=== PATIENT | male | born 1945 | race Caucasian/White ===

== ENCOUNTER 2017-12-26 07:55 | Day surgery (SDC) | payer MEDICARE, SELFPAY ==
[2017-12-26] VITALS (17 sets, daily range): BP systolic 60–122; BP diastolic 37–70; PULSE 64–76; RESP 14–20; TEMP 36.1–36.8; O2SAT 96–100; BMI 29.2
[2017-12-26] MEDS: SODIUM CHLORIDE 0.9% 1,000 ML 200 ML IV (08:57)
--- NOTE | 2017-12-26 09:08 | PM.HP.1 ---
History of Present Illness Chief complaint: colonoscopy [id number] Narrative: Shantanu Underwood is a 72 year old male Patient has a history of colon cancer with metastatic disease to the liver. He underwent a resection of his right colon and there was an exploration and the liver lesion after treatment had disappeared and become scar. He has had no recurrence since apparently. Patient History Medical History Diabetes mellitus treated with oral medication (Acute) Hypertension, essential (Acute) Peripheral vascular disease of extremity (Acute) Sleep apnea in adult (Acute) Surgical History Status post vascular bypass (Acute) Status post colectomy Family & Social History Social History: household members spouse Meds Home Medications Medication Instructions Recorded Confirmed Type Glucose: Test Strips 0 str QDAY #100 08/26/17 Rx atenolol 50 mg PO QDAY #90 tabs 08/26/17 Rx atorvastatin [Lipitor] 20 mg PO HS #90 tabs 08/26/17 Rx clopidogrel [Plavix] 75 mg PO QDAY #90 tabs 08/26/17 Rx lisinopril 5 mg PO QDAY #90 tabs 08/26/17 Rx metformin 1,000 mg PO BID #180 tab 08/26/17 Rx Allergies Allergy/AdvReac Type Severity Reaction Status Date / Time No Known Drug Allergies Allergy Verified 12/26/17 08:15 Review of Systems Review of Systems All systems reviewed & are unremarkable except as noted in HPI and below Exam Vital Signs (past 8 hours): Vital Signs - 8 hr 12/26/17 08:22 Temperature 98.2 F Pulse Rate 76 Respiratory Rate 16 Blood Pressure 122/70 H Pulse Oximetry 99 Pulse Oximetry 99 Oxygen Delivery Method Room Air Narrative Exam Narrative: Obese cooperative patient no apparent distress. His eyes are nonicteric. Lungs are clear to auscultation. Heart regular rate and rhythm without murmur gallop. Abdomen is soft protuberant nontender without mass. Alert oriented x3. Scars on left and right leg. The bypass is patent with a palpable pulse at the leg. Assessment & Plan Plan: Plan: Colonoscopy. Last exam 6 years ago. I have discussed procedure rationale. Risks of bleeding, perforation, failure to find removal lesions potential tattoo . Is a appears to understand wishes to proceed.
--- NOTE | 2017-12-26 09:14 | P.HP_ITS ---
History of Present Illness Chief complaint: colonoscopy [id number] Narrative: Shantanu Underwood is a 72 year old male Patient has a history of colon cancer with metastatic disease to the liver. He underwent a resection of his right colon and there was an exploration and the liver lesion after treatment had disappeared and become scar. He has had no recurrence since apparently. Patient History Medical History Diabetes mellitus treated with oral medication (Acute) Hypertension, essential (Acute) Peripheral vascular disease of extremity (Acute) Sleep apnea in adult (Acute) Surgical History Status post vascular bypass (Acute) Status post colectomy Family & Social History Social History: household members spouse Meds Home Medications Medication Instructions Recorded Confirmed Type Glucose: Test Strips 0 str QDAY #100 08/26/17 Rx atenolol 50 mg PO QDAY #90 tabs 08/26/17 Rx atorvastatin [Lipitor] 20 mg PO HS #90 tabs 08/26/17 Rx clopidogrel [Plavix] 75 mg PO QDAY #90 tabs 08/26/17 Rx lisinopril 5 mg PO QDAY #90 tabs 08/26/17 Rx metformin 1,000 mg PO BID #180 tab 08/26/17 Rx Allergies Allergy/AdvReac Type Severity Reaction Status Date / Time No Known Drug Allergies Allergy Verified 12/26/17 08:15 Review of Systems Review of Systems All systems reviewed & are unremarkable except as noted in HPI and below Exam Vital Signs (past 8 hours): Vital Signs - 8 hr 3 12/26/17 08:22 Temperature 98.2 F Pulse Rate 76 Respiratory Rate 16 Blood Pressure 122/70 H Pulse Oximetry 99 Pulse Oximetry 99 Oxygen Delivery Method Room Air Narrative Exam Narrative: Obese cooperative patient no apparent distress. His eyes are nonicteric. Lungs are clear to auscultation. Heart regular rate and rhythm without murmur gallop. Abdomen is soft protuberant nontender without mass. Alert oriented x3. Scars on left and right leg. The bypass is patent with a palpable pulse at the leg. Assessment & Plan Plan: Plan: Colonoscopy. Last exam 6 years ago. I have discussed procedure rationale. Risks of bleeding, perforation, failure to find removal lesions potential tattoo . Is a appears to understand wishes to proceed.
--- NOTE | 2017-12-26 09:27 | SUR.OPER ---
to endo from opd via cart respirations unlabored iv patent positioned per self for procedure
[2017-12-26] MEDS: MIDAZOLAM 5 MG/5 ML VIAL 4 MG IV (09:43)
[2017-12-26] MEDS: fentaNYL 250 MCG/5 ML INJ 150 MCG IV (09:43)
--- NOTE | 2017-12-26 09:44 | P.OP.ENDO_ITS ---
Operative Date/Time/Diagnoses - Date of procedure: 12/26/17 Time of procedure: 09:39 Pre-op diagnosis: Screening examination. History of colon cancer. Last exam 6 years ago. Post-op diagnosis: same (Diverticulosis, internal hemorrhoids) Procedure & Clinicians Study performed: Colonoscopy to the anastomosis. Same procedure as scheduled: Yes Indications: Screening Surgeon: Balaji Neff Procedure Notes SCOAP/Timeout: Performed Procedure in detail: The patient was placed in the left lateral decubitus position and underwent IV sedation directed by the surgeon consisting of fentanyl and Versed. Digital exam was remarkable for a flat prostate and a tight anus. He had a posterior midline sentinel pile.. The scope was inserted and advanced through the rectum into the sigmoid, descending, transverse, and ascending colon. I noted diverticulosis scattered in the sigmoid. No polyps were seen.. The anastomosis was reached identified by the blind and appearance , visible sutures, and the terminal small bowel at the anastomosis which was cannulated.. The terminal small bowel was normal in appearance. The scope was gradually brought out. No polyps were found The scope ultimately was retroflexed in the rectum. The appearance was internal hemorrhoids without ulceration. The scope was removed and the patient tolerated the procedure well Scope withdrawal time: Not applicable due to short co Sedation minutes: 20 Findings: diverticulosis and internal hemorrhoids Specimen(s): none sent Complications: none Recommendations: Colonscopy in 5 years Disposition: PACU
--- NOTE | 2017-12-26 09:47 | SUR.OPER ---
iv pulled out when patient turned. site and catheter intact
--- NOTE | 2017-12-26 10:09 | PM.PREOP ---
Pre-operative Note Interval Note Pre-op Check: History & Physical exam performed today H&P completed within 30 days and has changed as indicated here:: No changes. This is a late entry. ASA Class (for procedural sedation): III
--- NOTE | 2017-12-26 10:37 | SUR.PHASEI ---
Prolonged PACU stay related to vital signs. Have changed cuff placement. Patient in Trendelenberg with IVF open. Cognitively clear when awake, and awakens easily and quickly to voice, but otherwise sleeping.
--- NOTE | 2017-12-26 11:04 | SUR.PHASEI ---
Late note (10:55). Transferred to Phase 2 because has been totally stable, even BP that remains low. More routinely wakeful as well. Can watch in Phase 2 with IV remaining in situ.
== END 2017-12-26 12:10 | disposition home or self-care (01) ==
PROVIDERS: PCP Family Medicine; Visit Provider Specialist
PROC: 0DJD8ZZ Inspection of Lower Intestinal Tract, Via Natural or Artificial Opening Endoscopic (ICD-10-PCS; CPT 45378; principal; 2017-12-26 08:45)
DX: Z85.038 Personal history of other malignant neoplasm of large intestine (principal); K57.30 Diverticulosis of large intestine without perforation or abscess without bleeding; K64.8 Other hemorrhoids; Z90.49 Acquired absence of other specified parts of digestive tract; E11.9 Type 2 diabetes mellitus without complications; I10 Essential (primary) hypertension; G47.33 Obstructive sleep apnea (adult) (pediatric); I73.9 Peripheral vascular disease, unspecified
CPT/HCPCS: G0105; 99152; J2250; J3010

== ENCOUNTER → 2018-06-15 13:29 | Outpatient (REF) | payer MEDICARE, SELFPAY | LOC: LAB 13:29 | PROVIDERS: PCP Family Medicine; Visit Provider Dermatology MOHS-Micrographic Surgery | DX: L01.01 Non-bullous impetigo (principal) | CPT/HCPCS: 87070; 87075; 87077; 87147; 87186; 87205 ==

== ENCOUNTER 2018-07-08 09:34 | Emergency (ER) | payer MEDICARE, SELFPAY ==
[2018-07-08] VITALS (7 sets, daily range): BP systolic 91–129; BP diastolic 58–86; PULSE 70–97; RESP 14–21; TEMP 36.8; O2SAT 97–100
--- NOTE | 2018-07-08 10:34 | ED.GENADULT ---
HPI - General Adult General Chief complaint: Urogenital-Male Stated complaint: THINKS HE HAS KIDNEY STONES Time Seen by Provider: 07/08/18 09:55 Source: patient Mode of arrival: ambulatory Limitations: no limitations History of Present Illness HPI narrative: Patient is a 73-year-old male who presents with a variety of complaints. His complaint is he has left-sided flank pain. He does have a history of kidney stones only 1 6 years ago. As he feels like he has left flank pain it sometimes is radiating it has been rather constant. He cannot get comfortable at night when he sleeps. He denies any injury no radiation to his leg. No real radiation around to his abdomen or groin. He has no blood in his urine. No fevers. He occasionally feels nauseated but no vomiting. Is also complaining of shortness of breath. He says he has shortness of breath with exertion. Related Data Home Medications Medication Instructions Recorded Confirmed Glucose: Test Strips 0 str MISCELLANEOUS QDAY 07/08/18 07/08/18 atenolol 50 mg PO DAILY 07/08/18 07/08/18 atorvastatin [Lipitor] 20 mg PO BEDTIME 07/08/18 07/08/18 clopidogrel [Plavix] 75 mg PO DAILY 07/08/18 07/08/18 doxycycline hyclate 20 mg PO DAILY 07/08/18 07/08/18 lisinopril 5 mg PO DAILY 07/08/18 07/08/18 Previous Rx's Medication Instructions Recorded metformin 1,000 mg PO BID #180 tab 08/26/17 Allergies Allergy/AdvReac Type Severity Reaction Status Date / Time No Known Drug Allergies Allergy Verified 03/27/18 13:40 Review of Systems Review of Systems All systems reviewed & are unremarkable except as noted in HPI and below Constitutional Denies chills, Denies fever(s), Denies lethargy and Denies weakness ENT Ears, Nose, Mouth, and Throat: Denies change in voice, Denies vertigo, Denies dizziness, Denies neck pain and Denies sore throat Cardiovascular Denies chest pain, Denies irregular heart rhythm, Denies lightheadedness, Denies palpitations, Reports dyspnea on exertion and Denies orthopnea Respiratory Denies cough, Denies hemoptysis, Reports dyspnea on exertion and Denies wheezing Gastrointestinal Gastrointestinal: Reports abdominal pain (Left-sided), Denies change in bowel habits, Denies diarrhea, Denies nausea and Denies vomiting Genitourinary Denies hematuria, Denies flank pain, Denies urinary incontinence and Denies urinary urgency Musculoskeletal Denies neck pain Neurologic Denies vertigo, Denies dizziness and Denies weakness Endocrine Denies palpitations Allergic/Immunologic Denies wheezing [facility] Medical History Zjsysal-Dynxx-Fhfvf disease (Acute) Kidney stones (Acute) Diabetes mellitus treated with oral medication (Acute) Hypertension, essential (Acute) Peripheral vascular disease of extremity (Acute) Sleep apnea in adult (Acute) Surgical History Status post vascular bypass (Acute) Status post colectomy Social History household members: spouse Smoking Status: Former smoker Exam Initial Vital Signs Initial Vital Signs: Vital Signs Temperature 98.3 F 07/08/18 09:35 Pulse Rate 70 07/08/18 09:35 Respiratory Rate 14 07/08/18 09:35 Blood Pressure 129/67 07/08/18 09:35 Pulse Oximetry 100 07/08/18 09:35 Const General: cooperative and ill appearing (Chronic) Orientation: alert, awake and oriented x3 HENMT Head: normal to inspection and normocephalic Eyes General: appearance normal, both eyes and all related structures Neck Neck: normal visual inspection, full ROM and no meningeal signs Chest Chest: normal inspection of the chest and normal palpation of entire chest wall Resp Effort & Inspection: normal respiratory effort and able to speak in complete sentences Auscultation: clear to auscultation bilaterally, no rales, no rhonchi and no wheezes Cardio Rate: regular rate Rhythm: regular rhythm Heart Sounds: S1 normal and S2 normal GI Inspection: normal to inspection Palpation: soft, No firm and tender (Mild tenderness all left side no guarding no rebound) General: CVA tenderness (Mild left, no right CVA tenderness) Skin General: no rashes or lesions noted, No jaundice and No petechiae Neuro General: alert, awake and oriented x3 Cranial Nerves: CN's II-XI intact bilaterally Speech: speech normal Gait: normal gait Extrem Other: Extremity muscle wasting full range of motion Course Orders Ordered: ED Orders 07/08/18 10:46 XR chest 1V Stat EKG-12 Lead Stat 07/08/18 10:51 CT kidney ureter bladder (KUB) Stat 07/08/18 10:55 Complete Blood Count AUTO DIFF Stat Comprehensive Metabolic Panel Stat Lipase Stat Partial Thromboplastin Time Stat Prothrombin Time INR Stat Troponin & CK Cardiac Panel Stat Discontinued Medications Albuterol (Ventolin) 2.5 mg INH NOW ONE Stop: 07/08/18 10:39 Last Admin: 07/08/18 10:39 Dose: 2.5 mg Dextrose (D50w) 25 gm IV NOW ONE Stop: 07/08/18 12:44 Last Admin: 07/08/18 13:56 Dose: 25 gm Furosemide (Lasix) 40 mg IV NOW ONE Stop: 07/08/18 12:44 Last Admin: 07/08/18 13:56 Dose: 40 mg Sodium Chloride (Normal Saline 0.9%) 1,000 mls @ 1,000 mls/hr IV BOLUS ONE Stop: 07/08/18 13:43 Last Admin: 07/08/18 13:56 Dose: 1,000 mls/hr Insulin Human Regular (Humulin R) 10 unit IV NOW ONE Stop: 07/08/18 12:44 Last Admin: 07/08/18 13:56 Dose: 10 unit Ketorolac Tromethamine (Toradol) 30 mg IM NOW ONE Stop: 07/08/18 12:00 Last Admin: 07/08/18 12:08 Dose: 30 mg Sodium Polystyrene Sulfonate (Kayexalate) 30 gm PO NOW ONE Stop: 07/08/18 12:44 Last Admin: 07/08/18 13:03 Dose: 30 gm Vital Signs - 8 hr 07/08/18 09:35 07/08/18 10:40 07/08/18 13:01 Temperature 98.3 F Pulse Rate 70 97 H 80 Respiratory Rate 14 16 14 Blood Pressure 129/67 Blood Pressure [Left Arm] 116/66 Pulse Oximetry 100 97 98 07/08/18 13:30 07/08/18 14:10 07/08/18 14:39 Temperature Pulse Rate 78 84 84 Respiratory Rate 21 18 20 Blood Pressure Blood Pressure [Left Arm] 108/86 114/83 91/58 L Pulse Oximetry 98 98 100 07/08/18 14:40 Temperature Pulse Rate 80 Respiratory Rate 19 Blood Pressure Blood Pressure [Left Arm] 93/62 Pulse Oximetry 100 Medical Decision Making Lab Data Lab results reviewed: Yes I reviewed the patient's lab results. Result diagrams: 07/08/18 10:55 07/08/18 10:55 Lab Results 07/08/18 07/08/18 07/08/18 Range/Units 10:55 10:55 10:55 WBC 9.4 (4.5-11.0) X10^3/uL RBC 4.19 L (4.5-5.9) X10^6/uL Hgb 11.8 L (13.5-17.5) g/dL Hct 36.2 L (41-53) % MCV 86.4 (80-100) fL MCH 28.2 (26-34) PG MCHC 32.6 (30-36) % RDW 16.8 H (11.6-14.8) % Plt Count 180 (150-400) X10^3/uL Neut % (Auto) 81.8 H (50-75) % Lymph % (Auto) 9.3 L (25-40) % [place] % (Auto) 8.2 (3-14) % Eos % (Auto) 0.3 L (2-4) % Baso % (Auto) 0.4 (0-2) % Neut # (Auto) 7700 H (9844-6456) /uL PT 11.6 (10.1-12.7) SECONDS INR 1.0 (0.9-1.3) APTT 32 (26.4-36.2) SECONDS Sodium 140 (137-145) mmol/L Potassium 6.2 H (3.4-5.1) mmol/L Chloride 108 H (98-107) mmol/L Carbon Dioxide 12 L (22-32) mmol/L BUN 75 H (9-20) mg/dL Creatinine 6.90 H (0.66-1.25) mg/dL Estimated GFR 7.9 L (>60) mL/min BUN/Creatinine Ratio 10.9 (6-22) Glucose 125 H (80-110) mg/dL Calcium 9.1 (8.4-10.2) mg/dL Total Bilirubin 0.3 (0.2-1.3) mg/dL AST 13 L (17-59) IU/L ALT 30 (21-72) IU/L Alkaline Phosphatase 75 (38-126) U/L Total Creatine Kinase 82 (55-170) U/L CK-MB (CK-2) TNP CK-MB (CK-2) Rel Index TNP Troponin I < 0.012 (0.01-0.034) ng/mL Total Protein 7.7 (6.3-8.2) g/dL Albumin 4.5 (3.5-5.0) g/dL Globulin 3.2 (1.7-4.1) g/dL Albumin/Globulin Ratio 1.4 (1.0-2.8) Lipase 267 (23-300) U/L Point of Care Testing Glucose POC 196 Urine Dip Bedside Urine Glucose Negative Bedside Urine Bilirubin - Negative Bedside Urine Ketone - Negative Urine Specific [place] 1.015 Bedside Urine Occult Blood + Bedside Urine pH 6.0 Bedside Urine Protein +/- 15 Bedside Urine Urobilinogen - Negative Bedside Urine Nitrite - Negative Bedside Urine Leukocytes + 70 Esterase Point of care testing: Point of Care Testing Glucose POC 196 Urine Dip Bedside Urine Glucose Negative Bedside Urine Bilirubin - Negative Bedside Urine Ketone - Negative Urine Specific [place] 1.015 Bedside Urine Occult Blood + Bedside Urine pH 6.0 Bedside Urine Protein +/- 15 Bedside Urine Urobilinogen - Negative Bedside Urine Nitrite - Negative Bedside Urine Leukocytes + [address] scan - abdomen: Radiologist's impression: PROCEDURE: CT KIDNEY URETER BLADDER (KUB) INDICATIONS: left flank pain TECHNIQUE: Noncontrast 5 mm thick sections acquired from the diaphragms to the symphysis. 5 mm thick coronal and sagittal reformats were then performed. For radiation dose reduction, the following was used: automated exposure control, adjustment of mA and/or kV according to patient size. COMPARISON: [facility], CT, CT CHEST ABD PELVIS W CON, 04/17/2015, 12:46. [facility], CT, ABDOMEN/PELVIS WITH CONTRAST, 02/09/2013, 21:55. FINDINGS: Image quality: Excellent. Lung bases: Lung bases are clear. Heart size is normal. Urinary system: Both kidneys are normal in size. There are 3 sub-centimeter calcifications within the left kidney, one in the superior pole and 2 in the inferior pole. The largest measures 3 mm, Hounsfield units 418. It is noted that there was a 9 mm calcification within the renal pelvis on the left in 2014. There is a 9 mm calcification in the proximal left ureter Hounsfield units 1415 causing severe hydronephrosis and perinephric and periureteral stranding. The right kidney demonstrates 3 calcifications all within the superior pole, the largest measuring approximately 7 mm, Hounsfield units 730. There are 3 calcifications identified within the right ureter with a more proximal 2 lesions partially obscured by metallic streak artifact from adjacent clips. However, the 2 most proximal lesions measure 6 mm and 9 mm respectively. The more distal lesion at the proximal aspect of the mid ureter measures approximately 9 mm. Hounsfield units measure 875 1196, and 1124 respectively. There is severe right hydronephrosis and proximal hydroureter. Bladder is incompletely distended with a thickened wall; no calcified bladder stones. The prostate gland is enlarged with calcification. Other solid organs: Liver is normal in size. Gallbladder has been removed. Pancreas is normal in contours. Spleen is normal in size. No adrenal nodules. Peritoneum and bowel: Unenhanced bowel loops demonstrate normal wall thickness and caliber. No free fluid or air. Diverticula without inflammatory change. Nodes and vessels: No retroperitoneal or mesenteric adenopathy by size criteria. Aorta and inferior vena cava are normal in caliber. Abdominal wall: No ventral hernias. Pelvis: No free pelvic fluid. No inguinal hernias or adenopathy. Bones: No suspicious bony lesions. No vertebral body compression fractures. IMPRESSION: 1. Severe bilateral hydronephrosis with obstructing calculi as above. 2. Thickened bladder wall suspected to be secondary to incomplete distention. However, recommend evaluation for cystitis if clinically appropriate, as it can have a similar appearance. 3. Diverticulosis. Dictated by: Yasmeen Saini M.D. on 07/08/2018 at 11:13 Chest x-ray: Radiologist's impression: PROCEDURE: XR CHEST 1V INDICATIONS: short of breath TECHNIQUE: One view of the chest was acquired. COMPARISON: [facility], CT, CT CHEST ABD PELVIS W CON, 04/17/2015, 12:46. [facility], CR, CHEST 2 VIEW, 07/07/2012, 10:10. FINDINGS: Surgical changes and devices: None. Lungs and pleura: No pleural effusions or pneumothorax. Lungs are clear. Left hemidiaphragm is elevated. Mediastinum: Mediastinal contours appear normal. Heart size is normal. Bones and chest wall: No suspicious bony lesions. Overlying soft tissues appear unremarkable. IMPRESSION: Elevated left hemidiaphragm of uncertain etiology. Dictated by: Naty Baptiste MD, PhD on 07/08/2018 at 11:20 ECG Data Attestation: I personally reviewed and interpreted this ECG as follows: Prior ECG tracings: not available for review Interpretation: normal sinus rate 79 [place] interval 146, QRS 85 no Q-waves is no U-waves, in possible Peaked T waves in V2 V3 but very slight. No priors to compare MDM Narrative Medical decision making narrative: I have called [facility] to get in touch with their urologist. However they are full and do not have any beds. I spoke with hospitalist at [facility] says , who happily accepts patient requests I talked to [facility]. I spoke with [facility] for Urology who was made aware of patient. She does agree to see the patient. Patient has been NPO since around 8:00 a.m. he will be going to the OR at [facility] at 3:30 p.m.. Patient remains alert cooperative hemodynamically stable. His ground transport by ambulance is over 4 hr, he will not make it to the OR as scheduled. Air lift has been called. The patient will be going immediately to the OR for lithotripsy and acute renal failure. He has had a bowel movement with the Kayexalate. Critical Care Time Critical Care Time: Yes Total Critical Care Time: 30 Attestation: The high probability of a clinically significant, sudden or life threatening deterioration of the [cardiovascular] system(s) required my full and direct attention, intervention and personal management. The aggregate critical care time was [45] minutes. This time is in addition to time spent performing reported procedures but includes the following: [x] Data Review and interpretation [x] Patient assessment and monitoring of vital signs [x] Documentation [x] Medication orders and management Discharge Plan Departure Patient Disposition: [facility] Clinical Impression: Kidney stones, Acute renal failure, Acute hyperkalemia Instructions: DI for Kidney Stones, DI for Extracorporeal Shock Wave Lithotripsy Prescriptions: No Action metformin 1,000 MG tablet 1,000 mg PO BID Qty: 180 RF: 3 atenolol 25 mg tablet 50 mg PO DAILY RF: 0 doxycycline hyclate 20 mg tablet 20 mg PO DAILY RF: 0 atorvastatin [Lipitor] 20 MG tablet 20 mg PO BEDTIME RF: 0 clopidogrel [Plavix] 75 MG tablet 75 mg PO DAILY RF: 0 lisinopril 5 MG tablet 5 mg PO DAILY RF: 0 Glucose: Test Strips miscellaneous QDAY RF: 0
[2018-07-08] MEDS: ALBUTEROL 2.5 MG/3 ML NEB (ADULT) INH (10:39)
--- NOTE | 2018-07-08 10:46 | DI.RAD.S_ITS ---
PROCEDURE: XR CHEST 1V INDICATIONS: short of breath TECHNIQUE: One view of the chest was acquired. COMPARISON: [facility], CT, CT CHEST ABD PELVIS W CON, 04/17/2015, 12:46. [facility], CR, CHEST 2 VIEW, 07/07/2012, 10:10. FINDINGS: Surgical changes and devices: None. Lungs and pleura: No pleural effusions or pneumothorax. Lungs are clear. Left hemidiaphragm is elevated. Mediastinum: Mediastinal contours appear normal. Heart size is normal. Bones and chest wall: No suspicious bony lesions. Overlying soft tissues appear unremarkable. IMPRESSION: Elevated left hemidiaphragm of uncertain etiology. Dictated by: Naty Baptiste MD, PhD on 07/08/2018 at 11:20 Approved by: Naty Baptiste MD, PhD on 07/08/2018 at 11:21
--- NOTE | 2018-07-08 10:51 | DI.CT.S_ITS ---
PROCEDURE: CT KIDNEY URETER BLADDER (KUB) INDICATIONS: left flank pain TECHNIQUE: Noncontrast 5 mm thick sections acquired from the diaphragms to the symphysis. 5 mm thick coronal and sagittal reformats were then performed. For radiation dose reduction, the following was used: automated exposure control, adjustment of mA and/or kV according to patient size. COMPARISON: [facility], CT, CT CHEST ABD PELVIS W CON, 04/17/2015, 12:46. [facility], CT, ABDOMEN/PELVIS WITH CONTRAST, 02/09/2013, 21:55. FINDINGS: Image quality: Excellent. Lung bases: Lung bases are clear. Heart size is normal. Urinary system: Both kidneys are normal in size. There are 3 sub-centimeter calcifications within the left kidney, one in the superior pole and 2 in the inferior pole. The largest measures 3 mm, Hounsfield units 418. It is noted that there was a 9 mm calcification within the renal pelvis on the left in 2014. There is a 9 mm calcification in the proximal left ureter Hounsfield units 1415 causing severe hydronephrosis and perinephric and periureteral stranding. The right kidney demonstrates 3 calcifications all within the superior pole, the largest measuring approximately 7 mm, Hounsfield units 730. There are 3 calcifications identified within the right ureter with a more proximal 2 lesions partially obscured by metallic streak artifact from adjacent clips. However, the 2 most proximal lesions measure 6 mm and 9 mm respectively. The more distal lesion at the proximal aspect of the mid ureter measures approximately 9 mm. Hounsfield units measure 875 1196, and 1124 respectively. There is severe right hydronephrosis and proximal hydroureter. Bladder is incompletely distended with a thickened wall; no calcified bladder stones. The prostate gland is enlarged with calcification. Other solid organs: Liver is normal in size. Gallbladder has been removed. Pancreas is normal in contours. Spleen is normal in size. No adrenal nodules. Peritoneum and bowel: Unenhanced bowel loops demonstrate normal wall thickness and caliber. No free fluid or air. Diverticula without inflammatory change. Nodes and vessels: No retroperitoneal or mesenteric adenopathy by size criteria. Aorta and inferior vena cava are normal in caliber. Abdominal wall: No ventral hernias. Pelvis: No free pelvic fluid. No inguinal hernias or adenopathy. Bones: No suspicious bony lesions. No vertebral body compression fractures. IMPRESSION: 1. Severe bilateral hydronephrosis with obstructing calculi as above. 2. Thickened bladder wall suspected to be secondary to incomplete distention. However, recommend evaluation for cystitis if clinically appropriate, as it can have a similar appearance. 3. Diverticulosis. Dictated by: Yasmeen Saini M.D. on 07/08/2018 at 11:13 Approved by: Yasmeen Saini M.D. on 07/08/2018 at 11:31
[2018-07-08 11:05] LABS: Add Manual Diff / Slide Review NO; Basophils Percent Auto 0.4 % (0-2); Eosinophils Percent Auto 0.3 % (2-4); Hematocrit 36.2 % (41-53); Hemoglobin 11.8 g/dL (13.5-17.5); Lymphocytes Percent Auto 9.3 % (25-40); Mean Corpuscular HGB Conc 32.6 % (30-36); Mean Corpuscular Hemoglobin 28.2 PG (26-34); Mean Corpuscular Volume 86.4 fL (80-100); Monocytes Percent Auto 8.2 % (3-14); Neutrophils Absolute Auto 7700 /uL (3000-5900); Neutrophils Percent Auto 81.8 % (50-75); Platelet Count 180 X10^3/uL (150-400); Red Blood Cell Count 4.19 X10^6/uL (4.5-5.9); Red Cell Distribution Width 16.8 % (11.6-14.8); White Blood Cell Count 9.4 X10^3/uL (4.5-11.0)
[2018-07-08 11:11] LABS: Prothrombin Time 11.6 SECONDS (10.1-12.7)
[2018-07-08 11:14] LABS: PTT Partial Thromboplastin Tim 32 SECONDS (26.4-36.2)
[2018-07-08 11:15] LABS: Alanine Aminotransferase 30 IU/L (21-72); Albumin 4.5 g/dL (3.5-5.0); Albumin Globulin Ratio 1.4 (1.0-2.8); Alkaline Phosphatase 75 U/L (38-126); Aspartate Aminotransferase 13 IU/L (17-59); BUN Creatinine Ratio 10.9 (6-22); Bilirubin Total 0.3 mg/dL (0.2-1.3); Blood Urea Nitrogen 75 mg/dL (9-20); Calcium 9.1 mg/dL (8.4-10.2); Carbon Dioxide 12 mmol/L (22-32); Chloride 108 mmol/L (98-107); Creatine Kinase 82 U/L (55-170); Estimated Glomerular Filt Rate 7.9 mL/min (>60); Globulin 3.2 g/dL (1.7-4.1); Glucose 125 mg/dL (80-110); HEMOLYSIS < 15 (0-50); Lipase 267 U/L (23-300); Sodium 140 mmol/L (137-145); Total Protein 7.7 g/dL (6.3-8.2)
[2018-07-08 11:31] LABS: Troponin I < 0.012 ng/mL (0.01-0.034)
[2018-07-08 11:33] LABS: Potassium 6.2 mmol/L (3.4-5.1)
[2018-07-08] MEDS: KETOROLAC 60 MG/2 ML VIAL 30 MG IM (12:08)
[2018-07-08] MEDS: SODIUM POLYSTYRENE SULFON/SORB 15 GM/60 ML CUP 30 GM PO (13:03)
--- NOTE | 2018-07-08 13:43 | PC.NURSE ---
youmag power midline cath 20g 8cm line placed upper lt arm cephalic vein. flushes well.
[2018-07-08] MEDS: SODIUM CHLORIDE 0.9% 1,000 ML 1000 ML IV (13:56)
[2018-07-08] MEDS: INSULIN REGULAR 100 UNIT/ML 3 ML VIAL 10 UNIT IV (13:56)
[2018-07-08] MEDS: FUROSEMIDE 40 MG/4 ML VIAL IV (13:56)
[2018-07-08] MEDS: DEXTROSE 50 % IN WATER 25 GM/50 ML SYRINGE IV (13:56)
== END 2018-07-08 15:28 | disposition short-term general hospital (02) ==
PROVIDERS: Emergency Provider Emergency Medicine; PCP Student in an Organized Health Care Education/Training Program
DX: N20.0 Calculus of kidney (principal); N17.9 Acute kidney failure, unspecified; E87.5 Hyperkalemia
CPT/HCPCS: 36415; 51701; 71045; 74176; 80053; 81003; 82550; 82962; 83690; 84484; 85025; 85610; 85730; 93005; 93010; 94150; 94640; 96361; 96372; 96374; 96375; 99285; J1885; J1940; J7613

== ENCOUNTER 2018-07-19 09:05 | Emergency (ER) | payer MEDICARE, SELFPAY ==
[2018-07-19 09:14] VITALS: BP 146/71; PULSE 61; RESP 20; TEMP 36.5; O2SAT 97
--- NOTE | 2018-07-19 09:29 | DI.RAD.S_ITS ---
PROCEDURE: XR KUB INDICATIONS: recent B/L ureteral stent TECHNIQUE: One view of the abdomen acquired. COMPARISON: [facility], CT, CT KIDNEY URETER BLADDER (KUB), 07/08/2018, 10:56. FINDINGS: Surgical changes and devices: Multiple surgical clips are present in the right mid abdomen. There are bilateral ureteral stents in expected position. Bowel: Bowel gas pattern is normal. Soft tissues: Bilateral renal and ureteral calculi are present. Visualized solid organ contours appear normal in size. Bones: No suspicious bony lesions. IMPRESSION: Bilateral renal and ureteral calculi. The ureteral stents are in appropriate position. Dictated by: Gilberto Pollard M.D. on 07/19/2018 at 10:30 Approved by: Gilberto Pollard M.D. on 07/19/2018 at 10:37
--- NOTE | 2018-07-19 09:49 | ED_ITS ---
HPI - General Adult General Chief complaint: Diabetic Problem Stated complaint: DIABETIC PROBLEM Time Seen by Provider: 07/19/18 09:29 Source: patient Mode of arrival: ambulatory Limitations: no limitations History of Present Illness HPI narrative: 73-year-old male presents with his , nonsmoker. He presents with a chief complaint slightly elevated blood sugars in the 160s to 180s and general feeling of malaise and being unwell for the past few days. 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 He had bilateral ureteral stents placed and they are awaiting a resolution of his renal failure to perform lithotripsy. During hospitalization he was encouraged to stop taking his metformin until his creatinine resolves. He has not taken any diabetic meds since his discharge. He was evaluated here on July 08 and transferred that day. He has an upcoming appointment for completion of his surgery on July 29. He is not dizzy nor weak or lightheaded. He denies chest pain or shortness of breath Onset (ago): day(s) Related Data Home Medications Medication Instructions Recorded Confirmed Glucose: Test Strips 0 str MISCELLANEOUS QDAY 07/08/18 07/08/18 atenolol 50 mg PO DAILY 07/08/18 07/08/18 atorvastatin [Lipitor] 20 mg PO BEDTIME 07/08/18 07/08/18 clopidogrel [Plavix] 75 mg PO DAILY 07/08/18 07/08/18 doxycycline hyclate 20 mg PO DAILY 07/08/18 07/08/18 lisinopril 5 mg PO DAILY 07/08/18 07/08/18 Allergies Allergy/AdvReac Type Severity Reaction Status Date / Time No Known Drug Allergies Allergy Verified 07/19/18 09:14 Review of Systems Review of Systems All systems reviewed & are unremarkable except as noted in HPI and below Constitutional Denies chills, Denies fever(s), Denies lethargy, Reports malaise and Reports weakness Eyes Denies change in vision, Denies eye discharge, Denies irritation and Denies loss of vision ENT Ears, Nose, Mouth, and Throat: Denies change in voice, Denies neck pain and Denies sore throat Cardiovascular Denies chest pain, Denies irregular heart rhythm, Denies lightheadedness, Denies palpitations, Denies dyspnea, Denies dyspnea on exertion and Denies orthopnea Respiratory Denies cough, Denies dyspnea, Denies dyspnea on exertion and Denies wheezing Gastrointestinal Gastrointestinal: Denies abdominal pain, Denies change in bowel habits, Denies diarrhea, Denies nausea and Denies vomiting Genitourinary Denies hematuria, Denies flank pain, Denies urinary incontinence and Denies urinary urgency Musculoskeletal Denies neck pain Integumentary/Breasts Denies pruritus, Denies erythema, Denies rash and Denies wounds Neurologic Denies confusion, Denies loss of vision and Reports weakness Psychiatric Denies anxiety, Denies confusion, Denies depression, Denies homicidal ideation and Denies suicidal ideation Endocrine Denies palpitations Hematologic/Lymphatic Denies easy bruising Allergic/Immunologic Denies wheezing [facility] Medical History Kbgspxs-Tdmro-Kornb disease (Acute) Diabetes mellitus treated with oral medication (Acute) Hypertension, essential (Acute) Kidney stones (Acute) Peripheral vascular disease of extremity (Acute) Sleep apnea in adult (Acute) Surgical History Status post vascular bypass (Acute) Status post colectomy Social History household members: spouse Smoking Status: Former smoker Exam Narrative Exam Narrative: 73-year-old male, pleasant and in no significant distress. He appears younger than stated age. Initial Vital Signs Initial Vital Signs: Vital Signs Temperature 97.7 F 07/19/18 09:14 Pulse Rate 61 07/19/18 09:14 Respiratory Rate 20 07/19/18 09:14 Blood Pressure 146/71 H 07/19/18 09:14 Pulse Oximetry 97 07/19/18 09:14 Const General: cooperative and well developed Nutritional Appearance: well nourished Orientation: alert, awake, oriented x3 and not confused [facility] Head: normocephalic and atraumatic Ears: external ears normal and TM's normal bilaterally Nose: external nose normal and No nasal discharge Face and sinus: sinuses nontender, face symmetric, no sinus tenderness and No dry mucous membranes Mouth: oral mucosae normal and moist mucous membranes Teeth and gingiva: dentition normal Throat: tonsils normal and uvula midline Eyes General: appearance normal, both eyes and all related structures Eyelids: eyelids normal Conjunctivae: conjunctivae normal Sclera: sclerae normal Pupils: PERRL EOM: EOM intact bilaterally Neck Neck: normal visual inspection, trachea midline, No lymphadenopathy, No midline deformity and No JVD Lymphatic: No lymphedema Chest Chest: normal inspection of the chest Resp Effort & Inspection: normal respiratory effort, able to speak in complete sentences, no respiratory distress and no use of accessory muscles Auscultation: clear to auscultation bilaterally, no rales, no rhonchi and no wheezes Cardio Rate: regular rate Rhythm: regular rhythm Heart Sounds: no click, no gallops, no murmurs and no rubs Pulses: normal peripheral pulses Back/Spine/Pelvis Back: No CVA tenderness Cervical Spine: cervical ROM normal and No pain with cervical ROM Thoracic/Lumbar Spine: thoracic and lumbar spine normal to inspection Neuro General: alert, oriented x3, gait normal and no focal motor deficits Speech: speech normal Extrem General: full ROM, no clubbing, cyanosis or edema, no pedal edema and no calf tenderness Psych Appearance: well kempt Mental Status: mental status grossly normal Attitude: cooperative Thought Content: normal and suicidality Judgment: judgment good Course Orders Ordered: ED Orders 07/19/18 10:00 Comprehensive Metabolic Panel Stat Lactate (Lactic Acid) Stat Procalcitonin Stat 07/19/18 11:44 Urine Culture Stat Urine Microscopic Stat Reevaluation(s) Reevaluation #1: Patient continues to be largely asymptomatic for the duration of his time in the emergency department Consultations Consultation #1: call to Urology at [facility]. She is comfortable with patient resuming metformin now that renal function has normalized. Happy that labs look good and Xray notes stents in place. She verifies that patient has follow up on 07/29 Vital Signs - 8 hr 07/19/18 10:48 07/19/18 11:00 07/19/18 12:00 Pulse Rate 65 62 64 Respiratory Rate 16 18 Blood Pressure Blood Pressure [Left Arm] 114/74 116/69 137/75 Pulse Oximetry 96 100 100 07/19/18 12:01 Pulse Rate 64 Respiratory Rate 18 Blood Pressure 137/75 Blood Pressure [Left Arm] Pulse Oximetry 100 Medical Decision Making Lab Data Result diagrams: 07/19/18 10:00 Lab Results 07/19/18 07/19/18 07/19/18 Range/Units 10:00 10:00 10:00 Sodium Cancelled 142 Potassium Cancelled 4.6 Chloride Cancelled 106 Carbon Dioxide Cancelled 21 L BUN Cancelled 34 H Creatinine Cancelled 1.20 Estimated GFR Cancelled 59.2 L BUN/Creatinine Ratio Cancelled 28.3 H Glucose Cancelled 143 H Lactate (0.7-2.1) mmol/L Calcium Cancelled 8.6 Total Bilirubin 0.2 (0.2-1.3) mg/dL AST 30 (17-59) IU/L ALT 61 (21-72) IU/L Alkaline Phosphatase 79 (38-126) U/L Total Protein 6.6 (6.3-8.2) g/dL Albumin 3.9 (3.5-5.0) g/dL Globulin 2.7 (1.7-4.1) g/dL Albumin/Globulin Ratio 1.4 (1.0-2.8) Procalcitonin < 0.05 (<0.5) ng/mL Specimen Hemolysis Cancelled Urine RBC (0-5/HPF) Urine WBC (0-5/HPF) Ur Squamous Epith Cells Urine Bacteria (None) Ur Culture Indicated? Micro UA Comment 07/19/18 07/19/18 Range/Units 10:00 11:44 Sodium Potassium Chloride Carbon Dioxide BUN Creatinine Estimated GFR BUN/Creatinine Ratio Glucose Lactate 1.8 (0.7-2.1) mmol/L Calcium Total Bilirubin (0.2-1.3) mg/dL AST (17-59) IU/L ALT (21-72) IU/L Alkaline Phosphatase (38-126) U/L Total Protein (6.3-8.2) g/dL Albumin (3.5-5.0) g/dL Globulin (1.7-4.1) g/dL Albumin/Globulin Ratio (1.0-2.8) Procalcitonin (<0.5) ng/mL Specimen Hemolysis Urine RBC 30-100/hpf H (0-5/HPF) Urine WBC 10-30/hpf H (0-5/HPF) Ur Squamous Epith Cells 0-1 /hpf Urine Bacteria Moderate (10-30) H (None) Ur Culture Indicated? Specimen cultured Micro UA Comment Not Reportable Urine Dip Bedside Urine Glucose Negative Bedside Urine Bilirubin - Negative Bedside Urine Ketone - Negative Urine Specific Slater 1.015 Bedside Urine Occult Blood +++ Bedside Urine pH 6.0 Bedside Urine Protein + 30 Bedside Urine Urobilinogen - Negative Bedside Urine Nitrite - Negative Bedside Urine Leukocytes + 70 Esterase Point of care testing: Urine Dip Bedside Urine Glucose Negative Bedside Urine Bilirubin - Negative Bedside Urine Ketone - Negative Urine Specific Slater 1.015 Bedside Urine Occult Blood +++ Bedside Urine pH 6.0 Bedside Urine Protein + 30 Bedside Urine Urobilinogen - Negative Bedside Urine Nitrite - Negative Bedside Urine Leukocytes + 70 Esterase Discharge Plan Departure Patient Disposition: Home Clinical Impression: Acute hyperglycemia Discharge Date/Time: 07/19/18 12:02 Interventions: ED Discharge Assessment Last Done: 07/19/18 12:01 Instructions: DI for Hyperglycemia -- Adult Activity Restrictions/Additional Instructions: *You have been diagnosed with [ acute mild hyperglycemia ] *What to do: *Take medications as directed: PLEASE RESUME METFORMIN as previously prescribed. Your kidney function has returned to normal *Please call Dr. Ferguson's office tomorrow to schedule an appointment. Tell them you saw Dr. Sepulveda in the Emergency Department and I want you seen in follow up this week to discuss ongoing management of your diabetes. *Return to ER if you should have any new, worsening or concerning symptoms , such as [weakness, fatigue, fever over 101F or other bothersome symptoms ] Prescriptions: No Action atenolol 25 mg tablet 50 mg PO DAILY RF: 0 doxycycline hyclate 20 mg tablet 20 mg PO DAILY RF: 0 atorvastatin [Lipitor] 20 MG tablet 20 mg PO BEDTIME RF: 0 clopidogrel [Plavix] 75 MG tablet 75 mg PO DAILY RF: 0 lisinopril 5 MG tablet 5 mg PO DAILY RF: 0 Glucose: Test Strips miscellaneous QDAY RF: 0 Referrals: Dmitry Ferguson MD [Primary Care Provider] -
[2018-07-19 10:19] LABS: Alanine Aminotransferase 61 IU/L (21-72); Albumin 3.9 g/dL (3.5-5.0); Albumin Globulin Ratio 1.4 (1.0-2.8); Alkaline Phosphatase 79 U/L (38-126); Aspartate Aminotransferase 30 IU/L (17-59); BUN Creatinine Ratio 28.3 (6-22); Bilirubin Total 0.2 mg/dL (0.2-1.3); Blood Urea Nitrogen 34 mg/dL (9-20); Calcium 8.6 mg/dL (8.4-10.2); Carbon Dioxide 21 mmol/L (22-32); Chloride 106 mmol/L (98-107); Estimated Glomerular Filt Rate 59.2 mL/min (>60); Globulin 2.7 g/dL (1.7-4.1); Glucose 143 mg/dL (80-110); HEMOLYSIS < 15 (0-50); Potassium 4.6 mmol/L (3.4-5.1); Sodium 142 mmol/L (137-145); Total Protein 6.6 g/dL (6.3-8.2)
[2018-07-19 10:20] LABS: Lactate (Lactic Acid) 1.8 mmol/L (0.7-2.1)
[2018-07-19 10:36] LABS: Procalcitonin < 0.05 ng/mL (<0.5)
[2018-07-19 10:48] VITALS: BP 114/74; PULSE 65; RESP 16; O2SAT 96
[2018-07-19 11:00] VITALS: BP 116/69; PULSE 62; O2SAT 100
[2018-07-19 12:00] VITALS: BP 137/75; PULSE 64; RESP 18; O2SAT 100
[2018-07-19 12:01] VITALS: BP 137/75; PULSE 64; RESP 18; O2SAT 100
[2018-07-19 12:03] LABS: Bacteria Urine Moderate (10-30); Culture Indicated Urine Specimen Cultured; RBC Urine 30-100/HPF (0-5/HPF); Squamous Epithelial Cell Urine 0-1 /HPF; WBC Urine 10-30/HPF (0-5/HPF)
== END 2018-07-19 12:02 | disposition home or self-care (01) ==
PROVIDERS: Emergency Provider Emergency Medicine; PCP Student in an Organized Health Care Education/Training Program
DX: R73.9 Hyperglycemia, unspecified (principal)
CPT/HCPCS: 36591; 74018; 80053; 81003; 81015; 83605; 84145; 87086; 99283

== ENCOUNTER 2018-07-21 10:05 | Emergency (ER) | payer MEDICARE, SELFPAY ==
[2018-07-21] VITALS (17 sets, daily range): BP systolic 107–162; BP diastolic 61–94; PULSE 82–97; RESP 15–25; TEMP 36.2–36.9; O2SAT 98–100; BMI 28.5
--- NOTE | 2018-07-21 10:12 | DI.RAD.S_ITS ---
PROCEDURE: XR CHEST 1V INDICATIONS: vomiting, short of breath TECHNIQUE: One view of the chest was acquired. COMPARISON: [facility], CR, XR CHEST 1V, 07/08/2018, 11:07. FINDINGS: Surgical changes and devices: None. Lungs and pleura: No pleural effusions or pneumothorax. Lungs are clear. Mediastinum: Mediastinal contours appear normal. Heart size is normal. Bones and chest wall: No suspicious bony lesions. Overlying soft tissues appear unremarkable. IMPRESSION: No acute cardiopulmonary pathology. Dictated by: Leon Stapleton M.D. on 07/21/2018 at 11:08 Approved by: Leon Stapleton M.D. on 07/21/2018 at 11:09
[2018-07-21] MEDS: ALBUTEROL 2.5 MG/3 ML NEB (ADULT) INH (10:26)
[2018-07-21 10:37] LABS: Add Manual Diff / Slide Review NO; Basophils Percent Auto 0.5 % (0-2); Eosinophils Percent Auto 0.9 % (2-4); Hematocrit 25.4 % (41-53); Hemoglobin 8.5 g/dL (13.5-17.5); INR 1.1 (0.9-1.3); Lymphocytes Percent Auto 14.7 % (25-40); Mean Corpuscular HGB Conc 33.3 % (30-36); Mean Corpuscular Hemoglobin 28.4 PG (26-34); Mean Corpuscular Volume 85.3 fL (80-100); Monocytes Percent Auto 4.5 % (3-14); Neutrophils Absolute Auto 12800 /uL (1500-7000); Neutrophils Percent Auto 79.4 % (50-75); Platelet Count 335 X10^3/uL (150-400); Prothrombin Time 12.4 SECONDS (10.1-12.7); Red Blood Cell Count 2.98 X10^6/uL (4.5-5.9); Red Cell Distribution Width 15.7 % (11.6-14.8); White Blood Cell Count 16.1 X10^3/uL (4.5-11.0)
[2018-07-21] MEDS: PANTOPRAZOLE 40 MG VIAL IV (10:39)
[2018-07-21 10:40] LABS: PTT Partial Thromboplastin Tim 26 SECONDS (26.4-36.2)
--- NOTE | 2018-07-21 10:40 | DI.CT.S_ITS ---
PROCEDURE: CT ABDOMEN PELVIS WO CON INDICATIONS: vomiting TECHNIQUE: Noncontrast 5 mm thick sections acquired from the diaphragms to the symphysis. 5 mm coronal and sagittal reformats were then performed. For radiation dose reduction, the following was used: automated exposure control, adjustment of mA and/or kV according to patient size. COMPARISON: [facility], CT, CT KIDNEY URETER BLADDER (KUB), 07/08/2018, 10:56. FINDINGS: Image quality: Excellent. ABDOMEN: Lung bases: Lung bases are clear. Heart size is normal. Solid organs: Liver is normal in size. Metallic densities are again seen in right lower quadrant and abdomen anterior to inferior portion of right hepatic lobe. Gallbladder is surgically absent. Pancreas is normal in contours. 6 mm hypodensity is noted in tail of pancreas and may represent a small cyst or IPMN. Spleen is normal in size. No adrenal nodules. Bilateral kidneys are normal in size. There is interval placement of bilateral ureteral stents. Mild prominence of bilateral renal pelvis and renal collecting system is seen. Mild prominence of bilateral proximal ureters are also noted. Distal ureters are normal in size. Peritoneum and bowel: There is a small hiatal hernia. No gross abnormal bowel wall thickening or mesenteric fat stranding. Postsurgical changes in right side of abdomen is seen with prior surgical anastomosis. Mildly fluid distended small bowel loops are noted in the dilated left upper quadrant abdomen. There is a periumbilical hernia containing multiple segment of small bowel loops with fluid distended small bowel loops entering the herniation sac and decompressed bowel loops exiting the herniation sac suggestive of focal small bowel obstruction in this area. Early incarceration is suspected. No peritoneal free fluid or free air. Nodes and vessels: No retroperitoneal or mesenteric adenopathy by size criteria. Aorta and inferior vena cava are normal in caliber. PELVIS: Genitourinary: Bladder wall thickness is normal. Miscellaneous: No inguinal hernias or adenopathy. Bones: No suspicious bony lesions. No vertebral body compression fractures. IMPRESSION: 1. Interval placement of bilateral ureteral stents with significant improvement in previously noted bilateral moderate to severe hydronephrosis. Mild to moderate residual bilateral hydronephrosis and proximal hydroureter is seen. 2. Umbilical hernia containing segments of small bowel loops with suggestion of small bowel structure at the site of ventral hernia and is concerning for early incarceration. No significant bowel wall thickening or mesenteric fat stranding is seen at this time. No free fluid or free air. Post surgical changes in right side of abdomen. 3. Small height hernia. No free fluid or free air. 4. 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 Dictated by: Leon Stapleton M.D. on 07/21/2018 at 11:34 Approved by: Leon Stapleton M.D. on 07/21/2018 at 11:49
--- NOTE | 2018-07-21 10:40 | DI.CT.S_ITS ---
PROCEDURE: CT ANGIO CHEST PE PROTOCOL INDICATIONS: short of breath TECHNIQUE: After the administration of intravenous contrast, 2 mm thick sections acquired from the pulmonary apices to the posterior costophrenic angles. 3-dimensional maximum intensity projection (MIP) coronal and sagittal reformats were then acquired through the thorax. For radiation dose reduction, the following was used: automated exposure control, adjustment of mA and/or kV according to patient size. COMPARISON: None. FINDINGS: Image quality: Excellent. Pulmonary arteries: Pulmonary arteries are normal in size, and demonstrate no intraluminal filling defects to suggest central pulmonary embolism. Lungs and pleura: Lungs are clear. No pleural effusions or pneumothorax. Central and peripheral airways are patent. Mediastinum: Heart size is normal, without pericardial effusion. No mediastinal or hilar adenopathy. Thoracic aorta is normal in caliber and enhancement. Esophagus is normal in caliber, with a small hiatal hernia. Bones and chest wall: No suspicious bony lesions. Ribs and thoracic spine appear intact throughout. Thyroid gland is within normal limits. No axillary or supraclavicular adenopathy. Abdomen: Visualized upper abdominal solid organs appear normal in the early arterial phase of enhancement. IMPRESSION: 1. No evidence of pulmonary emboli. No thoracic aortic aneurysm or gross dissection. 2. Bilateral lungs are clear. 3. No mediastinal or hilar adenopathy. Small hiatal hernia. Dictated by: Leon Stapleton M.D. on 07/21/2018 at 11:26 Approved by: Leon Stapleton M.D. on 07/21/2018 at 11:31
[2018-07-21 10:42] LABS: Alanine Aminotransferase 46 IU/L (21-72); Albumin 4.1 g/dL (3.5-5.0); Albumin Globulin Ratio 1.6 (1.0-2.8); Alkaline Phosphatase 90 U/L (38-126); Aspartate Aminotransferase 17 IU/L (17-59); BUN Creatinine Ratio 37.3 (6-22); Bilirubin Total 0.2 mg/dL (0.2-1.3); Blood Urea Nitrogen 41 mg/dL (9-20); Calcium 10.2 mg/dL (8.4-10.2); Carbon Dioxide 19 mmol/L (22-32); Chloride 103 mmol/L (98-107); Creatine Kinase 42 U/L (55-170); Estimated Glomerular Filt Rate > 60.0 mL/min (>60); Globulin 2.6 g/dL (1.7-4.1); Glucose 169 mg/dL (80-110); HEMOLYSIS < 15 (0-50); Lactate (Lactic Acid) 3.1 mmol/L (0.7-2.1); Lipase 173 U/L (23-300); Magnesium 1.4 mg/dL (1.6-2.3); Potassium 4.4 mmol/L (3.4-5.1); Sodium 140 mmol/L (137-145); Total Protein 6.7 g/dL (6.3-8.2)
--- NOTE | 2018-07-21 10:42 | ED.SOB ---
HPI - SOB/Dyspnea General Chief Complaint: Shortness of Breath/Dyspnea Stated Complaint: shortness of breath Time Seen by Provider: 07/21/18 10:11 Source: patient, EMS and old records reviewed Mode of arrival: EMS Limitations: no limitations History of Present Illness The patient is a 73-year-old male who presents with shortness of breath. It started last evening he feels like he cannot breathe. He also feels like he might be having some mild anxiety. He has no chest pain. He also started vomiting last evening he said he was vomiting black. No black stools. He has had multiple abdominal surgeries in the past. He does not feel like his abdomen is distended. He was seen evaluated here in July 08 with all large obstructive uropathy causing renal failure and a creatinine of 6.9. He was emergently transferred to the billing [facility] where he had stents placed. He was seen evaluated here on the is with hyperglycemia. At that time his renal function had normalized. He has follow-up appointment July 29 with Urology. He was restarted on metformin on the . MD Complaint: shortness of breath Related Data Home Medications Medication Instructions Recorded Confirmed Glucose: Test Strips 0 str MISCELLANEOUS QDAY 07/08/18 07/08/18 atenolol 50 mg PO DAILY 07/08/18 07/08/18 atorvastatin [Lipitor] 20 mg PO BEDTIME 07/08/18 07/08/18 clopidogrel [Plavix] 75 mg PO DAILY 07/08/18 07/08/18 doxycycline hyclate 20 mg PO DAILY 07/08/18 07/08/18 lisinopril 5 mg PO DAILY 07/08/18 07/08/18 Allergies Allergy/AdvReac Type Severity Reaction Status Date / Time No Known Drug Allergies Allergy Verified 07/19/18 09:14 Review of Systems Review of Systems All systems reviewed & are unremarkable except as noted in HPI and below Constitutional Denies chills, Reports fatigue, Denies fever(s), Denies lethargy and Denies weakness Eyes Denies change in vision, Denies eye discharge, Denies irritation and Denies loss of vision ENT Ears, Nose, Mouth, and Throat: Denies change in voice, Denies neck pain and Denies sore throat Cardiovascular Denies chest pain, Denies irregular heart rhythm, Denies lightheadedness, Denies palpitations, Reports dyspnea and Denies orthopnea Respiratory Reports as per HPI and Reports dyspnea Gastrointestinal Gastrointestinal: Reports as per HPI, Reports abdominal pain, Reports change in stool character (Black), Reports coffee ground emesis, Reports nausea and Reports vomiting Genitourinary Reports as per HPI (Recent ureteral stents placed), Denies hematuria, Denies flank pain, Denies urinary incontinence and Denies urinary urgency Musculoskeletal Denies neck pain Integumentary/Breasts Denies pruritus, Denies erythema, Denies rash and Denies wounds Neurologic Denies loss of vision and Denies weakness Endocrine Reports fatigue and Denies palpitations [facility] Medical History [id number]-Idikb disease (Acute) Diabetes mellitus treated with oral medication (Acute) Hypertension, essential (Acute) Kidney stones (Acute) Peripheral vascular disease of extremity (Acute) Sleep apnea in adult (Acute) Surgical History S/P ureteral stent placement (Acute) Status post vascular bypass (Acute) Status post colectomy Social History household members: spouse Smoking Status: Former smoker Exam Initial Vital Signs Initial Vital Signs: Vital Signs Temperature 97.8 F 07/21/18 10:05 Pulse Rate 97 H 07/21/18 10:05 Respiratory Rate 18 07/21/18 10:05 Blood Pressure 134/67 07/21/18 10:05 Pulse Oximetry 100 07/21/18 10:05 Const General: cooperative, frail appearing and ill appearing (Chronically ill) Orientation: alert, awake and oriented x3 HENMT Head: normal to inspection Mouth: other (Black ground coffee ground emesis around mouth) Eyes General: appearance normal, both eyes and all related structures Eyelids: eyelids normal Conjunctivae: conjunctivae normal Sclera: sclerae normal Pupils: PERRL EOM: EOM intact bilaterally Neck Neck: normal visual inspection and full ROM Chest Chest: normal inspection of the chest Resp Auscultation: clear to auscultation bilaterally, no crackles, no rales, no rhonchi and no wheezes Cardio Rate: regular rate Rhythm: regular rhythm Heart Sounds: S1 normal, S2 normal, no click, no gallops and no murmurs Pulses: normal peripheral pulses GI Inspection: other (Multiple abdominal scars noted) Palpation: soft, no hepatosplenomegaly, No guarding, No pulsatile mass and No tender Auscultation: normal bowel sounds Rectal Exam: heme positive stool (Black guaiac-positive) and hemorrhoids Skin General: no rashes or lesions noted, No jaundice and No petechiae Neuro General: alert, oriented x3, gait normal and no focal motor deficits Speech: speech normal Course Orders Ordered: ED Orders 07/21/18 10:12 Consult to Respiratory Therapy Evaluate & Treat XR chest 1V Stat EKG-12 Lead Stat 07/21/18 10:15 B Type Natriuretic Peptide Stat Complete Blood Count AUTO DIFF Stat Comprehensive Metabolic Panel Stat Lactate (Lactic Acid) Stat Lipase Stat Magnesium Stat Packed Cells Stat Partial Thromboplastin Time Stat Prothrombin Time INR Stat Troponin & CK Cardiac Panel Stat Type and Screen Stat 07/21/18 10:40 CT abdomen pelvis wo con Stat CT angio chest PE protocol Stat 07/21/18 14:58 Lactate 4HR (Lactic Acid Rflx) Stat Discontinued Medications Albuterol (Ventolin) 2.5 mg INH NOW ONE Stop: 07/21/18 10:13 Last Admin: 07/21/18 10:26 Dose: 2.5 mg Hydromorphone HCl (Dilaudid) 0.5 mg IV NOW ONE Stop: 07/21/18 11:16 Last Admin: 07/21/18 11:15 Dose: 0.5 mg Hydromorphone HCl (Dilaudid) 0.5 mg IV NOW ONE Stop: 07/21/18 12:32 Last Admin: 07/21/18 12:37 Dose: 0.5 mg Hydromorphone HCl (Dilaudid) 0.5 mg IV NOW ONE Stop: 07/21/18 14:52 Last Admin: 07/21/18 14:51 Dose: 0.5 mg Ondansetron HCl (Zofran) 4 mg IV NOW ONE Stop: 07/21/18 10:48 Last Admin: 07/21/18 11:14 Dose: 4 mg Pantoprazole Sodium (Protonix) 40 mg IV NOW ONE Stop: 07/21/18 10:16 Last Admin: 07/21/18 10:39 Dose: 40 mg Vital Signs - 8 hr 07/21/18 10:05 07/21/18 10:28 07/21/18 10:30 Temperature 97.8 F Pulse Rate 97 H 90 97 H Respiratory Rate 18 20 20 Blood Pressure 134/67 Blood Pressure [Left Arm] 114/73 Pulse Oximetry 100 98 98 07/21/18 10:54 07/21/18 11:00 07/21/18 11:04 Temperature Pulse Rate 93 H 95 H 92 H Respiratory Rate 20 23 18 Blood Pressure Blood Pressure [Left Arm] 133/76 114/61 107/66 Pulse Oximetry 98 07/21/18 11:08 07/21/18 11:27 07/21/18 12:00 Temperature Pulse Rate 94 H 90 88 Respiratory Rate 20 18 19 Blood Pressure Blood Pressure [Left Arm] 109/67 121/65 121/68 Pulse Oximetry 98 98 100 07/21/18 12:19 07/21/18 12:30 07/21/18 12:34 Temperature 98.5 F 97.1 F L Pulse Rate 94 H 91 H 92 H Respiratory Rate 25 H 15 19 Blood Pressure 118/66 146/66 H Blood Pressure [Left Arm] 146/66 H Pulse Oximetry 100 07/21/18 12:39 07/21/18 13:01 07/21/18 13:37 Temperature 97.5 F L 98.3 F Pulse Rate 91 H 86 82 Respiratory Rate 18 19 19 Blood Pressure 113/70 109/70 150/77 H Blood Pressure [Left Arm] Pulse Oximetry 07/21/18 13:47 07/21/18 14:21 Temperature 98.3 F Pulse Rate 83 82 Respiratory Rate 19 18 Blood Pressure 124/84 Blood Pressure [Left Arm] 162/94 H Pulse Oximetry 100 MDM - SOB/Dyspnea Medical Records Attestation: I reviewed the patient's medical records. Lab Data Attestation: I reviewed the patient's lab results. Result diagrams: 07/21/18 10:15 07/21/18 10:15 Lab Results 07/21/18 07/21/18 07/21/18 Range/Units 10:15 10:15 10:15 WBC 16.1 H (4.5-11.0) X10^3/uL RBC 2.98 L (4.5-5.9) X10^6/uL Hgb 8.5 L (13.5-17.5) g/dL Hct 25.4 L (41-53) % MCV 85.3 (80-100) fL MCH 28.4 (26-34) PG MCHC 33.3 (30-36) % RDW 15.7 H (11.6-14.8) % Plt Count 335 (150-400) X10^3/uL Neut % (Auto) 79.4 H (50-75) % Lymph % (Auto) 14.7 L (25-40) % [place]ble % (Auto) 4.5 (3-14) % Eos % (Auto) 0.9 L (2-4) % Baso % (Auto) 0.5 (0-2) % Neut # (Auto) 01026 H (2912-7456) /uL PT 12.4 (10.1-12.7) SECONDS INR 1.1 (0.9-1.3) APTT 26 L D (26.4-36.2) SECONDS Sodium 140 (137-145) mmol/L Potassium 4.4 (3.4-5.1) mmol/L Chloride 103 (98-107) mmol/L Carbon Dioxide 19 L (22-32) mmol/L BUN 41 H (9-20) mg/dL Creatinine 1.10 (0.66-1.25) mg/dL Estimated GFR > 60.0 (>60) mL/min BUN/Creatinine Ratio 37.3 H (6-22) Glucose 169 H (80-110) mg/dL Lactate (0.7-2.1) mmol/L Calcium 10.2 (8.4-10.2) mg/dL Magnesium 1.4 L (1.6-2.3) mg/dL Total Bilirubin 0.2 (0.2-1.3) mg/dL AST 17 (17-59) IU/L ALT 46 (21-72) IU/L Alkaline Phosphatase 90 (38-126) U/L Total Creatine Kinase 42 L (55-170) U/L CK-MB (CK-2) TNP CK-MB (CK-2) Rel Index TNP Troponin I < 0.012 (0.01-0.034) ng/mL B-Natriuretic Peptide < 100 (<100) Total Protein 6.7 (6.3-8.2) g/dL Albumin 4.1 (3.5-5.0) g/dL Globulin 2.6 (1.7-4.1) g/dL Albumin/Globulin Ratio 1.6 (1.0-2.8) Lipase 173 (23-300) U/L Blood Type Antibody Screen Crossmatch 07/21/18 07/21/18 07/21/18 Range/Units 10:15 10:15 14:58 WBC (4.5-11.0) X10^3/uL RBC (4.5-5.9) X10^6/uL Hgb (13.5-17.5) g/dL Hct (41-53) % MCV (80-100) fL MCH (26-34) PG MCHC (30-36) % RDW (11.6-14.8) % Plt Count (150-400) X10^3/uL Neut % (Auto) (50-75) % Lymph % (Auto) (25-40) % Trimble % (Auto) (3-14) % Eos % (Auto) (2-4) % Baso % (Auto) (0-2) % Neut # (Auto) (3587-7381) /uL PT (10.1-12.7) SECONDS INR (0.9-1.3) APTT (26.4-36.2) SECONDS Sodium (137-145) mmol/L Potassium (3.4-5.1) mmol/L Chloride (98-107) mmol/L Carbon Dioxide (22-32) mmol/L BUN (9-20) mg/dL Creatinine (0.66-1.25) mg/dL Estimated GFR (>60) mL/min BUN/Creatinine Ratio (6-22) Glucose (80-110) mg/dL Lactate 3.1 H 2.5 H (0.7-2.1) mmol/L Calcium (8.4-10.2) mg/dL Magnesium (1.6-2.3) mg/dL Total Bilirubin (0.2-1.3) mg/dL AST (17-59) IU/L ALT (21-72) IU/L Alkaline Phosphatase (38-126) U/L Total Creatine Kinase (55-170) U/L CK-MB (CK-2) CK-MB (CK-2) Rel Index Troponin I (0.01-0.034) ng/mL B-Natriuretic Peptide (<100) Total Protein (6.3-8.2) g/dL Albumin (3.5-5.0) g/dL Globulin (1.7-4.1) g/dL Albumin/Globulin Ratio (1.0-2.8) Lipase (23-300) U/L Blood Type A Positive Antibody Screen Negative Crossmatch See Detail Point of Care Testing Glucose POC 192 Imaging Data Chest x-ray: Radiologist's impression: PROCEDURE: XR CHEST 1V INDICATIONS: vomiting, short of breath TECHNIQUE: One view of the chest was acquired. COMPARISON: [facility], , XR CHEST 1V, 07/08/2018, 11:07. FINDINGS: Surgical changes and devices: None. Lungs and pleura: No pleural effusions or pneumothorax. Lungs are clear. Mediastinum: Mediastinal contours appear normal. Heart size is normal. Bones and chest wall: No suspicious bony lesions. Overlying soft tissues appear unremarkable. IMPRESSION: No acute cardiopulmonary pathology. Dictated by: Leon Stapleton M.D. on 07/21/2018 at 11:08 CT PE: Radiologist's impression: PROCEDURE: CT ANGIO CHEST PE PROTOCOL INDICATIONS: short of breath TECHNIQUE: After the administration of intravenous contrast, 2 mm thick sections acquired from the pulmonary apices to the posterior costophrenic angles. 3-dimensional maximum intensity projection (MIP) coronal and sagittal reformats were then acquired through the thorax. For radiation dose reduction, the following was used: automated exposure control, adjustment of mA and/or kV according to patient size. COMPARISON: None. FINDINGS: Image quality: Excellent. Pulmonary arteries: Pulmonary arteries are normal in size, and demonstrate no intraluminal filling defects to suggest central pulmonary embolism. Lungs and pleura: Lungs are clear. No pleural effusions or pneumothorax. Central and peripheral airways are patent. Mediastinum: Heart size is normal, without pericardial effusion. No mediastinal or hilar adenopathy. Thoracic aorta is normal in caliber and enhancement. Esophagus is normal in caliber, with a small hiatal hernia. Bones and chest wall: No suspicious bony lesions. Ribs and thoracic spine appear intact throughout. Thyroid gland is within normal limits. No axillary or supraclavicular adenopathy. Abdomen: Visualized upper abdominal solid organs appear normal in the early arterial phase of enhancement. IMPRESSION: 1. No evidence of pulmonary emboli. No thoracic aortic aneurysm or gross dissection. 2. Bilateral lungs are clear. 3. No mediastinal or hilar adenopathy. Small hiatal hernia. Dictated by: Leon Stapleton M.D. on 07/21/2018 at 11:26 CT scan - abdomen: Radiologist's impression: PROCEDURE: CT ABDOMEN PELVIS WO CON INDICATIONS: vomiting TECHNIQUE: Noncontrast 5 mm thick sections acquired from the diaphragms to the symphysis. 5 mm coronal and sagittal reformats were then performed. For radiation dose reduction, the following was used: automated exposure control, adjustment of mA and/or kV according to patient size. COMPARISON: [facility], CT, CT KIDNEY URETER BLADDER (KUB), 07/08/2018, 10:56. FINDINGS: Image quality: Excellent. ABDOMEN: Lung bases: Lung bases are clear. Heart size is normal. Solid organs: Liver is normal in size. Metallic densities are again seen in right lower quadrant and abdomen anterior to inferior portion of right hepatic lobe. Gallbladder is surgically absent. Pancreas is normal in contours. 6 mm hypodensity is noted in tail of pancreas and may represent a small cyst or IPMN. Spleen is normal in size. No adrenal nodules. Bilateral kidneys are normal in size. There is interval placement of bilateral ureteral stents. Mild prominence of bilateral renal pelvis and renal collecting system is seen. Mild prominence of bilateral proximal ureters are also noted. Distal ureters are normal in size. Peritoneum and bowel: There is a small hiatal hernia. No gross abnormal bowel wall thickening or mesenteric fat stranding. Postsurgical changes in right side of abdomen is seen with prior surgical anastomosis. Mildly fluid distended small bowel loops are noted in the dilated left upper quadrant abdomen. There is a periumbilical hernia containing multiple segment of small bowel loops with fluid distended small bowel loops entering the herniation sac and decompressed bowel loops exiting the herniation sac suggestive of focal small bowel obstruction in this area. Early incarceration is suspected. No peritoneal free fluid or free air. Nodes and vessels: No retroperitoneal or mesenteric adenopathy by size criteria. Aorta and inferior vena cava are normal in caliber. PELVIS: Genitourinary: Bladder wall thickness is normal. Miscellaneous: No inguinal hernias or adenopathy. Bones: No suspicious bony lesions. No vertebral body compression fractures. IMPRESSION: 1. Interval placement of bilateral ureteral stents with significant improvement in previously noted bilateral moderate to severe hydronephrosis. Mild to moderate residual bilateral hydronephrosis and proximal hydroureter is seen. 2. Umbilical hernia containing segments of small bowel loops with suggestion of small bowel structure at the site of ventral hernia and is concerning for early incarceration. No significant bowel wall thickening or mesenteric fat stranding is seen at this time. No free fluid or free air. Post surgical changes in right side of abdomen. 3. Small height hernia. No free fluid or free air. 4. 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 Dictated by: Leon Stapleton M.D. on 07/21/2018 at 11:34 ECG Data Attestation: I personally reviewed and interpreted this ECG as follows: Prior ECG tracings: available for review Interpretation: Sinus rhythm rate 96 RI interval [address] changes or T-wave inversions similar to previous EKG MDM Narrative Medical decision making narrative: Patient is guaiac positive. He has evidence of hematemesis around his mouth. His hemoglobin has decreased significantly in 2 days. Previous hemoglobin 11.8 today is 8.5. Previous hematocrit 36% today is 25% he has BUN of 41 and creatinine of 1.1 all consistent with upper GI bleed. He was recently put back on Plavix. Patient is hemodynamically stable no further evidence of bleeding while in the ED however due to increased lactic acid and significant drop in blood I have started blood transfusion. I have discussed with , we unfortunately do not have a GI back up at [facility] recommends patient be transferred. I spoke with Dr. Henri palencia hospitalist at [facility] who recommends consulting GI but then will happily accepts patient for admission. I spoke with Vikki, GI physician at [place] who agrees to consultation but no emergent procedure to be done. Conservative measures and monitoring at this time. Critical Care Time Critical Care Time: Yes Total Critical Care Time: 30 Attestation: The high probability of a clinically significant, sudden or life threatening deterioration of the [cardiovascular] system(s) required my full and direct attention, intervention and personal management. The aggregate critical care time was [45] minutes. This time is in addition to time spent performing reported procedures but includes the following: [x] Data Review and interpretation [x] Patient assessment and monitoring of vital signs [x] Documentation [x] Medication orders and management Discharge Plan Departure Patient Disposition: [facility] Clinical Impression: Acute GI bleeding Interventions: ED Discharge Assessment Last Done: 07/21/18 14:51 Prescriptions: No Action atenolol 25 mg tablet 50 mg PO DAILY RF: 0 doxycycline hyclate 20 mg tablet 20 mg PO DAILY RF: 0 atorvastatin [Lipitor] 20 MG tablet 20 mg PO BEDTIME RF: 0 clopidogrel [Plavix] 75 MG tablet 75 mg PO DAILY RF: 0 lisinopril 5 MG tablet 5 mg PO DAILY RF: 0 Glucose: Test Strips miscellaneous QDAY RF: 0 Referrals: Dmitry Ferguson MD [Primary Care Provider] -
[2018-07-21 10:59] LABS: B Type Natriuretic Peptide < 100 (<100); Troponin I < 0.012 ng/mL (0.01-0.034)
[2018-07-21] MEDS: ONDANSETRON 4 MG/2 ML INJ IV (11:14)
[2018-07-21] MEDS: HYDROMORPHONE 1 MG INJ 0.5 MG IV ×3 (11:15→14:51)
[2018-07-21 14:28] LABS: Reflexed Lactate in 2 Hours Y
[2018-07-21 15:07] LABS: Lactate 2HR (Lactic Acid Rflx) 2.5 mmol/L (0.7-2.1)
--- NOTE | 2018-07-21 15:20 | PC.NURSE ---
Patient's second unit of blood continued upon transfer.
--- NOTE | 2018-07-21 16:23 | PC.NURSE ---
Attempted to call JUDY Valiente at [facility] at 1510 and she was unable to take report. Gave her our phone number. Did not receive a call back. Attempted to call her at 1550. She stated the patient had arrived already and she is unable to take report at this time. Stated she will call back. Gave her ED phone number again and have not received a call back.
== END 2018-07-21 14:55 | disposition short-term general hospital (02) ==
PROVIDERS: Emergency Provider Emergency Medicine; PCP Student in an Organized Health Care Education/Training Program
DX: K92.2 Gastrointestinal hemorrhage, unspecified (principal)
CPT/HCPCS: 36415; 36430; 36591; 71045; 71275; 74176; 80053; 82550; 82962; 83605; 83690; 83735; 83880; 84484; 85025; 85610; 85730; 86850; 86900; 86901; 93005; 94640; 96374; 96375; 96376; 99285; 99291; P9016; C9113; J1170; J2405; J7613; Q9967

== ENCOUNTER → 2018-09-10 08:10 | Outpatient (CLI) | payer MEDICARE, SELFPAY ==
[2018-09-10 08:30] LABS: Hematocrit 35.1 % (41-53); Hemoglobin 11.2 g/dL (13.5-17.5); Mean Corpuscular HGB Conc 31.9 % (30-36); Mean Corpuscular Hemoglobin 25.6 PG (26-34); Mean Corpuscular Volume 80.1 fL (80-100); Platelet Count 260 X10^3/uL (150-400); Red Blood Cell Count 4.38 X10^6/uL (4.5-5.9); Red Cell Distribution Width 14.9 % (11.6-14.8); White Blood Cell Count 7.7 X10^3/uL (4.5-11.0)
[2018-09-10 08:43] LABS: Hemoglobin A1C% w Est Avg Glu 6.2 % (4.0-6.0)
[2018-09-10 08:55] LABS: BUN Creatinine Ratio 22.2 (6-22); Blood Urea Nitrogen 20 mg/dL (9-20); Calcium 9.5 mg/dL (8.4-10.2); Carbon Dioxide 24 mmol/L (22-32); Chloride 103 mmol/L (98-107); Cholesterol 126 mg/dL (140-199); Estimated Glomerular Filt Rate > 60.0 mL/min (>60); Glucose 149 mg/dL (80-110); HDL Cholesterol 39 mg/dL (40-60); HEMOLYSIS < 15 (0-50); LDL Cholesterol Calculated 30 mg/dL (<100); Potassium 4.4 mmol/L (3.4-5.1); Sodium 139 mmol/L (137-145); Triglycerides 283 mg/dL (35-150)
[2018-09-10 09:49] LABS: Vitamin D 25 Hydroxy (D3) 37.7 ng/mL (30.0-100.0)
== END ==
PROVIDERS: PCP Student in an Organized Health Care Education/Training Program; Visit Provider Student in an Organized Health Care Education/Training Program
DX: E11.9 Type 2 diabetes mellitus without complications (principal); E55.9 Vitamin D deficiency, unspecified; E78.2 Mixed hyperlipidemia; I10 Essential (primary) hypertension; K92.2 Gastrointestinal hemorrhage, unspecified
CPT/HCPCS: 36415; 80048; 80061; 82306; 83036; 85027

== ENCOUNTER → 2019-04-21 16:02 | Outpatient (CLI) | payer MEDICARE, SELFPAY ==
[2019-04-21 17:35] LABS: Creatinine Urine Random 60.4 mg/dL; Microalbumi Creatinin Ratio Ur 82.7 ug/mg CR (<30)
== END ==
PROVIDERS: PCP Student in an Organized Health Care Education/Training Program; Visit Provider Student in an Organized Health Care Education/Training Program
DX: E11.9 Type 2 diabetes mellitus without complications (principal)
CPT/HCPCS: 36415; 82043; 82570; 83036

== ENCOUNTER → 2019-08-18 13:46 | Outpatient (CLI) | payer MEDICARE, SELFPAY ==
[2019-08-18 14:27] LABS: Add Manual Diff / Slide Review NO; Basophils Absolute Auto 100 /uL (0-100); Basophils Percent Auto 0.6 % (0-2); Eosinophils Absolute Auto 200 /uL (0-450); Eosinophils Percent Auto 1.9 % (2-4); Hematocrit 41.6 % (41-53); Hemoglobin 14.2 g/dL (13.5-17.5); Lymphocytes Absolute Auto 1900 /uL (1100-4500); Lymphocytes Percent Auto 23.3 % (25-40); Mean Corpuscular HGB Conc 34.3 % (30-36); Mean Corpuscular Hemoglobin 31.1 PG (26-34); Mean Corpuscular Volume 90.8 fL (80-100); Monocytes Absolute Auto 600 /uL (0-900); Monocytes Percent Auto 7.3 % (3-14); Neutrophils Absolute Auto 5600 /uL (1500-7000); Neutrophils Percent Auto 66.9 % (50-75); Platelet Count 212 X10^3/uL (150-400); Red Blood Cell Count 4.58 X10^6/uL (4.5-5.9); Red Cell Distribution Width 13.5 % (11.6-14.8); White Blood Cell Count 8.4 X10^3/uL (4.5-11.0)
[2019-08-18 14:37] LABS: HEMOLYSIS < 15 (0-50); Iron 95 ug/dL (49-181)
[2019-08-18 14:39] LABS: Alanine Aminotransferase 31 IU/L (<50); Albumin Globulin Ratio 1.7 (1.0-2.8); Alkaline Phosphatase 70 U/L (38-126); Aspartate Aminotransferase 24 IU/L (17-59); Bilirubin Total 0.4 mg/dL (0.2-1.3); Blood Urea Nitrogen 27 mg/dL (9-20); Calcium 10.2 mg/dL (8.4-10.2); Carbon Dioxide 23 mmol/L (22-32); Chloride 104 mmol/L (98-107); Estimated Glomerular Filt Rate > 60.0 mL/min (>60); Glucose 128 mg/dL (80-110); HEMOLYSIS < 15 (0-50); Sodium 140 mmol/L (137-145)
[2019-08-18 14:47] LABS: Erythrocyte Sedimentation Rate 13 MM/HR (0-15)
[2019-08-18 14:48] LABS: Lipase 2029 U/L (23-300); Percent Iron Saturation 28 % (20-50); Total Iron Binding Capacity 341 ug/dL (261-462); Transferrin 284 mg/dL (206-381)
[2019-08-18 15:09] LABS: TSH w/ Reflex to FT4 3.71 uIU/mL (0.47-4.68)
[2019-08-18 15:28] LABS: Vitamin B12 254 pg/mL (239-931)
[2019-08-18 16:30] LABS: Creatinine Urine Random 51.3 mg/dL
[2019-08-18 16:35] LABS: Microalbumi Creatinin Ratio Ur 109.1 ug/mg CR (<30); Microalbumin Urine Random 5.6 mg/dL (0-1.6)
[2019-08-19 09:08] LABS: C-Reactive Protein Quant 0.5 mg/dL (<1.0)
[2019-08-19 09:15] LABS: Hemoglobin A1C% w Est Avg Glu 6.2 % (4.0-6.0)
== END ==
PROVIDERS: PCP Student in an Organized Health Care Education/Training Program; Visit Provider Student in an Organized Health Care Education/Training Program
DX: E11.9 Type 2 diabetes mellitus without complications (principal); R80.9 Proteinuria, unspecified; I10 Essential (primary) hypertension; R19.5 Other fecal abnormalities; R53.83 Other fatigue; R68.89 Other general symptoms and signs; Z86.2 Personal history of diseases of the blood and blood-forming organs and certain disorders involving the immune mechanism; K85.90 Acute pancreatitis without necrosis or infection, unspecified
CPT/HCPCS: 36415; 80053; 82043; 82570; 82607; 83036; 83540; 83550; 83690; 84443; 85025; 85651; 86140

== ENCOUNTER → 2019-08-20 07:59 | Outpatient (CLI) | payer MEDICARE, SELFPAY ==
--- NOTE | 2019-08-20 08:00 | DI.CT.S_ITS ---
PROCEDURE: CT ABDOMEN PELVIS W CON INDICATIONS: Atypical presentation of pancreatitis TECHNIQUE: After the administration of intravenous contrast, 5 mm thick sections acquired from the diaphragm to the symphysis. 5 mm coronal and sagittal reformats were acquired. For radiation dose reduction, the following was used: automated exposure control, adjustment of mA and/or kV according to patient size. COMPARISON: [facility], CT, CHEST ABDOMEN PELVIS WITH CONTRAST, 02/17/2009, 13:23. [facility], CT, ABDOMEN/PELVIS WITH CONTRAST, 02/09/2013, 21:55. [facility], CT, CT ABDOMEN PELVIS WO CON, 07/21/2018, 10:48. [facility], CT, CT ANGIO CHEST PE PROTOCOL, 07/21/2018, 10:48. [facility], CT, ABDOMEN/PELVIS WITH CONTRAST, 08/22/2014, 15:30. FINDINGS: Image quality: Excellent. ABDOMEN: Lung bases: Streaky opacities in the left base. Heart size is normal. Solid organs: Liver is normal in size and enhancement. Gallbladder is unremarkable. Biliary system is non dilated. Pancreas demonstrates focus of low attenuation within the pancreatic tail, unchanged since 2008. There is no peripancreatic inflammatory change. Spleen is normal in size and enhancement. No adrenal nodules. Kidneys demonstrate normal size and enhancement, without hydronephrosis. Nonobstructing right renal calculus is present, less prominent when compared to prior exam. Peritoneum and bowel: Bowel loops demonstrate normal wall thickness and caliber. No free fluid or air. Colonic diverticula are present without associated inflammatory change. Nodes and vessels: No retroperitoneal or mesenteric adenopathy by size criteria. Aorta and inferior vena cava are normal in size. Miscellaneous: Ventral hernia containing bowel loops is present. PELVIS: Genitourinary: Bladder is diffusely thick and and incompletely distended. Prostate gland is markedly enlarged. Miscellaneous: Bilateral fat-containing inguinal hernias are present. Bones: No suspicious bony lesions. No vertebral body compression fractures. IMPRESSION: 1. Streaky opacities within the left base suggestive of atelectasis versus developing pneumonia. 2. Nonobstructing right renal calculus. 3. No inflammatory change of the pancreas. 4. Diverticulosis. Dictated by: Yasmeen Saini M.D. on 08/20/2019 at 11:48 Approved by: Yasmeen Saini M.D. on 08/20/2019 at 12:01
== END ==
PROVIDERS: PCP Student in an Organized Health Care Education/Training Program; Visit Provider Student in an Organized Health Care Education/Training Program
DX: K85.90 Acute pancreatitis without necrosis or infection, unspecified (principal); N20.0 Calculus of kidney; N40.0 Benign prostatic hyperplasia without lower urinary tract symptoms; K57.90 Diverticulosis of intestine, part unspecified, without perforation or abscess without bleeding
CPT/HCPCS: 74177; Q9967

== ENCOUNTER → 2019-08-21 10:41 | Outpatient (CLI) | payer MEDICARE, SELFPAY ==
[2019-08-21 11:58] LABS: Gamma Glutamyl Transpeptidase 28 U/L (15-73)
[2019-08-21 12:54] LABS: Hep C Virus Ab w/Reflex Quant NEGATIVE s/c (NEGATIVE)
[2019-08-25 08:18] LABS: ANA Pattern MITOTIC, NUMA-LIKE; ANA Screen, IFA POSITIVE (NEGATIVE)
== END ==
PROVIDERS: PCP Student in an Organized Health Care Education/Training Program; Visit Provider Student in an Organized Health Care Education/Training Program
DX: K52.9 Noninfective gastroenteritis and colitis, unspecified (principal); R10.9 Unspecified abdominal pain; R74.8 Abnormal levels of other serum enzymes
CPT/HCPCS: 36415; 82977; 83516; 86038; 86803

== ENCOUNTER → 2020-08-14 08:13 | Outpatient (CLI) | payer MEDICARE, SELFPAY ==
[2020-08-14 10:11] LABS: Hemoglobin A1C% w Est Avg Glu 6.7 % (4.0-6.0)
[2020-08-14 10:44] LABS: BUN Creatinine Ratio 25.6 (6-22); Blood Urea Nitrogen 22 mg/dL (9-20); Calcium 9.8 mg/dL (8.4-10.2); Carbon Dioxide 25 mmol/L (22-32); Chloride 102 mmol/L (98-107); Estimated Glomerular Filt Rate > 60.0 mL/min (>60); Glucose 129 mg/dL (80-110); HEMOLYSIS < 15 (0-50); Potassium 4.9 mmol/L (3.4-5.1); Sodium 135 mmol/L (137-145)
[2020-08-14 12:01] LABS: Creatinine Urine Random 80.6 mg/dL
[2020-08-14 12:38] LABS: Microalbumi Creatinin Ratio Ur 363.5 ug/mg CR (<30); Microalbumin Urine Random 29.3 mg/dL (0-1.6)
== END ==
PROVIDERS: PCP Student in an Organized Health Care Education/Training Program; Referring Provider Student in an Organized Health Care Education/Training Program; Visit Provider Student in an Organized Health Care Education/Training Program
DX: E11.9 Type 2 diabetes mellitus without complications (principal)
CPT/HCPCS: 36415; 80048; 82043; 82570; 83036

== ENCOUNTER 2020-10-26 10:31 | Emergency (ER) | payer MEDICARE, SELFPAY ==
[2020-10-26 10:38] VITALS: BP 183/103; PULSE 81; RESP 15; TEMP 37.1; O2SAT 98; BMI 29.0
--- NOTE | 2020-10-26 10:45 | ED_ITS ---
HPI - General Adult General Chief complaint: Urogenital-Male Stated complaint: dehydrated, lethargic, decreased mobility Time Seen by Provider: 10/26/20 10:37 Source: patient Mode of arrival: other Limitations: no limitations History of Present Illness HPI narrative: Patient is a 75-year-old male who is here for which he thinks is dehydration. He states that he has not been vomiting. He has been tolerating some oral intake. Has had some occasional diarrhea over the past couple days although he has been dehydrated in the past and this feels similar to him. He also states that last night he was up several times trying to urinate but was only getting a small amount out. He is never had an issue with his prostate in the past. He is not having any burning. No fevers. 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 Related Data Previous Rx's Medication Instructions Recorded doxycycline hyclate 20 mg tablet 20 mg PO DAILY #30 tab 09/16/18 atenolol 50 mg tablet 50 mg PO DAILY #90 tab 03/22/20 atorvastatin 20 mg tablet 20 mg PO BEDTIME #90 tab 04/14/20 clopidogrel 75 mg tablet 75 mg PO DAILY #90 tab 04/14/20 metformin 1,000 mg tablet 1,000 mg PO BID #180 tab 04/14/20 colchicine 0.6 mg tablet 0.6 mg PO DAILY #6 tab 05/03/20 albuterol sulfate 90 mcg/actuation 1 puff INHALATION Q6H PRN #8.5 gram 07/31/20 aerosol inhaler lisinopril 5 mg tablet 5 mg PO DAILY #90 tab 07/31/20 Allergies Allergy/AdvReac Type Severity Reaction Status Date / Time No Known Drug Allergies Allergy Verified 10/26/20 10:44 Review of Systems Constitutional Constitutional: Reports fatigue and Denies fever(s) Cardiovascular Cardiovascular: Denies chest pain and Denies dyspnea Respiratory Respiratory: Denies dyspnea Gastrointestinal Gastrointestinal: Denies abdominal pain, Denies change in bowel habits, Denies constipation, Reports diarrhea, Denies nausea and Denies vomiting Genitourinary Genitourinary: Denies dysuria, Reports urinary frequency, Denies urinary incontinence and Reports urinary urgency Genitourinary: Reports urinary frequency, Denies dysuria, Denies urinary incontinence and Reports urinary urgency Musculoskeletal Musculoskeletal: Denies myalgias Integumentary/Breasts Skin/Breast: Denies lesions and Denies rash Neurologic Neurologic: Denies behavioral changes Psychiatric Psychiatric: Denies behavioral changes Endocrine Endocrine: Reports fatigue Hematologic/Lymphatic On Anticoagulants: No Allergic/Immunologic Allergic/Immunologic: Denies urticaria Patient History Medical History Talkdci-Fmtvy-Uless disease Colon cancer Diabetes mellitus treated with oral medication Hypertension, essential Kidney stones Mixed hyperlipidemia Peripheral vascular disease of extremity Sleep apnea in adult Surgical History (Updated 09/15/18 @ 22:49 by Abi Lundberg) S/P ureteral stent placement Status post colectomy (~1995) Status post vascular bypass Family History (Updated 09/15/18 @ 22:51 by Abi Lundberg) Father Ulcer History of blood clots Social History marital status: household members: spouse lives independently: Yes occupational status: other (retired) Smoking Status: Former smoker alcohol intake: never substance use type: does not use Smoking Status: Former smoker alcohol intake frequency: 0-2 drinks per day Substance Use Type: does not use Exam Initial Vital Signs Initial Vital Signs: Vital Signs Temperature 98.7 F 10/26/20 10:38 Pulse Rate 81 10/26/20 10:38 Respiratory Rate 15 10/26/20 10:38 Blood Pressure 183/103 H 10/26/20 10:38 Pulse Oximetry 98 10/26/20 10:38 Const General: cooperative and comfortable Limitations: mental status not altered HENMT Head: normal to inspection and normocephalic Resp Effort & Inspection: normal respiratory effort Auscultation: clear to auscultation bilaterally Cardio Rate: regular rate Rhythm: regular rhythm GI Inspection: non-distended Palpation: soft and No firm Skin Lesions: no lesions Rashes: no rashes Neuro General: patient alert, patient awake and patient oriented x3 Cognition: normal cognition Speech: speech normal Extrem General: normal to inspection and capillary refill normal Psych Appearance: grossly normal and well kempt Course Orders Ordered: ED Orders 10/26/20 11:06 Basic Metabolic Panel Stat Complete Blood Count AUTO DIFF Stat Discontinued Medications Sodium Chloride (Normal Saline 0.9%) 1,000 mls @ 1,000 mls/hr IV BOLUS ONE Stop: 10/26/20 11:53 Last Infusion: 10/26/20 12:10 Dose: 0 mls/hr Documented by: Admin: 10/26/20 11:12 Dose: 1,000 mls/hr Documented by: ALEX Vital Signs Vital signs: Vital Signs - 8 hr 10/26/20 10:38 Temperature 98.7 F Pulse Rate 81 Respiratory Rate 15 Blood Pressure 183/103 H Pulse Oximetry 98 Medical Decision Making Lab Data Lab results reviewed: Yes I reviewed the patient's lab results. Result diagrams: 10/26/20 11:06 10/26/20 11:06 Labs: Lab Results 10/26/20 10/26/20 Range/Units 11:06 11:06 WBC 8.9 (4.5-11.0) X10^3/uL RBC 4.61 (4.5-5.9) X10^6/uL Hgb 14.3 (13.5-17.5) g/dL Hct 42.9 (41-53) % MCV 92.9 (80-100) fL MCH 31.1 (26-34) PG MCHC 33.4 (30-36) % RDW 13.7 (11.6-14.8) % Plt Count 217 (150-400) X10^3/uL Neut % (Auto) 72.7 (50-75) % Lymph % (Auto) 17.4 L (25-40) % [place] % (Auto) 7.4 (3-14) % Eos % (Auto) 2.1 (2-4) % Baso % (Auto) 0.4 (0-2) % Neut # (Auto) 6400 (2929-3925) /uL Lymph # (Auto) 1500 (8635-8511) /uL [place] # (Auto) 700 (0-900) /uL Eos # (Auto) 200 (0-450) /uL Baso # (Auto) 0 (0-100) /uL Sodium 134 L (137-145) mmol/L Potassium 4.9 (3.4-5.1) mmol/L Chloride 101 (98-107) mmol/L Carbon Dioxide 25 (22-32) mmol/L BUN 25 H (9-20) mg/dL Creatinine 0.87 (0.66-1.25) mg/dL Estimated GFR > 60.0 (>60) mL/min BUN/Creatinine Ratio 28.7 H (6-22) Glucose 135 H (80-110) mg/dL Calcium 10.2 (8.4-10.2) mg/dL Urine Dip Bedside Urine Glucose Negative Bedside Urine Bilirubin - Negative Bedside Urine Ketone - Negative Urine Specific [place] 1.02 Bedside Urine Occult Blood + Bedside Urine pH 6.0 Bedside Urine Protein - Negative Bedside Urine Urobilinogen - Negative Bedside Urine Nitrite - Negative Bedside Urine Leukocytes - Negative Esterase Point of care testing: Urine Dip Bedside Urine Glucose Negative Bedside Urine Bilirubin - Negative Bedside Urine Ketone - Negative Urine Specific [place] 1.02 Bedside Urine Occult Blood + Bedside Urine pH 6.0 Bedside Urine Protein - Negative Bedside Urine Urobilinogen - Negative Bedside Urine Nitrite - Negative Bedside Urine Leukocytes - Negative Esterase MDM Narrative Medical decision making narrative: He does have blood in his urine however I have low suspicion for kidney stone based on his presentation. He was informed that he needed to talk with his primary doctor has a follow-up because of this. He did feel better after IV fluids. No indication for antibiotics. No indication for further workup here in the ER. He was given return precautions and follow-up instructions. He expressed understanding and agreement. Discharge Plan Departure Patient Disposition: Home Clinical Impression: Hematuria Instructions: DI for Hematuria Activity Restrictions/Additional Instructions: Continue all of your medications as directed. Be sure to increase your fluid intake. Contact your primary provider for follow-up to discuss the blood that was found in your urine today. Return to the emergency department for any new or worsening symptoms Prescriptions: No Action atenolol 50 mg tablet 50 mg PO DAILY Qty: 90 RF: 3 colchicine 0.6 mg tablet 0.6 mg PO DAILY Qty: 6 RF: 11 ProAir HFA 90 mcg/actuation HFA aerosol inhaler 1 puff INHALATION Q6H PRN (Reason: shortness of breath or wheezing) Qty: 8.5 RF: 11 lisinopril 5 mg tablet 5 mg PO DAILY Qty: 90 RF: 2 doxycycline hyclate 20 mg tablet 20 mg PO DAILY Qty: 30 RF: 7 metformin 1,000 mg tablet 1,000 mg PO BID Qty: 180 RF: 1 atorvastatin [Lipitor] 20 mg tablet 20 mg PO BEDTIME Qty: 90 RF: 1 clopidogrel [Plavix] 75 mg tablet 75 mg PO DAILY Qty: 90 RF: 1 Referrals: Dmitry Ferguson MD [Primary Care Provider] -
[2020-10-26] MEDS: SODIUM CHLORIDE 0.9% 1,000 ML 1000 ML IV (11:12)
[2020-10-26 11:23] LABS: Add Manual Diff / Slide Review NO; Basophils Absolute Auto 0 /uL (0-100); Basophils Percent Auto 0.4 % (0-2); Eosinophils Absolute Auto 200 /uL (0-450); Eosinophils Percent Auto 2.1 % (2-4); Hematocrit 42.9 % (41-53); Hemoglobin 14.3 g/dL (13.5-17.5); Lymphocytes Absolute Auto 1500 /uL (1100-4500); Lymphocytes Percent Auto 17.4 % (25-40); Mean Corpuscular HGB Conc 33.4 % (30-36); Mean Corpuscular Hemoglobin 31.1 PG (26-34); Mean Corpuscular Volume 92.9 fL (80-100); Monocytes Absolute Auto 700 /uL (0-900); Monocytes Percent Auto 7.4 % (3-14); Neutrophils Absolute Auto 6400 /uL (1500-7000); Neutrophils Percent Auto 72.7 % (50-75); Platelet Count 217 X10^3/uL (150-400); Red Blood Cell Count 4.61 X10^6/uL (4.5-5.9); Red Cell Distribution Width 13.7 % (11.6-14.8); White Blood Cell Count 8.9 X10^3/uL (4.5-11.0)
[2020-10-26 11:24] LABS: HEMOLYSIS < 15 (0-50); Potassium 4.9 mmol/L (3.4-5.1)
[2020-10-26 11:25] LABS: BUN Creatinine Ratio 28.7 (6-22); Blood Urea Nitrogen 25 mg/dL (9-20); Calcium 10.2 mg/dL (8.4-10.2); Carbon Dioxide 25 mmol/L (22-32); Chloride 101 mmol/L (98-107); Estimated Glomerular Filt Rate > 60.0 mL/min (>60); Glucose 135 mg/dL (80-110); Sodium 134 mmol/L (137-145)
[2020-10-26 12:58] VITALS: BP 120/70; PULSE 78; O2SAT 98
== END 2020-10-26 12:58 | disposition home or self-care (01) ==
PROVIDERS: Emergency Provider Emergency Medicine; PCP Student in an Organized Health Care Education/Training Program
DX: R31.9 Hematuria, unspecified (principal)
CPT/HCPCS: 36415; 51798; 80048; 81003; 85025; 96360; 99284

== ENCOUNTER → 2021-03-22 10:29 | Outpatient (CLI) | payer MEDICARE, SELFPAY ==
[2021-03-22 11:38] LABS: Hemoglobin A1C% w Est Avg Glu 5.8 % (4.0-6.0)
[2021-03-22 12:18] LABS: Blood Urea Nitrogen 22 mg/dL (9-20); Estimated Glomerular Filt Rate > 60.0 mL/min (>60)
== END ==
PROVIDERS: PCP Student in an Organized Health Care Education/Training Program; Referring Provider Student in an Organized Health Care Education/Training Program; Visit Provider Student in an Organized Health Care Education/Training Program
DX: E11.9 Type 2 diabetes mellitus without complications (principal)
CPT/HCPCS: 36415; 82565; 83036; 84520

== ENCOUNTER 2021-10-15 23:39 | Inpatient (IN) | payer MEDICARE, SELFPAY ==
[2021-10-15 23:40] VITALS: BP 153/73; PULSE 81; RESP 18; TEMP 36.7; O2SAT 97; BMI 29.0
--- NOTE | 2021-10-15 23:48 | ED_ITS ---
HPI - Male Genitourinary General Chief complaint: Urogenital-Male Stated complaint: left kidney pain Time Seen by Provider: 10/15/21 23:41 History of Present Illness HPI Narrative: 76-year-old male former smoker with history of iron deficiency anemia, colon cancer, type 2 diabetes, Charcot Yolande tooth and prior kidney stone presents with his with a chief complaint of a relatively sudden onset left flank pain this started a few hours ago. He states that seems to be worse when he moves or lays down but improves when he is still or standing up. He denies any obvious radiation of his discomfort and states that it is achy and were sharp in nature. He has nausea but denies any vomiting. He denies any fever chills. He has no chest pain or shortness of breath. He denies any change in bowel movements or difficulty with urination. Related Data Previous Rx's Medication Instructions Recorded atenolol 50 mg tablet 50 mg PO DAILY #90 tab 05/31/21 clopidogrel 75 mg tablet (Plavix) 75 mg PO DAILY #90 tab 05/31/21 lisinopril 5 mg tablet 5 mg PO DAILY #90 tab 05/31/21 metformin 1,000 mg tablet 1,000 mg PO BID #180 tab 05/31/21 ropinirole 4 mg tablet 4 mg PO BEDTIME #90 tab 06/14/21 atorvastatin 20 mg tablet (Lipitor) 20 mg PO BEDTIME #90 tab 07/30/21 albuterol sulfate 90 mcg/actuation 1 puff INHALATION Q6H PRN #8.5 gram 08/30/21 aerosol inhaler (ProAir HFA) Allergies Allergy/AdvReac Type Severity Reaction Status Date / Time No Known Drug Allergies Allergy Verified 04/23/21 09:27 Review of Systems Review of Systems Narrative: GENERAL: Denies chills, fatigue, malaise, fever, sweats. HEENT: Denies sinus pain, ear pain, sore throat, difficulty swallowing, d izziness. RESPIRATORY: Denies dyspnea, cough, wheezing, hemoptysis, sputum. CARDIOVASCULAR: Denies chest pain, palpitations, orthopnea, edema, GASTROINTESTINAL: See HPI : See HPI MUSCULOSKELETAL: denies weakness, joint pain, or bony pain SKIN: Denies rash, skin lesions, or other NEUROLOGIC: Denies weakness, headache, numbness, change in speech, confusion, seizures, incoordination. PSYCHIATRIC: No concerning psychosocial issues. 12 point review of systems is negative except for those stated above Patient History Medical History Mhkyvjl-Pidbg-Kesda disease Colon cancer Diabetes mellitus treated with oral medication Hypertension, essential Kidney stones Mixed hyperlipidemia Peripheral vascular disease of extremity Sleep apnea in adult Surgical History S/P ureteral stent placement Status post colectomy (~1995) Status post vascular bypass Family History Father Ulcer History of blood clots Mother No known problems Social History marital status: household members: spouse lives independently: Yes occupational status: other (retired) Smoking Status: Former smoker alcohol intake: never substance use type: does not use Smoking Status: Former smoker alcohol intake frequency: 0-2 drinks per day Substance Use Type: does not use Exam Narrative Exam Narrative: GENERAL: [76 year old patient appears stated age. Well-developed patient, in mild distress. HEAD: Atraumatic. Normocephalic. EYES: Pupils equal round and reactive. Extraocular motions intact. No scleral icterus. No injection or drainage. ENT: Nose without bleeding, purulent drainage. Throat without erythema, tonsillar hypertrophy or exudate. Airway patent. NECK: Trachea midline. Non tender CARDIOVASCULAR: Regular rate and rhythm without murmurs, gallops, or rubs. RESPIRATORY: Clear to auscultation. Breath sounds equal bilaterally. No wheezes, rales, or rhonchi. GASTROINTESTINAL: Abdomen soft, non-tender, nondistended. EXTREMITIES: No edema or joint tenderness. BACK: Nontender without deformity or crepitance. Mild left CVA tenderness on left, no obvious swelling, some Q emphysema, erythema or rash NEURO: AOx3. SKIN: No rash or erythema of visible areas Initial Vital Signs Initial Vital Signs: Vital Signs Temperature 98.1 F 10/15/21 23:40 Pulse Rate 81 10/15/21 23:40 Respiratory Rate 18 10/15/21 23:40 Blood Pressure 153/73 H 10/15/21 23:40 Pulse Oximetry 97 10/15/21 23:40 Course Orders Ordered: Acetaminophen (Acetaminophen 325 Mg Tablet) 975 mg PO Q8H PRN PRN Reason: Pain, Mild (1-3) Albuterol (Albuterol 2.5 Mg/3 Ml Neb (Adult)) 2.5 mg INH Q6H PRN PRN Reason: shortness of breath or wheezing Dextrose (Dextrose 50 % In Water 25 Gm/50 Ml Syringe) 25 gm IV PRN PRN PRN Reason: Hypoglycemia Lactated Ringer's (Lactated Ringers) 1,000 mls @ 75 mls/hr IV CONT MARICARMEN Insulin Human Lispro (Insulin Lispro 100 Unit/Ml 3ml Vial) 0 unit SUBCUT ACHS MARICARMEN; Protocol Lisinopril (Lisinopril 5 Mg Tablet) 5 mg PO DAILY MARICARMEN Oxycodone HCl (Oxycodone Ir 5 Mg Tablet) 5 mg PO Q4HR PRN PRN Reason: Pain, Moderate (4-6) Discontinued Medications Acetaminophen (Acetaminophen 325 Mg Tablet) 975 mg PO PACUNOW ONE Stop: 10/16/21 17:42 Last Admin: 10/16/21 19:07 Dose: Not Given Documented by: CMCFARL Albuterol (Albuterol 2.5 Mg/3 Ml Neb (Adult)) 2.5 mg INH NOW PRN PRN Reason: Coughing, Wheezing, Dyspnea Atenolol (Atenolol 50 Mg Tablet) 50 mg PO DAILY [facility] Last Admin: 10/16/21 10:26 Dose: Not Given Documented by: CMCFARL Atorvastatin Calcium (Atorvastatin 20 Mg Tablet) 20 mg PO BEDTIME [facility] Cefazolin Sodium/Dextrose (Cefazolin 2 Gm/20 Ml Syringe) 2 gm IV NOW ONE Stop: 10/16/21 14:11 Last Admin: 10/16/21 17:25 Dose: 2 gm Documented by: VINCE Clopidogrel Bisulfate (Clopidogrel 75 Mg Tablet) 75 mg PO DAILY [facility] Last Admin: 10/16/21 10:27 Dose: Not Given Documented by: CMCFARL Dextrose (Dextrose 50 % In Water 25 Gm/50 Ml Syringe) 25 gm IV PRN PRN PRN Reason: Hypoglycemia Diazepam (Diazepam 10 Mg/2 Ml Syringe) 5 mg IV Q6HR PRN PRN Reason: restless legs Last Admin: 10/16/21 11:13 Dose: 5 mg Documented by: JEREMY Hydromorphone HCl (Hydromorphone 0.5 Mg Inj) 0.5 mg IV NOW ONE Stop: 10/15/21 23:50 Last Admin: 10/16/21 00:06 Dose: 0.5 mg Documented by: CARLITO Hydromorphone HCl (Hydromorphone 0.5 Mg Inj) 0.5 mg IV NOW ONE Stop: 10/16/21 00:55 Last Admin: 10/16/21 00:58 Dose: 0.5 mg Documented by: LEXI Hydromorphone HCl (Hydromorphone 0.5 Mg Inj) 0.5 mg IV Q4H PRN PRN Reason: Breakthrough pain only (8-10) Last Admin: 10/16/21 12:24 Dose: 0.5 mg Documented by: JEREMY Hydromorphone HCl (Hydromorphone 2 Mg Inj) 0 mg IV Q5MIN PRN PRN Reason: Pain, Severe (7-10) Sodium Chloride (Normal Saline 0.9%) 1,000 mls @ 1,000 mls/hr IV BOLUS ONE Stop: 10/16/21 02:29 Last Infusion: 10/16/21 03:45 Dose: 0 mls/hr Documented by: Admin: 10/16/21 01:47 Dose: 1,000 mls/hr Documented by: EHSAN Sodium Chloride (Normal Saline 0.9%) 500 mls @ 1,000 mls/hr IV BOLUS ONE Stop: 10/16/21 05:06 Last Infusion: 10/16/21 09:38 Dose: 0 mls/hr Documented by: Admin: 10/16/21 04:42 Dose: 1,000 mls/hr Documented by: CARLITO Ceftriaxone Sodium 1,000 mg/ (Sodium Chloride) 100 mls @ 200 mls/hr IV NOW ONE Stop: 10/16/21 06:01 Last Infusion: 10/16/21 16:19 Dose: 0 mls/hr Documented by: Admin: 10/16/21 10:59 Dose: 200 mls/hr Documented by: JEREMY Lactated Ringer's (Lactated Ringers) 1,000 mls @ 100 mls/hr IV CONT MARICARMEN Last Admin: 10/16/21 15:56 Dose: 100 mls/hr Documented by: Infusion: 10/16/21 15:56 Dose: 0 mls/hr Documented by: Infusion: 10/16/21 14:10 Dose: 0 mls/hr Documented by: Admin: 10/16/21 09:54 Dose: 100 mls/hr Documented by: MARYBEL Magnesium Sulfate (Magnesium Sulfate) 2 gm in 50 mls @ 25 mls/hr IV NOW ONE Stop: 10/16/21 13:27 Last Infusion: 10/16/21 16:19 Dose: 0 mls/hr Documented by: MARYBEL Cosigned by: JEREMY Admin: 10/16/21 12:24 Dose: 25 mls/hr Documented by: JEREMY Cosigned by: MARYBEL Lactated Ringer's (Lactated Ringers) 1,000 mls @ 1,000 mls/hr IV BOLUS ONE Stop: 10/16/21 15:08 Last Admin: 10/16/21 14:13 Dose: 1,000 mls/hr Documented by: LUIS Lactated Ringer's (Lactated Ringers) 500 mls @ 25 mls/hr IV CONT MARICARMEN Last Admin: 10/16/21 19:06 Dose: Not Given Documented by: MARYBEL Insulin Human Lispro (Insulin Lispro 100 Unit/Ml 3ml Vial) 0 unit SUBCUT ACHS [facility]; Protocol Last Admin: 10/16/21 17:26 Dose: Not Given Documented by: Admin: 10/16/21 12:38 Dose: Not Given Documented by: Admin: 10/16/21 10:16 Dose: Not Given Documented by: JEREMY Ketorolac Tromethamine (Ketorolac 30 Mg/Ml Vial) 10 mg IV NOW ONE Stop: 10/16/21 01:31 Last Admin: 10/16/21 01:46 Dose: 10 mg Documented by: EHSAN Lidocaine HCl (Lidocaine 2% (Glydo) 6 Ml Gel) 6 ml TOP NOW ONE Stop: 10/16/21 02:48 Last Admin: 10/16/21 03:45 Dose: Not Given Documented by: CARLITO Metformin HCl (Metformin Hcl 500 Mg Tablet) 1,000 mg PO BID [facility] Naloxone HCl (Naloxone 0.4 Mg/Ml Vial) 0.2 mg IV Q2MIN PRN PRN Reason: Opiate Reversal Ondansetron HCl (Ondansetron 4 Mg/2 Ml Inj) 4 mg IV NOW PRN PRN Reason: Nausea And Vomiting Ropinirole HCl (Ropinirole 4 Mg Tablet) 4 mg PO BEDTIME MARICARMEN Sodium Chloride (Sodium Chloride 0.9% Flush) 10 ml IV PRN PRN PRN Reason: Flush Sodium Chloride (Sodium Chloride 0.9% Flush) 10 ml IV BID MARICARMEN Tamsulosin HCl (Tamsulosin 0.4 Mg Capsule) 0.4 mg PO NOW ONE Stop: 10/16/21 01:31 Last Admin: 10/16/21 01:45 Dose: 0.4 mg Documented by: EHSAN Consultations Consultation #1: Discussed with Urology, recommends keeping patient NPO, admitting to hospitalist, officially consulting him for likely stent at the end of the surgical day Vital Signs Vital signs: Vital Signs - 8 hr 10/15/21 23:40 10/16/21 04:52 Temperature 98.1 F Pulse Rate 81 75 Respiratory Rate 18 15 Blood Pressure 153/73 H 139/70 Pulse Oximetry 97 95 MDM - Male Genitourinary Lab Data Result diagrams: 10/16/21 07:40 10/16/21 07:40 Labs: Lab Results 10/15/21 10/15/21 10/16/21 Range/Units 23:59 23:59 03:06 WBC 9.2 (4.5-11.0) X10^3/uL RBC 4.30 L (4.5-5.9) X10^6/uL Hgb 13.4 L (13.5-17.5) g/dL Hct 39.5 L (41-53) % MCV 91.8 (80-100) fL MCH 31.2 (26-34) PG MCHC 34.0 (30-36) % RDW 14.2 (11.6-14.8) % Plt Count 157 (150-400) X10^3/uL Neut % (Auto) 81.3 H (50-75) % Lymph % (Auto) 11.6 L (25-40) % [place] % (Auto) 6.0 (3-14) % Eos % (Auto) 0.9 L (2-4) % Baso % (Auto) 0.2 (0-2) % Neut # (Auto) 7500 H (5223-8665) /uL Lymph # (Auto) 1100 (2574-6988) /uL [place] # (Auto) 600 (0-900) /uL Eos # (Auto) 100 (0-450) /uL Baso # (Auto) 0 (0-100) /uL Sodium 138 140 (137-145) mmol/L Potassium 5.5 H 5.0 (3.4-5.1) mmol/L Chloride 108 H 111 H (98-107) mmol/L Carbon Dioxide 19 L 21 L (22-32) mmol/L BUN 26 H 26 H (9-20) mg/dL Creatinine 1.41 H 1.45 H (0.66-1.25) mg/dL Estimated GFR 48.7 L 47.2 L (>60) mL/min BUN/Creatinine Ratio 18.4 17.9 (6-22) Glucose 173 H 130 H (80-110) mg/dL Calcium 9.2 8.4 (8.4-10.2) mg/dL Total Bilirubin 0.5 (0.2-1.3) mg/dL AST 25 (17-59) IU/L ALT 30 (<50) IU/L Alkaline Phosphatase 64 (38-126) U/L Total Protein 7.5 (6.3-8.2) g/dL Albumin 4.6 (3.5-5.0) g/dL Globulin 2.9 (1.7-4.1) g/dL Albumin/Globulin Ratio 1.6 (1.0-2.8) Urine Color Urine Appearance Urine pH (4.5-8.0) Ur Specific [place] (1.000-1.035) Urine Protein (Negative) Urine Glucose (UA) (Negative) g/dL Urine Ketones (NEGATIVE) Urine Occult Blood (Negative) Urine Nitrate (Negative) Urine Bilirubin (NEGATIVE) Urine Urobilinogen (0.2) E.U./dL Ur Leukocyte Esterase (NEGATIVE) Urine RBC (0-5/HPF) Urine WBC (0-5/HPF) Ur Squamous Epith Cells (0-5/HPF) Urine Bacteria (None) Ur Culture Indicated? Ur Random Sodium (30-90) mmol/L Urine Creatinine mg/dL 10/16/21 10/16/21 10/16/21 Range/Units 04:30 04:30 05:43 WBC (4.5-11.0) X10^3/uL RBC (4.5-5.9) X10^6/uL Hgb (13.5-17.5) g/dL Hct (41-53) % MCV (80-100) fL MCH (26-34) PG MCHC (30-36) % RDW (11.6-14.8) % Plt Count (150-400) X10^3/uL Neut % (Auto) (50-75) % Lymph % (Auto) (25-40) % [place] % (Auto) (3-14) % Eos % (Auto) (2-4) % Baso % (Auto) (0-2) % Neut # (Auto) (9947-5899) /uL Lymph # (Auto) (1574-5708) /uL [place] # (Auto) (0-900) /uL Eos # (Auto) (0-450) /uL Baso # (Auto) (0-100) /uL Sodium (137-145) mmol/L Potassium (3.4-5.1) mmol/L Chloride (98-107) mmol/L Carbon Dioxide (22-32) mmol/L BUN (9-20) mg/dL Creatinine 1.44 H (0.66-1.25) mg/dL Estimated GFR 47.6 L (>60) mL/min BUN/Creatinine Ratio (6-22) Glucose (80-110) mg/dL Calcium (8.4-10.2) mg/dL Total Bilirubin (0.2-1.3) mg/dL AST (17-59) IU/L ALT (<50) IU/L Alkaline Phosphatase (38-126) U/L Total Protein (6.3-8.2) g/dL Albumin (3.5-5.0) g/dL Globulin (1.7-4.1) g/dL Albumin/Globulin Ratio (1.0-2.8) Urine Color Yellow Urine Appearance Sl cloudy Urine pH 5.0 (4.5-8.0) Ur Specific [place] 1.020 (1.000-1.035) Urine Protein 2+ H (Negative) Urine Glucose (UA) Negative (Negative) g/dL Urine Ketones Negative (NEGATIVE) Urine Occult Blood 3+ H (Negative) Urine Nitrate Negative (Negative) Urine Bilirubin Negative (NEGATIVE) Urine Urobilinogen 0.2 (0.2) E.U./dL Ur Leukocyte Esterase 1+ H (NEGATIVE) Urine RBC 30-100/hpf H (0-5/HPF) Urine WBC 1-5/hpf (0-5/HPF) Ur Squamous Epith Cells 0-1 /hpf (0-5/HPF) Urine Bacteria Occasional (0-1) D (None) Ur Culture Indicated? Specimen cultured Ur Random Sodium 63 (30-90) mmol/L Urine Creatinine 86.3 mg/dL Imaging Data CT scan - abdomen/pelvis: Radiologist's Impression: [address] [address] [address] Scan Report Signed Patient: Shantanu Underwood MR#: [id number] : 1945 Acct:[id number] Age/Sex: 76 / M Date of Service: 10/15/21 Loc: ED Accession Number: [id number] ?? Procedure: CT kidney ureter bladder (KUB) Ordering Provider: Barrington Sepulveda D.O. PROCEDURE:? CT KIDNEY URETER BLADDER (KUB) ? INDICATIONS:? severe Left flank pain ? TECHNIQUE:? Axial sections were acquired from the lung bases to the pubic symphysis.? Coronal and sagittal reformats were performed.? For radiation dose reduction, the following was used: ?automated exposure control, adjustment of mA and/or kV according to patient size.? ? COMPARISON:? [facility], CT, CT KIDNEY URETER BLADDER (KUB), 07/08/2018, 10:56. ? FINDINGS:? Image quality:? Excellent.? ? Lung bases:? There is scarring redemonstrated within the lung bases, left greater than right, with elevation of the left hemidiaphragm again noted.? ? Heart:? Heart is normal in size. ? URINARY: Right Kidney:? There are few scattered nonobstructing stones within the right kidney, with the largest measuring up to approximately 0.6 cm. Right Ureter:? No hydroureter.? ? Left Kidney:? There is moderate left hydronephrosis with extensive perinephric stranding. ?There is a left renal stone measuring up to 0.6 cm.? Left Ureter:? There are a few obstructing clustered urinary stones in the distal left ureter extending to the ureterovesicular junction.? There is associated periureteral fat stranding.? ? Bladder:? The bladder is partially distended.? No calcified bladder stones.? There is prominent enlargement of the prostate. ? ABDOMEN: Liver:? Unremarkable.? ? Gallbladder:? Unremarkable.? ? Biliary ducts:? Unremarkable.? ? Pancreas:? Unremarkable.? ? Spleen:? Unremarkable.? ? Adrenal Glands:? Unremarkable.? ? ? Stomach and Bowel:? Stomach, small bowel loops, and colon are unremarkable.? Peritoneum:? No abnormal intraperitoneal fluid.? No free air.? ? Ventral Wall: ? No hernia.? Abdominal Nodes:? No enlarged retroperitoneal or mesenteric lymph nodes.? Vessels:? Aorta and inferior vena cava are normal in size.? ? PELVIS: Pelvic Organs:? Unremarkable.? ? Pelvic Nodes: Unremarkable. Miscellaneous: No inguinal hernias are seen. ? ? ? Bones:? Unremarkable. ? IMPRESSION:? ? 1. Clustered obstructing urinary stones in the distal left ureter with mild left hydroureteronephrosis.? Extensive left perinephric stranding also demonstrated. ? 2. Additional bilateral nonobstructing renal stones. ? 3. Colonic diverticulosis.? ? ? Dictated by: Douglas Croft M.D. on 10/16/2021 at 0:55 ? ? Approved by: Douglas Croft M.D. on 10/16/2021 at 1:00 ? MDM Narrative Medical decision making narrative: Patient presents with relatively sudden onset left flank pain consistent with prior kidney stones. Imaging notes stones at the left UVJ with associated h ydro. Mild suspicion of infection based on urine along with stranding on imaging would suggest antibiotics are indicated. Patient given fluids and kidney function recheck twice without any significant improvement. For this reason patient is hospitalized with antibiotics, fluids and urologic consult Discharge Plan Departure Patient Disposition: Admitted as Observation Clinical Impression: Acute unilateral obstructive uropathy Admit Date/Time: 10/16/21 06:43 Admit Provider: Abi Morillo
--- NOTE | 2021-10-15 23:49 | DI.CT.S_ITS ---
PROCEDURE: CT KIDNEY URETER BLADDER (KUB) INDICATIONS: severe Left flank pain TECHNIQUE: Axial sections were acquired from the lung bases to the pubic symphysis. Coronal and sagittal reformats were performed. For radiation dose reduction, the following was used: automated exposure control, adjustment of mA and/or kV according to patient size. COMPARISON: [facility], CT, CT KIDNEY URETER BLADDER (KUB), 07/08/2018, 10:56. FINDINGS: Image quality: Excellent. Lung bases: There is scarring redemonstrated within the lung bases, left greater than right, with elevation of the left hemidiaphragm again noted. Heart: Heart is normal in size. URINARY: Right Kidney: There are few scattered nonobstructing stones within the right kidney, with the largest measuring up to approximately 0.6 cm. Right Ureter: No hydroureter. Left Kidney: There is moderate left hydronephrosis with extensive perinephric stranding. There is a left renal stone measuring up to 0.6 cm. Left Ureter: There are a few obstructing clustered urinary stones in the distal left ureter extending to the ureterovesicular junction. There is associated periureteral fat stranding. Bladder: The bladder is partially distended. No calcified bladder stones. There is prominent enlargement of the prostate. ABDOMEN: Liver: Unremarkable. Gallbladder: Unremarkable. Biliary ducts: Unremarkable. Pancreas: Unremarkable. Spleen: Unremarkable. Adrenal Glands: Unremarkable. Stomach and Bowel: Stomach, small bowel loops, and colon are unremarkable. Peritoneum: No abnormal intraperitoneal fluid. No free air. Ventral Wall: No hernia. Abdominal Nodes: No enlarged retroperitoneal or mesenteric lymph nodes. Vessels: Aorta and inferior vena cava are normal in size. PELVIS: Pelvic Organs: Unremarkable. Pelvic Nodes: Unremarkable. Miscellaneous: No inguinal hernias are seen. Bones: Unremarkable. IMPRESSION: 1. Clustered obstructing urinary stones in the distal left ureter with mild left hydroureteronephrosis. Extensive left perinephric stranding also demonstrated. 2. Additional bilateral nonobstructing renal stones. 3. Colonic diverticulosis. Dictated by: Douglas Croft M.D. on 10/16/2021 at 0:55 Approved by: Douglas Croft M.D. on 10/16/2021 at 1:00
[2021-10-16] VITALS (21 sets, daily range): BP systolic 76–145; BP diastolic 43–82; PULSE 69–100; RESP 12–20; TEMP 35.9–36.6; O2SAT 90–98; BMI 29.0; BMI 29.2
--- NOTE | 2021-10-16 | DI.RAD.S_ITS ---
PROCEDURE: XR KUB INDICATIONS: Left ureteral calculi TECHNIQUE: One view of the abdomen acquired. COMPARISON: [facility], CR, XR KUB, 07/19/2018, 9:35. FINDINGS: Surgical changes and devices: Surgical clips are seen in right abdomen. Bowel: Bowel gas pattern is nonobstructive. Fecal stasis throughout the colon is seen extending to rectum. No gross pneumoperitoneum. Soft tissues: No suspicious abdominal calcifications. Visualized solid organ contours appear normal in size. Bones: No suspicious bony lesions. IMPRESSION: No definite renal calculus is seen. Mild constipation. No gross free air. Dictated by: Leon Stapleton M.D. on 10/16/2021 at 14:52 Approved by: Leon Stapleton M.D. on 10/16/2021 at 14:54
--- NOTE | 2021-10-16 | DI.RAD.S_ITS ---
PROCEDURE: XR ABDOMEN 1V INDICATIONS: CYSTO LEFT STENT PLACEMENT TECHNIQUE: One fluoroscopic image of the abdomen acquired. COMPARISON: [facility], CR, XR KUB, 10/16/2021, 14:13. FINDINGS: Surgical changes and devices: Partially imaged left ureteral stent. Bowel: Nonspecific bowel gas pattern. IMPRESSION: Partially imaged left ureteral stent Dictated by: Danny Lassiter M.D. on 10/16/2021 at 18:37 Approved by: Danny Lassiter M.D. on 10/16/2021 at 18:38
[2021-10-16] MEDS: HYDROMORPHONE 0.5 MG INJ IV ×3 (00:06→12:24)
[2021-10-16 00:23] LABS: Alanine Aminotransferase 30 IU/L (<50); Albumin 4.6 g/dL (3.5-5.0); Albumin Globulin Ratio 1.6 (1.0-2.8); Alkaline Phosphatase 64 U/L (38-126); Aspartate Aminotransferase 25 IU/L (17-59); BUN Creatinine Ratio 18.4 (6-22); Bilirubin Total 0.5 mg/dL (0.2-1.3); Blood Urea Nitrogen 26 mg/dL (9-20); Calcium 9.2 mg/dL (8.4-10.2); Carbon Dioxide 19 mmol/L (22-32); Chloride 108 mmol/L (98-107); Estimated Glomerular Filt Rate 48.7 mL/min (>60); Globulin 2.9 g/dL (1.7-4.1); Glucose 173 mg/dL (80-110); HEMOLYSIS 31 (0-50); Sodium 138 mmol/L (137-145); Total Protein 7.5 g/dL (6.3-8.2)
[2021-10-16 00:26] LABS: Add Manual Diff / Slide Review NO; Basophils Absolute Auto 0 /uL (0-100); Basophils Percent Auto 0.2 % (0-2); Eosinophils Absolute Auto 100 /uL (0-450); Eosinophils Percent Auto 0.9 % (2-4); Hematocrit 39.5 % (41-53); Hemoglobin 13.4 g/dL (13.5-17.5); Lymphocytes Absolute Auto 1100 /uL (1100-4500); Lymphocytes Percent Auto 11.6 % (25-40); Mean Corpuscular Hemoglobin 31.2 PG (26-34); Mean Corpuscular Volume 91.8 fL (80-100); Monocytes Absolute Auto 600 /uL (0-900); Neutrophils Absolute Auto 7500 /uL (1500-7000); Neutrophils Percent Auto 81.3 % (50-75); Platelet Count 157 X10^3/uL (150-400); Red Cell Distribution Width 14.2 % (11.6-14.8); White Blood Cell Count 9.2 X10^3/uL (4.5-11.0)
[2021-10-16 00:27] LABS: Potassium 5.5 mmol/L (3.4-5.1)
[2021-10-16] MEDS: TAMSULOSIN 0.4 MG CAPSULE PO (01:45)
[2021-10-16] MEDS: KETOROLAC 30 MG/ML VIAL 10 MG IV (01:46)
[2021-10-16] MEDS: SODIUM CHLORIDE 0.9% 1,000 ML 1000 ML IV (01:47)
[2021-10-16 03:33] LABS: BUN Creatinine Ratio 17.9 (6-22); Blood Urea Nitrogen 26 mg/dL (9-20); Calcium 8.4 mg/dL (8.4-10.2); Carbon Dioxide 21 mmol/L (22-32); Chloride 111 mmol/L (98-107); Estimated Glomerular Filt Rate 47.2 mL/min (>60); Glucose 130 mg/dL (80-110); HEMOLYSIS < 15 (0-50); Sodium 140 mmol/L (137-145)
[2021-10-16 04:40] LABS: Appearance Urine UA SL CLOUDY; Bilirubin Urine UA NEGATIVE (NEGATIVE); Color Urine UA YELLOW; Glucose Urine UA NEGATIVE (Negative); Ketones Urine UA NEGATIVE (NEGATIVE); Leukocyte Esterase Urine UA 1+ (NEGATIVE); Nitrite Urine UA NEGATIVE (Negative); Occult Blood Urine UA 3+ (Negative); Protein Urine UA 2+ (Negative); Urobilinogen Urine UA 0.2 E.U./dL (0.2)
[2021-10-16] MEDS: SODIUM CHLORIDE 0.9% 500 ML 1000 ML IV (04:42)
[2021-10-16 04:51] LABS: Bacteria Urine Occasional (0-1); RBC Urine 30-100/HPF (0-5/HPF); Squamous Epithelial Cell Urine 0-1 /HPF (0-5/HPF); WBC Urine 1-5/HPF (0-5/HPF)
[2021-10-16 04:52] LABS: Culture Indicated Urine Specimen Cultured
[2021-10-16 05:13] LABS: Creatinine Urine Random 86.3 mg/dL; Sodium Urine Random 63 mmol/L (30-90)
[2021-10-16 06:01] LABS: Estimated Glomerular Filt Rate 47.6 mL/min (>60)
[2021-10-16 07:57] LABS: Add Manual Diff / Slide Review NO; Basophils Absolute Auto 0 /uL (0-100); Basophils Percent Auto 0.3 % (0-2); Eosinophils Absolute Auto 100 /uL (0-450); Eosinophils Percent Auto 1.4 % (2-4); Hematocrit 37.9 % (41-53); Hemoglobin 12.4 g/dL (13.5-17.5); Lymphocytes Absolute Auto 1100 /uL (1100-4500); Lymphocytes Percent Auto 21.4 % (25-40); Mean Corpuscular HGB Conc 32.8 % (30-36); Mean Corpuscular Hemoglobin 30.8 PG (26-34); Monocytes Absolute Auto 400 /uL (0-900); Monocytes Percent Auto 7.4 % (3-14); Neutrophils Absolute Auto 3700 /uL (1500-7000); Neutrophils Percent Auto 69.5 % (50-75); Platelet Count 127 X10^3/uL (150-400); Red Blood Cell Count 4.03 X10^6/uL (4.5-5.9); Red Cell Distribution Width 14.5 % (11.6-14.8); White Blood Cell Count 5.3 X10^3/uL (4.5-11.0)
[2021-10-16 08:05] LABS: Hemoglobin A1C% w Est Avg Glu 6.4 % (4.0-6.0)
[2021-10-16 08:12] LABS: BUN Creatinine Ratio 17.6 (6-22); Blood Urea Nitrogen 26 mg/dL (9-20); Calcium 8.3 mg/dL (8.4-10.2); Carbon Dioxide 19 mmol/L (22-32); Chloride 112 mmol/L (98-107); Estimated Glomerular Filt Rate 46.1 mL/min (>60); Glucose 114 mg/dL (80-110); HEMOLYSIS < 15 (0-50); Magnesium 1.5 mg/dL (1.6-2.3); Sodium 139 mmol/L (137-145)
[2021-10-16 08:31] LABS: Alanine Aminotransferase 25 IU/L (<50); Albumin 3.9 g/dL (3.5-5.0); Albumin Globulin Ratio 1.7 (1.0-2.8); Alkaline Phosphatase 56 U/L (38-126); Aspartate Aminotransferase 20 IU/L (17-59); Bilirubin Total 0.3 mg/dL (0.2-1.3); Bilirubin Unconjugated 0.3 mg/dL (0.0-1.1); Globulin 2.3 g/dL (1.7-4.1); HEMOLYSIS < 15 (0-50); Total Protein 6.2 g/dL (6.3-8.2)
[2021-10-16 08:39] LABS: COVID19 -Nasal RAPID Negative (Negative)
[2021-10-16] MEDS: LACTATED RINGERS 1,000 ML 100 ML IV ×2 (09:54→15:56)
--- NOTE | 2021-10-16 10:55 | P.HP_ITS ---
History of Present Illness History of Present Illness Date Patient Seen: 10/16/21 Time Patient Seen: 10:56 Chief complaint: left kidney pain Narrative: This is a 76-year-old male with the past medical history of Oqoynev-Ibkpl-Fjplv, restless leg syndrome, colon cancer, type 2 diabetes, hypertension, and obstructive nephrolithiasis in the past who presented with an abrupt onset of sharp and crampy left lower quadrant and flank pain starting late yesterday evening. He denies any radiation into his groin or his back, and he rates the pain is severe initially and is worse with movement but improves with staying still. He reports this is similar to his prior episodes of obstructive nephrolithiasis. He did feel nauseous with onset of symptoms but denied any vomiting. He denies any fever but felt chills yesterday also when in pain. He denies any chest pain or shortness of breath. He denies any dysuria or urinary frequency, diarrhea, or constipation. He has had no lower extremity edema or rash. In the emergency room, the patient's vital signs were unremarkable, initial laboratory evaluation showed a mild thrombocytopenia and mild anemia but no le ukocytosis. Chemistries revealed a mildly increased creatinine at 1.48 from a usual baseline of 0.8. Magnesium was low at 1.5. A1c shows adequate control with 6.4%. Carbon dioxide was slightly low at 19 with a normal anion gap, and his potassium was initially high but improved with fluid administration. CT scan of his abdomen showed a nonobstructive left nephrolithiasis. Urology was consulted and requested admission to medicine with urology consult for probable stent placement. Urinalysis showed 30-100 rbc's, 1-5 wbc's with minimal squamous cells and occasional bacteria, and the specimen was sent for culture. COVID-19 testing was negative. Patient History Medical History Xcwcfdj-Duhdu-Lfhry disease Colon cancer Diabetes mellitus treated with oral medication Hypertension, essential Kidney stones Mixed hyperlipidemia Peripheral vascular disease of extremity Sleep apnea in adult Surgical History S/P ureteral stent placement Status post colectomy (~1995) Status post vascular bypass Family & Social History Family History (Updated 10/16/21 @ 16:06 by Tang Albarran DO) Father Ulcer History of blood clots Mother No known problems Social History: household members spouse lives independently Yes Safety & Behavioral: Feels Safe in Current Yes Environment Tobacco & Substance use: Smoking Status Former smoker alcohol intake never alcohol intake frequency 0-2 drinks per day Substance Use Type does not use Meds Home Medications and Allergies Home Medications Medication Instructions Recorded Confirmed Type atenolol 50 mg tablet 50 mg PO DAILY #90 tab 05/31/21 10/16/21 Rx clopidogrel 75 mg tablet (Plavix) 75 mg PO DAILY #90 tab 05/31/21 10/16/21 Rx lisinopril 5 mg tablet 5 mg PO DAILY #90 tab 05/31/21 10/16/21 Rx metformin 1,000 mg tablet 1,000 mg PO BID #180 tab 05/31/21 10/16/21 Rx ropinirole 4 mg tablet 4 mg PO BEDTIME #90 tab 06/14/21 10/16/21 Rx atorvastatin 20 mg tablet (Lipitor) 20 mg PO BEDTIME #90 tab 07/30/21 10/16/21 Rx albuterol sulfate 90 mcg/actuation 1 puff INHALATION Q6H PRN #8.5 gram 08/30/21 10/16/21 Rx aerosol inhaler (ProAir HFA) Allergies Allergy/AdvReac Type Severity Reaction Status Date / Time No Known Drug Allergies Allergy Verified 04/23/21 09:27 Review of Systems Review of Systems Narrative: All other systems reviewed with the patient and are negative unless otherwise stated. Exam Vital Signs (past 8 hours): - 10/16/21 04:52 10/16/21 10:05 Temperature 97.0 F L Pulse Rate 75 74 Respiratory Rate 15 20 Blood Pressure 139/70 125/80 Pulse Oximetry 95 98 Oxygen Delivery Method Room Air Narrative Exam Narrative: General:? Patient is well developed and well nourished, in no distress at this time. HEENT:? Normocephalic, atraumatic, extraocular muscles intact, oral pharynx is clear and mucous membranes are moist. Neck: supple and symmetric, trachea is midline, no cervical adenopathy. Negative for JVD Chest:? Normal AP diameter and contour without kyphoscoliosis, no tachypnea, equal chest rise bilaterally. Lungs:? CTA b/l no wheezing rhonchi or rales. Cardio:?RRR no m/r/g. Abdomen: S NT ND. No CVA tenderness. Musculoskeletal:? Muscle strength and tone are equal within normal limits, no deformity. Extremities: No edema or joint effusions. No cyanosis or clubbing. Skin:? Pale,? Warm to touch,dry and intact without rashes, ulcerations or petechiae.? Neuro:? Alert and orientated x3,? sensation to touch intact in all extremities, no gross deficits noted of cranial nerves. Psych:? Patient has a well-kept appearance, appropriate affect, mental status a ttitude thought context and judgment are appropriate for age. Objective Imaging CT scan - abdomen: Radiologist's impression: PROCEDURE:? CT KIDNEY URETER BLADDER (KUB) ? INDICATIONS:? severe Left flank pain ? TECHNIQUE:? Axial sections were acquired from the lung bases to the pubic symphysis.? Coronal and sagittal reformats were performed.? For radiation dose reduction, the following was used: ?automated exposure control, adjustment of mA and/or kV according to patient size.? ? COMPARISON:? [facility], CT, CT KIDNEY URETER BLADDER (KUB), 07/08/2018, 10:56. ? FINDINGS:? Image quality:? Excellent.? ? Lung bases:? There is scarring redemonstrated within the lung bases, left greater than right, with elevation of the left hemidiaphragm again noted.? ? Heart:? Heart is normal in size. ? URINARY: Right Kidney:? There are few scattered nonobstructing stones within the right kidney, with the largest measuring up to approximately 0.6 cm. Right Ureter:? No hydroureter.? ? Left Kidney:? There is moderate left hydronephrosis with extensive perinephric stranding. ?There is a left renal stone measuring up to 0.6 cm.? Left Ureter:? There are a few obstructing clustered urinary stones in the distal left ureter extending to the ureterovesicular junction.? There is associated periureteral fat stranding.? ? Bladder:? The bladder is partially distended.? No calcified bladder stones.? There is prominent enlargement of the prostate. ? ABDOMEN: Liver:? Unremarkable.? ? Gallbladder:? Unremarkable.? ? Biliary ducts:? Unremarkable.? ? Pancreas:? Unremarkable.? ? Spleen:? Unremarkable.? ? Adrenal Glands:? Unremarkable.? ? ? Stomach and Bowel:? Stomach, small bowel loops, and colon are unremarkable.? Peritoneum:? No abnormal intraperitoneal fluid.? No free air.? ? Ventral Wall: ? No hernia.? Abdominal Nodes:? No enlarged retroperitoneal or mesenteric lymph nodes.? Vessels:? Aorta and inferior vena cava are normal in size.? ? PELVIS: Pelvic Organs:? Unremarkable.? ? Pelvic Nodes: Unremarkable. Miscellaneous: No inguinal hernias are seen. ? ? ? Bones:? Unremarkable. ? IMPRESSION:? ? 1. Clustered obstructing urinary stones in the distal left ureter with mild left hydroureteronephrosis.? Extensive left perinephric stranding also demonstrated. ? 2. Additional bilateral nonobstructing renal stones. ? 3. Colonic diverticulosis.? Labs Result Diagrams: 10/16/21 07:40 10/16/21 07:40 Labs: Laboratory Results - last 24 hr 10/15/21 10/15/21 10/16/21 23:59 23:59 03:06 WBC 9.2 RBC 4.30 L Hgb 13.4 L Hct 39.5 L MCV 91.8 MCH 31.2 MCHC 34.0 RDW 14.2 Plt Count 157 Neut % (Auto) 81.3 H Lymph % (Auto) 11.6 L [place] % (Auto) 6.0 Eos % (Auto) 0.9 L Baso % (Auto) 0.2 Neut # (Auto) 7500 H Lymph # (Auto) 1100 [place] # (Auto) 600 Eos # (Auto) 100 Baso # (Auto) 0 Sodium 138 140 Potassium 5.5 H 5.0 Chloride 108 H 111 H Carbon Dioxide 19 L 21 L BUN 26 H 26 H Creatinine 1.41 H 1.45 H Estimated GFR 48.7 L 47.2 L BUN/Creatinine Ratio 18.4 17.9 Glucose 173 H 130 H Hemoglobin A1c Calcium 9.2 8.4 Magnesium Total Bilirubin 0.5 Conjugated Bilirubin Unconjugated Bilirubin AST 25 ALT 30 Alkaline Phosphatase 64 Total Protein 7.5 Albumin 4.6 Globulin 2.9 Albumin/Globulin Ratio 1.6 Urine Color Urine Appearance Urine pH Ur Specific [place] Urine Protein Urine Glucose (UA) Urine Ketones Urine Occult Blood Urine Nitrate Urine Bilirubin Urine Urobilinogen Ur Leukocyte Esterase Urine RBC Urine WBC Ur Squamous Epith Cells Urine Bacteria Ur Culture Indicated? Ur Random Sodium Urine Creatinine SARS-CoV-2 (PCR) 10/16/21 10/16/2110/16/22 04:30 04:30 05:43 WBC RBC Hgb Hct MCV MCH MCHC RDW Plt Count Neut % (Auto) Lymph % (Auto) [place] % (Auto) Eos % (Auto) Baso % (Auto) Neut # (Auto) Lymph # (Auto) [place] # (Auto) Eos # (Auto) Baso # (Auto) Sodium Potassium Chloride Carbon Dioxide BUN Creatinine 1.44 H Estimated GFR 47.6 L BUN/Creatinine Ratio Glucose Hemoglobin A1c Calcium Magnesium Total Bilirubin Conjugated Bilirubin Unconjugated Bilirubin AST ALT Alkaline Phosphatase Total Protein Albumin Globulin Albumin/Globulin Ratio Urine Color Yellow Urine Appearance Sl cloudy Urine pH 5.0 Ur Specific [place] 1.020 Urine Protein 2+ H Urine Glucose (UA) Negative Urine Ketones Negative Urine Occult Blood 3+ H Urine Nitrate Negative Urine Bilirubin Negative Urine Urobilinogen 0.2 Ur Leukocyte Esterase 1+ H Urine RBC 30-100/hpf H Urine WBC 1-5/hpf Ur Squamous Epith Cells 0-1 /hpf Urine Bacteria Occasional (0-1) D Ur Culture Indicated? Specimen cultured Ur Random Sodium 63 Urine Creatinine 86.3 SARS-CoV-2 (PCR) 10/16/21 10/16/21 10/16/21 07:40 07:40 07:40 WBC 5.3 RBC 4.03 L Hgb 12.4 L Hct 37.9 L MCV 94.0 MCH 30.8 MCHC 32.8 RDW 14.5 Plt Count 127 L Neut % (Auto) 69.5 Lymph % (Auto) 21.4 L [place] % (Auto) 7.4 Eos % (Auto) 1.4 L Baso % (Auto) 0.3 Neut # (Auto) 3700 Lymph # (Auto) 1100 [place] # (Auto) 400 Eos # (Auto) 100 Baso # (Auto) 0 Sodium Potassium Chloride Carbon Dioxide BUN Creatinine Estimated GFR BUN/Creatinine Ratio Glucose Hemoglobin A1c 6.4 H Calcium Magnesium Total Bilirubin 0.3 Conjugated Bilirubin 0.0 Unconjugated Bilirubin 0.3 AST 20 ALT 25 Alkaline Phosphatase 56 Total Protein 6.2 L Albumin 3.9 Globulin 2.3 Albumin/Globulin Ratio 1.7 Urine Color Urine Appearance Urine pH Ur Specific [place] Urine Protein Urine Glucose (UA) Urine Ketones Urine Occult Blood Urine Nitrate Urine Bilirubin Urine Urobilinogen Ur Leukocyte Esterase Urine RBC Urine WBC Ur Squamous Epith Cells Urine Bacteria Ur Culture Indicated? Ur Random Sodium Urine Creatinine SARS-CoV-2 (PCR) 10/16/21 10/16/21 07:40 08:21 WBC RBC Hgb Hct MCV MCH MCHC RDW Plt Count Neut % (Auto) Lymph % (Auto) [place] % (Auto) Eos % (Auto) Baso % (Auto) Neut # (Auto) Lymph # (Auto) [place] # (Auto) Eos # (Auto) Baso # (Auto) Sodium 139 Potassium 5.0 Chloride 112 H Carbon Dioxide 19 L BUN 26 H Creatinine 1.48 H Estimated GFR 46.1 L BUN/Creatinine Ratio 17.6 Glucose 114 H Hemoglobin A1c Calcium 8.3 L Magnesium 1.5 L Total Bilirubin Conjugated Bilirubin Unconjugated Bilirubin AST ALT Alkaline Phosphatase Total Protein Albumin Globulin Albumin/Globulin Ratio Urine Color Urine Appearance Urine pH Ur Specific [place] Urine Protein Urine Glucose (UA) Urine Ketones Urine Occult Blood Urine Nitrate Urine Bilirubin Urine Urobilinogen Ur Leukocyte Esterase Urine RBC Urine WBC Ur Squamous Epith Cells Urine Bacteria Ur Culture Indicated? Ur Random Sodium Urine Creatinine SARS-CoV-2 (PCR) Negative Assessment & Plan Assessment & Plan narrative: This is a 76-year-old male with the past medical history of Jwkrzau-Eobjl-Rfwmq, restless leg syndrome, colon cancer, type 2 diabetes, hypertension, and obstructive nephrolithiasis in the past admitted with a left obstructive uropathy. 1. bilateral nephrolithiasis with L obstructive disease and CALIXTO, acute, present on admission - urinalysis shows some hematuria with minimal WBC, follow up urine culture sent today - given ceftriaxone in the ER, continue IV fluids - creatinine stable around 1.4 today, baseline is near 0.8. - Urology consulted in the ER, plan for operative interventions today. 2. Uwerjaa-Orovg-Zoejc disease - continue riponrole for RLS when able to take PO. try valium for now. 3. Type 2 diabetes, well controlled - sliding scale ordered. 4. Essential hypertension - hold home medications in setting of CALIXTO and obstruction, as well as mild hypotension currently. Code: Full, surrogate decision maker is the patient's spouse Dispo: admitted as inpatient. DVT: Hold for procedure today, start Lovenox when able. I have utilized all available immediate resources to obtain, update, or review the patient's current medications. Time Spent With Patient Critical Care time: I spent a total of [] minutes of critical care time on this patient's care today; this time is exclusive of procedural time.
[2021-10-16] MEDS: cefTRIAXone 1,000 MG in SODIUM CHLORIDE 0.9% 100 ML 200 ML IV (10:59)
[2021-10-16] MEDS: diazePAM 10 MG/2 ML SYRINGE 5 MG IV (11:13)
[2021-10-16] MEDS: MAGNESIUM SULFATE 2 GM/50 ML PIGGYBACK IV (12:24)
[2021-10-16] MEDS: LACTATED RINGERS 1,000 ML 1000 ML IV ×2 (14:13→22:10)
--- NOTE | 2021-10-16 16:26 | PC.NURSE ---
day shift - Pt left unit via bed w/ OR nurse at 1625.
--- NOTE | 2021-10-16 16:43 | P.CONS_ITS ---
History of Present Illness Consult details Date Patient Seen: 10/16/21 Time Patient Seen: 12:10 Chief complaint: left kidney pain Reason for consult: 1. Multiple obstructing left distal ureteral calculi. 2. CALIXTO Requesting provider: Abi Morillo Narrative: Patient is a 76-year-old male the presented to the [facility] Emergency Department in the very late hours of 10/15/2021, with complaint of onset and ongoing left flank and lower abdominal pain. He has had a history of nephrolithiasis. In the very recent 3 or 4 years, he reports having presented to the [facility] ED with apparent bilateral obstructing calculi and was transferred to [facility] and underwent staged therapies by Dr. Lantigua. There was no subsequent follow-up. He denies knowledge of having had a previous metabolic stone risk evaluation. CT KUB 10/15/2021, demonstrates 3, or possibly for more left distal ureteral calculi down to the left ureterovesical junction with associated left renal unit obstruction and jay ureteral and perinephric stranding. There are also single, nonobstructing bilateral upper pole calculi measuring at least 6 mm. No Hounsfield unit measurements were made by the reading radiologist. Also, mild right renal parenchymal atrophy. Flat plate KUB 10/16/2021 shows no evidence of radiopaque density over the expected distribution and course of the upper urinary tracts bilaterally, suggesting uric acid stone etiology. Laboratories demonstrated a normal white count 9.2 with mild left shift of 81.3% neutrophils. More significant, was finding consistent with CALIXTO. BUN/creatinine was 22/0.88 on 03/22/2021 which GFR >60. On presentation 10/15/2021 BUN/creatinine had risen to 26/1.41, with GFR estimated at 48.7. Meds Home Medications and Allergies Home Medications Medication Instructions Recorded Confirmed Type atenolol 50 mg tablet 50 mg PO DAILY #90 tab 05/31/21 10/16/21 Rx clopidogrel 75 mg tablet (Plavix) 75 mg PO DAILY #90 tab 05/31/21 10/16/21 Rx lisinopril 5 mg tablet 5 mg PO DAILY #90 tab 05/31/21 10/16/21 Rx metformin 1,000 mg tablet 1,000 mg PO BID #180 tab 05/31/21 10/16/21 Rx ropinirole 4 mg tablet 4 mg PO BEDTIME #90 tab 06/14/21 10/16/21 Rx atorvastatin 20 mg tablet (Lipitor) 20 mg PO BEDTIME #90 tab 07/30/21 10/16/21 Rx albuterol sulfate 90 mcg/actuation 1 puff INHALATION Q6H PRN #8.5 gram 08/30/21 10/16/21 Rx aerosol inhaler (ProAir HFA) Allergies Allergy/AdvReac Type Severity Reaction Status Date / Time No Known Drug Allergies Allergy Verified 04/23/21 09:27 Review of Systems Review of Systems ROS: Yes All systems reviewed with the patient and are negative except as otherwise documented Exam Vital Signs (past 8 hours): - 10/16/21 10:05 10/16/21 10:31 10/16/21 13:54 Temperature 97.0 F L Pulse Rate 74 Respiratory Rate 20 Blood Pressure 125/80 Pulse Oximetry 98 98 97 10/16/21 14:00 10/16/21 14:40 Temperature 96.6 F L Pulse Rate 69 Respiratory Rate 20 Blood Pressure 76/48 L 103/52 L Pulse Oximetry 94 Oxygen Delivery Method Room Air Oxygen Flow Rate 0 Objective Labs Result Diagrams: 10/16/21 07:40 10/16/21 07:40 Labs: Laboratory Results - last 24 hr 10/15/21 10/15/21 10/16/21 23:59 23:59 03:06 WBC 9.2 RBC 4.30 L Hgb 13.4 L Hct 39.5 L MCV 91.8 MCH 31.2 MCHC 34.0 RDW 14.2 Plt Count 157 Neut % (Auto) 81.3 H Lymph % (Auto) 11.6 L [place] % (Auto) 6.0 Eos % (Auto) 0.9 L Baso % (Auto) 0.2 Neut # (Auto) 7500 H Lymph # (Auto) 1100 [place] # (Auto) 600 Eos # (Auto) 100 Baso # (Auto) 0 Sodium 138 140 Potassium 5.5 H 5.0 Chloride 108 H 111 H Carbon Dioxide 19 L 21 L BUN 26 H 26 H Creatinine 1.41 H 1.45 H Estimated GFR 48.7 L 47.2 L BUN/Creatinine Ratio 18.4 17.9 Glucose 173 H 130 H Hemoglobin A1c Calcium 9.2 8.4 Magnesium Total Bilirubin 0.5 Conjugated Bilirubin Unconjugated Bilirubin AST 25 ALT 30 Alkaline Phosphatase 64 Total Protein 7.5 Albumin 4.6 Globulin 2.9 Albumin/Globulin Ratio 1.6 Urine Color Urine Appearance Urine pH Ur Specific [place] Urine Protein Urine Glucose (UA) Urine Ketones Urine Occult Blood Urine Nitrate Urine Bilirubin Urine Urobilinogen Ur Leukocyte Esterase Urine RBC Urine WBC Ur Squamous Epith Cells Urine Bacteria Ur Culture Indicated? Ur Random Sodium Urine Creatinine SARS-CoV-2 (PCR) 10/16/21 10/16/21 10/16/21 04:30 04:30 05:43 WBC RBC Hgb Hct MCV MCH MCHC RDW Plt Count Neut % (Auto) Lymph % (Auto) [place] % (Auto) Eos % (Auto) Baso % (Auto) Neut # (Auto) Lymph # (Auto) [place] # (Auto) Eos # (Auto) Baso # (Auto) Sodium Potassium Chloride Carbon Dioxide BUN Creatinine 1.44 H Estimated GFR 47.6 L BUN/Creatinine Ratio Glucose Hemoglobin A1c Calcium Magnesium Total Bilirubin Conjugated Bilirubin Unconjugated Bilirubin AST ALT Alkaline Phosphatase Total Protein Albumin Globulin Albumin/Globulin Ratio Urine Color Yellow Urine Appearance Sl cloudy Urine pH 5.0 Ur Specific [place] 1.020 Urine Protein 2+ H Urine Glucose (UA) Negative Urine Ketones Negative Urine Occult Blood 3+ H Urine Nitrate Negative Urine Bilirubin Negative Urine Urobilinogen 0.2 Ur Leukocyte Esterase 1+ H Urine RBC 30-100/hpf H Urine WBC 1-5/hpf Ur Squamous Epith Cells 0-1 /hpf Urine Bacteria Occasional (0-1) D Ur Culture Indicated? Specimen cultured Ur Random Sodium 63 Urine Creatinine 86.3 SARS-CoV-2 (PCR) 10/16/21 10/16/21 10/16/21 07:40 07:40 07:40 WBC 5.3 RBC 4.03 L Hgb 12.4 L Hct 37.9 L MCV 94.0 MCH 30.8 MCHC 32.8 RDW 14.5 Plt Count 127 L Neut % (Auto) 69.5 Lymph % (Auto) 21.4 L [place] % (Auto) 7.4 Eos % (Auto) 1.4 L Baso % (Auto) 0.3 Neut # (Auto) 3700 Lymph # (Auto) 1100 [place] # (Auto) 400 Eos # (Auto) 100 Baso # (Auto) 0 Sodium Potassium Chloride Carbon Dioxide BUN Creatinine Estimated GFR BUN/Creatinine Ratio Glucose Hemoglobin A1c 6.4 H Calcium Magnesium Total Bilirubin 0.3 Conjugated Bilirubin 0.0 Unconjugated Bilirubin 0.3 AST 20 ALT 25 Alkaline Phosphatase 56 Total Protein 6.2 L Albumin 3.9 Globulin 2.3 Albumin/Globulin Ratio 1.7 Urine Color Urine Appearance Urine pH Ur Specific [place] Urine Protein Urine Glucose (UA) Urine Ketones Urine Occult Blood Urine Nitrate Urine Bilirubin Urine Urobilinogen Ur Leukocyte Esterase Urine RBC Urine WBC Ur Squamous Epith Cells Urine Bacteria Ur Culture Indicated? Ur Random Sodium Urine Creatinine SARS-CoV-2 (PCR) 10/16/21 10/16/21 07:40 08:21 WBC RBC Hgb Hct MCV MCH MCHC RDW Plt Count Neut % (Auto) Lymph % (Auto) [place] % (Auto) Eos % (Auto) Baso % (Auto) Neut # (Auto) Lymph # (Auto) [place] # (Auto) Eos # (Auto) Baso # (Auto) Sodium 139 Potassium 5.0 Chloride 112 H Carbon Dioxide 19 L BUN 26 H Creatinine 1.48 H Estimated GFR 46.1 L BUN/Creatinine Ratio 17.6 Glucose 114 H Hemoglobin A1c Calcium 8.3 L Magnesium 1.5 L Total Bilirubin Conjugated Bilirubin Unconjugated Bilirubin AST ALT Alkaline Phosphatase Total Protein Albumin Globulin Albumin/Globulin Ratio Urine Color Urine Appearance Urine pH Ur Specific [place] Urine Protein Urine Glucose (UA) Urine Ketones Urine Occult Blood Urine Nitrate Urine Bilirubin Urine Urobilinogen Ur Leukocyte Esterase Urine RBC Urine WBC Ur Squamous Epith Cells Urine Bacteria Ur Culture Indicated? Ur Random Sodium Urine Creatinine SARS-CoV-2 (PCR) Negative [facility] Medical History Frkuwtj-Aftlf-Gmler disease Colon cancer Diabetes mellitus treated with oral medication Hypertension, essential Kidney stones Mixed hyperlipidemia Peripheral vascular disease of extremity Sleep apnea in adult Surgical History S/P ureteral stent placement Status post colectomy (~1995) Status post vascular bypass Family History Father Ulcer History of blood clots Mother No known problems Social History marital status: household members: spouse lives independently: Yes occupational status: other (retired) Tobacco & Substance Use Smoking Status: Former smoker alcohol intake: never substance use type: does not use Assessment & Plan Assessment & Plan narrative: Assessment: 1. Multiple obstructing left distal ureteral calculi. 2. Bilateral nonobstructing nephrolithiasis. 3. Radiolucent stone composition, suggesting uric acid based etiology. 4. Acute kidney injury. 5. Possible early UTI. Plan: 1. Lengthy discussion, and informed consent obtained with patient for cystoscopy/placement left ureteral stent today. 2. Will schedule, in outpatient setting, plan for cystoscopy/left ureteroscopic laser lithotripsy, following rule out UTI and resolution of CALITXO. 3. Patient will benefit from metabolic stone risk evaluation-future, outpatient. Time Spent With Patient Critical Care time: I spent a total of [] minutes of critical care time on this patient's care today; this time is exclusive of procedural time.
--- NOTE | 2021-10-16 17:04 | SUR.OPER ---
Lithotomy on padded OR bed, head on pillow, arms secured on padded arm boards at <90 degrees abduction. Legs secured in padded yellow fins stirrups.
--- NOTE | 2021-10-16 17:10 | PM.PREOP ---
Pre-operative Note COVID-19 Criteria for continued procedure: Expected advancement of disease process, Possibility delay results in more complex future surgery or treatment, Increased loss of function, Continuing or worsening of significant or severe pain, Deterioration of the patient's condition or overall health, Delay expected to result in less-positive ultimate med/surg outcome and Non-surgical alternatives not available or appropriate per current SOC Interval Note History & Physical reviewed/Exam performed by Physician: Yes Changes to H&P: No
--- NOTE | 2021-10-16 17:14 | SUR.HOLD ---
SBAR report at bedside to Dr Tovar with HX diabetes, blood sugar, bolus with low BP at 1400 on floor after Dilaudid and valium.
[2021-10-16] MEDS: CEFAZOLIN 2 GM/20 ML SYRINGE IV (17:25)
--- NOTE | 2021-10-16 18:08 | PM.OP.1 ---
Operative Date/Time/Diagnoses Date of procedure: 10/16/21 Time of procedure: 18:08 Pre-op diagnosis: 1. Multiple obstructing left distal ureteral calculi. 2. Bilateral nonobstructing renal calculi. 3. History nephrolithiasis. 4. Acute kidney injury Post-op diagnosis: other (Interval passage and bladder of 3 calculi.) Procedure & Clinicians Procedure: 1. Cystoscopy/placement left ureteral stent (7 [place] by 22-32 cm multi-length). 2. Cystoscopy/removal bladder calculi (x5)-source of calculi; left distal ureter Same procedure as scheduled: No (Removal of calculi apparently passed into bladder since conduct of CT KUB.) Indications: 1. Multiple obstructing left distal ureteral calculi. 2. Bilateral nonobstructing ureteral calculi. 3. History of ureteral calculi. 4. Acute kidney injury. Surgeon: Brando Cowan Click Yes if Unassisted: Yes Anesthesia Type: General Operative Notes Findings: 1. Urethra-normal caliber without annular stricture or lesion. 2. External sphincter-coapted with normal overlying urothelium. 3. Prostate-4.5-5 cm length with moderate lateral lobe hyperplasia and elevated median bar. 4. Bladder-1 to 2+ trabeculation. There was hyperemia and mild edema of the left ureteral orifice suspicious of recent stone passage/trauma. There were 5 individual identified calculi lying dependently in bladder base measuring up to 5 mm to as small as 1 mm. The 3 largest stones were extracted and submitted for crystallographic analysis. Right ureteral orifice was in normal position, appearance, and configuration. Closure Type: not applicable Specimen(s): other (Stones extracted from bladder-source left distal ureter.) Applied: other (Seven [place] by 22-32 cm multi-length stent.) Estimated Blood Loss (mL): 0 Blood products transfused: none Procedure in detail: The patient was positioned in supine and was administered general anesthesia. He was then repositioned in semi lithotomy, and the lower abdomen, genitalia, and groin were then prepped and draped in sterile fashion. Twenty-two [place] panendoscope was then passed a lower urinary tract with the findings as described above. Unsure of how many stones may still be present left distal ureter in the setting of CALIXTO and recent distal ureteral trauma, decision was made to proceed with planned ureteral stent placement. A 0.35 hybrid guidewire was then selected and advanced in left collecting system under direct and fluoroscopic guidance. Over this, a 7 [place] by 22-32 cm multi-length stent was passed, again under direct and fluoroscopic guidance. Position was satisfactory. NO RETRIEVAL LINE WAS LEFT ATTACHED. Next, an alligator foreign body grasper was used to extract the stones lying dependently in the floor the bladder. The 3 largest stones were submitted to the lab for crystallographic analysis. The bladder was then drained completely and the panendoscope was removed. The patient was then repositioned in supine, was awakened, and transferred to a [place] for transport to PACU. Complications: none Post-operative Condition: stable Disposition: PACU Plan for aftercare: Admit acute care-hospitalist service.
[2021-10-16] MEDS: LACTATED RINGERS 1,000 ML 75 ML IV (21:55)
[2021-10-16] MEDS: OXYCODONE IR 5 MG TABLET PO (22:40)
[2021-10-17] MEDS: ATORVASTATIN 20 MG TABLET PO (00:30)
[2021-10-17] MEDS: ROPINIROLE 1 MG TABLET 4 MG PO (00:32)
[2021-10-17 04:05] VITALS: BP 137/65; PULSE 82; RESP 19; TEMP 36.1; O2SAT 94
[2021-10-17] MEDS: LACTATED RINGERS 1,000 ML 75 ML IV (06:19)
[2021-10-17 07:55] VITALS: BP 127/77; PULSE 89; RESP 18; TEMP 36.3; O2SAT 92
[2021-10-17] MEDS: OXYCODONE IR 5 MG TABLET PO (08:24)
[2021-10-17] MEDS: atenoloL 50 MG TABLET PO (08:25)
[2021-10-17] MEDS: CLOPIDOGREL 75 MG TABLET PO (08:25)
[2021-10-17 09:08] LABS: Add Manual Diff / Slide Review NO; Basophils Absolute Auto 0 /uL (0-100); Basophils Percent Auto 0.1 % (0-2); Eosinophils Absolute Auto 0 /uL (0-450); Hematocrit 32.4 % (41-53); Hemoglobin 10.9 g/dL (13.5-17.5); Lymphocytes Absolute Auto 700 /uL (1100-4500); Mean Corpuscular HGB Conc 33.5 % (30-36); Mean Corpuscular Hemoglobin 30.9 PG (26-34); Mean Corpuscular Volume 92.4 fL (80-100); Monocytes Absolute Auto 300 /uL (0-900); Monocytes Percent Auto 6.5 % (3-14); Neutrophils Absolute Auto 3600 /uL (1500-7000); Neutrophils Percent Auto 77.4 % (50-75); Platelet Count 112 X10^3/uL (150-400); Red Blood Cell Count 3.51 X10^6/uL (4.5-5.9); Red Cell Distribution Width 14.4 % (11.6-14.8); White Blood Cell Count 4.7 X10^3/uL (4.5-11.0)
[2021-10-17 09:33] LABS: BUN Creatinine Ratio 19.6 (6-22); Blood Urea Nitrogen 20 mg/dL (9-20); Calcium 8.6 mg/dL (8.4-10.2); Carbon Dioxide 25 mmol/L (22-32); Chloride 109 mmol/L (98-107); Estimated Glomerular Filt Rate > 60.0 mL/min (>60); Glucose 110 mg/dL (80-110); HEMOLYSIS < 15 (0-50); Magnesium 1.9 mg/dL (1.6-2.3); Potassium 4.7 mmol/L (3.4-5.1); Sodium 137 mmol/L (137-145)
[2021-10-17 09:52] LABS: Alanine Aminotransferase 20 IU/L (<50); Albumin 3.6 g/dL (3.5-5.0); Albumin Globulin Ratio 1.8 (1.0-2.8); Alkaline Phosphatase 57 U/L (38-126); Aspartate Aminotransferase 19 IU/L (17-59); Bilirubin Total 0.3 mg/dL (0.2-1.3); Bilirubin Unconjugated 0.2 mg/dL (0.0-1.1); HEMOLYSIS < 15 (0-50); Total Protein 5.6 g/dL (6.3-8.2)
--- NOTE | 2021-10-17 10:13 | PM.DS.1 ---
History of Present Illness History of Present Illness Date Patient Seen: 10/17/21 Time Patient Seen: 10:13 Chief complaint: left kidney pain Narrative: This is a 76-year-old male with the past medical history of Xqtesxh-Coahc-Qcqxf, restless leg syndrome, colon cancer, type 2 diabetes, hypertension, and obstructive nephrolithiasis in the past who presented with an abrupt onset of sharp and crampy left lower quadrant and flank pain starting late yesterday evening. He denies any radiation into his groin or his back, and he rates the pain is severe initially and is worse with movement but improves with staying still. He reports this is similar to his prior episodes of obstructive nephrolithiasis. He did feel nauseous with onset of symptoms but denied any vomiting. He denies any fever but felt chills yesterday also when in pain. He denies any chest pain or shortness of breath. He denies any dysuria or urinary frequency, diarrhea, or constipation. He has had no lower extremity edema or rash. In the emergency room, the patient's vital signs were unremarkable, initial laboratory evaluation showed a mild thrombocytopenia and mild anemia but no leukocytosis. Chemistries revealed a mildly increased creatinine at 1.48 from a usual baseline of 0.8. Magnesium was low at 1.5. A1c shows adequate control with 6.4%. Carbon dioxide was slightly low at 19 with a normal anion gap, and his potassium was initially high but improved with fluid administration. CT scan of his abdomen showed a nonobstructive left nephrolithiasis. Urology was consulted and requested admission to medicine with urology consult for probable stent placement. Urinalysis showed 30-100 rbc's, 1-5 wbc's with minimal squamous cells and occasional bacteria, and the specimen was sent for culture. COVID-19 testing was negative. Discharge Providers Provider Date of admission: 10/16/21 06:43 Discharge Date: 10/17/21 Primary care physician: Dmitry Ferguson MD Consults: 10/16/21 06:58 Consult to Physician Routine Comment: Consulting Provider: Brando Cowan Reason for consultation: UPJ obstruction Has provider been notified: Yes Discharge provider: Tang Albarran DO Summary Hospital Course Discharge Diagnosis: 1. bilateral nephrolithiasis with L obstructive disease and CALIXTO, acute, present on admission 2. Bguexiq-Pkoyi-Iupqy disease 3. Type 2 diabetes, well controlled 4. Essential hypertension Hospital Course: This is a 76-year-old male with the past medical history of Xxshzet-Dvwai-Odpum, restless leg syndrome, colon cancer, type 2 diabetes, hypertension, and obstructive nephrolithiasis in the past admitted with a left obstructive uropathy. Urology was consulted and he underwent left ureteral stent placement, multiple stones were removed from his bladder during the procedure and sent for analysis. Cultures taken the emergency room ultimately showed no growth, and no antibiotics were recommended the time of discharge. The patient was given IV fluids for his CALIXTO, along with stent placement, with eventual improvement in his creatinine. He improved more quickly than expected and He had no further pain and was tolerating a diet on the day of discharge. No changes are recommended to his home medications at the time of discharge, though some of his home antihypertensives were held in the setting of CALIXTO and borderline low blood pressures which improved over the course of admission. Time Spent with Patient Time spent: Greater than 30 minutes Exam Vital Signs (past 8 hours): - 10/17/21 04:05 Temperature 96.9 F L Pulse Rate 82 Respiratory Rate 19 Blood Pressure 137/65 Pulse Oximetry 94 Oxygen Delivery Method Room Air Oxygen Flow Rate 0 Narrative Exam Narrative: General:? Patient is well developed and well nourished, in no distress at this time. HEENT:? Normocephalic, atraumatic, extraocular muscles intact, oral pharynx is clear and mucous membranes are moist. Neck: supple and symmetric, trachea is midline, no cervical adenopathy. Negative for JVD Chest:? Normal AP diameter and contour without kyphoscoliosis, no tachypnea, equal chest rise bilaterally. Lungs:? CTA b/l no wheezing rhonchi or rales. Cardio:?RRR no m/r/g. Abdomen: S NT ND. No CVA tenderness. Musculoskeletal:? Muscle strength and tone are equal within normal limits, no deformity. Extremities: No edema or joint effusions. No cyanosis or clubbing. Skin:? Pale,? Warm to touch,dry and intact without rashes, ulcerations or petechiae.? Neuro:? Alert and orientated x3,? sensation to touch intact in all extremities, no gross deficits noted of cranial nerves. Psych:? Patient has a well-kept appearance, appropriate affect, mental status attitude thought context and judgment are appropriate for age. Objective Labs Result Diagrams: 10/17/21 08:30 10/17/21 08:30 Labs: Laboratory Results - last 24 hr 10/17/21 10/17/21 10/17/21 08:30 08:30 08:30 WBC 4.7 RBC 3.51 L Hgb 10.9 L Hct 32.4 L MCV 92.4 MCH 30.9 MCHC 33.5 RDW 14.4 Plt Count 112 L Neut % (Auto) 77.4 H Lymph % (Auto) 15.0 L [place] % (Auto) 6.5 Eos % (Auto) 1.0 L Baso % (Auto) 0.1 Neut # (Auto) 3600 Lymph # (Auto) 700 L [place] # (Auto) 300 Eos # (Auto) 0 Baso # (Auto) 0 Sodium 137 Potassium 4.7 Chloride 109 H Carbon Dioxide 25 BUN 20 Creatinine 1.02 Estimated GFR > 60.0 BUN/Creatinine Ratio 19.6 Glucose 110 Calcium 8.6 Magnesium 1.9 Total Bilirubin 0.3 Conjugated Bilirubin 0.0 Unconjugated Bilirubin 0.2 AST 19 ALT 20 Alkaline Phosphatase 57 Total Protein 5.6 L Albumin 3.6 Globulin 2.0 Albumin/Globulin Ratio 1.8 [facility] Medical History Eayykqj-Hfppb-Hdanc disease Colon cancer Diabetes mellitus treated with oral medication Hypertension, essential Kidney stones Mixed hyperlipidemia Peripheral vascular disease of extremity Sleep apnea in adult Surgical History S/P ureteral stent placement Status post colectomy (~1995) Status post vascular bypass Family History Father Ulcer History of blood clots Mother No known problems Social History marital status: household members: spouse lives independently: Yes occupational status: other Smoking Status: Former smoker alcohol intake: never substance use type: does not use Discharge Plan Discharge Plan Patient Disposition: Home Provider Discharge Comment: You were admitted to the hospital with an obstructing left kidney stone. A stent was placed. Please follow up with the urology clinic. No medication adjustments are needed at this time. Discharge orders & Medications Prescriptions: Continued clopidogrel [Plavix] 75 mg tablet 75 mg PO DAILY Qty: 90 3RF lisinopril 5 mg tablet 5 mg PO DAILY Qty: 90 3RF metformin 1,000 mg tablet 1,000 mg PO BID Qty: 180 1RF atenolol 50 mg tablet 50 mg PO DAILY Qty: 90 3RF ropinirole 4 mg tablet 4 mg PO BEDTIME Qty: 90 2RF Rx Instructions: administer 1-3 hours before bedtime atorvastatin [Lipitor] 20 mg tablet 20 mg PO BEDTIME Qty: 90 2RF ProAir HFA 90 mcg/actuation HFA aerosol inhaler 1 puff INHALATION Q6H PRN (Reason: shortness of breath or wheezing) Qty: 8.5 11RF Follow up/Referrals: Dmitry Ferguson MD [Primary Care Provider] - Diet/Activity/Treatments Diet: Diet as Tolerated Activity: As tolerated Visit Report/Discharge Packet Instructions: DI for Kidney Stones, DI for Cystoscopy, Renal (Kidney) Disease Diet -- For People Not on Dialysis, DI for Prescription Opioid Use Discharge Data Primary Care Provider: Dmitry Ferguson Quality VTE Deep Vein Thrombosis/Pulmonary Embolism Present on Admission: No
--- NOTE | 2021-10-17 10:41 | CM.DANOTE ---
DCP: Case received, EMR reviewed and met with patient. Spouse, Jayla, was also in the room. Introduced self and role. Was able to obtain information regarding patient's baseline activity level prior to hospitalization. DCP assessment completed with information currently available. Patient is a 76 year old male who admitted yesterday morning to the care of the hospitalist team. PCP: Dr. Ferguson. Payer: confirmed: Medicare/[employer]. Patient came to the hospital via private vehicle secondary to having increased left flank pain. Patient has history of iron deficiency anemia, colon cancer, type 2 diabetes, and Charot Yolande tooth and prior kidney stone. Patient holds diagnosis of bilateral nephrolithiasis with left obstructive disease. Patient had cystoscopy yesterday with Dr. Chen. Met with patient and spouse in the room. They are both pleasant, patient is alert and oriented. They both reside in [place]. Patient does have a FWW for home use, he has support from spouse. P: Patient is to be discharged home today. Misty Baird RN/Medical Instrument Cable Fabricator Discharge Planning/Care Management CM Discharge Assessment Start: 10/17/21 10:39 Freq: Status: Active Protocol: Document 10/17/21 10:39 (Rec: 10/17/21 10:41 [id number]) Discharge Planning Assessment Assigned Drier Transfer Car Operator Misty Baird RN/Medical Instrument Cable Fabricator Advance Directives? Yes Advance Directives on File Yes History Provided By Patient,Medical Record Prior Living Arrangements House Household Members spouse Type of transporation used prior to Drives own vehicle admit Independent with ADL's Yes Is patient alert and oriented? Yes Needs Assistance With Home Chores / Shopping DME Already Rented / Owned FWW / Walker Barriers to Discharge No Comment Has good spousal support at home. Discharge Plan Home Transportation Arrangement Spouse Referrals Initiated None needed Whiteboard Updated in Patient Room with Yes name and ext. # of Drier Transfer Car Operator Review Status In Process Next Review Type Continued Stay Review
[2021-10-22 11:36] LABS: Ca oxalate dihydrate 10 % (.); Ca oxalate monohydr 90 % (.); Size 7x6 mm (.)
== END 2021-10-17 11:19 | disposition home or self-care (01) | DRG 694 ==
LOC: ED 10-16 06:37 → AC 10-16 07:10
PROVIDERS: Internal Medicine; Specialist; Admitting Provider Nurse Practitioner Family; Emergency Provider Emergency Medicine; PCP Student in an Organized Health Care Education/Training Program; Visit Provider Nurse Practitioner Family
PROC: 0T9780Z Drainage of Left Ureter with Drainage Device, Via Natural or Artificial Opening Endoscopic (ICD-10-PCS; principal; 2021-10-16 16:45)
DX: N13.2 Hydronephrosis with renal and ureteral calculous obstruction (principal); G60.0 Hereditary motor and sensory neuropathy; N17.9 Acute kidney failure, unspecified; N21.0 Calculus in bladder; I10 Essential (primary) hypertension; E11.9 Type 2 diabetes mellitus without complications; I73.9 Peripheral vascular disease, unspecified; I25.10 Atherosclerotic heart disease of native coronary artery without angina pectoris; E78.2 Mixed hyperlipidemia; Z20.822 Contact with and (suspected) exposure to COVID-19; Z79.84 Long term (current) use of oral hypoglycemic drugs; Z87.891 Personal history of nicotine dependence
CPT/HCPCS: 36415; 52332; 74018; 74176; 76000; 80048; 80053; 80076; 81001; 82365; 82565; 82570; 82962; 83036; 83735; 84300; 85025; 87086; 87635; 96374; 96375; 96376; 99233; 99284; 99285; C9803; J0690; J0696; J1170; J1815; J1885; J2405; J2704; J3010; J3360; J3475

== ENCOUNTER → 2021-11-08 14:14 | Outpatient (CLI) | payer MEDICARE, SELFPAY ==
[2021-10-17 15:58] VITALS: BMI 29.0
== END ==
PROVIDERS: PCP Student in an Organized Health Care Education/Training Program; Visit Provider Specialist
DX: N20.0 Calculus of kidney (principal); R30.0 Dysuria; Z96.0 Presence of urogenital implants
CPT/HCPCS: 81002; 87077; 87086; 87186; 99215

== ENCOUNTER 2021-11-14 11:00 | Emergency (ER) | payer MEDICARE, SELFPAY ==
[2021-10-17 15:58] VITALS: BMI 29.0
[2021-11-14 11:07] VITALS: BP 140/85; PULSE 98; RESP 15; TEMP 36.7; O2SAT 96; BMI 29.0
--- NOTE | 2021-11-14 11:33 | ED.SKABFB ---
HPI - Skin/Abscess/Foreign Bdy General Chief complaint: Skin/Abscess/Foreign Body Stated complaint: infection on finger couple weeks left hand Time Seen by Provider: 11/14/21 11:19 Source: patient Mode of arrival: Ambulatory Limitations: no limitations History of Present Illness HPI narrative: The patient has a deformed left 3rd digit due to a prior industrial accident. There are fragments of the nail bed left, with a pulse P distal 3rd finger. He 1st experienced gout in that finger several years ago. Over the past week he developed erythema focused in the left 3rd DIP joint. He opened a cyst-like structure at the joint, a pudding like substance came forth. He likely drained a tophi. He had 2 doses of colchicine left at home, though cell briefly, he is now medications. He has no fever or chills. He has no numbness or weakness in the finger. Symptoms are consistent with prior exacerbations of gout. Related Data Previous Rx's Medication Instructions Recorded atenolol 50 mg tablet 50 mg PO DAILY #90 tab 05/31/21 clopidogrel 75 mg tablet (Plavix) 75 mg PO DAILY #90 tab 05/31/21 lisinopril 5 mg tablet 5 mg PO DAILY #90 tab 05/31/21 metformin 1,000 mg tablet 1,000 mg PO BID #180 tab 05/31/21 ropinirole 4 mg tablet 4 mg PO BEDTIME #90 tab 06/14/21 atorvastatin 20 mg tablet (Lipitor) 20 mg PO BEDTIME #90 tab 07/30/21 albuterol sulfate 90 mcg/actuation 1 puff INHALATION Q6H PRN #8.5 gram 08/30/21 aerosol inhaler (ProAir HFA) colchicine 0.6 mg tablet 0.6 mg PO DAILY #6 tab 10/24/21 cephalexin 500 mg tablet 500 mg PO QID 10 Days #40 tab 11/12/21 sulfamethoxazole 800 1 tab PO BID 10 Days #20 tab 11/12/21 mg-trimethoprim 160 mg tablet (Bactrim DS) sulfamethoxazole 800 1 tab PO BID 10 Days #20 tab 11/12/21 mg-trimethoprim 160 mg tablet (Bactrim DS) colchicine 0.6 mg capsule 0.6 mg PO DAILY #30 cap 11/14/21 prednisone 20 mg tablet 40 mg PO DAILY 5 Days #10 tab 11/14/21 Allergies Allergy/AdvReac Type Severity Reaction Status Date / Time No Known Drug Allergies Allergy Verified 11/14/21 11:11 Review of Systems Review of Systems Narrative: ROS as per HPI. Patient History Medical History Arthritis Jlxzfsw-Mxylb-Yvsrp disease Colon cancer Diabetes Diabetes mellitus treated with oral medication Hernia High blood pressure Hypertension, essential Kidney stones Mixed hyperlipidemia Peripheral vascular disease of extremity Sleep apnea in adult Surgical History S/P ureteral stent placement Status post colectomy (~1995) Status post vascular bypass Family History Father Ulcer History of blood clots Mother No known problems Social History marital status: household members: spouse lives independently: Yes occupational status: other Smoking Status: Former smoker alcohol intake: never substance use type: does not use Type(s) of exercise: bicycling frequency: 1-2 times per week Smoking Status: Former smoker alcohol intake frequency: a few times a week Substance Use Type: does not use Exam Initial Vital Signs Initial Vital Signs: Vital Signs Temperature 98.1 F 11/14/21 11:07 Pulse Rate 98 H 11/14/21 11:07 Respiratory Rate 15 11/14/21 11:07 Blood Pressure 140/85 11/14/21 11:07 Pulse Oximetry 96 11/14/21 11:07 Const General: cooperative, comfortable and No acute distress Skin Other: Erythema to the left 3rd finger, no other rashes or lesions. Neuro General: patient alert, patient awake, patient oriented x3 and no focal motor deficits Sensory Exam: no sensory deficits noted Extrem Other: Left 3rd digit is edematous with erythema over the mid phalanx, the focus around the D IP joint. There is a small eschar site at the site drained, there is no induration or fluctuance. There were fragments of the nailbed protruding from the distal digit, remnants of his prior injury. Psych Mental Status: mental status grossly normal Course Vital Signs Vital signs: Vital Signs - 8 hr 11/14/21 11:07 Temperature 98.1 F Pulse Rate 98 H Respiratory Rate 15 Blood Pressure 140/85 Pulse Oximetry 96 Discharge Plan Departure Patient Disposition: Home Clinical Impression: Gout flare Instructions: Gout Activity Restrictions/Additional Instructions: Colchicine 0.6 mg. Take 2 tabs today and tomorrow, then 1 tablet daily until symptoms resolve. Prednisone 40 mg daily for 5 days. Follow-up with your doctor as scheduled. Return tomorrow if the swelling to the left 3rd finger increases. Prescriptions: New prednisone 20 mg tablet 40 mg PO DAILY 5 Days Qty: 10 0RF colchicine 0.6 mg capsule 0.6 mg PO DAILY Qty: 30 0RF Rx Instructions: Take 2 tabs daily today and tomorrow, then 1 tablet daily until symptoms resolve. No Action sulfamethoxazole-trimethoprim [Bactrim DS] 800-160 mg tablet 1 tab PO BID 10 Days Qty: 20 0RF cephalexin 500 mg tablet 500 mg PO QID 10 Days Qty: 40 0RF clopidogrel [Plavix] 75 mg tablet 75 mg PO DAILY Qty: 90 3RF lisinopril 5 mg tablet 5 mg PO DAILY Qty: 90 3RF metformin 1,000 mg tablet 1,000 mg PO BID Qty: 180 1RF atenolol 50 mg tablet 50 mg PO DAILY Qty: 90 3RF ropinirole 4 mg tablet 4 mg PO BEDTIME Qty: 90 2RF Rx Instructions: administer 1-3 hours before bedtime atorvastatin [Lipitor] 20 mg tablet 20 mg PO BEDTIME Qty: 90 2RF ProAir HFA 90 mcg/actuation HFA aerosol inhaler 1 puff INHALATION Q6H PRN (Reason: shortness of breath or wheezing) Qty: 8.5 11RF colchicine 0.6 mg tablet 0.6 mg PO DAILY Qty: 6 0RF Rx Instructions: 2 tabs with first sign of flare, 1 tab one hour later. No more than 3 tabs in 24 hrs sulfamethoxazole-trimethoprim [Bactrim DS] 800-160 mg tablet 1 tab PO BID 10 Days Qty: 20 0RF Referrals: Dmitry Ferguson MD [Primary Care Provider] -
== END 2021-11-14 11:49 | disposition home or self-care (01) ==
PROVIDERS: Emergency Provider Emergency Medicine; PCP Student in an Organized Health Care Education/Training Program
DX: M10.9 Gout, unspecified (principal)
CPT/HCPCS: 99281

== ENCOUNTER → 2021-11-15 07:49 | Outpatient (CLI) | payer MEDICARE, SELFPAY ==
[2021-10-17 15:58] VITALS: BMI 29.0
--- NOTE | 2021-11-15 07:51 | DI.CT.S_ITS ---
PROCEDURE: CT KIDNEY URETER BLADDER (KUB) INDICATIONS: request stone measurements for size and hounsfield units TECHNIQUE: Axial sections were acquired from the lung bases to the pubic symphysis. Coronal and sagittal reformats were performed. For radiation dose reduction, the following was used: automated exposure control, adjustment of mA and/or kV according to patient size. COMPARISON: [facility], CT, CT KIDNEY URETER BLADDER (KUB), 10/15/2021, 23:54. FINDINGS: Image quality: Excellent. Lung bases: Unremarkable. Heart: No significant findings. URINARY: Right Kidney: Nonobstructing right upper pole ovoid stone measures 0.9 x 0.4 x 0.5 cm with Hounsfield units ranging from 388-447. Other punctate foci of calcification are too small to measure. No right-sided hydronephrosis. Several surgical clips in the right retroperitoneum. Right Ureter: No right hydroureter or ureteral calcifications. Left Kidney: Left nephroureteral stent in place with stent material extending into an upper pole calyx. There is a nonobstructing left upper pole curvilinear calculus measuring 1.1 x 0.6 x 0.7 cm and with Hounsfield units ranging from 500-661. No other intrarenal calculi. No hydronephrosis. Left Ureter: Nephroureteral stent in appropriate position. Mild proximal periureteric inflammation. Bladder: Partially decompressed urinary bladder with normal wall thickness. No calcifications. ABDOMEN: Liver: No masses Gallbladder: Decompressed. Biliary ducts: Nondilated. Pancreas: Normal. Spleen: Normal size. Adrenal Glands: No nodules. Stomach and Bowel: Stomach and small bowel are normal. Prior right hemicolectomy. Descending and sigmoid diverticulosis. Peritoneum: No abnormal intraperitoneal fluid. No free air. Ventral Wall: There is a ventral rectus diastasis. Abdominal Nodes: No enlarged retroperitoneal or mesenteric lymph nodes. Vessels: Aorta and inferior vena cava are normal in size. Moderate abdominal aortic atherosclerotic calcification. PELVIS: Pelvic Organs: Moderate prostatomegaly. Pelvic Nodes: Unremarkable. Miscellaneous: No inguinal hernias are seen. Bones: Unremarkable. IMPRESSION: 1. Interval placement of left nephroureteral stent and resolution of left hydronephrosis. 2. Nonobstructing upper pole nephrolithiasis as described above. 3. Colonic diverticulosis. Dictated by: Chaya Pugh M.D. on 11/15/2021 at 11:28 Approved by: Chaya Pugh M.D. on 11/15/2021 at 12:47
== END ==
PROVIDERS: PCP Student in an Organized Health Care Education/Training Program; Referring Provider Specialist; Visit Provider Specialist
DX: N20.0 Calculus of kidney (principal); K57.30 Diverticulosis of large intestine without perforation or abscess without bleeding
CPT/HCPCS: 74176

== ENCOUNTER → 2021-11-20 14:57 | Outpatient (CLI) | payer MEDICARE, SELFPAY ==
[2021-10-17 15:58] VITALS: BMI 29.0
--- NOTE | 2021-11-20 15:00 | DI.RAD.S_ITS ---
PROCEDURE: XR KUB INDICATIONS: kidney stones TECHNIQUE: One view of the abdomen acquired. COMPARISON: [facility], CT, CT KIDNEY URETER BLADDER (KUB), 11/15/2021, 8:05. [facility], CR, XR KUB, 10/16/2021, 14:13. FINDINGS: Surgical changes and devices: Surgical clips are again seen in right side of abdomen. There is interval placement of a left-sided ureteral stent. Bowel: Bowel gas pattern is normal. Soft tissues: Possible small calcification projecting in left renal fossa is seen measures [address] finding of right renal stones are not definitely seen on this study. Visualized solid organ contours appear normal in size. Bones: No suspicious bony lesions. IMPRESSION: Left-sided ureteral stent in place. Suggestion of a left renal stone as above. No definite right renal stone is seen on this study. Dictated by: Leon Stapleton M.D. on 11/20/2021 at 16:26 Approved by: Leon Stapleton M.D. on 11/20/2021 at 16:28
== END ==
PROVIDERS: PCP Student in an Organized Health Care Education/Training Program; Referring Provider Specialist; Visit Provider Specialist
DX: N20.0 Calculus of kidney (principal); Z96.0 Presence of urogenital implants
CPT/HCPCS: 74018

== ENCOUNTER → 2021-11-28 09:06 | Outpatient (CLI) | payer MEDICARE, SELFPAY ==
[2021-10-17 15:58] VITALS: BMI 29.0
[2021-11-28 10:15] LABS: Appearance Urine UA CLOUDY; Bilirubin Urine UA NEGATIVE (NEGATIVE); Color Urine UA BROWN; Glucose Urine UA NEGATIVE (Negative); Ketones Urine UA NEGATIVE (NEGATIVE); Leukocyte Esterase Urine UA 1+ (NEGATIVE); Nitrite Urine UA NEGATIVE (Negative); Occult Blood Urine UA 3+ (Negative); Protein Urine UA 2+ (Negative); Urobilinogen Urine UA 0.2 E.U./dL (0.2)
[2021-11-28 10:22] LABS: Bacteria Urine None Seen; Culture Indicated Urine Specimen Cultured; RBC Urine >100/HPF (0-5/HPF); WBC Urine 10-30/HPF (0-5/HPF)
== END ==
PROVIDERS: PCP Student in an Organized Health Care Education/Training Program; Visit Provider Specialist
DX: R30.0 Dysuria (principal)
CPT/HCPCS: 81001; 87086

== ENCOUNTER → 2021-11-29 10:48 | Outpatient (CLI) | payer MEDICARE, SELFPAY ==
[2021-10-17 15:58] VITALS: BMI 29.0
--- NOTE | 2021-11-29 10:51 | DI.RAD.S_ITS ---
PROCEDURE: XR HAND LT MIN 3V INDICATIONS: Joint inflammation TECHNIQUE: 3 views of the hand(s) acquired. COMPARISON: None. FINDINGS: Bones: No acute fractures or dislocations. Amputation of the distal phalanxes of the 3rd and 4th digits is present. Lucencies within the distal aspect of the middle phalanx of the 3rd digit are present. Carpal bones are normally aligned. No suspicious bony lesions. Soft tissues: No suspicious soft tissue calcifications. IMPRESSION: 1. Postsurgical sequelae. 2. 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 Dictated by: Cody Ivory M.D. on 11/29/2021 at 11:10 Approved by: Cody Ivory M.D. on 11/29/2021 at 11:11
== END ==
PROVIDERS: PCP Student in an Organized Health Care Education/Training Program; Referring Provider Student in an Organized Health Care Education/Training Program; Visit Provider Student in an Organized Health Care Education/Training Program
DX: M00.9 Pyogenic arthritis, unspecified (principal); M86.9 Osteomyelitis, unspecified; Z89.022 Acquired absence of left finger(s)
CPT/HCPCS: 73130; 87070; 87075; 87205

== ENCOUNTER → 2021-11-29 12:12 | Outpatient (CLI) | payer MEDICARE, SELFPAY ==
[2021-10-17 15:58] VITALS: BMI 29.0
== END ==
PROVIDERS: PCP Student in an Organized Health Care Education/Training Program; Visit Provider Student in an Organized Health Care Education/Training Program
DX: M86.9 Osteomyelitis, unspecified (principal)
CPT/HCPCS: 87070; 87075; 87205

== ENCOUNTER → 2021-11-30 10:07 | Outpatient (CLI) | payer MEDICARE, SELFPAY ==
[2021-10-17 15:58] VITALS: BMI 29.0
[2021-11-30 10:39] LABS: COVID19 -Nasal RAPID Negative (Negative)
== END ==
PROVIDERS: PCP Student in an Organized Health Care Education/Training Program; Visit Provider Specialist
DX: Z20.822 Contact with and (suspected) exposure to COVID-19 (principal); R30.0 Dysuria
CPT/HCPCS: 87086; 87635; C9803

== ENCOUNTER 2021-12-03 09:07 | Day surgery (SDC) | payer MEDICARE, SELFPAY ==
[2021-10-17 15:58] VITALS: BMI 29.0
--- NOTE | 2021-12-03 | DI.RAD.S_ITS ---
PROCEDURE: XR KUB INDICATIONS: Left renal calculus TECHNIQUE: One view of the abdomen acquired. COMPARISON: [facility], CT, CT KIDNEY URETER BLADDER (KUB), 11/15/2021, 8:05. [facility], CR, XR KUB, 11/20/2021, 14:50. FINDINGS: Surgical changes and devices: Left-sided ureteral stent is again seen. Multiple surgical clips in right abdomen are again noted. Bowel: Bowel gas pattern is normal. Soft tissues: There is subtle 8 x 10 mm calcifications seen projecting over left renal fossa /proximal left ureter. 6 mm calcification is seen projecting in the region of upper pole right kidney. Visualized solid organ contours appear normal in size. Bones: No suspicious bony lesions. IMPRESSION: Finding is suggestive of bilateral renal calculi with left-sided ureteral stent in place. No gross peritoneal free air. Dictated by: Leon Stapleton M.D. on 12/03/2021 at 10:12 Approved by: Leon Stapleton M.D. on 12/03/2021 at 10:19
[2021-12-03 10:19] VITALS: BP 121/76; PULSE 73; RESP 16; TEMP 36.4; O2SAT 99; BMI 29.0
[2021-12-03] MEDS: ACETAMINOPHEN IV 1,000 MG/100 ML VIAL 400 MG IV (10:42)
[2021-12-03] MEDS: LACTATED RINGERS 1,000 ML 42 ML IV (10:45)
--- NOTE | 2021-12-03 11:52 | PM.PREOP ---
Pre-operative Note COVID-19 Criteria for continued procedure: Expected advancement of disease process, Possibility delay results in more complex future surgery or treatment, Deterioration of the patient's condition or overall health, Delay expected to result in less-positive ultimate med/surg outcome and Non-surgical alternatives not available or appropriate per current SOC Interval Note History & Physical reviewed/Exam performed by Physician: Yes Changes to H&P: Yes H&P completed within 30 days and has changed as indicated here:: In the interval the patient was diagnosed and is now under treatment with clindamycin following incision and drainage of 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 He is now scheduled to see a specialist in the coming days for reassessment and possible surgery.
[2021-12-03] MEDS: VANCOMYCIN 1,000 MG/200 ML PIGGYBACK 200 MG IV (12:03)
--- NOTE | 2021-12-03 12:48 | SUR.OPER ---
Lithotomy on padded OR bed, head on pillow, arms secured on padded arm boards at <90 degrees abduction. Legs secured in padded yellow fins stirrups.
[2021-12-03] MEDS: GENTAMICIN 160 MG in SODIUM CHLORIDE 0.9% 100 ML 104 ML IV (13:01)
[2021-12-03] MEDS: IOPAMIDOL 50 ML VIAL INJ (13:12)
--- NOTE | 2021-12-03 13:54 | P.OP_ITS ---
Operative Date/Time/Diagnoses Date of procedure: 12/03/21 Time of procedure: 13:54 Pre-op diagnosis: 1. 1.1 cm left renal calculus. 2. History left renal colic. Post-op diagnosis: same Procedure & Clinicians Procedure: 1. Cystoscopy/left retrograde pyelogram. 2. Cystoscopy/left ureteroscopic laser lithotripsy. 3. Cystoscopy/left ureteral stent exchange (7 Bh[place]anese by 22-32 cm multi-length). Same procedure as scheduled: Yes Indications: 1. 1.1 cm left renal calculus. 2. History of left renal colic. 3. Retained left ureteral stent. Surgeon: Brando Cowan Click Yes if Unassisted: Yes Anesthesia Type: General Operative Notes Findings: 1. Urethra-mildly obstructing annular bulbar stricture. The site was negotiated and in affect dilated with passage of the 22 [place] panendoscope. 2. External sphincter-coapted with normal overlying urothelium. 3. Prostate-Force +cm length with moderate trilobar hyperplasia. 4. Bladder-1+ trabeculation. Normal right ureteral orifice. Left ureteral orifice has a intact left stent emanating from within. 5. Left kidney-in the interval the 1.1 cm left upper pole calculus had migrated into the left renal pelvis proper. Closure Type: not applicable Specimen(s): other (Stone fragments and sand.) Applied: other (Seven [place]anese by 22-32 cm multi-length stent.) Estimated Blood Loss (mL): 5 Blood products transfused: none Procedure in detail: Patient was positioned in supine was administered general anesthesia. He was then repositioned in semi lithotomy and the lower abdomen, genitalia, and groin were then prepped and draped in sterile fashion. The 22 [place] panendoscope was then passed lower urinary tract with the findings as described above. An alligator tooth foreign body grasper was then used to engage distal in the left ureteral stent. The scope was then withdrawn bringing the distal end of the stent beyond the penile meatus. A 0.35 hybrid ureteral guidewire was then advanced through the indwelling ureteral stent and advanced proximally under direct and fluoroscopic visualization. The indwelling stent was then backloaded off the wire and discarded. Panendoscope was backloaded off the hybrid guidewire. A dual lumen ureteral access sheath was then advanced over the hybrid guidewire advanced proximally under direct and fluoroscopic guidance to the proximal level of the left renal collecting system. A retrograde pyelogram was then performed through the accessory channel of the a dual lumen ureteral access sheath. The intrarenal collecting system which generally dilated, particularly the upper pole. No definite calculus/filling defect could be identified. Next, a 2nd 0.35 hybrid guidewire was advanced through the accessory port of the dual-lumen ureteral access sheath under fluoroscopic guidance the dual lumen ureteral access sheath was then backloaded off both wires. One of the wires was secured to the operative drape. Over the other wire the flexible ureteral scope was advanced under fluoroscopic guidance. Beginning at the upper pole a diligent search was undertaken to locate the index calculus. All calices were examined. The index calculus resided at this time in the left renal pelvis. A 200 micron laser fiber was then requested. All operating room personnel and patient were then fitted with laser safety eyewear. Laser fiber was advanced through the scope and lithotripsy was then commenced with excellent subsequent stone fragmentation, mainly to dust and sand. Most material insisted on lying dependently on the posterior wall the dilated renal pelvis. The flexible ureteral scope was then carefully withdrawn and the ureter was examined until the scope passed into the bladder. Next, the 22 [place] panendoscope was front loaded on hybrid guidewire and advanced into the bladder under direct visualization. Over this a 7 [place] by 22-32 cm multi-length stent was advanced under direct and fluoroscopic guidance and positioned satisfactorily in the left collecting system. NO RETRIEVAL LINE WAS LEFT ATTACHED The bladder was then drained completely and all instrumentation was removed. The patient was repositioned in supine, was awakened, and was transferred to a gurney in stable condition. Complications: none Post-operative Condition: stable Disposition: PACU Plan for aftercare: Discharge home.
[2021-12-03 14:01] VITALS: BP 123/75; PULSE 77; RESP 14; TEMP 36.2; O2SAT 94
[2021-12-03 14:05] VITALS: BP 136/71; PULSE 74; RESP 16; O2SAT 95
[2021-12-03 14:11] VITALS: PULSE 80; RESP 16; O2SAT 95
[2021-12-03 14:15] VITALS: BP 120/74; PULSE 73; RESP 14; TEMP 36.3; O2SAT 20
[2021-12-03 14:56] VITALS: BP 116/80; PULSE 73; RESP 17; TEMP 36.6; O2SAT 98
--- NOTE | 2021-12-03 17:56 | SUR.PHASEII ---
1510 Patient assisted with dressing by his per his request. Transferred to wheelchair with assistance. No further questions/concerns. Stable.
[2021-12-12 13:49] LABS: Ca oxalate dihydrate 30 % (.); Ca oxalate monohydr 70 % (.); Size 2x2 mm (.)
== END 2021-12-03 15:12 | disposition home or self-care (01) ==
PROVIDERS: PCP Student in an Organized Health Care Education/Training Program; Referring Provider Specialist; Visit Provider Specialist
PROC: 0TF78ZZ Fragmentation in Left Ureter, Via Natural or Artificial Opening Endoscopic (ICD-10-PCS; CPT 52353; principal; 2021-12-03 10:45)
DX: N20.0 Calculus of kidney (principal); Z96.0 Presence of urogenital implants; N40.0 Benign prostatic hyperplasia without lower urinary tract symptoms; E11.9 Type 2 diabetes mellitus without complications; Z79.84 Long term (current) use of oral hypoglycemic drugs; E66.9 Obesity, unspecified; I10 Essential (primary) hypertension; G60.0 Hereditary motor and sensory neuropathy
CPT/HCPCS: 52356; 74018; 76000; 82365; 82962; J0131; J3010

== ENCOUNTER → 2021-12-18 10:08 | Outpatient (CLI) | payer MEDICARE, SELFPAY ==
[2021-10-17 15:58] VITALS: BMI 29.0
--- NOTE | 2021-12-18 10:25 | DI.CT.S_ITS ---
PROCEDURE: CT KIDNEY URETER BLADDER (KUB) INDICATIONS: Kidney stones TECHNIQUE: Axial sections were acquired from the lung bases to the pubic symphysis. Coronal and sagittal reformats were performed. For radiation dose reduction, the following was used: automated exposure control, adjustment of mA and/or kV according to patient size. COMPARISON: [facility], CT, CT KIDNEY URETER BLADDER (KUB), 11/15/2021, 8:05. FINDINGS: Image quality: Excellent. Lung bases: Unremarkable. Heart: No significant findings. URINARY: Right Kidney: Nonobstructing right upper pole renal stone is again seen now measures 8 x 4 mm in size and 528 Hounsfield unit in density. A few 1-2 mm nonobstructing stones are also seen scattered in right renal parenchyma. No obstructing renal stones or hydronephrosis. Right Ureter: No hydroureter. Left Kidney: A left-sided ureteral stent is seen. No left-sided renal stone is seen on the current study. Previously noted 1.1 x 0.6 x 0.7 cm stone is no longer seen suggestive of interval removal. No left-sided hydronephrosis. Left Ureter: No hydroureter. Bladder: Mild diffuse bladder wall thickening is noted. No discrete bladder wall mass. No calcified bladder stones. ABDOMEN: Liver: Unremarkable. Gallbladder: Within normal limits Biliary ducts: Unremarkable. Pancreas: Unremarkable. Spleen: Unremarkable. Adrenal Glands: Unremarkable. Stomach and Bowel: There is prior right hemicolectomy with postsurgical changes and numerous surgical clips. No bowel obstruction or abnormal bowel wall thickening. No mesenteric fat stranding. No abscess collection. Sigmoid diverticulosis is seen without CT evidence of acute diverticulitis. Peritoneum: No abnormal intraperitoneal fluid. No free air. Ventral Wall: Previously described ventral rectus diastasis is again seen unchanged from prior study. Abdominal Nodes: No enlarged retroperitoneal or mesenteric lymph nodes. Vessels: Aorta and inferior vena cava are normal in size. Moderate atherosclerotic calcifications. PELVIS: Pelvic Organs: Enlarged prostate gland is again seen with mass effect on floor of urinary bladder.. Pelvic Nodes: Unremarkable. Miscellaneous: No inguinal hernias are seen. Bones: No suspicious bony lesion. Osteoarthritic changes throughout bony pelvis is seen. Degenerative disc disease throughout lower thoracic and lumbar spine is also noted. IMPRESSION: 1. Stable appearing nonobstructing right upper pole renal stone as above. Additional tiny punctate calcifications also seen in right renal parenchyma. No hydronephrosis or hydroureter. 2. Interval removal of previously noted left-sided renal stone with placement of a left-sided ureteral stent. No left-sided hydronephrosis or hydroureter. 3. Enlarged prostate gland with mass effect on floor of urinary bladder. No discrete bladder wall mass. Mild diffuse bladder wall thickening. 4. Prior right hemicolectomy. No bowel obstruction or abnormal bowel wall thickening. Colonic diverticulosis without evidence of acute diverticulitis. No free fluid or free air. Dictated by: Leon Stapleton M.D. on 12/18/2021 at 11:56 Approved by: Leon Stapleton M.D. on 12/18/2021 at 12:08
== END ==
PROVIDERS: PCP Student in an Organized Health Care Education/Training Program; Referring Provider Specialist; Visit Provider Specialist
DX: N40.0 Benign prostatic hyperplasia without lower urinary tract symptoms (principal); N20.0 Calculus of kidney; Z96.0 Presence of urogenital implants; Z90.49 Acquired absence of other specified parts of digestive tract
CPT/HCPCS: 74176

== ENCOUNTER → 2022-01-15 10:08 | Outpatient (CLI) | payer MEDICARE, SELFPAY ==
[2021-10-17 15:58] VITALS: BMI 29.0
== END ==
PROVIDERS: PCP Student in an Organized Health Care Education/Training Program; Visit Provider Specialist
DX: R30.0 Dysuria (principal); N20.0 Calculus of kidney; Z96.0 Presence of urogenital implants; Z87.442 Personal history of urinary calculi
CPT/HCPCS: 52310; 87086; 99214

== ENCOUNTER → 2022-02-20 12:00 | Outpatient (CLI) | payer MEDICARE, SELFPAY ==
[2021-10-17 15:58] VITALS: BMI 29.0
--- NOTE | 2022-02-20 12:01 | DI.RAD.S_ITS ---
PROCEDURE: XR KUB INDICATIONS: calculus of right kidney TECHNIQUE: One view of the abdomen acquired. COMPARISON: [facility], CT, CT KIDNEY URETER BLADDER (KUB), 12/18/2021, 10:17. [facility], CR, XR KUB, 12/03/2021, 9:32. FINDINGS: Surgical changes and devices: Surgical clips are seen projecting over the right abdomen. Left ureteral stent has been removed. Bowel: Bowel gas pattern is normal. Soft tissues: Small calcifications are seen projecting over the right kidney, although findings are partially obscured by overlying bowel gas. Visualized solid organ contours appear normal in size. Bones: No suspicious bony lesions. Degenerative changes are seen in the spine. IMPRESSION: Right renal calculi are likely not significantly changed when compared to the CT from 12/18/2021, although findings are obscured by overlying bowel gas. Dictated by: Abel Hitchcock M.D. on 02/20/2022 at 14:12 Approved by: Abel Hitchcock M.D. on 02/20/2022 at 14:16
[2022-02-20 13:00] LABS: Calcium 9.2 mg/dL (8.4-10.2)
[2022-02-22 08:34] LABS: Parathyroid Hormone Int 47 pg/mL (15-65)
== END ==
PROVIDERS: PCP Student in an Organized Health Care Education/Training Program; Referring Provider Specialist; Visit Provider Specialist
DX: N20.0 Calculus of kidney (principal)
CPT/HCPCS: 36415; 74018; 82310; 83970; 84550

== ENCOUNTER 2022-03-23 00:33 | Emergency (ER) | payer MEDICARE, SELFPAY ==
[2021-10-17 15:58] VITALS: BMI 29.0
--- NOTE | 2022-03-23 00:39 | ED_ITS ---
HPI - Male Genitourinary General Chief complaint: Back Pain/Injury Stated complaint: KIDNEY STONES Time Seen by Provider: 03/23/22 00:38 History of Present Illness HPI Narrative: 76-year-old male former smoker with history of iron deficiency anemia, colon cancer, type 2 diabetes, Charcot Yolande tooth and prior kidney stone presents with his in the chief complaint of intense right flank pain that wraps around his right side that started this afternoon. He denies any obvious provo cation or palliation. He states it feels like prior stones. He is nauseated but denies any vomiting. He is had no fever or chills. He denies any change in urinary or bowel habits. He had recently been seen and evaluated by Urology and earlier this year had a stone on the left side removed surgeon clear. At the time it was noted that he had a stone on the right side but to this point they have elected to not intervene Related Data Previous Rx's Medication Instructions Recorded atenolol 50 mg tablet 50 mg PO DAILY #90 tabs 05/31/21 clopidogrel 75 mg tablet (Plavix) 75 mg PO DAILY #90 tabs 05/31/21 lisinopril 5 mg tablet 5 mg PO DAILY #90 tabs 05/31/21 atorvastatin 20 mg tablet (Lipitor) 20 mg PO BEDTIME #90 tabs 07/30/21 albuterol sulfate 90 mcg/actuation 1 puff inhalation Q6H PRN 08/30/21 aerosol inhaler (ProAir HFA) shortness of breath or wheezing #8.5 grams colchicine 0.6 mg tablet 0.6 mg PO DAILY #30 tabs 11/29/21 metformin 1,000 mg tablet 1,000 mg PO BID #180 tabs 12/10/21 alprazolam 0.5 mg tablet 0.5 mg PO DAILY #1 tab 12/20/21 ropinirole 4 mg tablet 8 mg PO BEDTIME #180 tabs 02/18/22 potassium citrate 10 mEq (1,080 10 meq PO TID #270 tabs 03/19/22 mg) tablet,extended release hydrocodone 5 mg-acetaminophen 325 1 tab PO Q4-6H PRN pain #10 tabs 03/23/22 mg tablet ketorolac 10 mg tablet 10 mg PO Q6H PRN pain #14 tabs 03/23/22 ondansetron 4 mg disintegrating 4 mg PO TID-QID PRN nausea and 03/23/22 tablet vomiting #10 tabs tamsulosin 0.4 mg capsule (Flomax) 0.4 mg PO DAILY #30 caps 03/23/22 Allergies Allergy/AdvReac Type Severity Reaction Status Date / Time No Known Drug Allergies Allergy Verified 03/19/22 13:33 Review of Systems Review of Systems Narrative: GENERAL: Denies chills, fatigue, malaise, fever, sweats. HEENT: Denies sinus pain, ear pain, sore throat, difficulty swallowing, dizziness. RESPIRATORY: Denies dyspnea, cough, wheezing, hemoptysis, sputum. CARDIOVASCULAR: Denies chest pain, palpitations, orthopnea, edema, GASTROINTESTINAL: Denies nausea, vomiting, abdominal pain, diarrhea, constipation, melena. : See HPI MUSCULOSKELETAL: denies weakness, joint pain, or bony pain SKIN: Denies rash, skin lesions, or other NEUROLOGIC: Denies weakness, headache, numbness, change in speech, confusion, seizures, incoordination. PSYCHIATRIC: No concerning psychosocial issues. 12 point review of systems is negative except for those stated above Patient History Medical History Arthritis Calculus of right kidney Calculus of right kidney Uicpvjt-Udlmp-Vymub disease Colon cancer Diabetes Diabetes mellitus treated with oral medication Hernia High blood pressure Hypertension, essential Kidney stones Mixed hyperlipidemia Peripheral vascular disease of extremity Sleep apnea in adult Surgical History Hx of cystoscopy (10/16/21) S/P ureteral stent placement Status post colectomy (~1995) Status post vascular bypass Family History Father Ulcer History of blood clots Mother No known problems Social History marital status: household members: spouse lives independently: Yes occupational status: other Smoking Status: Former smoker alcohol intake: current substance use type: does not use Type(s) of exercise: bicycling frequency: 1-2 times per week Smoking Status: Former smoker alcohol intake frequency: a few times a month Substance Use Type: does not use Exam Narrative Exam Narrative: GENERAL: [76] year old patient appears stated age. Well-developed patient, in mild distress. HEAD: Atraumatic. Normocephalic. EYES: Pupils equal round and reactive. Extraocular motions intact. No scleral icterus. No injection or drainage. ENT: Nose without bleeding, purulent drainage. Throat without erythema, tonsillar hypertrophy or exudate. Airway patent. NECK: Trachea midline. Non tender CARDIOVASCULAR: Regular rate and rhythm without murmurs, gallops, or rubs. RESPIRATORY: Clear to auscultation. Breath sounds equal bilaterally. No wheezes, rales, or rhonchi. GASTROINTESTINAL: Abdomen soft, non-tender, nondistended. EXTREMITIES: No edema or joint tenderness. BACK: Nontender without deformity or crepitance. No flank tenderness. NEURO: AOx3. SKIN: No rash or erythema of visible areas Initial Vital Signs Initial Vital Signs: Vital Signs Blood Pressure 188/113 H 03/23/22 00:40 Course Orders Ordered: Discontinued Medications Hydrocodone Bitart/Acetaminophen (Hydrocodone/Acet 5/325 Prepack) 1 bottle MISC SEEINSTR ONE Stop: 03/23/22 02:17 Last Admin: 03/23/22 02:24 Dose: 1 bottle Documented By: LAUREN Hydromorphone HCl (Hydromorphone 0.5 Mg Inj) 0.5 mg IV NOW ONE Stop: 03/23/22 00:50 Last Admin: 03/23/22 00:53 Dose: 0.5 mg Documented By: KENNEDY Hydromorphone HCl (Hydromorphone 0.5 Mg Inj) 0.5 mg IV NOW ONE Stop: 03/23/22 02:50 Last Admin: 03/23/22 02:53 Dose: 0.5 mg Documented By: LAUREN Sodium Chloride (Normal Saline 0.9%) 1,000 mls @ 1,000 mls/hr IV BOLUS ONE Stop: 03/23/22 03:42 Last Infusion: 03/23/22 03:58 Dose: 0 mls/hr Documented By: Admin: 03/23/22 02:50 Dose: 1,000 mls/hr Documented By: LAUREN Ketorolac Tromethamine (Ketorolac 30 Mg/Ml Vial) 15 mg IV NOW ONE Stop: 03/23/22 00:50 Last Admin: 03/23/22 00:53 Dose: 15 mg Documented By: KENNEDY Ondansetron HCl (Ondansetron 4 Mg/2 Ml Inj) 4 mg IV NOW ONE Stop: 03/23/22 00:50 Last Admin: 03/23/22 00:53 Dose: 4 mg Documented By: KENNEDY Ondansetron HCl (Ondansetron 4 Mg Odt Prepack) 1 bottle MISC SEEINSTR ONE Stop: 03/23/22 02:17 Last Admin: 03/23/22 02:24 Dose: 1 bottle Documented By: LAUREN Tamsulosin HCl (Tamsulosin 0.4 Mg Capsule) 0.4 mg PO NOW ONE Stop: 03/23/22 02:17 Last Admin: 03/23/22 02:24 Dose: 0.4 mg Documented By: LAUREN Reevaluation(s) Reevaluation #1: Significant improvement in patient's pain with above-stated therapies, down to 1/10 Vital Signs Vital signs: Vital Signs - 8 hr 03/23/22 00:41 03/23/22 00:40 03/23/22 00:41 Temperature 97.2 F L Pulse Rate 88 85 Respiratory Rate 18 Blood Pressure 188/113 H 188/113 H Pulse Oximetry 97 97 Oxygen Delivery Method Room Air 03/23/22 01:00 Temperature Pulse Rate 85 Respiratory Rate Blood Pressure Pulse Oximetry 96 Oxygen Delivery Method MDM - Male Genitourinary Lab Data Result diagrams: 03/23/22 00:48 03/23/22 00:48 Labs: Lab Results 03/23/22 03/23/22 Range/Units 00:48 00:48 WBC 8.6 (4.5-11.0) X10^3/uL RBC 4.54 (4.5-5.9) X10^6/uL Hgb 13.8 (13.5-17.5) g/dL Hct 41.2 (41-53) % MCV 90.8 (80-100) fL MCH 30.3 (26-34) PG MCHC 33.4 (30-36) % RDW 14.3 (11.6-14.8) % Plt Count 175 (150-400) X10^3/uL Neut % (Auto) 79.6 H (50-75) % Lymph % (Auto) 13.5 L (25-40) % [place] % (Auto) 5.5 (3-14) % Eos % (Auto) 1.0 L (2-4) % Baso % (Auto) 0.4 (0-2) % Neut # (Auto) 6900 (8690-9138) /uL Lymph # (Auto) 1200 (0714-6618) /uL [place] # (Auto) 500 (0-900) /uL Eos # (Auto) 100 (0-450) /uL Baso # (Auto) 0 (0-100) /uL Sodium 134 L (137-145) mmol/L Potassium 5.0 (3.4-5.1) mmol/L Chloride 106 (98-107) mmol/L Carbon Dioxide 19 L (22-32) mmol/L BUN 21 H (9-20) mg/dL Creatinine 1.02 (0.66-1.25) mg/dL Estimated GFR > 60 (>60) mL/min BUN/Creatinine Ratio 20.6 (6-22) Glucose 190 H (80-110) mg/dL Calcium 8.9 (8.4-10.2) mg/dL Urine Dip Bedside Urine Glucose Negative Bedside Urine Bilirubin - Negative Bedside Urine Ketone - Negative Urine Specific [place] 1.025 Bedside Urine Occult Blood +++ Bedside Urine pH 6.0 Bedside Urine Protein + 30 Bedside Urine Urobilinogen 0.2 Bedside Urine Nitrite - Negative Bedside Urine Leukocytes - Negative Esterase Imaging Data CT scan - abdomen/pelvis: Radiologist's Impression: Close Abdomen/Pelvis CT (Signed) Chaya Pugh - 03/23/22 KUB X-Ray (Signed) Chaya Pugh - 03/23/22 Launch?[place] [address] CT Scan Report Signed Patient: Shantanu Underwood MR#: [id number] : 1945 Acct:[id number] Age/Sex: 76 / M Date of Service: 03/23/22 Loc: ED Accession Number: [id number] ?? Procedure: CT kidney ureter bladder (KUB) Ordering Provider: Barrington Sepulveda D.O. PROCEDURE:? CT KIDNEY URETER BLADDER (KUB) ? INDICATIONS:? severe R flank pain ? TECHNIQUE:? Axial sections were acquired from the lung bases to the pubic symphysis.? Coronal and sagittal reformats were performed.? For radiation dose reduction, the following was used: ?automated exposure control, adjustment of mA and/or kV according to patient size.? ? COMPARISON:? [facility], CT, CT KIDNEY URETER BLADDER (KUB), 12/18/2021, 10:17. ? FINDINGS:? Image quality:? Excellent.? ? Lung bases:? Left hemidiaphragm elevation.? Mild bibasilar atelectatic changes. Heart:? No significant findings. ? URINARY: Right Kidney:? Moderate to severe right hydronephrosis.? There are a few punctate calcifications in upper pole calices and the largest calcification in the mid to lower pole calyx measuring 6 mm with Hounsfield units of 527. There is prominent perinephric stranding throughout the pararenal space.? Right Ureter:? Along the inferior right perianal space near the level of the proximal ureter, there are numerous surgical clips creating beam hardening artifact.? Despite this, hydroureter is seen.? There is an obstructing mid ureteral calculus measuring 7 mm in length with Hounsfield units of 436. This is seen at the level of the iliac crests.? Distally, the ureter is normal caliber.? ? Left Kidney: ? No stones or hydronephrosis. Left Ureter:? No hydroureter.? ? Bladder:? Normal wall thickness. No stones. ? ? ? ABDOMEN: Liver:? No masses. Gallbladder:? Normal. Biliary ducts:? Nondilated. Pancreas:? Normal. Spleen:? Normal size. Adrenal Glands:? No nodules. ? Stomach and Bowel:? There are few small bowel loops demonstrating mild dilatation and air-fluid levels particularly in the left upper quadrant.? Are several air- filled small bowel loops in the anterior low pelvis with alternating segments mild small bowel wall thickening.? This may be secondary to peristalsis.? Surgical changes of right hemicolectomy.? Diverticulosis of the descending and sigmoid colon. Peritoneum:? No abnormal intraperitoneal fluid.? No free air.? ? Ventral Wall:? There is a wide necked rectus diastasis.? No abdominal wall hernia. Abdominal Nodes:? No adenopathy. Vessels:? Aorta and inferior vena cava are normal in size.? Moderate abdominal aortic atherosclerotic calcification.? ? PELVIS: Pelvic Organs:? Moderate prostatomegaly Pelvic Nodes: Unremarkable. Miscellaneous:? Small fat containing left inguinal hernia. ? Bones:? Unremarkable. ? IMPRESSION:? ? 1. 7 mm obstructing right mid ureteral calculus. ? 2. Severe right hydronephrosis and moderate perinephric inflammation. ? 3. Several retained stones in the right kidney, the largest measuring 6 mm. ? 4. Mild small bowel dilatation suggestive ileus, potentially reactive to obstructive retroperitoneal process.? Dictated by: Chaya Pugh M.D. on 03/23/2022 at 1:56 ? ? Approved by: Chaya Pugh M.D. on 03/23/2022 at 2:02 ? MDM Narrative Medical decision making narrative: Patient with known history of kidney stones and a very reassuring history and physical exam. He has a stone noted on imaging but no evidence of sepsis, infection or renal failure. Pain is well controlled and he is tolerating orals. Return precautions discussed and questions answered Discharge Plan Departure Patient Disposition: Home Clinical Impression: Kidney stone on right side Instructions: Kidney Stones -- Adult Activity Restrictions/Additional Instructions: *You have been diagnosed with [7 mm right-sided kidney stone] *What to do: *Please continue to take your regular medications as directed. [x ] New medication prescriptions sent to your pharmacy: [[facility] ] [ ] New medication written as a paper prescription [ ] No new medications given *Please follow up with your urologist, call for an appointment. Let them know you were seen in the Emergency Department and that we ask that you be seen in follow up. We will electronically transmit a record of today's note *Return to Emergency Department if you should have any new, worsening or concerning symptoms, such as [fever greater than 101 F, shaking chills, worsen ing pain, persistent vomiting or other bothersome symptoms] You have been prescribed a short course of narcotic medications. These are potentially dangerous and addictive medications that should be used carefully. While on these medications you cannot drive or operate heavy machinery. Additionally, you cannot sign legal documents or perform any duties such as this. Many people get constipated on narcotic medications so it would be advisable to discuss stool softeners with the pharmacist when you orange picker your prescription. Please understand that we cannot provide further refills of narcotics or controlled substances through the ED and your pain management will need to be through your Primary Care Provider Prescriptions: New hydrocodone-acetaminophen 5-325 mg tablet 1 tab PO Q4-6H PRN (Reason: pain) Qty: 10 0RF ketorolac 10 mg tablet 10 mg PO Q6H PRN (Reason: pain) Qty: 14 0RF tamsulosin [Flomax] 0.4 mg capsule 0.4 mg PO DAILY Qty: 30 0RF ondansetron 4 mg tablet,disintegrating 4 mg PO TID-QID PRN (Reason: nausea and vomiting) Qty: 10 0RF No Action clopidogrel [Plavix] 75 mg tablet 75 mg PO DAILY Qty: 90 3RF lisinopril 5 mg tablet 5 mg PO DAILY Qty: 90 3RF atenolol 50 mg tablet 50 mg PO DAILY Qty: 90 3RF atorvastatin [Lipitor] 20 mg tablet 20 mg PO BEDTIME Qty: 90 2RF ProAir HFA 90 mcg/actuation HFA aerosol inhaler 1 puff INHALATION Q6H PRN (Reason: shortness of breath or wheezing) Qty: 8.5 11RF metformin 1,000 mg tablet 1,000 mg PO BID Qty: 180 1RF ropinirole 4 mg tablet 8 mg PO BEDTIME Qty: 180 2RF Rx Instructions: administer 1-3 hours before bedtime colchicine 0.6 mg tablet 0.6 mg PO DAILY Qty: 30 1RF Rx Instructions: 2 tabs with first sign of flare, 1 tab one hour later. No more than 3 tabs in 24 hrs alprazolam 0.5 mg tablet 0.5 mg PO DAILY Qty: 1 0RF Rx Instructions: Take tablet 1 hour before scheduled procedure as directed. potassium citrate 10 mEq (1,080 mg) tablet extended release 10 meq PO TID Qty: 270 3RF Referrals: Dmitry Ferguson MD [Primary Care Provider] - Branod Cowan MD [Physician] - Visit Report Forms: Patient Portal/API
[2022-03-23 00:40] VITALS: BP 188/113
[2022-03-23 00:41] VITALS: BP 188/113; PULSE 85; PULSE 88; RESP 18; TEMP 36.2; O2SAT 97; BMI 29.0
--- NOTE | 2022-03-23 00:50 | DI.RAD.S_ITS ---
PROCEDURE: XR KUB INDICATIONS: R flank pain, known 7mm stone TECHNIQUE: One view of the abdomen acquired. COMPARISON: [facility], CR, XR KUB, 02/20/2022, 12:13. FINDINGS: Surgical changes and devices: Several surgical clips in the right abdomen. A few surgical clips in the left inguinal region. Bowel: There is a single short segment of dilated small bowel in the central abdomen. Otherwise there is a paucity of small bowel gas. The colon is normal caliber. Soft tissues: No suspicious abdominal calcifications. Visualized solid organ contours appear normal in size. Bones: No suspicious bony lesions. IMPRESSION: Nonspecific bowel gas pattern. Dictated by: Chaya Pugh M.D. on 03/23/2022 at 1:12 Approved by: Chaya Pugh M.D. on 03/23/2022 at 1:14
[2022-03-23] MEDS: ONDANSETRON 4 MG/2 ML INJ IV (00:53)
[2022-03-23] MEDS: KETOROLAC 30 MG/ML VIAL 15 MG IV (00:53)
[2022-03-23] MEDS: HYDROMORPHONE 0.5 MG INJ IV ×2 (00:53→02:53)
[2022-03-23 01:00] VITALS: PULSE 85; O2SAT 96
[2022-03-23 01:09] LABS: Add Manual Diff / Slide Review NO; Basophils Absolute Auto 0 /uL (0-100); Basophils Percent Auto 0.4 % (0-2); Eosinophils Absolute Auto 100 /uL (0-450); Hematocrit 41.2 % (41-53); Hemoglobin 13.8 g/dL (13.5-17.5); Lymphocytes Absolute Auto 1200 /uL (1100-4500); Lymphocytes Percent Auto 13.5 % (25-40); Mean Corpuscular HGB Conc 33.4 % (30-36); Mean Corpuscular Hemoglobin 30.3 PG (26-34); Mean Corpuscular Volume 90.8 fL (80-100); Monocytes Absolute Auto 500 /uL (0-900); Monocytes Percent Auto 5.5 % (3-14); Neutrophils Absolute Auto 6900 /uL (1500-7000); Neutrophils Percent Auto 79.6 % (50-75); Platelet Count 175 X10^3/uL (150-400); Red Blood Cell Count 4.54 X10^6/uL (4.5-5.9); Red Cell Distribution Width 14.3 % (11.6-14.8); White Blood Cell Count 8.6 X10^3/uL (4.5-11.0)
[2022-03-23 01:11] LABS: BUN Creatinine Ratio 20.6 (6-22); Blood Urea Nitrogen 21 mg/dL (9-20); Calcium 8.9 mg/dL (8.4-10.2); Carbon Dioxide 19 mmol/L (22-32); Chloride 106 mmol/L (98-107); Estimated Glomerular Filt Rate > 60 mL/min (>60); Glucose 190 mg/dL (80-110); HEMOLYSIS 41 (0-50); Sodium 134 mmol/L (137-145)
--- NOTE | 2022-03-23 01:22 | DI.CT.S_ITS ---
PROCEDURE: CT KIDNEY URETER BLADDER (KUB) INDICATIONS: severe R flank pain TECHNIQUE: Axial sections were acquired from the lung bases to the pubic symphysis. Coronal and sagittal reformats were performed. For radiation dose reduction, the following was used: automated exposure control, adjustment of mA and/or kV according to patient size. COMPARISON: [facility], CT, CT KIDNEY URETER BLADDER (KUB), 12/18/2021, 10:17. FINDINGS: Image quality: Excellent. Lung bases: Left hemidiaphragm elevation. Mild bibasilar atelectatic changes. Heart: No significant findings. URINARY: Right Kidney: Moderate to severe right hydronephrosis. There are a few punctate calcifications in upper pole calices and the largest calcification in the mid to lower pole calyx measuring 6 mm with Hounsfield units of 527. There is prominent perinephric stranding throughout the pararenal space. Right Ureter: Along the inferior right perianal space near the level of the proximal ureter, there are numerous surgical clips creating beam hardening artifact. Despite this, hydroureter is seen. There is an obstructing mid ureteral calculus measuring 7 mm in length with Hounsfield units of 436. This is seen at the level of the iliac crests. Distally, the ureter is normal caliber. Left Kidney: No stones or hydronephrosis. Left Ureter: No hydroureter. Bladder: Normal wall thickness. No stones. ABDOMEN: Liver: No masses. Gallbladder: Normal. Biliary ducts: Nondilated. Pancreas: Normal. Spleen: Normal size. Adrenal Glands: No nodules. Stomach and Bowel: There are few small bowel loops demonstrating mild dilatation and air-fluid levels particularly in the left upper quadrant. Are several air-filled small bowel loops in the anterior low pelvis with alternating segments mild small bowel wall thickening. This may be secondary to peristalsis. Surgical changes of right hemicolectomy. Diverticulosis of the descending and sigmoid colon. Peritoneum: No abnormal intraperitoneal fluid. No free air. Ventral Wall: There is a wide necked rectus diastasis. No abdominal wall hernia. Abdominal Nodes: No adenopathy. Vessels: Aorta and inferior vena cava are normal in size. Moderate abdominal aortic atherosclerotic calcification. PELVIS: Pelvic Organs: Moderate prostatomegaly Pelvic Nodes: Unremarkable. Miscellaneous: Small fat containing left inguinal hernia. Bones: Unremarkable. IMPRESSION: 1. 7 mm obstructing right mid ureteral calculus. 2. Severe right hydronephrosis and moderate perinephric inflammation. 3. Several retained stones in the right kidney, the largest measuring 6 mm. 4. Mild small bowel dilatation suggestive ileus, potentially reactive to obstructive retroperitoneal process. Dictated by: Chaya uPgh M.D. on 03/23/2022 at 1:56 Approved by: Chaya Pugh M.D. on 03/23/2022 at 2:02
[2022-03-23 01:30] VITALS: BP 158/81; PULSE 88; O2SAT 93
[2022-03-23 02:00] VITALS: BP 151/78; PULSE 84; O2SAT 97
[2022-03-23] MEDS: ONDANSETRON 4 MG ODT PREPACK 1 BOTTLE MISC (02:24)
[2022-03-23] MEDS: TAMSULOSIN 0.4 MG CAPSULE PO (02:24)
[2022-03-23] MEDS: HYDROCODONE/ACET 5/325 PREPACK 1 BOTTLE MISC (02:24)
[2022-03-23] MEDS: SODIUM CHLORIDE 0.9% 1,000 ML 1000 ML IV (02:50)
[2022-03-23 03:59] VITALS: BP 150/70; PULSE 76; RESP 18; O2SAT 98
== END 2022-03-23 04:01 | disposition home or self-care (01) ==
PROVIDERS: Emergency Provider Emergency Medicine; PCP Student in an Organized Health Care Education/Training Program
DX: N20.0 Calculus of kidney (principal); Z87.442 Personal history of urinary calculi
CPT/HCPCS: 36415; 74018; 74176; 80048; 81003; 85025; 96361; 96374; 96375; 96376; 99284; J1170; J1885; J2405

== ENCOUNTER 2022-03-25 09:01 | Day surgery (SDC) | payer MEDICARE, SELFPAY ==
[2021-10-17 15:58] VITALS: BMI 29.0
--- NOTE | 2022-03-25 | DI.RAD.S_ITS ---
PROCEDURE: XR ABDOMEN 1V INDICATIONS: RT STENT PLACEMENT TECHNIQUE: One view of the abdomen acquired. COMPARISON: [facility], CR, XR ABDOMEN 1V, 10/16/2021, 17:48. FINDINGS: Intraoperative fluoroscopic views demonstrate placement of a right ureteral stent. IMPRESSION: Intraoperative fluoroscopic views demonstrating placement of a right nephroureteral stent. Dictated by: Neil Adams M.D. on 03/25/2022 at 14:35 Approved by: Neil Adams M.D. on 03/25/2022 at 14:36
[2022-03-25 09:39] VITALS: BP 130/75; PULSE 84; RESP 16; TEMP 36.9; O2SAT 93
[2022-03-25 09:40] VITALS: BMI 29.0
[2022-03-25 09:43] LABS: COVID19 -Nasal RAPID Negative (Negative)
[2022-03-25] MEDS: LACTATED RINGERS 1,000 ML 100 ML IV (09:51)
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
--- NOTE | 2022-03-25 11:01 | PM.PREOP ---
Pre-operative Note COVID-19 Criteria for continued procedure: Expected advancement of disease process, Possibility delay results in more complex future surgery or treatment, Increased loss of function, Continuing or worsening of significant or severe pain, Delay expected to result in less-positive ultimate med/surg outcome and Non-surgical alternatives not available or appropriate per current SOC Interval Note History & Physical reviewed/Exam performed by Physician: Yes Changes to H&P: No
[2022-03-25] MEDS: CEFAZOLIN 2 GM/100 ML PREMIX 100 ML IV (11:16)
--- NOTE | 2022-03-25 11:43 | SUR.OPER ---
Lithotomy on padded OR bed, head on pillow, arms secured on padded arm boards at <90 degrees abduction. Legs secured in padded yellow fins stirrups.
[2022-03-25] MEDS: IOPAMIDOL 50 ML VIAL INJ (11:48)
--- NOTE | 2022-03-25 11:50 | PM.OP.1 ---
Operative Date/Time/Diagnoses Date of procedure: 03/25/22 Time of procedure: 11:50 Pre-op diagnosis: 1. 7 mm obstructing right mid ureteral calculus. 2. History right renal colic. 3. Multiple right renal calculi. 4. History of recurrent nephrolithiasis. Post-op diagnosis: same Procedure & Clinicians Procedure: 1. Cystoscopy/right retrograde pyelogram. 2. Cystoscopy/placement right ureteral stent (7 [place] by 22-32 cm multi-length). Same procedure as scheduled: Yes Indications: 1. Obstructing 7 mm right mid ureteral calculus. 2. Right renal colic. 3. Multiple right renal calculi. 4. History of recurrent nephrolithiasis. Surgeon: Brando Cowan Click Yes if Unassisted: Yes Anesthesia Type: General Operative Notes Findings: 1. Urethra-normal caliber without annular stricture or lesion. 2. External sphincter coapted with normal overlying urothelium. 3. 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 4. Bladder-1+ trabeculation. Normal ureteral orifices bilaterally. No evidence of stone, diverticulum or tumor. Closure Type: not applicable Specimen(s): none sent Applied: other (Seven [place] by 22-32 cm multi-length.) Estimated Blood Loss (mL): 0 Blood products transfused: none Procedure in detail: The patient was positioned in supine administered general anesthesia. Lower abdomen, genitalia, and groin then prepped and draped in sterile fashion. The 22 [place] panendoscope was then passed the lower urinary tract with the findings as described above. A 0.35 hybrid guidewire was then advanced into the working channel of the panendoscope and then advanced proximally into the right collecting system under direct and fluoroscopic guidance. However, the stent could not be passed beyond the stone. A 5 [place] pollock catheter was advanced over the wire up to the level of wire deflection. The wire was then backloaded out of the open-ended [place] catheter and a retrograde pyelogram was performed with findings of a tortuous proximal and dilated proximal ureter and intrarenal collecting system. The hybrid wire was then passed through the lumen of the 5 [place] pollock catheter and advanced proximally. Under fluoroscopic guidance the catheter and wire were repositioned and manipulated multiple times finally resulting in successful passage of the wire into the proximal collecting system. The 5 [place] pollock catheter was then backloaded off the hybrid guidewire. A 7 [place] by 22-32 cm multi-length ureteral stent was then selected. Was over the hybrid guidewire under direct and fluoroscopic guidance. NO RETRIEVAL LINE WAS LEFT ATTACHED. The bladder was then drained completely, all instrumentation was removed. The patient was then repositioned supine, was awakened, transferred to [facility] and transported to PACU in stable condition. Complications: none Post-operative Condition: stable Disposition: PACU Plan for aftercare: Discharge home.
[2022-03-25 12:07] VITALS: BP 112/63; PULSE 98; RESP 16; TEMP 36.6; O2SAT 98
[2022-03-25 12:10] VITALS: BP 106/78; PULSE 86; RESP 16; O2SAT 94
[2022-03-25 12:20] VITALS: BP 106/78; PULSE 63; RESP 16; TEMP 36.8; O2SAT 98
[2022-03-25 12:35] VITALS: BP 140/78; PULSE 82; RESP 16; TEMP 36.8; O2SAT 93
== END 2022-03-25 12:40 | disposition home or self-care (01) ==
PROVIDERS: PCP Student in an Organized Health Care Education/Training Program; Referring Provider Specialist; Visit Provider Specialist
PROC: (CPT 52332; principal; 2022-03-25 11:30)
DX: N20.2 Calculus of kidney with calculus of ureter (principal); N40.0 Benign prostatic hyperplasia without lower urinary tract symptoms; N32.89 Other specified disorders of bladder; E11.22 Type 2 diabetes mellitus with diabetic chronic kidney disease; I12.9 Hypertensive chronic kidney disease with stage 1 through stage 4 chronic kidney disease, or unspecified chronic kidney disease; N18.9 Chronic kidney disease, unspecified; E78.2 Mixed hyperlipidemia; G47.33 Obstructive sleep apnea (adult) (pediatric); I73.9 Peripheral vascular disease, unspecified; J45.909 Unspecified asthma, uncomplicated; G60.0 Hereditary motor and sensory neuropathy; Z79.84 Long term (current) use of oral hypoglycemic drugs; Z85.038 Personal history of other malignant neoplasm of large intestine; Z20.822 Contact with and (suspected) exposure to COVID-19; Z87.442 Personal history of urinary calculi; Z87.891 Personal history of nicotine dependence
CPT/HCPCS: 52332; 74018; 76000; 87635; C9803; J0690; J2405; J2704; J3010

== ENCOUNTER → 2022-04-12 10:42 | Outpatient (CLI) | payer MEDICARE, SELFPAY ==
[2021-10-17 15:58] VITALS: BMI 29.0
[2022-04-12 11:10] LABS: COVID19 -Nasal RAPID Negative (Negative)
== END ==
PROVIDERS: PCP Student in an Organized Health Care Education/Training Program; Visit Provider Specialist
DX: Z20.822 Contact with and (suspected) exposure to COVID-19 (principal)
CPT/HCPCS: 87635; C9803

== ENCOUNTER 2022-04-15 09:28 | Day surgery (SDC) | payer MEDICARE, SELFPAY ==
[2021-10-17 15:58] VITALS: BMI 29.0
[2022-04-15] VITALS (7 sets, daily range): BP systolic 106–161; BP diastolic 64–93; PULSE 78–89; RESP 16–18; TEMP 36.1–36.4; O2SAT 92–99; BMI 29.0
[2022-04-15] MEDS: LACTATED RINGERS 1,000 ML 42 ML IV ×2 (10:02→13:26)
[2022-04-15] MEDS: ACETAMINOPHEN IV 1,000 MG/100 ML VIAL 400 MG IV (10:16)
--- NOTE | 2022-04-15 11:22 | PM.PREOP ---
Pre-operative Note COVID-19 Criteria for continued procedure: Expected advancement of disease process, Possibility delay results in more complex future surgery or treatment, Continuing or worsening of significant or severe pain, Deterioration of the patient's condition or overall health, Delay expected to result in less-positive ultimate med/surg outcome and Non-surgical alternatives not available or appropriate per current SOC Interval Note History & Physical reviewed/Exam performed by Physician: Yes Changes to H&P: No
[2022-04-15] MEDS: CEFAZOLIN 2 GM/100 ML PREMIX 100 ML IV (12:10)
--- NOTE | 2022-04-15 12:20 | SUR.OPER ---
Lithotomy on padded OR bed, head on pillow, arms secured on padded arm boards at <90 degrees abduction. Legs secured in padded yellow fins stirrups.
[2022-04-15] MEDS: IOPAMIDOL 50 ML VIAL INJ (12:49)
--- NOTE | 2022-04-15 13:58 | PM.OP.1 ---
Operative Date/Time/Diagnoses Date of procedure: 04/15/22 Time of procedure: 13:40 Pre-op diagnosis: 1. Obstructing 6 mm left mid ureteral calculus. 2. Multiple right renal calculi. 3. Retained right ureteral stent. Post-op diagnosis: same Procedure & Clinicians Procedure: 1. Cystoscopy/right ureteral stent removal. 2. Cystoscopy/right retrograde pyelogram. 3. Cystoscopy/right ureteroscopic ureteral laser lithotripsy. 4. Cystoscopy/right ureteroscopic intrarenal laser lithotripsy. 5. Cystoscopy/placement right ureteral stent (6 [place] by 22-32 cm multi-length). Same procedure as scheduled: Yes Indications: 1. Obstructing 6 mm right mid ureteral calculus. 2. Multiple right renal calculi. 3. Retained right ureteral stent. Surgeon: Brando Cowan Click Yes if Unassisted: Yes Anesthesia Type: General Operative Notes Findings: 1. Urethra-normal caliber penile segment. The bulbar segment as at least 3 annular strictures that were easily negotiated with a 22 [place] rigid panendoscope. 2. External sphincter-intact with normal overlying urothelium. 3. Prostate-4.5+ with moderately obstructing lateral lobes and high median bar. 4. Bladder-2+ trabeculation with cellule formation. Normal position bilateral ureteral orifices. The right ureteral orifice has an intact right ureteral stent emanating from within. 5. Right ureter-index calculus was repositioned into the distal segment just above the ureterovesical junction following removal of the indwelling retained ureteral stent. 6. Right kidney-the index calculus was treated successfully. Three additional calculi measuring up to 4 mm were also treated with the laser. Closure Type: not applicable Specimen(s): none sent Applied: other (Six [place] by 22-32 cm multi-length.) Estimated Blood Loss (mL): 0 Blood products transfused: none Procedure in detail: Patient was positioned supine was administered general anesthesia. He was then repositioned in semi lithotomy and the lower abdomen, genitalia, and groin were then prepped and draped in sterile fashion. The 22 [place] panendoscope was then passed lower urinary tract with the findings as described above. A foreign body grasper was then utilized to engage the distal end of the indwelling right ureteral stent and withdrawn to bring the distal portion just distal to the urethral meatus. A 0.35 hybrid wire was then advanced through the lumen of the ureteral stent and advanced proximally under fluoroscopic guidance retained right ureteral stent was then backloaded off the hybrid guidewire and discarded. Next a dual-lumen ureteral access sheath was advanced over the hybrid wire under fluoroscopic guidance to a level of the distal right ureter. Right retrograde pyelogram was then performed indicating the index ureteral calculus was located in that distal 3rd of the ureter. Clear documentation of known intrarenal calculi were not well seen under fluoroscopy. Next, the semi-rigid ureteroscope was prepared and advanced the lower urinary tract and then into the distal right ureteral segment were upon the stone was encountered just a short distance above the right ureterovesical junction. A 200 micron laser fiber was requested. All operating room personnel and patient were fitted with laser safety eyewear. Laser lithotripsy was then commenced with resultant excellent fragmentation of the calculus and clearance of the majority of its fragments using a combination of hydrostatic and mechanical methods. The laser unit was then put on standby and the fiber withdrawn. A 2nd 0.35 hybrid guidewire was then advanced through the semi-rigid ureteral scope advanced proximally into the intrarenal collecting system under direct and fluoroscopic guidance. The semi rigid ureteral scope was then backloaded off this guidewire. A dual-lumen ureteral access sheath was then selected and advanced over both wires proximally to the level of the right ureteropelvic junction. The dual-lumen ureteral access sheath was then backloaded off the to hybrid guidewires. One of the wires was secured to the operative drape. A flexible ureteral scope was then advanced over the 2nd wire and was advanced proximally under fluoroscopic guidance to the level of the right ureteropelvic junction. This hybrid guidewire was then backloaded off the ureteral scope right retrograde pyelography was again performed. A careful search was then conducted with findings of the index calculus repositioned more dependently in the dilated intrarenal collecting system of the renal pelvis. There were at least 3 additional calculi measuring 3-4 mm identified in the right upper pole. The laser fiber was positioned within the flexible ureteral scope in the above-described upper pole calculi were laser fragmented before turning attention to the largest, at least 6 mm diameter right renal pelvic calculus this to underwent laser fragmentation successfully. The flexible ureteral scope was then removed. The safety guidewire was then front loaded on the panendoscope the panendoscope was then advanced to lower urinary tract a 6 [place] by 22-32 cm multi-length stent was then advanced over the hybrid guidewire and advanced proximally under direct and fluoroscopic guidance. He was positioned satisfactorily in the right collecting system. A RETRIEVAL LINE WAS LEFT ATTACHED. The bladder was then drained completely and all instrumentation was removed. The patient was repositioned in supine, was awakened, then was transferred to a [place] for transport to the PACU awakened stable condition.
[2022-04-15] MEDS: FUROSEMIDE 40 MG/4 ML VIAL 20 MG IV (14:20)
[2022-04-15] MEDS: OXYCODONE IR 5 MG TABLET PO (15:20)
--- NOTE | 2022-04-15 15:30 | SUR.PHASEII ---
Pt discharged at 1521. Iv removed in bathroom by patient accidentally. Pt had 8/10 pain with attempting to void, small amount of urine resulting, no sediment or stones resulting in strainer. Pt attempted to pee again prior to DC at 1510- success. Nothing in strainer. Pt sent home with strainer and urinal. Pain decreased to 5/10. Given PO Oxycodone for pain.
== END 2022-04-15 15:21 | disposition home or self-care (01) ==
PROVIDERS: PCP Student in an Organized Health Care Education/Training Program; Referring Provider Specialist; Visit Provider Specialist
PROC: (CPT 52356; principal; 2022-04-15 11:45)
DX: N20.2 Calculus of kidney with calculus of ureter (principal); I10 Essential (primary) hypertension; E11.9 Type 2 diabetes mellitus without complications; Z79.84 Long term (current) use of oral hypoglycemic drugs
CPT/HCPCS: 52356; 82962; C1771; J0131; J0690; J1940; J2250; J2405; J2704; J2765; J3010

== ENCOUNTER 2022-04-17 10:25 | Inpatient (IN) | payer MEDICARE, SELFPAY ==
[2021-10-17 15:58] VITALS: BMI 29.0
[2022-04-17] VITALS (88 sets, daily range): BP systolic 61–203; BP diastolic 40–134; PULSE 83–151; RESP 10–60; TEMP 36.8–39.4; O2SAT 86–100; BMI 24.4; BMI 25.4
--- NOTE | 2022-04-17 10:27 | DI.CT.S_ITS ---
PROCEDURE: CT HEAD/BRAIN WO CON INDICATIONS: trauma, on plavix TECHNIQUE: Noncontrast 4.5 mm thick angled axial sections acquired from the foramen magnum to the vertex, with coronal and sagittal reformats. For radiation dose reduction, the following was used: automated exposure control, adjustment of mA and/or kV according to patient size. COMPARISON: [facility], CT, CT CERVICAL SPINE WO CON, 04/17/2022, 10:26. [facility], CT, CT BRAIN WO CON, 04/17/2015, 12:46. FINDINGS: Image quality: Excellent. CSF spaces: Basal cisterns are patent. No extra-axial fluid collections. The ventricles are symmetric in size and shape. Brain: No deaf intracranial bleeds are seen. No intracranial masses. There is cerebral volume loss for age, with resultant ventricular and sulcal prominence. There are periventricular and deep white matter chronic small vessel ischemic changes. There is intracranial internal carotid artery atherosclerosis. Skull and face: Calvarium and visualized facial bones appear intact, without suspicious lesions. Sinuses: Visualized sinuses and mastoids are clear. IMPRESSION: Unremarkable intracranial study for age, without definite acute intracranial hemorrhage. No acute intracranial process is seen. Dictated by: Willy Pendleton M.D. on 04/17/2022 at 9:34 Approved by: Willy Pendleton M.D. on 04/17/2022 at 9:37
--- NOTE | 2022-04-17 10:28 | DI.CT.S_ITS ---
PROCEDURE: CT CERVICAL SPINE WO CON INDICATIONS: trauma TECHNIQUE: Noncontrast 3 mm thick sections acquired from the skull base to the T4 level. Sagittal and coronal reformats were then constructed. For radiation dose reduction, the following was used: automated exposure control, adjustment of mA and/or kV according to patient size. COMPARISON: None. FINDINGS: Image quality: Excellent. Bones: No fractures or dislocations. Visualized superior ribs are intact. Degenerative disc space narrowing and hypertrophic uncovertebral joints in the mid to lower cervical spine results in moderate foraminal stenosis bilaterally at C5-6 and C6-7 as well as C7-T1. Moderate central stenosis C5-6 and C6-7 Soft tissues: Prevertebral soft tissues are normal in thickness. No paravertebral hematomas. No apical pneumothoraces. IMPRESSION: No evidence of fracture or traumatic malalignment. Multilevel degenerative disc disease and arthropathy results in varying degrees of central and foraminal stenosis including moderate central stenosis C5-6 and C6-7 Approved by: Garret Bentley M.D. on 04/17/2022 at 9:43
--- NOTE | 2022-04-17 10:41 | ED.GENADULT ---
HPI - General Adult General Chief complaint: Trauma Stated complaint: GLF Time Seen by Provider: 04/17/22 10:27 History of Present Illness HPI narrative: 76-year-old gentleman with a history of Pdtrwyo-Nhcxc-Qjrme, diabetes, peripheral vascular disease on clopidogrel, asthma, kidney stones who presents after falling off his recumbent bike in his garage this morning. He had lithotripsy on April 15 but notes otherwise he was in his usual state of health this morning and was trying to get into his recumbent bike, ended up losing his balance falling off hitting his head on the floor and ending up in an odd position with his head on the floor his leg still on the bike and unable to move. When medics arrived he was alert orient to name only had a minor abrasion the right side of his eye skin tears on the left anterior ferrell and initially moderately hypotensive with a systolic pressure at 86 them after a 500 cc boluses come up to 95. He denies any recent fever, cough, chills, abdominal pain, vomiting, diarrhea. He notes the chronic lower extremity weakness from his Zeyopul-Txzde-Pnxno disease is essentially unchanged. Related Data Previous Rx's Medication Instructions Recorded atenolol 50 mg tablet 50 mg PO DAILY #90 tabs 05/31/21 clopidogrel 75 mg tablet (Plavix) 75 mg PO DAILY #90 tabs 05/31/21 lisinopril 5 mg tablet 5 mg PO DAILY #90 tabs 05/31/21 atorvastatin 20 mg tablet (Lipitor) 20 mg PO BEDTIME #90 tabs 07/30/21 albuterol sulfate 90 mcg/actuation 1 puff inhalation Q6H PRN 08/30/21 aerosol inhaler (ProAir HFA) shortness of breath or wheezing #8.5 grams colchicine 0.6 mg tablet 0.6 mg PO DAILY #30 tabs 11/29/21 metformin 1,000 mg tablet 1,000 mg PO BID #180 tabs 12/10/21 alprazolam 0.5 mg tablet 0.5 mg PO DAILY #1 tab 12/20/21 ropinirole 4 mg tablet 8 mg PO BEDTIME #180 tabs 02/18/22 potassium citrate 10 mEq (1,080 10 meq PO TID #270 tabs 03/19/22 mg) tablet,extended release oxycodone 5 mg tablet 5 mg PO Q4H PRN pain #14 tabs 04/15/22 Allergies Allergy/AdvReac Type Severity Reaction Status Date / Time No Known Drug Allergies Allergy Verified 04/15/22 09:44 Review of Systems Review of Systems Narrative: Remainder of complete review of systems is otherwise unremarkable except for that included in the HPI. Patient History Medical History (Updated 04/17/22 @ 15:35 by Apple Kent MD) Arthritis Bilateral nephrolithiasis Xpxyaig-Pakws-Zoesc disease Colon cancer Diabetes mellitus treated with oral medication Hernia Hypertension, essential Mixed hyperlipidemia Peripheral vascular disease of extremity Sleep apnea in adult Surgical History Hx of cystoscopy (10/16/21) Hx of cystoscopy (12/03/21) Hx of cystoscopy (03/25/22) S/P ureteral stent placement Status post colectomy (~1995) Status post vascular bypass Family History Father Ulcer History of blood clots Mother No known problems Social History marital status: household members: spouse lives independently: Yes occupational status: other Smoking Status: Former smoker alcohol intake: current substance use type: does not use Type(s) of exercise: bicycling frequency: 1-2 times per week Smoking Status: Former smoker alcohol intake frequency: a few times a month Substance Use Type: does not use Exam Initial Vital Signs Initial Vital Signs: Vital Signs Temperature 99.7 F H 04/17/22 10:25 Pulse Rate 122 H 04/17/22 10:25 Respiratory Rate 18 04/17/22 10:25 Blood Pressure 135/94 H 04/17/22 10:25 Pulse Oximetry 98 04/17/22 10:25 Oxygen Delivery Method 04/17/22 10:25 Oxygen Flow Rate 2 04/17/22 10:25 General: Older appearing but in no acute distress. Able to give a complete and coherent history. Well-nourished well-developed, HEENT: Moist mucous membranes, normal sclera with reactive pupils, mild bruising lateral aspect right eye Neck: No JVD, supple Respiratory: Lungs are clear to auscultation, no wheezing no rales no rhonchi. Full and symmetrical air movement Cardiac: Tachycardic but otherwise Regular rate and rhythm no murmurs no bruits Abdomen: Soft, nontender, good bowel tones, minor abrasion right flank but no flank pain Skin: Warm and dry, no rashes Neurologic: A&O x4, Grossly neurologically intact with no obvious new asymmetries or abnormalities. He has overall poor muscle tone and weakness in his legs bilaterally, chronic Extremities: Skin tear left anterior ferrlel well perfused Psych: Cooperative, appropriate insight and affect Procedures Central Line Placement Right IJ: Time of procedure: 18:06 Time Out Performed: Yes Patient Placed on Monitor/Pulse Ox: Yes MD Prep: mask, gown and gloves Central Line Prep: Chlorhexidine scrub and sterile drapes applied Local Anesthetic: lidocaine 1% Amount of anesthesia used (mL): 2 Ultrasound Used for Placement: Yes Central Line Lumen Inserted: triple Post Procedure: sutured in place, good blood return, all ports aspirated, flushed, capped and sterile dressing applied Post Procedure X-Ray: tip of catheter in good position and no pneumothorax seen Patient Tolerated Procedure: Well Complications: none Course Orders Ordered: ED Orders 04/17/22 10:27 CT head/brain wo con Stat 04/17/22 10:28 CT cervical spine wo con Stat 04/17/22 10:45 COVID19 -Nasal RAPID/Pre-Proc Stat Complete Blood Count AUTO DIFF Stat Comprehensive Metabolic Panel Stat Lactate (Lactic Acid) Stat Magnesium Stat Procalcitonin Stat Troponin I Stat 04/17/22 11:18 EKG-12 Lead Stat 04/17/22 11:26 XR knee RT 3V Stat XR lumbar spine 2-3V Stat 04/17/22 11:45 Blood Culture Stat 04/17/22 12:10 Urinalysis and Microscopic Stat Urine Culture Stat 04/17/22 12:47 Trop I [Troponin I] Stat 04/17/22 14:15 XR chest 1V Stat Partial Thromboplastin Time Q6H 04/17/22 15:25 BiPAP Ventilatory Support RT PROTOCOL 04/17/22 16:01 EC echo doppler complete Stat 04/17/22 20:15 Partial Thromboplastin Time Q6H 04/18/22 02:15 Partial Thromboplastin Time Q6H 04/18/22 08:15 Partial Thromboplastin Time Q6H Hydromorphone HCl (Hydromorphone 0.5 Mg Inj) 0.5 mg IV Q15MIN PRN PRN Reason: Pain, Last Admin: 04/17/22 13:10 Dose: 0.5 mg Documented By: SIENNA NOREPINEPHRINE BITARTRATE/D5W (Levophed) 4 mg in 250 mls @ 30 mls/hr IV TITRATE MARICARMEN; Protocol Last Titration: 04/17/22 17:05 Dose: 4 mcg/min, 15 mls/hr Documented By: SIENNA(2) Titration: 04/17/22 15:17 Dose: 0 mcg/min, 0 mls/hr Documented By: SIENNA(2) Titration: 04/17/22 15:00 Dose: 4 mcg/min, 15 mls/hr Documented By: SIENNA(2) Admin: 04/17/22 14:09 Dose: 8 mcg/min, 30 mls/hr Documented By: SIENNA(2) Heparin Sodium/Dextrose (Heparin Drip) 25,000 unit in 500 mls @ 19.595 mls/hr IV CONT MARICARMEN; Protocol Last Admin: 04/17/22 14:27 Dose: 12 units/kg/hr, 19.595 mls/hr Documented By: CATHY dexmedeTOMIDine in 0.9 % NaCL (Precedex) 400 mcg in 100 mls @ 4.25 mls/hr IV TITRATE MARICARMEN; Protocol Last Admin: 04/17/22 17:57 Dose: 0.2 mcg/kg/hr, 4.25 mls/hr Documented By: CC Lorazepam (Lorazepam 2 Mg/Ml Inj) 1 mg IV Q4HR PRN PRN Reason: Anxiety Discontinued Medications Adenosine (Adenosine 6 Mg/2 Ml Vial) 6 mg IV NOW ONE Stop: 04/17/22 11:22 Last Admin: 04/17/22 11:40 Dose: 6 mg Documented By: SIENNA(2) Furosemide (Furosemide 40 Mg/4 Ml Vial) 20 mg IV NOW ONE Stop: 04/17/22 16:47 Last Admin: 04/17/22 16:52 Dose: 20 mg Documented By: SIENNA(2) Heparin Sodium (Porcine) (Heparin 5,000 Unit/Ml Vial) 5,000 unit IV NOW ONE Stop: 04/17/22 14:09 Last Admin: 04/17/22 14:26 Dose: 5,000 unit Documented By: BT Sodium Chloride (Normal Saline 0.9%) 1,000 mls @ 1,000 mls/hr IV BOLUS ONE Stop: 04/17/22 12:17 Last Infusion: 04/17/22 12:49 Dose: 0 mls/hr Documented By: SIENNA(2) Admin: 04/17/22 11:22 Dose: 1,000 mls/hr Documented By: RB Magnesium Sulfate (Magnesium Sulfate) 2 gm in 50 mls @ 25 mls/hr IV NOW ONE Stop: 04/17/22 13:52 Last Infusion: 04/17/22 14:10 Dose: 0 mls/hr Documented By: MARKY Co-signed By: SEINNA(2) Admin: 04/17/22 12:09 Dose: 25 mls/hr Documented By: RB Co-signed By: SIENNA(2) Sodium Chloride (Normal Saline 0.9%) 1,000 mls @ 1,000 mls/hr IV BOLUS ONE Stop: 04/17/22 14:28 Last Infusion: 04/17/22 16:14 Dose: 0 mls/hr Documented By: Admin: 04/17/22 13:29 Dose: 1,000 mls/hr Documented By: SIENNA(2) Piperacillin Sod/Tazobactam (Sod 4.5 gm/ Sodium Chloride) 100 mls @ 200 mls/hr IV NOW ONE Stop: 04/17/22 13:49 Last Infusion: 04/17/22 15:20 Dose: 0 mls/hr Documented By: Admin: 04/17/22 14:10 Dose: 200 mls/hr Documented By: SIENNA(2) Lorazepam (Lorazepam 2 Mg/Ml Inj) 0.5 mg IV NOW ONE Stop: 04/17/22 15:27 Last Admin: 04/17/22 15:31 Dose: 0.5 mg Documented By: SIENNA(2) Lorazepam (Lorazepam 2 Mg/Ml Inj) 0.5 mg IV NOW ONE Stop: 04/17/22 15:36 Last Admin: 04/17/22 15:44 Dose: 0.5 mg Documented By: SIENNA(2) Midazolam HCl (Midazolam 2 Mg/2 Ml Vial) 2 mg IV NOW ONE Stop: 04/17/22 16:09 Last Admin: 04/17/22 16:14 Dose: 2 mg Documented By: MARKY Vital Signs Vital signs: Vital Signs - 8 hr 04/17/22 10:25 04/17/22 11:09 04/17/22 10:36 Temperature 99.7 F H 99.7 F H Pulse Rate 122 H 122 H Respiratory Rate 18 20 Blood Pressure 135/94 H 97/54 L 135/94 H Pulse Oximetry 98 98 Oxygen Delivery Method Nasal Cannula Nasal Cannula Oxygen Flow Rate 2 2 Fraction of Inspired Oxygen 04/17/22 10:36 04/17/22 11:00 04/17/22 11:06 Temperature Pulse Rate 130 H 121 H 122 H Respiratory Rate 20 20 20 Blood Pressure Pulse Oximetry 98 98 Oxygen Delivery Method Oxygen Flow Rate Fraction of Inspired Oxygen 04/17/22 11:07 04/17/22 11:07 04/17/22 11:15 Temperature Pulse Rate 123 H 121 H Respiratory Rate 20 22 Blood Pressure 97/54 L Pulse Oximetry 99 99 Oxygen Delivery Method Oxygen Flow Rate Fraction of Inspired Oxygen 04/17/22 11:16 04/17/22 11:16 04/17/22 11:30 Temperature Pulse Rate 122 H Respiratory Rate 22 Blood Pressure 87/56 L 105/60 Pulse Oximetry 99 Oxygen Delivery Method Oxygen Flow Rate Fraction of Inspired Oxygen 04/17/22 11:30 04/17/22 11:43 04/17/22 11:43 Temperature Pulse Rate 121 H 121 H Respiratory Rate 22 22 Blood Pressure 113/55 L Pulse Oximetry 99 99 Oxygen Delivery Method Oxygen Flow Rate Fraction of Inspired Oxygen 04/17/22 11:45 04/17/22 11:45 04/17/22 12:00 Temperature Pulse Rate 122 H Respiratory Rate 22 Blood Pressure 111/58 L 105/61 Pulse Oximetry 100 Oxygen Delivery Method Oxygen Flow Rate Fraction of Inspired Oxygen 04/17/22 12:00 04/17/22 12:27 04/17/22 12:30 Temperature Pulse Rate 118 H 121 H Respiratory Rate 20 Blood Pressure 110/60 Pulse Oximetry 100 Oxygen Delivery Method Oxygen Flow Rate Fraction of Inspired Oxygen 04/17/22 12:30 04/17/22 12:45 04/17/22 12:45 Temperature Pulse Rate 118 H 117 H Respiratory Rate 30 H Blood Pressure 96/51 L Pulse Oximetry 99 96 Oxygen Delivery Method Oxygen Flow Rate Fraction of Inspired Oxygen 04/17/22 13:00 04/17/22 13:01 04/17/22 13:01 Temperature Pulse Rate 116 H 120 H Respiratory Rate 21 Blood Pressure 92/57 L Pulse Oximetry 94 93 Oxygen Delivery Method Oxygen Flow Rate Fraction of Inspired Oxygen 04/17/22 13:15 04/17/22 13:16 04/17/22 13:16 Temperature Pulse Rate 117 H 117 H Respiratory Rate 31 H 32 H Blood Pressure 80/56 L Pulse Oximetry 92 92 Oxygen Delivery Method Oxygen Flow Rate Fraction of Inspired Oxygen 04/17/22 13:26 04/17/22 13:26 04/17/22 13:30 Temperature Pulse Rate 118 H Respiratory Rate 22 Blood Pressure 79/49 L 79/40 L Pulse Oximetry 93 Oxygen Delivery Method Oxygen Flow Rate Fraction of Inspired Oxygen 04/17/22 13:30 04/17/22 13:45 04/17/22 13:45 Temperature Pulse Rate 117 H 120 H Respiratory Rate 22 22 Blood Pressure 110/60 Pulse Oximetry 91 92 Oxygen Delivery Method Oxygen Flow Rate Fraction of Inspired Oxygen 04/17/22 14:00 04/17/22 14:04 04/17/22 14:04 Temperature Pulse Rate 121 H 123 H Respiratory Rate 26 H 25 H Blood Pressure 99/52 L Pulse Oximetry 93 93 Oxygen Delivery Method Oxygen Flow Rate Fraction of Inspired Oxygen 04/17/22 14:15 04/17/22 14:16 04/17/22 14:16 Temperature Pulse Rate 120 H 121 H Respiratory Rate 28 H 25 H Blood Pressure 127/52 L Pulse Oximetry 93 93 Oxygen Delivery Method Oxygen Flow Rate Fraction of Inspired Oxygen 04/17/22 14:30 04/17/22 14:30 04/17/22 14:45 Temperature Pulse Rate 121 H Respiratory Rate 26 H Blood Pressure 125/58 L 165/73 H Pulse Oximetry 95 Oxygen Delivery Method Oxygen Flow Rate Fraction of Inspired Oxygen 04/17/22 14:45 04/17/22 15:00 04/17/22 15:01 Temperature Pulse Rate 121 H 135 H Respiratory Rate 27 H 28 H Blood Pressure 168/134 H Pulse Oximetry 95 94 Oxygen Delivery Method Oxygen Flow Rate Fraction of Inspired Oxygen 04/17/22 15:01 04/17/22 15:10 04/17/22 15:10 Temperature Pulse Rate 126 H 135 H Respiratory Rate 33 H Blood Pressure 156/123 H Pulse Oximetry 88 L 94 Oxygen Delivery Method Room Air Nasal Cannula Oxygen Flow Rate 2 Fraction of Inspired Oxygen 04/17/22 16:00 04/17/22 15:14 04/17/22 15:14 Temperature Pulse Rate 138 H Respiratory Rate 34 H Blood Pressure 129/106 H 162/133 H Pulse Oximetry 88 L Oxygen Delivery Method Nasal Cannula Oxygen Flow Rate 2 Fraction of Inspired Oxygen 45 04/17/22 15:15 04/17/22 15:16 04/17/22 15:16 Temperature Pulse Rate 138 H 137 H Respiratory Rate 34 H 33 H Blood Pressure 179/76 H Pulse Oximetry 90 L 86 L Oxygen Delivery Method Nasal Cannula Nasal Cannula Oxygen Flow Rate 2 2 Fraction of Inspired Oxygen 04/17/22 15:30 04/17/22 15:30 04/17/22 15:41 Temperature Pulse Rate 147 H 150 H Respiratory Rate 60 H 60 H Blood Pressure 179/81 H Pulse Oximetry 89 L 97 Oxygen Delivery Method Non -Rebreather BiPAP Oxygen Flow Rate 15 Fraction of Inspired Oxygen 04/17/22 15:41 04/17/22 15:45 04/17/22 15:50 Temperature Pulse Rate 151 H Respiratory Rate 35 H Blood Pressure 203/94 H 129/106 H Pulse Oximetry 98 Oxygen Delivery Method BiPAP Oxygen Flow Rate Fraction of Inspired Oxygen 04/17/22 15:50 04/17/22 16:00 04/17/22 16:15 Temperature Pulse Rate 151 H 150 H 147 H Respiratory Rate 42 H 53 H 51 H Blood Pressure Pulse Oximetry 86 L 97 88 L Oxygen Delivery Method BiPAP BiPAP BiPAP Oxygen Flow Rate Fraction of Inspired Oxygen 04/17/22 16:30 04/17/22 16:45 Temperature Pulse Rate 141 H 143 H Respiratory Rate 37 H 33 H Blood Pressure Pulse Oximetry 93 99 Oxygen Delivery Method BiPAP BiPAP Oxygen Flow Rate Fraction of Inspired Oxygen Medical Decision Making Lab Data Result diagrams: 04/17/22 10:45 04/17/22 10:45 Labs: Lab Results 04/17/22 04/17/22 04/17/22 Range/Units 10:45 10:45 10:45 WBC 6.2 (4.5-11.0) X10^3/uL RBC 3.40 L (4.5-5.9) X10^6/uL Hgb 10.3 L (13.5-17.5) g/dL Hct 30.5 L (41-53) % MCV 89.8 (80-100) fL MCH 30.4 (26-34) PG MCHC 33.9 (30-36) % RDW 14.1 (11.6-14.8) % Plt Count 108 L (150-400) X10^3/uL Neut % (Auto) 90.6 H (50-75) % Lymph % (Auto) 2.3 L (25-40) % [place] % (Auto) 6.5 (3-14) % Eos % (Auto) 0.5 L (2-4) % Baso % (Auto) 0.1 (0-2) % Neut # (Auto) 5700 (7517-5562) /uL Lymph # (Auto) 100 L (3421-8778) /uL [place] # (Auto) 400 (0-900) /uL Eos # (Auto) 0 (0-450) /uL Baso # (Auto) 0 (0-100) /uL APTT (26-36) SECONDS Sodium 134 L (137-145) mmol/L Potassium 4.8 (3.4-5.1) mmol/L Chloride 104 (98-107) mmol/L Carbon Dioxide 18 L (22-32) mmol/L BUN 21 H (9-20) mg/dL Creatinine 0.92 (0.66-1.25) mg/dL Estimated GFR > 60 (>60) mL/min BUN/Creatinine Ratio 22.8 H (6-22) Glucose 274 H (80-110) mg/dL Lactate 3.5 H (0.7-2.1) mmol/L Calcium 8.0 L (8.4-10.2) mg/dL Magnesium 1.3 L (1.6-2.3) mg/dL Total Bilirubin 0.5 (0.2-1.3) mg/dL AST 24 (17-59) IU/L ALT 24 (<50) IU/L Alkaline Phosphatase 50 (38-126) U/L Troponin I 0.106 H (0.01-0.034) ng/mL Total Protein 5.9 L (6.3-8.2) g/dL Albumin 3.4 L (3.5-5.0) g/dL Globulin 2.5 (1.7-4.1) g/dL Albumin/Globulin Ratio 1.4 (1.0-2.8) Procalcitonin 0.73 H (<0.5) ng/mL Urine Color Urine Appearance Urine pH (4.5-8.0) Ur Specific [place] (1.000-1.035) Urine Protein (Negative) Urine Glucose (UA) (Negative) g/dL Urine Ketones (NEGATIVE) Urine Occult Blood (Negative) Urine Nitrate (Negative) Urine Bilirubin (NEGATIVE) Urine Urobilinogen (0.2) E.U./dL Ur Leukocyte Esterase (NEGATIVE) Urine RBC (0-5/HPF) Urine WBC (0-5/HPF) Ur Squamous Epith Cells (0-5/HPF) Urine Bacteria (None) Ur Culture Indicated? SARS-CoV-2 (PCR) (Negative) 04/17/22 04/17/22 04/17/22 Range/Units 10:45 12:10 12:47 WBC (4.5-11.0) X10^3/uL RBC (4.5-5.9) X10^6/uL Hgb (13.5-17.5) g/dL Hct (41-53) % MCV (80-100) fL MCH (26-34) PG MCHC (30-36) % RDW (11.6-14.8) % Plt Count (150-400) X10^3/uL Neut % (Auto) (50-75) % Lymph % (Auto) (25-40) % [place] % (Auto) (3-14) % Eos % (Auto) (2-4) % Baso % (Auto) (0-2) % Neut # (Auto) (7302-7138) /uL Lymph # (Auto) (6747-3658) /uL [place] # (Auto) (0-900) /uL Eos # (Auto) (0-450) /uL Baso # (Auto) (0-100) /uL APTT (26-36) SECONDS Sodium (137-145) mmol/L Potassium (3.4-5.1) mmol/L Chloride (98-107) mmol/L Carbon Dioxide (22-32) mmol/L BUN (9-20) mg/dL Creatinine (0.66-1.25) mg/dL Estimated GFR (>60) mL/min BUN/Creatinine Ratio (6-22) Glucose (80-110) mg/dL Lactate (0.7-2.1) mmol/L Calcium (8.4-10.2) mg/dL Magnesium (1.6-2.3) mg/dL Total Bilirubin (0.2-1.3) mg/dL AST (17-59) IU/L ALT (<50) IU/L Alkaline Phosphatase (38-126) U/L Troponin I 0.470 H* (0.01-0.034) ng/mL Total Protein (6.3-8.2) g/dL Albumin (3.5-5.0) g/dL Globulin (1.7-4.1) g/dL Albumin/Globulin Ratio (1.0-2.8) Procalcitonin (<0.5) ng/mL Urine Color Brown Urine Appearance Cloudy Urine pH 5.0 (4.5-8.0) Ur Specific [place] 1.015 (1.000-1.035) Urine Protein 2+ H (Negative) Urine Glucose (UA) 1+ H (Negative) g/dL Urine Ketones Negative (NEGATIVE) Urine Occult Blood 3+ H (Negative) Urine Nitrate Positive H (Negative) Urine Bilirubin Negative (NEGATIVE) Urine Urobilinogen 0.2 (0.2) E.U./dL Ur Leukocyte Esterase 1+ H (NEGATIVE) Urine RBC >100/hpf H (0-5/HPF) Urine WBC >100/hpf H (0-5/HPF) Ur Squamous Epith Cells 1-5 /hpf (0-5/HPF) Urine Bacteria Many (>30) H (None) Ur Culture Indicated? Specimen cultured SARS-CoV-2 (PCR) Negative (Negative) 04/17/22 04/17/22 Range/Units 13:35 14:15 WBC (4.5-11.0) X10^3/uL RBC (4.5-5.9) X10^6/uL Hgb (13.5-17.5) g/dL Hct (41-53) % MCV (80-100) fL MCH (26-34) PG MCHC (30-36) % RDW (11.6-14.8) % Plt Count (150-400) X10^3/uL Neut % (Auto) (50-75) % Lymph % (Auto) (25-40) % [place] % (Auto) (3-14) % Eos % (Auto) (2-4) % Baso % (Auto) (0-2) % Neut # (Auto) (7853-7658) /uL Lymph # (Auto) (9506-2489) /uL [place] # (Auto) (0-900) /uL Eos # (Auto) (0-450) /uL Baso # (Auto) (0-100) /uL APTT 77 H* (26-36) SECONDS Sodium (137-145) mmol/L Potassium (3.4-5.1) mmol/L Chloride (98-107) mmol/L Carbon Dioxide (22-32) mmol/L BUN (9-20) mg/dL Creatinine (0.66-1.25) mg/dL Estimated GFR (>60) mL/min BUN/Creatinine Ratio (6-22) Glucose (80-110) mg/dL Lactate 2.1 (0.7-2.1) mmol/L Calcium (8.4-10.2) mg/dL Magnesium (1.6-2.3) mg/dL Total Bilirubin (0.2-1.3) mg/dL AST (17-59) IU/L ALT (<50) IU/L Alkaline Phosphatase (38-126) U/L Troponin I (0.01-0.034) ng/mL Total Protein (6.3-8.2) g/dL Albumin (3.5-5.0) g/dL Globulin (1.7-4.1) g/dL Albumin/Globulin Ratio (1.0-2.8) Procalcitonin (<0.5) ng/mL Urine Color Urine Appearance Urine pH (4.5-8.0) Ur Specific [place] (1.000-1.035) Urine Protein (Negative) Urine Glucose (UA) (Negative) g/dL Urine Ketones (NEGATIVE) Urine Occult Blood (Negative) Urine Nitrate (Negative) Urine Bilirubin (NEGATIVE) Urine Urobilinogen (0.2) E.U./dL Ur Leukocyte Esterase (NEGATIVE) Urine RBC (0-5/HPF) Urine WBC (0-5/HPF) Ur Squamous Epith Cells (0-5/HPF) Urine Bacteria (None) Ur Culture Indicated? SARS-CoV-2 (PCR) (Negative) Imaging Data CT scan - head: Radiologist's Impression: FINDINGS:? Image quality:? Excellent.? ? CSF spaces:? Basal cisterns are patent.? No extra-axial fluid collections.? The ventricles are symmetric in size and shape.? ? Brain:? No deaf intracranial bleeds are seen.? No intracranial masses.? There is cerebral volume loss for age, with resultant ventricular and sulcal prominence.? There are periventricular and deep white matter chronic small vessel ischemic changes.? There is intracranial internal carotid artery atherosclerosis.? ? Skull and face:? Calvarium and visualized facial bones appear intact, without suspicious lesions.? ? Sinuses:? Visualized sinuses and mastoids are clear.? ? ? IMPRESSION:? Unremarkable intracranial study for age, without definite acute intracranial hemorrhage. ? No acute intracranial process is seen.? ? ? Dictated by: Willy Pendleton M.D. on 04/17/2022 at 9:34 ? ? CT - cervical spine: Radiologist's Impression: FINDINGS:? Image quality:? Excellent.? ? Bones:? No fractures or dislocations.? Visualized superior ribs are intact.? Degenerative disc space narrowing and hypertrophic uncovertebral joints in the mid to lower cervical spine results in moderate foraminal stenosis bilaterally at C5-6 and C6-7 as well as C7-T1.? Moderate central stenosis C5-6 and C6-7 ? Soft tissues:? Prevertebral soft tissues are normal in thickness.? No paravertebral hematomas.? No apical pneumothoraces.? ? ? IMPRESSION:? ? No evidence of fracture or traumatic malalignment. ? Multilevel degenerative disc disease and arthropathy results in varying degrees of central and foraminal stenosis including moderate central stenosis C5-6 and C6-7 ? Approved by: Garret Bentley M.D. on 04/17/2022 at 9:43? lumbar spine: Radiologist's Impression: FINDINGS:? ? Bones:? 5 [id number] vertebrae are present.? There is normal bony alignment.? No vertebral body compression fractures.? Anterior wedging at T12 is unchanged from the CT dated December 18, 2021.? No suspicious bony lesions.? There is mild intervertebral disc space narrowing, osteophytosis and facet sclerosis throughout the lumbar spine. ? Soft tissues:? Overlying bowel gas pattern is normal.? No suspicious soft tissue calcifications.? ? ? IMPRESSION:? Degenerative change.? No acute compression deformities. ? ? Dictated by: Diane Valdez M.D. on 04/17/2022 at 12:39 ? ? XR knee: Radiologist's Impression: FINDINGS:? ? Bones:? No acute fracture or dislocation.? There is severe lateral and moderate medial femorotibial compartment narrowing and tricompartmental osteophytes.? These findings have increased in extent when compared with the previous study dated December 22, 2007. No acute fracture or dislocation. ? Soft tissues:? There is a moderate knee joint effusion.? There are soft tissue vascular calcifications. ? ? IMPRESSION:? Severe right knee osteoarthritis and moderate knee joint effusion.? Arterial atherosclerosis. ? No acute radiographic findings. If pain persists, followup imaging in 5-7 days is recommended to exclude occult fracture. ? Dictated by: Diane Valdez M.D. on 04/17/2022 at 12:37 ? ? ECG Data Interpretation: Sinus tachycardia at a rate of 123 Left axis deviation Possibility of flutter was considered. He was given a single dose of adenosine with no change to rhythm strip to suggest an underlying flutter. [facility] Narrative Medical decision making narrative: 76-year-old gentleman initially presents as a standby trauma after falling off his recumbent bike and having minor concussion with return of all cognitive function. CT of the head neck are unremarkable. He was initially hypotensive started to respond to fluid but has continued to become progressively more hypotensive, he is currently on his 3 L of fluid. White blood cell count is not significantly elevated but procalcitonin is slightly. He is not been febrile and has no other infectious Disease complaints. He is 2 days status post lithotripsy. He continues to be progressively hypotensive. Lactic acid is being repeated as is troponin. Will add antibiotics to cover a urinary source of infection given his recent procedure, continued fluid resuscitation and will begin a trial of Levophed peripherally and if this is required for more than a couple of hours central line will be placed. 210pm repeat trop is .470 Heparin will be started. central line placed Central line is appropriate x-ray confirms. Patient is becoming more and more anxious and more more hypoxic. He is started on BiPAP and Spear catheter is placed to more closely follow I&Os With the movement/agitation secondary to his hypoxia, his blood pressure is responded nicely and he is now off the Levophed. He is also increasingly tachycardic with sinus tach into the 130s. No beds are available at [facility] today. Will begin looking for alternative hospitals. 4pm Discussed with cardiology. Given now hypertensive, recommended 20mg IV lasix. Spear is in place and we can more closely monitor fluids If need to restart pressors, considter vasopressin if he remains tachycardic and dopamine if normal HR. Stat Echo is ordered and earliest available is 7am tomorrow am. [facility] and 60%. Given realitiy of bed availalbity, he felt that the medical management of his NSTEMI at [place] was a reasonable alternative Not tolerating bipap due to restlessness. Unclear how much is baseline, how much is possible post concussion, how much is hypoxia. Attempting to address all issues. Has settled with IV versed discussed with admitting hospitalist, accepted ICU admit Critical Care Time Critical Care Time Critical Care Time: Yes Total Critical Care Time: 71 Attestation: Critical care time is separate from other billable procedures. There is a high probability of a significant, sudden or life-threatening deterioration that requires my full and direct attention, intervention and personal management. This critical care time includes consultation with family and other consulting doctors, review of records, and interpretation of data from labs, EKGs and imaging as well as managements of hypotension, tachycardia, respiratory failure, trauma, altered mental status Discharge Plan Departure Patient Disposition: Admitted As Inpatient Clinical Impression: Acute non-ST elevation myocardial infarction (NSTEMI), Fall, Brain concussion, Right knee sprain, Respiratory failure Admit Date/Time: 04/17/22 16:55 Admit Provider: Susan Neil
[2022-04-17] MEDS: SODIUM CHLORIDE 0.9% 1,000 ML 1000 ML IV ×2 (11:22→13:29)
[2022-04-17 11:26] LABS: Add Manual Diff / Slide Review NO; Basophils Absolute Auto 0 /uL (0-100); Basophils Percent Auto 0.1 % (0-2); Eosinophils Absolute Auto 0 /uL (0-450); Eosinophils Percent Auto 0.5 % (2-4); Hematocrit 30.5 % (41-53); Hemoglobin 10.3 g/dL (13.5-17.5); Lymphocytes Absolute Auto 100 /uL (1100-4500); Lymphocytes Percent Auto 2.3 % (25-40); Mean Corpuscular HGB Conc 33.9 % (30-36); Mean Corpuscular Hemoglobin 30.4 PG (26-34); Mean Corpuscular Volume 89.8 fL (80-100); Monocytes Absolute Auto 400 /uL (0-900); Monocytes Percent Auto 6.5 % (3-14); Neutrophils Absolute Auto 5700 /uL (1500-7000); Neutrophils Percent Auto 90.6 % (50-75); Platelet Count 108 X10^3/uL (150-400); Red Cell Distribution Width 14.1 % (11.6-14.8); White Blood Cell Count 6.2 X10^3/uL (4.5-11.0)
--- NOTE | 2022-04-17 11:26 | DI.RAD.S_ITS ---
PROCEDURE: XR LUMBAR SPINE 2-3V INDICATIONS: fall, pain TECHNIQUE: 3 views of the lumbar spine were acquired. COMPARISON: [facility], CT, CT KIDNEY URETER BLADDER (KUB), 12/18/2021, 10:17. [facility], CT, CT KIDNEY URETER BLADDER (KUB), 03/23/2022, 1:43. FINDINGS: Bones: 5 [id number] vertebrae are present. There is normal bony alignment. No vertebral body compression fractures. Anterior wedging at T12 is unchanged from the CT dated December 18, 2021. No suspicious bony lesions. There is mild intervertebral disc space narrowing, osteophytosis and facet sclerosis throughout the lumbar spine. Soft tissues: Overlying bowel gas pattern is normal. No suspicious soft tissue calcifications. IMPRESSION: Degenerative change. No acute compression deformities. Dictated by: Diane Valdez M.D. on 04/17/2022 at 12:39 Approved by: Diane Valdez M.D. on 04/17/2022 at 12:41
--- NOTE | 2022-04-17 11:26 | DI.RAD.S_ITS ---
PROCEDURE: XR KNEE RT 3V INDICATIONS: fall, pain TECHNIQUE: 3 views of the knee were acquired. COMPARISON: [facility], , KNEE 3V RIGHT, 12/22/2007, 10:31. FINDINGS: Bones: No acute fracture or dislocation. There is severe lateral and moderate medial femorotibial compartment narrowing and tricompartmental osteophytes. These findings have increased in extent when compared with the previous study dated December 22, 2007. No acute fracture or dislocation. Soft tissues: There is a moderate knee joint effusion. There are soft tissue vascular calcifications. IMPRESSION: Severe right knee osteoarthritis and moderate knee joint effusion. Arterial atherosclerosis. No acute radiographic findings. If pain persists, followup imaging in 5-7 days is recommended to exclude occult fracture. Dictated by: Diane Valdez M.D. on 04/17/2022 at 12:37 Approved by: Diane Valdez M.D. on 04/17/2022 at 12:38
[2022-04-17 11:33] LABS: Lactate (Lactic Acid) 3.5 mmol/L (0.7-2.1)
[2022-04-17 11:34] LABS: Alanine Aminotransferase 24 IU/L (<50); Albumin 3.4 g/dL (3.5-5.0); Albumin Globulin Ratio 1.4 (1.0-2.8); Alkaline Phosphatase 50 U/L (38-126); Aspartate Aminotransferase 24 IU/L (17-59); BUN Creatinine Ratio 22.8 (6-22); Bilirubin Total 0.5 mg/dL (0.2-1.3); Blood Urea Nitrogen 21 mg/dL (9-20); Carbon Dioxide 18 mmol/L (22-32); Chloride 104 mmol/L (98-107); Estimated Glomerular Filt Rate > 60 mL/min (>60); Globulin 2.5 g/dL (1.7-4.1); Glucose 274 mg/dL (80-110); HEMOLYSIS 37 (0-50); Magnesium 1.3 mg/dL (1.6-2.3); Potassium 4.8 mmol/L (3.4-5.1); Sodium 134 mmol/L (137-145); Total Protein 5.9 g/dL (6.3-8.2)
[2022-04-17] MEDS: ADENOSINE 6 MG/2 ML VIAL IV (11:40)
[2022-04-17 11:45] LABS: Troponin I 0.106 ng/mL (0.01-0.034)
[2022-04-17 11:50] LABS: Procalcitonin 0.73 ng/mL (<0.5)
--- NOTE | 2022-04-17 11:54 | PC.NURSE ---
adenosine given fast iv push 6mg hr tachy at 127 to 119, no slow down of heart rate with med administration
[2022-04-17] MEDS: MAGNESIUM SULFATE 2 GM/50 ML PIGGYBACK IV (12:09)
[2022-04-17 12:17] LABS: Appearance Urine UA CLOUDY; Bilirubin Urine UA NEGATIVE (NEGATIVE); Color Urine UA BROWN; Glucose Urine UA 1+ g/dL (Negative); Ketones Urine UA NEGATIVE (NEGATIVE); Leukocyte Esterase Urine UA 1+ (NEGATIVE); Nitrite Urine UA POSITIVE (Negative); Occult Blood Urine UA 3+ (Negative); Protein Urine UA 2+ (Negative); Specific Gravity Urine UA 1.015 (1.000-1.035); Urobilinogen Urine UA 0.2 E.U./dL (0.2)
[2022-04-17 12:32] LABS: Bacteria Urine Many (>30); Culture Indicated Urine Specimen Cultured; RBC Urine >100/HPF (0-5/HPF); Squamous Epithelial Cell Urine 1-5 /HPF (0-5/HPF); WBC Urine >100/HPF (0-5/HPF)
[2022-04-17 12:42] LABS: COVID19 -Nasal RAPID Negative (Negative)
[2022-04-17] MEDS: HYDROMORPHONE 0.5 MG INJ IV (13:10)
[2022-04-17 13:22] LABS: Reflexed Lactate in 2 Hours Y
[2022-04-17 13:59] LABS: Lactate 2HR (Lactic Acid Rflx) 2.1 mmol/L (0.7-2.1)
[2022-04-17] MEDS: NOREPINEPHRINE BITARTRATE/D5W 4 MG/250 ML PLAST..BAG 30 MG IV (14:09)
[2022-04-17] MEDS: PIPERACILLIN/TAZO 4.5 GM in SODIUM CHLORIDE 0.9% 100 ML IV (14:10)
--- NOTE | 2022-04-17 14:15 | DI.RAD.S_ITS ---
PROCEDURE: XR CHEST 1V INDICATIONS: post central line TECHNIQUE: One view of the chest was acquired. COMPARISON: [facility], CR, XR CHEST 1V, 07/21/2018, 11:00. [facility], CR, XR CHEST 1V, 07/08/2018, 11:07. FINDINGS: Surgical changes and devices: Tip of the right internal jugular central venous catheter projects near the superior cavoatrial junction. Lungs and pleura: Lung volumes are low. Mild elevation of the left hemidiaphragm as before. Minimal streaky left basilar opacities present. No pleural effusions or pneumothorax. Mediastinum: Mediastinal contours appear normal. Heart size is normal. Bones and chest wall: No suspicious bony lesions. Overlying soft tissues appear unremarkable. IMPRESSION: 1. Tip of the right internal jugular central venous catheter projects near the superior cavoatrial junction. 2. No pneumothorax. 3. Low lung volumes with minimal left basilar opacities probably representing atelectasis. Dictated by: Abel Camarillo M.D. on 04/17/2022 at 15:49 Approved by: Abel Camarillo M.D. on 04/17/2022 at 15:51
[2022-04-17] MEDS: HEPARIN 5,000 UNIT/ML VIAL 5000 UNIT IV (14:26)
[2022-04-17] MEDS: HEPARIN DRIP 25,000 UNIT/500 ML IV.SOLN 19.595 UNIT IV (14:27)
--- NOTE | 2022-04-17 14:45 | PC.NURSE ---
right IJ triple lumen placed by Dr Kent sutured in place
[2022-04-17] MEDS: LORazepam 2 MG/ML INJ 0.5 MG IV ×2 (15:31→15:44)
--- NOTE | 2022-04-17 15:45 | PC.NURSE ---
prn ativan push dose 2
--- NOTE | 2022-04-17 15:58 | PC.NURSE ---
at 1445 dr. merrill starting central line procedure, per protocol. pt requested to sit up during states its harder to breathe, pt left at 30 degrees, pt desirae requested to lower pt. placed pt on 2L O2, pt in flat bed, central line placed immediately, pt brought back up into sitting position, pt remained short of breath. raised O2 to 3L, pt requested urinal, pt output about 300ml, pt appeared more short of breath. pt levophed stopped (per emr note) pt sats 92% down to 86% poor pleth, nonrebreather placed while Dr merrill was notified. RT in room to place bipap. pt wiggling in bed requesting to stand up. explained that was not a safe option. pt states its his RLS, Dr merrill ordered lorazepam iv and Urinary Catheter placement.
[2022-04-17] MEDS: MIDAZOLAM 2 MG/2 ML VIAL IV (16:14)
--- NOTE | 2022-04-17 16:29 | PC.NURSE ---
pt and spouse were concerned about sequeira cath placement due to his recent procedure/ stent in ureter/kidney. dr merrill aware.
--- NOTE | 2022-04-17 16:31 | PC.NURSE ---
pt calmer, resting in bed eyes closed, on bipap, at bs.
[2022-04-17] MEDS: FUROSEMIDE 40 MG/4 ML VIAL 20 MG IV (16:52)
--- NOTE | 2022-04-17 17:45 | PM.CN.EICU ---
History of Present Illness Consult details IF CAMERA ACTIVATED, patient seen via real-time interactive audiovisual communication: Camera activated Date Patient Seen: 04/17/22 Chief complaint: GLF Reason for consult: Acute hypoxemia respiratory failure Requesting provider: Susan Neil Consent obtained for tele-communication spec care: Yes Patient Location: ICU Provider location (State): [place] Other participants/roles: RN and Dr. Felipe Narrative: Patient is a 76 year old male with history of DM, PVD, asthma, and kidney stones s/p lithotripsy on 04/15/22 who presents to the ER after falling off of his recumbent bike due to difficulty balancing. He hit his head with minor abrasion on the right side of his eye. EMS called and on arrival to the ER he was hypotensive which he was given 3 liters of crystalloid bolus. He later became hypoxia which he was given lasix 20 mg and placed on BiPAP. CXR showed no obvious dense consolidation. CTH negative for any acute abnormality. CT C spine showed no evidence of fracture. He was tachycardia to the 140s and given adenosine which confirmed sinus tachycardia rather than A fib. UA showed numerous bacteria consistent with UTI. Admitted to ICU for further management. CTH: ?Unremarkable intracranial study for age, without definite acute intracranial hemorrhage. CT C Spine: No evidence of fracture or traumatic malalignment. ? Multilevel degenerative disc disease and arthropathy results in varying degrees of central and foraminal stenosis including moderate central stenosis C5-6 and C6-7 XR R knee: Severe right knee osteoarthritis and moderate knee joint effusion.? Arterial atherosclerosis. ? No acute radiographic findings. If pain persists, followup imaging in 5-7 days is recommended to exclude occult fracture. [facility] Medical History (Updated 04/17/22 @ 15:35 by Apple Kent MD) Arthritis Bilateral nephrolithiasis Jonumry-Ajxsn-Jqvvl disease Colon cancer Diabetes mellitus treated with oral medication Hernia Hypertension, essential Mixed hyperlipidemia Peripheral vascular disease of extremity Sleep apnea in adult Surgical History Hx of cystoscopy (10/16/21) Hx of cystoscopy (12/03/21) Hx of cystoscopy (03/25/22) S/P ureteral stent placement Status post colectomy (~1995) Status post vascular bypass Family History Father Ulcer History of blood clots Mother No known problems Social History marital status: household members: spouse lives independently: Yes occupational status: other Smoking Status: Former smoker alcohol intake: current substance use type: does not use Type(s) of exercise: bicycling frequency: 1-2 times per week Current Medications Current Medications Medications: Home Medications atenolol 50 mg tablet 50 mg PO DAILY #90 tabs 05/31/21 [Rx Confirmed 04/15/22] clopidogrel 75 mg tablet (Plavix) 75 mg PO DAILY #90 tabs 05/31/21 [Rx Confirmed 04/15/22] lisinopril 5 mg tablet 5 mg PO DAILY #90 tabs 05/31/21 [Rx Confirmed 04/15/22] atorvastatin 20 mg tablet (Lipitor) 20 mg PO BEDTIME #90 tabs 07/30/21 [Rx Confirmed 04/15/22] albuterol sulfate 90 mcg/actuation aerosol inhaler (ProAir HFA) 1 puff inhalation Q6H PRN shortness of breath or wheezing #8.5 grams 08/30/21 [Rx Confirmed 04/15/22] colchicine 0.6 mg tablet 0.6 mg PO DAILY #30 tabs 11/29/21 [Rx Confirmed 04/15/22] metformin 1,000 mg tablet 1,000 mg PO BID #180 tabs 12/10/21 [Rx Confirmed 04/15/22] alprazolam 0.5 mg tablet 0.5 mg PO DAILY #1 tab 12/20/21 [Rx Confirmed 04/15/22] ropinirole 4 mg tablet 8 mg PO BEDTIME #180 tabs 02/18/22 [Rx Confirmed 04/15/22] potassium citrate 10 mEq (1,080 mg) tablet,extended release 10 meq PO TID #270 tabs 03/19/22 [Rx Confirmed 04/15/22] oxycodone 5 mg tablet 5 mg PO Q4H PRN pain #14 tabs 04/15/22 [Rx] Visit Medications (administered) Generic Name Dose Route Start Last Admin Trade Name Freq PRN Reason Stop Dose Admin Hydromorphone HCl 0.5 mg 04/17/22 13:05 04/17/22 13:10 Hydromorphone 0.5 Mg Inj IV 0.5 mg Q15MIN PRN Administration Pain, NOREPINEPHRINE BITARTRATE/D5W 4 mg in 250 mls @ 30 mls/hr 04/17/22 13:49 04/17/22 17:05 Levophed IV 4 mcg/min TITRATE MARICARMEN 15 mls/hr Titration Protocol 8 MCG/MIN Heparin Sodium/Dextrose 25,000 unit in 500 mls @ 19.595 mls/hr 04/17/22 14:15 04/17/22 14:27 Heparin Drip IV 12 units/kg/hr CONT MARICARMEN 19.595 mls/hr Administration Protocol 12 UNITS/KG/HR Exam Vital Signs (past 8 hours): - 04/17/22 10:25 04/17/22 11:09 04/17/22 10:36 Temperature 99.7 F H 99.7 F H Pulse Rate 122 H 122 H Respiratory Rate 18 20 Blood Pressure 135/94 H 97/54 L 135/94 H Pulse Oximetry 98 98 Oxygen Delivery Method Nasal Cannula Nasal Cannula Oxygen Flow Rate 2 2 Fraction of Inspired Oxygen 04/17/22 10:36 04/17/22 11:00 04/17/22 11:06 Temperature Pulse Rate 130 H 121 H 122 H Respiratory Rate 20 20 20 Blood Pressure Pulse Oximetry 98 98 Oxygen Delivery Method Oxygen Flow Rate Fraction of Inspired Oxygen 04/17/22 11:07 04/17/22 11:07 04/17/22 11:15 Temperature Pulse Rate 123 H 121 H Respiratory Rate 20 22 Blood Pressure 97/54 L Pulse Oximetry 99 99 Oxygen Delivery Method Oxygen Flow Rate Fraction of Inspired Oxygen 04/17/22 11:16 04/17/22 11:16 04/17/22 11:30 Temperature Pulse Rate 122 H Respiratory Rate 22 Blood Pressure 87/56 L 105/60 Pulse Oximetry 99 Oxygen Delivery Method Oxygen Flow Rate Fraction of Inspired Oxygen 04/17/22 11:30 04/17/22 11:43 04/17/22 11:43 Temperature Pulse Rate 121 H 121 H Respiratory Rate 22 22 Blood Pressure 113/55 L Pulse Oximetry 99 99 Oxygen Delivery Method Oxygen Flow Rate Fraction of Inspired Oxygen 04/17/22 11:45 04/17/22 11:45 04/17/22 12:00 Temperature Pulse Rate 122 H Respiratory Rate 22 Blood Pressure 111/58 L 105/61 Pulse Oximetry 100 Oxygen Delivery Method Oxygen Flow Rate Fraction of Inspired Oxygen 04/17/22 12:00 04/17/22 12:27 04/17/22 12:30 Temperature Pulse Rate 118 H 121 H Respiratory Rate 20 Blood Pressure 110/60 Pulse Oximetry 100 Oxygen Delivery Method Oxygen Flow Rate Fraction of Inspired Oxygen 04/17/22 12:30 04/17/22 12:45 04/17/22 12:45 Temperature Pulse Rate 118 H 117 H Respiratory Rate 30 H Blood Pressure 96/51 L Pulse Oximetry 99 96 Oxygen Delivery Method Oxygen Flow Rate Fraction of Inspired Oxygen 04/17/22 13:00 04/17/22 13:01 04/17/22 13:01 Temperature Pulse Rate 116 H 120 H Respiratory Rate 21 Blood Pressure 92/57 L Pulse Oximetry 94 93 Oxygen Delivery Method Oxygen Flow Rate Fraction of Inspired Oxygen 04/17/22 13:15 04/17/22 13:16 04/17/22 13:16 Temperature Pulse Rate 117 H 117 H Respiratory Rate 31 H 32 H Blood Pressure 80/56 L Pulse Oximetry 92 92 Oxygen Delivery Method Oxygen Flow Rate Fraction of Inspired Oxygen 04/17/22 13:26 04/17/22 13:26 04/17/22 13:30 Temperature Pulse Rate 118 H Respiratory Rate 22 Blood Pressure 79/49 L 79/40 L Pulse Oximetry 93 Oxygen Delivery Method Oxygen Flow Rate Fraction of Inspired Oxygen 04/17/22 13:30 04/17/22 13:45 04/17/22 13:45 Temperature Pulse Rate 117 H 120 H Respiratory Rate 22 22 Blood Pressure 110/60 Pulse Oximetry 91 92 Oxygen Delivery Method Oxygen Flow Rate Fraction of Inspired Oxygen 04/17/22 14:00 04/17/22 14:04 04/17/22 14:04 Temperature Pulse Rate 121 H 123 H Respiratory Rate 26 H 25 H Blood Pressure 99/52 L Pulse Oximetry 93 93 Oxygen Delivery Method Oxygen Flow Rate Fraction of Inspired Oxygen 04/17/22 14:15 04/17/22 14:16 04/17/22 14:16 Temperature Pulse Rate 120 H 121 H Respiratory Rate 28 H 25 H Blood Pressure 127/52 L Pulse Oximetry 93 93 Oxygen Delivery Method Oxygen Flow Rate Fraction of Inspired Oxygen 04/17/22 14:30 04/17/22 14:30 04/17/22 14:45 Temperature Pulse Rate 121 H Respiratory Rate 26 H Blood Pressure 125/58 L 165/73 H Pulse Oximetry 95 Oxygen Delivery Method Oxygen Flow Rate Fraction of Inspired Oxygen 04/17/22 14:45 04/17/22 15:00 04/17/22 15:01 Temperature Pulse Rate 121 H 135 H Respiratory Rate 27 H 28 H Blood Pressure 168/134 H Pulse Oximetry 95 94 Oxygen Delivery Method Oxygen Flow Rate Fraction of Inspired Oxygen 04/17/22 15:01 04/17/22 15:10 04/17/22 15:10 Temperature Pulse Rate 126 H 135 H Respiratory Rate 33 H Blood Pressure 156/123 H Pulse Oximetry 88 L 94 Oxygen Delivery Method Room Air Nasal Cannula Oxygen Flow Rate 2 Fraction of Inspired Oxygen 04/17/22 16:00 04/17/22 15:14 04/17/22 15:14 Temperature Pulse Rate 138 H Respiratory Rate 34 H Blood Pressure 129/106 H 162/133 H Pulse Oximetry 88 L Oxygen Delivery Method Nasal Cannula Oxygen Flow Rate 2 Fraction of Inspired Oxygen 45 04/17/22 15:15 04/17/22 15:16 04/17/22 15:16 Temperature Pulse Rate 138 H 137 H Respiratory Rate 34 H 33 H Blood Pressure 179/76 H Pulse Oximetry 90 L 86 L Oxygen Delivery Method Nasal Cannula Nasal Cannula Oxygen Flow Rate 2 2 Fraction of Inspired Oxygen 04/17/22 15:30 04/17/22 15:30 04/17/22 15:41 Temperature Pulse Rate 147 H 150 H Respiratory Rate 60 H 60 H Blood Pressure 179/81 H Pulse Oximetry 89 L 97 Oxygen Delivery Method Non -Rebreather BiPAP Oxygen Flow Rate 15 Fraction of Inspired Oxygen 04/17/22 15:41 04/17/22 15:45 04/17/22 15:50 Temperature Pulse Rate 151 H Respiratory Rate 35 H Blood Pressure 203/94 H 129/106 H Pulse Oximetry 98 Oxygen Delivery Method BiPAP Oxygen Flow Rate Fraction of Inspired Oxygen 04/17/22 15:50 04/17/22 16:00 04/17/22 16:15 Temperature Pulse Rate 151 H 150 H 147 H Respiratory Rate 42 H 53 H 51 H Blood Pressure Pulse Oximetry 86 L 97 88 L Oxygen Delivery Method BiPAP BiPAP BiPAP Oxygen Flow Rate Fraction of Inspired Oxygen 04/17/22 16:30 04/17/22 16:45 04/17/22 17:15 Temperature Pulse Rate 141 H 143 H Respiratory Rate 37 H 33 H Blood Pressure 100/56 L Pulse Oximetry 93 99 Oxygen Delivery Method BiPAP BiPAP Oxygen Flow Rate Fraction of Inspired Oxygen 04/17/22 17:00 04/17/22 17:01 04/17/22 17:01 Temperature Pulse Rate 140 H 141 H Respiratory Rate 33 H 32 H Blood Pressure 75/48 L Pulse Oximetry 96 96 Oxygen Delivery Method Oxygen Flow Rate Fraction of Inspired Oxygen 04/17/22 17:03 04/17/22 17:03 04/17/22 17:06 Temperature Pulse Rate 140 H 140 H Respiratory Rate 32 H 32 H Blood Pressure 88/60 L Pulse Oximetry 95 96 Oxygen Delivery Method Oxygen Flow Rate Fraction of Inspired Oxygen 04/17/22 17:07 04/17/22 17:24 04/17/22 17:25 Temperature Pulse Rate 144 H Respiratory Rate 30 H Blood Pressure 90/54 L 133/60 Pulse Oximetry 99 Oxygen Delivery Method Oxygen Flow Rate Fraction of Inspired Oxygen 04/17/22 17:25 Temperature Pulse Rate 144 H Respiratory Rate 29 H Blood Pressure Pulse Oximetry 99 Oxygen Delivery Method Oxygen Flow Rate Fraction of Inspired Oxygen Fraction of Inspired Oxygen 45 Oxygen Delivery Method BiPAP Oxygen Flow Rate 15 Narrative Exam Narrative: On BiPAP and attempting to remove mask Objective Labs Result Diagrams: 04/17/22 10:45 04/17/22 10:45 Labs: Laboratory Results - last 24 hr 04/17/22 04/17/22 04/17/22 10:45 10:45 10:45 WBC 6.2 RBC 3.40 L Hgb 10.3 L Hct 30.5 L MCV 89.8 MCH 30.4 MCHC 33.9 RDW 14.1 Plt Count 108 L Neut % (Auto) 90.6 H Lymph % (Auto) 2.3 L [place] % (Auto) 6.5 Eos % (Auto) 0.5 L Baso % (Auto) 0.1 Neut # (Auto) 5700 Lymph # (Auto) 100 L [place] # (Auto) 400 Eos # (Auto) 0 Baso # (Auto) 0 Sodium 134 L Potassium 4.8 Chloride 104 Carbon Dioxide 18 L BUN 21 H Creatinine 0.92 Estimated GFR > 60 BUN/Creatinine Ratio 22.8 H Glucose 274 H Lactate 3.5 H Calcium 8.0 L Magnesium 1.3 L Total Bilirubin 0.5 AST 24 ALT 24 Alkaline Phosphatase 50 Troponin I 0.106 H Total Protein 5.9 L Albumin 3.4 L Globulin 2.5 Albumin/Globulin Ratio 1.4 Procalcitonin 0.73 H Urine Color Urine Appearance Urine pH Ur Specific [place] Urine Protein Urine Glucose (UA) Urine Ketones Urine Occult Blood Urine Nitrate Urine Bilirubin Urine Urobilinogen Ur Leukocyte Esterase Urine RBC Urine WBC Ur Squamous Epith Cells Urine Bacteria Ur Culture Indicated? SARS-CoV-2 (PCR) 04/17/22 04/17/22 04/17/22 10:45 12:10 12:47 WBC RBC Hgb Hct MCV MCH MCHC RDW Plt Count Neut % (Auto) Lymph % (Auto) [place] % (Auto) Eos % (Auto) Baso % (Auto) Neut # (Auto) Lymph # (Auto) [place] # (Auto) Eos # (Auto) Baso # (Auto) Sodium Potassium Chloride Carbon Dioxide BUN Creatinine Estimated GFR BUN/Creatinine Ratio Glucose Lactate Calcium Magnesium Total Bilirubin AST ALT Alkaline Phosphatase Troponin I 0.470 H* Total Protein Albumin Globulin Albumin/Globulin Ratio Procalcitonin Urine Color Brown Urine Appearance Cloudy Urine pH 5.0 Ur Specific [place] 1.015 Urine Protein 2+ H Urine Glucose (UA) 1+ H Urine Ketones Negative Urine Occult Blood 3+ H Urine Nitrate Positive H Urine Bilirubin Negative Urine Urobilinogen 0.2 Ur Leukocyte Esterase 1+ H Urine RBC >100/hpf H Urine WBC >100/hpf H Ur Squamous Epith Cells 1-5 /hpf Urine Bacteria Many (>30) H Ur Culture Indicated? Specimen cultured SARS-CoV-2 (PCR) Negative 04/17/22 13:35 WBC RBC Hgb Hct MCV MCH MCHC RDW Plt Count Neut % (Auto) Lymph % (Auto) [place] % (Auto) Eos % (Auto) Baso % (Auto) Neut # (Auto) Lymph # (Auto) [place] # (Auto) Eos # (Auto) Baso # (Auto) Sodium Potassium Chloride Carbon Dioxide BUN Creatinine Estimated GFR BUN/Creatinine Ratio Glucose Lactate 2.1 Calcium Magnesium Total Bilirubin AST ALT Alkaline Phosphatase Troponin I Total Protein Albumin Globulin Albumin/Globulin Ratio Procalcitonin Urine Color Urine Appearance Urine pH Ur Specific [place] Urine Protein Urine Glucose (UA) Urine Ketones Urine Occult Blood Urine Nitrate Urine Bilirubin Urine Urobilinogen Ur Leukocyte Esterase Urine RBC Urine WBC Ur Squamous Epith Cells Urine Bacteria Ur Culture Indicated? SARS-CoV-2 (PCR) Assessment & Plan Assessment & Plan narrative: NEURO: # Acute encephalopathy -- Secondary to UTI and sedatives received in the ER -- Start precedex to titrate for RASS goal 0 -- Avoid BZD -- Cont frequent reorientation -- Daily CAM ICU RESP: # Acute hypoxemia respiratory failure -- CXR showed no obvious dense consolidation -- Ddx includes aspiration vs PE vs PNA -- Agreed with zosyn -- Check CTA PE study -- Cont BiPAP support -- HOB elevation -- Aspiration precaution -- Goal SpO2 > 88% CVS: # Elevated troponin -- No EKG available to review -- Ddx includes ACS vs demand ischemia -- On heparin infusion -- Start ASA and lipitor -- Check TTE -- Trend troponin X 3 ID: # UTI -- Check urine cx -- On zosyn : # Hematuria -- s/p lithotripsy 04/15 -- If hematuria continues to worsen then will need urology consultation and hold heparin infusion HEME: # Anemia -- Secondary to hematuria and chronic illness -- Trend CBC -- GOal Hb > 7 ENDO: # DM -- Start ISS -- Goal BS < 180 D/w Dr. Felipe, RN, patient, and family at bedside. Time Spent With Patient Critical Care time: I spent a total of 35 minutes of critical care time on this patient's care today; this time is exclusive of procedural time.
[2022-04-17 17:57] LABS: PTT Partial Thromboplastin Tim 77 SECONDS (26-36)
[2022-04-17] MEDS: dexmedeTOMIDine in 0.9 % NaCL 400 MCG/100 ML PLAST..BAG IV (17:57)
--- NOTE | 2022-04-17 18:15 | DI.RAD.S_ITS ---
PROCEDURE: XR CHEST 1V INDICATIONS: line pulled TECHNIQUE: One view of the chest was acquired. COMPARISON: [facility], CR, XR CHEST 1V, 04/17/2022, 14:56. FINDINGS: Surgical changes and devices: Right IJ central venous line appears to be in relatively stable position given patient positioning. There are overlying monitoring wires. Lungs and pleura: Asymmetric left hemidiaphragm elevation and small left pleural effusion. Mediastinum: Mediastinal contours appear normal. Heart size is normal. Bones and chest wall: No suspicious bony lesions. Overlying soft tissues appear unremarkable. IMPRESSION: 1. Fairly stable appearance of right CVL with tip near the cavoatrial junction region. 2. Small left pleural effusion. Dictated by: Chaya Pugh M.D. on 04/17/2022 at 19:12 Approved by: Chaya Pugh M.D. on 04/17/2022 at 19:13
[2022-04-17] MEDS: PIPERACILLIN/TAZO 3.375 GM in SODIUM CHLORIDE 0.9% 100 ML IV (20:01)
--- NOTE | 2022-04-17 20:19 | PM.ICURNDS ---
- Date Patient Seen: 04/17/22 Time Patient Seen: 20:19 :: This patient was seen via real time interactive two-way audiovisual telecommunication. Note: Patient is in shock on levophed 12 mcg. He is febrile up to 102.9. Added vasopressin and stress dose steroids. Blood cx and urine cx sent. Will hold off on CTA PE study given patient is unable to lay flat and already on heparin infusion. Check ABG and EKG. D/w RN at bedside.
[2022-04-17] MEDS: VASOPRESSIN 40 UNIT in SODIUM CHLORIDE 0.9% 100 ML 4.5 UNIT IV (20:47)
--- NOTE | 2022-04-17 20:52 | P.HP_ITS ---
History of Present Illness History of Present Illness Date Patient Seen: 04/17/22 Time Patient Seen: 20:00 Chief complaint: NSTEMI, UTI sepsis, ARF w/hypoxia Narrative: Patient is unable to provide me with a history as he is on BiPap and on a Precedex drip. History is provided by reviewing notes, discussion with ICU nursing staff. Shantanu Underwood is a 76 y.o. male with a history of Bzrronk-Abvmn-Ektzm, diabetes, peripheral vascular disease on clopidogrel, a sthma, kidney stones who presents after falling off his recumbent bike in his garage this morning.? He had lithotripsy on April 15 but notes otherwise? he was in his usual state of health this morning and was mounting his recumbent bike, lost his balance, fell off, hitting his head on the floor and ending up in an odd position with his head on the floor his leg still on the bike and unable to move.? When medics arrived he was alert orient to name only, had a minor abrasion the right side of his eye skin tears on the left anterior ferrell. He was initially moderately hypotensive with a systolic pressure at 86 them after a 500 cc boluses come up to 95. ??At the time of arrival to the ED, he denied any recent fever, cough, chills, abdominal pain, vomiting, diarrhea and told them he has chronic lower extremity weakness from his Bbsjobz-Qfbwb-Qxsmt disease whch was essentially unchanged. While in the ED, he became progressively hypotensive and they repeated a lactate as well as a troponin. He was determined to have a UTI and started on IV antibiotics. They started him on a trial of Levophed and given the length of time required, they placed a central line. Apparently after the placement of a central line he became more hypotensive and hypoxic. He was noted to be increasingly tachycardic and agitated. At that point they administered Ativan and then eventually placed him on a Precedex drip. They also placed a Sequeira. His initial troponin was elevated at 0.106 considered to be indeterminate and then a repeat troponin was done 2 hours later and it increased to 0.470, the patient was subsequently placed on heparin drip. EKG only indicated sinus tachycardia with left axis deviation. At that point the ED provider attempted to have the patient transferred to a tertiary facility and apparently no beds were available at [facility]. They discussed his case with Cardiology and the patient was administered 20 mg of IV Lasix. Cardiology felt that the patient could be medically managed on a heparin drip. Patient was admitted to the hospitalist service sometime in the at late afternoon and early evening. Chest x-ray was done to confirm central line placement which indicated a mild elevation of the left steve diagram with minimal streaky left basilar opacities. He was negative for pneumothorax and noted low lung volumes, likely atelectasis. Initially the patient was afebrile on presentation to the emergency department but then at around 5:00 p.m. he started to develop fevers and had a T-max of 103? and is currently 102.9. Patient's blood pressures have been very labile, initially presented with a blood pressure of 106/64, his lowest blood pressure was 63/41 and is currently 118/63, his heart rate is currently 80, respiratory rate is set at 16 with an oxygen saturation of 97% on TD of 450, FiO2 of 60%, PEEP 6. He weighs 85 kg with a BMI of 25.4. His hemoglobin and hematocrit are 10.3 and 30.5% respectively, platelet count 108, sodium 134 bicarb 18 BUN 21 glucose 274 A1c is 6.6 lactate was initially 3.1 and is now 2.1, calcium 8.0 Mag 1.3 which will be repleted albumin 3.4 procalcitonin was 0.73, UA is positive for nitrates and bacteria, and COVID-19 PCR is negative. Patient History Medical History Anticoagulated on heparin Arthritis Bilateral nephrolithiasis Oycbuwr-Xaxit-Qtxtw disease Colon cancer Diabetes mellitus treated with oral medication Hernia Hypertension, essential Mixed hyperlipidemia Peripheral vascular disease of extremity Sleep apnea in adult Surgical History Hx of cystoscopy (10/16/21) Hx of cystoscopy (12/03/21) Hx of cystoscopy (03/25/22) S/P ureteral stent placement Status post colectomy (~1995) Status post vascular bypass Family & Social History Family History Father Ulcer History of blood clots Mother No known problems Social History: household members spouse lives independently Yes Safety & Behavioral: Feels Safe in Current Yes Environment Been Physically Hurt or No Threatened By a Person Tobacco & Substance use: Tobacco type cigarettes Smoking Status Former smoker alcohol intake current alcohol intake frequency a few times a month Substance Use Type does not use Meds Home Medications and Allergies Home Medications Medication Instructions Recorded Confirmed Type atenolol 50 mg tablet 50 mg PO DAILY #90 tabs 05/31/21 04/15/22 Rx clopidogrel 75 mg tablet (Plavix) 75 mg PO DAILY #90 tabs 05/31/21 04/15/22 Rx lisinopril 5 mg tablet 5 mg PO DAILY #90 tabs 05/31/21 04/15/22 Rx atorvastatin 20 mg tablet (Lipitor) 20 mg PO BEDTIME #90 tabs 07/30/21 04/15/22 Rx albuterol sulfate 90 mcg/actuation 1 puff inhalation Q6H PRN 08/30/21 04/15/22 Rx aerosol inhaler (ProAir HFA) shortness of breath or wheezing #8.5 grams colchicine 0.6 mg tablet 0.6 mg PO DAILY #30 tabs 11/29/21 04/15/22 Rx metformin 1,000 mg tablet 1,000 mg PO BID #180 tabs 12/10/21 04/15/22 Rx alprazolam 0.5 mg tablet 0.5 mg PO DAILY #1 tab 12/20/21 04/15/22 Rx ropinirole 4 mg tablet 8 mg PO BEDTIME #180 tabs 02/18/22 04/15/22 Rx potassium citrate 10 mEq (1,080 10 meq PO TID #270 tabs 03/19/22 04/15/22 Rx mg) tablet,extended release oxycodone 5 mg tablet 5 mg PO Q4H PRN pain #14 tabs 04/15/22 Rx Allergies Allergy/AdvReac Type Severity Reaction Status Date / Time No Known Drug Allergies Allergy Verified 04/15/22 09:44 Review of Systems Review of Systems ROS: Yes All systems reviewed with the patient and are negative except as otherwise documented Exam Vital Signs (past 8 hours): - 04/17/22 13:00 04/17/22 13:01 04/17/22 13:01 Temperature Pulse Rate 116 H 120 H Respiratory Rate 21 Blood Pressure 92/57 L Pulse Oximetry 94 93 Oxygen Delivery Method Oxygen Flow Rate Fraction of Inspired Oxygen 04/17/22 13:15 04/17/22 13:16 04/17/22 13:16 Temperature Pulse Rate 117 H 117 H Respiratory Rate 31 H 32 H Blood Pressure 80/56 L Pulse Oximetry 92 92 Oxygen Delivery Method Oxygen Flow Rate Fraction of Inspired Oxygen 04/17/22 13:26 04/17/22 13:26 04/17/22 13:30 Temperature Pulse Rate 118 H Respiratory Rate 22 Blood Pressure 79/49 L 79/40 L Pulse Oximetry 93 Oxygen Delivery Method Oxygen Flow Rate Fraction of Inspired Oxygen 04/17/22 13:30 04/17/22 13:45 04/17/22 13:45 Temperature Pulse Rate 117 H 120 H Respiratory Rate 22 22 Blood Pressure 110/60 Pulse Oximetry 91 92 Oxygen Delivery Method Oxygen Flow Rate Fraction of Inspired Oxygen 04/17/22 14:00 04/17/22 14:04 04/17/22 14:04 Temperature Pulse Rate 121 H 123 H Respiratory Rate 26 H 25 H Blood Pressure 99/52 L Pulse Oximetry 93 93 Oxygen Delivery Method Oxygen Flow Rate Fraction of Inspired Oxygen 04/17/22 14:15 04/17/22 14:16 04/17/22 14:16 Temperature Pulse Rate 120 H 121 H Respiratory Rate 28 H 25 H Blood Pressure 127/52 L Pulse Oximetry 93 93 Oxygen Delivery Method Oxygen Flow Rate Fraction of Inspired Oxygen 04/17/22 14:30 04/17/22 14:30 04/17/22 14:45 Temperature Pulse Rate 121 H Respiratory Rate 26 H Blood Pressure 125/58 L 165/73 H Pulse Oximetry 95 Oxygen Delivery Method Oxygen Flow Rate Fraction of Inspired Oxygen 04/17/22 14:45 04/17/22 15:00 04/17/22 15:01 Temperature Pulse Rate 121 H 135 H Respiratory Rate 27 H 28 H Blood Pressure 168/134 H Pulse Oximetry 95 94 Oxygen Delivery Method Oxygen Flow Rate Fraction of Inspired Oxygen 04/17/22 15:01 04/17/22 15:10 04/17/22 15:10 Temperature Pulse Rate 126 H 135 H Respiratory Rate 33 H Blood Pressure 156/123 H Pulse Oximetry 88 L 94 Oxygen Delivery Method Room Air Nasal Cannula Oxygen Flow Rate 2 Fraction of Inspired Oxygen 04/17/22 16:00 04/17/22 15:14 04/17/22 15:14 Temperature Pulse Rate 138 H Respiratory Rate 34 H Blood Pressure 129/106 H 162/133 H Pulse Oximetry 88 L Oxygen Delivery Method Nasal Cannula Oxygen Flow Rate 2 Fraction of Inspired Oxygen 45 04/17/22 15:15 04/17/22 15:16 04/17/22 15:16 Temperature Pulse Rate 138 H 137 H Respiratory Rate 34 H 33 H Blood Pressure 179/76 H Pulse Oximetry 90 L 86 L Oxygen Delivery Method Nasal Cannula Nasal Cannula Oxygen Flow Rate 2 2 Fraction of Inspired Oxygen 04/17/22 15:30 04/17/22 15:30 04/17/22 15:41 Temperature Pulse Rate 147 H 150 H Respiratory Rate 60 H 60 H Blood Pressure 179/81 H Pulse Oximetry 89 L 97 Oxygen Delivery Method Non -Rebreather BiPAP Oxygen Flow Rate 15 Fraction of Inspired Oxygen 04/17/22 15:41 04/17/22 15:45 04/17/22 15:50 Temperature Pulse Rate 151 H Respiratory Rate 35 H Blood Pressure 203/94 H 129/106 H Pulse Oximetry 98 Oxygen Delivery Method BiPAP Oxygen Flow Rate Fraction of Inspired Oxygen 04/17/22 15:50 04/17/22 16:00 04/17/22 16:15 Temperature Pulse Rate 151 H 150 H 147 H Respiratory Rate 42 H 53 H 51 H Blood Pressure Pulse Oximetry 86 L 97 88 L Oxygen Delivery Method BiPAP BiPAP BiPAP Oxygen Flow Rate Fraction of Inspired Oxygen 04/17/22 16:30 04/17/22 16:45 04/17/22 17:15 Temperature Pulse Rate 141 H 143 H Respiratory Rate 37 H 33 H Blood Pressure 100/56 L Pulse Oximetry 93 99 Oxygen Delivery Method BiPAP BiPAP Oxygen Flow Rate Fraction of Inspired Oxygen 04/17/22 17:00 04/17/22 17:01 04/17/22 17:01 Temperature Pulse Rate 140 H 141 H Respiratory Rate 33 H 32 H Blood Pressure 75/48 L Pulse Oximetry 96 96 Oxygen Delivery Method Oxygen Flow Rate Fraction of Inspired Oxygen 04/17/22 17:03 04/17/22 17:03 04/17/22 17:06 Temperature Pulse Rate 140 H 140 H Respiratory Rate 32 H 32 H Blood Pressure 88/60 L Pulse Oximetry 95 96 Oxygen Delivery Method Oxygen Flow Rate Fraction of Inspired Oxygen 04/17/22 17:07 04/17/22 17:24 04/17/22 17:25 Temperature Pulse Rate 144 H Respiratory Rate 30 H Blood Pressure 90/54 L 133/60 Pulse Oximetry 99 Oxygen Delivery Method Oxygen Flow Rate Fraction of Inspired Oxygen 04/17/22 17:25 04/17/22 17:15 04/17/22 17:30 Temperature 103 F H Pulse Rate 144 H Respiratory Rate 29 H Blood Pressure 127/57 L Pulse Oximetry 99 Oxygen Delivery Method Oxygen Flow Rate Fraction of Inspired Oxygen 04/17/22 17:30 04/17/22 17:45 04/17/22 17:59 Temperature Pulse Rate 143 H 137 H Respiratory Rate 31 H 32 H Blood Pressure 70/50 L Pulse Oximetry 93 96 Oxygen Delivery Method Oxygen Flow Rate Fraction of Inspired Oxygen 04/17/22 17:59 04/17/22 18:00 04/17/22 18:01 Temperature Pulse Rate 133 H 132 H Respiratory Rate 32 H 32 H Blood Pressure 83/48 L Pulse Oximetry 97 98 Oxygen Delivery Method Oxygen Flow Rate Fraction of Inspired Oxygen 04/17/22 18:01 04/17/22 18:15 04/17/22 18:16 Temperature Pulse Rate 132 H 121 H 118 H Respiratory Rate 44 H 26 H 29 H Blood Pressure Pulse Oximetry 97 97 98 Oxygen Delivery Method Oxygen Flow Rate Fraction of Inspired Oxygen 04/17/22 18:16 04/17/22 18:30 04/17/22 18:45 Temperature Pulse Rate 111 H 83 Respiratory Rate 31 H 32 H Blood Pressure 61/45 L Pulse Oximetry 97 99 Oxygen Delivery Method Oxygen Flow Rate Fraction of Inspired Oxygen 04/17/22 18:48 04/17/22 18:48 04/17/22 18:50 Temperature Pulse Rate 83 83 Respiratory Rate 33 H 36 H Blood Pressure 63/41 L 63/41 L Pulse Oximetry 89 L 100 Oxygen Delivery Method Oxygen Flow Rate Fraction of Inspired Oxygen 04/17/22 19:00 04/17/22 19:00 04/17/22 19:15 Temperature Pulse Rate 87 90 Respiratory Rate 37 H 39 H Blood Pressure 70/50 L Pulse Oximetry 99 86 L Oxygen Delivery Method Oxygen Flow Rate Fraction of Inspired Oxygen 04/17/22 19:16 04/17/22 19:16 04/17/22 19:30 Temperature Pulse Rate 89 92 H Respiratory Rate 37 H 32 H Blood Pressure 75/55 L Pulse Oximetry 87 L 94 Oxygen Delivery Method Oxygen Flow Rate Fraction of Inspired Oxygen 04/17/22 19:36 04/17/22 19:36 04/17/22 19:45 Temperature Pulse Rate 93 H Respiratory Rate 32 H Blood Pressure 79/51 L 84/55 L Pulse Oximetry 96 Oxygen Delivery Method Oxygen Flow Rate Fraction of Inspired Oxygen 04/17/22 19:45 04/17/22 20:00 04/17/22 20:00 Temperature 98.2 F Pulse Rate 96 H 97 H Respiratory Rate 43 H 22 Blood Pressure 81/55 L Pulse Oximetry 95 96 Oxygen Delivery Method Oxygen Flow Rate Fraction of Inspired Oxygen 04/17/22 20:15 04/17/22 20:15 04/17/22 20:30 Temperature Pulse Rate 100 H Respiratory Rate 40 H Blood Pressure 80/54 L 81/53 L Pulse Oximetry 96 Oxygen Delivery Method Oxygen Flow Rate Fraction of Inspired Oxygen 04/17/22 20:30 Temperature Pulse Rate 98 H Respiratory Rate 40 H Blood Pressure Pulse Oximetry 96 Oxygen Delivery Method Oxygen Flow Rate Fraction of Inspired Oxygen Fraction of Inspired Oxygen 45 Oxygen Delivery Method BiPAP Oxygen Flow Rate 15 Narrative Exam Narrative: Gen: Sedated, seriously ill appearing 76 y.o. male, on BiPap HEENT: normocephalic, multiple superficial abrasions on head and face, eyes crusted, oral mucosa dry Neck: supple, full ROM, no JVD, trachea is midline Resp: Lungs CTA, on vent CV: RRR, no murmur or rubs Abd: soft, non-tender, normoactive BTs : sequeira draining blood streaked urine, adequate output Skin: left lower leg with multiple bleeding skin tears extending from below the knee to above the ankle Neuro: GCS of 10 Extremities: upper extremities restrained Psyche: sedated Objective ECG Impression: Sinus tachycardia w/left axis deviation, no ST changes noted. Labs Result Diagrams: 04/17/22 10:45 04/17/22 10:45 Labs: Laboratory Results - last 24 hr 04/17/22 04/17/22 04/17/22 10:45 10:45 10:45 WBC 6.2 RBC 3.40 L Hgb 10.3 L Hct 30.5 L MCV 89.8 MCH 30.4 MCHC 33.9 RDW 14.1 Plt Count 108 L Neut % (Auto) 90.6 H Lymph % (Auto) 2.3 L [place] % (Auto) 6.5 Eos % (Auto) 0.5 L Baso % (Auto) 0.1 Neut # (Auto) 5700 Lymph # (Auto) 100 L [place] # (Auto) 400 Eos # (Auto) 0 Baso # (Auto) 0 APTT Sodium 134 L Potassium 4.8 Chloride 104 Carbon Dioxide 18 L BUN 21 H Creatinine 0.92 Estimated GFR > 60 BUN/Creatinine Ratio 22.8 H Glucose 274 H Lactate 3.5 H Calcium 8.0 L Magnesium 1.3 L Total Bilirubin 0.5 AST 24 ALT 24 Alkaline Phosphatase 50 Troponin I 0.106 H Total Protein 5.9 L Albumin 3.4 L Globulin 2.5 Albumin/Globulin Ratio 1.4 Procalcitonin 0.73 H Urine Color Urine Appearance Urine pH Ur Specific Manning Urine Protein Urine Glucose (UA) Urine Ketones Urine Occult Blood Urine Nitrate Urine Bilirubin Urine Urobilinogen Ur Leukocyte Esterase Urine RBC Urine WBC Ur Squamous Epith Cells Urine Bacteria Ur Culture Indicated? SARS-CoV-2 (PCR) 04/17/22 04/17/22 04/17/22 10:45 12:10 12:47 WBC RBC Hgb Hct MCV MCH MCHC RDW Plt Count Neut % (Auto) Lymph % (Auto) [place] % (Auto) Eos % (Auto) Baso % (Auto) Neut # (Auto) Lymph # (Auto) [place] # (Auto) Eos # (Auto) Baso # (Auto) APTT Sodium Potassium Chloride Carbon Dioxide BUN Creatinine Estimated GFR BUN/Creatinine Ratio Glucose Lactate Calcium Magnesium Total Bilirubin AST ALT Alkaline Phosphatase Troponin I 0.470 H* Total Protein Albumin Globulin Albumin/Globulin Ratio Procalcitonin Urine Color Brown Urine Appearance Cloudy Urine pH 5.0 Ur Specific Manning 1.015 Urine Protein 2+ H Urine Glucose (UA) 1+ H Urine Ketones Negative Urine Occult Blood 3+ H Urine Nitrate Positive H Urine Bilirubin Negative Urine Urobilinogen 0.2 Ur Leukocyte Esterase 1+ H Urine RBC >100/hpf H Urine WBC >100/hpf H Ur Squamous Epith Cells 1-5 /hpf Urine Bacteria Many (>30) H Ur Culture Indicated? Specimen cultured SARS-CoV-2 (PCR) Negative 04/17/22 04/17/22 04/17/22 13:35 14:15 18:20 WBC RBC Hgb Hct MCV MCH MCHC RDW Plt Count Neut % (Auto) Lymph % (Auto) [place] % (Auto) Eos % (Auto) Baso % (Auto) Neut # (Auto) Lymph # (Auto) [place] # (Auto) Eos # (Auto) Baso # (Auto) APTT 77 H* Sodium Potassium Chloride Carbon Dioxide BUN Creatinine Estimated GFR BUN/Creatinine Ratio Glucose Lactate 2.1 Calcium Magnesium Total Bilirubin AST ALT Alkaline Phosphatase Troponin I 1.020 H* Total Protein Albumin Globulin Albumin/Globulin Ratio Procalcitonin Urine Color Urine Appearance Urine pH Ur Specific Manning Urine Protein Urine Glucose (UA) Urine Ketones Urine Occult Blood Urine Nitrate Urine Bilirubin Urine Urobilinogen Ur Leukocyte Esterase Urine RBC Urine WBC Ur Squamous Epith Cells Urine Bacteria Ur Culture Indicated? SARS-CoV-2 (PCR) Assessment & Plan Assessment & Plan narrative: Shantanu Underwood is admitted to the intensive care unit with septic and cardiogenic shock likely due to a urinary tract infection status post lithotripsy POD #2., NSTEMI, acute hypoxemic respiratory failure, anemia of chronic disease and diabetes type 2. Acute encephalopathy secondary to sepsis and cardiogenic shock, present on admission * Decision was made to intubate the patient to protect his airway, see anesthesia note * He was initially initiated on Precedex and after intubation that was discontinued and orders were for fentanyl/propofol drip * Allocation Analyst requested avoiding benzodiazepine * Encephalopathy likely due to UTI and possibly medications administered prior to receiving his central line Acute hypoxemia with respiratory failure, present on admission * Suspected PE, CTA of the chest was ordered, decision made to not have CTA done until the patient was stabilized. I have requested that nursing and RT try to get the patient down stairs for the CTA NSTEMI, acute, present on admission * Due to elevated troponins which are continuing to increase patient was started on heparin drip * Patient's case was discussed with Cardiology and with the 3rd increase and doubling of his troponin, requests have been made for patient transfer to tertiary facility with pulmonology and Cardiology however all beds are filled * His troponin appears to have peaked at 1.020 and subsequent troponin is now trending down * DX includes demand ischemia versus is ACS * He will receive oral medications via NG tube, started on atorvastatin 80 mg daily and will initiate aspirin and Plavix once he is off the heparin drip Sepsis secondary to UTI, acute, present on admission * He was started on piptaz and vancomycin * Lactate is trending down Hematuria, unknown if acute, present on admission * His urine output appears to be decreasing * Hold heparin drip if continued bleeding and consult with Urology Anemia likely anemia of chronic disease, present on admission * His H&H is close to his baseline however if it keeps dropping will need to hold the heparin drip * Daily CBC * Hemoglobin goal greater than 7 Diabetes type 2, well controlled with an A1c of 6.6 * His initial glucose was 274 * Start Lantus 5 units b.i.d. with medium dose correctional scale for strict glucose control VTE Prophylaxis: Wells risk score 7.5 X Bilateral SCDs Patient is currently anticoagulated on a heparin drip. Patient is admitted to the inpatient intensive care service due to the severity of disease, risks of further disease progression and this stay is expected to exceed 2 midnights. FEN: IV fluids: Saline lock, diet: NPO, labs: CBC, C/BMP, liver enzymes, Mag, PT/INR Consultants intercept ICU, Dr. Mendieta anesthesia, care and involvement in the patient?s care is appreciated. Dispo: Attempting to have patient transferred to a tertiary facility with ICU, pulmonology, Cardiology, and Urology. Code status: Full code presumed as discussed with the patient who identifies his , Jayla as his surrogate and POA. Updated Jayla his . [X] I have utilized all available immediate resources to obtain, update, or review of the patient's current medications VTE Deep Vein Thrombosis/Pulmonary Embolism Present on Admission: No MIPS - Admit I confirm the patient?s Advance Care Plan is present, Code status is documented, Surrogate decision maker is in patient?s record: Yes MIPS - DC The patient has current or prior documentation of left ventricular ejection fraction (LVEF) less than 40%, or moderate or severely depressed left ventricular systolic function.: No Time Spent With Patient Critical Care time: I spent a total of 200 minutes of critical care time on this patient's care today; this time is exclusive of procedural time. Scores GCS Anastasiia coma scale eye opening: To sound Anastasiia coma scale verbal response: Sounds Friendship coma scale motor response: Localising Friendship coma scale total score: 10 Wells' Criteria for PE Clinical signs and symptoms of DVT: Yes PE is #1 Dx or equally likely: Yes Heart rate > 100: Yes Immobilization at least 3 days or surg in previous 4 weeks: No History of PE or DVT: No Hemoptysis: No Malignancy w/Treatment within 6 months or palliative: No Wells' PE Score total: 7.5 Quality VTE Deep Vein Thrombosis/Pulmonary Embolism Present on Admission: No
[2022-04-17 20:56] LABS: Hemoglobin A1C% w Est Avg Glu 6.6 % (4.0-6.0)
[2022-04-17] MEDS: VANCOMYCIN 1,500 MG/300 ML PIGGYBACK 200 MG IV (21:13)
[2022-04-17] MEDS: ACETAMINOPHEN 650 MG SUPP PR (21:24)
[2022-04-17] MEDS: dexmedeTOMIDine in 0.9 % NaCL 400 MCG/100 ML PLAST..BAG 12.75 MCG IV (21:45)
--- NOTE | 2022-04-17 22:00 | DI.RAD.S_ITS ---
PROCEDURE: XR CHEST 1V INDICATIONS: confirm ET tube placement TECHNIQUE: One view of the chest was acquired. COMPARISON: [facility], CR, XR CHEST 1V, 04/17/2022, 18:15. FINDINGS: Surgical changes and devices: There is an endotracheal tube with the tip approximately 4.4 cm from the jeanette. A nasogastric tube extends into the stomach, with the side port in the distal esophagus. A right internal jugular catheter is present with the tip in the region of the cavoatrial junction. Lungs and pleura: No definite pneumothorax. There is a suspected small left pleural effusion with left basilar opacities consistent with consolidation or atelectasis. Mediastinum: Mediastinal contours appear unchanged. Heart size is normal. Bones and chest wall: No suspicious bony lesions. Overlying soft tissues appear unremarkable. IMPRESSION: 1. No definite pneumothorax. 2. Side port of nasogastric tube demonstrated in the distal esophagus. Recommend further advancement into the stomach. 3. Small left pleural effusion with left basilar atelectasis or consolidation. Dictated by: Douglas Croft M.D. on 04/17/2022 at 23:43 Approved by: Douglas Croft M.D. on 04/17/2022 at 23:48
[2022-04-17] MEDS: LORazepam 2 MG/ML INJ 1 MG IV (23:00)
--- NOTE | 2022-04-17 23:08 | P.CONS_ITS ---
History of Present Illness Consult details Date Patient Seen: 04/17/22 Time Patient Seen: 22:00 Chief complaint: NSTEMI, UTI sepsis, ARF w/hypoxia Meds Home Medications and Allergies Home Medications Medication Instructions Recorded Confirmed Type atenolol 50 mg tablet 50 mg PO DAILY #90 tabs 05/31/21 04/15/22 Rx clopidogrel 75 mg tablet (Plavix) 75 mg PO DAILY #90 tabs 05/31/21 04/15/22 Rx lisinopril 5 mg tablet 5 mg PO DAILY #90 tabs 05/31/21 04/15/22 Rx atorvastatin 20 mg tablet (Lipitor) 20 mg PO BEDTIME #90 tabs 07/30/21 04/15/22 Rx albuterol sulfate 90 mcg/actuation 1 puff inhalation Q6H PRN 08/30/21 04/15/22 Rx aerosol inhaler (ProAir HFA) shortness of breath or wheezing #8.5 grams colchicine 0.6 mg tablet 0.6 mg PO DAILY #30 tabs 11/29/21 04/15/22 Rx metformin 1,000 mg tablet 1,000 mg PO BID #180 tabs 12/10/21 04/15/22 Rx alprazolam 0.5 mg tablet 0.5 mg PO DAILY #1 tab 12/20/21 04/15/22 Rx ropinirole 4 mg tablet 8 mg PO BEDTIME #180 tabs 02/18/22 04/15/22 Rx potassium citrate 10 mEq (1,080 10 meq PO TID #270 tabs 03/19/22 04/15/22 Rx mg) tablet,extended release oxycodone 5 mg tablet 5 mg PO Q4H PRN pain #14 tabs 04/15/22 Rx Allergies Allergy/AdvReac Type Severity Reaction Status Date / Time No Known Drug Allergies Allergy Verified 04/15/22 09:44 Exam Vital Signs (past 8 hours): - 04/17/22 15:10 04/17/22 15:10 04/17/22 16:00 Temperature Pulse Rate 135 H Respiratory Rate 33 H Blood Pressure 156/123 H 129/106 H Pulse Oximetry 94 Oxygen Delivery Method Nasal Cannula Oxygen Flow Rate 2 Fraction of Inspired Oxygen 45 04/17/22 15:14 04/17/22 15:14 04/17/22 15:15 Temperature Pulse Rate 138 H 138 H Respiratory Rate 34 H 34 H Blood Pressure 162/133 H Pulse Oximetry 88 L 90 L Oxygen Delivery Method Nasal Cannula Nasal Cannula Oxygen Flow Rate 2 2 Fraction of Inspired Oxygen 04/17/22 15:16 04/17/22 15:16 04/17/22 15:30 Temperature Pulse Rate 137 H Respiratory Rate 33 H Blood Pressure 179/76 H 179/81 H Pulse Oximetry 86 L Oxygen Delivery Method Nasal Cannula Oxygen Flow Rate 2 Fraction of Inspired Oxygen 04/17/22 15:30 04/17/22 15:41 04/17/22 15:41 Temperature Pulse Rate 147 H 150 H Respiratory Rate 60 H 60 H Blood Pressure 203/94 H Pulse Oximetry 89 L 97 Oxygen Delivery Method Non -Rebreather BiPAP Oxygen Flow Rate 15 Fraction of Inspired Oxygen 04/17/22 15:45 04/17/22 15:50 04/17/22 15:50 Temperature Pulse Rate 151 H 151 H Respiratory Rate 35 H 42 H Blood Pressure 129/106 H Pulse Oximetry 98 86 L Oxygen Delivery Method BiPAP BiPAP Oxygen Flow Rate Fraction of Inspired Oxygen 04/17/22 16:00 04/17/22 16:15 04/17/22 16:30 Temperature Pulse Rate 150 H 147 H 141 H Respiratory Rate 53 H 51 H 37 H Blood Pressure Pulse Oximetry 97 88 L 93 Oxygen Delivery Method BiPAP BiPAP BiPAP Oxygen Flow Rate Fraction of Inspired Oxygen 04/17/22 16:45 04/17/22 17:15 04/17/22 17:00 Temperature Pulse Rate 143 H 140 H Respiratory Rate 33 H 33 H Blood Pressure 100/56 L Pulse Oximetry 99 96 Oxygen Delivery Method BiPAP Oxygen Flow Rate Fraction of Inspired Oxygen 04/17/22 17:01 04/17/22 17:01 04/17/22 17:03 Temperature Pulse Rate 141 H Respiratory Rate 32 H Blood Pressure 75/48 L 88/60 L Pulse Oximetry 96 Oxygen Delivery Method Oxygen Flow Rate Fraction of Inspired Oxygen 04/17/22 17:03 04/17/22 17:06 04/17/22 17:07 Temperature Pulse Rate 140 H 140 H Respiratory Rate 32 H 32 H Blood Pressure 90/54 L Pulse Oximetry 95 96 Oxygen Delivery Method Oxygen Flow Rate Fraction of Inspired Oxygen 04/17/22 17:24 04/17/22 17:25 04/17/22 17:25 Temperature Pulse Rate 144 H 144 H Respiratory Rate 30 H 29 H Blood Pressure 133/60 Pulse Oximetry 99 99 Oxygen Delivery Method Oxygen Flow Rate Fraction of Inspired Oxygen 04/17/22 17:15 04/17/22 17:30 04/17/22 17:30 Temperature 103 F H Pulse Rate 143 H Respiratory Rate 31 H Blood Pressure 127/57 L Pulse Oximetry 93 Oxygen Delivery Method Oxygen Flow Rate Fraction of Inspired Oxygen 04/17/22 17:45 04/17/22 17:59 04/17/22 17:59 Temperature Pulse Rate 137 H 133 H Respiratory Rate 32 H 32 H Blood Pressure 70/50 L Pulse Oximetry 96 97 Oxygen Delivery Method Oxygen Flow Rate Fraction of Inspired Oxygen 04/17/22 18:00 04/17/22 18:01 04/17/22 18:01 Temperature Pulse Rate 132 H 132 H Respiratory Rate 32 H 44 H Blood Pressure 83/48 L Pulse Oximetry 98 97 Oxygen Delivery Method Oxygen Flow Rate Fraction of Inspired Oxygen 04/17/22 18:15 04/17/22 18:16 04/17/22 18:16 Temperature Pulse Rate 121 H 118 H Respiratory Rate 26 H 29 H Blood Pressure 61/45 L Pulse Oximetry 97 98 Oxygen Delivery Method Oxygen Flow Rate Fraction of Inspired Oxygen 04/17/22 18:30 04/17/22 18:45 04/17/22 18:48 Temperature Pulse Rate 111 H 83 Respiratory Rate 31 H 32 H Blood Pressure 63/41 L Pulse Oximetry 97 99 Oxygen Delivery Method Oxygen Flow Rate Fraction of Inspired Oxygen 04/17/22 18:48 04/17/22 18:50 04/17/22 19:00 Temperature Pulse Rate 83 83 Respiratory Rate 33 H 36 H Blood Pressure 63/41 L 70/50 L Pulse Oximetry 89 L 100 Oxygen Delivery Method Oxygen Flow Rate Fraction of Inspired Oxygen 04/17/22 19:00 04/17/22 19:15 04/17/22 19:16 Temperature Pulse Rate 87 90 89 Respiratory Rate 37 H 39 H 37 H Blood Pressure Pulse Oximetry 99 86 L 87 L Oxygen Delivery Method Oxygen Flow Rate Fraction of Inspired Oxygen 04/17/22 19:16 04/17/22 19:30 04/17/22 19:36 Temperature Pulse Rate 92 H 93 H Respiratory Rate 32 H 32 H Blood Pressure 75/55 L Pulse Oximetry 94 96 Oxygen Delivery Method Oxygen Flow Rate Fraction of Inspired Oxygen 04/17/22 19:36 04/17/22 19:45 04/17/22 19:45 Temperature 98.2 F Pulse Rate 96 H Respiratory Rate 43 H Blood Pressure 79/51 L 84/55 L Pulse Oximetry 95 Oxygen Delivery Method Oxygen Flow Rate Fraction of Inspired Oxygen 04/17/22 20:00 04/17/22 20:00 04/17/22 20:15 Temperature Pulse Rate 97 H Respiratory Rate 22 Blood Pressure 81/55 L 80/54 L Pulse Oximetry 96 Oxygen Delivery Method Oxygen Flow Rate Fraction of Inspired Oxygen 04/17/22 20:15 04/17/22 20:30 04/17/22 20:30 Temperature Pulse Rate 100 H 98 H Respiratory Rate 40 H 40 H Blood Pressure 81/53 L Pulse Oximetry 96 96 Oxygen Delivery Method Oxygen Flow Rate Fraction of Inspired Oxygen 04/17/22 20:45 04/17/22 20:45 04/17/22 21:00 Temperature Pulse Rate 97 H Respiratory Rate 42 H Blood Pressure 85/54 L 106/55 L Pulse Oximetry 96 Oxygen Delivery Method Oxygen Flow Rate Fraction of Inspired Oxygen 04/17/22 21:00 04/17/22 21:24 04/17/22 21:15 Temperature 102.9 F H Pulse Rate 100 H 99 H Respiratory Rate 38 H 31 H Blood Pressure Pulse Oximetry 97 98 Oxygen Delivery Method Oxygen Flow Rate Fraction of Inspired Oxygen 04/17/22 21:24 04/17/22 21:24 04/17/22 21:30 Temperature Pulse Rate 99 H 100 H Respiratory Rate 26 H 35 H Blood Pressure 123/72 Pulse Oximetry 97 96 Oxygen Delivery Method Oxygen Flow Rate Fraction of Inspired Oxygen 04/17/22 21:45 04/17/22 21:56 04/17/22 21:56 Temperature Pulse Rate 100 H 99 H Respiratory Rate 26 H 33 H Blood Pressure 127/76 Pulse Oximetry 95 96 Oxygen Delivery Method Oxygen Flow Rate Fraction of Inspired Oxygen 04/17/22 22:00 04/17/22 22:15 04/17/22 22:26 Temperature Pulse Rate 98 H 103 H Respiratory Rate 32 H 34 H Blood Pressure 136/69 Pulse Oximetry 96 99 Oxygen Delivery Method Oxygen Flow Rate Fraction of Inspired Oxygen 04/17/22 22:26 04/17/22 22:30 Temperature Pulse Rate 95 H 95 H Respiratory Rate 20 15 Blood Pressure Pulse Oximetry 96 94 Oxygen Delivery Method Oxygen Flow Rate Fraction of Inspired Oxygen Fraction of Inspired Oxygen 45 Oxygen Delivery Method BiPAP Oxygen Flow Rate 15 Objective Labs Result Diagrams: 04/18/22 02:08 04/18/22 00:00 Labs: Laboratory Results - last 24 hr 04/17/22 04/17/22 04/17/22 10:45 10:45 10:45 WBC 6.2 RBC 3.40 L Hgb 10.3 L Hct 30.5 L MCV 89.8 MCH 30.4 MCHC 33.9 RDW 14.1 Plt Count 108 L Neut % (Auto) 90.6 H Lymph % (Auto) 2.3 L Petroleum % (Auto) 6.5 Eos % (Auto) 0.5 L Baso % (Auto) 0.1 Neut # (Auto) 5700 Lymph # (Auto) 100 L Petroleum # (Auto) 400 Eos # (Auto) 0 Baso # (Auto) 0 APTT Sodium 134 L Potassium 4.8 Chloride 104 Carbon Dioxide 18 L BUN 21 H Creatinine 0.92 Estimated GFR > 60 BUN/Creatinine Ratio 22.8 H Glucose 274 H Hemoglobin A1c Lactate 3.5 H Calcium 8.0 L Magnesium 1.3 L Total Bilirubin 0.5 AST 24 ALT 24 Alkaline Phosphatase 50 Troponin I 0.106 H Total Protein 5.9 L Albumin 3.4 L Globulin 2.5 Albumin/Globulin Ratio 1.4 Procalcitonin 0.73 H Urine Color Urine Appearance Urine pH Ur Specific [place] Urine Protein Urine Glucose (UA) Urine Ketones Urine Occult Blood Urine Nitrate Urine Bilirubin Urine Urobilinogen Ur Leukocyte Esterase Urine RBC Urine WBC Ur Squamous Epith Cells Urine Bacteria Ur Culture Indicated? SARS-CoV-2 (PCR) 04/17/22 04/17/22 04/17/22 10:45 10:45 12:10 WBC RBC Hgb Hct MCV MCH MCHC RDW Plt Count Neut % (Auto) Lymph % (Auto) Petroleum % (Auto) Eos % (Auto) Baso % (Auto) Neut # (Auto) Lymph # (Auto) Petroleum # (Auto) Eos # (Auto) Baso # (Auto) APTT Sodium Potassium Chloride Carbon Dioxide BUN Creatinine Estimated GFR BUN/Creatinine Ratio Glucose Hemoglobin A1c 6.6 H Lactate Calcium Magnesium Total Bilirubin AST ALT Alkaline Phosphatase Troponin I Total Protein Albumin Globulin Albumin/Globulin Ratio Procalcitonin Urine Color Brown Urine Appearance Cloudy Urine pH 5.0 Ur Specific [place] 1.015 Urine Protein 2+ H Urine Glucose (UA) 1+ H Urine Ketones Negative Urine Occult Blood 3+ H Urine Nitrate Positive H Urine Bilirubin Negative Urine Urobilinogen 0.2 Ur Leukocyte Esterase 1+ H Urine RBC >100/hpf H Urine WBC >100/hpf H Ur Squamous Epith Cells 1-5 /hpf Urine Bacteria Many (>30) H Ur Culture Indicated? Specimen cultured SARS-CoV-2 (PCR) Negative 04/17/22 04/17/22 04/17/22 12:47 13:35 14:15 WBC RBC Hgb Hct MCV MCH MCHC RDW Plt Count Neut % (Auto) Lymph % (Auto) Petroleum % (Auto) Eos % (Auto) Baso % (Auto) Neut # (Auto) Lymph # (Auto) Petroleum # (Auto) Eos # (Auto) Baso # (Auto) APTT 77 H* Sodium Potassium Chloride Carbon Dioxide BUN Creatinine Estimated GFR BUN/Creatinine Ratio Glucose Hemoglobin A1c Lactate 2.1 Calcium Magnesium Total Bilirubin AST ALT Alkaline Phosphatase Troponin I 0.470 H* Total Protein Albumin Globulin Albumin/Globulin Ratio Procalcitonin Urine Color Urine Appearance Urine pH Ur Specific [place] Urine Protein Urine Glucose (UA) Urine Ketones Urine Occult Blood Urine Nitrate Urine Bilirubin Urine Urobilinogen Ur Leukocyte Esterase Urine RBC Urine WBC Ur Squamous Epith Cells Urine Bacteria Ur Culture Indicated? SARS-CoV-2 (PCR) 04/17/22 18:20 WBC RBC Hgb Hct MCV MCH MCHC RDW Plt Count Neut % (Auto) Lymph % (Auto) Petroleum % (Auto) Eos % (Auto) Baso % (Auto) Neut # (Auto) Lymph # (Auto) Petroleum # (Auto) Eos # (Auto) Baso # (Auto) APTT Sodium Potassium Chloride Carbon Dioxide BUN Creatinine Estimated GFR BUN/Creatinine Ratio Glucose Hemoglobin A1c Lactate Calcium Magnesium Total Bilirubin AST ALT Alkaline Phosphatase Troponin I 1.020 H* Total Protein Albumin Globulin Albumin/Globulin Ratio Procalcitonin Urine Color Urine Appearance Urine pH Ur Specific [place] Urine Protein Urine Glucose (UA) Urine Ketones Urine Occult Blood Urine Nitrate Urine Bilirubin Urine Urobilinogen Ur Leukocyte Esterase Urine RBC Urine WBC Ur Squamous Epith Cells Urine Bacteria Ur Culture Indicated? SARS-CoV-2 (PCR) [facility] Medical History Anticoagulated on heparin Arthritis Bilateral nephrolithiasis Alwnlqc-Sfoua-Gwzfy disease Colon cancer Diabetes mellitus treated with oral medication Hernia Hypertension, essential Mixed hyperlipidemia Peripheral vascular disease of extremity Sleep apnea in adult Surgical History Hx of cystoscopy (10/16/21) Hx of cystoscopy (12/03/21) Hx of cystoscopy (03/25/22) S/P ureteral stent placement Status post colectomy (~1995) Status post vascular bypass Family History Father Ulcer History of blood clots Mother No known problems Social History marital status: household members: spouse lives independently: Yes occupational status: other Tobacco & Substance Use Smoking Status: Former smoker alcohol intake: current substance use type: does not use Diet and Exercise Type(s) of exercise: bicycling frequency: 1-2 times per week Assessment & Plan Assessment and plan (1) Acute respiratory failure: Status: Acute Plan Consulted for intubation on this delightful man who is well known to me after sustaining a fall off of his recumbent bike and developing ARF and sepsis, hypotension. Intubated in the ICU after failing a trail of Bipap: 6 mg Etomidate, Glidescope Grade I, #7.5 ETT, to 23 cm at lips. Cuff up, + Bilat. breath sounds with diffuse wheezing. CXR confirming placement. As pt is on pressors, an indwelling art line was also requested. No radial or brachial pulses. Left Femoral art line was placed under sterile Seldinger technique, 20g. No complications. Assessment & Plan narrative: See above. Intubated with 7.5 ETT and Art line 20g started left femoral. Time Spent With Patient Critical Care time: I spent a total of 75] minutes of critical care time on this patient's care today; this time is exclusive of procedural time.
[2022-04-18] VITALS (22 sets, daily range): BP systolic 118–143; BP diastolic 63–81; PULSE 76–82; RESP 15–22; TEMP 37.5; O2SAT 93–100
[2022-04-18] MEDS: HYDROCORTISONE 100 MG/2 ML VIAL 50 MG IV (00:02)
[2022-04-18] MEDS: CHLORHEXIDINE GLUCONATE 15 ML CUP PO (00:03)
[2022-04-18] MEDS: INSULIN GLARGINE 100 UNIT/ML 3ML PEN SUBCUT (00:09)
[2022-04-18] MEDS: INSULIN LISPRO 100 UNIT/ML 3ML VIAL SUBCUT (00:10)
[2022-04-18 00:39] LABS: PTT Partial Thromboplastin Tim 50 SECONDS (26-36)
[2022-04-18 00:40] LABS: Troponin I 0.725 ng/mL (0.01-0.034)
[2022-04-18] MEDS: NOREPINEPHRINE BITARTRATE/D5W 4 MG/250 ML PLAST..BAG 26.25 MG IV (00:45)
[2022-04-18] MEDS: MAGNESIUM SULFATE 2 GM/50 ML PIGGYBACK IV (01:41)
[2022-04-18 01:45] LABS: Alanine Aminotransferase 32 IU/L (<50); Albumin 3.2 g/dL (3.5-5.0); Albumin Globulin Ratio 1.3 (1.0-2.8); Alkaline Phosphatase 54 U/L (38-126); Aspartate Aminotransferase 73 IU/L (17-59); BUN Creatinine Ratio 15.7 (6-22); Bilirubin Total 0.8 mg/dL (0.2-1.3); Blood Urea Nitrogen 21 mg/dL (9-20); Calcium 7.6 mg/dL (8.4-10.2); Carbon Dioxide 16 mmol/L (22-32); Chloride 107 mmol/L (98-107); Estimated Glomerular Filt Rate 55 mL/min (>60); Globulin 2.4 g/dL (1.7-4.1); Glucose 236 mg/dL (80-110); HEMOLYSIS 15 (0-50); Potassium 4.7 mmol/L (3.4-5.1); Sodium 135 mmol/L (137-145); Total Protein 5.6 g/dL (6.3-8.2)
[2022-04-18] MEDS: propofoL 1,000 MG/100 ML VIAL 2.55 MG IV (02:20)
[2022-04-18] MEDS: dexmedeTOMIDine in 0.9 % NaCL 400 MCG/100 ML PLAST..BAG 21.25 MCG IV (02:51)
--- NOTE | 2022-04-18 03:26 | PC.NURSE ---
Addendum entered by Nay Valencia R.N. 04/18/22 05:42: As preceptor, I agree with Stacey RNs assessments, interventions, and documentation. Addendum entered by Stacey Barragan R.N. 04/18/22 04:51: Gave report to transport team. took all belongings. Vitals stable upon departure. Addendum entered by Stacey Barragan R.N. 04/18/22 04:04: Transfer report given to nurse taking care of the patient at [facility]. Original Note: When arrive on shift, pt hypotensive on 12 of Levophed and respiratory rate in the 40s on Bipap. Hr was high 90s to low 100s. Pt was febrile with temp being 102.9F. Tylenol suppository was given. Current temp 99.4F. Commercial Litigation Attorney was called. Ordered Vasopressin, EKG and ABG. EKG and ABG unremarkable. Around 2200, pt work of breathing increased and due to being on Precedex for sedation, intubation was ordered. Pt intubated around 2300 and propofol was added. Pt also currently on a heparin drip for possible PE and IL due to troponin being elevated. Pt has OG tube in place. Pt vent settings 60% 450 16/5. Receiving zosyn and vancomycin, as well as magnesium. Scrape on left lower leg from fall was redressed. Pt has generalized bruising and abrasions from the fall. Lungs are coarse. Pt was pale and cold at beginning of shift but some color is returning. was notified of status change and at bedside. Currently waiting for transportation arrangements to [facility].
[2022-04-18 03:45] LABS: HCO3 ABG 17 mmol/L (22-26); Oxygen Saturation ABG 99 % (95-100); PCO2 ABG 26.6 mmHg (35-45); PO2 ABG 157 mmHg (80-100); TCO2 ABG 18 mmol/L (21-31); pH ABG 7.42 (7.35-7.45)
[2022-04-18 03:46] LABS: Fractionated Inspired Oxygen 40
--- NOTE | 2022-04-18 03:48 | P.DS_ITS ---
History of Present Illness History of Present Illness Date Patient Seen: 04/18/22 Time Patient Seen: 03:00 Chief complaint: NSTEMI, UTI sepsis, ARF w/hypoxia Narrative: HPI by CARI Akbar: Patient is unable to provide me with a history as he is on BiPap and on a Precedex drip. History is provided by reviewing notes, discussion with ICU nursing staff. Shantanu Underwood is a 76 y.o. male with a history of Fckohej-Phrqt-Vhmus, diabetes, peripheral vascular disease on clopidogrel, asthma, kidney stones who presents after falling off his recumbent bike in his garage this morning.? He had lithotripsy on April 15 but notes otherwise? he was in his usual state of health this morning and was mounting his recumbent bike, lost his balance, fell off, hitting his head on the floor and ending up in an odd position with his head on the floor his leg still on the bike and unable to move.? When medics arrived he was alert orient to name only, had a minor abrasion the right side of his eye skin tears on the left anterior ferrell. He was initially moderately hypotensive with a systolic pressure at 86 them after a 500 cc boluses come up to 95. ??At the time of arrival to the ED, he denied any recent fever, cough, chills, abdominal pain, vomiting, diarrhea and told them he has chronic lower extremity weakness from his Gpnpjlg-Uixdo-Hqovy disease whch was essentially unchanged. While in the ED, he became progressively hypotensive and they repeated a lactate as well as a troponin. He was determined to have a UTI and started on IV antibiotics. They started him on a trial of Levophed and given the length of time required, they placed a central line. Apparently after the placement of a central line he became more hypotensive and hypoxic. He was noted to be increasingly tachycardic and agitated. At that point they administered Ativan and then eventually placed him on a Precedex drip. They also placed a Spear. His initial troponin was elevated at 0.106 considered to be indeterminate and then a repeat troponin was done 2 hours later and it increased to 0.470, the patient was subsequently placed on heparin drip. EKG only indicated sinus tachycardia with left axis deviation. At that point the ED provider attempted to have the patient transferred to a tertiary facility and apparently no beds were available at [facility]. They discussed his case with Cardiology and the patient was administered 20 mg of IV Lasix. Cardiology felt that the patient could be medically managed on a heparin drip. Patient was admitted to the hospitalist service sometime in the at late afternoon and early evening. Chest x-ray was done to confirm central line placement which indicated a mild elevation of the left steve diagram with minimal streaky left basilar opacities. He was negative for pneumothorax and noted low lung volumes, likely atelectasis. Initially the patient was afebrile on presentation to the emergency department but then at around 5:00 p.m. he started to develop fevers and had a T-max of 103? and is currently 102.9. Patient's blood pressures have been very labile, initially presented with a blood pressure of 106/64, his lowest blood pressure was 63/41 and is currently 118/63, his heart rate is currently 80, respiratory rate is set at 16 with an oxygen saturation of 97% on TD of 450, FiO2 of 60%, PEEP 6. He weighs 85 kg with a BMI of 25.4. His hemoglobin and hematocrit are 10.3 and 30.5% respectively, platelet count 108, sodium 134 bicarb 18 BUN 21 glucose 274 A1c is 6.6 lactate was initially 3.1 and is now 2.1, calcium 8.0 Mag 1.3 which will be repleted albumin 3.4 procalcitonin was 0.73, UA is positive for nitrates and bacteria, and COVID-19 PCR is negative. Discharge Providers Provider Date of admission: 04/17/22 16:55 Discharge Date: 04/18/22 Primary care physician: Dmitry Ferguson MD Consults: 04/17/22 20:20 Consult to Tele-it application development manager Routine Comment: Consulting Provider: [employer] Reason for consultation: Pipeline Integrity Engineer services Has provider been notified: Yes 04/17/22 21:57 Consult to Dietitian, Adult Routine Comment: Reason For Exam: Patient on Ventilator and NPO Discharge provider: CARI Akbar Summary Hospital Course Discharge Diagnosis: Acute cardiogenic and septic shock NSTEMI, on heparin drip Hypotension requiring pressors Acute metabolic encephalopathy Acute respiratory failure with hypoxia Urinary tract infection, s/p lithotripsy and stent Hematuria Fall Hospital Course: Shantanu Underwood is admitted to the intensive care unit with septic and cardiogenic shock likely due to a urinary tract infection status post lithotripsy POD #2., NSTEMI, acute hypoxemic respiratory failure, anemia of chronic disease and diabetes type 2. Acute encephalopathy secondary to sepsis and cardiogenic shock, present on admission * Decision was made to intubate the patient to protect his airway, see anesthesia note * He was initially initiated on Precedex and after intubation that was discontinued and orders were for fentanyl/propofol drip * Pipeline Integrity Engineer requested avoiding benzodiazepine * Encephalopathy likely due to UTI and possibly medications administered prior to receiving his central line Acute hypoxemia with respiratory failure, present on admission * Suspected PE, CTA of the chest was ordered, decision made to not have CTA done until the patient was stabilized.? I have requested that nursing and RT try to get the patient down stairs for the CTA NSTEMI, acute, present on admission * Due to elevated troponins which are continuing to increase patient was started on heparin drip * Patient's case was discussed with Cardiology and with the 3rd increase and doubling of his troponin, requests have been made for patient transfer to tertiary facility with pulmonology and Cardiology however all beds are filled * His troponin appears to have peaked at 1.020 and subsequent troponin is now trending down * DX includes demand ischemia versus is ACS * He will receive oral medications via NG tube, started on atorvastatin 80 mg daily and will initiate aspirin and Plavix once he is off the heparin drip Sepsis secondary to UTI, acute, present on admission * He was started on piptaz and vancomycin * Lactate is trending down Hematuria, unknown if acute, present on admission * His urine output appears to be decreasing * Hold heparin drip if continued bleeding and consult with Urology Anemia likely anemia of chronic disease, present on admission * His H&H is close to his baseline however if it keeps dropping will need to hold the heparin drip * Daily CBC * Hemoglobin goal greater than 7 Diabetes type 2, well controlled with an A1c of 6.6 * His initial glucose was 274 * Start Lantus 5 units b.i.d. with medium dose correctional scale for strict glucose control Status at Discharge Cognitive/behavioral status at discharge: confused Functional status at discharge: bed bound Overall status at discharge: patient is not back to baseline Time Spent with Patient Time spent: Greater than 30 minutes Exam Vital Signs (past 8 hours): - 04/17/22 20:00 04/17/22 20:00 04/17/22 20:15 Temperature Pulse Rate 97 H Respiratory Rate 22 Blood Pressure 81/55 L 80/54 L Pulse Oximetry 96 Oxygen Delivery Method 04/17/22 20:15 04/17/22 20:30 04/17/22 20:30 Temperature Pulse Rate 100 H 98 H Respiratory Rate 40 H 40 H Blood Pressure 81/53 L Pulse Oximetry 96 96 Oxygen Delivery Method 04/17/22 20:45 04/17/22 20:45 04/17/22 21:00 Temperature Pulse Rate 97 H Respiratory Rate 42 H Blood Pressure 85/54 L 106/55 L Pulse Oximetry 96 Oxygen Delivery Method 04/17/22 21:00 04/17/22 21:24 04/17/22 21:15 Temperature 102.9 F H Pulse Rate 100 H 99 H Respiratory Rate 38 H 31 H Blood Pressure Pulse Oximetry 97 98 Oxygen Delivery Method 04/17/22 21:24 04/17/22 21:24 04/17/22 21:30 Temperature Pulse Rate 99 H 100 H Respiratory Rate 26 H 35 H Blood Pressure 123/72 Pulse Oximetry 97 96 Oxygen Delivery Method 04/17/22 21:45 04/17/22 21:56 04/17/22 21:56 Temperature Pulse Rate 100 H 99 H Respiratory Rate 26 H 33 H Blood Pressure 127/76 Pulse Oximetry 95 96 Oxygen Delivery Method 04/17/22 22:00 04/17/22 22:15 04/17/22 22:26 Temperature Pulse Rate 98 H 103 H Respiratory Rate 32 H 34 H Blood Pressure 136/69 Pulse Oximetry 96 99 Oxygen Delivery Method 04/17/22 22:26 04/17/22 22:30 04/17/22 22:45 Temperature Pulse Rate 95 H 95 H 85 Respiratory Rate 20 15 21 Blood Pressure Pulse Oximetry 96 94 96 Oxygen Delivery Method 04/17/22 23:00 04/17/22 23:08 04/17/22 23:08 Temperature Pulse Rate 85 85 Respiratory Rate 21 20 Blood Pressure 123/59 L Pulse Oximetry 98 100 Oxygen Delivery Method 04/17/22 20:00 04/17/22 23:15 04/17/22 23:30 Temperature Pulse Rate 84 83 Respiratory Rate 20 31 H Blood Pressure Pulse Oximetry 99 97 Oxygen Delivery Method BiPAP 04/17/22 23:34 04/17/22 23:34 04/17/22 23:45 Temperature Pulse Rate 83 Respiratory Rate 16 Blood Pressure 127/69 124/64 Pulse Oximetry 97 Oxygen Delivery Method 04/17/22 23:45 04/18/22 00:00 04/18/22 00:00 Temperature 99.5 F Pulse Rate 83 80 Respiratory Rate 17 15 Blood Pressure 118/63 Pulse Oximetry 97 97 Oxygen Delivery Method 04/18/22 00:00 04/18/22 00:15 04/18/22 00:15 Temperature Pulse Rate 81 Respiratory Rate 17 Blood Pressure 126/65 Pulse Oximetry 97 Oxygen Delivery Method Mechanical Ventilation 04/18/22 00:30 04/18/22 00:35 04/18/22 00:35 Temperature Pulse Rate 82 81 Respiratory Rate 19 17 Blood Pressure 143/77 H Pulse Oximetry 99 98 Oxygen Delivery Method 04/18/22 00:45 04/18/22 01:00 04/18/22 01:15 Temperature Pulse Rate 80 80 80 Respiratory Rate 18 19 17 Blood Pressure Pulse Oximetry 97 97 99 Oxygen Delivery Method 04/18/22 01:22 04/18/22 01:22 04/18/22 01:30 Temperature Pulse Rate 80 Respiratory Rate 17 Blood Pressure 135/81 125/75 Pulse Oximetry 99 Oxygen Delivery Method 04/18/22 01:30 04/18/22 01:45 04/18/22 01:45 Temperature Pulse Rate 80 80 Respiratory Rate 18 19 Blood Pressure 130/76 Pulse Oximetry 97 96 Oxygen Delivery Method 04/18/22 02:00 04/18/22 02:00 04/18/22 02:15 Temperature Pulse Rate 79 Respiratory Rate 19 Blood Pressure 136/77 123/71 Pulse Oximetry 99 Oxygen Delivery Method 04/18/22 02:15 04/18/22 02:30 04/18/22 02:30 Temperature Pulse Rate 80 76 Respiratory Rate 22 18 Blood Pressure 130/76 Pulse Oximetry 98 96 Oxygen Delivery Method 04/18/22 02:45 04/18/22 02:45 04/18/22 03:00 Temperature Pulse Rate 77 Respiratory Rate 18 Blood Pressure 131/78 133/77 Pulse Oximetry 94 Oxygen Delivery Method 04/18/22 03:00 04/18/22 03:15 04/18/22 03:15 Temperature Pulse Rate 77 77 Respiratory Rate 18 17 Blood Pressure 134/78 Pulse Oximetry 93 96 Oxygen Delivery Method 04/18/22 03:30 04/18/22 03:30 Temperature Pulse Rate 77 Respiratory Rate 18 Blood Pressure 133/77 Pulse Oximetry 95 Oxygen Delivery Method Fraction of Inspired Oxygen 45 Oxygen Delivery Method Mechanical Ventilation Oxygen Flow Rate 15 Narrative Exam Narrative: See H and P Objective Labs Result Diagrams: 04/17/22 10:45 04/18/22 00:00 Labs: Laboratory Results - last 24 hr 04/17/22 04/17/22 04/17/22 10:45 10:45 10:45 WBC 6.2 RBC 3.40 L Hgb 10.3 L Hct 30.5 L MCV 89.8 MCH 30.4 MCHC 33.9 RDW 14.1 Plt Count 108 L Neut % (Auto) 90.6 H Lymph % (Auto) 2.3 L Frio % (Auto) 6.5 Eos % (Auto) 0.5 L Baso % (Auto) 0.1 Neut # (Auto) 5700 Lymph # (Auto) 100 L Frio # (Auto) 400 Eos # (Auto) 0 Baso # (Auto) 0 APTT ABG pH ABG pCO2 ABG pO2 ABG HCO3 ABG Total CO2 ABG O2 Saturation ABG Base Excess FiO2 Sodium 134 L Potassium 4.8 Chloride 104 Carbon Dioxide 18 L BUN 21 H Creatinine 0.92 Estimated GFR > 60 BUN/Creatinine Ratio 22.8 H Glucose 274 H Hemoglobin A1c Lactate 3.5 H Calcium 8.0 L Magnesium 1.3 L Total Bilirubin 0.5 AST 24 ALT 24 Alkaline Phosphatase 50 Troponin I 0.106 H Total Protein 5.9 L Albumin 3.4 L Globulin 2.5 Albumin/Globulin Ratio 1.4 Procalcitonin 0.73 H Urine Color Urine Appearance Urine pH Ur Specific [place] Urine Protein Urine Glucose (UA) Urine Ketones Urine Occult Blood Urine Nitrate Urine Bilirubin Urine Urobilinogen Ur Leukocyte Esterase Urine RBC Urine WBC Ur Squamous Epith Cells Urine Bacteria Ur Culture Indicated? SARS-CoV-2 (PCR) 04/17/22 04/17/22 04/17/22 10:45 10:45 12:10 WBC RBC Hgb Hct MCV MCH MCHC RDW Plt Count Neut % (Auto) Lymph % (Auto) Frio % (Auto) Eos % (Auto) Baso % (Auto) Neut # (Auto) Lymph # (Auto) Frio # (Auto) Eos # (Auto) Baso # (Auto) APTT ABG pH ABG pCO2 ABG pO2 ABG HCO3 ABG Total CO2 ABG O2 Saturation ABG Base Excess FiO2 Sodium Potassium Chloride Carbon Dioxide BUN Creatinine Estimated GFR BUN/Creatinine Ratio Glucose Hemoglobin A1c 6.6 H Lactate Calcium Magnesium Total Bilirubin AST ALT Alkaline Phosphatase Troponin I Total Protein Albumin Globulin Albumin/Globulin Ratio Procalcitonin Urine Color Brown Urine Appearance Cloudy Urine pH 5.0 Ur Specific [place] 1.015 Urine Protein 2+ H Urine Glucose (UA) 1+ H Urine Ketones Negative Urine Occult Blood 3+ H Urine Nitrate Positive H Urine Bilirubin Negative Urine Urobilinogen 0.2 Ur Leukocyte Esterase 1+ H Urine RBC >100/hpf H Urine WBC >100/hpf H Ur Squamous Epith Cells 1-5 /hpf Urine Bacteria Many (>30) H Ur Culture Indicated? Specimen cultured SARS-CoV-2 (PCR) Negative 04/17/22 04/17/22 04/17/22 12:47 13:35 14:15 WBC RBC Hgb Hct MCV MCH MCHC RDW Plt Count Neut % (Auto) Lymph % (Auto) Frio % (Auto) Eos % (Auto) Baso % (Auto) Neut # (Auto) Lymph # (Auto) Frio # (Auto) Eos # (Auto) Baso # (Auto) APTT 77 H* ABG pH ABG pCO2 ABG pO2 ABG HCO3 ABG Total CO2 ABG O2 Saturation ABG Base Excess FiO2 Sodium Potassium Chloride Carbon Dioxide BUN Creatinine Estimated GFR BUN/Creatinine Ratio Glucose Hemoglobin A1c Lactate 2.1 Calcium Magnesium Total Bilirubin AST ALT Alkaline Phosphatase Troponin I 0.470 H* Total Protein Albumin Globulin Albumin/Globulin Ratio Procalcitonin Urine Color Urine Appearance Urine pH Ur Specific [place] Urine Protein Urine Glucose (UA) Urine Ketones Urine Occult Blood Urine Nitrate Urine Bilirubin Urine Urobilinogen Ur Leukocyte Esterase Urine RBC Urine WBC Ur Squamous Epith Cells Urine Bacteria Ur Culture Indicated? SARS-CoV-2 (PCR) 04/17/22 04/17/22 04/18/22 18:20 21:18 00:00 WBC RBC Hgb Hct MCV MCH MCHC RDW Plt Count Neut % (Auto) Lymph % (Auto) Frio % (Auto) Eos % (Auto) Baso % (Auto) Neut # (Auto) Lymph # (Auto) Frio # (Auto) Eos # (Auto) Baso # (Auto) APTT ABG pH 7.42 ABG pCO2 26.6 L ABG pO2 157 H ABG HCO3 17 L ABG Total CO2 18 L ABG O2 Saturation 99 ABG Base Excess -7.0 L FiO2 40 Sodium 135 L Potassium 4.7 Chloride 107 Carbon Dioxide 16 L BUN 21 H Creatinine 1.34 H Estimated GFR 55 L BUN/Creatinine Ratio 15.7 Glucose 236 H Hemoglobin A1c Lactate Calcium 7.6 L Magnesium Total Bilirubin 0.8 AST 73 H ALT 32 Alkaline Phosphatase 54 Troponin I 1.020 H* Total Protein 5.6 L Albumin 3.2 L Globulin 2.4 Albumin/Globulin Ratio 1.3 Procalcitonin Urine Color Urine Appearance Urine pH Ur Specific [place] Urine Protein Urine Glucose (UA) Urine Ketones Urine Occult Blood Urine Nitrate Urine Bilirubin Urine Urobilinogen Ur Leukocyte Esterase Urine RBC Urine WBC Ur Squamous Epith Cells Urine Bacteria Ur Culture Indicated? SARS-CoV-2 (PCR) 04/18/22 04/18/22 00:00 00:01 WBC RBC Hgb Hct MCV MCH MCHC RDW Plt Count Neut % (Auto) Lymph % (Auto) Frio % (Auto) Eos % (Auto) Baso % (Auto) Neut # (Auto) Lymph # (Auto) Frio # (Auto) Eos # (Auto) Baso # (Auto) APTT 50 H D ABG pH ABG pCO2 ABG pO2 ABG HCO3 ABG Total CO2 ABG O2 Saturation ABG Base Excess FiO2 Sodium Potassium Chloride Carbon Dioxide BUN Creatinine Estimated GFR BUN/Creatinine Ratio Glucose Hemoglobin A1c Lactate Calcium Magnesium Total Bilirubin AST ALT Alkaline Phosphatase Troponin I 0.725 H* Total Protein Albumin Globulin Albumin/Globulin Ratio Procalcitonin Urine Color Urine Appearance Urine pH Ur Specific [place] Urine Protein Urine Glucose (UA) Urine Ketones Urine Occult Blood Urine Nitrate Urine Bilirubin Urine Urobilinogen Ur Leukocyte Esterase Urine RBC Urine WBC Ur Squamous Epith Cells Urine Bacteria Ur Culture Indicated? SARS-CoV-2 (PCR) [facility] Medical History Anticoagulated on heparin Arthritis Bilateral nephrolithiasis Exofdec-Ebfek-Gjzex disease Colon cancer Diabetes mellitus treated with oral medication Hernia Hypertension, essential Mixed hyperlipidemia Peripheral vascular disease of extremity Sleep apnea in adult Surgical History Hx of cystoscopy (10/16/21) Hx of cystoscopy (12/03/21) Hx of cystoscopy (03/25/22) S/P ureteral stent placement Status post colectomy (~1995) Status post vascular bypass Family History Father Ulcer History of blood clots Mother No known problems Social History marital status: household members: spouse lives independently: Yes occupational status: other Smoking Status: Former smoker alcohol intake: current substance use type: does not use Type(s) of exercise: bicycling frequency: 1-2 times per week Discharge Assessment & Plan Assessment and Plan Assessment: See diagnosis listed above above. Plan of Treatment: Acute respiratory failure with hypoxia: * Patient was awaiting CTA PE protocol, however lack of staffing to safely transport patient to and from the scanner. * Patient is intubated * He is sedated on propafal and precedex at 1 shashank/hour. Cardiogenic shock and hypotension * He is requiring 2 pressors (vasopressin at 0.03 mcg/hour, levophed at 5 mics/hour) NSTEMI * Anticoagulated on a heparin drip at 11 units/kg/hour * Troponins trending down * Recommend consult w/cardiology to assess need for cath Acute metabolic encephalopathy * Likely secondary to sepsis * Intubated to protect his airway * Avoid benzodiazapines Anemia of chronic disease * Goal of Hgb greater than 7 Diabetes type 2, well controlled * Lantus 5 units bid * Medium dose insulin correctional scale q 6 hours Discharge Plan Discharge Plan Patient Disposition: [facility] Other facility: [facility] Under care of provider: Dr. Beau Patel Discharge orders & Medications Medication counseling provided by Pharmacist: No Discharge Health Status Multidrug resistant organism: No MDRO Diet/Activity/Treatments Diet: Nothing by Mouth Discharge Data Primary Care Provider: Dmitry Ferguson VTE Deep Vein Thrombosis/Pulmonary Embolism Present on Admission: No MIPS - Admit I confirm the patient?s Advance Care Plan is present, Code status is documented, Surrogate decision maker is in patient?s record [If Yes, STOP here]: Yes MIPS - DC The patient has current or prior documentation of left ventricular ejection fraction (LVEF) less than 40%, or moderate or severely depressed left ventricular systolic function.: No
[2022-04-18 04:40] LABS: Add Manual Diff / Slide Review NO; Basophils Absolute Auto 0 /uL (0-100); Eosinophils Absolute Auto 0 /uL (0-450); Hematocrit 32.6 % (41-53); Hemoglobin 10.7 g/dL (13.5-17.5); Lymphocytes Absolute Auto 600 /uL (1100-4500); Lymphocytes Percent Auto 3.6 % (25-40); Mean Corpuscular HGB Conc 32.8 % (30-36); Mean Corpuscular Hemoglobin 29.8 PG (26-34); Mean Corpuscular Volume 90.8 fL (80-100); Monocytes Absolute Auto 1400 /uL (0-900); Monocytes Percent Auto 7.7 % (3-14); Neutrophils Absolute Auto 15900 /uL (1500-7000); Neutrophils Percent Auto 88.7 % (50-75); Platelet Count 134 X10^3/uL (150-400); Red Blood Cell Count 3.59 X10^6/uL (4.5-5.9); Red Cell Distribution Width 14.5 % (11.6-14.8)
[2022-04-18 04:43] LABS: Acinetobacter baumannii Not Detected (Not Detect); Candida albicans Not Detected (Not Detect); Candida glabrata Not Detected (Not Detect); Candida krusei Not Detected (Not Detect); Candida parapsilosis Not Detected (Not Detect); Candida tropicalis Not Detected (Not Detect); E. coli Not Detected (Not Detect); Enterobacter cloacae complex Detected (Not Detect); Enterobacteriaceae species Detected (Not Detect); Enterococcus species Not Detected (Not Detect); Haemophilus influenzae Not Detected (Not Detect); KPC (carbapenem-resist gene) Not Detected (Not Detect); Listeria monocytogenes Not Detected (Not Detect); Neisseria meningitidis Not Detected (Not Detect); Proteus species Not Detected (Not Detect); Pseudomonas aeruginosa Not Detected (Not Detect); Serratia marcescens Not Detected (Not Detect); Staphylococcus species Not Detected (Not Detect); Streptococcus agalactiae (Gr B Not Detected (Not Detect); Streptococcus pneumonia Not Detected (Not Detect); Streptococcus pyogenes (Gr A) Not Detected (Not Detect); Streptococcus species Not Detected (Not Detect)
== END 2022-04-18 04:50 | disposition short-term general hospital (02) | DRG 862 ==
LOC: ED 15:08 → AC 16:56 → ICU 17:13
PROVIDERS: Internal Medicine Pulmonary Disease; Nurse Practitioner Family; Admitting Provider Neuromusculoskeletal Medicine, Sports Medicine; Emergency Provider Emergency Medicine; PCP Student in an Organized Health Care Education/Training Program; Referring Provider Emergency Medicine; Visit Provider Neuromusculoskeletal Medicine, Sports Medicine
DX: T81.44XA Sepsis following a procedure, initial encounter (principal); G93.41 Metabolic encephalopathy; T81.12XA Postprocedural septic shock, initial encounter; J96.01 Acute respiratory failure with hypoxia; I21.4 Non-ST elevation (NSTEMI) myocardial infarction; N39.0 Urinary tract infection, site not specified; N20.2 Calculus of kidney with calculus of ureter; N99.89 Other postprocedural complications and disorders of genitourinary system; I73.9 Peripheral vascular disease, unspecified; E11.9 Type 2 diabetes mellitus without complications; S00.211A Abrasion of right eyelid and periocular area, initial encounter; V18.0XXA Pedal cycle driver injured in noncollision transport accident in nontraffic accident, initial encounter; Z79.84 Long term (current) use of oral hypoglycemic drugs; Z87.891 Personal history of nicotine dependence; Z79.01 Long term (current) use of anticoagulants; Z20.822 Contact with and (suspected) exposure to COVID-19; I10 Essential (primary) hypertension
CPT/HCPCS: 36415; 36592; 36600; 70450; 71045; 72100; 72125; 73562; 80053; 81001; 82805; 82962; 83036; 83605; 83735; 84145; 84484; 85025; 85730; 87040; 87077; 87086; 87150; 87186; 87635; 87797; 93005; 93010; 94002; 94003; 94660; 94799; 96365; 96366; 96367; 96375; 96376; 99285; 99291; 99292; C1771; C9803; J0131; J0153; J0690; J1170; J1644; J1720; J1815; J1940; J2060; J2250; J2405; J2543; J2704; J2765; J3010; J3475

== ENCOUNTER 2022-05-22 09:15 | Inpatient (IN) | payer MEDICARE, SELFPAY ==
[2022-04-17 16:59] VITALS: BMI 25.4
[2022-04-17 21:00] VITALS: RESP 20
[2022-04-18 03:55] VITALS: PULSE 80; RESP 16; O2SAT 100
[2022-05-22] VITALS (81 sets, daily range): BP systolic 74–180; BP diastolic 39–113; PULSE 54–74; RESP 16–43; TEMP 36.2–36.3; O2SAT 84–100; BMI 27.3; BMI 28.5
--- NOTE | 2022-05-22 | DI.CT.S_ITS ---
PROCEDURE: CT ABDOMEN PELVIS WO CON INDICATIONS: TRUAMA TECHNIQUE: Noncontrast 5 mm thick sections acquired from the diaphragms to the symphysis. 5 mm coronal and sagittal reformats were then performed. For radiation dose reduction, the following was used: automated exposure control, adjustment of mA and/or kV according to patient size. COMPARISON: [facility], CT, CT ABDOMEN PELVIS WO CON, 07/21/2018, 10:48. FINDINGS: Image quality: Excellent. ABDOMEN: Lung bases: Lung bases are clear. Heart size is normal. LAD stent. Solid organs: Liver is normal in size. Gallbladder is grossly unremarkable. . Pancreas is normal in contours. Spleen is normal in size. No adrenal nodules. Right kidney is somewhat small and shrunken. There are nonobstructing lower pole stones. A right extrarenal pelvis and prominence of the proximal right ureter are again noted. Tiny nonobstructing left renal stone. Peritoneum and bowel: Unenhanced bowel loops demonstrate normal wall thickness and caliber. No free fluid or air. Nodes and vessels: No retroperitoneal or mesenteric adenopathy by size criteria. Aorta and inferior vena cava are normal in caliber. Miscellaneous: No ventral hernias. Rectus diastasis. PELVIS: Genitourinary: Diffuse bladder wall thickening. Enlarged prostate. Spear catheter in the bladder. Miscellaneous: Bilateral fat containing inguinal hernias. Bones: No suspicious bony lesions. No vertebral body compression fractures. IMPRESSION: 1. Enlarged prostate, Spear catheter in place, diffuse bladder wall thickening, consistent with bladder outlet obstruction. 2. Bilateral nephrolithiasis. 3. Right kidney is somewhat small and shrunken. Prostate enlargement with diffuse bladder wall thickening, and a Spear catheter in place. Findings are consistent with bladder outlet obstruction. Dictated by: Marshall Carpio M.D. on 05/22/2022 at 16:11 Approved by: Marshall Carpio M.D. on 05/22/2022 at 16:17
--- NOTE | 2022-05-22 09:18 | DI.CT.S_ITS ---
PROCEDURE: CT HEAD/BRAIN WO CON INDICATIONS: fall on thinner today TECHNIQUE: Noncontrast 4.5 mm thick angled axial sections acquired from the foramen magnum to the vertex, with coronal and sagittal reformats. For radiation dose reduction, the following was used: automated exposure control, adjustment of mA and/or kV according to patient size. COMPARISON: [facility], CT, CT FACIAL BONES WO CON, 05/22/2022, 9:20. Outside Facility, RG, CT HEAD W/O CONTRAST, 04/23/2022, 5:09. [facility], CT, CT HEAD/BRAIN WO CON, 04/17/2022, 10:26. FINDINGS: Image quality: Excellent. CSF spaces: Basal cisterns are patent. No extra-axial fluid collections. The ventricles are symmetric in size and shape. Brain: No intracranial bleeds or masses. There is cerebral volume loss for age, with resultant ventricular and sulcal prominence. There are periventricular and deep white matter chronic small vessel ischemic changes. There is intracranial internal carotid artery atherosclerosis. Skull and face: Calvarium and visualized facial bones appear intact, without suspicious lesions. Sinuses: Visualized sinuses and mastoids are clear. IMPRESSION: No acute intracranial hemorrhage is seen. Right periorbital soft tissue swelling is seen, without an associated regional fracture. Dictated by: Willy Pendleton M.D. on 05/22/2022 at 8:39 Approved by: Willy Pendleton M.D. on 05/22/2022 at 8:40
--- NOTE | 2022-05-22 09:18 | DI.CT.S_ITS ---
PROCEDURE: CT FACIAL BONES WO CON INDICATIONS: right periorbital swelling fall today on thinners TECHNIQUE: Noncontrast 2.5 mm thick axial images acquired from the mandible through the frontal sinuses, with coronal and sagittal reformatting. For radiation dose reduction, the following was used: automated exposure control, adjustment of mA and/or kV according to patient size. COMPARISON: [facility], CT, CT HEAD/BRAIN WO CON, 04/17/2022, 10:26. Outside Facility, RG, CT HEAD W/O CONTRAST, 04/23/2022, 5:09. [facility], CT, CT CERVICAL SPINE WO CON, 05/22/2022, 9:20. [facility], CT, CT HEAD/BRAIN WO CON, 05/22/2022, 9:20. FINDINGS: Image quality: Excellent. Bones and teeth: Orbital wu are intact. Sinus wu show no fracture or deformity. Nasal bones and septum are intact. There is remote Visualized portions of the mandible demonstrate no fractures or subluxation. Zygomatic arches are intact. Pterygoid plates are intact. Visualized portions of the skull base and auditory canals are intact. Sinuses: Paranasal sinuses are aerated, without fluid levels, mucosal thickening, or mucoceles. Mastoid air cells are aerated. Soft tissues: Right periorbital soft tissue swelling is seen. Vascular: Visualized vascular structures appear normal in the absence of contrast. Bony vascular foramina and canals are intact. Atherosclerotic calcification is noted. IMPRESSION: No displaced fracture is identified. Right periorbital soft tissue swelling is seen. Dictated by: Willy Pendleton M.D. on 05/22/2022 at 8:36 Approved by: Willy Pendleton M.D. on 05/22/2022 at 8:39
--- NOTE | 2022-05-22 09:26 | DI.CT.S_ITS ---
PROCEDURE: CT CERVICAL SPINE WO CON INDICATIONS: fall on thinner today TECHNIQUE: Noncontrast 3 mm thick sections acquired from the skull base to the T4 level. Sagittal and coronal reformats were then constructed. For radiation dose reduction, the following was used: automated exposure control, adjustment of mA and/or kV according to patient size. COMPARISON: [facility], CT, CT HEAD/BRAIN WO CON, 05/22/2022, 9:20. [facility], CT, CT FACIAL BONES WO CON, 05/22/2022, 9:20. [facility], RG, CT HEAD W/O CONTRAST, 04/23/2022, 5:09. [facility], CT, CT CERVICAL SPINE WO CON, 04/17/2022, 10:26. FINDINGS: Image quality: This examination is limited by involuntary motion artifact. Bones: No fractures or dislocations. Visualized superior ribs are intact. Generalized degenerative changes are seen, which are worst inferiorly. Soft tissues: Prevertebral soft tissues are normal in thickness. No paravertebral hematomas. No apical pneumothoraces. Prominent atherosclerotic calcification can be seen involving the carotid bifurcations. IMPRESSION: Negative for fracture. Degenerative changes, worst inferiorly. Prominent atherosclerotic calcification. Dictated by: Willy Pendleton M.D. on 05/22/2022 at 8:40 Approved by: Willy Pendleton M.D. on 05/22/2022 at 8:42
--- NOTE | 2022-05-22 09:56 | ED_ITS ---
HPI - Fall General Chief Complaint: Fall Stated Complaint: trauma, GLF on thinners Time Seen by Provider: 05/22/22 09:16 History of Present Illness HPI Narrative: Patient is a 69-year-old male history of Gcttcun-Djrad-Zesjo with progressive worsening weakness recent history of all last month with sepsis secondary to UTI/renal calculi, NSTEMI, transferred up to [facility]. He states he was treated with antibiotics he actually had 2 stents placed in his heart. He since went to rehab facility for 2 weeks and he has been home for about a week. He continues to ride his recumbent bicycle. Today he presents as a ground level fall. He uses his walker but felt like his shoulders and arms gave out. He fell hitting the right side of his face. He is on aspirin and Plavix. No loss of consciousness no nausea or vomiting he has no weakness. He denies any fever chills chest pain nausea vomiting Related Data Previous Rx's Medication Instructions Recorded atenolol 50 mg tablet 50 mg PO DAILY #90 tabs 05/31/21 clopidogrel 75 mg tablet (Plavix) 75 mg PO DAILY #90 tabs 05/31/21 lisinopril 5 mg tablet 5 mg PO DAILY #90 tabs 05/31/21 atorvastatin 20 mg tablet (Lipitor) 20 mg PO BEDTIME #90 tabs 07/30/21 albuterol sulfate 90 mcg/actuation 1 puff inhalation Q6H PRN 08/30/21 aerosol inhaler (ProAir HFA) shortness of breath or wheezing #8.5 grams colchicine 0.6 mg tablet 0.6 mg PO DAILY #30 tabs 11/29/21 metformin 1,000 mg tablet 1,000 mg PO BID #180 tabs 12/10/21 ropinirole 4 mg tablet 8 mg PO BEDTIME #180 tabs 02/18/22 potassium citrate 10 mEq (1,080 10 meq PO TID #270 tabs 03/19/22 mg) tablet,extended release alprazolam 0.5 mg tablet 0.5 mg PO DAILY #1 tab 05/20/22 Allergies Allergy/AdvReac Type Severity Reaction Status Date / Time No Known Drug Allergies Allergy Verified 05/21/22 10:51 Review of Systems Review of Systems Narrative: GENERAL: Denies chills, fatigue, malaise, fever, sweats, travel HEENT: Denies sinus pain, ear pain, sore throat, difficulty swallowing, neck pain RESPIRATORY: Denies dyspnea, cough, wheezing, hemoptysis, sputum. CARDIOVASCULAR: Denies chest pain, palpitations, orthopnea, edema GASTROINTESTINAL: Denies nausea, vomiting, abdominal pain, diarrhea, constipation, melena. : Denies dysuria, frequency, incontinence, hematuria, urinary retention, flank pain. MUSCULOSKELETAL: Denies weakness, joint pain, or bony pain SKIN: No rash, no erythema, no pruritus NEUROLOGIC: Progressive worsening weakness PSYCHIATRIC: No concerning psychosocial issues. 12 point review of systems is negative except for those stated above and HPI Patient History Medical History Anticoagulated on heparin Arthritis Bilateral nephrolithiasis Hbqvqxb-Wjcuw-Ssdrw disease Colon cancer Diabetes mellitus treated with oral medication Hernia History of renal calculi Hypertension, essential Mixed hyperlipidemia Peripheral vascular disease of extremity Sleep apnea in adult Surgical History Hx of cystoscopy (10/16/21) Hx of cystoscopy (12/03/21) Hx of cystoscopy (03/25/22) S/P ureteral stent placement Status post colectomy (~1995) Status post vascular bypass Family History Father Ulcer History of blood clots Mother No known problems Social History marital status: household members: spouse lives independently: Yes occupational status: other Smoking Status: Former smoker alcohol intake: current substance use type: does not use Type(s) of exercise: bicycling frequency: 1-2 times per week Smoking Status: Former smoker alcohol intake frequency: a few times a month Substance Use Type: does not use Exam Initial Vital Signs Initial Vital Signs: Vital Signs Temperature 97.4 F L 05/22/22 09:42 Pulse Rate 61 05/22/22 09:42 Respiratory Rate 18 05/22/22 09:42 Blood Pressure 110/67 05/22/22 09:42 Pulse Oximetry 100 05/22/22 09:42 Oxygen Delivery Method 05/22/22 09:42 GENERAL: Alert pleasant 77-year-old male and in [no acute] distress. HEENT: Head atraumatic,EOMI, pupils reactive, superficial laceration and contusion noted right periorbital and inferior face symmetric, [moist] mucous membranes NECK: Nontender CARDIOVASCULAR: Regular rate and rhythm without murmurs, rubs or gallops. RESPIRATORY: Breath sounds equal bilaterally, no wheezes rales or rhonchi. ABDOMEN: Soft, nontender. Normoactive bowel sounds all 4 quadrants. No guarding or rebound. EXTREMITIES: Normal range of motion, no clubbing or edema. 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 Procedures Central Line Placement Right IJ: Time Out Performed: Yes Patient Placed on Monitor/Pulse Ox: Yes Central Line Prep: Chlorhexidine scrub Local Anesthetic: lidocaine 1% Amount of anesthesia used (mL): 5 Ultrasound Used for Placement: Yes Central Line Lumen Inserted: triple Post Procedure: sutured in place, good blood return, all ports aspirated, flushed, capped and sterile dressing applied Post Procedure X-Ray: tip of catheter in good position and no pneumothorax seen Course Orders Ordered: ED Orders 05/22/22 10:15 XR chest 1V Stat Complete Blood Count AUTO DIFF Stat Comprehensive Metabolic Panel Stat Lipase Stat Troponin & CK Cardiac Panel Stat 05/22/22 10:17 Lactate (Lactic Acid) Stat Procalcitonin Stat 05/22/22 10:40 BNP [NT-proBNP (BNP-Adult 18+)] Stat D Dimer Stat 05/22/22 11:43 EKG-12 Lead Stat 05/22/22 12:35 COVID19 -Nasal RAPID/Pre-Proc Stat 05/22/22 12:51 US renal complete Stat 05/22/22 13:00 Urinalysis and Microscopic Stat Urine Culture Stat 05/22/22 13:25 Blood Culture Stat 05/22/22 13:39 US periph venous low extrem bi Stat 05/22/22 15:28 CT chest wo con Stat XR chest 1V Stat 05/22/22 16:18 BMP [Basic Metabolic Panel] Stat Lactate (Lactic Acid) Stat Trop I [Troponin I] Stat 05/22/22 18:15 Consult to Physical Therapy Evaluate & Treat 05/22/22 18:22 Consult to Tele-bioinformatics associate Routine 05/23/22 05:00 BMP [Basic Metabolic Panel] DAILY CBC Auto Diff [Complete Blood Count AUTO DIFF] DAILY 05/24/22 05:00 BMP [Basic Metabolic Panel] DAILY CBC Auto Diff [Complete Blood Count AUTO DIFF] DAILY 05/25/22 05:00 BMP [Basic Metabolic Panel] DAILY CBC Auto Diff [Complete Blood Count AUTO DIFF] DAILY Acetaminophen (Acetaminophen 325 Mg Tablet) 650 mg PO Q6H PRN PRN Reason: Fever/Mild Pain (1-3) Alprazolam (Alprazolam 0.5 Mg Tablet) 0.5 mg PO DAILY [facility] Aspirin (Aspirin Ec 81 Mg Tablet) 81 mg PO DAILY MARICARMEN Atorvastatin Calcium (Atorvastatin 20 Mg Tablet) 20 mg PO BEDTIME MARICARMEN Clopidogrel Bisulfate (Clopidogrel 75 Mg Tablet) 75 mg PO DAILY MARICARMEN Dextrose (Dextrose 50 % In Water 25 Gm/50 Ml Syringe) 25 gm IV PRN PRN PRN Reason: Hypoglycemia Heparin Sodium (Porcine) (Heparin 5,000 Unit/Ml Vial) 5,000 unit SUBCUT BID MARICARMEN Sodium Chloride (Normal Saline 0.9%) 1,000 mls @ 150 mls/hr IV CONT MARICARMEN Last Infusion: 05/22/22 12:41 Dose: 0 mls/hr Documented By: Admin: 05/22/22 11:09 Dose: 150 mls/hr Documented By: AIDAK NOREPINEPHRINE BITARTRATE/D5W (Levophed) 4 mg in 250 mls @ 30 mls/hr IV TITRATE MARICARMEN; Protocol Last Titration: 05/22/22 17:22 Dose: 4 mcg/min, 15 mls/hr Documented By: Titration: 05/22/22 16:51 Dose: 0 mcg/min, 0 mls/hr Documented By: Titration: 05/22/22 16:36 Dose: 4 mcg/min, 15 mls/hr Documented By: Admin: 05/22/22 14:22 Dose: 8 mcg/min, 30 mls/hr Documented By: CHRIS Cefepime HCl 1 gm/ Sodium (Chloride) 100 mls @ 200 mls/hr IV Q24H MARICARMEN Vancomycin HCl (Vancomycin) 1,250 mg in 250 mls @ 250 mls/hr IV Q48H MARICARMEN Insulin Glargine (Insulin Glargine 100 Unit/Ml 3ml Pen) 15 unit SUBCUT 2100 MARICARMEN Insulin Human Lispro (Insulin Lispro 100 Unit/Ml 3ml Vial) 0 unit SUBCUT ACHS MARICARMEN; Protocol Melatonin (Melatonin 3 Mg Tablet) 6 mg PO BEDTIME PRN PRN Reason: Insomnia Naloxone HCl (Naloxone 0.4 Mg/Ml Vial) 0.2 mg IV Q2MIN PRN PRN Reason: Opiate Reversal Polyethylene Glycol (Polyethylene Glycol 3350 17 Gm Powd.Pack) 17 gm PO DAILY PRN PRN Reason: Constipation Sennosides (Sennosides 8.6 Mg Tablet) 8.6 mg PO BID PRN PRN Reason: Constipation Discontinued Medications Dextrose (Dextrose 25 % In Water 2.5 Gm/10 Ml Syringe) 2.5 gm IV NOW ONE Stop: 05/22/22 12:00 Last Admin: 05/22/22 12:41 Dose: 2.5 gm Documented By: CHRIS Enoxaparin Sodium (Enoxaparin 80 Mg/0.8 Ml Syringe) 80 mg 1 mg/kg (80 mg) SUBCUT NOW ONE Stop: 05/22/22 14:16 Last Admin: 05/22/22 15:00 Dose: 80 mg Documented By: JOHANNY Furosemide (Furosemide 40 Mg/4 Ml Vial) 40 mg IV NOW ONE Stop: 05/22/22 13:11 Last Admin: 05/22/22 13:21 Dose: 40 mg Documented By: CHRIS Hydromorphone HCl (Hydromorphone 0.5 Mg Inj) 0.5 mg IV NOW ONE Stop: 05/22/22 17:54 Last Admin: 05/22/22 18:13 Dose: 0.5 mg Documented By: JOHANNY Sodium Chloride (Normal Saline 0.9%) 1,000 mls @ 1,000 mls/hr IV BOLUS ONE Stop: 05/22/22 12:58 Last Infusion: 05/22/22 13:48 Dose: 0 mls/hr Documented By: Admin: 05/22/22 12:46 Dose: 1,000 mls/hr Documented By: CHRIS Ceftriaxone Sodium 2,000 mg/ (Sodium Chloride) 100 mls @ 200 mls/hr IV NOW ONE Stop: 05/22/22 13:52 Last Infusion: 05/22/22 15:59 Dose: 0 mls/hr Documented By: Admin: 05/22/22 14:01 Dose: 200 mls/hr Documented By: CHRIS Sodium Chloride (Normal Saline 0.9%) 2,052 mls @ 684 mls/hr 30 ml/kg infuse over 3 hr (2052 ml) IV NOW ONE Stop: 05/22/22 17:06 Last Infusion: 05/22/22 18:17 Dose: 0 mls/hr Documented By: Admin: 05/22/22 14:13 Dose: 684 mls/hr Documented By: CHRIS Sodium Chloride (Normal Saline 0.9%) 1,000 mls @ 1,000 mls/hr IV BOLUS ONE Stop: 05/22/22 15:10 Last Admin: 05/22/22 14:17 Dose: Not Given Documented By: CHRIS Lactated Ringer's (Lactated Ringers) 1,000 mls @ 1,000 mls/hr IV BOLUS ONE Stop: 05/22/22 18:03 Last Admin: 05/22/22 18:13 Dose: 1,000 mls/hr Documented By: JOHANNY Insulin Human Regular (Insulin Regular 100 Unit/Ml 3 Ml Vial) 5 unit IV NOW ONE Stop: 05/22/22 12:00 Last Admin: 05/22/22 12:42 Dose: 5 unit Documented By: CHRIS Co-signed By: SIENNA Lidocaine HCl (Lidocaine 2% (Glydo) 6 Ml Gel) 6 ml TOP NOW ONE Stop: 05/22/22 12:53 Last Admin: 05/22/22 13:04 Dose: 6 ml Documented By: CHRIS Morphine Sulfate (Morphine 2 Mg/Ml Inj) 2 mg IV NOW ONE Stop: 05/22/22 13:30 Last Admin: 05/22/22 13:35 Dose: 2 mg Documented By: CHRIS Vital Signs Vital signs: Vital Signs - 8 hr 05/22/22 12:08 05/22/22 12:11 05/22/22 12:11 Pulse Rate 56 L 55 L Respiratory Rate 16 23 Blood Pressure 124/59 L Pulse Oximetry 93 84 L Oxygen Delivery Method Room Air Oxygen Flow Rate 05/22/22 12:30 05/22/22 12:31 05/22/22 12:31 Pulse Rate 57 L 56 L Respiratory Rate 25 H 28 H Blood Pressure 101/64 Pulse Oximetry 89 L 88 L Oxygen Delivery Method Nasal Cannula Oxygen Flow Rate 2 05/22/22 12:40 05/22/22 12:40 05/22/22 12:51 Pulse Rate 55 L 58 L Respiratory Rate 21 29 H Blood Pressure 106/55 L Pulse Oximetry 89 L 99 Oxygen Delivery Method Nasal Cannula Nasal Cannula Oxygen Flow Rate 2 2 05/22/22 12:51 05/22/22 13:00 05/22/22 13:02 Pulse Rate 58 L Respiratory Rate 23 Blood Pressure 93/52 L 103/57 L Pulse Oximetry 98 Oxygen Delivery Method Oxygen Flow Rate 05/22/22 13:02 05/22/22 13:11 05/22/22 13:11 Pulse Rate 59 L 61 Respiratory Rate 28 H 23 Blood Pressure 100/55 L Pulse Oximetry 98 Oxygen Delivery Method Oxygen Flow Rate 05/22/22 13:23 05/22/22 13:23 05/22/22 13:30 Pulse Rate 61 60 Respiratory Rate 35 H 25 H Blood Pressure 102/58 L Pulse Oximetry 97 98 Oxygen Delivery Method Nasal Cannula Oxygen Flow Rate 2 05/22/22 13:32 05/22/22 13:32 05/22/22 13:41 Pulse Rate 60 Respiratory Rate 24 Blood Pressure 99/53 L 90/46 L Pulse Oximetry 97 Oxygen Delivery Method Nasal Cannula Oxygen Flow Rate 2 05/22/22 13:41 05/22/22 14:00 05/22/22 14:04 Pulse Rate 59 L 57 L Respiratory Rate 20 42 H Blood Pressure 79/44 L Pulse Oximetry 96 94 Oxygen Delivery Method Oxygen Flow Rate 05/22/22 14:04 05/22/22 14:06 05/22/22 14:06 Pulse Rate 58 L 58 L Respiratory Rate 22 36 H Blood Pressure 80/44 L Pulse Oximetry 94 94 Oxygen Delivery Method Room Air Oxygen Flow Rate 05/22/22 14:10 05/22/22 14:10 05/22/22 14:18 Pulse Rate 57 L Respiratory Rate 28 H Blood Pressure 75/45 L 74/43 L Pulse Oximetry 95 Oxygen Delivery Method Oxygen Flow Rate 05/22/22 14:18 05/22/22 14:20 05/22/22 14:20 Pulse Rate 57 L 57 L Respiratory Rate 19 21 Blood Pressure 74/39 L Pulse Oximetry 93 93 Oxygen Delivery Method Oxygen Flow Rate 05/22/22 14:25 05/22/22 14:25 05/22/22 14:30 Pulse Rate 57 L Respiratory Rate 22 Blood Pressure 75/40 L 115/60 Pulse Oximetry 95 Oxygen Delivery Method Oxygen Flow Rate 05/22/22 14:30 05/22/22 14:36 05/22/22 14:36 Pulse Rate 54 L 55 L Respiratory Rate 21 21 Blood Pressure 101/61 Pulse Oximetry 95 93 Oxygen Delivery Method Oxygen Flow Rate 05/22/22 14:41 05/22/22 14:41 05/22/22 14:50 Pulse Rate 55 L Respiratory Rate 27 H Blood Pressure 129/66 126/62 Pulse Oximetry 93 Oxygen Delivery Method Oxygen Flow Rate 05/22/22 14:50 05/22/22 14:56 05/22/22 14:56 Pulse Rate 57 L 57 L Respiratory Rate 31 H 26 H Blood Pressure 87/46 L Pulse Oximetry 95 94 Oxygen Delivery Method Oxygen Flow Rate 05/22/22 15:00 05/22/22 15:05 05/22/22 15:05 Pulse Rate 56 L 59 L Respiratory Rate 40 H 32 H Blood Pressure 131/62 Pulse Oximetry 96 93 Oxygen Delivery Method Oxygen Flow Rate 05/22/22 15:11 05/22/22 15:11 05/22/22 15:21 Pulse Rate 60 Respiratory Rate 26 H Blood Pressure 147/113 H 145/79 H Pulse Oximetry 95 Oxygen Delivery Method Oxygen Flow Rate 05/22/22 15:21 05/22/22 15:26 05/22/22 15:26 Pulse Rate 58 L 58 L Respiratory Rate 34 H 31 H Blood Pressure 145/65 H Pulse Oximetry 95 95 Oxygen Delivery Method Oxygen Flow Rate 05/22/22 15:30 05/22/22 15:31 05/22/22 15:31 Pulse Rate 58 L 58 L Respiratory Rate 38 H 43 H Blood Pressure 150/79 H Pulse Oximetry 92 94 Oxygen Delivery Method Oxygen Flow Rate 05/22/22 15:43 05/22/22 15:43 05/22/22 15:49 Pulse Rate 58 L 57 L Respiratory Rate 28 H 32 H Blood Pressure 117/59 L Pulse Oximetry 95 93 Oxygen Delivery Method Oxygen Flow Rate 05/22/22 15:49 05/22/22 15:55 05/22/22 15:55 Pulse Rate 57 L Respiratory Rate 26 H Blood Pressure 122/65 180/73 H Pulse Oximetry 93 Oxygen Delivery Method Oxygen Flow Rate 05/22/22 15:58 05/22/22 15:58 05/22/22 16:00 Pulse Rate 57 L Respiratory Rate 26 H Blood Pressure 141/68 H 147/70 H Pulse Oximetry 97 Oxygen Delivery Method Oxygen Flow Rate 05/22/22 16:00 05/22/22 16:30 05/22/22 16:30 Pulse Rate 57 L 57 L Respiratory Rate 35 H 22 Blood Pressure 115/76 Pulse Oximetry 95 94 Oxygen Delivery Method Oxygen Flow Rate 05/22/22 17:00 05/22/22 17:01 05/22/22 17:01 Pulse Rate 59 L 59 L Respiratory Rate 29 H 19 Blood Pressure 80/62 L Pulse Oximetry 93 94 Oxygen Delivery Method Oxygen Flow Rate 05/22/22 17:21 05/22/22 17:21 05/22/22 17:30 Pulse Rate 57 L 57 L Respiratory Rate 24 29 H Blood Pressure 90/55 L Pulse Oximetry 96 96 Oxygen Delivery Method Oxygen Flow Rate MDM - Fall Lab Data Result diagrams: 05/22/22 10:15 05/22/22 16:18 Labs: Lab Results 05/22/22 05/22/22 05/22/22 Range/Units 10:15 10:15 10:17 WBC 5.0 (4.5-11.0) X10^3/uL RBC 3.05 L (4.5-5.9) X10^6/uL Hgb 9.4 L (13.5-17.5) g/dL Hct 28.4 L (41-53) % MCV 93.4 (80-100) fL MCH 30.9 (26-34) PG MCHC 33.1 (30-36) % RDW 16.5 H (11.6-14.8) % Plt Count 148 L (150-400) X10^3/uL Neut % (Auto) 77.9 H (50-75) % Lymph % (Auto) 14.7 L (25-40) % [place] % (Auto) 5.4 (3-14) % Eos % (Auto) 1.4 L (2-4) % Baso % (Auto) 0.6 (0-2) % Neut # (Auto) 3900 (0417-4283) /uL Lymph # (Auto) 700 L (9257-1362) /uL [place] # (Auto) 300 (0-900) /uL Eos # (Auto) 100 (0-450) /uL Baso # (Auto) 0 (0-100) /uL D-Dimer (<500) ng/ml Sodium 137 (137-145) mmol/L Potassium 6.1 H (3.4-5.1) mmol/L Chloride 106 (98-107) mmol/L Carbon Dioxide 13 L (22-32) mmol/L BUN 83 H (9-20) mg/dL Creatinine 4.42 H (0.66-1.25) mg/dL Estimated GFR 13 L (>60) mL/min BUN/Creatinine Ratio 18.8 (6-22) Glucose 72 L (80-110) mg/dL Lactate 1.4 (0.7-2.1) mmol/L Calcium 8.1 L (8.4-10.2) mg/dL Total Bilirubin 0.3 (0.2-1.3) mg/dL AST 19 (17-59) IU/L ALT 25 (<50) IU/L Alkaline Phosphatase 70 (38-126) U/L Total Creatine Kinase 97 (55-170) U/L CK-MB (CK-2) TNP CK-MB (CK-2) Rel Index TNP Troponin I < 0.012 (0.01-0.034) ng/mL NT-Pro-B Natriuret Pep (<450) pg/mL Total Protein 7.0 (6.3-8.2) g/dL Albumin 4.2 (3.5-5.0) g/dL Globulin 2.8 (1.7-4.1) g/dL Albumin/Globulin Ratio 1.5 (1.0-2.8) Lipase 209 (23-300) U/L Procalcitonin (<0.5) ng/mL Urine Color Urine Appearance Urine pH (4.5-8.0) Ur Specific [place] (1.000-1.035) Urine Protein (Negative) Urine Glucose (UA) (Negative) g/dL Urine Ketones (NEGATIVE) Urine Occult Blood (Negative) Urine Nitrate (Negative) Urine Bilirubin (NEGATIVE) Urine Urobilinogen (0.2) E.U./dL Ur Leukocyte Esterase (NEGATIVE) Urine RBC (0-5/HPF) Urine WBC (0-5/HPF) Amorphous Sediment Urine Bacteria (None) Ur Culture Indicated? SARS-CoV-2 (PCR) (Negative) 05/22/22 05/22/2222 Range/Units 10:17 10:40 10:40 WBC (4.5-11.0) X10^3/uL RBC (4.5-5.9) X10^6/uL Hgb (13.5-17.5) g/dL Hct (41-53) % MCV (80-100) fL MCH (26-34) PG MCHC (30-36) % RDW (11.6-14.8) % Plt Count (150-400) X10^3/uL Neut % (Auto) (50-75) % Lymph % (Auto) (25-40) % [place] % (Auto) (3-14) % Eos % (Auto) (2-4) % Baso % (Auto) (0-2) % Neut # (Auto) (5931-5516) /uL Lymph # (Auto) (0485-6556) /uL [place] # (Auto) (0-900) /uL Eos # (Auto) (0-450) /uL Baso # (Auto) (0-100) /uL D-Dimer 1535 H (<500) ng/ml Sodium (137-145) mmol/L Potassium (3.4-5.1) mmol/L Chloride (98-107) mmol/L Carbon Dioxide (22-32) mmol/L BUN (9-20) mg/dL Creatinine (0.66-1.25) mg/dL Estimated GFR (>60) mL/min BUN/Creatinine Ratio (6-22) Glucose (80-110) mg/dL Lactate (0.7-2.1) mmol/L Calcium (8.4-10.2) mg/dL Total Bilirubin (0.2-1.3) mg/dL AST (17-59) IU/L ALT (<50) IU/L Alkaline Phosphatase (38-126) U/L Total Creatine Kinase (55-170) U/L CK-MB (CK-2) CK-MB (CK-2) Rel Index Troponin I (0.01-0.034) ng/mL NT-Pro-B Natriuret Pep 1950 H (<450) pg/mL Total Protein (6.3-8.2) g/dL Albumin (3.5-5.0) g/dL Globulin (1.7-4.1) g/dL Albumin/Globulin Ratio (1.0-2.8) Lipase (23-300) U/L Procalcitonin 0.15 (<0.5) ng/mL Urine Color Urine Appearance Urine pH (4.5-8.0) Ur Specific [place] (1.000-1.035) Urine Protein (Negative) Urine Glucose (UA) (Negative) g/dL Urine Ketones (NEGATIVE) Urine Occult Blood (Negative) Urine Nitrate (Negative) Urine Bilirubin (NEGATIVE) Urine Urobilinogen (0.2) E.U./dL Ur Leukocyte Esterase (NEGATIVE) Urine RBC (0-5/HPF) Urine WBC (0-5/HPF) Amorphous Sediment Urine Bacteria (None) Ur Culture Indicated? SARS-CoV-2 (PCR) (Negative) 05/22/22 05/22/22 05/22/22 Range/Units 12:35 13:00 16:18 WBC (4.5-11.0) X10^3/uL RBC (4.5-5.9) X10^6/uL Hgb (13.5-17.5) g/dL Hct (41-53) % MCV (80-100) fL MCH (26-34) PG MCHC (30-36) % RDW (11.6-14.8) % Plt Count (150-400) X10^3/uL Neut % (Auto) (50-75) % Lymph % (Auto) (25-40) % [place] % (Auto) (3-14) % Eos % (Auto) (2-4) % Baso % (Auto) (0-2) % Neut # (Auto) (3770-8697) /uL Lymph # (Auto) (9598-2529) /uL [place] # (Auto) (0-900) /uL Eos # (Auto) (0-450) /uL Baso # (Auto) (0-100) /uL D-Dimer (<500) ng/ml Sodium 139 (137-145) mmol/L Potassium 5.6 H (3.4-5.1) mmol/L Chloride 110 H (98-107) mmol/L Carbon Dioxide 13 L (22-32) mmol/L BUN 77 H (9-20) mg/dL Creatinine 3.63 H (0.66-1.25) mg/dL Estimated GFR 16 L (>60) mL/min BUN/Creatinine Ratio 21.2 (6-22) Glucose 93 (80-110) mg/dL Lactate (0.7-2.1) mmol/L Calcium 7.2 L (8.4-10.2) mg/dL Total Bilirubin (0.2-1.3) mg/dL AST (17-59) IU/L ALT (<50) IU/L Alkaline Phosphatase (38-126) U/L Total Creatine Kinase (55-170) U/L CK-MB (CK-2) CK-MB (CK-2) Rel Index Troponin I (0.01-0.034) ng/mL NT-Pro-B Natriuret Pep (<450) pg/mL Total Protein (6.3-8.2) g/dL Albumin (3.5-5.0) g/dL Globulin (1.7-4.1) g/dL Albumin/Globulin Ratio (1.0-2.8) Lipase (23-300) U/L Procalcitonin (<0.5) ng/mL Urine Color [place] Urine Appearance Sl cloudy Urine pH 5.0 (4.5-8.0) Ur Specific [place] 1.020 (1.000-1.035) Urine Protein 2+ H (Negative) Urine Glucose (UA) Trace H (Negative) g/dL Urine Ketones Negative (NEGATIVE) Urine Occult Blood 3+ H (Negative) Urine Nitrate Positive H (Negative) Urine Bilirubin Negative (NEGATIVE) Urine Urobilinogen 1.0 (0.2) E.U./dL Ur Leukocyte Esterase 1+ H (NEGATIVE) Urine RBC >100/hpf H (0-5/HPF) Urine WBC 5-10/hpf H (0-5/HPF) Amorphous Sediment 1+ Urine Bacteria Few (2-10) H (None) Ur Culture Indicated? Specimen cultured SARS-CoV-2 (PCR) Negative (Negative) 05/22/22 05/22/22 Range/Units 16:18 16:18 WBC (4.5-11.0) X10^3/uL RBC (4.5-5.9) X10^6/uL Hgb (13.5-17.5) g/dL Hct (41-53) % MCV (80-100) fL MCH (26-34) PG MCHC (30-36) % RDW (11.6-14.8) % Plt Count (150-400) X10^3/uL Neut % (Auto) (50-75) % Lymph % (Auto) (25-40) % [place] % (Auto) (3-14) % Eos % (Auto) (2-4) % Baso % (Auto) (0-2) % Neut # (Auto) (0585-0272) /uL Lymph # (Auto) (2650-9261) /uL [place] # (Auto) (0-900) /uL Eos # (Auto) (0-450) /uL Baso # (Auto) (0-100) /uL D-Dimer (<500) ng/ml Sodium (137-145) mmol/L Potassium (3.4-5.1) mmol/L Chloride (98-107) mmol/L Carbon Dioxide (22-32) mmol/L BUN (9-20) mg/dL Creatinine (0.66-1.25) mg/dL Estimated GFR (>60) mL/min BUN/Creatinine Ratio (6-22) Glucose (80-110) mg/dL Lactate 0.8 (0.7-2.1) mmol/L Calcium (8.4-10.2) mg/dL Total Bilirubin (0.2-1.3) mg/dL AST (17-59) IU/L ALT (<50) IU/L Alkaline Phosphatase (38-126) U/L Total Creatine Kinase (55-170) U/L CK-MB (CK-2) CK-MB (CK-2) Rel Index Troponin I < 0.012 (0.01-0.034) ng/mL NT-Pro-B Natriuret Pep (<450) pg/mL Total Protein (6.3-8.2) g/dL Albumin (3.5-5.0) g/dL Globulin (1.7-4.1) g/dL Albumin/Globulin Ratio (1.0-2.8) Lipase (23-300) U/L Procalcitonin (<0.5) ng/mL Urine Color Urine Appearance Urine pH (4.5-8.0) Ur Specific [place] (1.000-1.035) Urine Protein (Negative) Urine Glucose (UA) (Negative) g/dL Urine Ketones (NEGATIVE) Urine Occult Blood (Negative) Urine Nitrate (Negative) Urine Bilirubin (NEGATIVE) Urine Urobilinogen (0.2) E.U./dL Ur Leukocyte Esterase (NEGATIVE) Urine RBC (0-5/HPF) Urine WBC (0-5/HPF) Amorphous Sediment Urine Bacteria (None) Ur Culture Indicated? SARS-CoV-2 (PCR) (Negative) Point of Care Testing Glucose POC [address] scan - head: Radiologist's Impression: Signed Patient: Shantanu Underwood MR#: [id number] : 1945 Acct:[id number] Age/Sex: 77 / M Date of Service: 05/22/22 Loc: ED Accession Number: [id number] ?? Procedure: CT head/brain wo con Ordering Provider: Praveena Faith D.O. PROCEDURE:? CT HEAD/BRAIN WO CON ? INDICATIONS:? fall on thinner today ? TECHNIQUE:? Noncontrast 4.5 mm thick angled axial sections acquired from the foramen magnum to the vertex, with coronal and sagittal reformats.? For radiation dose reduction, the following was used:? automated exposure control, adjustment of mA and/or kV according to patient size.? ? COMPARISON:? [facility], CT, CT FACIAL BONES WO CON, 05/22/2022, 9:20.? Outside Facility, RG, CT HEAD W/O CONTRAST, 04/23/2022, 5:09.? [facility], CT, CT HEAD/BRAIN WO CON, 04/17/2022, 10:26. ? FINDINGS:? Image quality:? Excellent.? ? CSF spaces:? Basal cisterns are patent.? No extra-axial fluid collections.? The ventricles are symmetric in size and shape.? ? Brain:? No intracranial bleeds or masses.? There is cerebral volume loss for age, with resultant ventricular and sulcal prominence.? There are periventricular and deep white matter chronic small vessel ischemic changes.? There is intracranial internal carotid artery atherosclerosis.? ? Skull and face:? Calvarium and visualized facial bones appear intact, without suspicious lesions.? ? Sinuses:? Visualized sinuses and mastoids are clear.? ? ? IMPRESSION:? No acute intracranial hemorrhage is seen.? ? Right periorbital soft tissue swelling is seen, without an associated regional fracture. ? ? Dictated by: Willy Pendleton M.D. on 05/22/2022 at 8:39 ? ? CT - cervical spine: Radiologist's Impression: Shantanu Underwood MR#: [id number] : 1945 Acct:[id number] Age/Sex: 77 / M Date of Service: 05/22/22 Loc: ED Accession Number: [id number] ?? Procedure: CT cervical spine wo con Ordering Provider: Praveena Faith D.O. PROCEDURE:? CT CERVICAL SPINE WO CON ? INDICATIONS:? fall on thinner today ? TECHNIQUE:? Noncontrast 3 mm thick sections acquired from the skull base to the T4 level.? Sagittal and coronal reformats were then constructed.? For radiation dose reduction, the following was used:? automated exposure control, adjustment of mA and/or kV according to patient size.? ? COMPARISON:? [facility], CT, CT HEAD/BRAIN WO CON, 05/22/2022, 9:20.? [facility], CT, CT FACIAL BONES WO CON, 05/22/2022, 9:20.? Outside Facility, RG, CT HEAD W/O CONTRAST, 04/23/2022, 5:09.? [facility], CT, CT CERVICAL SPINE WO CON, 04/17/2022, 10:26. ? FINDINGS:? Image quality:? This examination is limited by involuntary motion artifact.? ? Bones:? No fractures or dislocations.? Visualized superior ribs are intact.? ? Generalized degenerative changes are seen, which are worst inferiorly. ? Soft tissues:? Prevertebral soft tissues are normal in thickness.? No paravertebral hematomas.? No apical pneumothoraces.? Prominent atherosclerotic calcification can be seen involving the carotid bifurcations. ? ? IMPRESSION:? Negative for fracture. ? Degenerative changes, worst inferiorly. ? Prominent atherosclerotic calcification.? ? Dictated by: Willy Pendleton M.D. on 05/22/2022 at 8:40 ? ? CT face: Radiologist's Impression: ?Shantanu Underwood MR#: [id number] : 1945 Acct:[id number] Age/Sex: 77 / M Date of Service: 05/22/22 Loc: ED Accession Number: [id number] ?? Procedure: CT facial bones wo con Ordering Provider: Praveena Faith D.O. PROCEDURE:? CT FACIAL BONES WO CON ? INDICATIONS:? right periorbital swelling fall today on thinners ? TECHNIQUE:? Noncontrast 2.5 mm thick axial images acquired from the mandible through the frontal sinuses, with coronal and sagittal reformatting.? For radiation dose reduction, the following was used:? automated exposure control, adjustment of mA and/or kV according to patient size.? ? COMPARISON:? [facility], CT, CT HEAD/BRAIN WO CON, 04/17/2022, 10:26.? Outside Facility, RG, CT HEAD W/O CONTRAST, 04/23/2022, 5:09.? [facility], CT, CT CERVICAL SPINE WO CON, 05/22/2022, 9:20.? [facility], CT, CT HEAD/BRAIN WO CON, 05/22/2022, 9:20. ? FINDINGS:? Image quality:? Excellent.? ? Bones and teeth:? Orbital wu are intact.? Sinus wu show no fracture or deformity.? Nasal bones and septum are intact.? There is remote Visualized portions of the mandible demonstrate no fractures or subluxation.? Zygomatic arches are intact.? Pterygoid plates are intact.? Visualized portions of the skull base and auditory canals are intact.? ? Sinuses:? Paranasal sinuses are aerated, without fluid levels, mucosal thickening, or mucoceles.? Mastoid air cells are aerated.? ? Soft tissues:? Right periorbital soft tissue swelling is seen. ? Vascular:? Visualized vascular structures appear normal in the absence of contrast.? Bony vascular foramina and canals are intact.? Atherosclerotic calcification is noted.? ? ? IMPRESSION:? No displaced fracture is identified. ? Right periorbital soft tissue swelling is seen. ? ? Dictated by: Willy Pendleton M.D. on 05/22/2022 at 8:36 ? ? Approved by: Willy Pendleton M.D. on 05/22/2022 at 8:39 ? us renal: Radiologist's Impression: [address] [address] Ultrasound Report Signed Patient: Shantanu Underwood MR#: [id number] : 1945 Acct:[id number] Age/Sex: 77 / M Date of Service: 05/22/22 Loc: ED Accession Number: [id number] ?? Procedure: US renal complete Ordering Provider: Praveena Faith D.O. PROCEDURE:? US RENAL COMPLETE ? INDICATIONS:? NEW RENAL FAILURE ? TECHNIQUE:? Real-time scanning was performed of the kidneys and bladder, with image documentation.? ? COMPARISON:? None. ? FINDINGS:? ? Kidneys:? Kidneys are normal in size.? Right kidney measures 9.8 cm long; left kidney measures 12.3 cm long.? Right renal cortical thickness is 0.5 cm; left renal cortical thickness is 1.5 cm.? Renal cortical echotexture is normal.? No hydronephrosis.? 5 mm nonobstructing right upper pole renal stone.? No suspicious solid mass lesions.? ? Bladder:? A Spear catheter decompresses the bladder.? No ureteral jets are identified. ? Miscellaneous:? No free pelvic fluid.? ? IMPRESSION:? Normal size kidneys with no evidence of hydronephrosis.? Nonobstructing right renal stone. ? ? Dictated by: Marshall Carpio M.D. on 05/22/2022 at 13:42 ? ? CT scan - abdomen/pelvis: Radiologist's Impression: [address] [address] [address] Scan Report Signed Patient: Shantanu Underwood MR#: [id number] : 1945 Acct:[id number] Age/Sex: 77 / M Date of Service: 05/22/22 Loc: ED Accession Number: [id number] ?? Procedure: CT abdomen pelvis wo con Ordering Provider: Praveena Faith D.O. PROCEDURE:? CT ABDOMEN PELVIS WO CON ? INDICATIONS:? TRUAMA ? TECHNIQUE:? Noncontrast 5 mm thick sections acquired from the diaphragms to the symphysis.? 5 mm coronal and sagittal reformats were then performed.? For radiation dose reduction, the following was used:? automated exposure control, adjustment of mA and/or kV according to patient size.? ? COMPARISON:? [facility], CT, CT ABDOMEN PELVIS WO CON, 07/21/2018, 10:48. ? FINDINGS:? Image quality:? Excellent.? ? ABDOMEN:? Lung bases:? Lung bases are clear.? Heart size is normal.? LAD stent.? ? Solid organs:? Liver is normal in size.? Gallbladder is grossly unremarkable. .? Pancreas is normal in contours.? Spleen is normal in size.? No adrenal nodules.? Right kidney is somewhat small and shrunken.? There are nonobstructing lower pole stones.? A right extrarenal pelvis and prominence of the proximal right ureter are again noted.? Tiny nonobstructing left renal stone. ? Peritoneum and bowel:? Unenhanced bowel loops demonstrate normal wall thickness and caliber.? No free fluid or air.? ? Nodes and vessels:? No retroperitoneal or mesenteric adenopathy by size criteria.? Aorta and inferior vena cava are normal in caliber.? ? Miscellaneous:? No ventral hernias.? Rectus diastasis. ? ? PELVIS:? Genitourinary:? Diffuse bladder wall thickening.? Enlarged prostate.? Spear catheter in the bladder. ? Miscellaneous:? Bilateral fat containing inguinal hernias. ? Bones:? No suspicious bony lesions.? No vertebral body compression fractures.? ? IMPRESSION:? ? 1. Enlarged prostate, Spear catheter in place, diffuse bladder wall thickening, consistent with bladder outlet obstruction.? ? 2. Bilateral nephrolithiasis. ? 3. Right kidney is somewhat small and shrunken.? Prostate enlargement with diffuse bladder wall thickening, and a Spear catheter in place.? Findings are consistent with bladder outlet obstruction. ? ? Dictated by: Marshall Carpio M.D. on 05/22/2022 at 16:11 ? ? Approved by: Marshall Carpio M.D. on 05/22/2022 at 16:17 ? CT scan - chest: Radiologist's Impression: Shantanu Underwood MR#: [id number] : 1945 Acct:[id number] Age/Sex: 77 / M Date of Service: 05/22/22 Loc: ED Accession Number: [id number] ?? Procedure: CT chest wo con Ordering Provider: Praveena Faith D.O. PROCEDURE:? CT CHEST WO CON ? INDICATIONS:? right sided pain after fall ? TECHNIQUE: Noncontrast 5 mm thick sections acquired from the pulmonary apices to the posterior costophrenic angles.? 1 mm lung window, 5 mm thick coronal and sagittal and 7 mm axial MIP reformats were then acquired.? For radiation dose reduction, the following was used:? automated exposure control, adjustment of mA and/or kV according to patient size.? ? COMPARISON:? [facility], CR, XR CHEST 1V, 05/22/2022, 15:29.? [facility], CT, CT ANGIO CHEST PE PROTOCOL, 07/21/2018, 10:48. ? FINDINGS:? Image quality:? Excellent.? ? Lungs and pleura:? Bibasilar bronchial wall thickening and associated patchy bibasilar atelectasis.? No pleural effusions or pneumothorax.? Central and peripheral airways are patent and normal in caliber.? ? Mediastinum:? Heart size is normal.? No pericardial effusion.? Coronary artery stent.? No mediastinal adenopathy by size criteria.? Thoracic aorta and central pulmonary arteries are normal in size.? Esophagus is normal in caliber.? No hiatal hernia.? ? Bones and chest wall:? No suspicious bony lesions.? No vertebral body compression fractures.? No axillary or supraclavicular adenopathy by size criteria.? Thyroid gland is unremarkable as visualized.? Right IJ central line.? ? Abdomen:? Visualized upper abdominal solid organs and bowel loops appear normal in the absence of contrast.? ? IMPRESSION:? ? 1. Bibasilar bronchial wall thickening and patchy bibasilar atelectasis. ? 2. Coronary artery stent.? ? ? Dictated by: Marshall Carpio M.D. on 05/22/2022 at 16:07 ? ? Approved by: Marshall Carpio M.D. on 05/22/2022 at 16: CXR 2: Radiologist's Impression: XRay Report Signed Patient: Shantanu Underwood MR#: [id number] : 1945 Acct:[id number] Age/Sex: 77 / M Date of Service: 05/22/22 Loc: ED Accession Number: [id number] ?? Procedure: XR chest 1V Ordering Provider: Praveena Faith D.O. PROCEDURE:? XR CHEST 1V ? INDICATIONS:? right central line ? TECHNIQUE:? One view of the chest was acquired.? ? COMPARISON:? [facility], CR, XR CHEST 1V, 05/22/2022, 10:27. ? FINDINGS:? ? Surgical changes and devices:? Right IJ line tip projects to the SVC right atrial junction. ? Lungs and pleura:? Submaximal inspiration with patchy bibasilar atelectasis.? No pleural effusions or pneumothorax.? ? Mediastinum:? Mediastinal contours appear normal.? Heart size is normal.? ? Bones and chest wall:? No suspicious bony lesions.? Overlying soft tissues appear unremarkable.? ? IMPRESSION:? Right IJ line projects to the SVC right atrial junction. ? ? ECG Data Interpretation: Normal sinus rhythm rate 54 SC interval 206 QRS 120 QTC male are [address] changes or T-wave inversions similar to previous EKG MDM Narrative Medical decision making narrative: Patient had weakness taken recent history. Blood work is shows that he actually is hyperkalemic and new onset renal failure with a creatinine of 4.4 previously a creatinine of 1.3. He has no leukocytosis or anemia. During his stay he starts developing worsening right-sided chest pain worse with movement. His blood pressure decreases and he starts becoming hypoxic. states that he is not supposed to lay flat due to a chronic ongoing right hemidiaphragm. Urinalysis does show continued infection. states that he supposed to take Cipro today. He had his a ureter stent removed yesterday in the office. He is given the sepsis fluids and Levophed is started. Central line is placed concern for ongoing sepsis although he does not have leukocytosis or an elevated lactate. Really complaining of this right-sided chest pain is possible fracture however we reviewed the x-ray do not see a pneumothorax although it is possible there is a mild pneumothorax. Patient had a recent hospitalization with sepsis and cardiac stents placed. D- dimer is elevated 1500- bilateral Dopplers she is given an empiric dose of Lovenox. Also found to have a UTI with nitrates started on Rocephin Discharge Plan Departure Patient Disposition: Admitted As Inpatient Clinical Impression: Acute renal failure, Bladder outlet obstruction, Acute hyperkalemia, Chest wall contusion, Shock
--- NOTE | 2022-05-22 10:15 | DI.RAD.S_ITS ---
PROCEDURE: XR CHEST 1V INDICATIONS: fall TECHNIQUE: One view of the chest was acquired. COMPARISON: [facility], CR, XR CHEST 1V, 04/17/2022, 14:56. [facility], CR, XR CHEST 1V, 04/17/2022, 18:15. [facility], CR, XR CHEST 1V, 04/17/2022, 22:37. FINDINGS: Surgical changes and devices: None. Lungs and pleura: Chronic elevation of the left hemidiaphragm with left basilar atelectasis versus scarring. No pleural effusions or pneumothorax. Mediastinum: Mediastinal contours appear normal. Heart size is normal. Bones and chest wall: No suspicious bony lesions. Overlying soft tissues appear unremarkable. IMPRESSION: Chronic elevation of left hemidiaphragm with left basilar atelectasis versus scarring. No acute infiltrates. Dictated by: Marshall Carpio M.D. on 05/22/2022 at 11:31 Approved by: Marshall Carpio M.D. on 05/22/2022 at 11:32
[2022-05-22 10:56] LABS: Add Manual Diff / Slide Review NO; Basophils Absolute Auto 0 /uL (0-100); Basophils Percent Auto 0.6 % (0-2); Eosinophils Absolute Auto 100 /uL (0-450); Eosinophils Percent Auto 1.4 % (2-4); Hematocrit 28.4 % (41-53); Hemoglobin 9.4 g/dL (13.5-17.5); Lymphocytes Absolute Auto 700 /uL (1100-4500); Lymphocytes Percent Auto 14.7 % (25-40); Mean Corpuscular HGB Conc 33.1 % (30-36); Mean Corpuscular Hemoglobin 30.9 PG (26-34); Mean Corpuscular Volume 93.4 fL (80-100); Monocytes Absolute Auto 300 /uL (0-900); Monocytes Percent Auto 5.4 % (3-14); Neutrophils Absolute Auto 3900 /uL (1500-7000); Neutrophils Percent Auto 77.9 % (50-75); Platelet Count 148 X10^3/uL (150-400); Red Blood Cell Count 3.05 X10^6/uL (4.5-5.9); Red Cell Distribution Width 16.5 % (11.6-14.8)
[2022-05-22] MEDS: SODIUM CHLORIDE 0.9% 1,000 ML 150 ML IV (11:09)
[2022-05-22 11:26] LABS: Alanine Aminotransferase 25 IU/L (<50); Albumin 4.2 g/dL (3.5-5.0); Albumin Globulin Ratio 1.5 (1.0-2.8); Alkaline Phosphatase 70 U/L (38-126); Aspartate Aminotransferase 19 IU/L (17-59); BUN Creatinine Ratio 18.8 (6-22); Bilirubin Total 0.3 mg/dL (0.2-1.3); Blood Urea Nitrogen 83 mg/dL (9-20); Calcium 8.1 mg/dL (8.4-10.2); Carbon Dioxide 13 mmol/L (22-32); Chloride 106 mmol/L (98-107); Creatine Kinase 97 U/L (55-170); Estimated Glomerular Filt Rate 13 mL/min (>60); Globulin 2.8 g/dL (1.7-4.1); Glucose 72 mg/dL (80-110); HEMOLYSIS < 15 (0-50); Lipase 209 U/L (23-300); Sodium 137 mmol/L (137-145)
[2022-05-22 11:27] LABS: Potassium 6.1 mmol/L (3.4-5.1)
[2022-05-22 11:37] LABS: Troponin I < 0.012 ng/mL (0.01-0.034)
[2022-05-22] MEDS: DEXTROSE 25 % IN WATER 2.5 GM/10 ML SYRINGE IV (12:41)
[2022-05-22] MEDS: INSULIN REGULAR 100 UNIT/ML 3 ML VIAL IV (12:42)
[2022-05-22] MEDS: SODIUM ZIRCONIUM CYCLOSILICATE 10 GM POWD.PACK PO ×2 (12:42→21:56)
[2022-05-22] MEDS: SODIUM CHLORIDE 0.9% 1,000 ML 1000 ML IV (12:46)
--- NOTE | 2022-05-22 12:51 | DI.US.S_ITS ---
PROCEDURE: US RENAL COMPLETE INDICATIONS: NEW RENAL FAILURE TECHNIQUE: Real-time scanning was performed of the kidneys and bladder, with image documentation. COMPARISON: None. FINDINGS: Kidneys: Kidneys are normal in size. Right kidney measures 9.8 cm long; left kidney measures 12.3 cm long. Right renal cortical thickness is 0.5 cm; left renal cortical thickness is 1.5 cm. Renal cortical echotexture is normal. No hydronephrosis. 5 mm nonobstructing right upper pole renal stone. No suspicious solid mass lesions. Bladder: A Spear catheter decompresses the bladder. No ureteral jets are identified. Miscellaneous: No free pelvic fluid. IMPRESSION: Normal size kidneys with no evidence of hydronephrosis. Nonobstructing right renal stone. Dictated by: Marshall Carpio M.D. on 05/22/2022 at 13:42 Approved by: Marshall Carpio M.D. on 05/22/2022 at 13:43
[2022-05-22] MEDS: LIDOCAINE 2% (GLYDO) 6 ML GEL TOP (13:04)
[2022-05-22 13:05] LABS: COVID19 -Nasal RAPID Negative (Negative)
[2022-05-22 13:07] LABS: D Dimer 1535 ng/ml (<500)
[2022-05-22 13:20] LABS: NT-proBNP (BNP-Adult 18+) 1950 pg/mL (<450)
[2022-05-22] MEDS: FUROSEMIDE 40 MG/4 ML VIAL IV (13:21)
[2022-05-22 13:25] LABS: Bilirubin Urine UA NEGATIVE (NEGATIVE); Glucose Urine UA TRACE g/dL (Negative); Ketones Urine UA NEGATIVE (NEGATIVE); Leukocyte Esterase Urine UA 1+ (NEGATIVE); Nitrite Urine UA POSITIVE (Negative); Occult Blood Urine UA 3+ (Negative); Protein Urine UA 2+ (Negative)
[2022-05-22 13:26] LABS: Appearance Urine UA SL CLOUDY; Color Urine UA ORANGE
[2022-05-22 13:33] LABS: Lactate (Lactic Acid) 1.4 mmol/L (0.7-2.1)
[2022-05-22] MEDS: MORPHINE 2 MG/ML INJ IV (13:35)
--- NOTE | 2022-05-22 13:39 | DI.US.S_ITS ---
PROCEDURE: US PERIPH VENOUS LOW EXTREM BI INDICATIONS: + D Dimer, + swelling right calf TECHNIQUE: Real-time imaging, as well as color and pulse Doppler interrogation, were performed of the deep veins of both legs from the inguinal ligament to the popliteal fossa. COMPARISON: None. FINDINGS: Right: The common femoral, femoral and popliteal veins are normally compressible, and free of intraluminal thrombus. Color and pulse Doppler demonstrate normal phasic intravascular flow. There is normal augmentation response to distal compression maneuver. Left: The common femoral, femoral and popliteal veins are normally compressible, and free of intraluminal thrombus. Color and pulse Doppler demonstrate normal phasic intravascular flow. There is normal augmentation response to distal compression maneuver. Left greater saphenous vein was not visualized and compatible with patient reported history of venous graft harvesting for bypass surgery. IMPRESSION: Negative for deep venous thrombosis of the bilateral lower extremity. Dictated by: Narayan Daugherty M.D. on 05/22/2022 at 17:15 Approved by: Narayan Daugherty M.D. on 05/22/2022 at 17:17
[2022-05-22 13:45] LABS: RBC Urine >100/HPF (0-5/HPF); WBC Urine 5-10/HPF (0-5/HPF)
[2022-05-22 13:46] LABS: Amorphous Sediment Urine 1+; Bacteria Urine Few (2-10); Culture Indicated Urine Specimen Cultured
[2022-05-22 13:51] LABS: Procalcitonin 0.15 ng/mL (<0.5)
[2022-05-22] MEDS: cefTRIAXone 2,000 MG in SODIUM CHLORIDE 0.9% 100 ML 200 MG IV (14:01)
[2022-05-22] MEDS: SODIUM CHLORIDE 0.9% 2,052 ML 684 ML IV (14:13)
[2022-05-22] MEDS: NOREPINEPHRINE BITARTRATE/D5W 4 MG/250 ML PLAST..BAG 30 MG IV (14:22)
[2022-05-22] MEDS: ENOXAPARIN 80 MG/0.8 ML SYRINGE SUBCUT (15:00)
[2022-05-22] MEDS: HYDROMORPHONE 0.5 MG INJ (15:14)
--- NOTE | 2022-05-22 15:28 | DI.RAD.S_ITS ---
PROCEDURE: XR CHEST 1V INDICATIONS: right central line TECHNIQUE: One view of the chest was acquired. COMPARISON: [facility], CR, XR CHEST 1V, 05/22/2022, 10:27. FINDINGS: Surgical changes and devices: Right IJ line tip projects to the SVC right atrial junction. Lungs and pleura: Submaximal inspiration with patchy bibasilar atelectasis. No pleural effusions or pneumothorax. Mediastinum: Mediastinal contours appear normal. Heart size is normal. Bones and chest wall: No suspicious bony lesions. Overlying soft tissues appear unremarkable. IMPRESSION: Right IJ line projects to the SVC right atrial junction. Dictated by: Marshall Carpio M.D. on 05/22/2022 at 16:38 Approved by: Marshall Carpio M.D. on 05/22/2022 at 16:39
--- NOTE | 2022-05-22 15:28 | DI.CT.S_ITS ---
PROCEDURE: CT CHEST WO CON INDICATIONS: right sided pain after fall TECHNIQUE: Noncontrast 5 mm thick sections acquired from the pulmonary apices to the posterior costophrenic angles. 1 mm lung window, 5 mm thick coronal and sagittal and 7 mm axial MIP reformats were then acquired. For radiation dose reduction, the following was used: automated exposure control, adjustment of mA and/or kV according to patient size. COMPARISON: [facility], CR, XR CHEST 1V, 05/22/2022, 15:29. [facility], CT, CT ANGIO CHEST PE PROTOCOL, 07/21/2018, 10:48. FINDINGS: Image quality: Excellent. Lungs and pleura: Bibasilar bronchial wall thickening and associated patchy bibasilar atelectasis. No pleural effusions or pneumothorax. Central and peripheral airways are patent and normal in caliber. Mediastinum: Heart size is normal. No pericardial effusion. Coronary artery stent. No mediastinal adenopathy by size criteria. Thoracic aorta and central pulmonary arteries are normal in size. Esophagus is normal in caliber. No hiatal hernia. Bones and chest wall: No suspicious bony lesions. No vertebral body compression fractures. No axillary or supraclavicular adenopathy by size criteria. Thyroid gland is unremarkable as visualized. Right IJ central line. Abdomen: Visualized upper abdominal solid organs and bowel loops appear normal in the absence of contrast. IMPRESSION: 1. Bibasilar bronchial wall thickening and patchy bibasilar atelectasis. 2. Coronary artery stent. Dictated by: Marshall Carpio M.D. on 05/22/2022 at 16:07 Approved by: Marshall Carpio M.D. on 05/22/2022 at 16:10
[2022-05-22 16:45] LABS: BUN Creatinine Ratio 21.2 (6-22); Blood Urea Nitrogen 77 mg/dL (9-20); Calcium 7.2 mg/dL (8.4-10.2); Carbon Dioxide 13 mmol/L (22-32); Chloride 110 mmol/L (98-107); Estimated Glomerular Filt Rate 16 mL/min (>60); Glucose 93 mg/dL (80-110); HEMOLYSIS < 15 (0-50); Sodium 139 mmol/L (137-145)
[2022-05-22 16:46] LABS: Lactate (Lactic Acid) 0.8 mmol/L (0.7-2.1)
[2022-05-22 16:47] LABS: Potassium 5.6 mmol/L (3.4-5.1)
[2022-05-22 16:57] LABS: Troponin I < 0.012 ng/mL (0.01-0.034)
[2022-05-22] MEDS: HYDROMORPHONE 0.5 MG INJ IV (18:13)
[2022-05-22] MEDS: LACTATED RINGERS 1,000 ML 1000 ML IV (18:13)
[2022-05-22] MEDS: CEFEPIME 1 GM in SODIUM CHLORIDE 0.9% 100 ML IV (21:10)
[2022-05-22] MEDS: FUROSEMIDE 20 MG/2 ML VIAL IV (21:11)
[2022-05-22] MEDS: HEPARIN 5,000 UNIT/ML VIAL 5000 UNIT SUBCUT (21:55)
[2022-05-22] MEDS: ATORVASTATIN 20 MG TABLET PO (21:55)
[2022-05-22] MEDS: VANCOMYCIN 1,250 MG/250 ML PIGGYBACK 250 MG IV (21:56)
[2022-05-22] MEDS: MELATONIN 3 MG TABLET 6 MG PO (21:56)
[2022-05-22] MEDS: HYDROMORPHONE 2 MG TABLET PO (22:10)
[2022-05-22 22:48] LABS: Alanine Aminotransferase 23 IU/L (<50); Albumin 3.6 g/dL (3.5-5.0); Albumin Globulin Ratio 1.5 (1.0-2.8); Alkaline Phosphatase 60 U/L (38-126); Aspartate Aminotransferase 19 IU/L (17-59); BUN Creatinine Ratio 22.1 (6-22); Bilirubin Total 0.1 mg/dL (0.2-1.3); Blood Urea Nitrogen 71 mg/dL (9-20); Calcium 6.9 mg/dL (8.4-10.2); Carbon Dioxide 16 mmol/L (22-32); Chloride 109 mmol/L (98-107); Estimated Glomerular Filt Rate 19 mL/min (>60); Globulin 2.4 g/dL (1.7-4.1); Glucose 140 mg/dL (80-110); HEMOLYSIS < 15 (0-50); Magnesium 1.3 mg/dL (1.6-2.3); Potassium 5.2 mmol/L (3.4-5.1); Sodium 138 mmol/L (137-145)
[2022-05-22 22:59] LABS: Troponin I < 0.012 ng/mL (0.01-0.034)
[2022-05-23] VITALS (110 sets, daily range): BP systolic 65–171; BP diastolic 40–97; PULSE 58–92; RESP 3–44; TEMP 36.2–36.7; O2SAT 85–100
[2022-05-23] MEDS: ROPINIROLE 1 MG TABLET 4 MG PO ×2 (00:17→18:23)
[2022-05-23] MEDS: NOREPINEPHRINE BITARTRATE/D5W 4 MG/250 ML PLAST..BAG 22.5 MG IV (01:47)
--- NOTE | 2022-05-23 01:52 | PM.HP.1 ---
History of Present Illness History of Present Illness Date Patient Seen: 05/22/22 Time Patient Seen: 18:19 Chief complaint: trauma, GLF on thinners Narrative: Shantanu Underwood is a 69-year-old male history of Lixrjdd-Nulaf-Tgast dz with related chronic muscular deconditioning/weakness, chronic left diaphragmatic paralysis, PVD, HLD, sleep apnea, RLS, colon cancer, DM type 2, hypertension, obstructive bilateral nephrolithiasis with stents, recent NSTEMI, with heart stents x2 (plavix/ASA), gouty arthritis and trophi gout who presented to the ED today with progressive worsening weakness secondary to his Charcot Yolande tooth disease/deconditioning, resulting in a ground level fall last night and early this morning resulting in right chest contusion and right eye contusion. Most recently he is status post cystoscopy/right ureteroscopic laser lithotripsy/and right ureteral stent exchange on 04/15/2022.? On 04/17/2022, was found unresponsive and on the floor after a reclined bicycle ride.? He was found to have Enterobacter urosepsis and myocardial infarction.?Hospital discharge 04/18/2022 Per MAGNETO SPECIALIST Morillo:Shantanu Underwood is admitted to the intensive care unit intubated with septic and cardiogenic shock likely due to a urinary tract infection status post lithotripsy POD #2., NSTEMI, acute hypoxemic respiratory failure, anemia of chronic disease and diabetes type 2. Due to acuity of his illness and need for multi specialty care he was transferred to [facility].? Where the patient reports he had a heart catheterization with 2 heart stents placed. He since went to rehab facility for 2 weeks and he has been home for about a week.? He continues to ride his recumbent bicycle.? Today he presents following 2 ground level falls.? He uses his walker but felt like his shoulders and arms gave out.? He fell hitting the right side of his face.? He is on aspirin and Plavix.? Patient describes right-sided chest discomfort without radiation, induced with movement or deep breathing, denies diaphoresis, does have mild shortness of breath, on 2 L O2 nasal cannula. No loss of consciousness, CORRALES, changes in vision, fever, body aches, chills, abdominal pain, nausea, vomiting, changes in bowels, melena, dysuria, frequency, urgency, retention, hematuria, no recent changes to medication had been taking Cipro p.o. daily. from DR. Cowan. The patient reported to Dr. Cowan on 05/21/2022 continued worsening weakness, decreased energy level have impacted significantly following his illnesses.?He has had home health and PT.? He had not yet scheduled referral and consultation with Nephrology. He was seen by Dr. Cowan on 05/21/2002 for cystoscopy/right ureteral stent removal.? In the ED department patient developed cardiogenic septic shock with hypotension-started on Levophed, with sepsis fluid bundle found to be retaining urine-Spear placed, positive UTI Rocephin given, and was mildly short of breath-placed on 2 L nasal cannula. Vitals at the time of admit temp 97.4?, BP 100/59 on 8 mcg of Levophed, HR 61, RR 19, O2 saturation 97% on 2 L nasal cannula. Patient is stable and in no distress at this time. ABGs: HC03 15.4, T CO2 17, base excess -13. Hemoglobin 9.4, hematocrit 28.4, platelets 148-H&H is slightly decreased from 04/18/2022 labs. Patient is hyperkalemic with CALIXTO initial potassium 6.1, bicarb 13, BUN 83, creatinine 4.42, blood sugar 72, GFR 13. Calcium 7.2. Repeat labs potassium 5.6, creatinine 3.63, GFR 16, calcium 8.1, -corrected calcium 7.36. Urinalysis positive for nitrates, blood, bacteria, RBC, WBC-urine culture pending. Blood cultures x2 pending. Dimer 1535, chest CT of abdomen pelvis negative for PE. Troponins negative x2, BNP 1950, lactate, procalcitonin, lipase and COVID all WNL. EKG NSR with a rate of [address] changes, T-wave inversion no change from previous EKGs and no prolonged QT interval. Patient had multiple imaging chest x-ray chronic elevation of left hemidiaphragm with left bibasilar atelectasis, and right central line placement, chest CT bibasilar bronchial wall thickening and patchy bibasilar atelectasis, coronary artery stent, bilateral lower extremity venous ultrasound negative for DVT, renal ultrasound normal kidneys, without hydronephrosis, nonobstructing right renal calculi, C-spine CT: no fractures, head CT negative for any intracranial hemorrhages, right periorbital soft tissue swelling without associated regional fracture, face CT negative for fracture noted right periorbital soft tissue swelling, abdomen pelvis CT noted enlarged prostate, with diffuse bladder wall thickening suggestive of bladder outlet obstruction, bilateral nephrolithiasis. Patient admitted for sepsis with septic shock, respiratory, renal, and cardiogenic, acute respiratory failure with hypoxia due to possible CHF exacerbation with chronic left diaphragmatic paralysis, CALIXTO secondary to UTI and urinary retention resulting in hyperkalemia following right ureteral stent removal within the past 24 hours and enlarged prostate, and GLF resulting in right chest wall contusion and right eye contusion due to muscular deconditioning/weakness secondary to recent critical illness and chronic Charcot Yolande tooth disease. Patient History Medical History (Updated 05/23/22 @ 03:34 by JANETH Timmons-JORDAN) Anticoagulated on heparin Arthritis Bilateral nephrolithiasis Drcrdyo-Brtov-Kpzkm disease Colon cancer Diabetes mellitus treated with oral medication Hernia History of non-ST elevation myocardial infarction (NSTEMI) History of renal calculi Hypertension, essential Mixed hyperlipidemia Peripheral vascular disease of extremity Sleep apnea in adult Surgical History (Updated 05/23/22 @ 03:34 by JANETH Timmons-JORDAN) History of heart artery stent Hx of cystoscopy (10/16/21) Hx of cystoscopy (12/03/21) Hx of cystoscopy (03/25/22) S/P ureteral stent placement Status post colectomy (~1995) Status post vascular bypass Family & Social History Family History Father Ulcer History of blood clots Mother No known problems Social History: household members spouse Prior Living Arrangements House lives independently Yes Safety & Behavioral: Feels Safe in Current Yes Environment Been Physically Hurt or No Threatened By a Person Tobacco & Substance use: Tobacco type cigarettes Smoking Status Former smoker alcohol intake current alcohol intake frequency a few times a month Substance Use Type does not use Meds Home Medications and Allergies Home Medications Medication Instructions Recorded Confirmed Type atenolol 50 mg tablet 50 mg PO DAILY #90 tabs 05/31/21 05/22/22 Rx clopidogrel 75 mg tablet (Plavix) 75 mg PO DAILY #90 tabs 05/31/21 05/22/22 Rx lisinopril 5 mg tablet 5 mg PO DAILY #90 tabs 05/31/21 05/22/22 Rx albuterol sulfate 90 mcg/actuation 1 puff inhalation Q6H PRN 08/30/21 05/22/22 Rx aerosol inhaler (ProAir HFA) shortness of breath or wheezing #8.5 grams metformin 1,000 mg tablet 1,000 mg PO BID #180 tabs 12/10/21 05/22/22 Rx ropinirole 4 mg tablet 8 mg PO BEDTIME #180 tabs 02/18/22 05/22/22 Rx potassium citrate 10 mEq (1,080 10 meq PO TID #270 tabs 03/19/22 05/22/22 Rx mg) tablet,extended release alprazolam 0.5 mg tablet 0.5 mg PO DAILY #1 tab 05/20/22 05/22/22 Rx amiodarone 200 mg tablet 200 mg PO DAILY 05/22/22 05/22/22 History furosemide 20 mg tablet 20 mg PO DAILY 05/22/22 05/22/22 History losartan 50 mg tablet 50 mg PO DAILY 05/22/22 05/22/22 History metoprolol succinate 25 mg 25 mg PO DAILY 05/22/22 05/22/22 History tablet,extended release 24 hr Allergies Allergy/AdvReac Type Severity Reaction Status Date / Time No Known Drug Allergies Allergy Verified 05/21/22 10:51 Review of Systems Review of Systems Narrative: All 12 point systems reviewed with the patient and are negative except otherwise documented. Exam Vital Signs (past 8 hours): - 05/22/22 18:00 05/22/22 18:00 05/22/22 18:10 Temperature Pulse Rate 58 L 58 L Respiratory Rate 21 22 Blood Pressure 104/59 L Pulse Oximetry 93 92 Oxygen Delivery Method Oxygen Flow Rate 05/22/22 18:10 05/22/22 18:20 05/22/22 18:30 Temperature Pulse Rate 60 59 L Respiratory Rate 21 22 Blood Pressure 102/57 L Pulse Oximetry 92 91 Oxygen Delivery Method Oxygen Flow Rate 05/22/22 18:40 05/22/22 18:50 05/22/22 19:00 Temperature Pulse Rate 59 L 58 L 59 L Respiratory Rate 21 16 23 Blood Pressure Pulse Oximetry 92 91 91 Oxygen Delivery Method Oxygen Flow Rate 05/22/22 19:08 05/22/22 19:08 05/22/22 19:15 Temperature Pulse Rate 61 61 Respiratory Rate 22 19 Blood Pressure 100/59 L Pulse Oximetry 97 97 Oxygen Delivery Method Oxygen Flow Rate 05/22/22 19:15 05/22/22 19:20 05/22/22 19:20 Temperature Pulse Rate 61 Respiratory Rate 22 Blood Pressure 122/61 124/58 L Pulse Oximetry 97 Oxygen Delivery Method Oxygen Flow Rate 05/22/22 19:30 05/22/22 19:31 05/22/22 19:31 Temperature Pulse Rate 61 60 Respiratory Rate 22 18 Blood Pressure 114/60 Pulse Oximetry 98 98 Oxygen Delivery Method Oxygen Flow Rate 05/22/22 19:40 05/22/22 19:40 05/22/22 19:51 Temperature Pulse Rate 60 Respiratory Rate 25 H Blood Pressure 127/61 132/61 Pulse Oximetry 99 Oxygen Delivery Method Oxygen Flow Rate 05/22/22 19:51 05/22/22 19:59 05/22/22 20:00 Temperature Pulse Rate 61 60 Respiratory Rate 32 H 25 H Blood Pressure 133/67 Pulse Oximetry 99 98 Oxygen Delivery Method Oxygen Flow Rate 05/22/22 20:00 05/22/22 20:11 05/22/22 20:11 Temperature Pulse Rate 61 65 Respiratory Rate 27 H 36 H Blood Pressure 119/56 L Pulse Oximetry 98 98 Oxygen Delivery Method Oxygen Flow Rate 05/22/22 20:35 05/22/22 20:46 05/22/22 20:46 Temperature 97.2 F L Pulse Rate 67 63 Respiratory Rate 27 H 22 Blood Pressure 112/74 Pulse Oximetry 94 96 Oxygen Delivery Method Oxygen Flow Rate 05/22/22 21:00 05/22/22 21:08 05/22/22 21:08 Temperature Pulse Rate 62 62 Respiratory Rate 20 22 Blood Pressure 106/63 Pulse Oximetry 95 95 Oxygen Delivery Method Oxygen Flow Rate 2 05/22/22 21:16 05/22/22 21:16 05/22/22 21:30 Temperature Pulse Rate 61 61 Respiratory Rate 25 H 21 Blood Pressure 104/64 Pulse Oximetry 96 99 Oxygen Delivery Method Oxygen Flow Rate 05/22/22 21:31 05/22/22 21:31 05/22/22 21:47 Temperature Pulse Rate 61 62 Respiratory Rate 21 23 Blood Pressure 95/52 L Pulse Oximetry 99 97 Oxygen Delivery Method Oxygen Flow Rate 05/22/22 21:47 05/22/22 21:53 05/22/22 21:53 Temperature Pulse Rate 74 Respiratory Rate Blood Pressure 101/54 L 132/74 Pulse Oximetry 99 Oxygen Delivery Method Oxygen Flow Rate 05/22/22 22:00 05/22/22 22:01 05/22/22 22:01 Temperature Pulse Rate 63 63 Respiratory Rate 37 H 30 H Blood Pressure 92/68 Pulse Oximetry 98 99 Oxygen Delivery Method Oxygen Flow Rate 05/22/22 22:20 05/22/22 22:20 05/22/22 22:30 Temperature Pulse Rate 61 Respiratory Rate 30 H Blood Pressure 110/55 L 94/56 L Pulse Oximetry 99 Oxygen Delivery Method Oxygen Flow Rate 05/22/22 22:30 05/22/22 22:46 05/22/22 22:46 Temperature Pulse Rate 59 L 59 L Respiratory Rate 22 23 Blood Pressure 87/48 L Pulse Oximetry 98 99 Oxygen Delivery Method Oxygen Flow Rate 05/22/22 23:00 05/22/22 23:00 05/22/22 21:00 Temperature Pulse Rate 58 L Respiratory Rate 19 Blood Pressure 104/52 L Pulse Oximetry 100 Oxygen Delivery Method Room Air Nasal Cannula Oxygen Flow Rate 05/22/22 23:16 05/22/22 23:16 05/22/22 23:30 Temperature Pulse Rate 58 L 59 L Respiratory Rate 21 29 H Blood Pressure 99/53 L Pulse Oximetry 100 96 Oxygen Delivery Method Oxygen Flow Rate 05/22/22 23:36 05/22/22 23:36 05/22/22 23:45 Temperature Pulse Rate 59 L 60 Respiratory Rate 23 42 H Blood Pressure 124/59 L Pulse Oximetry 98 96 Oxygen Delivery Method Oxygen Flow Rate 05/22/22 23:45 05/23/22 00:00 05/23/22 00:18 Temperature Pulse Rate 58 L 59 L Respiratory Rate 20 36 H Blood Pressure 117/74 Pulse Oximetry 94 95 Oxygen Delivery Method Oxygen Flow Rate 05/23/22 00:18 05/23/22 00:26 05/23/22 00:26 Temperature Pulse Rate 60 Respiratory Rate 25 H Blood Pressure 97/52 L 107/56 L Pulse Oximetry 96 Oxygen Delivery Method Oxygen Flow Rate 05/23/22 00:00 05/23/22 00:30 05/23/22 00:37 Temperature Pulse Rate 60 59 L Respiratory Rate 20 26 H Blood Pressure Pulse Oximetry 93 92 Oxygen Delivery Method Room Air Oxygen Flow Rate 05/23/22 00:37 05/23/22 00:39 05/23/22 00:39 Temperature Pulse Rate 61 Respiratory Rate 3 L Blood Pressure 99/55 L 95/52 L Pulse Oximetry 95 Oxygen Delivery Method Oxygen Flow Rate 05/23/22 01:00 05/23/22 01:01 05/23/22 01:01 Temperature Pulse Rate 62 61 Respiratory Rate 31 H 20 Blood Pressure 104/46 L Pulse Oximetry 95 94 Oxygen Delivery Method Oxygen Flow Rate Oxygen Delivery Method Room Air Oxygen Flow Rate 2 Narrative Exam Narrative: General: Patient is a maryam 77 elderly chronically ill appearing male in no distress at this time. HEENT: Normocephalic, extraocular muscles intact, superficial laceration and contusion noted right periorbital and inferior face symmetric, oral pharynx is clear and mucous membranes are dry. Neck is supple and symmetric, trachea is midline, right central line in place, no adenopathy, no thyroid enlargement, nontender, no masses palpated. Negative for JVD Chest: Breathing mildly labored, no nasal flaring, retractions, or tachypnea. Noted tenderness to right chest wall with palpation, deep breathing, and movement. Lungs: Auscultation of all lung booth are clear without adventitious sounds, wheezes, rhonchi, or rales. Cardio: regular rate and rhythm without murmur, rubs, or gallops, no carotid bruit, no cardiac pulsations present. Abdomen: Soft nontender, negative for organomegaly, or masses. Bowel sounds are present in all 4 quadrants without guarding or rebound, no CVA tenderness.No suprapubic tenderness- Spear inplace Musculoskeletal: Muscle weakness, tone are equal, noted muscle wasting, no deformity, crepitus, effusions, cyanosis, clubbing or edema present. Full range of motion intact radial and pedal pulses are normal. Skin: Warm dry, cracking with multiple wounds to upper & lower extremities in various stages of healing, no signs of infection present. Neuro: Alert and orientated x3, sensation to touch intact, no gross deficits noted of cranial nerves. Psych: Patient has a chronically ill appearance, appropriate affect, mental status attitude thought context and judgment are appropriate for age. Objective Labs Result Diagrams: 05/22/22 10:15 05/22/22 22:25 Labs: Laboratory Results - last 24 hr 05/22/22 05/22/22 05/22/22 10:15 10:15 10:15 WBC 5.0 RBC 3.05 L Hgb 9.4 L Hct 28.4 L MCV 93.4 MCH 30.9 MCHC 33.1 RDW 16.5 H Plt Count 148 L Neut % (Auto) 77.9 H Lymph % (Auto) 14.7 L [place] % (Auto) 5.4 Eos % (Auto) 1.4 L Baso % (Auto) 0.6 Neut # (Auto) 3900 Lymph # (Auto) 700 L [place] # (Auto) 300 Eos # (Auto) 100 Baso # (Auto) 0 D-Dimer Sodium 137 Potassium 6.1 H Chloride 106 Carbon Dioxide 13 L BUN 83 H Creatinine 4.42 H Estimated GFR 13 L BUN/Creatinine Ratio 18.8 Glucose 72 L Hemoglobin A1c 5.0 Lactate Calcium 8.1 L Magnesium Total Bilirubin 0.3 AST 19 ALT 25 Alkaline Phosphatase 70 Total Creatine Kinase 97 CK-MB (CK-2) TNP CK-MB (CK-2) Rel Index TNP Troponin I < 0.012 NT-Pro-B Natriuret Pep Total Protein 7.0 Albumin 4.2 Globulin 2.8 Albumin/Globulin Ratio 1.5 Lipase 209 Procalcitonin Urine Color Urine Appearance Urine pH Ur Specific [place] Urine Protein Urine Glucose (UA) Urine Ketones Urine Occult Blood Urine Nitrate Urine Bilirubin Urine Urobilinogen Ur Leukocyte Esterase Urine RBC Urine WBC Amorphous Sediment Urine Bacteria Ur Culture Indicated? Nasal Screen MRSA (PCR) SARS-CoV-2 (PCR) 05/22/22 05/22/22 05/22/22 10:17 10:17 10:40 WBC RBC Hgb Hct MCV MCH MCHC RDW Plt Count Neut % (Auto) Lymph % (Auto) [place] % (Auto) Eos % (Auto) Baso % (Auto) Neut # (Auto) Lymph # (Auto) [place] # (Auto) Eos # (Auto) Baso # (Auto) D-Dimer Sodium Potassium Chloride Carbon Dioxide BUN Creatinine Estimated GFR BUN/Creatinine Ratio Glucose Hemoglobin A1c Lactate 1.4 Calcium Magnesium Total Bilirubin AST ALT Alkaline Phosphatase Total Creatine Kinase CK-MB (CK-2) CK-MB (CK-2) Rel Index Troponin I NT-Pro-B Natriuret Pep 1950 H Total Protein Albumin Globulin Albumin/Globulin Ratio Lipase Procalcitonin 0.15 Urine Color Urine Appearance Urine pH Ur Specific [place] Urine Protein Urine Glucose (UA) Urine Ketones Urine Occult Blood Urine Nitrate Urine Bilirubin Urine Urobilinogen Ur Leukocyte Esterase Urine RBC Urine WBC Amorphous Sediment Urine Bacteria Ur Culture Indicated? Nasal Screen MRSA (PCR) SARS-CoV-2 (PCR) 05/22/22 05/22/22 05/22/22 10:40 12:35 13:00 WBC RBC Hgb Hct MCV MCH MCHC RDW Plt Count Neut % (Auto) Lymph % (Auto) [place] % (Auto) Eos % (Auto) Baso % (Auto) Neut # (Auto) Lymph # (Auto) [place] # (Auto) Eos # (Auto) Baso # (Auto) D-Dimer 1535 H Sodium Potassium Chloride Carbon Dioxide BUN Creatinine Estimated GFR BUN/Creatinine Ratio Glucose Hemoglobin A1c Lactate Calcium Magnesium Total Bilirubin AST ALT Alkaline Phosphatase Total Creatine Kinase CK-MB (CK-2) CK-MB (CK-2) Rel Index Troponin I NT-Pro-B Natriuret Pep Total Protein Albumin Globulin Albumin/Globulin Ratio Lipase Procalcitonin Urine Color [place] Urine Appearance Sl cloudy Urine pH 5.0 Ur Specific [place] 1.020 Urine Protein 2+ H Urine Glucose (UA) Trace H Urine Ketones Negative Urine Occult Blood 3+ H Urine Nitrate Positive H Urine Bilirubin Negative Urine Urobilinogen 1.0 Ur Leukocyte Esterase 1+ H Urine RBC >100/hpf H Urine WBC 5-10/hpf H Amorphous Sediment 1+ Urine Bacteria Few (2-10) H Ur Culture Indicated? Specimen cultured Nasal Screen MRSA (PCR) SARS-CoV-2 (PCR) Negative 05/22/22 05/22/22 05/22/22 16:18 16:18 16:18 WBC RBC Hgb Hct MCV MCH MCHC RDW Plt Count Neut % (Auto) Lymph % (Auto) [place] % (Auto) Eos % (Auto) Baso % (Auto) Neut # (Auto) Lymph # (Auto) [place] # (Auto) Eos # (Auto) Baso # (Auto) D-Dimer Sodium 139 Potassium 5.6 H Chloride 110 H Carbon Dioxide 13 L BUN 77 H Creatinine 3.63 H Estimated GFR 16 L BUN/Creatinine Ratio 21.2 Glucose 93 Hemoglobin A1c Lactate 0.8 Calcium 7.2 L Magnesium Total Bilirubin AST ALT Alkaline Phosphatase Total Creatine Kinase CK-MB (CK-2) CK-MB (CK-2) Rel Index Troponin I < 0.012 NT-Pro-B Natriuret Pep Total Protein Albumin Globulin Albumin/Globulin Ratio Lipase Procalcitonin Urine Color Urine Appearance Urine pH Ur Specific [place] Urine Protein Urine Glucose (UA) Urine Ketones Urine Occult Blood Urine Nitrate Urine Bilirubin Urine Urobilinogen Ur Leukocyte Esterase Urine RBC Urine WBC Amorphous Sediment Urine Bacteria Ur Culture Indicated? Nasal Screen MRSA (PCR) SARS-CoV-2 (PCR) 05/22/22 05/22/22 20:50 22:25 WBC RBC Hgb Hct MCV MCH MCHC RDW Plt Count Neut % (Auto) Lymph % (Auto) [place] % (Auto) Eos % (Auto) Baso % (Auto) Neut # (Auto) Lymph # (Auto) [place] # (Auto) Eos # (Auto) Baso # (Auto) D-Dimer Sodium 138 Potassium 5.2 H Chloride 109 H Carbon Dioxide 16 L BUN 71 H Creatinine 3.21 H Estimated GFR 19 L BUN/Creatinine Ratio 22.1 H Glucose 140 H Hemoglobin A1c Lactate Calcium 6.9 L Magnesium 1.3 L Total Bilirubin 0.1 L AST 19 ALT 23 Alkaline Phosphatase 60 Total Creatine Kinase CK-MB (CK-2) CK-MB (CK-2) Rel Index Troponin I < 0.012 NT-Pro-B Natriuret Pep Total Protein 6.0 L Albumin 3.6 Globulin 2.4 Albumin/Globulin Ratio 1.5 Lipase Procalcitonin Urine Color Urine Appearance Urine pH Ur Specific [place] Urine Protein Urine Glucose (UA) Urine Ketones Urine Occult Blood Urine Nitrate Urine Bilirubin Urine Urobilinogen Ur Leukocyte Esterase Urine RBC Urine WBC Amorphous Sediment Urine Bacteria Ur Culture Indicated? Nasal Screen MRSA (PCR) Negative for mrsa SARS-CoV-2 (PCR) Assessment & Plan Assessment & Plan narrative: Shantanu Underwood is a 69-year-old male history of Trqkvjp-Cwwgn-Zssuf dz with related chronic muscular deconditioning/weakness, chronic left diaphragmatic paralysis, PVD, HLD, sleep apnea, RLS, colon cancer, DM type 2, hypertension, obstructive bilateral nephrolithiasis with stents, recent NSTEMI, with heart stents x2 (plavix/ASA), gouty arthritis and trophi gout who presented to the ED today with progressive worsening weakness secondary to his Charcot Yolande tooth disease/deconditioning, resulting in a ground level fall last night and early this morning resulting in right chest contusion and right eye contusion. This patient requires critical care inpatient hospital management for acute respiratory failure, sepsis with septic shock, CALIXTO, urinary retention, and hyperkalemia, after failing outpatient management. And recent hospitalization for status post cystoscopy/right ureteroscopic laser lithotripsy/and right ureteral stent exchange on 04/15/2022.? On 04/17/2022, was found unresponsive and on the floor after a reclined bicycle ride.? He was found to have Enterobacter urosepsis and myocardial infarction.?Hospital discharge 04/18/2022 Per MAGNETO SPECIALIST Ilia:Shantanu Underwood is admitted to the intensive care unit intubated with septic and cardiogenic shock likely due to a urinary tract infection status post lithotripsy POD #2., NSTEMI, acute hypoxemic respiratory failure, anemia of chronic disease and diabetes type 2. Due to acuity of his illness and need for multi specialty care he was transferred to [facility].? Where the patient reports he had a heart catheterization with 2 heart stents placed. Requesting records. Placing the patient at much higher risk for medical and surgical complications, increased difficulty and complexity of medical and surgical interventions, with an increased chance of poor outcomes such as morbidity and mortality. The patient's Kyzibwe-Cgedw-Tnpqq dz with related chronic muscular deconditioning/weakness, chronic left diaphragmatic paralysis, recent NSTEMI, with heart stents x2, and likely new Dx of CHF exacerbation will impact his oxygenation, impairing his recovery from serious illness. To this end patient required intubation on prior hospitalization 04/17/2022. 1. Sepsis with septic shock (renal, respiratory, cardiogenic), secondary to UTI, acute, present on admission -sofa score: 8, initial hypotensive blood pressures in ED 80/62, 87/46, 74/39, tachypneic respiratory rates 25-31, O2 saturations reported below 90% on room air. -in ED patient was placed on 2 L nasal cannula, sepsis fluid bundle provided, Rocephin, patient is started on Levophed drip. -admit temp 97.4?, BP 100/59 on 8 mcg of Levophed, HR 61, RR 19, O2 saturation 93% on 2 L nasal cannula. -this was a critical care admit taking greater than 30 minutes, I personally reviewed chart notes from Internal Medicine Dr. Glynn, Dr. Cowan urology, previous hospitalizations laboratory diagnostics and imaging. -ABGs: HC03 15.4, T CO2 17, base excess -13. -WBC, lactate, procalcitonin, lipase, MRSA, and COVID all WNL. -abdomen pelvis CT noted enlarged prostate, with diffuse bladder wall thickening suggestive of bladder outlet obstruction, bilateral nephrolithiasis -Urinalysis positive for nitrates, blood, bacteria, RBC, WBC-urine culture pending. Blood cultures x2 pending. -patient continues on Levophed drip, central line placed -patient placed on cefepime and vancomycin based on history of Enterococcus, Proteus on previous urine cultures -additional 1000 cc bolus NS given -monitor for acute respiratory distress, pneumothorax -ICU admit per sepsis protocol -tele senior benefits analyst consult 2. CALIXTO secondary to UTI, status post renal stent removal within the past 24 hours, complicated by urinary retention, and enlarged prostate, resulting in hyperkalemia, acute on chronic, in the setting of obstructive bilateral nephrolithiasis with multiple stents, acute on chronic present on admission - status post cystoscopy/right ureteroscopic laser lithotripsy/and right ureteral stent exchange on 04/15/2022.? 04/17/2022 admit for sepsis with septic shock, acute resp failure with Enterobacter urosepsis and myocardial infarction, 05/21/2022 right ureteral stent removal by Dr. Cowan. - initial potassium 6.1, bicarb 13, BUN 83, creatinine 4.42, blood sugar 72, GFR 13. Calcium 7.2. Repeat labs potassium 5.6, creatinine 3.63, GFR 16, calcium 8.1, -corrected calcium 7.36. Labs from 04/18/2022 BUN 21, creatinine 1.34, GFR 55. -Renal ultrasound normal kidneys, without hydronephrosis, nonobstructing right renal calculi -Abdomen pelvis CT noted enlarged prostate, with diffuse bladder wall thickening suggestive of bladder outlet obstruction, bilateral nephrolithiasis. -ABGs: HC03 15.4, T CO2 17, base excess -13. - abdomen pelvis CT noted enlarged prostate, with diffuse bladder wall thickening suggestive of bladder outlet obstruction, bilateral nephrolithiasis. -sepsis hydration provided in ED, Rocephin initiated -Urinalysis positive for nitrates, blood, bacteria, RBC, WBC-urine culture pending. -patient placed on cefepime and vancomycin based on history of Enterococcus, Proteus on previous urine cultures -Spear placed, strict I&O, provider to be notified if urinary output< 50 cc/HR -initial potassium 6.1, repeat 5.6-Lokelma ordered-holding patient's oral potassium -calcium 8.1, -corrected calcium 7.36. -monitor for tetany, prolonged QT, seizures, muscle spasticity, pneumothorax-will treat if worsening or patient becomes symptomatic. -trend renal labs, ordered Mag. -urology consult placed Dr. Magallanes -patient needs nephrology consult for chronic medical/metabolic management for recurrent uric acid.-Dr. Cowan had noted and output goal of 2.5 L per day -due to the concern of elevated BNP CHF exacerbation resulting in need for diuresis that amount of fluid intake may not be possible. Patient may require Lasix drip to ensure hydration for the kidneys while diuresing for CHF. Will make determination based on cardiology/echo results from [facility]-have requested through coordinator unable to obtain tonight. -patient may need Infectious Disease Dr. Radha Gomez consult [facility] 3. Acute respiratory failure, secondary to sepsis, acute, exacerbated by Euhvqgb-Jluai-Sudzn dz with related chronic muscular deconditioning/weakness, chronic left diaphragmatic paralysis, recent NSTEMI, with heart stents x2, and likely new Dx of CHF exacerbation, by elevated BNP present on admission - tachypneic respiratory rates 25-31, O2 saturations reported below 90% on room air in ED. -admit temp 97.4?, BP 100/59 on 8 mcg of Levophed, HR 61, RR 19, O2 saturation 93% on 2 L nasal cannula. -chest x-ray chronic elevation of left hemidiaphragm with left bibasilar atelectasis, and right central line placement. -Chest CT bibasilar bronchial wall thickening and patchy bibasilar atelectasis, coronary artery stent, -Bilateral lower extremity venous ultrasound negative for DVT. -continue albuterol 4. Ground level fall resulting in right chest wall and right eye contusion, secondary to both acute and chronic illness and Fpyoppu-Vmcgl-Hhnvu dz with related chronic muscular deconditioning/weakness, acute on chronic, on chronic Plavix, present on admission. -Monitor for bleeding. - C-spine CT: no fractures -Head CT negative for any intracranial hemorrhages, right periorbital soft tissue swelling without associated regional fracture -Face CT negative for fracture noted right periorbital soft tissue swelling -Abdomen pelvis CT no fractures noted. -pain management -PT/OT consult -Ortho Consult Dr. Armijo placed for generalized evaluation- due to repeated falls and risk for fractures not immediately observed on initial imaging. -recommend post hospitalization SNF placement and [facility] consult for in-home evaluation for safety/falls and community support. -recommend follow-up with PCP for bone density testing. 5. Recent NSTEMI(04/17/2022) with coronary artery stent placement x2, in the setting of elevated BNP-likely CHF exacerbation, essential hypertension, acute, present on admission -Dimer 1535, chest CT of abdomen pelvis negative for PE -Troponins negative x2, BNP 1950 -EKG NSR with a rate of [address] changes, T-wave inversion no change from previous EKGs and no prolonged QT interval. -chief nursing officer request for records [facility] for recent echo cardiac catheterization and heart stent placement x2 (within the last month) -gentle diuresis Lasix 20 mg IV b.i.d.-again due to severe [place] may consider Lasix drip in conjunction with gentle rehydration. -due to hypotensive cardiogenic shock holding oral Lasix, lisinopril, losartan, metoprolol, amiodarone, atenolol -continue patient's Plavix, ASA -heparin b.i.d. -will trend troponin, patient placed on telemedicine -continue on Levophed drip. 6. Anemia, likely secondary to chronic illness, acute on chronic, present on admission -patient did experience multiple ground level falls and is on chronic Plavix -initial H&H 9.4/28.4 platelets 148-04/18/2022 10.7/32.6 platelets 134 patient is slightly below lift baseline most likely represents dilutional secondary to sepsis bolus hydration. -will continue to trend H&H and monitor for bleeding. 7. Restless leg syndrome, chronic, present on admission -continue Requip 8. Hyperlipidemia, mixed, chronic, secondary to type 2 diabetes, chronic, present on admission -A1c 5.0% on admission today, previous A1c 6.6 04/18/2022 -based on current up-to-date guidelines regarding A1c in the elderly patient's A1c allowed up to 7.5 without medication management-to avoid hypoglycemia in the elderly and related risks and complications. On last admit patient had been initiated on Lantus in addition to metformin resulting in an A1c of 5.0 today. -I am stopping all diabetic medications- patient follow-up with PCP or Nephrology in 3 months for A1c repeat and re-evaluation. -patient admitted under diabetic protocols, monitor for hypoglycemia/hyperglycemia, low-dose sliding scale in place if needed -continue lisinopril for renal/cardiovascular protective Code status:Full Surrogate decision maker: Jayla [place] ROGER PCR:Negative DVT/VTE prophylaxis: Heparin and SCDs Disposition: Patient is admitted to the ICU for management respiratory and blood pressure support, fluid/ renal sepsis hydration, treatment with antibiotics, mild diuresis for possible CHF, monitor for bleeding secondary to chronic anticoagulation in the setting of multiple falls. This was a critical care admit requiring greater than 30 minutes. I have utilized all available immediate resources to obtain, update, or review the patient's current medications. I confirmed that the patient's advanced care plan is present, Code status is documented and/or surrogate decision maker is listed in the patient's medical record. Time Spent With Patient Critical Care time: I spent a total of [] minutes of critical care time on this patient's care today; this time is exclusive of procedural time. Quality VTE Deep Vein Thrombosis/Pulmonary Embolism Present on Admission: No
[2022-05-23] MEDS: MAGNESIUM SULFATE 2 GM/50 ML PIGGYBACK IV (01:55)
--- NOTE | 2022-05-23 02:04 | PC.NURSE ---
Addendum entered by Nay Valencia R.N. 05/23/22 06:35: Levophed continues, currently at 7mcg/min, BP 109/60(75) see trends. SpO2 >97% on RA. PO Dilaudid effective for rib pain. Total UOP 2075ml. Mg+ sulfate 2mg complete. Original Note: Admit Note-Patient brought to ICU room 230 at 2030. A/Ox4, little delay with speech but able to communicate needs and is a good historian. Levophed gtt at 4-5mcg/min, see vital trends for BP, HR 60, RR 20s shallow r/t rib pain while moving, LS CTA, on 2L NC SpO2 98%. Cefepime, Vancomycin, IV Lasix given. PO Dilaudid given for rib pain. Multiple bruises and abrasions throughout body r/t frequent falls. Spear catheter patent with cloudy nicole urine and small sediment.
[2022-05-23] MEDS: SODIUM CHLORIDE 0.9% 500 ML 60 ML IV (04:49)
[2022-05-23 05:41] LABS: Add Manual Diff / Slide Review YES; Hematocrit 27.4 % (41-53); Mean Corpuscular HGB Conc 32.9 % (30-36); Mean Corpuscular Hemoglobin 30.5 PG (26-34); Mean Corpuscular Volume 92.7 fL (80-100); Platelet Count 172 X10^3/uL (150-400); Red Blood Cell Count 2.95 X10^6/uL (4.5-5.9); Red Cell Distribution Width 16.6 % (11.6-14.8); White Blood Cell Count 4.9 X10^3/uL (4.5-11.0)
[2022-05-23 05:50] LABS: BUN Creatinine Ratio 20.2 (6-22); Blood Urea Nitrogen 64 mg/dL (9-20); Calcium 7.2 mg/dL (8.4-10.2); Carbon Dioxide 13 mmol/L (22-32); Chloride 108 mmol/L (98-107); Estimated Glomerular Filt Rate 19 mL/min (>60); Glucose 125 mg/dL (80-110); HEMOLYSIS < 15 (0-50); Sodium 138 mmol/L (137-145)
[2022-05-23 08:14] LABS: Neutrophils Absolute Manual 3430 /uL (3000-5900); Total Cells Counted 100
--- NOTE | 2022-05-23 08:14 | PM.PN.1 ---
Subjective Subjective Date Patient Seen: 05/23/22 Time Patient Seen: 14:00 Interval history: Patient lying and bed with at bedside. He says he continues to feel very weak. He is worried about his kidneys and if he won't be able to pee again once the sequeira is out. Exam Vital Signs (past 8 hours): - 05/23/22 00:18 05/23/22 00:18 05/23/22 00:26 Temperature Pulse Rate 59 L 60 Respiratory Rate 36 H 25 H Blood Pressure 97/52 L Pulse Oximetry 95 96 Oxygen Delivery Method Oxygen Flow Rate 05/23/22 00:26 05/23/22 00:30 05/23/22 00:37 Temperature Pulse Rate 60 59 L Respiratory Rate 20 26 H Blood Pressure 107/56 L Pulse Oximetry 93 92 Oxygen Delivery Method Oxygen Flow Rate 05/23/22 00:37 05/23/22 00:39 05/23/22 00:39 Temperature Pulse Rate 61 Respiratory Rate 3 L Blood Pressure 99/55 L 95/52 L Pulse Oximetry 95 Oxygen Delivery Method Oxygen Flow Rate 05/23/22 01:00 05/23/22 01:01 05/23/22 01:01 Temperature Pulse Rate 62 61 Respiratory Rate 31 H 20 Blood Pressure 104/46 L Pulse Oximetry 95 94 Oxygen Delivery Method Oxygen Flow Rate 05/23/22 01:30 05/23/22 01:31 05/23/22 01:31 Temperature Pulse Rate 59 L 59 L Respiratory Rate 18 17 Blood Pressure 65/40 L Pulse Oximetry 92 92 Oxygen Delivery Method Oxygen Flow Rate 05/23/22 01:35 05/23/22 01:35 05/23/22 02:00 Temperature Pulse Rate 60 59 L Respiratory Rate 21 19 Blood Pressure 71/51 L Pulse Oximetry 93 93 Oxygen Delivery Method Oxygen Flow Rate 05/23/22 02:01 05/23/22 02:01 05/23/22 02:19 Temperature Pulse Rate 60 Respiratory Rate 19 Blood Pressure 89/53 L 87/52 L Pulse Oximetry 93 Oxygen Delivery Method Oxygen Flow Rate 05/23/22 02:19 05/23/22 02:30 05/23/22 02:33 Temperature Pulse Rate 60 59 L 59 L Respiratory Rate 22 26 H 21 Blood Pressure Pulse Oximetry 94 94 94 Oxygen Delivery Method Oxygen Flow Rate 05/23/22 02:33 05/23/22 02:46 05/23/22 02:46 Temperature Pulse Rate 58 L Respiratory Rate 22 Blood Pressure 90/54 L 96/60 Pulse Oximetry 96 Oxygen Delivery Method Oxygen Flow Rate 05/23/22 03:00 05/23/22 03:00 05/23/22 03:15 Temperature Pulse Rate 59 L 61 Respiratory Rate 22 24 Blood Pressure 99/57 L Pulse Oximetry 93 94 Oxygen Delivery Method Oxygen Flow Rate 05/23/22 03:15 05/23/22 03:30 05/23/22 03:31 Temperature Pulse Rate 59 L 59 L Respiratory Rate 22 22 Blood Pressure 116/66 Pulse Oximetry 93 93 Oxygen Delivery Method Oxygen Flow Rate 05/23/22 03:31 05/23/22 03:45 05/23/22 03:45 Temperature Pulse Rate 59 L Respiratory Rate 21 Blood Pressure 93/51 L 100/57 L Pulse Oximetry 94 Oxygen Delivery Method Oxygen Flow Rate 05/23/22 04:00 05/23/22 04:00 05/23/22 04:15 Temperature 97.7 F Pulse Rate 59 L Respiratory Rate 20 Blood Pressure 96/54 L 101/57 L Pulse Oximetry 93 Oxygen Delivery Method Oxygen Flow Rate 2 05/23/22 04:15 05/23/22 04:30 05/23/22 04:31 Temperature Pulse Rate 60 61 61 Respiratory Rate 19 24 23 Blood Pressure Pulse Oximetry 93 95 95 Oxygen Delivery Method Oxygen Flow Rate 05/23/22 04:31 05/23/22 04:45 05/23/22 04:45 Temperature Pulse Rate 59 L Respiratory Rate 21 Blood Pressure 97/54 L 114/58 L Pulse Oximetry 95 Oxygen Delivery Method Oxygen Flow Rate 05/23/22 05:00 05/23/22 05:01 05/23/22 05:01 Temperature Pulse Rate 61 60 Respiratory Rate 21 21 Blood Pressure 105/55 L Pulse Oximetry 96 97 Oxygen Delivery Method Oxygen Flow Rate 05/23/22 05:15 05/23/22 05:15 05/23/22 05:30 Temperature Pulse Rate 59 L 61 Respiratory Rate 18 18 Blood Pressure 112/56 L Pulse Oximetry 95 92 Oxygen Delivery Method Oxygen Flow Rate 05/23/22 05:00 05/23/22 05:31 05/23/22 05:31 Temperature Pulse Rate 59 L Respiratory Rate 39 H Blood Pressure 119/59 L Pulse Oximetry 93 Oxygen Delivery Method Room Air Oxygen Flow Rate 05/23/22 06:00 05/23/22 06:01 05/23/22 06:01 Temperature Pulse Rate 59 L 59 L Respiratory Rate 36 H 29 H Blood Pressure 113/57 L Pulse Oximetry 92 92 Oxygen Delivery Method Oxygen Flow Rate 05/23/22 07:00 05/23/22 06:30 05/23/22 06:30 Temperature Pulse Rate 60 60 Respiratory Rate 22 40 H Blood Pressure 106/56 L 109/60 Pulse Oximetry 93 92 Oxygen Delivery Method Oxygen Flow Rate 05/23/22 07:00 05/23/22 07:00 05/23/22 07:30 Temperature Pulse Rate 60 61 Respiratory Rate 22 36 H Blood Pressure 106/56 L Pulse Oximetry 93 93 Oxygen Delivery Method Oxygen Flow Rate 05/23/22 07:31 05/23/22 07:31 Temperature Pulse Rate 61 Respiratory Rate 27 H Blood Pressure 123/63 Pulse Oximetry 92 Oxygen Delivery Method Oxygen Flow Rate Oxygen Delivery Method Room Air Oxygen Flow Rate 2 Narrative Exam Narrative: GEN: no acute distress, elderly man HEENT: moist mucous membranes, PERRL NECK: trachea midline, no JVD, RIJ central line CV: regular rate and rhythm, no murmurs PULM: clear bilaterally ABD: soft, nontender, nondistended, no organomegaly SKIN: multiple bruises on extremities EXT: warm and well perfused with no edema NEURO: awake, alert, oriented, no focal deficits Objective Labs Result Diagrams: 05/23/22 05:25 05/23/22 12:13 Labs: Laboratory Results - last 24 hr 05/22/22 05/22/22 05/22/22 10:15 10:15 10:15 WBC 5.0 RBC 3.05 L Hgb 9.4 L Hct 28.4 L MCV 93.4 MCH 30.9 MCHC 33.1 RDW 16.5 H Plt Count 148 L Neut % (Auto) 77.9 H Lymph % (Auto) 14.7 L Hubbard % (Auto) 5.4 Eos % (Auto) 1.4 L Baso % (Auto) 0.6 Neut # (Auto) 3900 Lymph # (Auto) 700 L Hubbard # (Auto) 300 Eos # (Auto) 100 Baso # (Auto) 0 D-Dimer Sodium 137 Potassium 6.1 H Chloride 106 Carbon Dioxide 13 L BUN 83 H Creatinine 4.42 H Estimated GFR 13 L BUN/Creatinine Ratio 18.8 Glucose 72 L Hemoglobin A1c 5.0 Lactate Calcium 8.1 L Magnesium Total Bilirubin 0.3 AST 19 ALT 25 Alkaline Phosphatase 70 Total Creatine Kinase 97 CK-MB (CK-2) TNP CK-MB (CK-2) Rel Index TNP Troponin I < 0.012 NT-Pro-B Natriuret Pep Total Protein 7.0 Albumin 4.2 Globulin 2.8 Albumin/Globulin Ratio 1.5 Lipase 209 Procalcitonin Urine Color Urine Appearance Urine pH Ur Specific [place] Urine Protein Urine Glucose (UA) Urine Ketones Urine Occult Blood Urine Nitrate Urine Bilirubin Urine Urobilinogen Ur Leukocyte Esterase Urine RBC Urine WBC Amorphous Sediment Urine Bacteria Ur Culture Indicated? Nasal Screen MRSA (PCR) SARS-CoV-2 (PCR) 05/22/22 05/22/22 05/22/22 10:17 10:17 10:40 WBC RBC Hgb Hct MCV MCH MCHC RDW Plt Count Neut % (Auto) Lymph % (Auto) Hubbard % (Auto) Eos % (Auto) Baso % (Auto) Neut # (Auto) Lymph # (Auto) Hubbard # (Auto) Eos # (Auto) Baso # (Auto) D-Dimer Sodium Potassium Chloride Carbon Dioxide BUN Creatinine Estimated GFR BUN/Creatinine Ratio Glucose Hemoglobin A1c Lactate 1.4 Calcium Magnesium Total Bilirubin AST ALT Alkaline Phosphatase Total Creatine Kinase CK-MB (CK-2) CK-MB (CK-2) Rel Index Troponin I NT-Pro-B Natriuret Pep 1950 H Total Protein Albumin Globulin Albumin/Globulin Ratio Lipase Procalcitonin 0.15 Urine Color Urine Appearance Urine pH Ur Specific [place] Urine Protein Urine Glucose (UA) Urine Ketones Urine Occult Blood Urine Nitrate Urine Bilirubin Urine Urobilinogen Ur Leukocyte Esterase Urine RBC Urine WBC Amorphous Sediment Urine Bacteria Ur Culture Indicated? Nasal Screen MRSA (PCR) SARS-CoV-2 (PCR) 05/22/22 05/22/22 05/22/22 10:40 12:35 13:00 WBC RBC Hgb Hct MCV MCH MCHC RDW Plt Count Neut % (Auto) Lymph % (Auto) Hubbard % (Auto) Eos % (Auto) Baso % (Auto) Neut # (Auto) Lymph # (Auto) Hubbard # (Auto) Eos # (Auto) Baso # (Auto) D-Dimer 1535 H Sodium Potassium Chloride Carbon Dioxide BUN Creatinine Estimated GFR BUN/Creatinine Ratio Glucose Hemoglobin A1c Lactate Calcium Magnesium Total Bilirubin AST ALT Alkaline Phosphatase Total Creatine Kinase CK-MB (CK-2) CK-MB (CK-2) Rel Index Troponin I NT-Pro-B Natriuret Pep Total Protein Albumin Globulin Albumin/Globulin Ratio Lipase Procalcitonin Urine Color Foley Urine Appearance Sl cloudy Urine pH 5.0 Ur Specific [place] 1.020 Urine Protein 2+ H Urine Glucose (UA) Trace H Urine Ketones Negative Urine Occult Blood 3+ H Urine Nitrate Positive H Urine Bilirubin Negative Urine Urobilinogen 1.0 Ur Leukocyte Esterase 1+ H Urine RBC >100/hpf H Urine WBC 5-10/hpf H Amorphous Sediment 1+ Urine Bacteria Few (2-10) H Ur Culture Indicated? Specimen cultured Nasal Screen MRSA (PCR) SARS-CoV-2 (PCR) Negative 05/22/22 05/22/22 05/22/22 16:18 16:18 16:18 WBC RBC Hgb Hct MCV MCH MCHC RDW Plt Count Neut % (Auto) Lymph % (Auto) Hubbard % (Auto) Eos % (Auto) Baso % (Auto) Neut # (Auto) Lymph # (Auto) Hubbard # (Auto) Eos # (Auto) Baso # (Auto) D-Dimer Sodium 139 Potassium 5.6 H Chloride 110 H Carbon Dioxide 13 L BUN 77 H Creatinine 3.63 H Estimated GFR 16 L BUN/Creatinine Ratio 21.2 Glucose 93 Hemoglobin A1c Lactate 0.8 Calcium 7.2 L Magnesium Total Bilirubin AST ALT Alkaline Phosphatase Total Creatine Kinase CK-MB (CK-2) CK-MB (CK-2) Rel Index Troponin I < 0.012 NT-Pro-B Natriuret Pep Total Protein Albumin Globulin Albumin/Globulin Ratio Lipase Procalcitonin Urine Color Urine Appearance Urine pH Ur Specific [place] Urine Protein Urine Glucose (UA) Urine Ketones Urine Occult Blood Urine Nitrate Urine Bilirubin Urine Urobilinogen Ur Leukocyte Esterase Urine RBC Urine WBC Amorphous Sediment Urine Bacteria Ur Culture Indicated? Nasal Screen MRSA (PCR) SARS-CoV-2 (PCR) 05/22/22 05/22/22 05/23/22 20:50 22:25 05:25 WBC 4.9 RBC 2.95 L Hgb 9.0 L Hct 27.4 L MCV 92.7 MCH 30.5 MCHC 32.9 RDW 16.6 H Plt Count 172 Neut % (Auto) Not Reportable Lymph % (Auto) Not Reportable Hubbard % (Auto) Not Reportable Eos % (Auto) Not Reportable Baso % (Auto) Not Reportable Neut # (Auto) Lymph # (Auto) Not Reportable Hubbard # (Auto) Not Reportable Eos # (Auto) Baso # (Auto) Not Reportable D-Dimer Sodium 138 Potassium 5.2 H Chloride 109 H Carbon Dioxide 16 L BUN 71 H Creatinine 3.21 H Estimated GFR 19 L BUN/Creatinine Ratio 22.1 H Glucose 140 H Hemoglobin A1c Lactate Calcium 6.9 L Magnesium 1.3 L Total Bilirubin 0.1 L AST 19 ALT 23 Alkaline Phosphatase 60 Total Creatine Kinase CK-MB (CK-2) CK-MB (CK-2) Rel Index Troponin I < 0.012 NT-Pro-B Natriuret Pep Total Protein 6.0 L Albumin 3.6 Globulin 2.4 Albumin/Globulin Ratio 1.5 Lipase Procalcitonin Urine Color Urine Appearance Urine pH Ur Specific [place] Urine Protein Urine Glucose (UA) Urine Ketones Urine Occult Blood Urine Nitrate Urine Bilirubin Urine Urobilinogen Ur Leukocyte Esterase Urine RBC Urine WBC Amorphous Sediment Urine Bacteria Ur Culture Indicated? Nasal Screen MRSA (PCR) Negative for mrsa SARS-CoV-2 (PCR) 05/23/22 05:25 WBC RBC Hgb Hct MCV MCH MCHC RDW Plt Count Neut % (Auto) Lymph % (Auto) Hubbard % (Auto) Eos % (Auto) Baso % (Auto) Neut # (Auto) Lymph # (Auto) Hubbard # (Auto) Eos # (Auto) Baso # (Auto) D-Dimer Sodium 138 Potassium 5.0 Chloride 108 H Carbon Dioxide 13 L BUN 64 H Creatinine 3.17 H Estimated GFR 19 L BUN/Creatinine Ratio 20.2 Glucose 125 H Hemoglobin A1c Lactate Calcium 7.2 L Magnesium Total Bilirubin AST ALT Alkaline Phosphatase Total Creatine Kinase CK-MB (CK-2) CK-MB (CK-2) Rel Index Troponin I NT-Pro-B Natriuret Pep Total Protein Albumin Globulin Albumin/Globulin Ratio Lipase Procalcitonin Urine Color Urine Appearance Urine pH Ur Specific [place] Urine Protein Urine Glucose (UA) Urine Ketones Urine Occult Blood Urine Nitrate Urine Bilirubin Urine Urobilinogen Ur Leukocyte Esterase Urine RBC Urine WBC Amorphous Sediment Urine Bacteria Ur Culture Indicated? Nasal Screen MRSA (PCR) SARS-CoV-2 (PCR) [facility] Medical History (Updated 05/23/22 @ 03:34 by JANETH Timmons-) Anticoagulated on heparin Arthritis Bilateral nephrolithiasis Zacyczn-Flxuw-Ljfcz disease Colon cancer Diabetes mellitus treated with oral medication Hernia History of non-ST elevation myocardial infarction (NSTEMI) History of renal calculi Hypertension, essential Mixed hyperlipidemia Peripheral vascular disease of extremity Sleep apnea in adult Surgical History (Updated 05/23/22 @ 03:34 by JANETH Timmons-) History of heart artery stent Hx of cystoscopy (10/16/21) Hx of cystoscopy (12/03/21) Hx of cystoscopy (03/25/22) S/P ureteral stent placement Status post colectomy (~1995) Status post vascular bypass Family History Father Ulcer History of blood clots Mother No known problems Social History marital status: household members: spouse lives independently: Yes occupational status: other Smoking Status: Former smoker alcohol intake: current substance use type: does not use Type(s) of exercise: bicycling frequency: 1-2 times per week Assessment & Plan Assessment & Plan narrative: 1. Sepsis with septic shock (renal, respiratory, cardiogenic), secondary to UTI, acute, present on admission -sofa score: 8, initial hypotensive blood pressures in ED 80/62, 87/46, 74/39, tachypneic respiratory rates 25-31, O2 saturations reported below 90% on room air. -in ED patient was placed on 2 L nasal cannula, sepsis fluid bundle provided, Rocephin, patient is started on Levophed drip. -continue IV abx -f/u cultures -wean levophed as able after boluses 2. CALIXTO secondary to UTI, status post renal stent removal within the past 24 hours, complicated by urinary retention, and enlarged prostate, resulting in hyperkalemia, acute on chronic, in the setting of obstructive bilateral nephrolithiasis with multiple stents, acute on chronic present on admission - status post cystoscopy/right ureteroscopic laser lithotripsy/and right ureteral stent exchange on 04/15/2022.? 04/17/2022 admit for sepsis with septic shock, acute resp failure with Enterobacter urosepsis and myocardial infarction, 05/21/2022 right ureteral stent removal by Dr. Coawn. - initial potassium 6.1, bicarb 13, BUN 83, creatinine 4.42, blood sugar 72, GFR 13. Calcium 7.2. Repeat labs potassium 5.6, creatinine 3.63, GFR 16, calcium 8.1, -corrected calcium 7.36. Labs from 04/18/2022 BUN 21, creatinine 1.34, GFR 55. -Renal ultrasound normal kidneys, without hydronephrosis, nonobstructing right renal calculi -continue sequeira and may need outpatient urology f/u 3. Acute respiratory failure, secondary to sepsis, acute, exacerbated by Duqtnuj-Vvmsm-Txnbc dz with related chronic muscular deconditioning/weakness, chronic left diaphragmatic paralysis, recent NSTEMI, with heart stents x2, and likely new Dx of CHF exacerbation, by elevated BNP present on admission -tachypneic respiratory rates 25-31, O2 saturations reported below 90% on room air in ED. -now on 2L -wean O2 as able 4. Ground level fall resulting in right chest wall and right eye contusion, secondary to both acute and chronic illness and Lsikcop-Jbcil-Lolcr dz with related chronic muscular deconditioning/weakness, acute on chronic, on chronic Plavix, present on admission. -Monitor for bleeding. -C-spine CT: no fractures -Head CT negative for any intracranial hemorrhages, right periorbital soft tissue swelling without associated regional fracture -Face CT negative for fracture noted right periorbital soft tissue swelling -Abdomen pelvis CT no fractures noted. -pain management -PT/OT consult -Ortho Consult Dr. Armijo placed for generalized evaluation- due to repeated falls and risk for fractures not immediately observed on initial imaging. -recommend post hospitalization SNF placement and [employer] consult for in-home evaluation for safety/falls and community support. -recommend follow-up with PCP for bone density testing. 5. Recent NSTEMI (04/17/2022) with coronary artery stent placement x2, in the setting of elevated BNP-likely CHF exacerbation, essential hypertension, acute, present on admission -Dimer 1535, chest CT of abdomen pelvis negative for PE -Troponins negative x2, BNP 1950 -EKG NSR with a rate of [address] changes, T-wave inversion no change from previous EKGs and no prolonged QT interval. -nursing professor request for records [facility] for recent echo cardiac catheterization and heart stent placement x2 (within the last month) -gentle diuresis Lasix 20 mg IV b.i.d.-again due to severe CALIXTO may consider Lasix drip in conjunction with gentle rehydration. -due to hypotensive cardiogenic shock holding oral Lasix, lisinopril, losartan, metoprolol, amiodarone, atenolol -continue patient's Plavix, ASA -heparin b.i.d. -will trend troponin, patient placed on telemedicine -continue on Levophed drip. 6. Anemia, likely secondary to chronic illness, acute on chronic, present on admission -patient did experience multiple ground level falls and is on chronic Plavix -initial H&H 9.4/28.4 platelets 148-04/18/2022 10.7/32.6 platelets 134 patient is slightly below lift baseline most likely represents dilutional secondary to sepsis bolus hydration. -will continue to trend H&H and monitor for bleeding. 7. Restless leg syndrome, chronic, present on admission -continue Requip 8. Hyperlipidemia, mixed, chronic, secondary to type 2 diabetes, chronic, present on admission -A1c 5.0% on admission today, previous A1c 6.6 04/18/2022 -based on current up-to-date guidelines regarding A1c in the elderly patient's A1c allowed up to 7.5 without medication management-to avoid hypoglycemia in the elderly and related risks and complications. On last admit patient had been initiated on Lantus in addition to metformin resulting in an A1c of 5.0 today. -I am stopping all diabetic medications- patient follow-up with PCP or Nephrology in 3 months for A1c repeat and re-evaluation. -patient admitted under diabetic protocols, monitor for hypoglycemia/hyperglycemia, low-dose sliding scale in place if needed -continue lisinopril for renal/cardiovascular protective Code status:Full Surrogate decision maker: Jayla Sal[place]ford COVID PCR:Negative DVT/VTE prophylaxis: Heparin and SCDs Disposition: Patient is admitted to the ICU for management respiratory and blood pressure support, fluid/ renal sepsis hydration, treatment with antibiotics, mild diuresis for possible CHF, monitor for bleeding secondary to chronic anticoagulation in the setting of multiple falls. This was a critical care admit requiring greater than 30 minutes. Time Spent With Patient Critical Care time: I spent a total of [] minutes of critical care time on this patient's care today; this time is exclusive of procedural time. Quality VTE Deep Vein Thrombosis/Pulmonary Embolism Present on Admission: No
[2022-05-23 08:15] LABS: Anisocytosis 1+; Poikilocytosis 1+
[2022-05-23] MEDS: FUROSEMIDE 20 MG/2 ML VIAL IV ×2 (08:20→23:09)
[2022-05-23] MEDS: ASPIRIN EC 81 MG TABLET PO (08:20)
[2022-05-23] MEDS: CLOPIDOGREL 75 MG TABLET PO (08:20)
[2022-05-23] MEDS: HEPARIN 5,000 UNIT/ML VIAL 5000 UNIT SUBCUT ×2 (08:20→20:42)
[2022-05-23] MEDS: ALPRAZolam 0.5 MG TABLET PO (08:20)
[2022-05-23] MEDS: SODIUM ZIRCONIUM CYCLOSILICATE 10 GM POWD.PACK PO (08:21)
[2022-05-23] MEDS: SODIUM CHLORIDE 0.9% FLUSH 10 ML IV ×3 (08:21→23:09)
[2022-05-23] MEDS: LACTATED RINGERS 500 ML 1000 ML IV (10:27)
--- NOTE | 2022-05-23 10:42 | PM.CN.EICU ---
History of Present Illness Consult details IF CAMERA ACTIVATED, patient seen via real-time interactive audiovisual communication: Camera activated Chief complaint: trauma, GLF on thinners Consent obtained for tele-scalp treatment specialist care: Yes Patient Location: ICU Provider location (State): [place] Other participants/roles: Dr. Pisano Narrative: Patient is a 76 year old male with history of DM, PVD, asthma, and kidney stones s/p lithotripsy on 04/15/22 who presents to the ER after falling off of his recumbent bike due to difficulty balancing. He hit his head with minor abrasion on the right side of his eye. EMS called and on arrival to the ER he was hypotensive which he was given 3 liters of crystalloid bolus. He later became hypoxia which he was given lasix 20 mg and placed on BiPAP. CXR showed no obvious dense consolidation. CTH negative for any acute abnormality. CT C spine showed no evidence of fracture. He was tachycardia to the 140s and given adenosine which confirmed sinus tachycardia rather than A fib. UA showed numerous bacteria consistent with UTI. Admitted to ICU for further management. CTH: ?Unremarkable intracranial study for age, without definite acute intracranial hemorrhage. CT C Spine: No evidence of fracture or traumatic malalignment. ? Multilevel degenerative disc disease and arthropathy results in varying degrees of central and foraminal stenosis including moderate central stenosis C5-6 and C6-7 XR R knee: Severe right knee osteoarthritis and moderate knee joint effusion.? Arterial atherosclerosis. ? No acute radiographic findings. If pain persists, followup imaging in 5-7 days is recommended to exclude occult fracture. [facility] Medical History (Updated 05/23/22 @ 03:34 by JARED Timmons) Anticoagulated on heparin Arthritis Bilateral nephrolithiasis Nymwnvk-Azhjp-Vkkte disease Colon cancer Diabetes mellitus treated with oral medication Hernia History of non-ST elevation myocardial infarction (NSTEMI) History of renal calculi Hypertension, essential Mixed hyperlipidemia Peripheral vascular disease of extremity Sleep apnea in adult Surgical History (Updated 05/23/22 @ 03:34 by JARED Timmons) History of heart artery stent Hx of cystoscopy (10/16/21) Hx of cystoscopy (12/03/21) Hx of cystoscopy (03/25/22) S/P ureteral stent placement Status post colectomy (~1995) Status post vascular bypass Family History Father Ulcer History of blood clots Mother No known problems Social History marital status: household members: spouse lives independently: Yes occupational status: other Smoking Status: Former smoker alcohol intake: current substance use type: does not use Type(s) of exercise: bicycling frequency: 1-2 times per week Current Medications Current Medications Medications: Home Medications atenolol 50 mg tablet 50 mg PO DAILY #90 tabs 05/31/21 [Rx Confirmed 05/22/22] clopidogrel 75 mg tablet (Plavix) 75 mg PO DAILY #90 tabs 05/31/21 [Rx Confirmed 05/22/22] lisinopril 5 mg tablet 5 mg PO DAILY #90 tabs 05/31/21 [Rx Confirmed 05/22/22] albuterol sulfate 90 mcg/actuation aerosol inhaler (ProAir HFA) 1 puff inhalation Q6H PRN shortness of breath or wheezing #8.5 grams 08/30/21 [Rx Confirmed 05/22/22] metformin 1,000 mg tablet 1,000 mg PO BID #180 tabs 12/10/21 [Rx Confirmed 05/22/22] ropinirole 4 mg tablet 8 mg PO BEDTIME #180 tabs 02/18/22 [Rx Confirmed 05/22/22] potassium citrate 10 mEq (1,080 mg) tablet,extended release 10 meq PO TID #270 tabs 03/19/22 [Rx Confirmed 05/22/22] alprazolam 0.5 mg tablet 0.5 mg PO DAILY #1 tab 05/20/22 [Rx Confirmed 05/22/22] amiodarone 200 mg tablet 200 mg PO DAILY 05/22/22 [History Confirmed 05/22/22] furosemide 20 mg tablet 20 mg PO DAILY 05/22/22 [History Confirmed 05/22/22] losartan 50 mg tablet 50 mg PO DAILY 05/22/22 [History Confirmed 05/22/22] metoprolol succinate 25 mg tablet,extended release 24 hr 25 mg PO DAILY 05/22/22 [History Confirmed 05/22/22] Visit Medications (administered) Generic Name Dose Route Start Last Admin Trade Name Freq PRN Reason Stop Dose Admin Alprazolam 0.5 mg 05/23/22 09:00 05/23/22 08:20 Alprazolam 0.5 Mg Tablet PO 0.5 mg DAILY MARICARMEN Administration Aspirin 81 mg 05/23/22 09:00 05/23/22 08:20 Aspirin Ec 81 Mg Tablet PO 81 mg DAILY MARICARMEN Administration Atorvastatin Calcium 20 mg 05/22/22 21:00 05/22/22 21:55 Atorvastatin 20 Mg Tablet PO 20 mg BEDTIME MARICARMEN Administration Clopidogrel Bisulfate 75 mg 05/23/22 09:00 05/23/22 08:20 Clopidogrel 75 Mg Tablet PO 75 mg DAILY MARICARMEN Administration Furosemide 20 mg 05/22/22 21:00 05/23/22 08:20 Furosemide 20 Mg/2 Ml Vial IV 20 mg BID MARICARMEN Administration Heparin Sodium (Porcine) 5,000 unit 05/22/22 21:00 05/23/22 08:20 Heparin 5,000 Unit/Ml Vial SUBCUT 5,000 unit BID MARICARMEN Administration Heparin Sodium (Porcine) 50 unit 05/23/22 09:00 05/23/22 08:20 Heparin Flush (Cl/Picc/Mid-Line) 50 Unit/5 Ml Syringe IV 50 unit BID MARICARMEN Administration Hydromorphone HCl 2 mg 05/22/22 21:51 05/22/22 22:10 Hydromorphone 2 Mg Tablet PO 2 mg Q4HR PRN Administration Pain, Severe (7-10) NOREPINEPHRINE BITARTRATE/D5W 4 mg in 250 mls @ 30 mls/hr 05/22/22 14:15 05/23/22 10:07 Levophed IV 7 mcg/min TITRATE MARICARMEN 26.25 mls/hr Titration Protocol 8 MCG/MIN Cefepime HCl 1 gm/ Sodium 100 mls @ 200 mls/hr 05/22/22 19:00 05/22/22 22:07 Chloride IV Infused Q24H MARICARMEN Infusion Vancomycin HCl 1,250 mg in 250 mls @ 250 mls/hr 05/22/22 20:00 05/22/22 23:11 Vancomycin IV Infused Q48H MARICARMEN Infusion Insulin Human Lispro 0 unit 05/22/22 21:00 05/23/22 07:52 Insulin Lispro 100 Unit/Ml 3ml Vial SUBCUT Not Given ACHS MARICARMEN Protocol Melatonin 6 mg 05/22/22 18:13 05/22/22 21:56 Melatonin 3 Mg Tablet PO 6 mg BEDTIME PRN Administration Insomnia Ropinirole HCl 4 mg 05/23/22 00:30 05/23/22 00:17 Ropinirole 1 Mg Tablet PO 4 mg BEDTIME MARICARMEN Administration Sodium Chloride 10 ml 05/23/22 09:00 05/23/22 08:21 Sodium Chloride 0.9% Flush IV 10 ml BID MARICARMEN Administration Exam Vital Signs (past 8 hours): - 05/23/22 02:46 05/23/22 02:46 05/23/22 03:00 Temperature Pulse Rate 58 L Respiratory Rate 22 Blood Pressure 96/60 99/57 L Pulse Oximetry 96 Oxygen Delivery Method Oxygen Flow Rate 05/23/22 03:00 05/23/22 03:15 05/23/22 03:15 Temperature Pulse Rate 59 L 61 Respiratory Rate 22 24 Blood Pressure 116/66 Pulse Oximetry 93 94 Oxygen Delivery Method Oxygen Flow Rate 05/23/22 03:30 05/23/22 03:31 05/23/22 03:31 Temperature Pulse Rate 59 L 59 L Respiratory Rate 22 22 Blood Pressure 93/51 L Pulse Oximetry 93 93 Oxygen Delivery Method Oxygen Flow Rate 05/23/22 03:45 05/23/22 03:45 05/23/22 04:00 Temperature Pulse Rate 59 L Respiratory Rate 21 Blood Pressure 100/57 L 96/54 L Pulse Oximetry 94 Oxygen Delivery Method Oxygen Flow Rate 05/23/22 04:00 05/23/22 04:15 05/23/22 04:15 Temperature 97.7 F Pulse Rate 59 L 60 Respiratory Rate 20 19 Blood Pressure 101/57 L Pulse Oximetry 93 93 Oxygen Delivery Method Oxygen Flow Rate 2 05/23/22 04:30 05/23/22 04:31 05/23/22 04:31 Temperature Pulse Rate 61 61 Respiratory Rate 24 23 Blood Pressure 97/54 L Pulse Oximetry 95 95 Oxygen Delivery Method Oxygen Flow Rate 05/23/22 04:45 05/23/22 04:45 05/23/22 05:00 Temperature Pulse Rate 59 L 61 Respiratory Rate 21 21 Blood Pressure 114/58 L Pulse Oximetry 95 96 Oxygen Delivery Method Oxygen Flow Rate 05/23/22 05:01 05/23/22 05:01 05/23/22 05:15 Temperature Pulse Rate 60 59 L Respiratory Rate 21 18 Blood Pressure 105/55 L Pulse Oximetry 97 95 Oxygen Delivery Method Oxygen Flow Rate 05/23/22 05:15 05/23/22 05:30 05/23/22 05:00 Temperature Pulse Rate 61 Respiratory Rate 18 Blood Pressure 112/56 L Pulse Oximetry 92 Oxygen Delivery Method Room Air Oxygen Flow Rate 05/23/22 05:31 05/23/22 05:31 05/23/22 06:00 Temperature Pulse Rate 59 L 59 L Respiratory Rate 39 H 36 H Blood Pressure 119/59 L Pulse Oximetry 93 92 Oxygen Delivery Method Oxygen Flow Rate 05/23/22 06:01 05/23/22 06:01 05/23/22 07:00 Temperature Pulse Rate 59 L 60 Respiratory Rate 29 H 22 Blood Pressure 113/57 L 106/56 L Pulse Oximetry 92 93 Oxygen Delivery Method Oxygen Flow Rate 05/23/22 06:30 05/23/22 06:30 05/23/22 07:00 Temperature Pulse Rate 60 Respiratory Rate 40 H Blood Pressure 109/60 106/56 L Pulse Oximetry 92 Oxygen Delivery Method Oxygen Flow Rate 05/23/22 07:00 05/23/22 07:30 05/23/22 07:31 Temperature Pulse Rate 60 61 61 Respiratory Rate 22 36 H 27 H Blood Pressure Pulse Oximetry 93 93 92 Oxygen Delivery Method Oxygen Flow Rate 05/23/22 07:31 05/23/22 08:35 05/23/22 09:00 Temperature 97.6 F Pulse Rate 62 Respiratory Rate 18 Blood Pressure 123/63 111/67 Pulse Oximetry 96 Oxygen Delivery Method Room Air Oxygen Flow Rate 0 Oxygen Delivery Method Room Air Oxygen Flow Rate 0 Objective Labs Result Diagrams: 05/23/22 05:25 05/23/22 12:13 Labs: Laboratory Results - last 24 hr 05/22/22 05/22/22 05/22/22 10:15 10:15 10:15 WBC 5.0 RBC 3.05 L Hgb 9.4 L Hct 28.4 L MCV 93.4 MCH 30.9 MCHC 33.1 RDW 16.5 H Plt Count 148 L Neut % (Auto) 77.9 H Lymph % (Auto) 14.7 L [place] % (Auto) 5.4 Eos % (Auto) 1.4 L Baso % (Auto) 0.6 Neut # (Auto) 3900 Lymph # (Auto) 700 L [place] # (Auto) 300 Eos # (Auto) 100 Baso # (Auto) 0 Total Counted Seg Neutrophils % Band Neutrophils % Lymphocytes % (Manual) Monocytes % (Manual) Eosinophils % (Manual) Basophils % (Manual) Myelocytes % Neutrophils # (Manual) RBC Morphology Poikilocytosis Anisocytosis D-Dimer Sodium 137 Potassium 6.1 H Chloride 106 Carbon Dioxide 13 L BUN 83 H Creatinine 4.42 H Estimated GFR 13 L BUN/Creatinine Ratio 18.8 Glucose 72 L Hemoglobin A1c 5.0 Lactate Calcium 8.1 L Magnesium Total Bilirubin 0.3 AST 19 ALT 25 Alkaline Phosphatase 70 Total Creatine Kinase 97 CK-MB (CK-2) TNP CK-MB (CK-2) Rel Index TNP Troponin I < 0.012 NT-Pro-B Natriuret Pep Total Protein 7.0 Albumin 4.2 Globulin 2.8 Albumin/Globulin Ratio 1.5 Lipase 209 Procalcitonin Urine Color Urine Appearance Urine pH Ur Specific [place] Urine Protein Urine Glucose (UA) Urine Ketones Urine Occult Blood Urine Nitrate Urine Bilirubin Urine Urobilinogen Ur Leukocyte Esterase Urine RBC Urine WBC Amorphous Sediment Urine Bacteria Ur Culture Indicated? Nasal Screen MRSA (PCR) SARS-CoV-2 (PCR) 05/22/22 05/22/22 05/22/22 10:17 10:17 10:40 WBC RBC Hgb Hct MCV MCH MCHC RDW Plt Count Neut % (Auto) Lymph % (Auto) [place] % (Auto) Eos % (Auto) Baso % (Auto) Neut # (Auto) Lymph # (Auto) [place] # (Auto) Eos # (Auto) Baso # (Auto) Total Counted Seg Neutrophils % Band Neutrophils % Lymphocytes % (Manual) Monocytes % (Manual) Eosinophils % (Manual) Basophils % (Manual) Myelocytes % Neutrophils # (Manual) RBC Morphology Poikilocytosis Anisocytosis D-Dimer Sodium Potassium Chloride Carbon Dioxide BUN Creatinine Estimated GFR BUN/Creatinine Ratio Glucose Hemoglobin A1c Lactate 1.4 Calcium Magnesium Total Bilirubin AST ALT Alkaline Phosphatase Total Creatine Kinase CK-MB (CK-2) CK-MB (CK-2) Rel Index Troponin I NT-Pro-B Natriuret Pep 1950 H Total Protein Albumin Globulin Albumin/Globulin Ratio Lipase Procalcitonin 0.15 Urine Color Urine Appearance Urine pH Ur Specific [place] Urine Protein Urine Glucose (UA) Urine Ketones Urine Occult Blood Urine Nitrate Urine Bilirubin Urine Urobilinogen Ur Leukocyte Esterase Urine RBC Urine WBC Amorphous Sediment Urine Bacteria Ur Culture Indicated? Nasal Screen MRSA (PCR) SARS-CoV-2 (PCR) 05/22/22 05/22/22 05/22/22 10:40 12:35 13:00 WBC RBC Hgb Hct MCV MCH MCHC RDW Plt Count Neut % (Auto) Lymph % (Auto) [place] % (Auto) Eos % (Auto) Baso % (Auto) Neut # (Auto) Lymph # (Auto) [place] # (Auto) Eos # (Auto) Baso # (Auto) Total Counted Seg Neutrophils % Band Neutrophils % Lymphocytes % (Manual) Monocytes % (Manual) Eosinophils % (Manual) Basophils % (Manual) Myelocytes % Neutrophils # (Manual) RBC Morphology Poikilocytosis Anisocytosis D-Dimer 1535 H Sodium Potassium Chloride Carbon Dioxide BUN Creatinine Estimated GFR BUN/Creatinine Ratio Glucose Hemoglobin A1c Lactate Calcium Magnesium Total Bilirubin AST ALT Alkaline Phosphatase Total Creatine Kinase CK-MB (CK-2) CK-MB (CK-2) Rel Index Troponin I NT-Pro-B Natriuret Pep Total Protein Albumin Globulin Albumin/Globulin Ratio Lipase Procalcitonin Urine Color [place] Urine Appearance Sl cloudy Urine pH 5.0 Ur Specific [place] 1.020 Urine Protein 2+ H Urine Glucose (UA) Trace H Urine Ketones Negative Urine Occult Blood 3+ H Urine Nitrate Positive H Urine Bilirubin Negative Urine Urobilinogen 1.0 Ur Leukocyte Esterase 1+ H Urine RBC >100/hpf H Urine WBC 5-10/hpf H Amorphous Sediment 1+ Urine Bacteria Few (2-10) H Ur Culture Indicated? Specimen cultured Nasal Screen MRSA (PCR) SARS-CoV-2 (PCR) Negative 05/22/22 05/22/22 05/22/22 16:18 16:18 16:18 WBC RBC Hgb Hct MCV MCH MCHC RDW Plt Count Neut % (Auto) Lymph % (Auto) [place] % (Auto) Eos % (Auto) Baso % (Auto) Neut # (Auto) Lymph # (Auto) [place] # (Auto) Eos # (Auto) Baso # (Auto) Total Counted Seg Neutrophils % Band Neutrophils % Lymphocytes % (Manual) Monocytes % (Manual) Eosinophils % (Manual) Basophils % (Manual) Myelocytes % Neutrophils # (Manual) RBC Morphology Poikilocytosis Anisocytosis D-Dimer Sodium 139 Potassium 5.6 H Chloride 110 H Carbon Dioxide 13 L BUN 77 H Creatinine 3.63 H Estimated GFR 16 L BUN/Creatinine Ratio 21.2 Glucose 93 Hemoglobin A1c Lactate 0.8 Calcium 7.2 L Magnesium Total Bilirubin AST ALT Alkaline Phosphatase Total Creatine Kinase CK-MB (CK-2) CK-MB (CK-2) Rel Index Troponin I < 0.012 NT-Pro-B Natriuret Pep Total Protein Albumin Globulin Albumin/Globulin Ratio Lipase Procalcitonin Urine Color Urine Appearance Urine pH Ur Specific [place] Urine Protein Urine Glucose (UA) Urine Ketones Urine Occult Blood Urine Nitrate Urine Bilirubin Urine Urobilinogen Ur Leukocyte Esterase Urine RBC Urine WBC Amorphous Sediment Urine Bacteria Ur Culture Indicated? Nasal Screen MRSA (PCR) SARS-CoV-2 (PCR) 05/22/22 05/22/22 05/23/22 20:50 22:25 05:25 WBC 4.9 RBC 2.95 L Hgb 9.0 L Hct 27.4 L MCV 92.7 MCH 30.5 MCHC 32.9 RDW 16.6 H Plt Count 172 Neut % (Auto) Not Reportable Lymph % (Auto) Not Reportable [place] % (Auto) Not Reportable Eos % (Auto) Not Reportable Baso % (Auto) Not Reportable Neut # (Auto) Lymph # (Auto) Not Reportable [place] # (Auto) Not Reportable Eos # (Auto) Baso # (Auto) Not Reportable Total Counted 100 Seg Neutrophils % 67.0 Band Neutrophils % 3.0 Lymphocytes % (Manual) 19.0 L Monocytes % (Manual) 4.0 Eosinophils % (Manual) 5.0 H Basophils % (Manual) 1.0 Myelocytes % 1.0 H Neutrophils # (Manual) 3430 RBC Morphology See below Poikilocytosis 1+ H Anisocytosis 1+ H D-Dimer Sodium 138 Potassium 5.2 H Chloride 109 H Carbon Dioxide 16 L BUN 71 H Creatinine 3.21 H Estimated GFR 19 L BUN/Creatinine Ratio 22.1 H Glucose 140 H Hemoglobin A1c Lactate Calcium 6.9 L Magnesium 1.3 L Total Bilirubin 0.1 L AST 19 ALT 23 Alkaline Phosphatase 60 Total Creatine Kinase CK-MB (CK-2) CK-MB (CK-2) Rel Index Troponin I < 0.012 NT-Pro-B Natriuret Pep Total Protein 6.0 L Albumin 3.6 Globulin 2.4 Albumin/Globulin Ratio 1.5 Lipase Procalcitonin Urine Color Urine Appearance Urine pH Ur Specific [place] Urine Protein Urine Glucose (UA) Urine Ketones Urine Occult Blood Urine Nitrate Urine Bilirubin Urine Urobilinogen Ur Leukocyte Esterase Urine RBC Urine WBC Amorphous Sediment Urine Bacteria Ur Culture Indicated? Nasal Screen MRSA (PCR) Negative for mrsa SARS-CoV-2 (PCR) 05/23/22 05:25 WBC RBC Hgb Hct MCV MCH MCHC RDW Plt Count Neut % (Auto) Lymph % (Auto) [place] % (Auto) Eos % (Auto) Baso % (Auto) Neut # (Auto) Lymph # (Auto) [place] # (Auto) Eos # (Auto) Baso # (Auto) Total Counted Seg Neutrophils % Band Neutrophils % Lymphocytes % (Manual) Monocytes % (Manual) Eosinophils % (Manual) Basophils % (Manual) Myelocytes % Neutrophils # (Manual) RBC Morphology Poikilocytosis Anisocytosis D-Dimer Sodium 138 Potassium 5.0 Chloride 108 H Carbon Dioxide 13 L BUN 64 H Creatinine 3.17 H Estimated GFR 19 L BUN/Creatinine Ratio 20.2 Glucose 125 H Hemoglobin A1c Lactate Calcium 7.2 L Magnesium Total Bilirubin AST ALT Alkaline Phosphatase Total Creatine Kinase CK-MB (CK-2) CK-MB (CK-2) Rel Index Troponin I NT-Pro-B Natriuret Pep Total Protein Albumin Globulin Albumin/Globulin Ratio Lipase Procalcitonin Urine Color Urine Appearance Urine pH Ur Specific [place] Urine Protein Urine Glucose (UA) Urine Ketones Urine Occult Blood Urine Nitrate Urine Bilirubin Urine Urobilinogen Ur Leukocyte Esterase Urine RBC Urine WBC Amorphous Sediment Urine Bacteria Ur Culture Indicated? Nasal Screen MRSA (PCR) SARS-CoV-2 (PCR) Assessment & Plan Assessment & Plan narrative: patient seen with bedside nurse disucssed case with Dr. pisano 77 year old male admitedt o ICU for septic shock 2/2 to UTI, infected stent afib rvr acute renal failure currently afebirel, remains of levophed hr improved mental status intact suggest -pain control, minimize opiods use -continue , bolus LR eval fluid responsiveness -wean pressors, if not possible add vaso and or stress dose steroids -check serial ekg/trop -check echo -check cxs -continue abx -chest pt/oob as tolerated pt/ot/IS -check serial cbc/coags, transfuse prn -monitor ins/outs -replace lytes prn -keep glucose 1040 -diet as tolerated -gi/dvt ppx -hold home bp meds -ok w/ asa/plavix -please call eICU if condition changes Total CCm time 55 mins Time Spent With Patient Critical Care time: I spent a total of [] minutes of critical care time on this patient's care today; this time is exclusive of procedural time.
--- NOTE | 2022-05-23 11:25 | PT.IIE ---
Current Diagnoses Acute kidney failure, unspecified (05/22/22) Surgical History (Last Updated 05/23/22 @ 03:34 [facility] History of heart artery stent Hx of cystoscopy (10/16/21) Hx of cystoscopy (12/03/21) Hx of cystoscopy (03/25/22) S/P ureteral stent placement Status post colectomy (~1995) Status post vascular bypass Medical History (Last Updated 05/23/22 @ 03:34 [facility]) Anticoagulated on heparin Arthritis Bilateral nephrolithiasis Ghiytys-Aukyx-Kptts disease Colon cancer Diabetes mellitus treated with oral medication Hernia History of non-ST elevation myocardial infarction (NSTEMI) History of renal calculi Hypertension, essential Mixed hyperlipidemia Peripheral vascular disease of extremity Sleep apnea in adult Physical Therapy Inpatient Evaluation/Re-Eval M1 PT/OT-IP Prior Functional Status Start: 05/23/22 12:44 Freq: NEEDED Status: Active Protocol: Document 05/23/22 11:25 AB (Rec: 05/23/22 12:54 AB [id number]) Medical Review Prior Functional Status Medical History Reviewed Yes Communication able to make needs known Mobility and Gait pt stated that he is modified independent with all mobilities and ambulation indoors using FWW with max distance able to ambulate ~ 15 ft; uses a manual w/c for outdoor mobility; spouse assist with bed mobility and other needs if needed Prior Functional Level (Other details) pt with Charcot-Yolande- tooth Social History Household Members spouse Living Arrangements House Number of Floors (Floors) One Floor Number of Stairs To Enter/Railing? no steps to enter Home Environment High Toilet,Walk in Shower Home Equipment Front Wheel Walker,Manual Wheelchair,Raised Toilet Seat w/Armrests,Shower Seat with Backrest,Hand Held Shower,Grab Bars In Shower M2 PT-IP Current Condition Start: 05/23/22 12:44 Freq: NEEDED Status: Active Protocol: Document 05/23/22 11:25 AB (Rec: 05/23/22 12:54 AB [id number]) Physical Therapy Current Condition Current Condition Evaluation Date 05/23/22 Treatment Diagnosis sepsis; acute renal failure; difficulty in walking Onset Date 05/22/22 M3 PT-IP Subjective Start: 05/23/22 12:44 Freq: NEEDED Status: Active Protocol: Document 05/23/22 11:25 AB (Rec: 05/23/22 12:54 AB [email or web address]) Subjective Physical Therapy Visit Type Type Initial Evaluation Visit Start Time 11:25 Visit Stop Time 12:05 Total Visit Minutes 40 Number of PHARMACY RESOURCE TECH Visits 0 Physical Therapy Visit Comments Patient Comments agreeable to do PT M4 PT-IP Mobility and Gait Start: 05/23/22 12:44 Freq: NEEDED Status: Active Protocol: Document 05/23/22 11:25 AB (Rec: 05/23/22 12:54 AB [id number]) PT-Bed Mobility Assessment Supine to Sit Supine to Sit Maximum Assistance,1 Person Assistance,2 Person Assistance ,Head of Bed Elevated,Bedrails PT-Transfer Assessment Sit to and From Stand Sit to and from Stand Maximum Assistance,2 Person Assistance,Use of Upper Extremities Equipment Transfer Assistive Device Front Wheeled Walker Orthotic/Prosthetic Devices or Brace: No Transfers Transfer Destination Chair Transfer Technique Stand Step Pivot Transfer Ability Level of Assist Maximum Assistance,2 Person Assistance,Use of Upper Extremities Comments Mobility Comments completed supine to sit max A x 1-2 and max cues with HOB elevated. able to sit on EOB CGA. completed sit to stand but unable with max A provided . attempted again with max A x 2. max A x 2 for standing balance using FWW. completed step transfer using FWW max A x 2 and max cues. Presents with unsteady standing and heavy UE use. positioned pt on the chair. call light and table placed within reach. Gait Assessment Comments Gait Comments unable at this time PT-Balance Assessment Sitting Balance and Reactions Static Sitting Balance Ability Good Dynamic Sitting Balance Ability Fair Standing Balance and Reactions Static Standing Balance Ability Poor Dynamic Standing Balance Ability Poor Device Used FWW M5 PT-IP Objective Assessments Start: 05/23/22 12:44 Freq: NEEDED Status: Active Protocol: Document 05/23/22 11:25 AB (Rec: 05/23/22 12:54 AB [id number]) Orientation Orientation/Cognition Level of Alertness Alert Orientation Name,Place,Situation Language Function Ability No Deficits Noted Safety Awareness Decreased Safety Awareness Memory Description Short Term Impaired Gross Range of Motion Lower Extremity ROM Assessment Within Functional Limits Strength Lower Extremity Strength Assessment Bilaterally Impaired Hip 3+/5 Knee 3+/5 Ankle 1+/5 M6 PT-IP Treatment Start: 05/23/22 12:44 Freq: NEEDED Status: Active Protocol: Document 05/23/22 11:25 AB (Rec: 05/23/22 12:54 AB [id number]) Physical Therapy Treatment Education Education Provided Safety M7 PT-IP Assessment and Plan Start: 05/23/22 12:44 Freq: NEEDED Status: Active Protocol: Document 05/23/22 11:25 AB (Rec: 05/23/22 12:54 AB [id number]) PT Summary Assessment and Plan Potential Rehabilitation Potential Fair Status of Condition at Evaluation Evolving Summary Impairments Pain,ROM,Strength,Balance, Coordination,Sensation,Tone, Cognition,Bed Mobility, Transfers,Gait,Activity Tolerance Assessment Summary pt requiring max A x 2 with mobility using FWW but unable to ambulate at this time. will continue to assess progress but at this time will need SNF rehab. Goals Bed Mobility Goal Minimal Assistance Transfer Goal Minimal Assistance,Front Wheeled Walker Gait Goal Minimal Assistance,Front Wheel Walker Gait Distance 15 Other Goals improve transfers and ambulation using FWW 15 ft SBA Days to Meet Goals 10 Frequency of Treatment Frequency Of Treatment Once a Day Treatment Plan Physical Therapy Treatment Plan Bed Mobility Training,Transfer Training,Gait Training, Therapeutic Exercise,Balance Retraining,Discharge Planning, Hot or Cold Pack,Neuromuscular Re-ed,Coordination Retraining ,Manual Therapy Precautions Other Precautions falls Recommendations To Nursing Amount of Assist Needed 2 Person Assist Discharge Recommendations PT Discharge Recommendations Home with 17/02 Assist Available,Home Health,SNF Rehab,Home vs SNF Transportation Needs at Discharge Private Vehicle,Wheelchair/ Cabulance
[2022-05-23] MEDS: INSULIN LISPRO 100 UNIT/ML 3ML VIAL SUBCUT ×2 (12:06→17:05)
[2022-05-23] MEDS: LACTATED RINGERS 1,000 ML 60 ML IV ×2 (12:24→15:56)
[2022-05-23 12:44] LABS: BUN Creatinine Ratio 20.9 (6-22); Blood Urea Nitrogen 62 mg/dL (9-20); Calcium 7.5 mg/dL (8.4-10.2); Carbon Dioxide 16 mmol/L (22-32); Chloride 107 mmol/L (98-107); Estimated Glomerular Filt Rate 21 mL/min (>60); Glucose 149 mg/dL (80-110); HEMOLYSIS < 15 (0-50); Potassium 4.4 mmol/L (3.4-5.1); Sodium 139 mmol/L (137-145)
[2022-05-23 12:54] LABS: HCO3 ABG 17 mmol/L (22-26); PCO2 ABG 39.7 mmHg (35-45); PO2 ABG 74 mmHg (80-100); TCO2 ABG 18 mmol/L (21-31); pH ABG 7.24 (7.35-7.45)
[2022-05-23 12:55] LABS: Fractionated Inspired Oxygen 21; Oxygen Saturation ABG 92 % (95-100)
[2022-05-23] MEDS: NOREPINEPHRINE BITARTRATE/D5W 4 MG/250 ML PLAST..BAG 3 MG IV (12:59)
[2022-05-23] MEDS: LACTATED RINGERS 500 ML IV (13:35)
--- NOTE | 2022-05-23 15:42 | CM.DANOTE ---
Initial Discharge Assessment Note: Case reviewed, met with patient. Introduced self and role. Payer: Medicare and [employer] PCP: Dmitry Ferguson 77 year old male admitted yesterday with GLF off recumbent bike due to difficulty balancing resulting in right chest and eye contusions (on thinners). He is s/p lithotripsy and ureteral stent exchange in mid March. H/o urosepsis and TX. He was in [facility] in [place] and then at [facility] and just home this past week. Patient lives at home with spouse and has a new caregiver starting. He requires some assist with ADLs. PT notes state home vs SNF. He is open to [facility]: RN/PT/OT, so will need Resume orders upon dc. Plan: Home with HH vs SNF. SADE Discharge Planning/Care Management CM Discharge Assessment Start: 05/23/22 15:34 Freq: Status: Active Protocol: Document 05/23/22 15:35 (Rec: 05/23/22 15:42 [id number]) Discharge Planning Assessment Assigned Circuit Court Clerk Keena Sage RN/DCP Advance Directives? Yes Advance Directives on File Yes History Provided By Patient,Medical Record Prior Living Arrangements House Household Members spouse Type of transporation used prior to Relies on Others admit Independent with ADL's some assist Is patient alert and oriented? Yes Needs Assistance With Meal Prep,Managing Medications ,Home Chores / Shopping Comment Home vs SNF Barriers to Discharge No Discharge Plan Home Transportation Arrangement Spouse Additional Comment SNF vs HH Whiteboard Updated in Patient Room with Yes name and ext. # of Circuit Court Clerk Review Status In Process Next Review Type Continued Stay Review
[2022-05-23] MEDS: ACETAMINOPHEN 325 MG TABLET 650 MG PO (18:20)
[2022-05-23] MEDS: CEFEPIME 1 GM in SODIUM CHLORIDE 0.9% 100 ML IV (18:20)
[2022-05-23] MEDS: HYDROMORPHONE 2 MG TABLET PO (20:42)
[2022-05-23] MEDS: ATORVASTATIN 20 MG TABLET PO (20:43)
[2022-05-23] MEDS: MELATONIN 3 MG TABLET 6 MG PO (20:43)
--- NOTE | 2022-05-23 21:20 | DI.RAD.S_ITS ---
PROCEDURE: XR CHEST 1V INDICATIONS: shortness of breath TECHNIQUE: One view of the chest was acquired. COMPARISON: Merged With [facility], CR, XR CHEST 1V, 05/22/2022, 15:29. FINDINGS: Surgical changes and devices: Right internal jugular catheter extending into the right atrium is redemonstrated. Lungs and pleura: There are low lung volumes. Medial left retrocardiac opacities and peripheral right basilar opacities may represent consolidation or atelectasis. There is a suspected small right pleural effusion. No pneumothorax. Mediastinum: Mediastinal contours appear unchanged. Heart size is normal. Bones and chest wall: No suspicious bony lesions. Overlying soft tissues appear unremarkable. IMPRESSION: 1. Medial left retrocardiac and peripheral right basilar opacities consistent with atelectasis or consolidation. 2. Suspected small right pleural effusion. Dictated by: Douglas Croft M.D. on 05/23/2022 at 22:55 Approved by: Douglas Croft M.D. on 05/23/2022 at 22:56
[2022-05-23 22:09] LABS: HCO3 ABG 20 mmol/L (22-26); PCO2 ABG 37.6 mmHg (35-45); PO2 ABG 122 mmHg (80-100); TCO2 ABG 21 mmol/L (21-31); pH ABG 7.33 (7.35-7.45)
[2022-05-23 22:10] LABS: Fractionated Inspired Oxygen 28; Oxygen Saturation ABG 98 % (95-100)
[2022-05-23 22:31] LABS: Alanine Aminotransferase 23 IU/L (<50); Albumin 3.6 g/dL (3.5-5.0); Albumin Globulin Ratio 1.6 (1.0-2.8); Alkaline Phosphatase 66 U/L (38-126); Aspartate Aminotransferase 20 IU/L (17-59); BUN Creatinine Ratio 22.6 (6-22); Bilirubin Total 0.1 mg/dL (0.2-1.3); Blood Urea Nitrogen 60 mg/dL (9-20); Calcium 7.6 mg/dL (8.4-10.2); Carbon Dioxide 21 mmol/L (22-32); Chloride 109 mmol/L (98-107); Estimated Glomerular Filt Rate 24 mL/min (>60); Globulin 2.3 g/dL (1.7-4.1); Glucose 139 mg/dL (80-110); HEMOLYSIS 15 (0-50); Potassium 4.9 mmol/L (3.4-5.1); Sodium 141 mmol/L (137-145); Total Protein 5.9 g/dL (6.3-8.2)
[2022-05-23 22:32] LABS: Magnesium 1.8 mg/dL (1.6-2.3)
[2022-05-24] VITALS (102 sets, daily range): BP systolic 78–185; BP diastolic 45–144; PULSE 59–90; RESP 14–43; TEMP 36.5–37.1; O2SAT 86–100
[2022-05-24] MEDS: METOPROLOL TARTRATE 5 MG/5 ML INJ IV (02:35)
[2022-05-24 02:42] LABS: Creatine Kinase 93 U/L (55-170)
[2022-05-24 02:55] LABS: Troponin I < 0.012 ng/mL (0.01-0.034)
--- NOTE | 2022-05-24 03:20 | P.TELICUIN_ITS ---
Teleintensivist Intervention Date/Time Was camera activated?: Yes Date Patient Seen: 05/24/22 Time Patient Seen: 03:00 Issue(s) Addressed Issue(s): Resp. Distress/Ventilator management Other:: Per report from OFFSET SECOND PRESS OPERATOR: Notified that patient had been downgraded from ICU yesterday after a brief admission with shock, presumed septic. Had received IVFs, taken off home Lasix. Was doing well, on RA. However, overnight with increasing WOB. Becoming agitated per bedside RN. Patient was given 20 IV Lasix with approximately 500cc of UOP in the ensuing 2 hours. Placed on BiPAP 12/5, 18, 75% (TVs approx 300cc, leak noted). No wheezing, some crackles per bedside team. ABG at this time was 7.32/37/122 - improved from previous. BMP from this evening with improving met acidosis, improving Cr. CXR w/o pneumothorax, small effusion, small atelectasis v consolidation. Intervention(s) :: On my evaluation of patient, he has mild-moderate increased WOB with some abdominal breathing, RR in the high teens. Patient gives a thumbs up that he is feeling better. Per RN/OFFSET SECOND PRESS OPERATOR this is much improved since he arrived to ICU. BIPAP adjusted to 14/5, 18, titrating FiO2 down given he is satting 100%. Recommended mask be adjusted as leak is audible. Targeting TVs in 400s as able. Trop is currently negative, recommended repeat in 3-4 hours. Repeat ABG in 30 minutes on current BiPAP settings along with repeat EKG. Labs, including repeat BMP/CBC to occur in morning. Discussed possible repeat Lasix in the next few hours but given patient's current improvement and recent shock yesterday requiring pressors, we can monitor for the time being. I suspect patient's respiratory distress is due to a combination of atelectasis, pulmonary edema on top of his known CLAUDIO/diaphragmatic weakness. Considered PE but given rapid improvement, this is less likely. No pneumothorax. Possible aspiration event but nothing witnessed by bedside team. Considered NSTEMI - repeat trop, EKG are pending. Recommended recontact emergently if patient's respiratory distress declines again. Plan discussed with: Physician/provider (Dang Fernández)
[2022-05-24 03:53] LABS: HCO3 ABG 19 mmol/L (22-26); Oxygen Saturation ABG 92 % (95-100); PCO2 ABG 48.2 mmHg (35-45); PO2 ABG 79 mmHg (80-100); TCO2 ABG 20 mmol/L (21-31)
[2022-05-24 03:55] LABS: Fractionated Inspired Oxygen 65
--- NOTE | 2022-05-24 04:21 | PC.NURSE ---
Addendum entered by Nay Valencia R.N. 05/24/22 06:50: Patient dozed with Bi-pap on from 0300 to 30, removed it on own I need a break placed on 2L, SpO2 remain > 95%, RR 20, denies shortness of breath. Total UOP for shift 1400ml. Original Note: Clerk Supervisor Note-Patient was A/Ox4, VSS at HS, SR, 1st degree AVB, SpO2 94-97% on 2L NC, RR 20s labored only with activity. 2 person assist to BCS, gait belt and walker, had x-lg loose BM, guaiac negative. BG 142, no coverage. PO Dilaudid given with HS meds per his request, increased rib pain from activity to BSC. From 2099 to 2299 patient dozed little, but started having increased restlessness and work of breathing, audible wheezes heard, coarse crackles RLL, CXR, ABG, CMP, Mg+ drawn, Lasix 20mg IV x1 dose ordered. Again, patient rested briefly, then started having severe dyspnea around 0215, very restless, unable to lie flat or speak in full sentences. CHARGE WEIGHER and RT called to bedside, Bi-pap initiated, another ABG done, EKG done, patient now has BBB, BP 185/107, metoprolol 5mg IVP given x1, Troponin I drawn. Exerciser Horse consulted, saw patient via Tele in room. Patient relaxed once Bi-pap on, set at 14/5, 60% FIO2, rate 18, BP trending down, repeat EKG and ABG done. Denied chest pain or abdominal pain.
[2022-05-24 05:56] LABS: Add Manual Diff / Slide Review NO; Basophils Absolute Auto 0 /uL (0-100); Basophils Percent Auto 0.3 % (0-2); Eosinophils Absolute Auto 0 /uL (0-450); Eosinophils Percent Auto 0.9 % (2-4); Hematocrit 24.8 % (41-53); Hemoglobin 8.3 g/dL (13.5-17.5); Lymphocytes Absolute Auto 300 /uL (1100-4500); Lymphocytes Percent Auto 8.3 % (25-40); Mean Corpuscular HGB Conc 33.3 % (30-36); Mean Corpuscular Hemoglobin 30.7 PG (26-34); Mean Corpuscular Volume 91.9 fL (80-100); Monocytes Absolute Auto 300 /uL (0-900); Neutrophils Absolute Auto 3100 /uL (1500-7000); Neutrophils Percent Auto 82.5 % (50-75); Platelet Count 104 X10^3/uL (150-400); Red Cell Distribution Width 16.6 % (11.6-14.8); White Blood Cell Count 3.7 X10^3/uL (4.5-11.0)
[2022-05-24 06:07] LABS: BUN Creatinine Ratio 22.6 (6-22); Blood Urea Nitrogen 58 mg/dL (9-20); Calcium 7.8 mg/dL (8.4-10.2); Carbon Dioxide 19 mmol/L (22-32); Chloride 111 mmol/L (98-107); Estimated Glomerular Filt Rate 25 mL/min (>60); Glucose 125 mg/dL (80-110); HEMOLYSIS < 15 (0-50); Magnesium 1.8 mg/dL (1.6-2.3); Sodium 142 mmol/L (137-145)
[2022-05-24 06:18] LABS: Troponin I < 0.012 ng/mL (0.01-0.034)
--- NOTE | 2022-05-24 07:54 | P.PN_ITS ---
Subjective Subjective Date Patient Seen: 05/24/22 Time Patient Seen: 12:00 Interval history: More restless today with dyspnea so back on bipap and now more comfortable. Pressors are now weaned off. at bedside and confirmed DNR code status. Exam Vital Signs (past 8 hours): - 05/24/22 03:00 05/24/22 03:00 05/24/22 04:00 Temperature Pulse Rate 75 67 Respiratory Rate 31 H 17 Blood Pressure 156/73 H 92/54 L Pulse Oximetry 100 97 Oxygen Delivery Method Non -Rebreather BiPAP Oxygen Flow Rate Fraction of Inspired Oxygen 60 60 05/24/22 02:45 05/24/22 00:00 05/24/22 00:30 Temperature Pulse Rate 73 75 Respiratory Rate 18 20 Blood Pressure 95/45 L Pulse Oximetry 96 93 Oxygen Delivery Method Oxygen Flow Rate Fraction of Inspired Oxygen 55 05/24/22 01:00 05/24/22 01:05 05/24/22 01:05 Temperature Pulse Rate 76 79 Respiratory Rate 25 H 24 Blood Pressure 108/73 Pulse Oximetry 98 95 Oxygen Delivery Method Oxygen Flow Rate Fraction of Inspired Oxygen 05/24/22 01:30 05/24/22 02:00 05/24/22 02:08 Temperature Pulse Rate 81 83 90 Respiratory Rate 28 H 27 H 25 H Blood Pressure Pulse Oximetry 94 89 L 86 L Oxygen Delivery Method Oxygen Flow Rate Fraction of Inspired Oxygen 05/24/22 02:08 05/24/22 02:11 05/24/22 02:11 Temperature Pulse Rate 88 Respiratory Rate 30 H Blood Pressure 120/72 185/131 H Pulse Oximetry 100 Oxygen Delivery Method Oxygen Flow Rate Fraction of Inspired Oxygen 05/24/22 02:12 05/24/22 02:12 05/24/22 02:23 Temperature Pulse Rate 85 85 Respiratory Rate 39 H 30 H Blood Pressure 180/135 H Pulse Oximetry 100 95 Oxygen Delivery Method Oxygen Flow Rate Fraction of Inspired Oxygen 05/24/22 02:23 05/24/22 02:30 05/24/22 02:41 Temperature Pulse Rate 85 81 Respiratory Rate 41 H 27 H Blood Pressure 185/107 H Pulse Oximetry 100 93 Oxygen Delivery Method Oxygen Flow Rate Fraction of Inspired Oxygen 05/24/22 02:41 05/24/22 02:49 05/24/22 02:49 Temperature Pulse Rate 79 Respiratory Rate 25 H Blood Pressure 125/75 179/84 H Pulse Oximetry 100 Oxygen Delivery Method Oxygen Flow Rate Fraction of Inspired Oxygen 05/24/22 03:00 05/24/22 03:01 05/24/22 03:01 Temperature Pulse Rate 76 76 Respiratory Rate 23 23 Blood Pressure 156/73 H Pulse Oximetry 100 100 Oxygen Delivery Method Oxygen Flow Rate Fraction of Inspired Oxygen 05/24/22 03:05 05/24/22 03:05 05/24/22 03:15 Temperature Pulse Rate 74 72 Respiratory Rate 22 21 Blood Pressure 144/70 H Pulse Oximetry 100 100 Oxygen Delivery Method Oxygen Flow Rate Fraction of Inspired Oxygen 05/24/22 03:15 05/24/22 03:30 05/24/22 03:30 Temperature Pulse Rate 73 Respiratory Rate 19 Blood Pressure 116/65 119/64 Pulse Oximetry 98 Oxygen Delivery Method Oxygen Flow Rate Fraction of Inspired Oxygen 05/24/22 03:46 05/24/22 03:46 05/24/22 04:00 Temperature Pulse Rate 71 67 Respiratory Rate 19 18 Blood Pressure 93/67 Pulse Oximetry 98 97 Oxygen Delivery Method Oxygen Flow Rate Fraction of Inspired Oxygen 05/24/22 04:01 05/24/22 04:01 05/24/22 04:15 Temperature Pulse Rate 67 Respiratory Rate 18 Blood Pressure 92/54 L 92/55 L Pulse Oximetry 98 Oxygen Delivery Method Oxygen Flow Rate Fraction of Inspired Oxygen 05/24/22 04:15 05/24/22 04:30 05/24/22 04:30 Temperature Pulse Rate 68 71 Respiratory Rate 18 23 Blood Pressure 94/60 Pulse Oximetry 97 99 Oxygen Delivery Method Oxygen Flow Rate Fraction of Inspired Oxygen 05/24/22 04:46 05/24/22 04:46 05/24/22 05:38 Temperature Pulse Rate 68 Respiratory Rate 33 H Blood Pressure 87/51 L Pulse Oximetry 99 Oxygen Delivery Method Oxygen Flow Rate Fraction of Inspired Oxygen 55 05/24/22 05:00 05/24/22 06:00 05/24/22 06:45 Temperature 97.7 F Pulse Rate 71 77 Respiratory Rate 23 Blood Pressure 91/53 L 103/69 Pulse Oximetry 100 96 Oxygen Delivery Method Oxygen Flow Rate 2 Fraction of Inspired Oxygen 55 05/24/22 07:00 05/24/22 07:01 05/24/22 07:01 Temperature Pulse Rate 72 71 Respiratory Rate 18 21 Blood Pressure 78/49 L Pulse Oximetry 96 96 Oxygen Delivery Method Oxygen Flow Rate Fraction of Inspired Oxygen 05/24/22 07:06 05/24/22 07:06 Temperature Pulse Rate 71 Respiratory Rate 20 Blood Pressure 91/54 L Pulse Oximetry 97 Oxygen Delivery Method Oxygen Flow Rate Fraction of Inspired Oxygen Fraction of Inspired Oxygen 55 Oxygen Delivery Method Non -Rebreather,BiPAP Oxygen Flow Rate 2 Narrative Exam Narrative: GEN: no acute distress, elderly man with bipap in place HEENT: moist mucous membranes, PERRL NECK: trachea midline, no JVD, RIJ central line CV: regular rate and rhythm, no murmurs PULM: clear bilaterally ABD: soft, nontender, nondistended, no organomegaly SKIN: multiple bruises on extremities EXT: warm and well perfused with no edema NEURO: somnolent, no focal deficits Objective Labs Result Diagrams: 05/24/22 05:45 05/24/22 05:45 Labs: Laboratory Results - last 24 hr 05/23/22 05/23/22 05/23/22 05:25 12:13 12:33 WBC 4.9 RBC 2.95 L Hgb 9.0 L Hct 27.4 L MCV 92.7 MCH 30.5 MCHC 32.9 RDW 16.6 H Plt Count 172 Neut % (Auto) Lymph % (Auto) [place] % (Auto) Eos % (Auto) Baso % (Auto) Neut # (Auto) Lymph # (Auto) [place] # (Auto) Eos # (Auto) Baso # (Auto) Total Counted 100 Seg Neutrophils % 67.0 Band Neutrophils % 3.0 Lymphocytes % (Manual) 19.0 L Monocytes % (Manual) 4.0 Eosinophils % (Manual) 5.0 H Basophils % (Manual) 1.0 Myelocytes % 1.0 H Neutrophils # (Manual) 3430 RBC Morphology See below Poikilocytosis 1+ H Anisocytosis 1+ H ABG pH 7.24 L* ABG pCO2 39.7 ABG pO2 74 L ABG HCO3 17 L ABG Total CO2 18 L ABG O2 Saturation 92 L ABG Base Excess -10.0 L FiO2 21 Sodium 139 Potassium 4.4 Chloride 107 Carbon Dioxide 16 L BUN 62 H Creatinine 2.97 H Estimated GFR 21 L BUN/Creatinine Ratio 20.9 Glucose 149 H Calcium 7.5 L Magnesium Total Bilirubin AST ALT Alkaline Phosphatase Total Creatine Kinase CK-MB (CK-2) CK-MB (CK-2) Rel Index Troponin I Total Protein Albumin Globulin Albumin/Globulin Ratio 05/23/22 05/23/22 05/23/22 21:21 21:55 21:55 WBC RBC Hgb Hct MCV MCH MCHC RDW Plt Count Neut % (Auto) Lymph % (Auto) [place] % (Auto) Eos % (Auto) Baso % (Auto) Neut # (Auto) Lymph # (Auto) [place] # (Auto) Eos # (Auto) Baso # (Auto) Total Counted Seg Neutrophils % Band Neutrophils % Lymphocytes % (Manual) Monocytes % (Manual) Eosinophils % (Manual) Basophils % (Manual) Myelocytes % Neutrophils # (Manual) RBC Morphology Poikilocytosis Anisocytosis ABG pH 7.33 L ABG pCO2 37.6 ABG pO2 122 H ABG HCO3 20 L ABG Total CO2 21 ABG O2 Saturation 98 ABG Base Excess -6.0 L FiO2 28 Sodium 141 Potassium 4.9 Chloride 109 H Carbon Dioxide 21 L BUN 60 H Creatinine 2.65 H Estimated GFR 24 L BUN/Creatinine Ratio 22.6 H Glucose 139 H Calcium 7.6 L Magnesium 1.8 Total Bilirubin 0.1 L AST 20 ALT 23 Alkaline Phosphatase 66 Total Creatine Kinase CK-MB (CK-2) CK-MB (CK-2) Rel Index Troponin I Total Protein 5.9 L Albumin 3.6 Globulin 2.3 Albumin/Globulin Ratio 1.6 05/24/22 05/24/22 05/24/22 02:20 03:27 05:45 WBC 3.7 L RBC 2.70 L Hgb 8.3 L Hct 24.8 L MCV 91.9 MCH 30.7 MCHC 33.3 RDW 16.6 H Plt Count 104 L Neut % (Auto) 82.5 H Lymph % (Auto) 8.3 L [place] % (Auto) 8.0 Eos % (Auto) 0.9 L Baso % (Auto) 0.3 Neut # (Auto) 3100 Lymph # (Auto) 300 L [place] # (Auto) 300 Eos # (Auto) 0 Baso # (Auto) 0 Total Counted Seg Neutrophils % Band Neutrophils % Lymphocytes % (Manual) Monocytes % (Manual) Eosinophils % (Manual) Basophils % (Manual) Myelocytes % Neutrophils # (Manual) RBC Morphology Poikilocytosis Anisocytosis ABG pH 7.20 L* ABG pCO2 48.2 H ABG pO2 79 L ABG HCO3 19 L ABG Total CO2 20 L ABG O2 Saturation 92 L ABG Base Excess -9.0 L FiO2 65 Sodium Potassium Chloride Carbon Dioxide BUN Creatinine Estimated GFR BUN/Creatinine Ratio Glucose Calcium Magnesium Total Bilirubin AST ALT Alkaline Phosphatase Total Creatine Kinase 93 CK-MB (CK-2) TNP CK-MB (CK-2) Rel Index TNP Troponin I < 0.012 Total Protein Albumin Globulin Albumin/Globulin Ratio 05/24/22 05/24/22 05/24/22 05:45 05:45 05:45 WBC RBC Hgb Hct MCV MCH MCHC RDW Plt Count Neut % (Auto) Lymph % (Auto) [place] % (Auto) Eos % (Auto) Baso % (Auto) Neut # (Auto) Lymph # (Auto) [place] # (Auto) Eos # (Auto) Baso # (Auto) Total Counted Seg Neutrophils % Band Neutrophils % Lymphocytes % (Manual) Monocytes % (Manual) Eosinophils % (Manual) Basophils % (Manual) Myelocytes % Neutrophils # (Manual) RBC Morphology Poikilocytosis Anisocytosis ABG pH ABG pCO2 ABG pO2 ABG HCO3 ABG Total CO2 ABG O2 Saturation ABG Base Excess FiO2 Sodium 142 Potassium 5.0 Chloride 111 H Carbon Dioxide 19 L BUN 58 H Creatinine 2.57 H Estimated GFR 25 L BUN/Creatinine Ratio 22.6 H Glucose 125 H Calcium 7.8 L Magnesium 1.8 Total Bilirubin AST ALT Alkaline Phosphatase Total Creatine Kinase CK-MB (CK-2) CK-MB (CK-2) Rel Index Troponin I < 0.012 Total Protein Albumin Globulin Albumin/Globulin Ratio 05/24/22 05:45 WBC RBC Hgb Hct MCV MCH MCHC RDW Plt Count Neut % (Auto) Lymph % (Auto) [place] % (Auto) Eos % (Auto) Baso % (Auto) Neut # (Auto) Lymph # (Auto) [place] # (Auto) Eos # (Auto) Baso # (Auto) Total Counted Seg Neutrophils % Band Neutrophils % Lymphocytes % (Manual) Monocytes % (Manual) Eosinophils % (Manual) Basophils % (Manual) Myelocytes % Neutrophils # (Manual) RBC Morphology Poikilocytosis Anisocytosis ABG pH ABG pCO2 ABG pO2 ABG HCO3 ABG Total CO2 ABG O2 Saturation ABG Base Excess FiO2 Sodium Potassium Chloride Carbon Dioxide BUN Creatinine Estimated GFR BUN/Creatinine Ratio Glucose Calcium Magnesium Cancelled Total Bilirubin AST ALT Alkaline Phosphatase Total Creatine Kinase CK-MB (CK-2) CK-MB (CK-2) Rel Index Troponin I Total Protein Albumin Globulin Albumin/Globulin Ratio [facility] Medical History (Updated 05/23/22 @ 03:34 by JANETH Timmons-) Anticoagulated on heparin Arthritis Bilateral nephrolithiasis Kxmudei-Szrpq-Ftnpo disease Colon cancer Diabetes mellitus treated with oral medication Hernia History of non-ST elevation myocardial infarction (NSTEMI) History of renal calculi Hypertension, essential Mixed hyperlipidemia Peripheral vascular disease of extremity Sleep apnea in adult Surgical History (Updated 05/23/22 @ 03:34 by JANETH Timmons-) History of heart artery stent Hx of cystoscopy (10/16/21) Hx of cystoscopy (12/03/21) Hx of cystoscopy (03/25/22) S/P ureteral stent placement Status post colectomy (~1995) Status post vascular bypass Family History Father Ulcer History of blood clots Mother No known problems Social History marital status: household members: spouse lives independently: Yes occupational status: other Smoking Status: Former smoker alcohol intake: current substance use type: does not use Type(s) of exercise: bicycling frequency: 1-2 times per week Assessment & Plan Assessment & Plan narrative: 1. Shock (renal, respiratory, cardiogenic), sepsis ruled out, acute, present on admission, resolved -sofa score: 8, initial hypotensive blood pressures in ED 80/62, 87/46, 74/39, tachypneic respiratory rates 25-31, O2 saturations reported below 90% on room air. -in ED patient was placed on 2 L nasal cannula, sepsis fluid bundle provided, Rocephin, patient is started on Levophed drip. -blood and urine cultures negative, stop abx -able to wean off levophed -obtain new echo to assess EF 2. CALIXTO secondary to UTI, status post renal stent removal within the past 24 hours, complicated by urinary retention, and enlarged prostate, resulting in hyperkalemia, acute on chronic, in the setting of obstructive bilateral nephrolithiasis with multiple stents, acute on chronic present on admission, improving - status post cystoscopy/right ureteroscopic laser lithotripsy/and right ureteral stent exchange on 04/15/2022.? 04/17/2022 admit for sepsis with septic shock, acute resp failure with Enterobacter urosepsis and myocardial infarction, 05/21/2022 right ureteral stent removal by Dr. Cowan. - initial potassium 6.1, bicarb 13, BUN 83, creatinine 4.42, blood sugar 72, GFR 13. Calcium 7.2. Repeat labs potassium 5.6, creatinine 3.63, GFR 16, calcium 8.1, -corrected calcium 7.36. Labs from 04/18/2022 BUN 21, creatinine 1.34, GFR 55. -Renal ultrasound normal kidneys, without hydronephrosis, nonobstructing right renal calculi -continue sequeira and may need outpatient urology f/u 3. Acute respiratory failure, acute, exacerbated by Mfxajvq-Wspkv-Hmvvy dz with related chronic muscular deconditioning/weakness, chronic left diaphragmatic paralysis, recent NSTEMI, with heart stents x2, and likely new Dx of CHF exacerbation, by elevated BNP present on admission -tachypneic respiratory rates 25-31, O2 saturations reported below 90% on room air in ED. -continue bipap -wean O2 as able -echo as above -ABG with resolved hypercapnia -recs per tele ICU 4. Ground level fall resulting in right chest wall and right eye contusion, se condary to both acute and chronic illness and Jrteukr-Lppck-Pqczg dz with related chronic muscular deconditioning/weakness, acute on chronic, on chronic Plavix, present on admission. -Monitor for bleeding. -C-spine CT: no fractures -Head CT negative for any intracranial hemorrhages, right periorbital soft tissue swelling without associated regional fracture -Face CT negative for fracture noted right periorbital soft tissue swelling -Abdomen pelvis CT no fractures noted. -pain management -PT/OT consult -Ortho Consult Dr. Armijo placed for generalized evaluation- due to repeated falls and risk for fractures not immediately observed on initial imaging. -recommend post hospitalization SNF placement and NET WEB APPLICATION DEVELOPER consult for in-home evaluation for safety/falls and community support. -recommend follow-up with PCP for bone density testing. 5. Recent NSTEMI (04/17/2022) with coronary artery stent placement x2, in the setting of elevated BNP-likely CHF exacerbation, essential hypertension, acute, present on admission -Dimer 1535, chest CT of abdomen pelvis negative for PE -Troponins negative x2, BNP 1950 -EKG NSR with a rate of [address] changes, T-wave inversion no change from previous EKGs and no prolonged QT interval. -clinical nursing director request for records [facility] for recent echo cardiac catheterization and heart stent placement x2 (within the last month) -gentle diuresis Lasix 20 mg IV b.i.d.-again due to severe CALIXTO may consider Lasix drip in conjunction with gentle rehydration. -due to hypotensive cardiogenic shock holding oral Lasix, lisinopril, losartan, metoprolol, amiodarone, atenolol -continue patient's Plavix, ASA -heparin b.i.d. -troponins neg x6 6. Anemia, likely secondary to chronic illness, acute on chronic, present on admission -patient did experience multiple ground level falls and is on chronic Plavix -initial H&H 9.4/28.4 platelets 148-04/18/2022 10.7/32.6 platelets 134 patient is slightly below lift baseline most likely represents dilutional secondary to sepsis bolus hydration. -will continue to trend H&H and monitor for bleeding. 7. Restless leg syndrome, chronic, present on admission -hold Requip 8. Hyperlipidemia, mixed, chronic, secondary to type 2 diabetes, chronic, present on admission -A1c 5.0% on admission today, previous A1c 6.6 04/18/2022 -based on current up-to-date guidelines regarding A1c in the elderly patient's A1c allowed up to 7.5 without medication management-to avoid hypoglycemia in the elderly and related risks and complications. On last admit patient had been initiated on Lantus in addition to metformin resulting in an A1c of 5.0 today. -I am stopping all diabetic medications- patient follow-up with PCP or Nephrology in 3 months for A1c repeat and re-evaluation. -patient admitted under diabetic protocols, monitor for hypoglycemia/hyperglycemia, low-dose sliding scale in place if needed -continue lisinopril for renal/cardiovascular protective 9. Intermittent agitation likely secondary to hospital delirium -haldol PRN Code status:Full Surrogate decision maker: Jayla Milton COVID PCR:Negative DVT/VTE prophylaxis: Heparin and SCDs Disposition: Patient is admitted to the ICU for management respiratory and blood pressure support, fluid/ renal sepsis hydration, treatment with a ntibiotics, mild diuresis for possible CHF, monitor for bleeding secondary to chronic anticoagulation in the setting of multiple falls. This was a critical care admit requiring greater than 30 minutes. Time Spent With Patient Critical Care time: I spent a total of [] minutes of critical care time on this patient's care tod ay; this time is exclusive of procedural time. Quality VTE Deep Vein Thrombosis/Pulmonary Embolism Present on Admission: No
[2022-05-24] MEDS: ALPRAZolam 0.5 MG TABLET PO (09:09)
[2022-05-24] MEDS: SODIUM CHLORIDE 0.9% FLUSH 10 ML IV ×2 (09:10→20:05)
[2022-05-24] MEDS: ASPIRIN EC 81 MG TABLET PO (09:10)
[2022-05-24] MEDS: CLOPIDOGREL 75 MG TABLET PO (09:10)
[2022-05-24] MEDS: HEPARIN 5,000 UNIT/ML VIAL 5000 UNIT SUBCUT ×2 (09:47→20:04)
--- NOTE | 2022-05-24 10:35 | DI.RAD.S_ITS ---
PROCEDURE: XR CHEST 1V INDICATIONS: SOB TECHNIQUE: One view of the chest was acquired. COMPARISON: [facility], , XR CHEST 1V, 05/23/2022, 21:23. FINDINGS: Surgical changes and devices: Right internal jugular catheter is again seen with tip projecting over the superior right atrium. Lungs and pleura: Low lung volumes are seen bilaterally with atelectasis of the lung bases. No pleural effusion or pneumothorax. Mediastinum: Mediastinal contours appear normal. Heart size is normal. Bones and chest wall: No suspicious bony lesions. Overlying soft tissues appear unremarkable. IMPRESSION: Low lung volumes bilaterally with mild bibasilar atelectasis versus consolidations. Approved by: Abel Hitchcock M.D. on 05/24/2022 at 11:21
--- NOTE | 2022-05-24 11:26 | P.TELICUPN_ITS ---
Subjective Subjective IF CAMERA ACTIVATED, patient seen via real-time interactive audiovisual communication: Camera activated Consent obtained for tele-net application support specialist care: Yes Patient Location: ICU Provider location (State): [place] Other participants/roles: Dr. Pisano Current Medications Current Medications Medications: Home Medications atenolol 50 mg tablet 50 mg PO DAILY #90 tabs 05/31/21 [Rx Confirmed 05/22/22] clopidogrel 75 mg tablet (Plavix) 75 mg PO DAILY #90 tabs 05/31/21 [Rx Confirmed 05/22/22] lisinopril 5 mg tablet 5 mg PO DAILY #90 tabs 05/31/21 [Rx Confirmed 05/22/22] albuterol sulfate 90 mcg/actuation aerosol inhaler (ProAir HFA) 1 puff inhalation Q6H PRN shortness of breath or wheezing #8.5 grams 08/30/21 [Rx Confirmed 05/22/22] metformin 1,000 mg tablet 1,000 mg PO BID #180 tabs 12/10/21 [Rx Confirmed 05/22] ropinirole 4 mg tablet 8 mg PO BEDTIME #180 tabs 02/18/22 [Rx Confirmed 05/22/22] potassium citrate 10 mEq (1,080 mg) tablet,extended release 10 meq PO TID #270 tabs 03/19/22 [Rx Confirmed 05/22/22] alprazolam 0.5 mg tablet 0.5 mg PO DAILY #1 tab 05/20/22 [Rx Confirmed 05/22/22] amiodarone 200 mg tablet 200 mg PO DAILY 05/22/22 [History Confirmed 05/22/22] furosemide 20 mg tablet 20 mg PO DAILY 05/22/22 [History Confirmed 05/22/22] losartan 50 mg tablet 50 mg PO DAILY 05/22/22 [History Confirmed 05/22/22] metoprolol succinate 25 mg tablet,extended release 24 hr 25 mg PO DAILY 05/22/22 [History Confirmed 05/22/22] Visit Medications (administered) Generic Name Dose Route Start Last Admin Trade Name Freq PRN Reason Stop Dose Admin Acetaminophen 650 mg 05/22/22 18:19 05/23/22 18:20 Acetaminophen 325 Mg Tablet PO 650 mg Q6H PRN Administration Fever/Mild Pain (1-3) Alprazolam 0.5 mg 05/23/22 09:00 05/24/22 09:09 Alprazolam 0.5 Mg Tablet PO 0.5 mg DAILY MARICARMEN Administration Aspirin 81 mg 05/23/22 09:00 05/24/22 09:10 Aspirin Ec 81 Mg Tablet PO 81 mg DAILY MARICARMEN Administration Atorvastatin Calcium 20 mg 05/22/22 21:00 05/23/22 20:43 Atorvastatin 20 Mg Tablet PO 20 mg BEDTIME MARICARMEN Administration Clopidogrel Bisulfate 75 mg 05/23/22 09:00 05/24/22 09:10 Clopidogrel 75 Mg Tablet PO 75 mg DAILY MARICARMEN Administration Heparin Sodium (Porcine) 5,000 unit 05/22/22 21:00 05/24/22 09:47 Heparin 5,000 Unit/Ml Vial SUBCUT 5,000 unit BID MARICARMEN Administration Heparin Sodium (Porcine) 50 unit 05/23/22 09:00 05/24/22 09:10 Heparin Flush (Cl/Picc/Mid-Line) 50 Unit/5 Ml Syringe IV 50 unit BID MARICARMEN Administration Hydromorphone HCl 2 mg 05/22/22 21:51 05/23/22 20:42 Hydromorphone 2 Mg Tablet PO 2 mg Q4HR PRN Administration Pain, Severe (7-10) Cefepime HCl 1 gm/ Sodium 100 mls @ 200 mls/hr 05/22/22 19:00 05/24/22 00:43 Chloride IV Infused Q24H MARICARMEN Infusion Insulin Human Lispro 0 unit 05/22/22 21:00 05/24/22 08:02 Insulin Lispro 100 Unit/Ml 3ml Vial SUBCUT Not Given ACHS [facility] Protocol Melatonin 6 mg 05/22/22 18:13 05/23/22 20:43 Melatonin 3 Mg Tablet PO 6 mg BEDTIME PRN Administration Insomnia Ropinirole HCl 4 mg 05/23/22 18:00 05/23/22 18:23 Ropinirole 1 Mg Tablet PO 4 mg DAILY@1800 MARICARMEN Administration Sodium Chloride 10 ml 05/23/22 00:03 05/23/22 23:09 Sodium Chloride 0.9% Flush IV 10 ml PRN PRN Administration Flush Sodium Chloride 10 ml 05/23/22 09:00 05/24/22 09:10 Sodium Chloride 0.9% Flush IV 10 ml BID MARICARMEN Administration Objective Labs Result Diagrams: 05/24/22 05:45 10/28/22 05:45 Labs: Laboratory Results - last 24 hr 05/23/22 05/23/22 05/23/22 12:13 12:33 21:21 WBC RBC Hgb Hct MCV MCH MCHC RDW Plt Count Neut % (Auto) Lymph % (Auto) Woodruff % (Auto) Eos % (Auto) Baso % (Auto) Neut # (Auto) Lymph # (Auto) Woodruff # (Auto) Eos # (Auto) Baso # (Auto) ABG pH 7.24 L* 7.33 L ABG pCO2 39.7 37.6 ABG pO2 74 L 122 H ABG HCO3 17 L 20 L ABG Total CO2 18 L 21 ABG O2 Saturation 92 L 98 ABG Base Excess -10.0 L -6.0 L FiO2 21 28 Sodium 139 Potassium 4.4 Chloride 107 Carbon Dioxide 16 L BUN 62 H Creatinine 2.97 H Estimated GFR 21 L BUN/Creatinine Ratio 20.9 Glucose 149 H Calcium 7.5 L Magnesium Total Bilirubin AST ALT Alkaline Phosphatase Total Creatine Kinase CK-MB (CK-2) CK-MB (CK-2) Rel Index Troponin I Total Protein Albumin Globulin Albumin/Globulin Ratio 05/23/22 05/23/22 05/24/22 21:55 21:55 02:20 WBC RBC Hgb Hct MCV MCH MCHC RDW Plt Count Neut % (Auto) Lymph % (Auto) Woodruff % (Auto) Eos % (Auto) Baso % (Auto) Neut # (Auto) Lymph # (Auto) Woodruff # (Auto) Eos # (Auto) Baso # (Auto) ABG pH ABG pCO2 ABG pO2 ABG HCO3 ABG Total CO2 ABG O2 Saturation ABG Base Excess FiO2 Sodium 141 Potassium 4.9 Chloride 109 H Carbon Dioxide 21 L BUN 60 H Creatinine 2.65 H Estimated GFR 24 L BUN/Creatinine Ratio 22.6 H Glucose 139 H Calcium 7.6 L Magnesium 1.8 Total Bilirubin 0.1 L AST 20 ALT 23 Alkaline Phosphatase 66 Total Creatine Kinase 93 CK-MB (CK-2) TNP CK-MB (CK-2) Rel Index TNP Troponin I < 0.012 Total Protein 5.9 L Albumin 3.6 Globulin 2.3 Albumin/Globulin Ratio 1.6 05/24/22 05/24/22 05/24/22 03:27 05:45 05:45 WBC 3.7 L RBC 2.70 L Hgb 8.3 L Hct 24.8 L MCV 91.9 MCH 30.7 MCHC 33.3 RDW 16.6 H Plt Count 104 L Neut % (Auto) 82.5 H Lymph % (Auto) 8.3 L Woodruff % (Auto) 8.0 Eos % (Auto) 0.9 L Baso % (Auto) 0.3 Neut # (Auto) 3100 Lymph # (Auto) 300 L Woodruff # (Auto) 300 Eos # (Auto) 0 Baso # (Auto) 0 ABG pH 7.20 L* ABG pCO2 48.2 H ABG pO2 79 L ABG HCO3 19 L ABG Total CO2 20 L ABG O2 Saturation 92 L ABG Base Excess -9.0 L FiO2 65 Sodium 142 Potassium 5.0 Chloride 111 H Carbon Dioxide 19 L BUN 58 H Creatinine 2.57 H Estimated GFR 25 L BUN/Creatinine Ratio 22.6 H Glucose 125 H Calcium 7.8 L Magnesium Total Bilirubin AST ALT Alkaline Phosphatase Total Creatine Kinase CK-MB (CK-2) CK-MB (CK-2) Rel Index Troponin I Total Protein Albumin Globulin Albumin/Globulin Ratio 05/24/22 05/24/22 05/24/22 05:45 05:45 05:45 WBC RBC Hgb Hct MCV MCH MCHC RDW Plt Count Neut % (Auto) Lymph % (Auto) Woodruff % (Auto) Eos % (Auto) Baso % (Auto) Neut # (Auto) Lymph # (Auto) Woodruff # (Auto) Eos # (Auto) Baso # (Auto) ABG pH ABG pCO2 ABG pO2 ABG HCO3 ABG Total CO2 ABG O2 Saturation ABG Base Excess FiO2 Sodium Potassium Chloride Carbon Dioxide BUN Creatinine Estimated GFR BUN/Creatinine Ratio Glucose Calcium Magnesium 1.8 Cancelled Total Bilirubin AST ALT Alkaline Phosphatase Total Creatine Kinase CK-MB (CK-2) CK-MB (CK-2) Rel Index Troponin I < 0.012 Total Protein Albumin Globulin Albumin/Globulin Ratio Exam Vital Signs (past 8 hours): - 05/24/22 04:00 05/24/22 03:30 05/24/22 03:30 Temperature Pulse Rate 67 73 Respiratory Rate 17 19 Blood Pressure 92/54 L 119/64 Pulse Oximetry 97 98 Oxygen Delivery Method Oxygen Flow Rate Fraction of Inspired Oxygen 60 05/24/22 03:46 05/24/22 03:46 05/24/22 04:00 Temperature Pulse Rate 71 67 Respiratory Rate 19 18 Blood Pressure 93/67 Pulse Oximetry 98 97 Oxygen Delivery Method Oxygen Flow Rate Fraction of Inspired Oxygen 05/24/22 04:01 05/24/22 04:01 05/24/22 04:15 Temperature Pulse Rate 67 Respiratory Rate 18 Blood Pressure 92/54 L 92/55 L Pulse Oximetry 98 Oxygen Delivery Method Oxygen Flow Rate Fraction of Inspired Oxygen 05/24/22 04:15 05/24/22 04:30 05/24/22 04:30 Temperature Pulse Rate 68 71 Respiratory Rate 18 23 Blood Pressure 94/60 Pulse Oximetry 97 99 Oxygen Delivery Method Oxygen Flow Rate Fraction of Inspired Oxygen 05/24/22 04:46 05/24/22 04:46 05/24/22 05:38 Temperature Pulse Rate 68 Respiratory Rate 33 H Blood Pressure 87/51 L Pulse Oximetry 99 Oxygen Delivery Method Oxygen Flow Rate Fraction of Inspired Oxygen 55 05/24/22 05:00 05/24/22 06:00 05/24/22 06:45 Temperature 97.7 F Pulse Rate 71 77 Respiratory Rate 23 Blood Pressure 91/53 L 103/69 Pulse Oximetry 100 96 Oxygen Delivery Method Oxygen Flow Rate 2 Fraction of Inspired Oxygen 55 05/24/22 07:00 05/24/22 07:01 05/24/22 07:01 Temperature Pulse Rate 72 71 Respiratory Rate 18 21 Blood Pressure 78/49 L Pulse Oximetry 96 96 Oxygen Delivery Method Oxygen Flow Rate Fraction of Inspired Oxygen 05/24/22 07:06 05/24/22 07:06 05/24/22 07:30 Temperature Pulse Rate 71 71 Respiratory Rate 20 18 Blood Pressure 91/54 L Pulse Oximetry 97 95 Oxygen Delivery Method Oxygen Flow Rate Fraction of Inspired Oxygen 05/24/22 07:31 05/24/22 07:31 05/24/22 08:00 Temperature Pulse Rate 71 78 Respiratory Rate 15 37 H Blood Pressure 109/52 L Pulse Oximetry 95 96 Oxygen Delivery Method Oxygen Flow Rate Fraction of Inspired Oxygen 05/24/22 08:01 05/24/22 08:01 05/24/22 08:30 Temperature 98.7 F Pulse Rate 77 71 Respiratory Rate 32 H 30 H Blood Pressure 146/65 H Pulse Oximetry 91 95 Oxygen Delivery Method Oxygen Flow Rate 2 Fraction of Inspired Oxygen 05/24/22 08:31 05/24/22 08:31 05/24/22 09:00 Temperature Pulse Rate 74 Respiratory Rate 26 H Blood Pressure 142/68 H 128/103 H Pulse Oximetry 95 Oxygen Delivery Method Oxygen Flow Rate Fraction of Inspired Oxygen 05/24/22 09:00 05/24/22 09:09 05/24/22 09:09 Temperature Pulse Rate 78 79 Respiratory Rate 37 H 34 H Blood Pressure 138/102 H Pulse Oximetry 89 L 91 Oxygen Delivery Method Oxygen Flow Rate Fraction of Inspired Oxygen 05/24/22 09:11 05/24/22 09:11 05/24/22 09:30 Temperature Pulse Rate 78 90 Respiratory Rate 27 H 41 H Blood Pressure 161/72 H Pulse Oximetry 92 94 Oxygen Delivery Method Oxygen Flow Rate Fraction of Inspired Oxygen 05/24/22 09:38 05/24/22 09:38 05/24/22 09:42 Temperature Pulse Rate 89 Respiratory Rate 31 H Blood Pressure 171/144 H 163/84 H Pulse Oximetry 94 Oxygen Delivery Method Oxygen Flow Rate Fraction of Inspired Oxygen 05/24/22 09:42 05/24/22 10:12 05/24/22 07:19 Temperature Pulse Rate 90 Respiratory Rate 34 H Blood Pressure 136/95 H Pulse Oximetry 96 Oxygen Delivery Method Nasal Cannula Oxygen Flow Rate Fraction of Inspired Oxygen 40 05/24/22 11:00 05/24/22 10:00 05/24/22 10:01 Temperature Pulse Rate 87 88 Respiratory Rate 36 H 40 H Blood Pressure Pulse Oximetry Oxygen Delivery Method BiPAP Oxygen Flow Rate Fraction of Inspired Oxygen 05/24/22 10:01 05/24/22 10:30 05/24/22 10:32 Temperature Pulse Rate 85 Respiratory Rate 30 H Blood Pressure 136/95 H 169/65 H Pulse Oximetry 98 Oxygen Delivery Method Oxygen Flow Rate Fraction of Inspired Oxygen 05/24/22 10:32 05/24/22 11:00 05/24/22 11:01 Temperature Pulse Rate 84 76 76 Respiratory Rate 36 H 18 18 Blood Pressure Pulse Oximetry 100 98 98 Oxygen Delivery Method Oxygen Flow Rate Fraction of Inspired Oxygen 05/24/22 11:01 Temperature Pulse Rate Respiratory Rate Blood Pressure 102/58 L Pulse Oximetry Oxygen Delivery Method Oxygen Flow Rate Fraction of Inspired Oxygen Fraction of Inspired Oxygen 40 Oxygen Delivery Method BiPAP Oxygen Flow Rate 2 Quality TeleICU VTE Deep Vein Thrombosis/Pulmonary Embolism Present on Admission: No Assessment & Plan Assessment & Plan narrative: patient seen with bedside nurse disucssed case with Dr. pisano 77 year old male admitedt o ICU for septic shock 2/2 to UTI, infected stent afib rvr acute renal failure acute hypoxic resp failure 2/2 fluid overload currently afebirle, HD stable tachypnea mental status intact cxr b/l infiltres likely pulmonary edmea suggest -pain control, minimize opiods use -dc ivf -lasix 40mg ivp -bipap to keep sat above 92% -check echo -chec final cxs -cont abx, can dc vanco -chest pt/oob as tolerated pt/ot/IS -monitor ins/outs -replace lytes prn -keep glucose 1040 -diet as tolerated -gi/dvt ppx -asa/plavix -please call eICU if condition changes Total CCm time 45 mins Time Spent With Patient Critical Care time: I spent a total of [] minutes of critical care time on this patient's care today; this time is exclusive of procedural time.
[2022-05-24 12:02] LABS: Fractionated Inspired Oxygen 30; HCO3 ABG 19 mmol/L (22-26); Oxygen Saturation ABG 97 % (95-100); PCO2 ABG 35.8 mmHg (35-45); PO2 ABG 95 mmHg (80-100); TCO2 ABG 20 mmol/L (21-31); pH ABG 7.33 (7.35-7.45)
[2022-05-24] MEDS: INSULIN LISPRO 100 UNIT/ML 3ML VIAL SUBCUT (12:27)
--- NOTE | 2022-05-24 12:41 | DI.ECHO.S_ITS ---
[facility]---------+ [facility] +---------+ : : [address] : : : : [phone] : : : : Phone: [phone] Echocardiogram Report + + :Name: CHUNG LUIS Study Date: 05/24/2022 Height: 68 in : :[facility] ReadingLocation: Weight: 187 lb : : Gender: Male BSA: 2.0 m2 : :: 1945 Age: 77 yrs BP: 102/58 mmHg: :Reason For Study: Cardiogenic shock : :Ordering Physician: Norris, : :Alfonso Performed By: Binu Cardoso : :Referring: Alfonso Pisano : + + Interpretation Summary The left ventricle is normal in size and wall thickness. Left ventricular systolic function is normal. The ejection fraction is estimated to be 55-60%. There are no focal wall motion abnormalities. Diastolic parameters suggest a pseudonormalization pattern, consistent with probable elevated filling pressures. The right ventricle is normal in size and function. The right ventricular systolic pressure is estimated to be at least 58 mmHg based on an estimated right atrial pressure of 15 mm Hg. Both atria are normal in size. There is no significant valvular heart disease. The aortic root is normal size. Procedure: A two-dimensional transthoracic echocardiogram with color flow and Doppler was performed. The study quality was technically adequate. There is no prior echocardiogram noted for this patient. The patient was in normal sinus rhythm during the exam. Left Ventricle: The left ventricle is normal in size and wall thickness. Left ventricular systolic function is normal. The ejection fraction is estimated to be 55-60%. There are no focal wall motion abnormalities. Diastolic parameters suggest a pseudonormalization pattern, consistent with probable elevated filling pressures. Right Ventricle: The right ventricle is normal in size and function. Atria: Both atria are normal in size. The interatrial septum grossly appears intact with no obvious evidence for an atrial septal defect. Mitral Valve: There is mild mitral annular calcification. There is trace mitral regurgitation. Aortic Valve: The aortic valve is normal in structure and function. No aortic regurgitation is present. Tricuspid Valve: The tricuspid valve is normal in structure and function. There is mild tricuspid regurgitation. The right ventricular systolic pressure is estimated to be at least 58 mmHg based on an estimated right atrial pressure of 15 mm Hg. Pulmonic Valve: The pulmonic valve is not well visualized. There is no pulmonic valvular regurgitation. There is no significant valvular heart disease. Great Vessels: The aortic root is normal size. The dimensions of the ascending aorta are normal. The IVC is dilated (diameter is greater than 2.1 cm) and it collapses less than 50% with a sniff. This suggests a high right atrial pressure of 15 mm Hg. Pericardium/ Pleura There is no pericardial effusion. There is no pleural effusion. MMode/2D Measurements & Calculations LVIDd: 4.2 cm LVOT diam: 2.1 cm LVIDs: 2.7 cm Ao root diam: 2.9 cm FS: 36.6 % asc Aorta Diam: 3.1 cm IVSd: 1.2 cm LVPWd: 1.1 cm LV cuellar. diameter/BSA (cm/m^2): 2.1 LV sys. diameter/BSA (cm/m^2): 1.3 LA A2 area: 16.7 cm2 RA long axis: 5.1 cm LA A4 area: 19.6 cm2 RA area: 14.8 cm2 LA length (vol): 5.7 cm RA vol: 36.1 ml LA vol: 49.2 ml RA : 18.2 ml/m2 LA vol index: 24.8 ml/m2 IVC diam: 2.2 cm TAPSE: 3.3 cm Doppler Measurements & Calculations Ao V2 max: 137.3 cm/sec LVOT Max Aristides: 92.8 cm/sec Ao V2 mean: 87.1 cm/sec LV V1 max P.4 mmHg Ao max P.5 mmHg LV V1 VTI: 20.8 cm Ao mean P.4 mmHg RAKESH(I,D): 2.4 cm2 Ao V2 VTI: 29.7 cm RAKESH(V,D): 2.4 cm2 sev ratio: 0.70 RAKESH indexed to BSA (cm^2/m^2): 1.2 MV E max aristides: 107.7 cm/sec TR max aristides: 328.7 cm/sec MV A max aristides: 82.9 cm/sec TR max P.2 mmHg MV E/A: 1.3 Med Peak E' Aristides: 6.1 cm/sec E/E' med: 17.6 Lat Peak E' Aristides: 9.1 cm/sec E/E' lat: 11.8 E/e' average: 14.7 MV dec time: 0.19 sec SVLVOT): 72.3 ml Reading Physician:05:37 PM
[2022-05-24] MEDS: NOREPINEPHRINE BITARTRATE/D5W 4 MG/250 ML PLAST..BAG 30 MG IV (12:49)
--- NOTE | 2022-05-24 13:28 | PT-IP ANOTE ---
Per RN, hold PT today. Pt on bi-pap, restless, and not appropriate. Will check back tomorrow.
[2022-05-24 16:03] LABS: Troponin I < 0.012 ng/mL (0.01-0.034)
[2022-05-24] MEDS: MELATONIN 3 MG TABLET 6 MG PO (20:04)
[2022-05-24] MEDS: HALOPERIDOL 5 MG/ML VIAL IV (20:04)
[2022-05-24] MEDS: ATORVASTATIN 20 MG TABLET PO (20:04)
--- NOTE | 2022-05-24 20:49 | PM.ICURNDS ---
- Date Patient Seen: 05/24/22 Time Patient Seen: 20:49 :: This patient was seen via real time interactive two-way audiovisual telecommunication. Note: appears uncomfortable, on HFNC sats 89% unclear response to lasix suggest bipap, sequeira and eval for more diuretics low threshold for intubation please call eICU if condition changes
--- NOTE | 2022-05-24 21:24 | PM.EICU.INT ---
Teleintensivist Intervention Date/Time Was camera activated?: Yes Issue(s) Addressed Issue(s): Stress ulcer prophylaxis and VTE prophylaxis Intervention(s) :: 1) Increased heparin to SUBQ to q8H; 2) Protonix started
--- NOTE | 2022-05-24 22:42 | PC.NURSE ---
Sales Representative Publications Notes-Patient had Bi-pap on but was starting to pull at it, denies pain, asked for something to relax him, Violette and Giuseppe DC'd, IV Haldol given per prn. SpO2 90-92% while on 2L NC briefly, taking sips of water with HOB 45 degrees. Oriented to person, place, and situation. VSS.
[2022-05-25] VITALS (85 sets, daily range): BP systolic 68–178; BP diastolic 35–101; PULSE 74–108; RESP 14–44; TEMP 31–36.9; O2SAT 86–100
[2022-05-25] MEDS: HEPARIN 5,000 UNIT/ML VIAL 5000 UNIT SUBCUT ×2 (05:10→20:49)
[2022-05-25] MEDS: SODIUM CHLORIDE 0.9% FLUSH 10 ML IV ×4 (05:11→22:33)
[2022-05-25 05:37] LABS: Add Manual Diff / Slide Review NO; Basophils Absolute Auto 0 /uL (0-100); Basophils Percent Auto 0.4 % (0-2); Eosinophils Absolute Auto 100 /uL (0-450); Eosinophils Percent Auto 3.6 % (2-4); Hemoglobin 7.2 g/dL (13.5-17.5); Lymphocytes Absolute Auto 500 /uL (1100-4500); Lymphocytes Percent Auto 19.3 % (25-40); Mean Corpuscular HGB Conc 32.7 % (30-36); Mean Corpuscular Volume 91.7 fL (80-100); Monocytes Absolute Auto 300 /uL (0-900); Monocytes Percent Auto 11.3 % (3-14); Neutrophils Absolute Auto 1700 /uL (1500-7000); Neutrophils Percent Auto 65.4 % (50-75); Platelet Count 107 X10^3/uL (150-400); Red Blood Cell Count 2.39 X10^6/uL (4.5-5.9); Red Cell Distribution Width 16.6 % (11.6-14.8); White Blood Cell Count 2.7 X10^3/uL (4.5-11.0)
[2022-05-25 05:38] LABS: Hematocrit 21.9 % (41-53)
[2022-05-25 05:48] LABS: BUN Creatinine Ratio 21.9 (6-22); Blood Urea Nitrogen 44 mg/dL (9-20); Carbon Dioxide 21 mmol/L (22-32); Chloride 117 mmol/L (98-107); Estimated Glomerular Filt Rate 33 mL/min (>60); Glucose 80 mg/dL (80-110); HEMOLYSIS < 15 (0-50); Potassium 4.2 mmol/L (3.4-5.1); Sodium 146 mmol/L (137-145)
--- NOTE | 2022-05-25 06:28 | PC.NURSE ---
Patient slept with BiPap at 0.40 FiO2 until 0600, and started pulling BiPap mask off. O2 9L HF initiaiated with sats at 98% O2 titrated down to 6 L HF. O2 sats 97%. Patient oriented to person, place and year. Spear draining clear, yellow urine with a total of 900 ml this twelve hours.
[2022-05-25] MEDS: CLOPIDOGREL 75 MG TABLET PO (08:27)
[2022-05-25] MEDS: ASPIRIN EC 81 MG TABLET PO (08:28)
[2022-05-25] MEDS: PANTOPRAZOLE 40 MG VIAL IV (08:28)
--- NOTE | 2022-05-25 09:20 | PM.PN.EICU ---
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 currently on 08/12 with TV around 600 m, CXR looked wose today with increasing vascular congestion and Rt pleural effsuionl Current Medications Current Medications Medications: Home Medications atenolol 50 mg tablet 50 mg PO DAILY #90 tabs 05/31/21 [Rx Confirmed 05/22/22] clopidogrel 75 mg tablet (Plavix) 75 mg PO DAILY #90 tabs 05/31/21 [Rx Confirmed 05/22/22] lisinopril 5 mg tablet 5 mg PO DAILY #90 tabs 05/31/21 [Rx Confirmed 05/22/22] albuterol sulfate 90 mcg/actuation aerosol inhaler (ProAir HFA) 1 puff inhalation Q6H PRN shortness of breath or wheezing #8.5 grams 08/30/21 [Rx Confirmed 05/22/22] metformin 1,000 mg tablet 1,000 mg PO BID #180 tabs 12/10/21 [Rx Confirmed 05/22/22] ropinirole 4 mg tablet 8 mg PO BEDTIME #180 tabs 02/18/22 [Rx Confirmed 05/22/22] potassium citrate 10 mEq (1,080 mg) tablet,extended release 10 meq PO TID #270 tabs 03/19/22 [Rx Confirmed 05/22/22] alprazolam 0.5 mg tablet 0.5 mg PO DAILY #1 tab 05/20/22 [Rx Confirmed 05/22/22] amiodarone 200 mg tablet 200 mg PO DAILY 05/22/22 [History Confirmed 05/22/22] furosemide 20 mg tablet 20 mg PO DAILY 05/22/22 [History Confirmed 05/22/22] losartan 50 mg tablet 50 mg PO DAILY 05/22/22 [History Confirmed 05/22/22] metoprolol succinate 25 mg tablet,extended release 24 hr 25 mg PO DAILY 05/22/22 [History Confirmed 05/22/22] Visit Medications (administered) Generic Name Dose Route Start Last Admin Trade Name Freq PRN Reason Stop Dose Admin Acetaminophen 650 mg 05/22/22 18:19 05/23/22 18:20 Acetaminophen 325 Mg Tablet PO 650 mg Q6H PRN Administration Fever/Mild Pain (1-3) Aspirin 81 mg 05/23/22 09:00 05/25/22 08:28 Aspirin Ec 81 Mg Tablet PO 81 mg DAILY MARICARMEN Administration Atorvastatin Calcium 20 mg 05/22/22 21:00 05/24/22 20:04 Atorvastatin 20 Mg Tablet PO 20 mg BEDTIME MARICARMEN Administration Clopidogrel Bisulfate 75 mg 05/23/22 09:00 05/25/22 08:27 Clopidogrel 75 Mg Tablet PO 75 mg DAILY MARICARMEN Administration Haloperidol 5 mg 05/24/22 16:36 05/24/22 20:04 Haloperidol 5 Mg/Ml Vial IV 5 mg Q4HR PRN Administration Agitation Heparin Sodium (Porcine) 50 unit 05/23/22 09:00 05/25/22 08:28 Heparin Flush (Cl/Picc/Mid-Line) 50 Unit/5 Ml Syringe IV 50 unit BID MARICARMEN Administration Heparin Sodium (Porcine) 50 unit 05/23/22 00:03 05/25/22 05:10 Heparin Flush (Cl/Picc/Mid-Line) 50 Unit/5 Ml Syringe IV 50 unit PRN PRN Administration Flush Heparin Sodium (Porcine) 5,000 unit 05/24/22 22:00 05/25/22 05:10 Heparin 5,000 Unit/Ml Vial SUBCUT 5,000 unit Q8HR MARICARMEN Administration Hydromorphone HCl 2 mg 05/22/22 21:51 05/23/22 20:42 Hydromorphone 2 Mg Tablet PO 2 mg Q4HR PRN Administration Pain, Severe (7-10) NOREPINEPHRINE BITARTRATE/D5W 4 mg in 250 mls @ 30 mls/hr 05/24/22 12:41 05/24/22 14:30 Levophed IV 0 mcg/min TITRATE MARICARMEN 0 mls/hr Titration Protocol 8 MCG/MIN Insulin Human Lispro 0 unit 05/22/22 21:00 05/25/22 08:26 Insulin Lispro 100 Unit/Ml 3ml Vial SUBCUT Not Given ACHS MARICARMEN Protocol Melatonin 6 mg 05/22/22 18:13 05/24/22 20:04 Melatonin 3 Mg Tablet PO 6 mg BEDTIME PRN Administration Insomnia Pantoprazole Sodium 40 mg 05/25/22 09:00 05/25/22 08:28 Pantoprazole 40 Mg Vial IV 40 mg DAILY MARICARMEN Administration Sodium Chloride 10 ml 05/23/22 00:03 05/25/22 05:11 Sodium Chloride 0.9% Flush IV 10 ml PRN PRN Administration Flush Sodium Chloride 10 ml 05/23/22 09:00 05/25/22 08:28 Sodium Chloride 0.9% Flush IV 10 ml BID MARICARMEN Administration Objective Labs Result Diagrams: 05/25/22 05:00 05/25/22 05:00 Labs: Laboratory Results - last 24 hr 05/24/22 05/24/22 05/25/22 11:30 15:30 05:00 WBC 2.7 L RBC 2.39 L Hgb 7.2 L Hct 21.9 L MCV 91.7 MCH 30.0 MCHC 32.7 RDW 16.6 H Plt Count 107 L Neut % (Auto) 65.4 Lymph % (Auto) 19.3 L [place] % (Auto) 11.3 Eos % (Auto) 3.6 Baso % (Auto) 0.4 Neut # (Auto) 1700 Lymph # (Auto) 500 L [place] # (Auto) 300 Eos # (Auto) 100 Baso # (Auto) 0 ABG pH 7.33 L ABG pCO2 35.8 ABG pO2 95 ABG HCO3 19 L ABG Total CO2 20 L ABG O2 Saturation 97 ABG Base Excess -7.0 L FiO2 30 Sodium Potassium Chloride Carbon Dioxide BUN Creatinine Estimated GFR BUN/Creatinine Ratio Glucose Calcium Troponin I < 0.012 05/25/22 05:00 WBC RBC Hgb Hct MCV MCH MCHC RDW Plt Count Neut % (Auto) Lymph % (Auto) [place] % (Auto) Eos % (Auto) Baso % (Auto) Neut # (Auto) Lymph # (Auto) [place] # (Auto) Eos # (Auto) Baso # (Auto) ABG pH ABG pCO2 ABG pO2 ABG HCO3 ABG Total CO2 ABG O2 Saturation ABG Base Excess FiO2 Sodium 146 H Potassium 4.2 Chloride 117 H Carbon Dioxide 21 L BUN 44 H Creatinine 2.01 H Estimated GFR 33 L BUN/Creatinine Ratio 21.9 Glucose 80 Calcium 8.0 L Troponin I Exam Vital Signs (past 8 hours): - 05/25/22 01:30 05/25/22 02:00 05/25/22 02:00 Temperature Pulse Rate 76 77 Respiratory Rate 25 H 24 Blood Pressure 94/52 L Pulse Oximetry 99 99 Oxygen Delivery Method Fraction of Inspired Oxygen 05/25/22 02:30 05/25/22 03:00 05/25/22 03:01 Temperature Pulse Rate 75 75 75 Respiratory Rate 19 38 H 21 Blood Pressure Pulse Oximetry 99 98 98 Oxygen Delivery Method Fraction of Inspired Oxygen 05/25/22 03:01 05/25/22 04:00 05/25/22 03:30 Temperature Pulse Rate 74 Respiratory Rate 28 H Blood Pressure 111/54 L Pulse Oximetry 98 Oxygen Delivery Method BiPAP Fraction of Inspired Oxygen 05/25/22 04:00 05/25/22 04:00 05/25/22 04:36 Temperature Pulse Rate 77 Respiratory Rate 21 Blood Pressure 99/56 L 99/56 L Pulse Oximetry 98 Oxygen Delivery Method Fraction of Inspired Oxygen 40 05/25/22 04:30 05/25/22 05:00 05/25/22 05:00 Temperature Pulse Rate 78 75 Respiratory Rate 21 19 Blood Pressure 93/53 L Pulse Oximetry 98 98 Oxygen Delivery Method Fraction of Inspired Oxygen 05/25/22 07:00 05/25/22 05:30 05/25/22 06:00 Temperature 98.5 F Pulse Rate 76 96 H Respiratory Rate 22 32 H Blood Pressure Pulse Oximetry 99 99 Oxygen Delivery Method Fraction of Inspired Oxygen 05/25/22 06:30 05/25/22 07:00 05/25/22 07:00 Temperature Pulse Rate 95 H 84 Respiratory Rate 24 29 H Blood Pressure 115/58 L Pulse Oximetry 97 100 Oxygen Delivery Method Fraction of Inspired Oxygen 05/25/22 07:30 Temperature Pulse Rate 100 H Respiratory Rate 28 H Blood Pressure Pulse Oximetry 96 Oxygen Delivery Method Fraction of Inspired Oxygen Fraction of Inspired Oxygen 40 Oxygen Delivery Method BiPAP Oxygen Flow Rate 2 Quality TeleICU VTE Deep Vein Thrombosis/Pulmonary Embolism Present on Admission: No Assessment & Plan Assessment & Plan narrative: 77 year old male admitedt o ICU for septic shock 2/2 to UTI, infected stent ( resolved) afib rvr acute renal failure acute hypoxic resp failure 2/2 fluid overload H/o of CAD s/p stentx 2 on 04/18 currently afebirle, HD stable/hypertensive SBP 165 On BiPAP14/5 with TV around 600 ml mental status intact cxr pulmonary edmea with Rt sided pleural effusion HB dropped to 7.2, no BM for last 2 days 2 D echo yesterday RV and LV function un remarkable, IVC dilated and not collapsable Mild hypernatemia Pancytopenia Recommended -lasix 60 mg iv Q8H with metolazone 10 mg daily, de escalate when goal achieved 2 L negative -bipap to keep sat above 92% - Continue Dual AP - CBC Q12hr, transfuse PRBC for HB <7 - Reduce heparin to bid SC 5000 iu for DVT ppx - Switch protonix to H2B for pancytopenia -chest pt/oob as tolerated pt/ot/IS -monitor ins/outs -replace lytes prn -keep glucose 1040 -diet as tolerated -please call eICU if condition changes - Code status DNR/DNI ( confirmed with the ) - Discussed my recommendation with the and ICU team (MD,RN and pharmacist) Total CCm time 45 mins Time Spent With Patie Time Spent With Patient Critical Care time: I spent a total of [] minutes of critical care time on this patient's care today; this time is exclusive of procedural time.
--- NOTE | 2022-05-25 09:24 | DI.RAD.S_ITS ---
PROCEDURE: XR CHEST 1V INDICATIONS: sob TECHNIQUE: One view of the chest was acquired. COMPARISON: [facility], CT, CT CHEST WO CON, 05/22/2022, 15:31. [facility], CR, XR CHEST 1V, 05/24/2022, 10:44. [facility], CR, XR CHEST 1V, 05/23/2022, 21:23. FINDINGS: Surgical changes and devices: Right IJ central venous line with the catheter tip at the proximal right atrium. Lungs and pleura: Low lung volumes. Mild hazy opacity in the right lung. No pleural effusions or pneumothorax. Mediastinum: Mediastinal contours appear normal. Heart size is normal. Bones and chest wall: No suspicious bony lesions. Overlying soft tissues appear unremarkable. IMPRESSION: Mild hazy opacity in the right lung. Suspect atelectasis. Low lung volumes. Dictated by: Bharat Hernandez M.D. on 05/25/2022 at 8:51 Approved by: Bharat Hernandez M.D. on 05/25/2022 at 8:53
[2022-05-25] MEDS: HALOPERIDOL 5 MG/ML VIAL IV (09:50)
[2022-05-25] MEDS: FUROSEMIDE 100 MG/10 ML VIAL 60 MG IV ×2 (09:51→17:48)
[2022-05-25] MEDS: PIPERACILLIN/TAZO 3.375 GM in SODIUM CHLORIDE 0.9% 100 ML IV ×2 (10:32→17:39)
[2022-05-25] MEDS: FAMOTIDINE 20 MG/2 ML VIAL IV (10:32)
--- NOTE | 2022-05-25 11:05 | CM.DPNOTE ---
DCP Note Patient discussed in multidisciplinary rounds this morning. Patient with multiple co-morbidities, acute resp failure on Bipap, prognosis guarded. Supportive spouse at bedside confirms DNR/DNI code CM team will continue to follow closely JW
--- NOTE | 2022-05-25 11:11 | PT-IP ANOTE ---
Per rounds, pt not medically stable to be seen by PT today. Hypertensive and low H&H.
[2022-05-25 11:37] LABS: NT-proBNP (BNP-Adult 18+) 4390 pg/mL (<450)
--- NOTE | 2022-05-25 16:57 | P.PN_ITS ---
Subjective Subjective Date Patient Seen: 05/25/22 Time Patient Seen: 08:00 Interval history: He was on BIPAP overnight and this morning was able to come off for only a brief period of time. Within a few hours he was noted to be more agitated, hypoxic and short of breath. Labs showed increasing BNP, chest xray showed pulmonary vascular congestion. He was placed back on BIPAP, his antibiotics broadened to zosyn and he was given a dose of lasix. Exam Vital Signs (past 8 hours): - 05/25/22 09:00 05/25/22 09:01 05/25/22 09:01 Temperature Pulse Rate 107 H 108 H Respiratory Rate 40 H 39 H Blood Pressure 165/91 H Pulse Oximetry 96 96 Oxygen Delivery Method Fraction of Inspired Oxygen 05/25/22 09:30 05/25/22 10:00 05/25/22 10:01 Temperature Pulse Rate 97 H 85 84 Respiratory Rate 14 15 15 Blood Pressure Pulse Oximetry 96 98 98 Oxygen Delivery Method Fraction of Inspired Oxygen 05/25/22 10:01 05/25/22 10:30 05/25/22 11:00 Temperature Pulse Rate 81 Respiratory Rate 17 Blood Pressure 91/50 L 89/55 L Pulse Oximetry 98 Oxygen Delivery Method Fraction of Inspired Oxygen 05/25/22 11:00 05/25/22 12:00 05/25/22 11:30 Temperature Pulse Rate 80 78 Respiratory Rate 19 21 Blood Pressure Pulse Oximetry 92 99 Oxygen Delivery Method BiPAP Fraction of Inspired Oxygen 05/25/22 12:00 05/25/22 12:00 05/25/22 12:30 Temperature Pulse Rate 87 80 Respiratory Rate 21 21 Blood Pressure 99/64 Pulse Oximetry 99 99 Oxygen Delivery Method Fraction of Inspired Oxygen 05/25/22 13:00 05/25/22 13:00 05/25/22 13:10 Temperature 97.3 F L Pulse Rate 79 Respiratory Rate 23 Blood Pressure 106/88 Pulse Oximetry 99 Oxygen Delivery Method Fraction of Inspired Oxygen 05/25/22 13:30 05/25/22 14:00 05/25/22 14:00 Temperature Pulse Rate 81 82 Respiratory Rate 25 H 22 Blood Pressure 108/71 Pulse Oximetry 99 98 Oxygen Delivery Method Fraction of Inspired Oxygen 05/25/22 11:30 05/25/22 15:08 05/25/22 14:41 Temperature Pulse Rate Respiratory Rate Blood Pressure 109/54 L 108/71 Pulse Oximetry Oxygen Delivery Method Fraction of Inspired Oxygen 40 38 05/25/22 14:30 05/25/22 15:00 05/25/22 15:04 Temperature Pulse Rate 80 84 84 Respiratory Rate 29 H 30 H 20 Blood Pressure Pulse Oximetry 99 100 100 Oxygen Delivery Method Fraction of Inspired Oxygen 05/25/22 15:04 05/25/22 15:06 05/25/22 15:06 Temperature Pulse Rate 90 Respiratory Rate 32 H Blood Pressure 68/35 L 109/54 L Pulse Oximetry 99 Oxygen Delivery Method Fraction of Inspired Oxygen 05/25/22 15:30 05/25/22 15:30 05/25/22 15:33 Temperature Pulse Rate 81 Respiratory Rate 18 Blood Pressure 81/50 L 88/48 L Pulse Oximetry 100 Oxygen Delivery Method Fraction of Inspired Oxygen 05/25/22 15:33 05/25/22 15:49 05/25/22 15:49 Temperature Pulse Rate 86 79 Respiratory Rate 20 29 H Blood Pressure 110/57 L Pulse Oximetry 100 100 Oxygen Delivery Method Fraction of Inspired Oxygen 05/25/22 16:00 Temperature Pulse Rate Respiratory Rate Blood Pressure Pulse Oximetry Oxygen Delivery Method BiPAP Fraction of Inspired Oxygen Fraction of Inspired Oxygen 38 Oxygen Delivery Method BiPAP Oxygen Flow Rate 2 Narrative Exam Narrative: GEN: altered, ill appearing, in respiratory distress CV: tachycardic, no murmurs PULM: scattered wheezes with crackles and coarse breath sounds with s ignificantly increased work of breathing ABD: soft, nontender, nondistended, no organomegaly EXT: warm and well perfused with no edema Objective Labs Result Diagrams: 05/25/22 05:00 05/25/22 05:00 Labs: Laboratory Results - last 24 hr 05/25/22 05/25/22 05/25/22 05:00 05:00 05:00 WBC 2.7 L RBC 2.39 L Hgb 7.2 L Hct 21.9 L MCV 91.7 MCH 30.0 MCHC 32.7 RDW 16.6 H Plt Count 107 L Neut % (Auto) 65.4 Lymph % (Auto) 19.3 L [place] % (Auto) 11.3 Eos % (Auto) 3.6 Baso % (Auto) 0.4 Neut # (Auto) 1700 Lymph # (Auto) 500 L [place] # (Auto) 300 Eos # (Auto) 100 Baso # (Auto) 0 Sodium 146 H Potassium 4.2 Chloride 117 H Carbon Dioxide 21 L BUN 44 H Creatinine 2.01 H Estimated GFR 33 L BUN/Creatinine Ratio 21.9 Glucose 80 Calcium 8.0 L NT-Pro-B Natriuret Pep Blood Type A Positive Antibody Screen Negative 05/25/22 05:26 WBC RBC Hgb Hct MCV MCH MCHC RDW Plt Count Neut % (Auto) Lymph % (Auto) [place] % (Auto) Eos % (Auto) Baso % (Auto) Neut # (Auto) Lymph # (Auto) [place] # (Auto) Eos # (Auto) Baso # (Auto) Sodium Potassium Chloride Carbon Dioxide BUN Creatinine Estimated GFR BUN/Creatinine Ratio Glucose Calcium NT-Pro-B Natriuret Pep 4390 H Blood Type Antibody Screen [facility] Medical History (Updated 05/23/22 @ 03:34 by JANETH Timmons-JORDAN) Anticoagulated on heparin Arthritis Bilateral nephrolithiasis Lvlydbk-Qyzum-Arnnw disease Colon cancer Diabetes mellitus treated with oral medication Hernia History of non-ST elevation myocardial infarction (NSTEMI) History of renal calculi Hypertension, essential Mixed hyperlipidemia Peripheral vascular disease of extremity Sleep apnea in adult Surgical History (Updated 05/23/22 @ 03:34 by JARED Timmons) History of heart artery stent Hx of cystoscopy (10/16/21) Hx of cystoscopy (12/03/21) Hx of cystoscopy (03/25/22) S/P ureteral stent placement Status post colectomy (~1995) Status post vascular bypass Family History Father Ulcer History of blood clots Mother No known problems Social History marital status: household members: spouse lives independently: Yes occupational status: other Smoking Status: Former smoker alcohol intake: current substance use type: does not use Type(s) of exercise: bicycling frequency: 1-2 times per week Assessment & Plan Assessment & Plan narrative: 1. Acute respiratory failure, acute, chronic left diaphragmatic paralysis, recent NSTEMI, with heart stents x2, and likely new Dx of CHF exacerbation, by elevated BNP present on admission -tachypneic respiratory rates 25-31, O2 saturations reported below 90% on room air in ED. -continue bipap -wean O2 as able -echo with preserved EF -ABG with resolved hypercapnia -recs per tele ICU 2. [place] secondary to urinary retention with recent stent removal, improving - status post cystoscopy/right ureteroscopic laser lithotripsy/and right ure teral stent exchange on 04/15/2022.? 04/17/2022 admit for sepsis with septic shock, acute resp failure with Enterobacter urosepsis and myocardial infarction, 05/21/2022 right ureteral stent removal by Dr. Cowan. - initial potassium 6.1, bicarb 13, BUN 83, creatinine 4.42, blood sugar 72, GFR 13. Calcium 7.2. Repeat labs potassium 5.6, creatinine 3.63, GFR 16, calcium 8.1, -corrected calcium 7.36. Labs from 04/18/2022 BUN 21, creatinine 1.34, GFR 55. -Renal ultrasound normal kidneys, without hydronephrosis, nonobstructing right renal calculi -continue sequeira and may need outpatient urology f/u 3. Shock, unclear etiology, resolved -sofa score: 8, initial hypotensive blood pressures in ED 80/62, 87/46, 74/39, tachypneic respiratory rates 25-31, O2 saturations reported below 90% on room air. -initially in ED patient was placed on 2 L nasal cannula, sepsis fluid bundle provided, Rocephin, and started on Levophed drip. -blood and urine cultures negative, however was recently on abx for uti so continue abx for now with zosyn -able to wean off levophed -EF obtained and showed preserved EF -hemoglobin continues to slowly downtrend, possibly contributor to low blood pressure 4. Ground level fall resulting in right chest wall and right eye contusion, secondary to both acute and chronic illness and Nyefdvm-Olsdu-Ursrh dz with related chronic muscular deconditioning/weakness -Monitor for bleeding. -C-spine CT: no fractures -Head CT negative for any intracranial hemorrhages, right periorbital soft tissue swelling without associated regional fracture -Face CT negative for fracture noted right periorbital soft tissue swelling -Abdomen pelvis CT no fractures noted. -pain management -PT/OT consult -recommend follow-up with PCP for bone density testing. 5. Recent NSTEMI (04/17/2022) with coronary artery stent placement x2, in the setting of elevated BNP -Troponins negative x2 -due to hypotensive cardiogenic shock holding oral Lasix, lisinopril, losartan, metoprolol, amiodarone, atenolol -continue patient's Plavix, ASA -troponins negative 6. Worsening anemia -patient did experience multiple ground level falls and is on aspirin and plavix -no evidence of gi bleeding -send tyep and screen -transfuse for hemoglobin <7 -will continue to trend H&H and monitor for bleeding -hold heparin if further drop in hemoglobin 7. Restless leg syndrome, chronic, present on admission -hold Requip Time Spent With Patient Critical Care time: I spent a total of [] minutes of critical care time on this patient's care today; this time is exclusive of procedural time. Quality VTE Deep Vein Thrombosis/Pulmonary Embolism Present on Admission: No
[2022-05-25 17:05] LABS: Hematocrit 23.7 % (41-53); Hemoglobin 7.9 g/dL (13.5-17.5); Mean Corpuscular HGB Conc 33.3 % (30-36); Mean Corpuscular Hemoglobin 30.6 PG (26-34); Mean Corpuscular Volume 91.9 fL (80-100); Platelet Count 132 X10^3/uL (150-400); Red Blood Cell Count 2.58 X10^6/uL (4.5-5.9); Red Cell Distribution Width 16.4 % (11.6-14.8); White Blood Cell Count 3.2 X10^3/uL (4.5-11.0)
[2022-05-25 17:27] LABS: BUN Creatinine Ratio 20.4 (6-22); Blood Urea Nitrogen 39 mg/dL (9-20); Calcium 8.4 mg/dL (8.4-10.2); Carbon Dioxide 20 mmol/L (22-32); Chloride 113 mmol/L (98-107); Estimated Glomerular Filt Rate 35 mL/min (>60); Glucose 85 mg/dL (80-110); HEMOLYSIS < 15 (0-50); Magnesium 1.5 mg/dL (1.6-2.3); Potassium 4.3 mmol/L (3.4-5.1); Sodium 145 mmol/L (137-145)
--- NOTE | 2022-05-25 20:11 | PM.ICURNDS ---
- Date Patient Seen: 05/25/22 Time Patient Seen: 20:11 :: This patient was seen via real time interactive two-way audiovisual telecommunication. Note: Patient seen with bedside RN. He is currently on 6L of O2 via face-mask, satting 100% and breathing comfortably. Speaking in full sentences. He reports he is feeling well. BP is WNL. Continues on IV Lasix, urinating well. About net neg 2.4 L. BiPAP on standby at bedside, discussed that if he develops any difficulty breathing overnight this will need to be placed back on. Tomorrow, can likely consider reducing Lasix dosing. On Zosyn - presumably empiric pneumonia coverage, remains afebrile. Noted Mg level slightly low @ 1.5 but bedside team prefers to recheck and consider repletion tomorrow. Continue to monitor electrolytes closely given aggressive diuresis. Recommended re-contact if any change in status.
[2022-05-25] MEDS: ATORVASTATIN 20 MG TABLET PO (20:47)
[2022-05-25] MEDS: MELATONIN 3 MG TABLET 6 MG PO (22:33)
[2022-05-25] MEDS: GABAPENTIN 100 MG CAPSULE PO (23:57)
[2022-05-26] VITALS (84 sets, daily range): BP systolic 70–160; BP diastolic 41–127; PULSE 72–102; RESP 15–50; TEMP 36.2–36.3; O2SAT 78–100
[2022-05-26] MEDS: FUROSEMIDE 100 MG/10 ML VIAL 60 MG IV ×2 (01:43→07:25)
[2022-05-26] MEDS: PIPERACILLIN/TAZO 3.375 GM in SODIUM CHLORIDE 0.9% 100 ML IV ×3 (01:43→17:53)
[2022-05-26] MEDS: SODIUM CHLORIDE 0.9% FLUSH 10 ML IV ×3 (01:44→20:28)
--- NOTE | 2022-05-26 03:37 | PC.NURSE ---
02 decreased to 4L at 0240 and sats has remain at 100%.
[2022-05-26 05:23] LABS: Add Manual Diff / Slide Review NO; Basophils Absolute Auto 0 /uL (0-100); Basophils Percent Auto 0.6 % (0-2); Eosinophils Absolute Auto 100 /uL (0-450); Hematocrit 23.5 % (41-53); Lymphocytes Absolute Auto 600 /uL (1100-4500); Lymphocytes Percent Auto 19.7 % (25-40); Mean Corpuscular HGB Conc 33.9 % (30-36); Mean Corpuscular Hemoglobin 30.6 PG (26-34); Mean Corpuscular Volume 90.3 fL (80-100); Monocytes Absolute Auto 400 /uL (0-900); Monocytes Percent Auto 11.9 % (3-14); Neutrophils Absolute Auto 2100 /uL (1500-7000); Neutrophils Percent Auto 63.8 % (50-75); Platelet Count 134 X10^3/uL (150-400); Red Blood Cell Count 2.61 X10^6/uL (4.5-5.9); Red Cell Distribution Width 15.9 % (11.6-14.8); White Blood Cell Count 3.2 X10^3/uL (4.5-11.0)
[2022-05-26 05:38] LABS: BUN Creatinine Ratio 17.8 (6-22); Blood Urea Nitrogen 36 mg/dL (9-20); Calcium 8.6 mg/dL (8.4-10.2); Carbon Dioxide 24 mmol/L (22-32); Chloride 107 mmol/L (98-107); Estimated Glomerular Filt Rate 33 mL/min (>60); Glucose 80 mg/dL (80-110); HEMOLYSIS < 15 (0-50); Magnesium 1.3 mg/dL (1.6-2.3); Potassium 3.6 mmol/L (3.4-5.1); Sodium 143 mmol/L (137-145)
[2022-05-26] MEDS: MAGNESIUM SULFATE 2 GM/50 ML PIGGYBACK IV (07:15)
[2022-05-26] MEDS: CLOPIDOGREL 75 MG TABLET PO (08:39)
[2022-05-26] MEDS: FAMOTIDINE 20 MG/2 ML VIAL IV (08:39)
[2022-05-26] MEDS: ASPIRIN EC 81 MG TABLET PO (08:39)
[2022-05-26] MEDS: HEPARIN 5,000 UNIT/ML VIAL 5000 UNIT SUBCUT ×2 (08:39→20:27)
--- NOTE | 2022-05-26 09:40 | P.TELICUPN_ITS ---
Subjective Subjective IF CAMERA ACTIVATED, patient seen via real-time interactive audiovisual communication: Camera activated Consent obtained for tele-executive chef assistant care: Yes Patient Location: ICU Provider location (State): [place] Other participants/roles: RN and Dr. Martinez Interval history: Responded well to lasix 60 mg. Net negative 2.4 liters over the last 24 hours. Soft BP but never requires pressor. Subjectively patient reports feeling better overall. Denies chest pain, N/V, fever/chills, or abdominal pain. Current Medications Current Medications Medications: Home Medications atenolol 50 mg tablet 50 mg PO DAILY #90 tabs 05/31/21 [Rx Confirmed 05/22/22] clopidogrel 75 mg tablet (Plavix) 75 mg PO DAILY #90 tabs 05/31/21 [Rx Confirmed 05/22/22] lisinopril 5 mg tablet 5 mg PO DAILY #90 tabs 05/31/21 [Rx Confirmed 05/22/22] albuterol sulfate 90 mcg/actuation aerosol inhaler (ProAir HFA) 1 puff inhalation Q6H PRN shortness of breath or wheezing #8.5 grams 08/30/21 [Rx Confirmed 05/22/22] metformin 1,000 mg tablet 1,000 mg PO BID #180 tabs 12/10/21 [Rx Confirmed 04/28 01/16] ropinirole 4 mg tablet 8 mg PO BEDTIME #180 tabs 02/18/22 [Rx Confirmed 05/22/22] potassium citrate 10 mEq (1,080 mg) tablet,extended release 10 meq PO TID #270 tabs 03/19/22 [Rx Confirmed 05/22/22] alprazolam 0.5 mg tablet 0.5 mg PO DAILY #1 tab 05/20/22 [Rx Confirmed 05/22/22] amiodarone 200 mg tablet 200 mg PO DAILY 05/22/22 [History Confirmed 05/22/22] furosemide 20 mg tablet 20 mg PO DAILY 05/22/22 [History Confirmed 05/22/22] losartan 50 mg tablet 50 mg PO DAILY 05/22/22 [History Confirmed 05/22/22] metoprolol succinate 25 mg tablet,extended release 24 hr 25 mg PO DAILY 05/22/22 [History Confirmed 05/22/22] Visit Medications (administered) Generic Name Dose Route Start Last Admin Trade Name Freq PRN Reason Stop Dose Admin Acetaminophen 650 mg 05/22/22 18:19 05/23/22 18:20 Acetaminophen 325 Mg Tablet PO 650 mg Q6H PRN Administration Fever/Mild Pain (1-3) Aspirin 81 mg 05/23/22 09:00 05/26/22 08:39 Aspirin Ec 81 Mg Tablet PO 81 mg DAILY MARICARMEN Administration Atorvastatin Calcium 20 mg 05/22/22 21:00 05/25/22 20:47 Atorvastatin 20 Mg Tablet PO 20 mg BEDTIME MARICARMEN Administration Clopidogrel Bisulfate 75 mg 05/23/22 09:00 05/26/22 08:39 Clopidogrel 75 Mg Tablet PO 75 mg DAILY MARICARMEN Administration Famotidine 20 mg 05/26/22 09:00 05/26/22 08:39 Famotidine 20 Mg/2 Ml Vial IV 20 mg DAILY MARICARMEN Administration Furosemide 60 mg 05/26/22 07:00 05/26/22 07:25 Furosemide 100 Mg/10 Ml Vial IV 60 mg Q12H MARICARMNE Administration Haloperidol 5 mg 05/24/22 16:36 05/25/22 09:50 Haloperidol 5 Mg/Ml Vial IV 5 mg Q4HR PRN Administration Agitation Heparin Sodium (Porcine) 50 unit 05/23/22 09:00 05/26/22 08:39 Heparin Flush (Cl/Picc/Mid-Line) 50 Unit/5 Ml Syringe IV 50 unit BID MARICARMEN Administration Heparin Sodium (Porcine) 50 unit 05/23/22 00:03 05/25/22 05:10 Heparin Flush (Cl/Picc/Mid-Line) 50 Unit/5 Ml Syringe IV 50 unit PRN PRN Administration Flush Heparin Sodium (Porcine) 5,000 unit 05/25/22 21:00 05/26/22 08:39 Heparin 5,000 Unit/Ml Vial SUBCUT 5,000 unit BID MARICARMEN Administration Hydromorphone HCl 2 mg 05/22/22 21:51 05/23/22 20:42 Hydromorphone 2 Mg Tablet PO 2 mg Q4HR PRN Administration Pain, Severe (7-10) NOREPINEPHRINE BITARTRATE/D5W 4 mg in 250 mls @ 30 mls/hr 05/24/22 12:41 05/24/22 14:30 Levophed IV 0 mcg/min TITRATE MARICARMEN 0 mls/hr Titration Protocol 8 MCG/MIN Piperacillin Sod/Tazobactam 100 mls @ 25 mls/hr 05/25/22 09:45 05/26/22 09:33 Sod 3.375 gm/ Sodium Chloride IV 25 mls/hr Q8H MARICARMEN Administration Insulin Human Lispro 0 unit 05/22/22 21:00 05/26/22 07:44 Insulin Lispro 100 Unit/Ml 3ml Vial SUBCUT Not Given ACHS MARICARMEN Protocol Melatonin 6 mg 05/22/22 18:13 05/25/22 22:33 Melatonin 3 Mg Tablet PO 6 mg BEDTIME PRN Administration Insomnia Ropinirole HCl 4 mg 05/25/22 23:30 05/25/22 23:57 Ropinirole 4 Mg Tablet PO Not Given BEDTIME MARICARMEN Sodium Chloride 10 ml 05/23/22 00:03 05/26/22 01:44 Sodium Chloride 0.9% Flush IV 10 ml PRN PRN Administration Flush Sodium Chloride 10 ml 05/23/22 09:00 05/26/22 08:40 Sodium Chloride 0.9% Flush IV 10 ml BID MARICARMEN Administration Objective Labs Result Diagrams: 05/26/22 05:05 05/26/22 05:05 Labs: Laboratory Results - last 24 hr 05/25/22 05/25/22 05/25/22 05:00 05:26 16:45 WBC 3.2 L RBC 2.58 L Hgb 7.9 L Hct 23.7 L MCV 91.9 MCH 30.6 MCHC 33.3 RDW 16.4 H Plt Count 132 L Neut % (Auto) Lymph % (Auto) [place] % (Auto) Eos % (Auto) Baso % (Auto) Neut # (Auto) Lymph # (Auto) [place] # (Auto) Eos # (Auto) Baso # (Auto) Sodium Potassium Chloride Carbon Dioxide BUN Creatinine Estimated GFR BUN/Creatinine Ratio Glucose Calcium Magnesium NT-Pro-B Natriuret Pep 4390 H Blood Type A Positive Antibody Screen Negative 05/25/22 05/26/22 05/26/22 16:45 05:05 05:05 WBC 3.2 L RBC 2.61 L Hgb 8.0 L Hct 23.5 L MCV 90.3 MCH 30.6 MCHC 33.9 RDW 15.9 H Plt Count 134 L Neut % (Auto) 63.8 Lymph % (Auto) 19.7 L [place] % (Auto) 11.9 Eos % (Auto) 4.0 Baso % (Auto) 0.6 Neut # (Auto) 2100 Lymph # (Auto) 600 L [place] # (Auto) 400 Eos # (Auto) 100 Baso # (Auto) 0 Sodium 145 143 Potassium 4.3 3.6 Chloride 113 H 107 Carbon Dioxide 20 L 24 BUN 39 H 36 H Creatinine 1.91 H 2.02 H Estimated GFR 35 L 33 L BUN/Creatinine Ratio 20.4 17.8 Glucose 85 80 Calcium 8.4 8.6 Magnesium 1.5 L NT-Pro-B Natriuret Pep Blood Type Antibody Screen 05/26/22 05:05 WBC RBC Hgb Hct MCV MCH MCHC RDW Plt Count Neut % (Auto) Lymph % (Auto) [place] % (Auto) Eos % (Auto) Baso % (Auto) Neut # (Auto) Lymph # (Auto) [place] # (Auto) Eos # (Auto) Baso # (Auto) Sodium Potassium Chloride Carbon Dioxide BUN Creatinine Estimated GFR BUN/Creatinine Ratio Glucose Calcium Magnesium 1.3 L NT-Pro-B Natriuret Pep Blood Type Antibody Screen Exam Vital Signs (past 8 hours): - 05/26/22 01:45 05/26/22 02:00 05/26/22 02:00 Pulse Rate 79 80 Respiratory Rate 16 Blood Pressure 107/63 Pulse Oximetry 99 100 Oxygen Delivery Method Oxygen Flow Rate 05/26/22 02:15 05/26/22 02:30 05/26/22 02:45 Pulse Rate 75 78 77 Respiratory Rate 15 17 15 Blood Pressure Pulse Oximetry 100 100 100 Oxygen Delivery Method Oxygen Flow Rate 05/26/22 03:00 05/26/22 03:00 05/26/22 03:15 Pulse Rate 79 78 Respiratory Rate 17 17 Blood Pressure 96/53 L Pulse Oximetry 99 100 Oxygen Delivery Method Oxygen Flow Rate 05/26/22 03:30 05/26/22 03:45 05/26/22 04:00 Pulse Rate 79 79 Respiratory Rate 17 18 Blood Pressure 99/56 L Pulse Oximetry 100 100 Oxygen Delivery Method Oxygen Flow Rate 05/26/22 04:00 05/26/22 04:15 05/26/22 04:30 Pulse Rate 76 75 78 Respiratory Rate 16 15 17 Blood Pressure Pulse Oximetry 98 98 98 Oxygen Delivery Method Oxygen Flow Rate 05/26/22 05:00 05/26/22 04:45 05/26/22 05:00 Pulse Rate 78 75 Respiratory Rate 17 16 Blood Pressure Pulse Oximetry 94 94 Oxygen Delivery Method Oximask Oxygen Flow Rate 05/26/22 05:01 05/26/22 05:01 05/26/22 05:02 Pulse Rate 78 Respiratory Rate 17 Blood Pressure 72/44 L 106/57 L Pulse Oximetry 94 Oxygen Delivery Method Oxygen Flow Rate 05/26/22 05:02 05/26/22 05:15 05/26/22 05:30 Pulse Rate 78 75 75 Respiratory Rate 18 16 16 Blood Pressure Pulse Oximetry 97 99 99 Oxygen Delivery Method Oxygen Flow Rate 05/26/22 05:45 05/26/22 06:00 05/26/22 06:00 Pulse Rate 72 74 Respiratory Rate 15 16 Blood Pressure 115/56 L Pulse Oximetry 100 100 Oxygen Delivery Method Oxygen Flow Rate 05/26/22 06:15 05/26/22 02:40 05/26/22 06:30 Pulse Rate 74 76 Respiratory Rate 17 31 H Blood Pressure Pulse Oximetry 100 100 100 Oxygen Delivery Method Oxygen Flow Rate 4 05/26/22 06:45 05/26/22 07:00 05/26/22 07:01 Pulse Rate 75 75 74 Respiratory Rate 17 16 16 Blood Pressure Pulse Oximetry 100 100 100 Oxygen Delivery Method Oxygen Flow Rate 05/26/22 07:01 05/26/22 07:15 05/26/22 07:30 Pulse Rate 76 75 Respiratory Rate 16 15 Blood Pressure 93/55 L Pulse Oximetry 100 100 Oxygen Delivery Method Oxygen Flow Rate 05/26/22 07:45 05/26/22 07:45 05/26/22 08:00 Pulse Rate 76 Respiratory Rate 16 Blood Pressure 105/53 L 87/52 L Pulse Oximetry 99 Oxygen Delivery Method Oxygen Flow Rate 05/26/22 08:00 05/26/22 07:00 05/26/22 08:00 Pulse Rate 79 79 Respiratory Rate 21 Blood Pressure 93/55 L Pulse Oximetry 100 Oxygen Delivery Method Oxygen Flow Rate Fraction of Inspired Oxygen 38 Oxygen Delivery Method Oximask Oxygen Flow Rate 4 Quality TeleICU VTE Deep Vein Thrombosis/Pulmonary Embolism Present on Admission: No Assessment & Plan Assessment & Plan narrative: NEURO: # Deconditon -- Seek PT/OT and OOB as tolerated RESP: # Acute hypoxemia respiratory failure -- Off BiPAP -- On 1 liter NC -- Secondary to pulmonary edema -- Appears to be reaching euvolemia -- Recommend decreasing lasix -- HOB elevation -- Aspiration precaution -- Goal SpO2 > 88% CVS: # Hypotension -- Hold off restarting home BP meds -- MAP goal > 65 # HFpEF -- Cont gentle diuresis to avoid net positive fluid balance -- Strict I/O -- Low Na diet # Hx of CAD -- s/p PCI 03/2022 -- On ASA/plavix/lipitor : # CALIXTO on CKD -- Secondary to renal venous congestion and sepsis -- Avoid nephrotoxin agents -- Daily BMP -- Monitor UOP ID: # Sepsis -- Cx negative to date -- On zosyn -- Follow up cx data ENDO: -- GOal BS < 180 D/w RN and hospitalist at bedside. Time Spent With Patient Critical Care time: I spent a total of 32 minutes of critical care time on this patient's care today; this time is exclusive of procedural time.
--- NOTE | 2022-05-26 10:09 | P.PN_ITS ---
Subjective Subjective Date Patient Seen: 05/26/22 Time Patient Seen: 08:00 Interval history: Today he says he is feeling improved. He has no significant pain. His shortness of breath is improving. He did not require BIPAP for most of the night. Exam Vital Signs (past 8 hours): - 05/26/22 02:15 05/26/22 02:30 05/26/22 02:45 Pulse Rate 75 78 77 Respiratory Rate 15 17 15 Blood Pressure Pulse Oximetry 100 100 100 Oxygen Delivery Method Oxygen Flow Rate 05/26/22 03:00 05/26/22 03:00 05/26/22 03:15 Pulse Rate 79 78 Respiratory Rate 17 17 Blood Pressure 96/53 L Pulse Oximetry 99 100 Oxygen Delivery Method Oxygen Flow Rate 05/26/22 03:30 05/26/22 03:45 05/26/22 04:00 Pulse Rate 79 79 Respiratory Rate 17 18 Blood Pressure 99/56 L Pulse Oximetry 100 100 Oxygen Delivery Method Oxygen Flow Rate 05/26/22 04:00 05/26/22 04:15 05/26/22 04:30 Pulse Rate 76 75 78 Respiratory Rate 16 15 17 Blood Pressure Pulse Oximetry 98 98 98 Oxygen Delivery Method Oxygen Flow Rate 05/26/22 05:00 05/26/22 04:45 05/26/22 05:00 Pulse Rate 78 75 Respiratory Rate 17 16 Blood Pressure Pulse Oximetry 94 94 Oxygen Delivery Method Oximask Oxygen Flow Rate 05/26/22 05:01 05/26/22 05:01 05/26/22 05:02 Pulse Rate 78 Respiratory Rate 17 Blood Pressure 72/44 L 106/57 L Pulse Oximetry 94 Oxygen Delivery Method Oxygen Flow Rate 05/26/22 05:02 05/26/22 05:15 05/26/22 05:30 Pulse Rate 78 75 75 Respiratory Rate 18 16 16 Blood Pressure Pulse Oximetry 97 99 99 Oxygen Delivery Method Oxygen Flow Rate 05/26/22 05:45 05/26/22 06:00 05/26/22 06:00 Pulse Rate 72 74 Respiratory Rate 15 16 Blood Pressure 115/56 L Pulse Oximetry 100 100 Oxygen Delivery Method Oxygen Flow Rate 05/26/22 06:15 05/26/22 02:40 05/26/22 06:30 Pulse Rate 74 76 Respiratory Rate 17 31 H Blood Pressure Pulse Oximetry 100 100 100 Oxygen Delivery Method Oxygen Flow Rate 4 05/26/22 06:45 05/26/22 07:00 05/26/22 07:01 Pulse Rate 75 75 74 Respiratory Rate 17 16 16 Blood Pressure Pulse Oximetry 100 100 100 Oxygen Delivery Method Oxygen Flow Rate 05/26/22 07:01 05/26/22 07:15 05/26/22 07:30 Pulse Rate 76 75 Respiratory Rate 16 15 Blood Pressure 93/55 L Pulse Oximetry 100 100 Oxygen Delivery Method Oxygen Flow Rate 05/26/22 07:45 05/26/22 07:45 05/26/22 08:00 Pulse Rate 76 Respiratory Rate 16 Blood Pressure 105/53 L 87/52 L Pulse Oximetry 99 Oxygen Delivery Method Oxygen Flow Rate 05/26/22 08:00 05/26/22 07:00 05/26/22 08:00 Pulse Rate 79 79 Respiratory Rate 21 Blood Pressure 93/55 L Pulse Oximetry 100 Oxygen Delivery Method Oxygen Flow Rate Fraction of Inspired Oxygen 38 Oxygen Delivery Method Oximask Oxygen Flow Rate 4 Narrative Exam Narrative: GEN: mild respiratory distress CV: regular rate and rhythm, no murmurs PULM: coarse breath sounds ABD: soft, nontender, nondistended, no organomegaly EXT: warm and well perfused with no edema Objective Labs Result Diagrams: 05/26/22 05:05 05/26/22 05:05 Labs: Laboratory Results - last 24 hr 05/25/22 05/25/22 05/25/22 05:00 05:26 16:45 WBC 3.2 L RBC 2.58 L Hgb 7.9 L Hct 23.7 L MCV 91.9 MCH 30.6 MCHC 33.3 RDW 16.4 H Plt Count 132 L Neut % (Auto) Lymph % (Auto) [place] % (Auto) Eos % (Auto) Baso % (Auto) Neut # (Auto) Lymph # (Auto) [place] # (Auto) Eos # (Auto) Baso # (Auto) Sodium Potassium Chloride Carbon Dioxide BUN Creatinine Estimated GFR BUN/Creatinine Ratio Glucose Calcium Magnesium NT-Pro-B Natriuret Pep 4390 H Blood Type A Positive Antibody Screen Negative 05/25/22 05/26/22 05/26/22 16:45 05:05 05:05 WBC 3.2 L RBC 2.61 L Hgb 8.0 L Hct 23.5 L MCV 90.3 MCH 30.6 MCHC 33.9 RDW 15.9 H Plt Count 134 L Neut % (Auto) 63.8 Lymph % (Auto) 19.7 L [place] % (Auto) 11.9 Eos % (Auto) 4.0 Baso % (Auto) 0.6 Neut # (Auto) 2100 Lymph # (Auto) 600 L [place] # (Auto) 400 Eos # (Auto) 100 Baso # (Auto) 0 Sodium 145 143 Potassium 4.3 3.6 Chloride 113 H 107 Carbon Dioxide 20 L 24 BUN 39 H 36 H Creatinine 1.91 H 2.02 H Estimated GFR 35 L 33 L BUN/Creatinine Ratio 20.4 17.8 Glucose 85 80 Calcium 8.4 8.6 Magnesium 1.5 L NT-Pro-B Natriuret Pep Blood Type Antibody Screen 05/26/22 05:05 WBC RBC Hgb Hct MCV MCH MCHC RDW Plt Count Neut % (Auto) Lymph % (Auto) [place] % (Auto) Eos % (Auto) Baso % (Auto) Neut # (Auto) Lymph # (Auto) [place] # (Auto) Eos # (Auto) Baso # (Auto) Sodium Potassium Chloride Carbon Dioxide BUN Creatinine Estimated GFR BUN/Creatinine Ratio Glucose Calcium Magnesium 1.3 L NT-Pro-B Natriuret Pep Blood Type Antibody Screen [facility] Medical History (Updated 05/23/22 @ 03:34 by JARED Timmons) Anticoagulated on heparin Arthritis Bilateral nephrolithiasis Xvvkqfn-Ltssp-Jmzpr disease Colon cancer Diabetes mellitus treated with oral medication Hernia History of non-ST elevation myocardial infarction (NSTEMI) History of renal calculi Hypertension, essential Mixed hyperlipidemia Peripheral vascular disease of extremity Sleep apnea in adult Surgical History (Updated 05/23/22 @ 03:34 by JARED Timmons) History of heart artery stent Hx of cystoscopy (10/16/21) Hx of cystoscopy (12/03/21) Hx of cystoscopy (03/25/22) S/P ureteral stent placement Status post colectomy (~1995) Status post vascular bypass Family History Father Ulcer History of blood clots Mother No known problems Social History marital status: household members: spouse lives independently: Yes occupational status: other Smoking Status: Former smoker alcohol intake: current substance use type: does not use Type(s) of exercise: bicycling frequency: 1-2 times per week Assessment & Plan Assessment & Plan narrative: 1. Acute respiratory failure, acute, chronic left diaphragmatic paralysis, recent NSTEMI, with heart stents x2, and likely new Dx of CHF exacerbation, by elevated BNP present on admission -tachypneic respiratory rates 25-31, O2 saturations reported below 90% on room air in ED. -hold BIPAP -wean O2 as able -echo with preserved EF -ABG with resolved hypercapnia -recs per tele ICU -decrease lasix to 40mg IV BID 2. CALIXTO secondary to urinary retention with recent stent removal, improving - status post cystoscopy/right ureteroscopic laser lithotripsy/and right ureteral stent exchange on 04/15/2022.? 04/17/2022 admit for sepsis with septic shock, acute resp failure with Enterobacter urosepsis and myocardial infarction, 05/21/2022 right ureteral stent removal by Dr. Cowan. - initial potassium 6.1, bicarb 13, BUN 83, creatinine 4.42, blood sugar 72, GFR 13. Calcium 7.2. Repeat labs potassium 5.6, creatinine 3.63, GFR 16, calcium 8.1, -corrected calcium 7.36. Labs from 04/18/2022 BUN 21, creatinine 1.34, GFR 55. -Renal ultrasound normal kidneys, without hydronephrosis, nonobstructing right renal calculi -continue sequeira and may need outpatient urology f/u 3. Shock, unclear etiology, resolved -sofa score: 8, initial hypotensive blood pressures in ED 80/62, 87/46, 74/39, tachypneic respiratory rates 25-31, O2 saturations reported below 90% on room air. -initially in ED patient was placed on 2 L nasal cannula, sepsis fluid bundle provided, Rocephin, and started on Levophed drip. -blood and urine cultures negative, however was recently on abx for uti so continue abx for now with zosyn -able to wean off levophed -EF obtained and showed preserved EF -hemoglobin continues to slowly downtrend, possibly contributor to low blood pressure 4. Ground level fall resulting in right chest wall and right eye contusion, secondary to both acute and chronic illness and Cgllxln-Fqlop-Jkyap dz with related chronic muscular deconditioning/weakness -Monitor for bleeding. -C-spine CT: no fractures -Head CT negative for any intracranial hemorrhages, right periorbital soft tissue swelling without associated regional fracture -Face CT negative for fracture noted right periorbital soft tissue swelling -Abdomen pelvis CT no fractures noted. -pain management -PT/OT consult -recommend follow-up with PCP for bone density testing. 5. Recent NSTEMI (04/17/2022) with coronary artery stent placement x2, in the setting of elevated BNP -Troponins negative x2 -due to hypotensive cardiogenic shock holding oral Lasix, lisinopril, losartan, metoprolol, amiodarone, atenolol -continue patient's Plavix, ASA -troponins negative 6. Worsening anemia -patient did experience multiple ground level falls and is on aspirin and plavix -no evidence of gi bleeding -send tyep and screen -transfuse for hemoglobin <7 -will continue to trend H&H and monitor for bleeding -hold heparin if further drop in hemoglobin 7. Restless leg syndrome, chronic, present on admission -hold Requip Time Spent With Patient Critical Care time: I spent a total of [] minutes of critical care time on this patient's care today; this time is exclusive of procedural time. Quality VTE Deep Vein Thrombosis/Pulmonary Embolism Present on Admission: No
[2022-05-26] MEDS: polyethylene glycoL 3350 17 GM POWD.PACK PO (11:49)
[2022-05-26] MEDS: INSULIN LISPRO 100 UNIT/ML 3ML VIAL SUBCUT ×2 (12:01→16:58)
[2022-05-26 13:50] LABS: BUN Creatinine Ratio 17.7 (6-22); Blood Urea Nitrogen 37 mg/dL (9-20); Calcium 8.8 mg/dL (8.4-10.2); Carbon Dioxide 23 mmol/L (22-32); Chloride 104 mmol/L (98-107); Estimated Glomerular Filt Rate 32 mL/min (>60); Glucose 253 mg/dL (80-110); HEMOLYSIS < 15 (0-50); Potassium 3.8 mmol/L (3.4-5.1); Sodium 143 mmol/L (137-145)
--- NOTE | 2022-05-26 13:56 | PT.IPRE ---
Current Diagnoses Sleep apnea, unspecified (05/22/22) Acute kidney failure, unspecified (05/22/22) Surgical History (Last Updated 05/23/22 @ 03:34 [facility]) History of heart artery stent Hx of cystoscopy (10/16/21) Hx of cystoscopy (12/03/21) Hx of cystoscopy (03/25/22) S/P ureteral stent placement Status post colectomy (~1995) Status post vascular bypass Medical History (Last Updated 05/23/22 @ 03:34 [facility]) Anticoagulated on heparin Arthritis Bilateral nephrolithiasis Zlmhdhd-Iovit-Fkput disease Colon cancer Diabetes mellitus treated with oral medication Hernia History of non-ST elevation myocardial infarction (NSTEMI) History of renal calculi Hypertension, essential Mixed hyperlipidemia Peripheral vascular disease of extremity Sleep apnea in adult Physical Therapy Inpatient Evaluation/Re-Eval M1 PT/OT-IP Prior Functional Status Start: 05/23/22 12:44 Freq: NEEDED Status: Active Protocol: Document 05/26/22 13:48 AMB (Rec: 05/26/22 13:56 AMB [id number]) Medical Review Prior Functional Status Medical History Reviewed Yes Communication able to make needs known Mobility and Gait pt stated that he is modified independent with all mobilities and ambulation indoors using FWW with max distance able to ambulate ~ 15 ft; uses a manual w/c for outdoor mobility; spouse assist with bed mobility and other needs if needed Prior Functional Level (Other details) pt with Charcot-Yolande- tooth Social History Household Members spouse Living Arrangements House M2 PT-IP Current Condition Start: 05/23/22 12:44 Freq: NEEDED Status: Active Protocol: Document 05/23/22 11:25 AB (Rec: 05/23/22 12:54 AB [id number]) Physical Therapy Current Condition Current Condition Evaluation Date 05/23/22 Treatment Diagnosis sepsis; acute renal failure; difficulty in walking Onset Date 05/22/22 M3 PT-IP Subjective Start: 05/23/22 12:44 Freq: NEEDED Status: Active Protocol: Document 05/26/22 13:48 AMB (Rec: 05/26/22 13:56 AMB [id number]) Subjective Physical Therapy Visit Type Type Re-Evaluation Visit Start Time 11:45 Visit Stop Time 12:30 Total Visit Minutes 45 Physical Therapy Visit Comments Patient Comments Pt excited to try to get up, and sister present Therapy Pain Assessment Pain Present Pain Present Denied Pain M4 PT-IP Mobility and Gait Start: 05/23/22 12:44 Freq: NEEDED Status: Active Protocol: Document 05/26/22 13:48 AMB (Rec: 05/26/22 13:56 AMB [id number]) PT-Bed Mobility Assessment Supine to Sit Supine to Sit Moderate Assistance,1 Person Assistance,Head of Bed Elevated,Bedrails PT-Transfer Assessment Sit to and From Stand Sit to and from Stand Maximum Assistance,1 Person Assistance,Use of Upper Extremities Equipment Transfer Assistive Device Gait Belt,Front Wheeled Walker Transfers Transfer Destination Chair Transfer Technique Stand Step Pivot Transfer Ability Level of Assist Maximum Assistance,1 Person Assistance,Use of Upper Extremities Comments Mobility Comments PREMIUM NOTE INTEREST CALCULATOR CLERK and RN in room to help manage lines and change bedding, but PT was the only one with hands on patient during transfer. Pt able to roll from supine to sidelying with SBA, required cues and ModA for sidelying to sit. Pt works very hard for sit to stand, first time Max A and then stood for 30 seconds. Rested, second attempt also MaxA but then stand step transfer to chair with FWW. M5 PT-IP Objective Assessments Start: 05/23/22 12:44 Freq: NEEDED Status: Active Protocol: Document 05/26/22 13:48 AMB (Rec: 05/26/22 13:56 AMB [id number]) Strength Lower Extremity Strength Assessment Bilaterally Impaired Hip 3+/5 Knee 3+/5 Ankle 1+/5 Comments Strength Comments was hoping to get him braces, but since he was hospitalized they had to reschedule. M6 PT-IP Treatment Start: 05/23/22 12:44 Freq: NEEDED Status: Active Protocol: Document 05/23/22 11:25 AB (Rec: 05/23/22 12:54 AB [id number]) Physical Therapy Treatment Education Education Provided Safety M7 PT-IP Assessment and Plan Start: 05/23/22 12:44 Freq: NEEDED Status: Active Protocol: Document 05/26/22 13:48 AMB (Rec: 05/26/22 13:56 AMB [id number]) PT Summary Assessment and Plan Potential Rehabilitation Potential Fair Status of Condition at Evaluation Evolving Summary Impairments Pain,ROM,Strength,Balance, Coordination,Sensation,Tone, Cognition,Bed Mobility, Transfers,Gait,Activity Tolerance Assessment Summary Pt's SpO2 remained in the 90s during mobility on room air, which is significant improvement from last few days . That said, pt still requires heavy assistance with transfers and unable to perform any gait at this point . Would recommend SNF. Goals Bed Mobility Goal Minimal Assistance Transfer Goal Minimal Assistance,Front Wheeled Walker Gait Goal Minimal Assistance,Front Wheel Walker Gait Distance 15 Other Goals improve transfers and ambulation using FWW 15 ft SBA Days to Meet Goals 10 Frequency of Treatment Frequency Of Treatment Once a Day Treatment Plan Physical Therapy Treatment Plan Bed Mobility Training,Transfer Training,Gait Training, Therapeutic Exercise,Balance Retraining,Discharge Planning, Hot or Cold Pack,Neuromuscular Re-ed,Coordination Retraining ,Manual Therapy Recommendations To Nursing Amount of Assist Needed 2 Person Assist Discharge Recommendations PT Discharge Recommendations SNF Rehab Transportation Needs at Discharge Wheelchair/Cabulance
[2022-05-26] MEDS: FUROSEMIDE 100 MG/10 ML VIAL 40 MG IV (18:43)
[2022-05-26] MEDS: MELATONIN 3 MG TABLET 6 MG PO (20:28)
[2022-05-26] MEDS: ROPINIROLE 1 MG TABLET PO (20:30)
[2022-05-27] MEDS: PIPERACILLIN/TAZO 3.375 GM in SODIUM CHLORIDE 0.9% 100 ML IV ×2 (01:52→08:46)
[2022-05-27 02:00] VITALS: BP 138/83; PULSE 84; RESP 20; TEMP 36.3; O2SAT 94
[2022-05-27 06:25] LABS: Hematocrit 25.2 % (41-53); Hemoglobin 8.5 g/dL (13.5-17.5); Mean Corpuscular HGB Conc 33.5 % (30-36); Mean Corpuscular Hemoglobin 30.1 PG (26-34); Mean Corpuscular Volume 89.6 fL (80-100); Platelet Count 167 X10^3/uL (150-400); Red Blood Cell Count 2.82 X10^6/uL (4.5-5.9); White Blood Cell Count 3.5 X10^3/uL (4.5-11.0)
[2022-05-27 06:33] LABS: BUN Creatinine Ratio 21.8 (6-22); Blood Urea Nitrogen 44 mg/dL (9-20); Calcium 8.7 mg/dL (8.4-10.2); Carbon Dioxide 25 mmol/L (22-32); Chloride 104 mmol/L (98-107); Estimated Glomerular Filt Rate 33 mL/min (>60); Glucose 119 mg/dL (80-110); HEMOLYSIS < 15 (0-50); Magnesium 1.6 mg/dL (1.6-2.3); Potassium 3.8 mmol/L (3.4-5.1); Sodium 141 mmol/L (137-145)
[2022-05-27 08:00] VITALS: BP 143/73; PULSE 90; RESP 16; TEMP 36.5; O2SAT 99
[2022-05-27] MEDS: HEPARIN 5,000 UNIT/ML VIAL 5000 UNIT SUBCUT (08:44)
[2022-05-27] MEDS: SODIUM CHLORIDE 0.9% FLUSH 10 ML IV (08:44)
[2022-05-27] MEDS: FAMOTIDINE 20 MG/2 ML VIAL IV (08:45)
[2022-05-27] MEDS: ASPIRIN EC 81 MG TABLET PO (08:46)
[2022-05-27] MEDS: FUROSEMIDE 40 MG TABLET PO (08:46)
[2022-05-27] MEDS: INSULIN LISPRO 100 UNIT/ML 3ML VIAL SUBCUT ×2 (08:47→12:17)
[2022-05-27] MEDS: MAGNESIUM SULFATE 2 GM/50 ML PIGGYBACK IV (08:48)
--- NOTE | 2022-05-27 09:12 | CM.DPC ---
DCP SNF Planning Per MD, pt likely medically stable to d/c today. Per PT, recommending SNF as pt requiring additional assist of 1-2PA max and per RN pt needing fair amount of assist with mobility and transfers. YANELIS met bedside with pt and explained role and pt confirms he was recently at [facility] and feels SNF needed before return home with spouse and preference is [facility] again. SW called [facility] admissions and left msg and faxed clinicals and updated that pt's infection returned after d/c from SNF and had two falls at home and needs strengthening before return to home. YANELIS also called [facility] for review as a backup. Pt states it's just his spouse and him at home, no son or Dtr to assist? Plan: SW to follow closely for plan of SNF today if bed availability found vs return home with spouse and pt currently open with [facility]. Vesta Thompson, HOWIE
--- NOTE | 2022-05-27 10:58 | PT.IPTN ---
Current Diagnoses Sleep apnea, unspecified (05/22/22) Acute kidney failure, unspecified (05/22/22) Physical Therapy Treatment Note M2 PT-IP Current Condition Start: 05/23/22 12:44 Freq: NEEDED Status: Active Protocol: Document 05/27/22 10:20 TS (Rec: 05/27/22 14:38 TS [id number]) Physical Therapy Current Condition Current Condition Evaluation Date 05/27/22 Treatment Diagnosis sepsis; acute renal failure; difficulty in walking Onset Date 05/22/22 M3 PT-IP Subjective Start: 05/23/22 12:44 Freq: NEEDED Status: Active Protocol: Document 05/27/22 10:20 TS (Rec: 05/27/22 14:38 TS [id number]) Subjective Physical Therapy Visit Type Type Treatment Note Visit Start Time 10:20 Visit Stop Time 10:58 Total Visit Minutes 38 Notes CARLY Fuentes lead treatment directly supervised and directed by KETTY eubanks. KETTY Eubanks assisted with line and ambulation management. BP Pre tx: 137/84, BP post tx: 188/90 , 93 Spo2 on RA, HR:96. Physical Therapy Visit Comments Patient Comments Pt was found in bedside chair with spouse present. He was excited, eager and agreeable to PT session. He had concerns about urology upon discharge. Relayed concerns to care management and nursing staff. M4 PT-IP Mobility and Gait Start: 05/23/22 12:44 Freq: NEEDED Status: Active Protocol: Document 05/27/22 10:20 TS (Rec: 05/27/22 14:38 TS [id number]) PT-Bed Mobility Assessment Sit to Supine Sit to Supine Standby Assistance Scooting Scooting Up and Down in Bed Minimal Assistance PT-Transfer Assessment Sit to and From Stand Sit to and from Stand Maximum Assistance,2 Person Assistance,Use of Upper Extremities Equipment Transfer Assistive Device Gait Belt,Front Wheeled Walker Orthotic/Prosthetic Devices or Brace: No Transfers Transfer Destination Chair Transfer Technique pt ambulated using FWW Transfer Ability Level of Assist Minimal Assistance,1 Person Assistance,Use of Upper Extremities Comments Mobility Comments Pt performed sit to stand x2 with good use of UEs but required Max A 2 person assist to fully upright into standing with verbal cues to get weight over balls of feet and for handplacement onto FWW when standing while giving trunk support. Pt performed sit supine with Mod independence with use of the handrail. Once supine required Sea to scoot up towards the head of the bed. Gait Assessment Gait Gait Assistance Required: Minimum Assistance Distance (Feet) 30 Able to Maintain Weight Bearing Status Yes During Gait Assistive Devices Assistive Device Gait Belt,Front Wheeled Walker Orthotic/Prosthetic Devices or Brace: No Gait Deviations General Gait Pattern Antalgic,Decreased Stride Length,Decreased Feet Clearance,Narrow Based Gait Factors Limiting Gait Function Factors Limiting Gait Function Decreased Activity Tolerance, Decreased Strength,Poor Balance,Poor Safety Awareness Comments Gait Comments Pt required Sea initially for trunk support to room door due from one therapist due to forward leaning, while other therapist managing IV pole, progressed to CGA ambulating back to bedside chair, Min A with education on importance safety use of HP and eccentric control to sit into chair. Updated room communication board mobility A needed . PT-Balance Assessment Sitting Balance and Reactions Static Sitting Balance Ability Good Dynamic Sitting Balance Ability Good Standing Balance and Reactions Static Standing Balance Ability Fair Dynamic Standing Balance Ability Fair Device Used FWW Comments Other Balance Tests/Deviations/Treatment Pt maintained good sitting : balance on EOB and demonstrated good use of UE support in standing with FWW. Required verbal cues for feet placement and upright posture. M5 PT-IP Objective Assessments Start: 05/23/22 12:44 Freq: NEEDED Status: Active Protocol: Document 05/26/22 13:48 AMB (Rec: 05/26/22 13:56 AMB [id number]) Strength Lower Extremity Strength Assessment Bilaterally Impaired Hip 3+/5 Knee 3+/5 Ankle 1+/5 Comments Strength Comments was hoping to get him braces, but since he was hospitalized they had to reschedule. M6 PT-IP Treatment Start: 05/23/22 12:44 Freq: NEEDED Status: Active Protocol: Document 05/27/22 10:20 TS (Rec: 05/27/22 14:38 TS [id number]) Physical Therapy Treatment Education Education Provided Safety M7 PT-IP Assessment and Plan Start: 05/23/22 12:44 Freq: NEEDED Status: Active Protocol: Document 05/27/22 10:20 TS (Rec: 05/27/22 14:38 TS [id number]) PT Summary Assessment and Plan Potential Rehabilitation Potential Good Status of Condition at Evaluation Evolving Summary Impairments Pain,ROM,Strength,Balance, Coordination,Sensation,Tone, Cognition,Bed Mobility, Transfers,Gait,Activity Tolerance Progress Towards Goals Progressing Toward Goals,Slow Progress due to Activity Tolerance Assessment Summary Pt was able to maintain low 90 's Spo2 during todays session. He requires MaxA x2 into standing but when in standing can support self Sea to CGA when cued for feet placement and trunk posture. He progressed his ambulation significantly requring Sea and progressing to CGA by end of session. PT is recommending SNF to increase strength, functional mobility and transfers. Goals Bed Mobility Goal Minimal Assistance Transfer Goal Minimal Assistance,Front Wheeled Walker Gait Goal Minimal Assistance,Front Wheel Walker Gait Distance 15 Other Goals improve transfers and ambulation using FWW 15 ft SBA Days to Meet Goals 10 Frequency of Treatment Frequency Of Treatment Once a Day Treatment Plan Physical Therapy Treatment Plan Bed Mobility Training,Transfer Training,Gait Training, Therapeutic Exercise,Balance Retraining,Discharge Planning, Hot or Cold Pack,Neuromuscular Re-ed,Coordination Retraining ,Manual Therapy Recommendations To Nursing Amount of Assist Needed 2 Person Assist Discharge Recommendations PT Discharge Recommendations SNF Rehab Equipment Needed for Home Before FWW if needed for home support Discharge , defer to SNF. Transportation Needs at Discharge Wheelchair/Cabulance
--- NOTE | 2022-05-27 11:52 | PM.DS.1 ---
History of Present Illness History of Present Illness Date Patient Seen: 05/22/22 Time Patient Seen: 18:19 Chief complaint: trauma, GLF on thinners Narrative: Per maisha martinez: Shantanu Underwood is a 69-year-old male history of Crltrmu-Zhbax-Xfndn dz with related chronic muscular deconditioning/weakness, chronic left diaphragmatic paralysis, PVD, HLD, sleep apnea, RLS, colon cancer, DM type 2, hypertension, obstructive bilateral nephrolithiasis with stents, recent NSTEMI, with heart stents x2 (plavix/ASA), gouty arthritis and trophi gout who presented to the ED today with progressive worsening weakness secondary to his Charcot Yolande tooth disease/deconditioning, resulting in a ground level fall last night and early this morning resulting in right chest contusion and right eye contusion. Most recently he is status post cystoscopy/right ureteroscopic laser lithotripsy/and right ureteral stent exchange on 04/15/2022.? On 04/17/2022, was found unresponsive and on the floor after a reclined bicycle ride.? He was found to have Enterobacter urosepsis and myocardial infarction.?Hospital discharge 04/18/2022 Per GRINDER OPERATOR TOOL Morillo:Shantanu Underwood is admitted to the intensive care unit intubated with septic and cardiogenic shock likely due to a urinary tract infection status post lithotripsy POD #2., NSTEMI, acute hypoxemic respiratory failure, anemia of chronic disease and diabetes type 2. Due to acuity of his illness and need for multi specialty care he was transferred to [facility].? Where the patient reports he had a heart catheterization with 2 heart stents placed. He since went to rehab facility for 2 weeks and he has been home for about a week.? He continues to ride his recumbent bicycle.? Today he presents following 2 ground level falls.? He uses his walker but felt like his shoulders and arms gave out.? He fell hitting the right side of his face.? He is on aspirin and Plavix.? Patient describes right-sided chest discomfort without radiation, induced with movement or deep breathing, denies diaphoresis, does have mild shortness of breath, on 2 L O2 nasal cannula. No loss of consciousness, CORRALES, changes in vision, fever, body aches, chills, abdominal pain, nausea, vomiting, changes in bowels, melena, dysuria, frequency, urgency, retention, hematuria, no recent changes to medication had been taking Cipro p.o. daily. from DR. Cowan. The patient reported to Dr. Cowan on 05/21/2022 continued worsening weakness, decreased energy level have impacted significantly following his illnesses.?He has had home health and PT.? He had not yet scheduled referral and consultation with Nephrology. He was seen by Dr. Cowan on 05/21/2002 for cystoscopy/right ureteral stent removal.? In the ED department patient developed cardiogenic septic shock with hypotension-started on Levophed, with sepsis fluid bundle found to be retaining urine-Sequeira placed, positive UTI Rocephin given, and was mildly short of breath-placed on 2 L nasal cannula. Vitals at the time of admit temp 97.4?, BP 100/59 on 8 mcg of Levophed, HR 61, RR 19, O2 saturation 97% on 2 L nasal cannula. Patient is stable and in no distress at this time. ABGs: HC03 15.4, T CO2 17, base excess -13. Hemoglobin 9.4, hematocrit 28.4, platelets 148-H&H is slightly decreased from 04/18/2022 labs. Patient is hyperkalemic with CALIXTO initial potassium 6.1, bicarb 13, BUN 83, creatinine 4.42, blood sugar 72, GFR 13. Calcium 7.2. Repeat labs potassium 5.6, creatinine 3.63, GFR 16, calcium 8.1, -corrected calcium 7.36. Urinalysis positive for nitrates, blood, bacteria, RBC, WBC-urine culture pending. Blood cultures x2 pending. Dimer 1535, chest CT of abdomen pelvis negative for PE. Troponins negative x2, BNP 1950, lactate, procalcitonin, lipase and COVID all WNL. EKG NSR with a rate of [address] changes, T-wave inversion no change from previous EKGs and no prolonged QT interval. Patient had multiple imaging chest x-ray chronic elevation of left hemidiaphragm with left bibasilar atelectasis, and right central line placement, chest CT bibasilar bronchial wall thickening and patchy bibasilar atelectasis, coronary artery stent, bilateral lower extremity venous ultrasound negative for DVT, renal ultrasound normal kidneys, without hydronephrosis, nonobstructing right renal calculi, C-spine CT: no fractures, head CT negative for any intracranial hemorrhages, right periorbital soft tissue swelling without associated regional fracture, face CT negative for fracture noted right periorbital soft tissue swelling, abdomen pelvis CT noted enlarged prostate, with diffuse bladder wall thickening suggestive of bladder outlet obstruction, bilateral nephrolithiasis. Patient admitted for sepsis with septic shock, respiratory, renal, and cardiogenic, acute respiratory failure with hypoxia due to possible CHF exacerbation with chronic left diaphragmatic paralysis, CALIXTO secondary to UTI and urinary retention resulting in hyperkalemia following right ureteral stent removal within the past 24 hours and enlarged prostate, and GLF resulting in right chest wall contusion and right eye contusion due to muscular deconditioning/weakness secondary to recent critical illness and chronic Charcot Yolande tooth disease. Discharge Providers Provider Date of admission: 05/22/22 19:44 Discharge Date: 05/27/22 Primary care physician: Dmitry Ferguson MD Consults: 05/22/22 18:15 Consult to Physical Therapy Evaluate & Treat Comment: Physician Instructions: Evaluate and Treat 05/22/22 18:22 Consult to Tele-bad cloth checker Routine Comment: Consulting Provider: Tawanna Tele-intensivists Reason for consultation: Billing Services Manager services 05/22/22 20:48 Consult to Physician Routine Comment: Consulting Provider: Hernandez Magallanes Reason for consultation: Post ureterstent removal , retention, sepsis Has provider been notified: No 05/24/22 03:36 Consult to Respiratory Therapy Evaluate & Treat Comment: Bipap Physician Instructions: Evaluate and treat 05/25/22 11:02 Consult to Pastoral Services Routine Comment: patient sister requesting a sign language interpreter Discharge provider: Anirudh Duncan MD Summary Hospital Course Discharge Diagnosis: 1. Acute hypoxic respiratory failure secondary to acute CHF exacerbation 2. CAD s/p recent stents 3. CALIXTO 4. Acute urinary retention 5. Recent urinary stent placement and removal 6. Charcot-Yolande tooth, with falls, weakness 7. Anemia 8. Restless leg syndrome 9. Hypertension 10. Hospital Course: Mr. Underwood was admitted to the hospital with shock and hypoxic respiratory failure. He was ultimately found to have an acute CHF exacerbation and diuresed well with IV lasix with ability to be taken off oxygen. His shock may be secondary to hypovolemia as he did have worsening anemia likely secondary to falls with bruising. He had no GI bleeding and his hemoglobin stabilized without needing transfusion. Infectious workup was negative and antibiotics were stopped. He was found to be in renal failure and acute urinary retention. He has had recent urologic procedures and recent stent removal. He had sequeira placed and his creatinine improved to 2.02 on discharge. He has multiple medications held including his herman-inhibitor, arb, atenolol, and metformin due to his kidney dysfunction. He should have a BMP within a week to make sure he has continued improvement and then can consider restarting some of his medications. He was quite deconditioned and weak on discharge and is discharged to SNF for PT. He should have follow up with urology to evaluate for sequeira removal within one week. Exam Vital Signs (past 8 hours): - 05/27/22 08:00 05/27/22 09:12 Temperature 97.7 F Pulse Rate 90 Respiratory Rate 16 Blood Pressure 143/73 H Pulse Oximetry 99 Oxygen Delivery Method Room Air Oxygen Flow Rate 0 Fraction of Inspired Oxygen 38 Oxygen Delivery Method Room Air Oxygen Flow Rate 0 Narrative Exam Narrative: GEN: mild respiratory distress CV: regular rate and rhythm, no murmurs PULM: coarse breath sounds ABD: soft, nontender, nondistended, no organomegaly EXT: warm and well perfused with no edema Objective Labs Result Diagrams: 05/27/22 06:10 05/27/22 06:10 Labs: Laboratory Results - last 24 hr 05/26/22 05/27/22 05/27/22 13:27 06:10 06:10 WBC 3.5 L RBC 2.82 L Hgb 8.5 L Hct 25.2 L MCV 89.6 MCH 30.1 MCHC 33.5 RDW 16.0 H Plt Count 167 Sodium 143 141 Potassium 3.8 3.8 Chloride 104 104 Carbon Dioxide 23 25 BUN 37 H 44 H Creatinine 2.09 H 2.02 H Estimated GFR 32 L 33 L BUN/Creatinine Ratio 17.7 21.8 Glucose 253 H D 119 H D Calcium 8.8 8.7 Magnesium 2.0 1.6 [facility] Medical History (Updated 05/23/22 @ 03:34 by JANETH Timmons-) Anticoagulated on heparin Arthritis Bilateral nephrolithiasis Jqmvgca-Flvfc-Ucqer disease Colon cancer Diabetes mellitus treated with oral medication Hernia History of non-ST elevation myocardial infarction (NSTEMI) History of renal calculi Hypertension, essential Mixed hyperlipidemia Peripheral vascular disease of extremity Sleep apnea in adult Surgical History ([facility] 05/23[facility]22 @ 03[facility] History of heart artery stent Hx of cystoscopy (10/16/21) Hx of cystoscopy (12/03/21) Hx of cystoscopy (03/25/22) S/P ureteral stent placement Status post colectomy (~1995) Status post vascular bypass Family History Father Ulcer History of blood clots Mother No known problems Social History marital status: household members: spouse lives independently: Yes occupational status: other Smoking Status: Former smoker alcohol intake: current substance use type: does not use Type(s) of exercise: bicycling frequency: 1-2 times per week Discharge Plan Discharge Plan Patient Disposition: SNF Provider Discharge Comment: transfer to snf for physical therapy Discharge orders & Medications Prescriptions: New furosemide 40 mg Tablet 40 mg PO DAILY Qty: 10 0RF acetaminophen 325 mg Tablet 650 mg PO Q6H PRN (Reason: Fever/Mild Pain (1-3)) Qty: 10 0RF ropinirole 1 mg Tablet 1 mg PO BEDTIME Qty: 10 0RF polyethylene glycol 3350 17 gram Powder In Packet 17 gm PO DAILY PRN (Reason: Constipation) Qty: 10 0RF aspirin 81 mg Tablet,Delayed Release (Dr/Ec) 81 mg PO DAILY Qty: 10 0RF insulin lispro [Humalog U-100 Insulin] 100 unit/mL Solution 0 unit SUBCUT ACHS Qty: 10 0RF Continued clopidogrel [Plavix] 75 mg tablet 75 mg PO DAILY Qty: 90 3RF ProAir HFA 90 mcg/actuation HFA aerosol inhaler 1 puff INHALATION Q6H PRN (Reason: shortness of breath or wheezing) Qty: 8.5 11RF amiodarone 200 mg tablet 200 mg PO DAILY Label Comments: TAKE ONE TABLET BY MOUTH ONE TIME DAILY metoprolol succinate 25 mg tablet extended release 24 hr 25 mg PO DAILY Label Comments: TAKE ONE TABLET BY MOUTH ONE TIME DAILY Discontinued lisinopril 5 mg tablet 5 mg PO DAILY Qty: 90 3RF atenolol 50 mg tablet 50 mg PO DAILY Qty: 90 3RF metformin 1,000 mg tablet 1,000 mg PO BID Qty: 180 1RF ropinirole 4 mg tablet 8 mg PO BEDTIME Qty: 180 2RF Rx Instructions: administer 1-3 hours before bedtime alprazolam 0.5 mg tablet 0.5 mg PO DAILY Qty: 1 0RF Rx Instructions: Take tablet approximately 1 hour before procedure appointment. losartan 50 mg tablet 50 mg PO DAILY Label Comments: TAKE ONE TABLET BY MOUTH ONE TIME DAILY furosemide 20 mg tablet 20 mg PO DAILY Label Comments: TAKE ONE TABLET BY MOUTH ONE TIME DAILY potassium citrate 10 mEq (1,080 mg) tablet extended release 10 meq PO TID Qty: 270 3RF Follow up/Referrals: Dmitry Ferguson MD [Primary Care Provider] - Brando Cowan MD [Physician] - 1 Week Discharge Health Status Multidrug resistant organism: No MDRO Diet/Activity/Treatments Diet: Low-sodium Liquid consistency: Normal/Thin Food texture: Regular [facility] Rehab type: Physical therapy and Occupational therapy Discharge Data Primary Care Provider: Dmitry Ferguson Quality VTE Deep Vein Thrombosis/Pulmonary Embolism Present on Admission: No
[2022-05-27 12:00] VITALS: BP 100/59; PULSE 75; RESP 19; TEMP 36.4; O2SAT 94
[2022-05-27 12:13] LABS: COVID19 -Nasal RAPID Negative (Negative)
--- NOTE | 2022-05-27 12:41 | CM.DPC ---
DCP continued: Reviewed chart. Per provider patient medically stable to d/c to SNF today. HOWIE/Vesta has met with patient and spouse both in agreement to SNF. First choice is either [facility] or [facility]. CM team placed call to both facilities. No beds available at [facility]. However, bed available at [facility]. Patient and spouse agreeable to facility. Patient scheduled to be picked up at 2:00pm. RN given number to call report. ADDRESSER/Tara to finalize d/c. Provider aware of pickle water pump operator time. COVID test pending. P: [facility] today at 2:00pm. HOWIE Roberts
--- NOTE | 2022-05-27 15:10 | PC.NURSE ---
Addendum entered by Carmela Holcomb R.N. 05/27/22 16:03: Report given to Seun, all questions answered. Original Note: Discharge Note [facility] at [facility] via wheelchair. Information packet with pt. Appt with urology made per pt/ request. Instructions reviewed with pt and and all questions answered. All belongings with pt including cell phone, clothing, and shoes. Attempted to call report at 1530 but admitting nurse Seun was unable to take report at that time, requested call back number which was given. Awaiting call back.
[2022-05-30 18:42] LABS: Fractionated Inspired Oxygen 28; HCO3 ABG 15 mmol/L (22-26); Oxygen Saturation ABG 96 % (95-100); PCO2 ABG 43.4 mmHg (35-45); PO2 ABG 108 mmHg (80-100); TCO2 ABG 17 mmol/L (21-31); pH ABG 7.16 (7.35-7.45)
== END 2022-05-27 14:05 | DRG 189 ==
LOC: ED 19:08 → AC 19:46 → ICU 20:43
PROVIDERS: Internal Medicine; Internal Medicine Critical Care Medicine; Nurse Practitioner Family; Admitting Provider Student in an Organized Health Care Education/Training Program; Emergency Provider Emergency Medicine; PCP Student in an Organized Health Care Education/Training Program; Referring Provider Emergency Medicine; Visit Provider Student in an Organized Health Care Education/Training Program
DX: J96.01 Acute respiratory failure with hypoxia (principal); R57.0 Cardiogenic shock; I50.31 Acute diastolic (congestive) heart failure; N17.9 Acute kidney failure, unspecified; D61.818 Other pancytopenia; E87.0 Hyperosmolality and hypernatremia; G60.0 Hereditary motor and sensory neuropathy; G25.81 Restless legs syndrome; E78.2 Mixed hyperlipidemia; I25.10 Atherosclerotic heart disease of native coronary artery without angina pectoris; R45.1 Restlessness and agitation; R33.9 Retention of urine, unspecified; I11.0 Hypertensive heart disease with heart failure; E11.9 Type 2 diabetes mellitus without complications; S00.11XA Contusion of right eyelid and periocular area, initial encounter; W18.30XA Fall on same level, unspecified, initial encounter; Z79.84 Long term (current) use of oral hypoglycemic drugs; Z79.01 Long term (current) use of anticoagulants; Z20.822 Contact with and (suspected) exposure to COVID-19; Z66 Do not resuscitate; Z87.891 Personal history of nicotine dependence; Z95.5 Presence of coronary angioplasty implant and graft; Z91.81 History of falling; Z87.442 Personal history of urinary calculi
CPT/HCPCS: 36415; 36556; 36592; 36600; 51798; 52310; 70450; 70486; 71045; 71250; 72125; 74176; 76770; 80048; 80053; 81001; 82550; 82805; 82962; 83036; 83605; 83690; 83735; 83880; 84145; 84484; 85007; 85025; 85027; 85379; 86850; 86900; 86901; 87040; 87086; 87635; 87797; 93005; 93306; 93970; 94660; 96372; 96375; 96376; 97116; 97162; 97164; 97530; 99215; 99285; 99291; C9803; C9113; J0692; J0696; J1170; J1630; J1642; J1644; J1650; J1815; J1940; J2270; J2543; J3475

== ENCOUNTER 2022-06-10 13:35 | Inpatient (IN) | payer MEDICARE, SELFPAY ==
[2022-04-18 03:55] VITALS: RESP 16
[2022-05-22 20:27] VITALS: BMI 28.5
[2022-05-25 14:41] VITALS: PULSE 84; RESP 20; O2SAT 99
[2022-06-10] VITALS (132 sets, daily range): BP systolic 84–150; BP diastolic 50–82; PULSE 69–126; RESP 16–52; TEMP 36.4–36.7; O2SAT 88–100; BMI 27.4
--- NOTE | 2022-06-10 13:51 | DI.RAD.S_ITS ---
PROCEDURE: XR CHEST 1V INDICATIONS: hypotension, recent sepsis TECHNIQUE: One view of the chest was acquired. COMPARISON: [facility], , XR CHEST 1V, 05/25/2022, 9:23. FINDINGS: Surgical changes and devices: None. Lungs and pleura: Moderate patchy opacity at the left lung base. No pleural effusions or pneumothorax. Mediastinum: Mediastinal contours appear normal. Heart size is normal. Bones and chest wall: No suspicious bony lesions. Overlying soft tissues appear unremarkable. IMPRESSION: Left lung base pneumonia. Dictated by: Cody Ivory M.D. on 06/10/2022 at 14:30 Approved by: Cody Ivory M.D. on 06/10/2022 at 14:30
--- NOTE | 2022-06-10 13:55 | ED_ITS ---
HPI - Sepsis General Chief Complaint: Weakness Mode of arrival: EMS Source: patient and EMS Evaluation Sepsis Screen: No Definite Risk Sepsis Infection Criteria Present: Suspected New Infection Narrative: This is a 77-year-old male with history of Charcot Yolande tooth, cardiac stents with known coronary artery disease, and had sepsis secondary to UTI/pyelo/renal calculi had ureteral stent placed and later removed. Patient presents today from home with decreased level of consciousness at home, hypotension. Patient himself states he feels better currently he received fluids in the field and blood pressure was improving particularly when lying flat. He denies lightheadedness or passing out but medics state that he did have some difficulty staying awake initially. Denies chest pain or shortness of breath. Denies any active nausea or vomiting. Denies any diarrhea or constipation, denies any black or bloody stools. He denies any current urinary symptoms has a Spear catheter still in place draining slightly cloudy clear urine. Patient does not feel like he has been out of his normal baseline. Family is not currently at bedside upon arrival. Patient notes that he had cardiac stents placed while he was at [facility] in [place] during his stay for his sepsis secondary to obstructed renal calculi/pyelo. Review of Systems Review of Systems ROS Unobtainable: All systems reviewed & are unremarkable except as noted in HPI and below Patient History Medical History Anticoagulated on heparin Arthritis Bilateral nephrolithiasis Soyuaed-Pmmkj-Vkwui disease Colon cancer Diabetes mellitus treated with oral medication Hernia History of non-ST elevation myocardial infarction (NSTEMI) History of renal calculi Hypertension, essential Mixed hyperlipidemia Peripheral vascular disease of extremity Sleep apnea in adult Surgical History History of heart artery stent Hx of cystoscopy (10/16/21) Hx of cystoscopy (12/03/21) Hx of cystoscopy (03/25/22) S/P ureteral stent placement Status post colectomy (~1995) Status post vascular bypass Family History Father Ulcer History of blood clots Mother No known problems Social History marital status: household members: spouse lives independently: Yes occupational status: other Smoking Status: Former smoker alcohol intake: current substance use type: does not use Type(s) of exercise: bicycling frequency: 1-2 times per week Smoking Status: Former smoker alcohol intake frequency: a few times a month Substance Use Type: does not use Exam Narrative Exam Narrative: GEN: , alert and oriented x 3, patient is sometimes slow to answer but seems to be able to answer questions about his medical history pretty appropriately. Patient appears to be in mild distress. Patient appears pale. HEENT: Atraumatic, pupils are equal round reactive to light, extraocular movements are intact, nares are clear, TMs are clear with no fluid, there is no conjunctival pallor. Throat is clear without any exudates, erythema, tonsillar enlargement or uvular deviation HEART: Regular rate and rhythm without murmur, clicks, rubs. No carotid bruits, pulses are equal in upper and lower extremities LUNGS:Lungs clear to auscultation, no wheezes, rales, crackles, chest moves symmetrically ABD:bowel sounds normal, soft, non-tender, no guarding, rebound, rigidity, no masses noted, no hepatosplenomegaly, patient has multiple healed incisions which she states from his surgery from pyloric stenosis as a child. :No CVA tenderness, Spear catheter in place draining slightly cloudy clear urine. MSCL: Non-tender, no muscle atrophy, muscles strength 5/5 upper and lower extremities, full range of motion NEURO:CN 2-12 intact, sensation normal, GCS 15 SKIN: No rash, erythema or other skin changes noted. Initial Vital Signs Initial Vital Signs: Vital Signs Temperature 97.6 F 06/10/22 13:34 Pulse Rate 71 06/10/22 13:34 Respiratory Rate 22 06/10/22 13:34 Blood Pressure 123/58 L 06/10/22 13:34 Pulse Oximetry 98 06/10/22 13:34 Oxygen Delivery Method 06/10/22 13:34 Scores GCS Anastasiia coma scale eye opening: Spontaneous Anastasiia coma scale verbal response: Orientated [place] coma scale motor response: Obey commands [place] coma scale total score: 15 Course Orders Ordered: Acetaminophen (Acetaminophen 325 Mg Tablet) 650 mg PO Q6H PRN PRN Reason: Fever/Mild Pain (1-3) Last Admin: 06/11/22 01:26 Dose: 650 mg Documented By: VERITO Amiodarone HCl (Amiodarone 200 Mg Tablet) 200 mg PO DAILY [facility] Aspirin (Aspirin Ec 81 Mg Tablet) 81 mg PO DAILY [facility] Clopidogrel Bisulfate (Clopidogrel 75 Mg Tablet) 75 mg PO DAILY [facility] Enoxaparin Sodium (Enoxaparin 40 Mg/0.4 Ml Syringe) 40 mg SUBCUT DAILY [facility] Vancomycin HCl (Vancomycin) 1,000 mg in 200 mls @ 200 mls/hr IV Q24H [facility] Last Infusion: 06/10/22 16:33 Dose: 0 mls/hr Documented By: Infusion: 06/10/22 16:09 Dose: 200 mls/hr Documented By: Admin: 06/10/22 15:15 Dose: 200 mls/hr Documented By: SIMON Magnesium Sulfate (Magnesium Sulfate) 4 gm in 100 mls @ 25 mls/hr IV NOW ONE Stop: 06/11/22 10:36 Last Admin: 06/11/22 07:00 Dose: 25 mls/hr Documented By: VERITO Co-signed By: Metoprolol Succinate (Metoprolol Er 25 Mg Tablet) 25 mg PO DAILY [facility] Ondansetron HCl (Ondansetron 4 Mg/2 Ml Inj) 4 mg IV Q8HR PRN PRN Reason: Nausea And Vomiting Polyethylene Glycol (Polyethylene Glycol 3350 17 Gm Powd.Pack) 17 gm PO DAILY PRN PRN Reason: Constipation Ropinirole HCl (Ropinirole 1 Mg Tablet) 1 mg PO BEDTIME [facility] Last Admin: 06/10/22 20:12 Dose: 1 mg Documented By: VERITO Discontinued Medications Sodium Chloride (Normal Saline 0.9%) 1,914 mls @ 638 mls/hr 30 ml/kg infuse over 3 hr (1914 ml) IV NOW ONE Stop: 06/10/22 16:50 Last Infusion: 06/10/22 17:06 Dose: 0 mls/hr Documented By: Infusion: 06/10/22 16:29 Dose: 100 mls/hr Documented By: Admin: 06/10/22 14:23 Dose: 638 mls/hr Documented By: SIMON Piperacillin Sod/Tazobactam (Sod 4.5 gm/ Sodium Chloride) 100 mls @ 200 mls/hr IV NOW ONE Stop: 06/10/22 14:58 Last Admin: 06/10/22 15:10 Dose: Not Given Documented By: SIMON Cefepime HCl 2 gm/ Sodium (Chloride) 100 mls @ 200 mls/hr IV NOW ONE Stop: 06/10/22 14:59 Last Infusion: 06/10/22 15:34 Dose: 0 mls/hr Documented By: Admin: 06/10/22 15:04 Dose: 200 mls/hr Documented By: SIMON Potassium Chloride (Potassium Chloride 20 Meq Tab) 20 meq PO NOW ONE Stop: 06/11/22 06:38 Last Admin: 06/11/22 07:00 Dose: 20 meq Documented By: VERITO Vancomycin HCl (Vancomycin Per Pharmacy) 1 request MISC NOW ONE Stop: 06/10/22 14:58 Last Admin: 06/10/22 15:21 Dose: Not Given Documented By: SIMON Vital Signs Vital signs: Vital Signs - 8 hr 06/10/22 13:34 06/10/22 13:40 06/10/22 14:00 Temperature 97.6 F Pulse Rate 71 69 71 Respiratory Rate 22 32 H 25 H Blood Pressure 123/58 L Pulse Oximetry 98 97 96 Oxygen Delivery Method Room Air Oxygen Flow Rate 06/10/22 14:13 06/10/22 14:15 06/10/22 14:15 Temperature Pulse Rate 70 70 Respiratory Rate 29 H 27 H Blood Pressure 105/58 L Pulse Oximetry 96 96 Oxygen Delivery Method Oxygen Flow Rate 06/10/22 14:20 06/10/22 14:20 06/10/22 14:25 Temperature Pulse Rate 81 74 Respiratory Rate 28 H 25 H Blood Pressure 116/61 Pulse Oximetry 93 88 L Oxygen Delivery Method Oxygen Flow Rate 06/10/22 14:26 06/10/22 14:26 06/10/22 14:30 Temperature Pulse Rate 75 72 Respiratory Rate 30 H 29 H Blood Pressure 111/53 L Pulse Oximetry 89 L 95 Oxygen Delivery Method Nasal Cannula Oxygen Flow Rate 1 06/10/22 14:31 06/10/22 14:31 06/10/22 14:35 Temperature Pulse Rate 73 Respiratory Rate 31 H Blood Pressure 95/53 L 89/52 L Pulse Oximetry 92 Oxygen Delivery Method Oxygen Flow Rate 06/10/22 14:35 06/10/22 14:38 06/10/22 14:38 Temperature Pulse Rate 84 74 Respiratory Rate 26 H Blood Pressure 87/59 L Pulse Oximetry 98 96 Oxygen Delivery Method Oxygen Flow Rate 06/10/22 14:39 06/10/22 14:39 06/10/22 14:40 Temperature Pulse Rate 74 72 Respiratory Rate 29 H 32 H Blood Pressure 94/53 L Pulse Oximetry 96 96 Oxygen Delivery Method Oxygen Flow Rate 06/10/22 14:41 06/10/22 14:41 06/10/22 14:45 Temperature Pulse Rate 74 71 Respiratory Rate Blood Pressure 106/58 L Pulse Oximetry 96 95 Oxygen Delivery Method Nasal Cannula Oxygen Flow Rate 1 06/10/22 14:46 06/10/22 14:46 06/10/22 14:47 Temperature Pulse Rate 72 Respiratory Rate 28 H 28 H Blood Pressure 88/50 L 90/51 L Pulse Oximetry 95 Oxygen Delivery Method Oxygen Flow Rate 06/10/22 14:47 06/10/22 14:48 06/10/22 14:48 Temperature Pulse Rate 73 71 Respiratory Rate 31 H 27 H Blood Pressure 108/58 L Pulse Oximetry 94 95 Oxygen Delivery Method Oxygen Flow Rate 06/10/22 14:50 06/10/22 14:50 06/10/22 14:55 Temperature Pulse Rate 71 Respiratory Rate 29 H Blood Pressure 91/56 L 93/54 L Pulse Oximetry 96 Oxygen Delivery Method Nasal Cannula Oxygen Flow Rate 1 06/10/22 14:55 06/10/22 15:00 06/10/22 15:00 Temperature Pulse Rate 69 71 Respiratory Rate 26 H 27 H Blood Pressure 108/81 Pulse Oximetry 95 94 Oxygen Delivery Method Oxygen Flow Rate 06/10/22 15:05 06/10/22 15:06 06/10/22 15:06 Temperature Pulse Rate 74 74 Respiratory Rate 26 H Blood Pressure 89/50 L Pulse Oximetry 96 97 Oxygen Delivery Method Nasal Cannula Oxygen Flow Rate 1 Sepsis Evaluation (ED) Triage Screening Sepsis Screen: No Definite Risk Level 1 - Infection Sepsis Infection Criteria Present: Suspected New Infection Response It is my opinion that his patient have a likely infectious etiology for meeting sepsis criteria: Does Fluid calculation based on 30 mL/kg within 1hr of criteria: ABW used Antibiotics initiated within 1 hr of Sepis dx: No Tissue Perfusion Reassessed within 6 hrs of infusion start time: No MDM - Sepsis Lab Data Result diagrams: 06/11/22 05:43 11/15/22 05:43 Labs: Lab Results 06/10/22 06/10/22 06/10/22 Range/Units 13:37 13:37 13:37 WBC 4.5 (4.5-11.0) X10^3/uL RBC 2.85 L (4.5-5.9) X10^6/uL Hgb 8.4 L (13.5-17.5) g/dL Hct 25.1 L (41-53) % MCV 88.1 (80-100) fL MCH 29.6 (26-34) PG MCHC 33.6 (30-36) % RDW 15.1 H (11.6-14.8) % Plt Count 172 (150-400) X10^3/uL Neut % (Auto) 58.5 (50-75) % Lymph % (Auto) 29.3 (25-40) % Dundy % (Auto) 10.0 (3-14) % Eos % (Auto) 1.9 L (2-4) % Baso % (Auto) 0.3 (0-2) % Neut # (Auto) 2600 (8704-2093) /uL Lymph # (Auto) 1300 (8518-4351) /uL Dundy # (Auto) 400 (0-900) /uL Eos # (Auto) 100 (0-450) /uL Baso # (Auto) 0 (0-100) /uL PT 12.4 (10.1-12.7) SECONDS INR 1.1 (0.9-1.3) APTT (26-36) SECONDS Sodium (137-145) mmol/L Potassium (3.4-5.1) mmol/L Chloride (98-107) mmol/L Carbon Dioxide (22-32) mmol/L BUN (9-20) mg/dL Creatinine (0.66-1.25) mg/dL Estimated GFR (>60) mL/min BUN/Creatinine Ratio (6-22) Glucose (80-110) mg/dL Lactate (0.7-2.1) mmol/L Calcium (8.4-10.2) mg/dL Total Bilirubin (0.2-1.3) mg/dL AST (17-59) IU/L ALT (<50) IU/L Alkaline Phosphatase (38-126) U/L Total Creatine Kinase (55-170) U/L CK-MB (CK-2) (<2.37) ng/mL CK-MB (CK-2) Rel Index (1.5-5.0) % Troponin I (0.01-0.034) ng/mL NT-Pro-B Natriuret Pep 367 (<450) pg/mL Total Protein (6.3-8.2) g/dL Albumin (3.5-5.0) g/dL Globulin (1.7-4.1) g/dL Albumin/Globulin Ratio (1.0-2.8) Procalcitonin (<0.5) ng/mL Urine Color Urine Appearance Urine pH (4.5-8.0) Ur Specific [place] (1.000-1.035) Urine Protein (Negative) Urine Glucose (UA) (Negative) g/dL Urine Ketones (NEGATIVE) Urine Occult Blood (Negative) Urine Nitrate (Negative) Urine Bilirubin (NEGATIVE) Urine Urobilinogen (0.2) E.U./dL Ur Leukocyte Esterase (NEGATIVE) Urine RBC (0-5/HPF) Urine WBC (0-5/HPF) Ur Squamous Epith Cells (0-5/HPF) Ur Transition Epith Cell Ur Renal Epithelial Cell Calcium Oxalate Crystal Uric Acid Crystals Triple Phos Crystals Other Crystals Amorphous Sediment Urine Bacteria (None) Hyaline Casts Granular Casts RBC Casts WBC Casts Other Casts Urine Mucus Urine Trichomonas Urine Yeast Urine Sperm Ur Culture Indicated? Micro UA Comment SARS-CoV-2 (PCR) (Negative) Influenza A (RT-PCR) (NEGATIVE) Influenza B (RT-PCR) (NEGATIVE) RSV (PCR) (Negative) 06/10/22 06/10/22 06/10/22 Range/Units 13:37 13:37 13:52 WBC (4.5-11.0) X10^3/uL RBC (4.5-5.9) X10^6/uL Hgb (13.5-17.5) g/dL Hct (41-53) % MCV (80-100) fL MCH (26-34) PG MCHC (30-36) % RDW (11.6-14.8) % Plt Count (150-400) X10^3/uL Neut % (Auto) (50-75) % Lymph % (Auto) (25-40) % Dundy % (Auto) (3-14) % Eos % (Auto) (2-4) % Baso % (Auto) (0-2) % Neut # (Auto) (5747-1042) /uL Lymph # (Auto) (4835-3439) /uL Dundy # (Auto) (0-900) /uL Eos # (Auto) (0-450) /uL Baso # (Auto) (0-100) /uL PT (10.1-12.7) SECONDS INR (0.9-1.3) APTT 26 (26-36) SECONDS Sodium 140 (137-145) mmol/L Potassium 3.5 (3.4-5.1) mmol/L Chloride 104 (98-107) mmol/L Carbon Dioxide 21 L (22-32) mmol/L BUN 50 H (9-20) mg/dL Creatinine 1.77 H (0.66-1.25) mg/dL Estimated GFR 39 L (>60) mL/min BUN/Creatinine Ratio 28.2 H (6-22) Glucose 135 H (80-110) mg/dL Lactate 1.3 (0.7-2.1) mmol/L Calcium 8.1 L (8.4-10.2) mg/dL Total Bilirubin 0.1 L (0.2-1.3) mg/dL AST 36 (17-59) IU/L ALT 32 (<50) IU/L Alkaline Phosphatase 68 (38-126) U/L Total Creatine Kinase 167 (55-170) U/L CK-MB (CK-2) 3.82 H (<2.37) ng/mL CK-MB (CK-2) Rel Index 2.3 (1.5-5.0) % Troponin I < 0.012 (0.01-0.034) ng/mL NT-Pro-B Natriuret Pep (<450) pg/mL Total Protein 7.0 (6.3-8.2) g/dL Albumin 3.9 (3.5-5.0) g/dL Globulin 3.1 (1.7-4.1) g/dL Albumin/Globulin Ratio 1.3 (1.0-2.8) Procalcitonin 0.12 (<0.5) ng/mL Urine Color Urine Appearance Urine pH (4.5-8.0) Ur Specific [place] (1.000-1.035) Urine Protein (Negative) Urine Glucose (UA) (Negative) g/dL Urine Ketones (NEGATIVE) Urine Occult Blood (Negative) Urine Nitrate (Negative) Urine Bilirubin (NEGATIVE) Urine Urobilinogen (0.2) E.U./dL Ur Leukocyte Esterase (NEGATIVE) Urine RBC (0-5/HPF) Urine WBC (0-5/HPF) Ur Squamous Epith Cells (0-5/HPF) Ur Transition Epith Cell Ur Renal Epithelial Cell Calcium Oxalate Crystal Uric Acid Crystals Triple Phos Crystals Other Crystals Amorphous Sediment Urine Bacteria (None) Hyaline Casts Granular Casts RBC Casts WBC Casts Other Casts Urine Mucus Urine Trichomonas Urine Yeast Urine Sperm Ur Culture Indicated? Micro UA Comment SARS-CoV-2 (PCR) (Negative) Influenza A (RT-PCR) (NEGATIVE) Influenza B (RT-PCR) (NEGATIVE) RSV (PCR) (Negative) 06/10/22 06/10/22 06/10/22 Range/Units 13:54 14:30 14:30 WBC (4.5-11.0) X10^3/uL RBC (4.5-5.9) X10^6/uL Hgb (13.5-17.5) g/dL Hct (41-53) % MCV (80-100) fL MCH (26-34) PG MCHC (30-36) % RDW (11.6-14.8) % Plt Count (150-400) X10^3/uL Neut % (Auto) (50-75) % Lymph % (Auto) (25-40) % [place] % (Auto) (3-14) % Eos % (Auto) (2-4) % Baso % (Auto) (0-2) % Neut # (Auto) (6974-7444) /uL Lymph # (Auto) (9695-8946) /uL [place] # (Auto) (0-900) /uL Eos # (Auto) (0-450) /uL Baso # (Auto) (0-100) /uL PT (10.1-12.7) SECONDS INR (0.9-1.3) APTT (26-36) SECONDS Sodium (137-145) mmol/L Potassium (3.4-5.1) mmol/L Chloride (98-107) mmol/L Carbon Dioxide (22-32) mmol/L BUN (9-20) mg/dL Creatinine (0.66-1.25) mg/dL Estimated GFR (>60) mL/min BUN/Creatinine Ratio (6-22) Glucose (80-110) mg/dL Lactate (0.7-2.1) mmol/L Calcium (8.4-10.2) mg/dL Total Bilirubin (0.2-1.3) mg/dL AST (17-59) IU/L ALT (<50) IU/L Alkaline Phosphatase (38-126) U/L Total Creatine Kinase (55-170) U/L CK-MB (CK-2) (<2.37) ng/mL CK-MB (CK-2) Rel Index (1.5-5.0) % Troponin I (0.01-0.034) ng/mL NT-Pro-B Natriuret Pep (<450) pg/mL Total Protein (6.3-8.2) g/dL Albumin (3.5-5.0) g/dL Globulin (1.7-4.1) g/dL Albumin/Globulin Ratio (1.0-2.8) Procalcitonin (<0.5) ng/mL Urine Color Yellow Urine Appearance Clear Urine pH 6.0 (4.5-8.0) Ur Specific [place] 1.010 (1.000-1.035) Urine Protein Trace H (Negative) Urine Glucose (UA) Negative (Negative) g/dL Urine Ketones Negative (NEGATIVE) Urine Occult Blood 1+ H (Negative) Urine Nitrate Negative (Negative) Urine Bilirubin Negative (NEGATIVE) Urine Urobilinogen 0.2 (0.2) E.U./dL Ur Leukocyte Esterase 2+ H (NEGATIVE) Urine RBC 5-10/hpf H Cancelled (0-5/HPF) Urine WBC 10-30/hpf H Cancelled (0-5/HPF) Ur Squamous Epith Cells None seen Cancelled (0-5/HPF) Ur Transition Epith Cell Cancelled Ur Renal Epithelial Cell Cancelled Calcium Oxalate Crystal Cancelled Uric Acid Crystals Cancelled Triple Phos Crystals Cancelled Other Crystals Cancelled Amorphous Sediment Cancelled Urine Bacteria Occasional (0-1) Cancelled (None) Hyaline Casts Cancelled Granular Casts Cancelled RBC Casts Cancelled WBC Casts Cancelled Other Casts Cancelled Urine Mucus Cancelled Urine Trichomonas Cancelled Urine Yeast Cancelled Urine Sperm Cancelled Ur Culture Indicated? Specimen cultured Cancelled Micro UA Comment Cancelled SARS-CoV-2 (PCR) Positive H (Negative) Influenza A (RT-PCR) Flu a negative (NEGATIVE) Influenza B (RT-PCR) Flu b negative (NEGATIVE) RSV (PCR) Negative (Negative) Urine Dip Bedside Urine Glucose Negative Bedside Urine Bilirubin - Negative Bedside Urine Ketone - Negative Urine Specific [place] 1.015 Bedside Urine Occult Blood ++ Bedside Urine pH 6 Bedside Urine Protein +/- 15 Bedside Urine Urobilinogen - Negative Bedside Urine Nitrite - Negative Bedside Urine Leukocytes ++ 125 Esterase Imaging Data renal US: Radiologist's Impression: [address] [address] Ultrasound Report Signed Patient: Shantanu Underwood MR#: [id number] : 1945 Acct:[id number] Age/Sex: 77 / M Date of Service: 06/10/22 Loc: 90A-1 Accession Number: [id number] ?? Procedure: US renal complete Ordering Provider: Savanah Álvarez D.O. PROCEDURE:? US RENAL COMPLETE ? INDICATIONS:? HISTORY OF KIDNEY STONE ? TECHNIQUE:? Real-time scanning was performed of the kidneys and bladder, with image documentation.? ? COMPARISON:? [facility], , US RENAL COMPLETE, 05/22/2022, 13:06. ? FINDINGS:? ? Kidneys:? Kidneys are normal in size.? Right kidney measures 12.4 cm long; left kidney measures 9.2 cm long.? Right renal cortical thickness is 1.6 cm; left renal cortical thickness is 1.2 cm.? Renal cortical echotexture is normal.? No hydronephrosis or nephrolithiasis.? No suspicious solid mass lesions.? ? Bladder:? Evaluation of the bladder is limited secondary to decompression with Spear catheter. ? Miscellaneous:? No free pelvic fluid.? ? IMPRESSION:? Previously identified echogenic renal foci suspicious for stones are not seen on current exam. ? ? Dictated by: Yasmeen Saini M.D. on 06/10/2022 at 16:05 ? ? Approved by: Yasmeen Saini M.D. on 06/10/2022 at 16:06?? ECG Data Attestation: I personally reviewed and interpreted this ECG as follows: Interpretation: Sinus rhythm rate of 60 9p are 142 QRS 88 QTC 471. No acute ST elevation/depression appreciated. Patient has prior from 05/24/2022 with no acute changes. MDM Narrative Medical decision making narrative: This is a 77-year-old male who presents with altered mental status at, hypotension does seem to be fluid responsive. Patient has been afebrile he does not have any specific complaints. He did have recent acute hypoxic respiratory failure secondary with CHF and hyperkalemia and was discharged home on May 27, in March had what sounds like septic shock with obstructive kidney stone was transferred to [facility] and had NSTEMI and had cardiac stents placed. Patient labs so far show creatinine of 1.77 which appears improved from prior that was 2, is 8.4 but at baseline would not transfuse currently but may require if patient's pressures do not improve or he has other changes. White count 4.5 platelets are 172, electrolytes are appropriate, BUN is 50, lactate 1.3 with a negative troponin and a BNP of 367 and a pro count of 0.12 chest x- ray shows possible pneumonia patient is recently diagnosed COVID positive and positive here in the department. Urinalysis is pending, spoke with hospitalist who asked for renal ultrasound patient has been receiving fluids was quite labile in his blood pressures on his last day so holding off on pressors currently but may be initiated. Renal US shows no hydro or changes consistent with current stone. Critical Care Time Critical Care Time Critical Care Time: Yes Total Critical Care Time: 35 Attestation: The high probability of a clinically significant, sudden or life threatening deterioration of the [] system(s) required my full and direct attention, intervention and personal management. The aggregate critical care time was [] minutes. This time is in addition to time spent performing reported procedures but includes the following: [x] Data Review and interpretation [x] Patient assessment and monitoring of vital signs [x] Documentation [x] Medication orders and management Discharge Plan Departure Patient Disposition: Admitted As Inpatient Clinical Impression: COVID-19 virus infection, Hypotension, Pneumonia Admit Date/Time: 06/10/22 15:08 Admit Provider: Tang Albarran
[2022-06-10 14:07] LABS: INR 1.1 (0.9-1.3); Prothrombin Time 12.4 SECONDS (10.1-12.7)
[2022-06-10 14:10] LABS: Add Manual Diff / Slide Review NO; Basophils Absolute Auto 0 /uL (0-100); Basophils Percent Auto 0.3 % (0-2); Eosinophils Absolute Auto 100 /uL (0-450); Eosinophils Percent Auto 1.9 % (2-4); Hematocrit 25.1 % (41-53); Hemoglobin 8.4 g/dL (13.5-17.5); Lymphocytes Absolute Auto 1300 /uL (1100-4500); Lymphocytes Percent Auto 29.3 % (25-40); Mean Corpuscular HGB Conc 33.6 % (30-36); Mean Corpuscular Hemoglobin 29.6 PG (26-34); Mean Corpuscular Volume 88.1 fL (80-100); Monocytes Absolute Auto 400 /uL (0-900); Neutrophils Absolute Auto 2600 /uL (1500-7000); Neutrophils Percent Auto 58.5 % (50-75); PTT Partial Thromboplastin Tim 26 SECONDS (26-36); Platelet Count 172 X10^3/uL (150-400); Red Blood Cell Count 2.85 X10^6/uL (4.5-5.9); Red Cell Distribution Width 15.1 % (11.6-14.8); White Blood Cell Count 4.5 X10^3/uL (4.5-11.0)
[2022-06-10 14:22] LABS: Alanine Aminotransferase 32 IU/L (<50); Albumin 3.9 g/dL (3.5-5.0); Albumin Globulin Ratio 1.3 (1.0-2.8); Alkaline Phosphatase 68 U/L (38-126); Aspartate Aminotransferase 36 IU/L (17-59); BUN Creatinine Ratio 28.2 (6-22); Bilirubin Total 0.1 mg/dL (0.2-1.3); Blood Urea Nitrogen 50 mg/dL (9-20); Calcium 8.1 mg/dL (8.4-10.2); Carbon Dioxide 21 mmol/L (22-32); Chloride 104 mmol/L (98-107); Creatine Kinase 167 U/L (55-170); Estimated Glomerular Filt Rate 39 mL/min (>60); Globulin 3.1 g/dL (1.7-4.1); Glucose 135 mg/dL (80-110); HEMOLYSIS < 15 (0-50); Potassium 3.5 mmol/L (3.4-5.1); Sodium 140 mmol/L (137-145)
[2022-06-10] MEDS: SODIUM CHLORIDE 0.9% 1,914 ML 638 ML IV (14:23)
[2022-06-10 14:24] LABS: NT-proBNP (BNP-Adult 18+) 367 pg/mL (<450)
[2022-06-10 14:25] LABS: Lactate (Lactic Acid) 1.3 mmol/L (0.7-2.1)
[2022-06-10 14:28] LABS: Troponin I < 0.012 ng/mL (0.01-0.034)
[2022-06-10 14:32] LABS: Procalcitonin 0.12 ng/mL (<0.5)
[2022-06-10 14:41] LABS: Influenza A - CEPHEID Flu A NEGATIVE (NEGATIVE); Influenza B - CEPHEID Flu B NEGATIVE (NEGATIVE); Respiratory Syncytial Virus Negative (Negative)
[2022-06-10 14:43] LABS: COVID-19 CEPHEID 4-PLEX PCR POSITIVE (Negative)
[2022-06-10 14:44] LABS: CKMB % Relative Index 2.3 % (1.5-5.0); Creatine Kinase MB 3.82 ng/mL (<2.37)
--- NOTE | 2022-06-10 14:55 | DI.US.S_ITS ---
PROCEDURE: US RENAL COMPLETE INDICATIONS: HISTORY OF KIDNEY STONE TECHNIQUE: Real-time scanning was performed of the kidneys and bladder, with image documentation. COMPARISON: [facility], , US RENAL COMPLETE, 05/22/2022, 13:06. FINDINGS: Kidneys: Kidneys are normal in size. Right kidney measures 12.4 cm long; left kidney measures 9.2 cm long. Right renal cortical thickness is 1.6 cm; left renal cortical thickness is 1.2 cm. Renal cortical echotexture is normal. No hydronephrosis or nephrolithiasis. No suspicious solid mass lesions. Bladder: Evaluation of the bladder is limited secondary to decompression with Spear catheter. Miscellaneous: No free pelvic fluid. IMPRESSION: Previously identified echogenic renal foci suspicious for stones are not seen on current exam. Dictated by: Yasmeen Saini M.D. on 06/10/2022 at 16:05 Approved by: Yasmeen Saini M.D. on 06/10/2022 at 16:06
[2022-06-10] MEDS: CEFEPIME 2 GM in SODIUM CHLORIDE 0.9% 100 ML IV (15:04)
[2022-06-10] MEDS: VANCOMYCIN 1,000 MG/200 ML PIGGYBACK 200 MG IV (15:15)
[2022-06-10 15:40] LABS: Appearance Urine UA CLEAR; Bilirubin Urine UA NEGATIVE (NEGATIVE); Color Urine UA YELLOW; Glucose Urine UA NEGATIVE (Negative); Ketones Urine UA NEGATIVE (NEGATIVE); Leukocyte Esterase Urine UA 2+ (NEGATIVE); Nitrite Urine UA NEGATIVE (Negative); Occult Blood Urine UA 1+ (Negative); Protein Urine UA TRACE (Negative); Urobilinogen Urine UA 0.2 E.U./dL (0.2)
[2022-06-10 16:04] LABS: Bacteria Urine Occasional (0-1); Culture Indicated Urine Specimen Cultured; RBC Urine 5-10/HPF (0-5/HPF); Squamous Epithelial Cell Urine None Seen (0-5/HPF); WBC Urine 10-30/HPF (0-5/HPF)
--- NOTE | 2022-06-10 18:05 | P.HP_ITS ---
History of Present Illness History of Present Illness Date Patient Seen: 06/10/22 Time Patient Seen: 18:05 Chief complaint: sepsis, poorly responsive, desaturation Narrative: Shantanu Underwood is a 69-year-old male history of Maoyfez-Wdiow-Jfgdr dz with related chronic muscular deconditioning/weakness, chronic left diaphragmatic paralysis, PVD, HLD, sleep apnea, RLS, colon cancer, DM type 2, hypertension, obstructive bilateral nephrolithiasis with stents, recent NSTEMI, with heart stents x2 (plavix/ASA), gouty arthritis and trophi gout who was brought to the [facility] by EMS with lethargy and hypotension. He was recently admitted for possible septic shock and heart failure and was discharged to SNF on 05/27/22. Per patient he was discharged from SNF about 3 days ago, was getting home health evaluation and PT but was hypotensive and not as alert so family called EMS. He denies recent complaints including chest pain, shortness of breath, nausea, vomiting. He developed a cough today that has been non-productive, he denies lower extremity edema or orthopna. He has had a sequeira for some time now, thinks it might have been changed last a month ago, his urine has been slightly cloudy but he is not able to state how long. In the emergency room, he was noted to be intermittently hypoxic on room air, improved to 2L. He was mildly hypotensive but responded to fluid boluses. Laboratory evaluation revealed no leukocytosis, a stable chronic anemia with a hemoglobin of 8.4, improved creatinine prior discharge at 1.77, and no other significant lab abnormalities. Urinalysis showed 5-10 RBCs and 10-30 wbc's and was reflex for culture. COVID-19 testing was positive (new diagnosis), and his also reportedly tested positive as well. Patient History Medical History Anticoagulated on heparin Arthritis Bilateral nephrolithiasis Snmcdkb-Xkxkn-Byeur disease Colon cancer Diabetes mellitus treated with oral medication Hernia History of non-ST elevation myocardial infarction (NSTEMI) History of renal calculi Hypertension, essential Mixed hyperlipidemia Peripheral vascular disease of extremity Sleep apnea in adult Surgical History History of heart artery stent Hx of cystoscopy (10/16/21) Hx of cystoscopy (12/03/21) Hx of cystoscopy (03/25/22) S/P ureteral stent placement Status post colectomy (~1995) Status post vascular bypass Family & Social History Family History Father Ulcer History of blood clots Mother No known problems Social History: household members spouse lives independently Yes Safety & Behavioral: Feels Safe in Current Yes Environment Been Physically Hurt or No Threatened By a Person Tobacco & Substance use: Tobacco type cigarettes Smoking Status Former smoker alcohol intake current alcohol intake frequency a few times a month Substance Use Type does not use Meds Home Medications and Allergies Home Medications Medication Instructions Recorded Confirmed Type clopidogrel 75 mg tablet (Plavix) 75 mg PO DAILY #90 tabs 05/31/21 06/10/22 Rx albuterol sulfate 90 mcg/actuation 1 puff inhalation Q6H PRN 08/30/21 06/10/22 Rx aerosol inhaler (ProAir HFA) shortness of breath or wheezing #8.5 grams amiodarone 200 mg tablet 200 mg PO DAILY 05/22/22 06/10/22 History metoprolol succinate 25 mg 25 mg PO DAILY 05/22/22 06/10/22 History tablet,extended release 24 hr aspirin 81 mg tablet,delayed 81 mg PO DAILY #10 tabs 05/27/22 06/10/22 Rx release polyethylene glycol 3350 17 gram 17 gm PO DAILY PRN Constipation 05/27/22 06/10/22 Rx oral powder packet #10 ea ropinirole 1 mg tablet 1 mg PO BEDTIME #10 tabs 05/27/22 06/10/22 Rx acetaminophen 325 mg tablet 500 mg PO Q6H PRN Fever/Mild Pain 06/10/22 06/10/22 History (1-3) furosemide 40 mg tablet 20 mg PO DAILY 06/10/22 06/10/22 History losartan 25 mg tablet 25 mg PO DAILY 06/10/22 06/10/22 History Allergies Allergy/AdvReac Type Severity Reaction Status Date / Time No Known Drug Allergies Allergy Verified 05/21/22 10:51 Review of Systems Review of Systems Narrative: All other systems reviewed with the patient and are negative unless otherwise stated. Exam Vital Signs (past 8 hours): - 06/10/22 13:34 06/10/22 13:40 06/10/22 14:00 Temperature 97.6 F Pulse Rate 71 69 71 Respiratory Rate 22 32 H 25 H Blood Pressure 123/58 L Pulse Oximetry 98 97 96 Oxygen Delivery Method Room Air Oxygen Flow Rate 06/10/22 14:13 06/10/22 14:15 06/10/22 14:15 Temperature Pulse Rate 70 70 Respiratory Rate 29 H 27 H Blood Pressure 105/58 L Pulse Oximetry 96 96 Oxygen Delivery Method Oxygen Flow Rate 06/10/22 14:20 06/10/22 14:20 06/10/22 14:25 Temperature Pulse Rate 81 74 Respiratory Rate 28 H 25 H Blood Pressure 116/61 Pulse Oximetry 93 88 L Oxygen Delivery Method Oxygen Flow Rate 06/10/22 14:26 06/10/22 14:26 06/10/22 14:30 Temperature Pulse Rate 75 72 Respiratory Rate 30 H 29 H Blood Pressure 111/53 L Pulse Oximetry 89 L 95 Oxygen Delivery Method Nasal Cannula Oxygen Flow Rate 1 06/10/22 14:31 06/10/22 14:31 06/10/22 14:35 Temperature Pulse Rate 73 Respiratory Rate 31 H Blood Pressure 95/53 L 89/52 L Pulse Oximetry 92 Oxygen Delivery Method Oxygen Flow Rate 06/10/22 14:35 06/10/22 14:38 06/10/22 14:38 Temperature Pulse Rate 84 74 Respiratory Rate 26 H Blood Pressure 87/59 L Pulse Oximetry 98 96 Oxygen Delivery Method Oxygen Flow Rate 06/10/22 14:39 06/10/22 14:39 06/10/22 14:40 Temperature Pulse Rate 74 72 Respiratory Rate 29 H 32 H Blood Pressure 94/53 L Pulse Oximetry 96 96 Oxygen Delivery Method Oxygen Flow Rate 06/10/22 14:41 06/10/22 14:41 06/10/22 14:45 Temperature Pulse Rate 74 71 Respiratory Rate Blood Pressure 106/58 L Pulse Oximetry 96 95 Oxygen Delivery Method Nasal Cannula Oxygen Flow Rate 1 06/10/22 14:46 06/10/22 14:46 06/10/22 14:47 Temperature Pulse Rate 72 Respiratory Rate 28 H 28 H Blood Pressure 88/50 L 90/51 L Pulse Oximetry 95 Oxygen Delivery Method Oxygen Flow Rate 06/10/22 14:47 06/10/22 14:48 06/10/22 14:48 Temperature Pulse Rate 73 71 Respiratory Rate 31 H 27 H Blood Pressure 108/58 L Pulse Oximetry 94 95 Oxygen Delivery Method Oxygen Flow Rate 06/10/22 14:50 06/10/22 14:50 06/10/22 14:55 Temperature Pulse Rate 71 Respiratory Rate 29 H Blood Pressure 91/56 L 93/54 L Pulse Oximetry 96 Oxygen Delivery Method Nasal Cannula Oxygen Flow Rate 1 06/10/22 14:55 06/10/22 15:00 06/10/22 15:00 Temperature Pulse Rate 69 71 Respiratory Rate 26 H 27 H Blood Pressure 108/81 Pulse Oximetry 95 94 Oxygen Delivery Method Oxygen Flow Rate 06/10/22 15:05 06/10/22 15:06 06/10/22 15:06 Temperature Pulse Rate 74 74 Respiratory Rate 26 H Blood Pressure 89/50 L Pulse Oximetry 96 97 Oxygen Delivery Method Nasal Cannula Oxygen Flow Rate 1 06/10/22 15:10 06/10/22 15:10 06/10/22 15:15 Temperature Pulse Rate 71 Respiratory Rate 28 H Blood Pressure 98/56 L 108/61 Pulse Oximetry 95 Oxygen Delivery Method Oxygen Flow Rate 06/10/22 15:15 06/10/22 15:20 06/10/22 15:20 Temperature Pulse Rate 72 76 Respiratory Rate 30 H Blood Pressure 111/57 L Pulse Oximetry 97 97 Oxygen Delivery Method Oxygen Flow Rate 06/10/22 15:25 06/10/22 15:25 06/10/22 15:30 Temperature Pulse Rate 91 H 85 Respiratory Rate 33 H Blood Pressure 96/50 L Pulse Oximetry 92 97 Oxygen Delivery Method Oxygen Flow Rate 06/10/22 15:31 06/10/22 15:31 06/10/22 15:35 Temperature Pulse Rate 92 H 87 Respiratory Rate Blood Pressure 124/59 L Pulse Oximetry 95 94 Oxygen Delivery Method Oxygen Flow Rate 06/10/22 15:36 06/10/22 15:36 06/10/22 15:40 Temperature Pulse Rate 86 80 Respiratory Rate Blood Pressure 150/82 H Pulse Oximetry 95 95 Oxygen Delivery Method Nasal Cannula Oxygen Flow Rate 1 06/10/22 15:44 06/10/22 15:44 06/10/22 15:45 Temperature Pulse Rate 77 76 Respiratory Rate Blood Pressure 112/73 Pulse Oximetry 95 94 Oxygen Delivery Method Oxygen Flow Rate 06/10/22 15:49 06/10/22 15:49 06/10/22 15:50 Temperature Pulse Rate 78 77 Respiratory Rate 30 H 28 H Blood Pressure 110/58 L Pulse Oximetry 94 95 Oxygen Delivery Method Oxygen Flow Rate 06/10/22 15:51 06/10/22 15:51 06/10/22 15:55 Temperature Pulse Rate 77 78 Respiratory Rate 31 H Blood Pressure 99/55 L Pulse Oximetry 94 94 Oxygen Delivery Method Oxygen Flow Rate 06/10/22 15:56 06/10/22 15:56 06/10/22 16:00 Temperature Pulse Rate 78 Respiratory Rate 38 H Blood Pressure 113/74 121/73 Pulse Oximetry 94 Oxygen Delivery Method Oxygen Flow Rate 06/10/22 16:00 06/10/22 16:05 06/10/22 16:07 Temperature Pulse Rate 75 82 79 Respiratory Rate 30 H 26 H Blood Pressure Pulse Oximetry 95 96 96 Oxygen Delivery Method Nasal Cannula Oxygen Flow Rate 1 06/10/22 16:07 06/10/22 16:30 06/10/22 16:54 Temperature 98.1 F Pulse Rate 76 Respiratory Rate 17 Blood Pressure 98/55 L 131/60 Pulse Oximetry 95 Oxygen Delivery Method Room Air Oxygen Flow Rate 0 06/10/22 17:00 06/10/22 17:35 06/10/22 17:11 Temperature Pulse Rate 79 80 Respiratory Rate 16 31 H Blood Pressure 104/58 L Pulse Oximetry 98 100 96 Oxygen Delivery Method Nasal Cannula Oxygen Flow Rate 2 06/10/22 17:15 06/10/22 17:20 06/10/22 17:25 Temperature Pulse Rate 79 108 H 126 H Respiratory Rate 31 H 38 H 37 H Blood Pressure Pulse Oximetry 96 95 Oxygen Delivery Method Oxygen Flow Rate 06/10/22 17:30 06/10/22 17:32 06/10/22 17:32 Temperature Pulse Rate 73 72 Respiratory Rate 24 30 H Blood Pressure 125/72 Pulse Oximetry 96 99 Oxygen Delivery Method Oxygen Flow Rate 06/10/22 18:00 06/10/22 17:35 06/10/22 17:40 Temperature Pulse Rate 71 71 Respiratory Rate 27 H 25 H Blood Pressure Pulse Oximetry 98 99 98 Oxygen Delivery Method Room Air Oxygen Flow Rate 0 06/10/22 17:45 06/10/22 17:50 06/10/22 17:55 Temperature Pulse Rate 72 72 79 Respiratory Rate 20 Blood Pressure Pulse Oximetry 97 97 Oxygen Delivery Method Oxygen Flow Rate Oxygen Delivery Method Room Air Oxygen Flow Rate 0 Narrative Exam Narrative: General:? Patient is well developed and well nourished, in no distress at this time. HEENT:? Normocephalic, atraumatic, extraocular muscles intact, oral pharynx is clear and mucous membranes are moist. Neck: supple and symmetric, trachea is midline, no cervical adenopathy. Negative for JVD Chest:? Normal AP diameter and contour without kyphoscoliosis, no tachypnea, equal chest rise bilaterally. Lungs:? CTA b/l no wheezing rhonchi or rales. Cardio:?RRR no m/r/g. Abdomen: S NT ND Musculoskeletal:? Muscle strength and tone are equal within normal limits, no deformity. Extremities: No edema or joint effusions. No cyanosis or clubbing. Skin:? Pale,? Warm to touch,dry and intact without rashes, ulcerations or petechiae.? Neuro:? Alert and orientated x3, though slightly confused and falls asleep easily.? no gross deficits noted of cranial nerves. Bilateral LE weakness, chronic. Psych:?Calm and cooperative with stable behavior. Objective Labs Result Diagrams: 06/10/22 13:37 06/10/22 13:37 Labs: Laboratory Results - last 24 hr 06/10/22 06/10/22 06/10/22 13:37 13:37 13:37 WBC 4.5 RBC 2.85 L Hgb 8.4 L Hct 25.1 L MCV 88.1 MCH 29.6 MCHC 33.6 RDW 15.1 H Plt Count 172 Neut % (Auto) 58.5 Lymph % (Auto) 29.3 [place] % (Auto) 10.0 Eos % (Auto) 1.9 L Baso % (Auto) 0.3 Neut # (Auto) 2600 Lymph # (Auto) 1300 [place] # (Auto) 400 Eos # (Auto) 100 Baso # (Auto) 0 PT 12.4 INR 1.1 APTT Sodium Potassium Chloride Carbon Dioxide BUN Creatinine Estimated GFR BUN/Creatinine Ratio Glucose Lactate Calcium Total Bilirubin AST ALT Alkaline Phosphatase Total Creatine Kinase CK-MB (CK-2) CK-MB (CK-2) Rel Index Troponin I NT-Pro-B Natriuret Pep 367 Total Protein Albumin Globulin Albumin/Globulin Ratio Procalcitonin Urine Color Urine Appearance Urine pH Ur Specific [place] Urine Protein Urine Glucose (UA) Urine Ketones Urine Occult Blood Urine Nitrate Urine Bilirubin Urine Urobilinogen Ur Leukocyte Esterase Urine RBC Urine WBC Ur Squamous Epith Cells Ur Transition Epith Cell Ur Renal Epithelial Cell Calcium Oxalate Crystal Uric Acid Crystals Triple Phos Crystals Other Crystals Amorphous Sediment Urine Bacteria Hyaline Casts Granular Casts RBC Casts WBC Casts Other Casts Urine Mucus Urine Trichomonas Urine Yeast Urine Sperm Ur Culture Indicated? Micro UA Comment SARS-CoV-2 (PCR) Influenza A (RT-PCR) Influenza B (RT-PCR) RSV (PCR) 06/10/22 06/10/22 06/10/22 13:37 13:37 13:52 WBC RBC Hgb Hct MCV MCH MCHC RDW Plt Count Neut % (Auto) Lymph % (Auto) [place] % (Auto) Eos % (Auto) Baso % (Auto) Neut # (Auto) Lymph # (Auto) [place] # (Auto) Eos # (Auto) Baso # (Auto) PT INR APTT 26 Sodium 140 Potassium 3.5 Chloride 104 Carbon Dioxide 21 L BUN 50 H Creatinine 1.77 H Estimated GFR 39 L BUN/Creatinine Ratio 28.2 H Glucose 135 H Lactate 1.3 Calcium 8.1 L Total Bilirubin 0.1 L AST 36 ALT 32 Alkaline Phosphatase 68 Total Creatine Kinase 167 CK-MB (CK-2) 3.82 H CK-MB (CK-2) Rel Index 2.3 Troponin I < 0.012 NT-Pro-B Natriuret Pep Total Protein 7.0 Albumin 3.9 Globulin 3.1 Albumin/Globulin Ratio 1.3 Procalcitonin 0.12 Urine Color Urine Appearance Urine pH Ur Specific [place] Urine Protein Urine Glucose (UA) Urine Ketones Urine Occult Blood Urine Nitrate Urine Bilirubin Urine Urobilinogen Ur Leukocyte Esterase Urine RBC Urine WBC Ur Squamous Epith Cells Ur Transition Epith Cell Ur Renal Epithelial Cell Calcium Oxalate Crystal Uric Acid Crystals Triple Phos Crystals Other Crystals Amorphous Sediment Urine Bacteria Hyaline Casts Granular Casts RBC Casts WBC Casts Other Casts Urine Mucus Urine Trichomonas Urine Yeast Urine Sperm Ur Culture Indicated? Micro UA Comment SARS-CoV-2 (PCR) Influenza A (RT-PCR) Influenza B (RT-PCR) RSV (PCR) 06/10/22 06/10/22 06/10/22 13:54 14:30 14:30 WBC RBC Hgb Hct MCV MCH MCHC RDW Plt Count Neut % (Auto) Lymph % (Auto) [place] % (Auto) Eos % (Auto) Baso % (Auto) Neut # (Auto) Lymph # (Auto) [place] # (Auto) Eos # (Auto) Baso # (Auto) PT INR APTT Sodium Potassium Chloride Carbon Dioxide BUN Creatinine Estimated GFR BUN/Creatinine Ratio Glucose Lactate Calcium Total Bilirubin AST ALT Alkaline Phosphatase Total Creatine Kinase CK-MB (CK-2) CK-MB (CK-2) Rel Index Troponin I NT-Pro-B Natriuret Pep Total Protein Albumin Globulin Albumin/Globulin Ratio Procalcitonin Urine Color Yellow Urine Appearance Clear Urine pH 6.0 Ur Specific [place] 1.010 Urine Protein Trace H Urine Glucose (UA) Negative Urine Ketones Negative Urine Occult Blood 1+ H Urine Nitrate Negative Urine Bilirubin Negative Urine Urobilinogen 0.2 Ur Leukocyte Esterase 2+ H Urine RBC 5-10/hpf H Cancelled Urine WBC 10-30/hpf H Cancelled Ur Squamous Epith Cells None seen Cancelled Ur Transition Epith Cell Cancelled Ur Renal Epithelial Cell Cancelled Calcium Oxalate Crystal Cancelled Uric Acid Crystals Cancelled Triple Phos Crystals Cancelled Other Crystals Cancelled Amorphous Sediment Cancelled Urine Bacteria Occasional (0-1) Cancelled Hyaline Casts Cancelled Granular Casts Cancelled RBC Casts Cancelled WBC Casts Cancelled Other Casts Cancelled Urine Mucus Cancelled Urine Trichomonas Cancelled Urine Yeast Cancelled Urine Sperm Cancelled Ur Culture Indicated? Specimen cultured Cancelled Micro UA Comment Cancelled SARS-CoV-2 (PCR) Positive H Influenza A (RT-PCR) Flu a negative Influenza B (RT-PCR) Flu b negative RSV (PCR) Negative Assessment & Plan Assessment & Plan narrative: Shantanu Underwood is a 69-year-old male history of Hoykurc-Xjeai-Celhz dz with related chronic muscular deconditioning/weakness, chronic left diaphragmatic paralysis, PVD, HLD, CHFpEF, chronic afib, sleep apnea, RLS, colon cancer, DM type 2, hypertension, obstructive bilateral nephrolithiasis with stents, recent NSTEMI, with heart stents x2 (plavix/ASA), gouty arthritis and trophi gout who was brought to the ER by EMS with lethargy and hypotension. Admitted with sepsis. 1. Sepsis secondary to acute cystitis secondary to indwelling sequeira catheter, possible pneumonia / COVID contributing, with acute metabolic encephalopathy, resolved acute respiratory failure with hypoxia and hypotension - CXR shows LLL infiltrate, COVID testing positive but suspect more likely possible CAP or HCAP given recent frequent contact with healthcare system - organ dysfunction includes acute encephalopathy with GCS 14 and hypotension and brief acute respiratory failure with hypoxia now resolved. SOFA score of 4. Elevated creatinine contributes to risk but is improved from prior admission. - continue broad spectrum antibiotics with cefepime and vanco pending culture data - urine also appears infected, sequeira has not been changed since previous admission late april. - will change sequeira now - renal ultrasound without acute obstruction - PT/OT 2. COVID 19 infection with possible superimposed bacterial pneumonia with brief acute respiratory failure with hypoxia. - continue antibiotics as noted above. - currently with only cough, no longer hypoxic on the hospital floor. imaging appearance and course not consistent with COVID, will avoid dexamethasone and remdesevir at this time as risk outweighs any possible benefit. 3. Chronic anemia - appears stable from prior admission, suspect anemia of chronic inflammation. HG 8.4. 4. Chronic diastolic heart failure - hold home furosemide given hypotension 5. RLS - continue home ropinorole. 6. PVD - continue asa and plavix. 7. chronic afib - continue home metoprolol and amiodarone. - not on AC Due to chronic anemia. I have utilized all available immediate resources to obtain, update, or review the patient's current medications. Code:DNR , surrogate is patient's DVT: lovenox Dispo: Patient admitted under inpatient status given complexity of his acute medical illness and chronic comorbidities with an expected stay of at least two midnights. COVID-19 COVID-19 status: Positive Time Spent With Patient Critical Care time: I spent a total of [] minutes of critical care time on this patient's care today; this time is exclusive of procedural time. Quality VTE Deep Vein Thrombosis/Pulmonary Embolism Present on Admission: No
--- NOTE | 2022-06-10 18:37 | PC.NURSE ---
per Dr. Albarran, exchanged sequeira catheter.
[2022-06-10] MEDS: ROPINIROLE 1 MG TABLET PO (20:12)
[2022-06-11] VITALS (62 sets, daily range): BP systolic 120–137; BP diastolic 57–73; PULSE 67–87; RESP 16–54; TEMP 36.3–36.6; O2SAT 95–98
[2022-06-11] MEDS: ACETAMINOPHEN 325 MG TABLET 650 MG PO (01:26)
[2022-06-11 06:00] LABS: Add Manual Diff / Slide Review NO; Basophils Absolute Auto 0 /uL (0-100); Basophils Percent Auto 0.4 % (0-2); Eosinophils Absolute Auto 0 /uL (0-450); Eosinophils Percent Auto 1.8 % (2-4); Hematocrit 22.4 % (41-53); Hemoglobin 7.4 g/dL (13.5-17.5); Lymphocytes Absolute Auto 600 /uL (1100-4500); Mean Corpuscular HGB Conc 32.9 % (30-36); Mean Corpuscular Hemoglobin 28.9 PG (26-34); Mean Corpuscular Volume 87.9 fL (80-100); Monocytes Absolute Auto 300 /uL (0-900); Monocytes Percent Auto 12.2 % (3-14); Neutrophils Absolute Auto 1600 /uL (1500-7000); Neutrophils Percent Auto 63.6 % (50-75); Platelet Count 116 X10^3/uL (150-400); Red Blood Cell Count 2.55 X10^6/uL (4.5-5.9); White Blood Cell Count 2.5 X10^3/uL (4.5-11.0)
[2022-06-11 06:09] LABS: Alanine Aminotransferase 27 IU/L (<50); Albumin 3.4 g/dL (3.5-5.0); Albumin Globulin Ratio 1.1 (1.0-2.8); Alkaline Phosphatase 68 U/L (38-126); Aspartate Aminotransferase 24 IU/L (17-59); BUN Creatinine Ratio 25.9 (6-22); Bilirubin Total 0.1 mg/dL (0.2-1.3); Blood Urea Nitrogen 37 mg/dL (9-20); Calcium 7.7 mg/dL (8.4-10.2); Carbon Dioxide 22 mmol/L (22-32); Chloride 109 mmol/L (98-107); Estimated Glomerular Filt Rate 50 mL/min (>60); Glucose 101 mg/dL (80-110); HEMOLYSIS < 15 (0-50); Magnesium 1.3 mg/dL (1.6-2.3); Potassium 3.4 mmol/L (3.4-5.1); Sodium 141 mmol/L (137-145); Total Protein 6.4 g/dL (6.3-8.2)
[2022-06-11] MEDS: MAGNESIUM SULFATE 4 GM/100 ML PIGGYBACK IV (07:00)
[2022-06-11] MEDS: POTASSIUM CHLORIDE 20 MEQ TAB PO (07:00)
[2022-06-11] MEDS: CLOPIDOGREL 75 MG TABLET PO (08:54)
[2022-06-11] MEDS: AMIODARONE 200 MG TABLET PO (08:55)
[2022-06-11] MEDS: METOPROLOL ER 25 MG TABLET PO (08:55)
[2022-06-11] MEDS: ASPIRIN EC 81 MG TABLET PO (08:55)
--- NOTE | 2022-06-11 09:57 | PM.DS.1 ---
History of Present Illness History of Present Illness Date Patient Seen: 06/11/22 Chief complaint: sepsis, poorly responsive, desaturation Narrative: Shantanu Underwood is a 69-year-old male history of Gmpkvit-Mnrgv-Pktah dz with related chronic muscular deconditioning/weakness, chronic left diaphragmatic paralysis, PVD, HLD, sleep apnea, RLS, colon cancer, DM type 2, hypertension, obstructive bilateral nephrolithiasis with stents, recent NSTEMI, with heart stents x2 (plavix/ASA), gouty arthritis and trophi gout who was brought to the ER by EMS with lethargy and hypotension. He was recently admitted for possible septic shock and heart failure and was discharged to SNF on 05/27/22. Per patient he was discharged from SNF about 3 days ago, was getting home health evaluation and PT but was hypotensive and not as alert so family called EMS. He denies recent complaints including chest pain, shortness of breath, nausea, vomiting. He developed a cough today that has been non-productive, he denies lower extremity edema or orthopna. He has had a sequeira for some time now, thinks it might have been changed last a month ago, his urine has been slightly cloudy but he is not able to state how long. In the emergency room, he was noted to be intermittently hypoxic on room air, improved to 2L. He was mildly hypotensive but responded to fluid boluses.? Laboratory evaluation revealed no leukocytosis, a stable chronic anemia with a hemoglobin of 8.4, improved creatinine prior discharge at 1.77, and no other significant lab abnormalities.? Urinalysis showed 5-10 RBCs and 10-30 wbc's and was reflex for culture.? COVID-19 testing was positive (new diagnosis), and his also reportedly tested positive as well. Discharge Providers Provider Date of admission: 06/10/22 15:08 Discharge Date: 06/11/22 Primary care physician: Dmitry Ferguson MD Consults: 06/10/22 18:23 Consult to Occupational Therapy Evaluate & Treat Comment: Physician Instructions: Evaluate and treat Consult to Physical Therapy Evaluate & Treat Comment: Physician Instructions: Evaluate and Treat 06/11/22 13:19 Consult to Home Health Routine Comment: Reason For Exam: Evaluate and Treat- RN, OT, PT Discharge provider: Alfonso Pisano DO Summary Hospital Course Discharge Diagnosis: 1. Acute hypotension 2. COVID 19 infection with possible superimposed bacterial pneumonia with brief acute respiratory failure with hypoxia. 3. Chronic anemia 4. Chronic diastolic heart failure 5. RLS 6. PVD Hospital Course: Admitted for acute hypotension and dizziness at home and found to have BP of 84/56. Received fluid boluses and BP improved to 120's systolic and patient felt much better. Found to be COVID positive and have possible LLL infiltrate on CXR, however procal was negative at 0.12 and he was on room air. Urine culture grew alec albicans but in setting of chronic sequeira. Blood cultures were negative. Suspicion for sepsis as cause of hypotension was low, but more likely dehydration along with his BP meds. Patient felt alot better and wanted to discharge home. He requested removal of the sequeira, attempt was made to contact urology but could not so the sequeira was removed at patient's request. His home lasix and losartan was discontinued and metop XL dose was halved on discharge to prevent recurrent hypotension. Time Spent with Patient Time spent: Greater than 30 minutes Exam Vital Signs (past 8 hours): Oxygen Delivery Method Room Air Oxygen Flow Rate 0 Narrative Exam Narrative: General:? Patient is well developed and well nourished, in no distress at this time. HEENT:? Normocephalic, atraumatic, extraocular muscles intact, oral pharynx is clear and mucous membranes are moist. Neck: supple and symmetric, trachea is midline, no cervical adenopathy. Negative for JVD Chest:? Normal AP diameter and contour without kyphoscoliosis, no tachypnea, equal chest rise bilaterally. Lungs:? CTA b/l no wheezing rhonchi or rales. Cardio:?RRR no m/r/g. Abdomen: S NT ND Musculoskeletal:? Muscle strength and tone are equal within normal limits, no deformity. Extremities: No edema or joint effusions. No cyanosis or clubbing. Skin:? Pale,? Warm to touch,dry and intact without rashes, ulcerations or petechiae.? Neuro:? Alert and orientated x3, though slightly confused and falls asleep easily.? no gross deficits noted of cranial nerves. Bilateral LE weakness, chronic. Psych:?Calm and cooperative with stable behavior. Objective Labs Result Diagrams: 06/11/22 05:43 06/11/22 05:43 REPLACED BY [facility] Medical History Anticoagulated on heparin Arthritis Bilateral nephrolithiasis Ypblfgf-Hkyop-Kgdvb disease Colon cancer Diabetes mellitus treated with oral medication Hernia History of non-ST elevation myocardial infarction (NSTEMI) History of renal calculi Hypertension, essential Mixed hyperlipidemia Peripheral vascular disease of extremity Sleep apnea in adult Surgical History History of heart artery stent Hx of cystoscopy (10/16/21) Hx of cystoscopy (12/03/21) Hx of cystoscopy (03/25/22) S/P ureteral stent placement Status post colectomy (~1995) Status post vascular bypass Family History Father Ulcer History of blood clots Mother No known problems Social History marital status: household members: spouse lives independently: Yes occupational status: other Smoking Status: Former smoker alcohol intake: current substance use type: does not use Type(s) of exercise: bicycling frequency: 1-2 times per week Discharge Plan Discharge Plan Patient Disposition: Home Health Service Provider Discharge Comment: You were admitted for low blood pressure with concern for infection. All of your cultures came back negative so I believe you were likely dehydrated and your blood pressure medications lowered your blood pressure too much. So I've stopped your losartan and lasix and halved the dose of your metoprolol. We also took your sequeira out. Please follow-up with your PCP TESHA to go over your blood pressure and what BP meds to resume or not, as well as Dr. Cowan to manage your urinary symptoms. Discharge orders & Medications Prescriptions: Continued clopidogrel [Plavix] 75 mg tablet 75 mg PO DAILY Qty: 90 3RF ProAir HFA 90 mcg/actuation HFA aerosol inhaler 1 puff INHALATION Q6H PRN (Reason: shortness of breath or wheezing) Qty: 8.5 11RF amiodarone 200 mg tablet 200 mg PO DAILY Label Comments: TAKE ONE TABLET BY MOUTH ONE TIME DAILY ropinirole 1 mg Tablet 1 mg PO BEDTIME Qty: 10 0RF polyethylene glycol 3350 17 gram Powder In Packet 17 gm PO DAILY PRN (Reason: Constipation) Qty: 10 0RF aspirin 81 mg Tablet,Delayed Release (Dr/Ec) 81 mg PO DAILY Qty: 10 0RF acetaminophen 325 mg tablet 500 mg PO Q6H PRN (Reason: Fever/Mild Pain (1-3)) Changed metoprolol succinate 25 mg tablet extended release 24 hr 12.5 mg PO DAILY Qty: 30 0RF Label Comments: TAKE ONE TABLET BY MOUTH ONE TIME DAILY Discontinued furosemide 40 mg tablet 20 mg PO DAILY losartan 25 mg tablet 25 mg PO DAILY Label Comments: TAKE ONE TABLET BY MOUTH ONE TIME DAILY Follow up/Referrals: Dmitry Ferguson MD [Primary Care Provider] - 06/18/22 10:00 am (Fllow up appointment on 06/[address] Ferguson. Please arrive 15 minutes prior to your scheduled appointment.) Discharge Data Primary Care Provider: Dmitry Ferguson Quality VTE Deep Vein Thrombosis/Pulmonary Embolism Present on Admission: No
[2022-06-11] MEDS: cefTRIAXone 1,000 MG in SODIUM CHLORIDE 0.9% 100 ML 200 MG IV (10:08)
--- NOTE | 2022-06-11 12:39 | CM.DANOTE ---
DCP Assessment: Payor; Medicare and AARP PCP: Dmitry Ferguson MD Pt is a 77 y.o. M who presented to ER with decreased LOC and hypotension. It was found that patient is COVID+ with hypotension and pneumonia. Pt admitted to AC unit for further management and evaluation of symptoms. DCP unable to enter pt room due to isolation precautions. Attempted to contact pt by phone but pt unavailable and did not answer. DCP contacted Jayla, pt and POA. Jayla states pt is currently under [place] home [facility] services and she would like to take pt home. DCP verbalized that the RN taking care of pt verbalized to her that she is awaiting on blood cultures and if negative, pt can discharge home today. Jayla thankful for the call. Jayla to picker tender helper pt when discharged. Jayla awaiting call from RN once plan is finalized. P: Awaiting blood cultures and if negative, pt to discharge home via spouse POV. If unable to discharge today, await further plan. Kira Colón RN/STACEY Discharge Planning/Care Management CM Discharge Assessment Start: 06/11/22 08:32 Freq: Status: Active Protocol: Document 06/11/22 12:36 ARI (Rec: 06/11/22 12:37 [id number]) Discharge Planning Assessment Assigned Turn Out Worker Kira Colón RN/STACEY Advance Directives? Yes Advance Directives on File Yes History Provided By Patient,Medical Record Prior Living Arrangements House Household Members spouse Independent with ADL's Yes Is patient alert and oriented? Yes Caregiver for Another No Community Services used prior to Home Health Nurse admission: Discharge Plan Home Transportation Arrangement Spouse Referrals Initiated Home Health Whiteboard Updated in Patient Room with Yes name and ext. # of Turn Out Worker Comment Instructed to call Review Status In Process Please Provide Date Initial DC 06/11/22 Assessment Was Performed Next Review Type Continued Stay Review
--- NOTE | 2022-06-11 15:02 | PT.IIE ---
Surgical History (Last Reviewed 06/10/22 @ 18:14 by Tang Albarran DO) History of heart artery stent Hx of cystoscopy (10/16/21) Hx of cystoscopy (12/03/21) Hx of cystoscopy (03/25/22) S/P ureteral stent placement Status post colectomy (~1995) Status post vascular bypass Medical History (Last Reviewed 06/10/22 @ 18:14 by Tang Albarran DO) Anticoagulated on heparin Arthritis Bilateral nephrolithiasis Twenxbo-Otxhc-Fnjgf disease Colon cancer Diabetes mellitus treated with oral medication Hernia History of non-ST elevation myocardial infarction (NSTEMI) History of renal calculi Hypertension, essential Mixed hyperlipidemia Peripheral vascular disease of extremity Sleep apnea in adult Physical Therapy Inpatient Evaluation/Re-Eval M1 PT/OT-IP Prior Functional Status Start: 06/11/22 16:49 Freq: NEEDED Status: Active Protocol: Document 06/11/22 15:25 [facility] (Rec: 06/11/22 17:10 [facility] [id number]) Medical Review Prior Functional Status Communication independent Mobility and Gait Use of FWW and wc in the house . Activities of Daily Living and IADL's Pt states able to do most of his ADL's and his is present for his showers and assist him as needed. Social History Household Members spouse Living Arrangements House Number of Floors (Floors) One Floor Number of Stairs To Enter/Railing? NO steps to enter. Home Environment High Toilet,Walk in Shower Home Equipment Raised Toilet Seat w/Armrests, Shower Seat with Backrest,Hand Held Shower,Grab Bars In Shower M2 PT-IP Current Condition Start: 06/11/22 17:00 Freq: NEEDED Status: Active Protocol: Document 06/11/22 15:02 DLM (Rec: 06/11/22 17:15 DL [id number]) Physical Therapy Current Condition Current Condition Evaluation Date 06/11/22 Treatment Diagnosis Hypotension, weakness, impaired mobility/gait Onset Date 06/10/22 M3 PT-IP Subjective Start: 06/11/22 17:00 Freq: NEEDED Status: Active Protocol: Document 06/11/22 15:02 DLM (Rec: 06/11/22 17:15 DL [id number]) Subjective Physical Therapy Visit Type Type Initial Evaluation Visit Start Time 14:30 Visit Stop Time 15:02 Total Visit Minutes 32 Number of ACCOUNTING GENERALIST Visits 0 Physical Therapy Visit Comments Patient Comments He is waiting to hear about his blood culture results Patient Goals he wants to go home today with his to help Therapy Pain Assessment Pain When Pain Assessed After Treatment Pain Present Pain Present Denied Pain M4 PT-IP Mobility and Gait Start: 06/11/22 17:00 Freq: NEEDED Status: Active Protocol: Document 06/11/22 15:02 DL (Rec: 06/11/22 17:15 [facility] [id number]) PT-Bed Mobility Assessment Supine to Sit Supine to Sit Minimal Assistance,Moderate Assistance Scooting Scooting to Edge of Bed Standby Assistance PT-Transfer Assessment Sit to and From Stand Sit to and from Stand Contact Guard Assistance, Minimal Assistance,Use of Upper Extremities Equipment Transfer Assistive Device Gait Belt,Front Wheeled Walker Transfers Transfer Destination Bed,Chair Transfer Technique Stand Step Pivot Transfer Ability Level of Assist Standby Assistance,Contact Guard Assistance,Use of Upper Extremities Comments Mobility Comments He has more difficulty standing up from low surfaces, he has a lift recliner at home and a tall bed. He stayed up in the recliner at the end of this visit. Gait Assessment Gait Gait Assistance Required: Contact Guard Assist Distance (Feet) 20 Assistive Devices Assistive Device Gait Belt,Front Wheeled Walker Gait Deviations General Gait Pattern Decreased Feet Clearance,Step- to Gait Factors Limiting Gait Function Factors Limiting Gait Function Decreased Activity Tolerance, Decreased Sensation,Decreased Strength,Poor Balance Comments Gait Comments he has a steppage gait pattern to manage his bilateral ankle weakness, pt often looks at his feet to manage his impaired sensation Stair Climbing Assessment Comments Stair Climbing Comments no stairs at home PT-Balance Assessment Sitting Balance and Reactions Static Sitting Balance Ability Good Dynamic Sitting Balance Ability Good Standing Balance and Reactions Static Standing Balance Ability Good Dynamic Standing Balance Ability Fair Device Used FWW M5 PT-IP Objective Assessments Start: 06/11/22 17:00 Freq: NEEDED Status: Active Protocol: Document 06/11/22 15:02 DLM (Rec: 06/11/22 17:15 [facility] [id number]) Orientation Orientation/Cognition Level of Alertness Alert Orientation Name,Age,Birthday,Month,Date, Year,Day of Week,Place, Situation Language Function Ability No Deficits Noted Safety Awareness Understands Safety Issues Memory Description No Deficits Noted Comments good awareness of his medical conditions Gross Range of Motion Upper Extremity ROM Assessment Within Functional Limits Lower Extremity ROM Assessment Within Functional Limits Impairments DF to neutral only Strength Upper Extremity Strength Assessment Bilaterally Impaired Shoulder See Occupational therapy evaluation for details Lower Extremity Strength Assessment Bilaterally Impaired Hip hip flex 4/5 Knee knee ext 4-/5 Ankle DF 0/5 Comments Strength Comments chronic muscle weakness from CMT Coordination Assessment Gross Coordination Gross Coordination Impaired Assessment Coordination Comments associated with his extremity weakness Sensation Assessment Sensation Gross Sensation Right UE Impaired,Left UE Impaired,Right LE Impaired, Left LE Impaired Sensation Description Numbness,Tingling Comments Sensation Comments chronic sensory changes in hands and distal LE's Muscle Tone Muscle Tone WNL Yes M6 PT-IP Treatment Start: 06/11/22 17:00 Freq: NEEDED Status: Active Protocol: Document 06/11/22 15:02 DL (Rec: 06/11/22 17:15 DL [id number]) Physical Therapy Treatment Education Education Provided Safety Other Treatments Other Treatment Performed Occupational therapy spoke with his and confirmed she can assist him at home M7 PT-IP Assessment and Plan Start: 06/11/22 17:00 Freq: NEEDED Status: Active Protocol: Document 06/11/22 15:02 DLM (Rec: 06/11/22 17:15 DL [id number]) PT Summary Assessment and Plan Potential Rehabilitation Potential Good Status of Condition at Evaluation Evolving Summary Impairments Strength,Balance,Sensation,Bed Mobility,Transfers,Gait, Activity Tolerance Progress Towards Goals Safe For Discharge Assessment Summary Shantanu shows good participation in therapy today . He is eager to discharge home with his . He reports having needed equipment at home. He needs one person assist for his mobility. He tolerated short distances of gait in his room. Per pt he is needing the same level of assist as he had at home before this hospitalization. He appears safe to discharge home with his today if medically cleared. Recommend he resume home health physical therapy. Goals Other Goals discharge home planned for later today Frequency of Treatment Frequency Of Treatment Discharge Treatment Plan Other Recommendations and Next Treatment discharge home today is Focus planned Precautions Other Precautions fall risk COVID-19 (+) Recommendations To Nursing Amount of Assist Needed 1 Person Assist Discharge Recommendations PT Discharge Recommendations Home with Assistance,Home Health Other Discharge Recommendations return home with his to assist Transportation Needs at Discharge Private Vehicle
--- NOTE | 2022-06-11 15:25 | OT.IP.EVAL ---
Past Medical History (Last Reviewed 06/10/22 @ 18:14 by Tang Albarran DO) Anticoagulated on heparin Arthritis Bilateral nephrolithiasis Woedwfa-Mhnjk-Rkurl disease Colon cancer Diabetes mellitus treated with oral medication Hernia History of non-ST elevation myocardial infarction (NSTEMI) History of renal calculi Hypertension, essential Mixed hyperlipidemia Peripheral vascular disease of extremity Sleep apnea in adult Surgical History (Last Reviewed 06/10/22 @ 18:14 by Tang Albarran DO) History of heart artery stent Hx of cystoscopy (10/16/21) Hx of cystoscopy (12/03/21) Hx of cystoscopy (03/25/22) S/P ureteral stent placement Status post colectomy (~1995) Status post vascular bypass Occupational Therapy Inpatient Evaluation/Re-Eval M1 PT/OT-IP Prior Functional Status Start: 06/11/22 16:49 Freq: NEEDED Status: Active Protocol: Document 06/11/22 15:25 [facility] (Rec: 06/11/22 17:10 [facility] [id number]) Medical Review Prior Functional Status Communication independent Mobility and Gait Use of FWW and wc in the house . Activities of Daily Living and IADL's Pt states able to do most of his ADL's and his is present for his showers and assists him as needed. Social History Household Members spouse Living Arrangements House Number of Floors (Floors) One Floor Number of Stairs To Enter/Railing? NO steps to enter. Home Environment High Toilet,Walk in Shower Home Equipment Raised Toilet Seat w/Armrests, Shower Seat with Backrest,Hand Held Shower,Grab Bars In Shower M2 OT-IP Current Condition Start: 06/11/22 16:49 Freq: Status: Active Protocol: Document 06/11/22 15:25 [facility] (Rec: 06/11/22 17:10 [facility] [id number]) Occupational Therapy Current Condition Current Condition Evaluation Date 06/11/22 Treatment Diagnosis Covid+, weakness Diagnosis Onset Date 06/10/22 M3 OT- IP Subjective and Pain Start: 06/11/22 16:49 Freq: Status: Active Protocol: Document 06/11/22 15:25 [facility] (Rec: 06/11/22 17:10 [facility] [id number]) OT- Subjective Occupational Therapy Visit Type Type Initial Evaluation Visit Start Time 14:30 Visit Stop Time 15:25 Total Visit Minutes 55 Occupational Therapy Visit Comments Patient Comments Pt agreed to get up. Patient/Caregiver Goals To go home. OT Pain Assessment Pain When Pain Assessed At Rest Pain Present Pain Present Denied Pain M4 OT- IP ADL's Start: 06/11/22 16:49 Freq: Status: Active Protocol: Document 06/11/22 15:25 [facility] (Rec: 06/11/22 17:10 [facility] [id number]) OT MLJ-Ydho-Axzgawt Comments OT Self-Feeding Comments NOt at meal time. OT ADL-Grooming Comments OT Grooming Comments Not perfromed. OT ADL-Oral Care Comments Oral Care Comments Not performed. OT ADL-Dressing General Eval Upper Body Dressing Ability Standby Assistance Lower Body Dressing Ability Moderate Assistance Comments OT Dressing Comments Assist to help pull up his shorts while standing with FWW . OT ADL-Toileting Comments OT Toileting Comments Encouraged pt to use the urinal at night. In addition since the bathroom is 100 steps from his chair that initially may be good to just have his use the wc to get him to the bathroom or possibly get a BSC. OT ADL-Bathing Comments OT Bathing Comments Not performed. M5 OT- IP IADL's Start: 06/11/22 16:49 Freq: Status: Active Protocol: Document 06/11/22 15:25 [facility] (Rec: 06/11/22 17:10 [facility] [id number]) OT-Instrumental Activities of Daily Living Medication Management Medication Management Caregiver Administers Money Management Money Management Caregiver Provides Assistance Meal Preparation Meal Preparation Caregiver Provides Assist Mold Sheet Cleaner Mold Sheet Cleaner Caregiver Provides Assist M6 OT- IP Functional Cognition Start: 06/11/22 16:49 Freq: Status: Active Protocol: Document 06/11/22 15:25 [facility] (Rec: 06/11/22 17:10 [facility] [id number]) Cognitive Factors Limiting Selfcare Function Cognitive Ability Level of Alertness Alert Patient Orientation Name,Place,Situation Attention Span Ability Capable of Focused Attention, Capable of Sustained Attention Ability to Follow Commands Able to Follow Multi-Step Commands Memory Description No Deficits Noted Cognitive Comments Cognitive Assessment Comments Pt appears to be at baseline for his cognitive needs. M7 OT- IP Mobility and Balance Start: 06/11/22 16:49 Freq: Status: Active Protocol: Document 06/11/22 15:25 [facility] (Rec: 06/11/22 17:10 [facility] [id number]) OT- Bed Mobility Assessment Supine to Sit Supine to Sit Assist Moderate Assistance OT-Transfer Assessment Sit to and From Stand Sit to and from Stand Minimal Assistance,Maximum Assistance,2 Person Assistance Transfers Transfer Ability Standby Assistance,Contact Guard Assistance Technique Transfer Destination Bed,Chair,Toilet,Wheelchair Transfer Technique Stand Step Pivot Devices Transfer Assistive Devices Gait Belt,Front Wheeled Walker Comments Mobility Comments Pt from higher surfaces MACK to stand and lower surface MAXA X 2 to stand. Pt has a lift chair at home and a high bed. Once on his feet, pt is able to walk with CGA to close SBA with the FWW. OT- Balance Assessment Sitting Balance and Reactions Static Sitting Balance Ability Good Dynamic Sitting Balance Ability Fair Standing Balance and Reactions Static Standing Balance Ability Poor Dynamic Standing Balance Ability Poor M8 OT- IP Objective Assessments Start: 06/11/22 16:49 Freq: Status: Active Protocol: Document 06/11/22 15:25 [facility] (Rec: 06/11/22 17:10 [facility] [id number]) OT Gross Range of Motion Upper Extremity Range of Motion ROM Impairments grossly WFL OT Strength Comments Strength Comments BUE from 3-/5 to 3+/5 to 3-/5 form shoulders, elbow to hands . Pt has Charot Yolande Tooth which affects his feet more than his hands. M9 OT- IP Assessment and Plan Start: 06/11/22 16:49 Freq: Status: Active Protocol: Document 06/11/22 15:25 [facility] (Rec: 06/11/22 17:10 [facility] [id number]) OT Summary Assessment and Plan Potential Rehabilitation Potential Good Analytic Complexity at Evaluation Moderate Summary OT Impairments Strength,Balance,Functional Mobility,Dressing,Toileting, Bathing,Toilet Transfers, Shower Transfers,Activity Tolerance Progress Towards Goals Progressing Toward Goals Assessment Summary Pt MODA complexity due to weakness and COVID+. Pt main barriers are decreased activity tolerance and weakness. Pt has a very supportive to be able to assist pt at home. Pt will benefit from home health services. Goals Self-Feeding Goal Independent Grooming Goal Independent Dressing Goal Minimal Assistance Toileting Goal Standby Assistance Bathing Goal Minimal Assistance Toilet Transfer Goal Independent,Standby Assistance Shower Transfer Goal Independent Days to Meet Goals 10 Frequency of Treatment Frequency Of Treatment Once a Day Treatment Plan OT Treatment Plan ADL Training,Functional Mobility,Patient/Family Education,Discharge Planning Discharge Recommendations OT Discharge Recommendations Home with Assistance,Home Health Home Equipment Needs BSC Transportation Needs at Discharge Private Vehicle
== END 2022-06-11 15:00 | disposition home health service (06) | DRG 698 ==
LOC: ED 15:03 → ICU 06-11 07:40 → AC 06-12 08:17 → ICU 06-12 08:17
PROVIDERS: Admitting Provider Internal Medicine; Emergency Provider Emergency Medicine; PCP Student in an Organized Health Care Education/Training Program; Referring Provider Emergency Medicine; Visit Provider Internal Medicine
DX: T83.511A Infection and inflammatory reaction due to indwelling urethral catheter, initial encounter (principal); A41.9 Sepsis, unspecified organism; G93.41 Metabolic encephalopathy; J12.82 Pneumonia due to coronavirus disease 2019; U07.1 COVID-19; J96.01 Acute respiratory failure with hypoxia; R65.20 Severe sepsis without septic shock; I48.20 Chronic atrial fibrillation, unspecified; I50.32 Chronic diastolic (congestive) heart failure; N30.00 Acute cystitis without hematuria; G25.81 Restless legs syndrome; I11.0 Hypertensive heart disease with heart failure; I73.9 Peripheral vascular disease, unspecified; Z66 Do not resuscitate; Z87.891 Personal history of nicotine dependence
CPT/HCPCS: 0241U; 36415; 71045; 76770; 80053; 81001; 81003; 82550; 82553; 83605; 83735; 83880; 84145; 84484; 85025; 85610; 85730; 87040; 87077; 87086; 87797; 93005; 93010; 96365; 96367; 96368; 97162; 97166; 97535; 99285; 99291; J0692; J0696; J3475

== ENCOUNTER 2022-06-21 14:30 | Inpatient (IN) | payer MEDICARE, SELFPAY ==
[2022-04-18 03:55] VITALS: RESP 16
[2022-05-25 14:41] VITALS: PULSE 84; RESP 20; O2SAT 99
[2022-06-10 16:51] VITALS: BMI 27.4
[2022-06-21] VITALS (57 sets, daily range): BP systolic 74–141; BP diastolic 41–112; PULSE 76–200; RESP 22–42; TEMP 36.6–39.5; O2SAT 90–99; BMI 26.2; BMI 25.9
--- NOTE | 2022-06-21 14:56 | DI.RAD.S_ITS ---
PROCEDURE: XR CHEST 1V INDICATIONS: suspected sepsis TECHNIQUE: One view of the chest was acquired. COMPARISON: [facility], CR, XR CHEST 1V, 06/10/2022, 14:06. FINDINGS: Surgical changes and devices: None. Lungs and pleura: Low lung volumes and asymmetric left hemidiaphragm elevation, chronic. The previously seen left lung base pneumonia is obscured by the diaphragm shadow. The visible lung booth are clear. Mediastinum: The heart size is obscured, probably enlarged. Mediastinal contour is normal. No central vascular congestion. Bones and chest wall: No suspicious bony lesions. Overlying soft tissues appear unremarkable. IMPRESSION: 1. The left lung base is not seen, obscured by the diaphragm elevation and may obscure a persistent pneumonia. 2. The visible lung booth are clear. No Dictated by: Chaya Pugh M.D. on 06/21/2022 at 16:00 Approved by: Chaya Pugh M.D. on 06/21/2022 at 16:02
--- NOTE | 2022-06-21 15:04 | ED_ITS ---
HPI - General Adult General Chief complaint: Shortness of Breath/Dyspnea Stated complaint: weak, support staff sent here, rapid heart rate Time Seen by Provider: 06/21/22 14:46 Source: patient and family Mode of arrival: Family Vehicle History of Present Illness HPI narrative: Patient is a 77-year-old male. Brought in for evaluation of shortness of breath and tachycardia. Patient has multiple chronic medical issues. Has had issues with urosepsis in the past secondary to infected stones and then infected stents. Approximately 10 days ago was diagnosed with COVID. He is no current COVID symptoms. He is working with occupational therapy earlier today when he started to have shortness of breath. His states that his heart rate was e levated. Patient states he is feeling weak. No chest pain. No shortness of breath. No skin changes anywhere that would be concerning for an infection. No urinary symptoms. No change in bowel habits. Has not tried anything for symptoms prior to arrival. Related Data Home Medications Medication Instructions Recorded Confirmed amiodarone 200 mg tablet 200 mg PO DAILY 05/22/22 06/18/22 acetaminophen 325 mg tablet 500 mg PO Q6H PRN Fever/Mild Pain 06/10/22 06/18/22 (1-3) Previous Rx's Medication Instructions Recorded clopidogrel 75 mg tablet (Plavix) 75 mg PO DAILY #90 tabs 05/31/21 albuterol sulfate 90 mcg/actuation 1 puff inhalation Q6H PRN 08/30/21 aerosol inhaler (ProAir HFA) shortness of breath or wheezing #8.5 grams aspirin 81 mg tablet,delayed 81 mg PO DAILY #10 tabs 05/27/22 release polyethylene glycol 3350 17 gram 17 gm PO DAILY PRN Constipation 05/27/22 oral powder packet #10 ea ropinirole 1 mg tablet 1 mg PO BEDTIME #10 tabs 05/27/22 metoprolol succinate 25 mg 12.5 mg PO DAILY #30 tabs 06/11/22 tablet,extended release 24 hr atorvastatin 20 mg tablet 20 mg PO BEDTIME #90 tabs 06/18/22 empagliflozin 10 mg tablet 10 mg PO DAILY #30 tabs 06/18/22 trazodone 50 mg tablet 50 mg PO BEDTIME PRN insomnia #30 06/18/22 tabs Allergies Allergy/AdvReac Type Severity Reaction Status Date / Time No Known Drug Allergies Allergy Verified 06/18/22 10:05 Review of Systems Constitutional Constitutional: Reports system reviewed and no additional complaints, except as documented Cardiovascular Cardiovascular: Reports system reviewed and no additional complaints, except as documented Respiratory Respiratory: Reports system reviewed and no additional complaints, except as documented Gastrointestinal Gastrointestinal: Reports system reviewed and no additional complaints, except as documented Musculoskeletal Musculoskeletal: Reports system reviewed and no additional complaints, except as documented Integumentary/Breasts Skin/Breast: Reports system reviewed and no additional complaints, except as documented Neurologic Neurologic: Reports system reviewed and no additional complaints, except as documented Hematologic/Lymphatic On Anticoagulants: No Patient History Medical History Anticoagulated on heparin Arthritis Basal cell carcinoma Bilateral nephrolithiasis Brain concussion Loxwzea-Uzbxo-Dqnpz disease Hernia History of malignant neoplasm of colon (05/29/15) History of non-ST elevation myocardial infarction (NSTEMI) History of renal calculi Hypertension, essential Mixed hyperlipidemia Peripheral vascular disease of extremity Sleep apnea in adult Surgical History History of heart artery stent Hx of cystoscopy (10/16/21) Hx of cystoscopy (12/03/21) Hx of cystoscopy (03/25/22) S/P ureteral stent placement Status post colectomy (~1995) Status post vascular bypass Family History Father Ulcer History of blood clots Mother No known problems Social History marital status: household members: spouse lives independently: Yes occupational status: other Smoking Status: Former smoker alcohol intake: current substance use type: does not use Type(s) of exercise: bicycling frequency: 1-2 times per week Smoking Status: Former smoker alcohol intake frequency: a few times a month Substance Use Type: does not use Exam Initial Vital Signs Initial Vital Signs: Vital Signs Blood Pressure 141/112 H 06/21/22 14:45 Const General: cooperative, comfortable and No ill appearing HENMT Head: normal to inspection and normocephalic Chest Chest: normal inspection of the chest Resp Effort & Inspection: normal respiratory effort Auscultation: clear to auscultation bilaterally Cardio Rate: tachycardic Rhythm: regular rhythm GI Inspection: normal to inspection Palpation: soft and No tender Skin General: no rashes or lesions noted Neuro General: patient alert, patient awake, patient oriented x3 and moves all extremities Speech: speech normal Extrem General: normal to inspection and capillary refill normal Psych Appearance: grossly normal and well kempt Course Orders Ordered: ED Orders 06/21/22 14:53 EKG-12 Lead Stat 06/21/22 14:55 Complete Blood Count AUTO DIFF Stat Comprehensive Metabolic Panel Stat Covid-19 + FLU A/B + RSV - PCR Stat Lactate (Lactic Acid) Stat Lipase Stat Partial Thromboplastin Time Stat Procalcitonin Stat Prothrombin Time INR Stat 06/21/22 14:56 XR chest 1V Stat RT Consult Eval and Treat NOW 06/21/22 15:30 Blood Culture Stat 06/21/22 16:10 Urine Culture Stat Urine Microscopic Stat Sodium Chloride (Normal Saline 0.9%) 1,000 mls @ 150 mls/hr IV BOLUS ONE Stop: 06/22/22 00:07 Last Admin: 06/21/22 17:51 Dose: 150 mls/hr Documented By: SIMON Discontinued Medications Acetaminophen (Acetaminophen 325 Mg Tablet) 650 mg PO NOW ONE Stop: 06/21/22 15:06 Last Admin: 06/21/22 15:19 Dose: 650 mg Documented By: SIMON Sodium Chloride (Normal Saline 0.9%) 1,000 mls @ 1,000 mls/hr IV BOLUS ONE Stop: 06/21/22 15:55 Last Infusion: 06/21/22 17:22 Dose: 0 mls/hr Documented By: Admin: 06/21/22 15:20 Dose: 1,000 mls/hr Documented By: SIMON Ceftriaxone Sodium 1,000 mg/ (Sodium Chloride) 100 mls @ 200 mls/hr IV NOW ONE Stop: 06/21/22 15:44 Last Infusion: 06/21/22 16:59 Dose: 0 mls/hr Documented By: Admin: 06/21/22 15:58 Dose: 200 mls/hr Documented By: SIMON Ondansetron HCl (Ondansetron 4 Mg/2 Ml Inj) 4 mg IV NOW ONE Stop: 06/21/22 14:57 Last Admin: 06/21/22 15:21 Dose: Not Given Documented By: SB Ondansetron HCl (Ondansetron 4 Mg Odt) 4 mg SL NOW ONE Stop: 06/21/22 14:57 Last Admin: 06/21/22 15:11 Dose: Not Given Documented By: SB Vital Signs Vital signs: Vital Signs - 8 hr 06/21/22 14:49 06/21/22 15:19 06/21/22 16:04 Temperature 103.1 F H 103.1 F H 101.1 F H Pulse Rate 117 H Respiratory Rate 26 H Blood Pressure 141/112 H Pulse Oximetry Oxygen Delivery Method 06/21/22 14:45 06/21/22 14:46 06/21/22 15:00 Temperature Pulse Rate 118 H 110 H Respiratory Rate 29 H Blood Pressure 141/112 H Pulse Oximetry 97 98 Oxygen Delivery Method 06/21/22 15:15 06/21/22 15:25 06/21/22 15:25 Temperature Pulse Rate 104 H 106 H Respiratory Rate 35 H Blood Pressure 134/102 H Pulse Oximetry 98 98 Oxygen Delivery Method 06/21/22 15:30 06/21/22 15:31 06/21/22 15:31 Temperature Pulse Rate 102 H 102 H Respiratory Rate 40 H 35 H Blood Pressure 110/52 L Pulse Oximetry 99 95 Oxygen Delivery Method 06/21/22 15:45 06/21/22 16:00 06/21/22 16:00 Temperature Pulse Rate 99 H 100 H Respiratory Rate 31 H 26 H Blood Pressure 100/50 L Pulse Oximetry 99 96 Oxygen Delivery Method 06/21/22 16:04 06/21/22 16:04 06/21/22 16:15 Temperature Pulse Rate 99 H 93 H Respiratory Rate 30 H 39 H Blood Pressure 93/51 L Pulse Oximetry 97 97 Oxygen Delivery Method 06/21/22 16:30 06/21/22 16:30 06/21/22 16:33 Temperature Pulse Rate 91 H Respiratory Rate 35 H Blood Pressure 80/41 L 84/52 L Pulse Oximetry 94 Oxygen Delivery Method Room Air 06/21/22 16:33 06/21/22 16:36 06/21/22 16:36 Temperature Pulse Rate 93 H 93 H Respiratory Rate 25 H 36 H Blood Pressure 74/48 L Pulse Oximetry 90 L Oxygen Delivery Method 06/21/22 16:38 06/21/22 16:38 06/21/22 16:40 Temperature Pulse Rate 91 H Respiratory Rate 34 H Blood Pressure 84/53 L 81/51 L Pulse Oximetry 94 Oxygen Delivery Method 06/21/22 16:40 06/21/22 16:45 06/21/22 16:45 Temperature Pulse Rate 89 200 H Respiratory Rate 33 H 38 H Blood Pressure 81/50 L Pulse Oximetry 93 94 Oxygen Delivery Method 06/21/22 16:50 06/21/22 16:50 06/21/22 16:55 Temperature Pulse Rate 85 85 Respiratory Rate 25 H 35 H Blood Pressure 81/47 L Pulse Oximetry 96 96 Oxygen Delivery Method 06/21/22 16:55 06/21/22 17:00 06/21/22 17:00 Temperature Pulse Rate 85 Respiratory Rate 29 H Blood Pressure 83/51 L 84/53 L Pulse Oximetry 95 Oxygen Delivery Method 06/21/22 17:05 06/21/22 17:05 06/21/22 17:10 Temperature Pulse Rate 85 84 Respiratory Rate 25 H 28 H Blood Pressure 83/52 L Pulse Oximetry 95 94 Oxygen Delivery Method 06/21/22 17:10 06/21/22 17:15 06/21/22 17:15 Temperature Pulse Rate 86 Respiratory Rate 34 H Blood Pressure 83/53 L 92/58 L Pulse Oximetry 90 L Oxygen Delivery Method 06/21/22 17:20 06/21/22 17:20 06/21/22 17:25 Temperature Pulse Rate 86 Respiratory Rate 30 H Blood Pressure 93/55 L 88/55 L Pulse Oximetry 97 Oxygen Delivery Method Room Air 06/21/22 17:25 06/21/22 17:30 06/21/22 17:30 Temperature Pulse Rate 85 84 Respiratory Rate 36 H 31 H Blood Pressure 94/56 L Pulse Oximetry 93 95 Oxygen Delivery Method 06/21/22 17:35 06/21/22 17:35 06/21/22 17:40 Temperature Pulse Rate 84 82 Respiratory Rate 33 H 29 H Blood Pressure 91/52 L Pulse Oximetry 97 96 Oxygen Delivery Method 06/21/22 17:40 06/21/22 17:45 06/21/22 17:45 Temperature Pulse Rate 81 Respiratory Rate 31 H Blood Pressure 90/55 L 92/55 L Pulse Oximetry 96 Oxygen Delivery Method 06/21/22 17:50 06/21/22 17:50 06/21/22 17:55 Temperature Pulse Rate 81 82 Respiratory Rate 25 H 30 H Blood Pressure 86/51 L Pulse Oximetry 96 97 Oxygen Delivery Method 06/21/22 17:55 06/21/22 18:00 06/21/22 18:00 Temperature Pulse Rate 80 Respiratory Rate 30 H Blood Pressure 94/56 L 90/52 L Pulse Oximetry 96 Oxygen Delivery Method 06/21/22 18:05 06/21/22 18:05 06/21/22 18:10 Temperature Pulse Rate 78 77 Respiratory Rate 28 H 24 Blood Pressure 91/53 L Pulse Oximetry 96 96 Oxygen Delivery Method Room Air 06/21/22 18:10 Temperature Pulse Rate Respiratory Rate Blood Pressure 91/53 L Pulse Oximetry Oxygen Delivery Method Medical Decision Making Medical Records Medical records reviewed: Yes I reviewed the patient's medical records. Lab Data Lab results reviewed: Yes I reviewed the patient's lab results. Result diagrams: 06/21/22 14:55 06/21/22 14:55 Labs: Lab Results 06/21/22 06/21/22 06/21/22 Range/Units 14:55 14:55 14:55 WBC 12.2 H (4.5-11.0) X10^3/uL RBC 2.84 L (4.5-5.9) X10^6/uL Hgb 8.1 L (13.5-17.5) g/dL Hct 24.2 L (41-53) % MCV 85.1 (80-100) fL MCH 28.4 (26-34) PG MCHC 33.4 (30-36) % RDW 15.8 H (11.6-14.8) % Plt Count 261 (150-400) X10^3/uL Neut % (Auto) 87.6 H (50-75) % Lymph % (Auto) 4.8 L (25-40) % [place] % (Auto) 7.1 (3-14) % Eos % (Auto) 0.1 L (2-4) % Baso % (Auto) 0.4 (0-2) % Neut # (Auto) 24314 H (4733-7943) /uL Lymph # (Auto) 600 L (5569-5478) /uL [place] # (Auto) 900 (0-900) /uL Eos # (Auto) 0 (0-450) /uL Baso # (Auto) 100 (0-100) /uL PT 17.2 H (10.1-12.7) SECONDS INR 1.5 H (0.9-1.3) APTT 29 (26-36) SECONDS Sodium (137-145) mmol/L Potassium (3.4-5.1) mmol/L Chloride (98-107) mmol/L Carbon Dioxide (22-32) mmol/L BUN (9-20) mg/dL Creatinine (0.66-1.25) mg/dL Estimated GFR (>60) mL/min BUN/Creatinine Ratio (6-22) Glucose (80-110) mg/dL Lactate (0.7-2.1) mmol/L Calcium (8.4-10.2) mg/dL Total Bilirubin (0.2-1.3) mg/dL AST (17-59) IU/L ALT (<50) IU/L Alkaline Phosphatase (38-126) U/L Total Protein (6.3-8.2) g/dL Albumin (3.5-5.0) g/dL Globulin (1.7-4.1) g/dL Albumin/Globulin Ratio (1.0-2.8) Lipase (23-300) U/L Procalcitonin (<0.5) ng/mL Urine RBC (0-5/HPF) Urine WBC (0-5/HPF) Ur Squamous Epith Cells (0-5/HPF) Amorphous Sediment Urine Bacteria (None) Urine Mucus (Negative) Ur Culture Indicated? SARS-CoV-2 (PCR) Positive H (Negative) Influenza A (RT-PCR) Flu a negative (NEGATIVE) Influenza B (RT-PCR) Flu b negative (NEGATIVE) RSV (PCR) Negative (Negative) 06/21/22 06/21/22 06/21/22 Range/Units 14:55 14:55 16:10 WBC (4.5-11.0) X10^3/uL RBC (4.5-5.9) X10^6/uL Hgb (13.5-17.5) g/dL Hct (41-53) % MCV (80-100) fL MCH (26-34) PG MCHC (30-36) % RDW (11.6-14.8) % Plt Count (150-400) X10^3/uL Neut % (Auto) (50-75) % Lymph % (Auto) (25-40) % [place] % (Auto) (3-14) % Eos % (Auto) (2-4) % Baso % (Auto) (0-2) % Neut # (Auto) (5758-1908) /uL Lymph # (Auto) (9567-2231) /uL [place] # (Auto) (0-900) /uL Eos # (Auto) (0-450) /uL Baso # (Auto) (0-100) /uL PT (10.1-12.7) SECONDS INR (0.9-1.3) APTT (26-36) SECONDS Sodium 136 L (137-145) mmol/L Potassium 4.6 (3.4-5.1) mmol/L Chloride 103 (98-107) mmol/L Carbon Dioxide 20 L (22-32) mmol/L BUN 21 H (9-20) mg/dL Creatinine 1.29 H (0.66-1.25) mg/dL Estimated GFR 57 L (>60) mL/min BUN/Creatinine Ratio 16.3 (6-22) Glucose 219 H (80-110) mg/dL Lactate 2.4 H (0.7-2.1) mmol/L Calcium 8.5 (8.4-10.2) mg/dL Total Bilirubin 0.3 (0.2-1.3) mg/dL AST 17 (17-59) IU/L ALT 24 (<50) IU/L Alkaline Phosphatase 81 (38-126) U/L Total Protein 7.0 (6.3-8.2) g/dL Albumin 3.6 (3.5-5.0) g/dL Globulin 3.4 (1.7-4.1) g/dL Albumin/Globulin Ratio 1.1 (1.0-2.8) Lipase 70 (23-300) U/L Procalcitonin 1.42 H (<0.5) ng/mL Urine RBC 5-10/hpf H (0-5/HPF) Urine WBC >100/hpf H (0-5/HPF) Ur Squamous Epith Cells 1-5 /hpf (0-5/HPF) Amorphous Sediment 1+ Urine Bacteria Moderate (10-30) H (None) Urine Mucus 1+ H (Negative) Ur Culture Indicated? Specimen cultured SARS-CoV-2 (PCR) (Negative) Influenza A (RT-PCR) (NEGATIVE) Influenza B (RT-PCR) (NEGATIVE) RSV (PCR) (Negative) 06/21/22 Range/Units 17:20 WBC (4.5-11.0) X10^3/uL RBC (4.5-5.9) X10^6/uL Hgb (13.5-17.5) g/dL Hct (41-53) % MCV (80-100) fL MCH (26-34) PG MCHC (30-36) % RDW (11.6-14.8) % Plt Count (150-400) X10^3/uL Neut % (Auto) (50-75) % Lymph % (Auto) (25-40) % [place] % (Auto) (3-14) % Eos % (Auto) (2-4) % Baso % (Auto) (0-2) % Neut # (Auto) (8023-1784) /uL Lymph # (Auto) (5415-5404) /uL [place] # (Auto) (0-900) /uL Eos # (Auto) (0-450) /uL Baso # (Auto) (0-100) /uL PT (10.1-12.7) SECONDS INR (0.9-1.3) APTT (26-36) SECONDS Sodium (137-145) mmol/L Potassium (3.4-5.1) mmol/L Chloride (98-107) mmol/L Carbon Dioxide (22-32) mmol/L BUN (9-20) mg/dL Creatinine (0.66-1.25) mg/dL Estimated GFR (>60) mL/min BUN/Creatinine Ratio (6-22) Glucose (80-110) mg/dL Lactate 0.9 (0.7-2.1) mmol/L Calcium (8.4-10.2) mg/dL Total Bilirubin (0.2-1.3) mg/dL AST (17-59) IU/L ALT (<50) IU/L Alkaline Phosphatase (38-126) U/L Total Protein (6.3-8.2) g/dL Albumin (3.5-5.0) g/dL Globulin (1.7-4.1) g/dL Albumin/Globulin Ratio (1.0-2.8) Lipase (23-300) U/L Procalcitonin (<0.5) ng/mL Urine RBC (0-5/HPF) Urine WBC (0-5/HPF) Ur Squamous Epith Cells (0-5/HPF) Amorphous Sediment Urine Bacteria (None) Urine Mucus (Negative) Ur Culture Indicated? SARS-CoV-2 (PCR) (Negative) Influenza A (RT-PCR) (NEGATIVE) Influenza B (RT-PCR) (NEGATIVE) RSV (PCR) (Negative) Urine Dip Bedside Urine Glucose 1000 mg/dl Bedside Urine Bilirubin - Negative Bedside Urine Ketone - Negative Urine Specific [place] 1.015 Bedside Urine Occult Blood +++ Bedside Urine pH 6.0 Bedside Urine Protein ++ 100 Bedside Urine Urobilinogen - Negative Bedside Urine Nitrite - Negative Bedside Urine Leukocytes + 70 Esterase Point of care testing: Urine Dip Bedside Urine Glucose 1000 mg/dl Bedside Urine Bilirubin - Negative Bedside Urine Ketone - Negative Urine Specific [place] 1.015 Bedside Urine Occult Blood +++ Bedside Urine pH 6.0 Bedside Urine Protein ++ 100 Bedside Urine Urobilinogen - Negative Bedside Urine Nitrite - Negative Bedside Urine Leukocytes + 70 Esterase Imaging Data Chest x-ray: Radiologist's Impression: [place] [address] XRay Report Signed Patient: Shantanu Underwood MR#: [id number] : 1945 Acct:[id number] Age/Sex: 77 / M Date of Service: 06/21/22 Loc: ED Accession Number: [id number] ?? Procedure: XR chest 1V Ordering Provider: Deep Garner D.O. PROCEDURE:? XR CHEST 1V ? INDICATIONS:? suspected sepsis ? TECHNIQUE:? One view of the chest was acquired.? ? COMPARISON:? [facility], CR, XR CHEST 1V, 06/10/2022, 14:06. ? FINDINGS:? ? Surgical changes and devices:? None.? ? Lungs and pleura:? Low lung volumes and asymmetric left hemidiaphragm elevation, chronic. ?The previously seen left lung base pneumonia is obscured by the diaphragm shadow.? The visible lung booth are clear. ? Mediastinum:? The heart size is obscured, probably enlarged.? Mediastinal contour is normal.? No central vascular congestion. ? Bones and chest wall:? No suspicious bony lesions.? Overlying soft tissues appear unremarkable.? ? IMPRESSION:? ? 1. The left lung base is not seen, obscured by the diaphragm elevation and may obscure a persistent pneumonia. ? 2. The visible lung booth are clear.? No ? ? Dictated by: Chaya Pugh M.D. on 06/21/2022 at 16:00 ? ? Approved by: Chaya Pugh M.D. on 06/21/2022 at 16:02 ECG Data Attestation: I personally reviewed and interpreted this ECG as follows: Interpretation: Sinus tachycardia Ventricular rate of 114 Normal axis Normal QRS Normal QTC No ST T wave changes MDM Narrative Medical decision making narrative: Patient is alert oriented x3. Lungs are clear. Abdomen is soft. No change in bowel habits. No skin changes concerning for cellulitis. Patient is tachycardic. Is febrile. Is COVID positive however was COVID positive about 2 weeks ago and I feel that this is unlikely the source of his infection today. He was started on antibiotics. Urinalysis is consistent with a urinary tract infection. Blood cultures were obtained. Patient's was extremely concerned about the amount of fluids that he received the last time he was here. She stated that he received too much fluids and he became acutely short of br eath and then had to get medicines to help him get rid of the fluid. She had asked that we were more judicious on the amount of fluids he was receiving. He did have 1 episode where his blood pressure dropped to 90 systolic however his map was 65. He was given a 500 cc bolus and this improved his map to 68 in his systolic blood pressure greater than 90. Patient had no changes in mental status during this time. Discuss the need for admission with the patient. He expressed understanding and agreement. Discussed the need for admission with Dr. Pisano who will admit for further evaluation and treatment. Discharge Plan Departure Patient Disposition: Admitted As Inpatient Clinical Impression: Acute UTI Admit Date/Time: 06/21/22 18:11 Admit Provider: Alfonso Pisano
[2022-06-21 15:06] LABS: Add Manual Diff / Slide Review NO; Basophils Absolute Auto 100 /uL (0-100); Basophils Percent Auto 0.4 % (0-2); Eosinophils Absolute Auto 0 /uL (0-450); Eosinophils Percent Auto 0.1 % (2-4); Hematocrit 24.2 % (41-53); Hemoglobin 8.1 g/dL (13.5-17.5); Lymphocytes Absolute Auto 600 /uL (1100-4500); Lymphocytes Percent Auto 4.8 % (25-40); Mean Corpuscular HGB Conc 33.4 % (30-36); Mean Corpuscular Hemoglobin 28.4 PG (26-34); Mean Corpuscular Volume 85.1 fL (80-100); Monocytes Absolute Auto 900 /uL (0-900); Monocytes Percent Auto 7.1 % (3-14); Neutrophils Absolute Auto 10700 /uL (1500-7000); Neutrophils Percent Auto 87.6 % (50-75); Platelet Count 261 X10^3/uL (150-400); Red Blood Cell Count 2.84 X10^6/uL (4.5-5.9); Red Cell Distribution Width 15.8 % (11.6-14.8); White Blood Cell Count 12.2 X10^3/uL (4.5-11.0)
[2022-06-21 15:11] LABS: INR 1.5 (0.9-1.3); Prothrombin Time 17.2 SECONDS (10.1-12.7)
[2022-06-21 15:14] LABS: PTT Partial Thromboplastin Tim 29 SECONDS (26-36)
[2022-06-21 15:16] LABS: Alanine Aminotransferase 24 IU/L (<50); Albumin 3.6 g/dL (3.5-5.0); Albumin Globulin Ratio 1.1 (1.0-2.8); Alkaline Phosphatase 81 U/L (38-126); Aspartate Aminotransferase 17 IU/L (17-59); BUN Creatinine Ratio 16.3 (6-22); Bilirubin Total 0.3 mg/dL (0.2-1.3); Blood Urea Nitrogen 21 mg/dL (9-20); Calcium 8.5 mg/dL (8.4-10.2); Carbon Dioxide 20 mmol/L (22-32); Chloride 103 mmol/L (98-107); Estimated Glomerular Filt Rate 57 mL/min (>60); Globulin 3.4 g/dL (1.7-4.1); Glucose 219 mg/dL (80-110); HEMOLYSIS < 15 (0-50); Lactate (Lactic Acid) 2.4 mmol/L (0.7-2.1); Lipase 70 U/L (23-300); Potassium 4.6 mmol/L (3.4-5.1); Sodium 136 mmol/L (137-145)
[2022-06-21] MEDS: ACETAMINOPHEN 325 MG TABLET 650 MG PO (15:19)
[2022-06-21] MEDS: SODIUM CHLORIDE 0.9% 1,000 ML 1000 ML IV (15:20)
[2022-06-21 15:33] LABS: Procalcitonin 1.42 ng/mL (<0.5)
[2022-06-21 15:43] LABS: Influenza A - CEPHEID Flu A NEGATIVE (NEGATIVE); Influenza B - CEPHEID Flu B NEGATIVE (NEGATIVE); Respiratory Syncytial Virus Negative (Negative)
[2022-06-21 15:49] LABS: COVID-19 CEPHEID 4-PLEX PCR POSITIVE (Negative)
[2022-06-21] MEDS: cefTRIAXone 1,000 MG in SODIUM CHLORIDE 0.9% 100 ML 200 MG IV (15:58)
--- NOTE | 2022-06-21 16:51 | PC.NURSE ---
Provider made aware of pt vitals. RT called for second ekg. Provider went to bedside to assess.
[2022-06-21 17:00] LABS: Reflexed Lactate in 2 Hours Y
[2022-06-21 17:03] LABS: Amorphous Sediment Urine 1+; Bacteria Urine Moderate (10-30); Culture Indicated Urine Specimen Cultured; Mucus Urine 1+ (Negative); RBC Urine 5-10/HPF (0-5/HPF); Squamous Epithelial Cell Urine 1-5 /HPF (0-5/HPF); WBC Urine >100/HPF (0-5/HPF)
[2022-06-21 17:38] LABS: Lactate 2HR (Lactic Acid Rflx) 0.9 mmol/L (0.7-2.1)
[2022-06-21] MEDS: SODIUM CHLORIDE 0.9% 1,000 ML 150 ML IV (17:51)
[2022-06-21] MEDS: predniSONE 20 MG TABLET 40 MG PO (22:09)
[2022-06-21] MEDS: CEFEPIME 1 GM in SODIUM CHLORIDE 0.9% 100 ML IV (22:09)
[2022-06-21 22:16] LABS: Magnesium 1.1 mg/dL (1.6-2.3)
[2022-06-21 22:28] LABS: Troponin I < 0.012 ng/mL (0.01-0.034)
[2022-06-21] MEDS: VANCOMYCIN 1,500 MG/300 ML PIGGYBACK 150 MG IV (22:59)
[2022-06-22] VITALS (8 sets, daily range): BP systolic 114–154; BP diastolic 56–76; PULSE 70–91; RESP 16–30; TEMP 36.1–37.1; O2SAT 94–98
--- NOTE | 2022-06-22 01:06 | PC.ADMIT ---
[email or web address] [id number] Admission Note: The patient,Shantanu Underwood,77 y/o, was given written information regarding hospital policies, unit procedures and contact persons. Patient's smoking status: Former smoker. Vital Signs - 8 hr 06/21/22 17:10 06/21/22 17:10 06/21/22 17:15 Temperature Pulse Rate 84 Respiratory Rate 28 H Blood Pressure 83/53 L 92/58 L Pulse Oximetry 94 Oxygen Delivery Method 06/21/22 17:15 06/21/22 17:20 06/21/22 17:20 Temperature Pulse Rate 86 86 Respiratory Rate 34 H 30 H Blood Pressure 93/55 L Pulse Oximetry 90 L 97 Oxygen Delivery Method Room Air 06/21/22 17:25 06/21/22 17:25 06/21/22 17:30 Temperature Pulse Rate 85 Respiratory Rate 36 H Blood Pressure 88/55 L 94/56 L Pulse Oximetry 93 Oxygen Delivery Method 06/21/22 17:30 06/21/22 17:35 06/21/22 17:35 Temperature Pulse Rate 84 84 Respiratory Rate 31 H 33 H Blood Pressure 91/52 L Pulse Oximetry 95 97 Oxygen Delivery Method 06/21/22 17:40 06/21/22 17:40 06/21/22 17:45 Temperature Pulse Rate 82 Respiratory Rate 29 H Blood Pressure 90/55 L 92/55 L Pulse Oximetry 96 Oxygen Delivery Method 06/21/22 17:45 06/21/22 17:50 06/21/22 17:50 Temperature Pulse Rate 81 81 Respiratory Rate 31 H 25 H Blood Pressure 86/51 L Pulse Oximetry 96 96 Oxygen Delivery Method 06/21/22 17:55 06/21/22 17:55 06/21/22 18:00 Temperature Pulse Rate 82 Respiratory Rate 30 H Blood Pressure 94/56 L 90/52 L Pulse Oximetry 97 Oxygen Delivery Method 06/21/22 18:00 06/21/22 18:05 06/21/22 18:05 Temperature Pulse Rate 80 78 Respiratory Rate 30 H 28 H Blood Pressure 91/53 L Pulse Oximetry 96 96 Oxygen Delivery Method Room Air 06/21/22 18:10 06/21/22 18:10 06/21/22 18:15 Temperature Pulse Rate 77 Respiratory Rate 24 Blood Pressure 91/53 L 99/57 L Pulse Oximetry 96 Oxygen Delivery Method 06/21/22 18:15 06/21/22 18:20 06/21/22 18:20 Temperature Pulse Rate 78 78 Respiratory Rate 22 24 Blood Pressure 99/56 L Pulse Oximetry 95 95 Oxygen Delivery Method 06/21/22 18:25 06/21/22 18:25 06/21/22 18:30 Temperature Pulse Rate 77 Respiratory Rate 24 Blood Pressure 106/61 104/62 Pulse Oximetry 97 Oxygen Delivery Method 06/21/22 18:30 06/21/22 18:35 06/21/22 18:35 Temperature Pulse Rate 78 77 Respiratory Rate 23 22 Blood Pressure 98/56 L Pulse Oximetry 96 96 Oxygen Delivery Method 06/21/22 18:40 06/21/22 18:40 06/21/22 18:45 Temperature Pulse Rate 77 Respiratory Rate 23 Blood Pressure 102/57 L 110/58 L Pulse Oximetry 96 Oxygen Delivery Method 06/21/22 18:45 06/21/22 18:50 06/21/22 18:50 Temperature Pulse Rate 78 85 Respiratory Rate 23 Blood Pressure 113/59 L Pulse Oximetry 97 96 Oxygen Delivery Method 06/21/22 18:55 06/21/22 18:55 06/21/22 19:00 Temperature Pulse Rate 78 Respiratory Rate 24 Blood Pressure 93/52 L 87/53 L Pulse Oximetry 97 Oxygen Delivery Method 06/21/22 19:00 06/21/22 19:05 06/21/22 19:05 Temperature Pulse Rate 77 77 Respiratory Rate 23 25 H Blood Pressure 88/52 L Pulse Oximetry 97 98 Oxygen Delivery Method 06/21/22 19:10 06/21/22 19:10 06/21/22 19:15 Temperature Pulse Rate 76 Respiratory Rate 25 H Blood Pressure 87/51 L 104/69 Pulse Oximetry 97 Oxygen Delivery Method 06/21/22 19:15 06/21/22 19:20 06/21/22 19:20 Temperature Pulse Rate 82 80 Respiratory Rate 42 H 26 H Blood Pressure 117/70 Pulse Oximetry 94 96 Oxygen Delivery Method 06/21/22 19:25 06/21/22 19:25 06/21/22 19:30 Temperature Pulse Rate 79 Respiratory Rate 26 H Blood Pressure 116/61 113/66 Pulse Oximetry 94 Oxygen Delivery Method 06/21/22 19:30 06/21/22 19:35 06/21/22 19:35 Temperature Pulse Rate 79 82 Respiratory Rate 29 H 28 H Blood Pressure 120/69 Pulse Oximetry 96 91 Oxygen Delivery Method 06/21/22 19:40 06/21/22 19:40 06/21/22 19:45 Temperature Pulse Rate 87 Respiratory Rate 25 H Blood Pressure 119/69 95/67 Pulse Oximetry Oxygen Delivery Method 06/21/22 19:45 06/21/22 20:34 06/21/22 21:00 Temperature 98.7 F 97.9 F Pulse Rate 93 H 107 H Respiratory Rate 33 H 24 Blood Pressure 102/61 Pulse Oximetry 92 95 Oxygen Delivery Method 06/21/22 22:26 06/22/22 00:59 Temperature 98.0 F Pulse Rate 91 H Respiratory Rate 28 H Blood Pressure 124/56 L Pulse Oximetry 94 Oxygen Delivery Method Room Air Patient admitted to room 216 at 2053 from ER and transferred into bed using slider board. Is alert and oriented. Breath sounds CTA with RA sat of 95% but is tachypneic with RR of 24 on admission and now 28; denies SOB. HRR with telemetry reading of SR + 1st degree AVB + BBB with premature atrial contractions on admit and SR at 0000 reading. Denies nausea. BT present and abdomen is soft. Denies dysuria and is voiding per urinal. Is able to turn himself in bed. Gait not assessed at this time but patient is globally weak. Refused to have SCD's placed despite education re: benefits but is on blood thinners. Denies pain at time of assessment and has been mostly sleeping since. Placed in COVID isolation precautions. Fall risk score is high and bed alarm is activated. Oriented to bed controls and use of call light.
[2022-06-22 01:55] LABS: B. parapertussis Not Detected (Not Detecte); Bordetella pertussis Not Detected (Not Detecte); Chlamydophila pneumoniae Not Detected (Not Detect); Coronavirus 229E Not Detected (Not Detect); Coronavirus HKU1 Not Detected (Not Detect); Coronavirus NL 63 Not Detected (Not Detect); Coronavirus OC43 Not Detected (Not Detect); Human Metapneumovirus Not Detected (Not Detect); Human Rhinovirus/Enterovirus Not Detected (Not Detect); Influenza A Not Detected (Not Detect); Influenza B Not Detected (Not Detect); Mycoplasma pneumoniae Not Detected (Not Detect); Parainfluenza Virus 1 Not Detected (Not Detect); Parainfluenza Virus 2 Not Detected (Not Detect); Parainfluenza Virus 3 Not Detected (Not Detect); Parainfluenza Virus 4 Not Detected (Not Detect); Respiratory Syncytial Virus Not Detected (Not Detect); SARS- CoV-2 Detected (Not Detecte)
[2022-06-22 01:57] LABS: Adenovirus Not Detected (Not Detect)
[2022-06-22 03:23] LABS: Troponin I < 0.012 ng/mL (0.01-0.034)
[2022-06-22] MEDS: ALBUTEROL HFA MDI 60 PUFF/8 GM INHALER INH (03:41)
--- NOTE | 2022-06-22 04:45 | PM.HP.1 ---
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 Patient continues to be positive for COVID-asymptomatic. He has been working with occupational therapy earlier today when he started to have shortness of breath.? His states that his heart rate was elevated.? Patient states he is feeling weak.? Patient denies chest pain, shortness of breath, cough, congestion, fever, body aches, chills, abdominal pain, nausea, vomiting, diarrhea, flank pain, urinary frequency, urgency, dysuria, skin changes, change in bowel habits.? On admit patient is febrile temp 101.1?, continues to have low blood pressure 95/67, HR 93, continues to be tachypneic RR 33, O2 saturation 92% on room air not requiring any oxygenation. Patient does have a small white count 12.2 with a left shift neutrophils 10,700, H&H remained stable 8.1/24.2, patient does present with CALIXTO today BUN 21, bicarb 20, creatinine 1.29, GFR 57, glucose 219, lactate 2.4, procalcitonin 1.42, troponin WNL, urine positive for RBC, WBC, moderate bacteria mucus culture pending, MRSA negative, respiratory panel negative, with the exception of COVID positive. Patient admitted for CALIXTO, with leukocytosis suspected UTI, an asymptomatic COVID. Patient History Medical History (Updated 06/22/22 @ 04:59 by JARED Timmons) Acute renal failure syndrome Anticoagulated on heparin Arthritis Basal cell carcinoma Bilateral nephrolithiasis Brain concussion Udckdlk-Fyirj-Birbr disease Hernia History of malignant neoplasm of colon (05/29/15) History of non-ST elevation myocardial infarction (NSTEMI) History of renal calculi Hypertension, essential Mixed hyperlipidemia Peripheral vascular disease of extremity Sleep apnea in adult Surgical History History of heart artery stent Hx of cystoscopy (10/16/21) Hx of cystoscopy (12/03/21) Hx of cystoscopy (03/25/22) S/P ureteral stent placement Status post colectomy (~1995) Status post vascular bypass Family & Social History Family History Father Ulcer History of blood clots Mother No known problems Social History: household members spouse Prior Living Arrangements House lives independently Yes Safety & Behavioral: Feels Safe in Current Yes Environment Been Physically Hurt or No Threatened By a Person Tobacco & Substance use: Tobacco type cigarettes Smoking Status Former smoker alcohol intake current alcohol intake frequency a few times a month Substance Use Type does not use Meds Home Medications and Allergies Home Medications Medication Instructions Recorded Confirmed Type clopidogrel 75 mg tablet (Plavix) 75 mg PO DAILY #90 tabs 05/31/21 06/21/22 Rx albuterol sulfate 90 mcg/actuation 1 puff inhalation Q6H PRN 08/30/21 06/21/22 Rx aerosol inhaler (ProAir HFA) shortness of breath or wheezing #8.5 grams amiodarone 200 mg tablet 200 mg PO DAILY 05/22/22 06/21/22 History aspirin 81 mg tablet,delayed 81 mg PO DAILY #10 tabs 05/27/22 06/21/22 Rx release polyethylene glycol 3350 17 gram 17 gm PO DAILY PRN Constipation 05/27/22 06/21/22 Rx oral powder packet #10 ea ropinirole 1 mg tablet 1 mg PO BEDTIME #10 tabs 05/27/22 06/21/22 Rx acetaminophen 325 mg tablet 500 mg PO Q6H PRN Fever/Mild Pain 06/10/22 06/21/22 History (1-3) metoprolol succinate 25 mg 12.5 mg PO DAILY #30 tabs 06/11/22 06/21/22 Rx tablet,extended release 24 hr atorvastatin 20 mg tablet 20 mg PO BEDTIME #90 tabs 06/18/22 06/21/22 Rx empagliflozin 10 mg tablet 10 mg PO DAILY #30 tabs 06/18/22 06/21/22 Rx trazodone 50 mg tablet 50 mg PO BEDTIME PRN insomnia #30 06/18/22 06/21/22 Rx tabs Allergies Allergy/AdvReac Type Severity Reaction Status Date / Time No Known Drug Allergies Allergy Verified 06/18/22 10:05 Review of Systems Review of Systems Narrative: All 12 point systems reviewed with the patient and are negative except otherwise documented. Exam Vital Signs (past 8 hours): - 06/21/22 21:00 06/21/22 22:26 06/22/22 00:59 Temperature 97.9 F 98.0 F Pulse Rate 107 H 91 H Respiratory Rate 24 28 H Blood Pressure 102/61 124/56 L Pulse Oximetry 95 94 Oxygen Delivery Method Room Air Oxygen Flow Rate Fraction of Inspired Oxygen 06/22/22 03:41 Temperature Pulse Rate 80 Respiratory Rate 30 H Blood Pressure Pulse Oximetry 94 Oxygen Delivery Method Room Air Oxygen Flow Rate 0 Fraction of Inspired Oxygen 21 Fraction of Inspired Oxygen 21 SaO2/FiO2 Ratio 447 Oxygen Delivery Method Room Air Oxygen Flow Rate 0 Narrative Exam Narrative: General: Patient is a well-developed, well-nourished male chronically ill-appearing, the resting comfortably in bed, able to converse easily in no distress at this time. HEENT: Normocephalic, atraumatic, extraocular muscles intact, oral pharynx is clear and mucous membranes are moist. Neck is supple and symmetric, trachea is midline, no adenopathy, no thyroid enlargement, nontender, no masses palpated. Negative for JVD Chest: Normal AP diameter and contour without kyphoscoliosis, no nasal flaring, retractions, or tachypneic labored breathing Lungs: Auscultation of all lung booth are clear without adventitious sounds, wheezes, rhonchi, or rales. Cardio: regular rate and rhythm without murmur, rubs, or gallops, no carotid bruit, no cardiac pulsations present. Abdomen: Soft nontender, negative for organomegaly, or masses. Bowel sounds are present in all 4 quadrants without guarding or rebound, no CVA tenderness. Musculoskeletal: Muscle strength and tone are equal within normal limits, no deformity, crepitus, effusions, cyanosis, clubbing or edema present. Full range of motion intact radial and pedal pulses are normal. Skin: Warm dry and intact without rashes, ulcerations or petechiae. Neuro: Alert and orientated x3, moves all extremities, sensation to touch intact, no gross deficits noted of cranial nerves. Psych: Patient has a well-kept appearance, appropriate affect, mental status attitude thought context and judgment are appropriate for age. Objective Labs Result Diagrams: 06/21/22 14:55 06/21/22 14:55 Labs: Laboratory Results - last 24 hr 06/21/22 06/21/22 06/21/22 14:55 14:55 14:55 WBC 12.2 H RBC 2.84 L Hgb 8.1 L Hct 24.2 L MCV 85.1 MCH 28.4 MCHC 33.4 RDW 15.8 H Plt Count 261 Neut % (Auto) 87.6 H Lymph % (Auto) 4.8 L Lawrence % (Auto) 7.1 Eos % (Auto) 0.1 L Baso % (Auto) 0.4 Neut # (Auto) 77844 H Lymph # (Auto) 600 L Lawrence # (Auto) 900 Eos # (Auto) 0 Baso # (Auto) 100 PT 17.2 H INR 1.5 H APTT 29 Sodium Potassium Chloride Carbon Dioxide BUN Creatinine Estimated GFR BUN/Creatinine Ratio Glucose Lactate Calcium Magnesium Total Bilirubin AST ALT Alkaline Phosphatase Troponin I Total Protein Albumin Globulin Albumin/Globulin Ratio Lipase Procalcitonin Urine RBC Urine WBC Ur Squamous Epith Cells Amorphous Sediment Urine Bacteria Urine Mucus Ur Culture Indicated? Nasal Screen MRSA (PCR) Chlamy pneumoniae PCR Adenovirus (PCR) B. pertussis DNA (PCR) B.parapertussis DNA PCR Coronavirus OC43 (PCR) Coronavirus HKU1 (PCR) Coronavirus 229E (PCR) SARS-CoV-2 (PCR) Positive H Coronavirus NL63 (PCR) Human Metapneumovir PCR Influenza A (RT-PCR) Flu a negative Influenza Type A (PCR) Influenza B (RT-PCR) Flu b negative Influenza Type B (PCR) M. pneumoniae (PCR) Parainfluenza 1 (PCR) Parainfluenza 2 (PCR) Parainfluenza 3 (PCR) Parainfluenza 4 (PCR) RSV (PCR) Negative Entero/Rhino (PCR) 06/21/22 06/21/22 06/21/22 14:55 14:55 16:10 WBC RBC Hgb Hct MCV MCH MCHC RDW Plt Count Neut % (Auto) Lymph % (Auto) Lawrence % (Auto) Eos % (Auto) Baso % (Auto) Neut # (Auto) Lymph # (Auto) Lawrence # (Auto) Eos # (Auto) Baso # (Auto) PT INR APTT Sodium 136 L Potassium 4.6 Chloride 103 Carbon Dioxide 20 L BUN 21 H Creatinine 1.29 H Estimated GFR 57 L BUN/Creatinine Ratio 16.3 Glucose 219 H Lactate 2.4 H Calcium 8.5 Magnesium Total Bilirubin 0.3 AST 17 ALT 24 Alkaline Phosphatase 81 Troponin I Total Protein 7.0 Albumin 3.6 Globulin 3.4 Albumin/Globulin Ratio 1.1 Lipase 70 Procalcitonin 1.42 H Urine RBC 5-10/hpf H Urine WBC >100/hpf H Ur Squamous Epith Cells 1-5 /hpf Amorphous Sediment 1+ Urine Bacteria Moderate (10-30) H Urine Mucus 1+ H Ur Culture Indicated? Specimen cultured Nasal Screen MRSA (PCR) Chlamy pneumoniae PCR Adenovirus (PCR) B. pertussis DNA (PCR) B.parapertussis DNA PCR Coronavirus OC43 (PCR) Coronavirus HKU1 (PCR) Coronavirus 229E (PCR) SARS-CoV-2 (PCR) Coronavirus NL63 (PCR) Human Metapneumovir PCR Influenza A (RT-PCR) Influenza Type A (PCR) Influenza B (RT-PCR) Influenza Type B (PCR) M. pneumoniae (PCR) Parainfluenza 1 (PCR) Parainfluenza 2 (PCR) Parainfluenza 3 (PCR) Parainfluenza 4 (PCR) RSV (PCR) Entero/Rhino (PCR) 06/21/22 06/21/22 06/21/22 17:20 21:45 21:45 WBC RBC Hgb Hct MCV MCH MCHC RDW Plt Count Neut % (Auto) Lymph % (Auto) Lawrence % (Auto) Eos % (Auto) Baso % (Auto) Neut # (Auto) Lymph # (Auto) Lawrence # (Auto) Eos # (Auto) Baso # (Auto) PT INR APTT Sodium Potassium Chloride Carbon Dioxide BUN Creatinine Estimated GFR BUN/Creatinine Ratio Glucose Lactate 0.9 Calcium Magnesium 1.1 L Total Bilirubin AST ALT Alkaline Phosphatase Troponin I < 0.012 Total Protein Albumin Globulin Albumin/Globulin Ratio Lipase Procalcitonin Urine RBC Urine WBC Ur Squamous Epith Cells Amorphous Sediment Urine Bacteria Urine Mucus Ur Culture Indicated? Nasal Screen MRSA (PCR) Chlamy pneumoniae PCR Adenovirus (PCR) B. pertussis DNA (PCR) B.parapertussis DNA PCR Coronavirus OC43 (PCR) Coronavirus HKU1 (PCR) Coronavirus 229E (PCR) SARS-CoV-2 (PCR) Coronavirus NL63 (PCR) Human Metapneumovir PCR Influenza A (RT-PCR) Influenza Type A (PCR) Influenza B (RT-PCR) Influenza Type B (PCR) M. pneumoniae (PCR) Parainfluenza 1 (PCR) Parainfluenza 2 (PCR) Parainfluenza 3 (PCR) Parainfluenza 4 (PCR) RSV (PCR) Entero/Rhino (PCR) 06/22/22 06/22/22 06/22/22 00:53 00:54 02:55 WBC RBC Hgb Hct MCV MCH MCHC RDW Plt Count Neut % (Auto) Lymph % (Auto) Lawrence % (Auto) Eos % (Auto) Baso % (Auto) Neut # (Auto) Lymph # (Auto) Lawrence # (Auto) Eos # (Auto) Baso # (Auto) PT INR APTT Sodium Potassium Chloride Carbon Dioxide BUN Creatinine Estimated GFR BUN/Creatinine Ratio Glucose Lactate Calcium Magnesium Total Bilirubin AST ALT Alkaline Phosphatase Troponin I < 0.012 Total Protein Albumin Globulin Albumin/Globulin Ratio Lipase Procalcitonin Urine RBC Urine WBC Ur Squamous Epith Cells Amorphous Sediment Urine Bacteria Urine Mucus Ur Culture Indicated? Nasal Screen MRSA (PCR) Negative for mrsa Chlamy pneumoniae PCR Not detected Adenovirus (PCR) Not detected B. pertussis DNA (PCR) Not detected B.parapertussis DNA PCR Not detected Coronavirus OC43 (PCR) Not detected Coronavirus HKU1 (PCR) Not detected Coronavirus 229E (PCR) Not detected SARS-CoV-2 (PCR) Detected H Coronavirus NL63 (PCR) Not detected Human Metapneumovir PCR Not detected Influenza A (RT-PCR) Influenza Type A (PCR) Not detected Influenza B (RT-PCR) Influenza Type B (PCR) Not detected M. pneumoniae (PCR) Not detected Parainfluenza 1 (PCR) Not detected Parainfluenza 2 (PCR) Not detected Parainfluenza 3 (PCR) Not detected Parainfluenza 4 (PCR) Not detected RSV (PCR) Not detected Entero/Rhino (PCR) Not detected Assessment & Plan Assessment & Plan narrative: Shantanu Underwood is a 69-year-old male history of Utgcoam-Ixdwr-Utgeg dz with related chronic muscular deconditioning/weakness, chronic left diaphragmatic paralysis, PVD, HLD, sleep apnea, RLS, colon cancer, DM type 2, hypertension, obstructive bilateral nephrolithiasis with stents, recent NSTEMI, with heart stents x2 (plavix/ASA), gouty arthritis and trophi gout, cardiorenal syndrome, with multiple hospitalizations:[place] 04/17/2022, [facility] 05/27/2022, hospitalized [place] for COVID 06/10/22 ?Brought in for evaluation of shortness of breath and tachycardia.? The patient has multiple hospitalizations for sepsis septic shock urosepsis and urinary complications places the patient at much higher risk for medical and surgical complications, increased difficulty and complexity of medical and surgical interventions, with an increased chance of poor outcomes such as morbidity and mortality.? The patient's Rcclvpm-Zebmf-Ozdbq dz with related chronic muscular deconditioning/weakness, chronic left diaphragmatic paralysis, recent NSTEMI, with heart stents x2, and CHF will impact his oxygenation, impairing his recovery from serious illness.?? 1. CALIXTO, with leukocytosis, neutrophilic, likely UTI, acute, recurrent, present on admission -in the setting of acute renal failure syndrome (CKD) from hypertensive diabetes type 2 ?-initiate cefepime and vanco pending culture data ?- urine appears infected-culture pending patient has had frequent urinary tract infections leading to sepsis and septic shock -NS at 80 cc/HR 2. COVID 19 infection, asymptomatic, acute, present on admission -patient tested positive on last admit 06/10/2022 -patient is asymptomatic and does meet standards for protocol treatment -ordered respiratory consult, albuterol HFA inhaler, prednisone 40 mg q.day, incentive spirometry. 4. Chronic diastolic heart failure, chronic, present on admission -Last Echo 05/24/2022:jection fraction is estimated to be 55-60%. ?- hold home furosemide given hypotension 5. PVD, chronic, present on admission ?- continue asa and plavix. 6. Recent NSTEMI(04/17/2022) with coronary artery stent placement x2, essential hypertension, cardiorenal syndrome, acute on chronic present on admission -Troponins negative x2, -due to hypotensive holding oral Lasix -Continue lisinopril, losartan, metoprolol, amiodarone, atenolol -continue patient's Plavix, ASA -will trend troponin, patient placed on telemedicine 6. Anemia, likely secondary to chronic illness, acute on chronic, present on admission -patient did experience multiple ground level falls and is on chronic Plavix -initial H&H 8.1/24.2, 9.4/28.4 platelets 148-04/18/2022 10.7/32.6 platelets 134 patient is slightly below lift baseline most likely represents dilutional secondary to sepsis bolus hydration. -will continue to trend H&H and monitor for bleeding. 7. Restless leg syndrome, chronic, present on admission -continue Requip 8. Hyperlipidemia, mixed, chronic, secondary to type 2 diabetes, chronic, present on admission -Last 05/23/2022 A1c 5.0% on admission today, previous A1c 6.6 04/18/2022 -based on current up-to-date guidelines regarding A1c in the elderly patient's A1c allowed up to 7.5 without medication management-to avoid hypoglycemia in the elderly and related risks and complications. - patient follow-up with PCP or Nephrology in 3 months for A1c repeat and re-evaluation. -patient admitted under diabetic protocols, monitor for hypoglycemia/hyperglycemia, low-dose sliding scale in place if needed -continue lisinopril for renal/cardiovascular protective Code status:DNR Surrogate decision maker: Jayla Underwood COVID PCR:Negative DVT/VTE prophylaxis:? Heparin and SCDs Disposition: Patient is admitted to acute care for CALIXTO likely secondary to UTI, an asymptomatic COVID who has had repeated hospitalizations and surgical interventions in the last 3 months. I have utilized all available immediate resources to obtain, update, or review the patient's current medications. I confirmed that the patient's advanced care plan is present, Code status is documented and/or surrogate decision maker is listed in the patient's medical record. Time Spent With Patient Critical Care time: I spent a total of [] minutes of critical care time on this patient's care today; this time is exclusive of procedural time. Quality VTE Deep Vein Thrombosis/Pulmonary Embolism Present on Admission: No
[2022-06-22] MEDS: SODIUM CHLORIDE 0.9% 1,000 ML 80 ML IV (05:15)
[2022-06-22] MEDS: MAGNESIUM SULFATE 4 GM/100 ML PIGGYBACK IV (05:31)
[2022-06-22 05:35] LABS: Add Manual Diff / Slide Review NO; Basophils Absolute Auto 0 /uL (0-100); Basophils Percent Auto 0.3 % (0-2); Eosinophils Absolute Auto 0 /uL (0-450); Eosinophils Percent Auto 0.1 % (2-4); Lactate (Lactic Acid) 0.6 mmol/L (0.7-2.1); Lymphocytes Absolute Auto 300 /uL (1100-4500); Lymphocytes Percent Auto 4.5 % (25-40); Mean Corpuscular HGB Conc 33.3 % (30-36); Mean Corpuscular Hemoglobin 28.7 PG (26-34); Mean Corpuscular Volume 86.1 fL (80-100); Monocytes Absolute Auto 300 /uL (0-900); Monocytes Percent Auto 4.2 % (3-14); Neutrophils Absolute Auto 6800 /uL (1500-7000); Neutrophils Percent Auto 90.9 % (50-75); Platelet Count 216 X10^3/uL (150-400); Red Cell Distribution Width 15.7 % (11.6-14.8); White Blood Cell Count 7.5 X10^3/uL (4.5-11.0)
[2022-06-22 05:36] LABS: Alanine Aminotransferase 18 IU/L (<50); Albumin Globulin Ratio 0.9 (1.0-2.8); Alkaline Phosphatase 75 U/L (38-126); Aspartate Aminotransferase 14 IU/L (17-59); BUN Creatinine Ratio 16.5 (6-22); Bilirubin Total 0.2 mg/dL (0.2-1.3); Blood Urea Nitrogen 21 mg/dL (9-20); Calcium 7.6 mg/dL (8.4-10.2); Carbon Dioxide 17 mmol/L (22-32); Chloride 109 mmol/L (98-107); Estimated Glomerular Filt Rate 58 mL/min (>60); Globulin 3.4 g/dL (1.7-4.1); Glucose 154 mg/dL (80-110); HEMOLYSIS < 15 (0-50); Magnesium 1.2 mg/dL (1.6-2.3); Potassium 4.4 mmol/L (3.4-5.1); Sodium 139 mmol/L (137-145); Total Protein 6.4 g/dL (6.3-8.2)
[2022-06-22 05:51] LABS: Procalcitonin 1.55 ng/mL (<0.5)
[2022-06-22 05:53] LABS: Hematocrit 20.7 % (41-53)
[2022-06-22 05:54] LABS: Hemoglobin 6.9 g/dL (13.5-17.5)
--- NOTE | 2022-06-22 08:00 | PM.PN.1 ---
Subjective Subjective Date Patient Seen: 06/22/22 Interval history: Patient feeling better with no fevers. Having some anxiety and requesting something for it. Exam Vital Signs (past 8 hours): Fraction of Inspired Oxygen 21 SaO2/FiO2 Ratio 461 Oxygen Delivery Method Room Air Oxygen Flow Rate 0 Narrative Exam Narrative: General: Patient is a well-developed, well-nourished male chronically ill-appearing, the resting comfortably in bed, able to converse easily in no distress at this time. HEENT: Normocephalic, atraumatic, extraocular muscles intact, oral pharynx is clear and mucous membranes are moist. Neck is supple and symmetric, trachea is midline, no adenopathy, no thyroid enlargement, nontender, no masses palpated. Negative for JVD Chest: Normal AP diameter and contour without kyphoscoliosis, no nasal flaring, retractions, or tachypneic labored breathing Lungs: Auscultation of all lung booth are clear without adventitious sounds, wheezes, rhonchi, or rales. Cardio: regular rate and rhythm without murmur, rubs, or gallops, no carotid bruit, no cardiac pulsations present. Abdomen: Soft nontender, negative for organomegaly, or masses. Bowel sounds are present in all 4 quadrants without guarding or rebound, no CVA tenderness. Musculoskeletal: Muscle strength and tone are equal within normal limits, no deformity, crepitus, effusions, cyanosis, clubbing or edema present. Full range of motion intact radial and pedal pulses are normal. Skin: Warm dry and intact without rashes, ulcerations or petechiae. Neuro: Alert and orientated x3, moves all extremities, sensation to touch intact, no gross deficits noted of cranial nerves. Psych: Patient has a well-kept appearance, appropriate affect, mental status attitude thought context and judgment are appropriate for age. Objective Labs Result Diagrams: 06/24/22 05:15 06/24/22 05:15 Labs: Laboratory Results - last 24 hr 06/24/22 06/24/22 05:15 05:15 WBC 6.4 RBC 2.78 L Hgb 8.0 L Hct 23.9 L MCV 86.2 MCH 28.7 MCHC 33.3 RDW 15.3 H Plt Count 267 Neut % (Auto) 81.1 H Lymph % (Auto) 10.7 L Dade % (Auto) 8.1 Eos % (Auto) 0.0 L Baso % (Auto) 0.1 Neut # (Auto) 5200 Lymph # (Auto) 700 L Dade # (Auto) 500 Eos # (Auto) 0 Baso # (Auto) 0 Sodium 139 Potassium 4.6 Chloride 109 H Carbon Dioxide 18 L BUN 28 H Creatinine 1.12 Estimated GFR > 60 BUN/Creatinine Ratio 25.0 H Glucose 209 H Calcium 8.4 Magnesium 1.9 Total Bilirubin 0.1 L AST 21 ALT 39 Alkaline Phosphatase 75 Total Protein 6.7 Albumin 3.4 L Globulin 3.3 Albumin/Globulin Ratio 1.0 [facility] Medical History (Updated 06/22/22 @ 04:59 by JANETH Timmons-JORDAN) Acute renal failure syndrome Anticoagulated on heparin Arthritis Basal cell carcinoma Bilateral nephrolithiasis Brain concussion Knfpyfq-Lyzgp-Ihpuv disease Hernia History of malignant neoplasm of colon (05/29/15) History of non-ST elevation myocardial infarction (NSTEMI) History of renal calculi Hypertension, essential Mixed hyperlipidemia Peripheral vascular disease of extremity Sleep apnea in adult Surgical History History of heart artery stent Hx of cystoscopy (10/16/21) Hx of cystoscopy (12/03/21) Hx of cystoscopy (03/25/22) S/P ureteral stent placement Status post colectomy (~1995) Status post vascular bypass Family History Father Ulcer History of blood clots Mother No known problems Social History marital status: household members: spouse lives independently: Yes occupational status: other Smoking Status: Former smoker alcohol intake: current substance use type: does not use Type(s) of exercise: bicycling frequency: 1-2 times per week Assessment & Plan Assessment & Plan narrative: Shantanu Underwood is a 69-year-old male history of Bjkdwai-Maxhj-Pobqo dz with related chronic muscular deconditioning/weakness, chronic left diaphragmatic paralysis, PVD, HLD, sleep apnea, RLS, colon cancer, DM type 2, hypertension, obstructive bilateral nephrolithiasis with stents, recent NSTEMI, with heart stents x2 (plavix/ASA), gouty arthritis and trophi gout, cardiorenal syndrome, with multiple hospitalizations:[place] 04/17/2022, [facility] 05/27/2022, hospitalized [place] for COVID 06/10/22 ?Brought in for evaluation of shortness of breath and tachycardia.? The patient has multiple hospitalizations for sepsis septic shock urosepsis and urinary complications places the patient at much higher risk for medical and surgical complications, increased difficulty and complexity of medical and surgical interventions, with an increased chance of poor outcomes such as morbidity and mortality.? The patient's Sbahrdg-Chvuh-Qwlwu dz with related chronic muscular deconditioning/weakness, chronic left diaphragmatic paralysis, recent NSTEMI, with heart stents x2, and CHF will impact his oxygenation, impairing his recovery from serious illness.?? 1. Possible pyelonephritis, acute, recurrent, present on admission, improving -presented with fever 103F and UA with >100 WBC's -initiated cefepime and vanco -urine culture no growth -continue empiric abx 2. COVID 19 infection, asymptomatic, acute, present on admission -patient tested positive on last admit 06/10/2022 -patient is asymptomatic and does meet standards for protocol treatment -isolation per hospital policy, but likely not contagious any longer 4. Chronic diastolic heart failure, chronic, present on admission -Last Echo 05/24/2022:jection fraction is estimated to be 55-60%. ?- hold home furosemide given hypotension 5. PVD, chronic, present on admission ?- continue asa and plavix. 6. Recent NSTEMI(04/17/2022) with coronary artery stent placement x2, essential hypertension, cardiorenal syndrome, acute on chronic present on admission -Troponins negative x2, -due to hypotensive holding oral Lasix -Continue lisinopril, losartan, metoprolol, amiodarone, atenolol -continue patient's Plavix, ASA -trops negative 6. Anemia, likely secondary to chronic illness, acute on chronic, present on admission -patient did experience multiple ground level falls and is on chronic Plavix -initial H&H 8.1/24.2, 9.4/28.4 platelets 148-04/18/2022 10.7/32.6 platelets 134 patient is slightly below lift baseline most likely represents dilutional secondary to sepsis bolus hydration. -Hgb dipped to 6.3, giving 1 unit PRBC -guaiac negative 7. Restless leg syndrome, chronic, present on admission -continue Requip 8. Hyperlipidemia, mixed, chronic, secondary to type 2 diabetes, chronic, present on admission -Last 05/23/2022 A1c 5.0% on admission today, previous A1c 6.6 04/18/2022 -based on current up-to-date guidelines regarding A1c in the elderly patient's A1c allowed up to 7.5 without medication management-to avoid hypoglycemia in the elderly and related risks and complications. - patient follow-up with PCP or Nephrology in 3 months for A1c repeat and re-evaluation. -patient admitted under diabetic protocols, monitor for hypoglycemia/hyperglycemia, low-dose sliding scale in place if needed -continue lisinopril for renal/cardiovascular protective Code status:DNR Surrogate decision maker: Jayla Underwood COVID PCR:Negative DVT/VTE prophylaxis:? Heparin and SCDs Disposition: Likely home in 1-2 days. Time Spent With Patient Critical Care time: I spent a total of [] minutes of critical care time on this patient's care today; this time is exclusive of procedural time. Quality VTE Deep Vein Thrombosis/Pulmonary Embolism Present on Admission: No
[2022-06-22] MEDS: CEFEPIME 1 GM in SODIUM CHLORIDE 0.9% 100 ML IV ×2 (09:42→21:06)
[2022-06-22] MEDS: METOPROLOL ER 25 MG TABLET 12.5 MG PO (09:43)
[2022-06-22] MEDS: ASPIRIN EC 81 MG TABLET PO (09:43)
[2022-06-22] MEDS: predniSONE 20 MG TABLET 40 MG PO (09:43)
[2022-06-22] MEDS: ENOXAPARIN 40 MG/0.4 ML SYRINGE SUBCUT (09:44)
[2022-06-22] MEDS: SODIUM CHLORIDE 0.9% FLUSH 10 ML IV ×2 (09:45→21:07)
[2022-06-22] MEDS: CLOPIDOGREL 75 MG TABLET PO (09:51)
[2022-06-22 11:18] LABS: Hematocrit 22.9 % (41-53); Hemoglobin 7.6 g/dL (13.5-17.5)
--- NOTE | 2022-06-22 11:24 | CM.DANOTE ---
Discharge Assessment Note: Case reviewed, unable to meet with patient due to isolation precautions. Unable to reach patient by phone. Called and spoke with spouse/POA re patient's level of function. Payer: Medicare and [facility] PCP: Dmitry Ferguson 77 year old male admitted yesterday from home with fever, +Covid, [place], possible UTI. Patient has multiple co-morbidities and h/o neuromuscular disease. This is his 3rd admit in ~month. He has been to two SNFs post hospital discharges per : one in [place] and also [facility]. He has only been home 2 weeks and was just getting started with [facility]. Patient at baseline requires some assist and spouse provides assistance. He is compromised due to his neuromuscular disease. Plan: SNF vs Home with HH, spouse available for transport. SADE Discharge Planning/Care Management CM Discharge Assessment Start: 06/22/22 10:59 Freq: Status: Active Protocol: Document 06/22/22 11:00 (Rec: 06/22/22 11:13 [id number]) Discharge Planning Assessment Assigned Health And Safety Trainer Keena Sage RN/KRISP Advance Directives? Yes Advance Directives on File Yes History Provided By Family Member,Medical Record Has Patient been admitted in last 30 Yes days? Comment 3rd admit in a about a month. Prior Living Arrangements House Household Members spouse Type of transporation used prior to Relies on Others admit Independent with ADL's No Is patient alert and oriented? Yes Needs Assistance With Bathing,Grooming,Meal Prep, Toileting,Managing Medications ,Home Chores / Shopping Caregiver for Another No Comment [facility] Barriers to Discharge No Comment Supportive spouse at home Discharge Plan Home Transportation Arrangement Spouse Referrals Initiated Home Health Additional Comment SNF vs HH. Sent Fax to [facility] who he is current with. If patient plan is home with home health If home with HH, will need : Has signed face to face form been resumption of care, [facility] completed? Whiteboard Updated in Patient Room with No name and ext. # of Health And Safety Trainer Review Status In Process Next Review Type Continued Stay Review
[2022-06-22 11:30] LABS: Troponin I < 0.012 ng/mL (0.01-0.034)
--- NOTE | 2022-06-22 12:56 | DI.CT.S_ITS ---
PROCEDURE: CT KIDNEY URETER BLADDER (KUB) INDICATIONS: flank pain, history of kidney stones TECHNIQUE: Axial sections were acquired from the lung bases to the pubic symphysis. Coronal and sagittal reformats were performed. For radiation dose reduction, the following was used: automated exposure control, adjustment of mA and/or kV according to patient size. COMPARISON: [facility], CT, CT KIDNEY URETER BLADDER (KUB), 03/23/2022, 1:43. FINDINGS: Image quality: This examination is limited by involuntary motion artifact. Lung bases: Dependent atelectasis is seen at the lung bases, right worse than left. Heart: No significant findings. URINARY: Right Kidney: Moderate right-sided hydronephrosis is seen. Mild perinephric fat stranding is seen. No nonobstructing kidney stones are seen. Right Ureter: Moderate hydroureter seen proximally. No definite ureteral stones are seen. There are pelvic phleboliths seen, which are separate from the distal ureters. Left Kidney: No stones or hydronephrosis. Left Ureter: No hydroureter. Bladder: Normal wall thickness. No stones. ABDOMEN: Liver: Unremarkable. Numerous subhepatic postoperative clips are seen. Gallbladder: Removed. Biliary ducts: Unremarkable. Pancreas: Unremarkable. Spleen: Unremarkable. Adrenal Glands: Unremarkable. Stomach and Bowel: There is a moderate amount of stool seen within the distal colon. The rectal vault measures 7.2 cm transversely. No dilated loops of small bowel are seen. Peritoneum: No abnormal intraperitoneal fluid. No free air. Ventral Wall: Anterior abdominal wall laxity is seen, without jamison hernia. Abdominal Nodes: No enlarged retroperitoneal or mesenteric lymph nodes. Vessels: Aorta and inferior vena cava are normal in size. PELVIS: Pelvic Organs: The prostate is enlarged, measuring 6 cm transversely.. Pelvic Nodes: Unremarkable. Miscellaneous: No inguinal hernias are seen. Bones: Unremarkable. IMPRESSION: On the right, there is moderate hydroureter and hydronephrosis seen. However, no stones are seen at this time. The previously seen distal right ureteral stone has resolved. There are phleboliths seen distally, which are seen separate from the distal ureter. The previously seen right-sided nonobstructing kidney stones are no longer seen. There is a moderate amount of stool seen within the distal colon, including prominent stool within the rectal vault. Incidental note is made of: Dependent atelectasis at the lung bases Cholecystectomy Numerous subhepatic clips Anterior abdominal wall laxity, without jamison hernia Enlarged prostate Dictated by: Willy Pendleton M.D. on 06/22/2022 at 13:04 Approved by: Willy Pendleton M.D. on 06/22/2022 at 13:11
[2022-06-22] MEDS: PSYLLIUM HUSK 1 PACKET PO (14:34)
--- NOTE | 2022-06-22 15:51 | PT.IIE ---
Current Diagnoses Acute kidney failure, unspecified (06/21/22) Surgical History (Last Reviewed 06/22/22 @ 04:59 by Dang Fernández [facility]) History of heart artery stent Hx of cystoscopy (10/16/21) Hx of cystoscopy (12/03/21) Hx of cystoscopy (03/25/22) S/P ureteral stent placement Status post colectomy (~1995) Status post vascular bypass Medical History (Last Updated 06/22/22 @ 04:59 by Dang Fernández [facility]) Acute renal failure syndrome Anticoagulated on heparin Arthritis Basal cell carcinoma Bilateral nephrolithiasis Brain concussion Sdujdrd-Xlfle-Zzhup disease Hernia History of malignant neoplasm of colon (05/29/15) History of non-ST elevation myocardial infarction (NSTEMI) History of renal calculi Hypertension, essential Mixed hyperlipidemia Peripheral vascular disease of extremity Sleep apnea in adult Physical Therapy Inpatient Evaluation/Re-Eval M1 PT/OT-IP Prior Functional Status Start: 06/22/22 15:31 Freq: Status: Active Protocol: Document 06/22/22 15:31 (Rec: 06/22/22 15:51 [id number]) Medical Review Prior Functional Status Medical History Reviewed Yes Communication WNL Mobility and Gait Uses FWW at home. STS only from raised surfaces (lift chair). assists with mobility as needed. Has manual w/c. Getting power w/c this coming week from [place]. Activities of Daily Living and IADL's Assist with ADLs via . Prior Functional Level (Other details) Enjoys using recumbent bike for exercise. Social History Household Members spouse Living Arrangements House Number of Floors (Floors) One Floor Number of Stairs To Enter/Railing? level entry Home Environment High Toilet,Walk in Shower Home Equipment Front Wheel Walker,Manual Wheelchair,Raised Toilet Seat w/Armrests,Shower Seat with Backrest,Grab Bars Near Toilet ,Grab Bars In Shower Employment Status Retired M2 PT-IP Current Condition Start: 06/22/22 15:31 Freq: Status: Active Protocol: Document 06/22/22 15:31 BC (Rec: 06/22/22 15:51 [id number]) Physical Therapy Current Condition Current Condition Evaluation Date 06/22/22 Treatment Diagnosis difficulty with ambulation; muscle weakness Onset Date 06/21/22 M3 PT-IP Subjective Start: 06/22/22 15:31 Freq: Status: Active Protocol: Document 06/22/22 15:31 BC (Rec: 06/22/22 15:51 [id number]) Subjective Physical Therapy Visit Type Type Initial Evaluation Visit Start Time 14:30 Visit Stop Time 15:20 Total Visit Minutes 45 Physical Therapy Visit Comments Patient Comments Pt and report they do not want Pt to discharge to a SNF . Patient Goals To figure out where this infection is from and fix it so I can start getting my strength back. Therapy Pain Assessment Pain When Pain Assessed At Rest Pain Present Pain Present Denied Pain M4 PT-IP Mobility and Gait Start: 06/22/22 15:31 Freq: Status: Active Protocol: Document 06/22/22 15:31 BC (Rec: 06/22/22 15:51 [id number]) PT-Bed Mobility Assessment Supine to Sit Supine to Sit Contact Guard Assistance Sit to Supine Sit to Supine Standby Assistance Scooting Scooting to Edge of Bed Independent PT-Transfer Assessment Sit to and From Stand Sit to and from Stand Contact Guard Assistance, Minimal Assistance Equipment Transfer Assistive Device Gait Belt,Front Wheeled Walker Transfers Transfer Destination Bed,Bedside Commode Transfer Technique Stand Step Pivot Transfer Ability Level of Assist Contact Guard Assistance, Minimal Assistance Comments Mobility Comments STS from BSC required min A; STS from bed at raised height (Pt preference similar to home ) he required only CGA. Gait Assessment Gait Gait Assistance Required: Contact Guard Assist,Minimum Assistance Distance (Feet) 15 Assistive Devices Assistive Device Gait Belt,Front Wheeled Walker Gait Deviations General Gait Pattern Antalgic,Decreased Stride Length,Decreased Feet Clearance,Flexed Trunk,Wide Based Gait Factors Limiting Gait Function Factors Limiting Gait Function Decreased Activity Tolerance, Decreased Sensation,Decreased Strength,Poor Balance Comments Gait Comments Antalgic gait pattern due to LLE foot drop, neuromuscular weakness and atrophy from CMT. Uses visual cues of feet for improved sensory awareness due to reduced proprioception Stair Climbing Assessment Comments Stair Climbing Comments NA PT-Balance Assessment Sitting Balance and Reactions Static Sitting Balance Ability Normal Dynamic Sitting Balance Ability Normal Standing Balance and Reactions Static Standing Balance Ability Fair Dynamic Standing Balance Ability Poor Device Used FWW M5 PT-IP Objective Assessments Start: 06/22/22 15:31 Freq: Status: Active Protocol: Document 06/22/22 15:31 (Rec: 06/22/22 15:51 [id number]) Orientation Orientation/Cognition Level of Alertness Alert Orientation Name,Date,Year,Place,Situation Language Function Ability No Deficits Noted Safety Awareness Understands Safety Issues Comments Pt is excellent at reporting his PLOF and modifications he uses for mobility due to CMT. Gross Range of Motion Upper Extremity ROM Assessment Within Functional Limits Lower Extremity ROM Assessment Left Impaired Impairments LLE ankle DF PROM to neutral only Strength Upper Extremity Strength Assessment Within Functional Limits Lower Extremity Strength Assessment Bilaterally Impaired Comments Strength Comments LLE foot drop RLE ankle DF ~2/5 BLE hip/knee strength ~3+ to 4 -/5 Coordination Assessment Gross Coordination Gross Coordination Impaired Assessment Foot Tapping Test Activity Impossible Sensation Assessment Sensation Gross Sensation Right LE Impaired,Left LE Impaired Light Touch Impaired Proprioception (Position) Impaired Sensation Description Numbness Muscle Tone Muscle Tone WNL No Comments Muscle Tone Comments Generally reduced tone in BLE and reduced patellar reflexes. LLE foot drop. M6 PT-IP Treatment Start: 06/22/22 15:31 Freq: Status: Active Protocol: Document 06/22/22 15:31 BC (Rec: 06/22/22 15:51 [id number]) Physical Therapy Treatment Education Brace Education Patient,Caregiver Other Treatments Other Treatment Performed multiple transfer reps of STS and sit<>supine Education on IPR vs SNF vs HH M7 PT-IP Assessment and Plan Start: 06/22/22 15:31 Freq: Status: Active Protocol: Document 06/22/22 15:31 (Rec: 06/22/22 15:51 [id number]) PT Summary Assessment and Plan Potential Rehabilitation Potential Good Status of Condition at Evaluation Evolving Summary Impairments Strength,Balance,Coordination, Sensation,Tone,Bed Mobility, Transfers,Gait,Activity Tolerance Progress Towards Goals Progressing Toward Goals Assessment Summary Pt admitted from home due to febrile, tachycardic and UTI. He has a recent infection with COVID and remains COVID +. Pt 's , Jayla, present and assists with hx reporting. Pt has had several months of various infections of the kidney, heart attacks and COVID infection. He has gone through rehab at [facility] and also at a SNF with a return home ~1 week ago. He was starting his home health services during this first week home. He has a power w/c coming this week from [place] and new AFO from [facility]. Pt's PLOF: Ambulated short household distances with FWW. would assist with manual w/c in/out of bathroom or community distances. He requires tall height for standing using a lift chair or his tall bed only. His new w/ c has a seat lift mechanism to assist with this. Per she was present for all transfers/ambulation using a gait belt and assisting as needed. CLOF: Pt is able to ambulate ~ 10-15' x2 with FWW and min to CGA. He required min A to stand from raised bedside commode and CGA to stand from bed that is elevated to his preference. Gait is antalgic likely related to CMT neuromuscular weakness. Overall he fatigues rapidly with second gait distance resulting in a uncontrolled descent to bed related to fatigue. Vitals at rest: O2 98 % room air; BP 133/66. After gait: O2 96% and BP 188/74. Pt was unable to ambulate all the way to bathroom, used BSC instead and he was able to do self care hygiene/dressing ~50 %. At this time, Pt does not want to consider d/c to SNF or IPR . He only wants to go home from the hospital. His is in support of this decision. Pt is very motivated to stay active and Independent. IPPT will continue to work with him daily to optimize his mobility as his medical status improves. He has all needed DME for home. Goals Bed Mobility Goal Standby Assistance Transfer Goal Standby Assistance Gait Goal Standby Assistance Gait Distance 30 Days to Meet Goals 3 Frequency of Treatment Frequency Of Treatment Once a Day Treatment Plan Physical Therapy Treatment Plan Bed Mobility Training,Transfer Training,Gait Training, Therapeutic Exercise,Balance Retraining,Discharge Planning, Neuromuscular Re-ed, Coordination Retraining Recommendations To Nursing Amount of Assist Needed 1 Person Assist Discharge Recommendations PT Discharge Recommendations Home with 24/7 Assist Available,Home Health,SNF Rehab Other Discharge Recommendations Pt would be a good candidate for SNF but he declines. Home with 24/7 support and HHPT. Transportation Needs at Discharge Private Vehicle
[2022-06-22] MEDS: ATORVASTATIN 20 MG TABLET PO (21:06)
[2022-06-22] MEDS: TRAZODONE 50 MG TABLET PO (21:54)
[2022-06-22] MEDS: ROPINIROLE 1 MG TABLET PO (21:54)
[2022-06-22] MEDS: VANCOMYCIN 1,250 MG/250 ML PIGGYBACK 200 MG IV (21:54)
[2022-06-22] MEDS: ALBUTEROL 2.5 MG/3 ML NEB (ADULT) INH (22:20)
[2022-06-22] MEDS: LORazepam 1 MG TABLET PO (23:58)
[2022-06-23] VITALS (8 sets, daily range): BP systolic 122–178; BP diastolic 59–83; PULSE 69–90; RESP 15–22; TEMP 35.7–36.6; O2SAT 92–98
--- NOTE | 2022-06-23 01:06 | PC.NURSE ---
Patient is alert and oriented. Upon arrival to do assessment patient expressing feelings of anxiety and was noticeably SOB at rest but with O2 sat of 94%. Breath sounds were diminished but CTA. Requested something for anxiety so was medicated with Trazadone which was ineffective so CARI Fernández, informed and order received for Ativan which was given at 2358. Also had RT provide neb Rx after which patient stated that really helped and was no longer appearing to be SOB. HRR w/telemetry reading of SR. Denies nausea. BT present and abdomen is soft. Is using urinal, with assistance, to void and states he does have some dysuria but has improved. Has been able to turn himself in bed but states he gets too SOB with the exertion and declines assistance to reposition. Denies pain. Refusing to wear SCD's so reminded to ankle wave. Remains on COVID precautions. Fall risk score is high and bed alarm is activated.
[2022-06-23 06:00] LABS: Add Manual Diff / Slide Review NO; Basophils Absolute Auto 0 /uL (0-100); Basophils Percent Auto 0.2 % (0-2); Eosinophils Absolute Auto 0 /uL (0-450); Lymphocytes Absolute Auto 500 /uL (1100-4500); Lymphocytes Percent Auto 7.9 % (25-40); Mean Corpuscular HGB Conc 33.3 % (30-36); Mean Corpuscular Hemoglobin 28.5 PG (26-34); Mean Corpuscular Volume 85.5 fL (80-100); Monocytes Absolute Auto 600 /uL (0-900); Monocytes Percent Auto 10.1 % (3-14); Neutrophils Absolute Auto 4900 /uL (1500-7000); Neutrophils Percent Auto 81.8 % (50-75); Platelet Count 242 X10^3/uL (150-400); Red Blood Cell Count 2.21 X10^6/uL (4.5-5.9); Red Cell Distribution Width 15.6 % (11.6-14.8)
[2022-06-23 06:05] LABS: Alanine Aminotransferase 23 IU/L (<50); Albumin 3.1 g/dL (3.5-5.0); Alkaline Phosphatase 72 U/L (38-126); Aspartate Aminotransferase 15 IU/L (17-59); BUN Creatinine Ratio 22.1 (6-22); Bilirubin Total 0.1 mg/dL (0.2-1.3); Blood Urea Nitrogen 27 mg/dL (9-20); Calcium 8.2 mg/dL (8.4-10.2); Carbon Dioxide 18 mmol/L (22-32); Chloride 110 mmol/L (98-107); Estimated Glomerular Filt Rate > 60 mL/min (>60); Globulin 3.1 g/dL (1.7-4.1); Glucose 191 mg/dL (80-110); HEMOLYSIS < 15 (0-50); Magnesium 2.2 mg/dL (1.6-2.3); Potassium 4.4 mmol/L (3.4-5.1); Sodium 139 mmol/L (137-145); Total Protein 6.2 g/dL (6.3-8.2)
[2022-06-23 06:25] LABS: Hemoglobin 6.3 g/dL (13.5-17.5)
[2022-06-23 06:26] LABS: Hematocrit 18.9 % (41-53)
--- NOTE | 2022-06-23 08:11 | PM.PN.1 ---
Subjective Subjective Date Patient Seen: 06/23/22 Interval history: Patient feeling better. Said the ativan he got for anxiety helped immensely. Exam Vital Signs (past 8 hours): - 06/23/22 04:00 Temperature 97.1 F L Pulse Rate 73 Respiratory Rate 15 Blood Pressure 122/66 Pulse Oximetry 95 Oxygen Flow Rate 0 Fraction of Inspired Oxygen 21 SaO2/FiO2 Ratio 461 Oxygen Delivery Method Room Air Oxygen Flow Rate 0 Narrative Exam Narrative: General: Patient is a well-developed, well-nourished male chronically ill-appearing, the resting comfortably in bed, able to converse easily in no distress at this time. HEENT: Normocephalic, atraumatic, extraocular muscles intact, oral pharynx is clear and mucous membranes are moist. Neck is supple and symmetric, trachea is midline, no adenopathy, no thyroid enlargement, nontender, no masses palpated. Negative for JVD Chest: Normal AP diameter and contour without kyphoscoliosis, no nasal flaring, retractions, or tachypneic labored breathing Lungs: Auscultation of all lung booth are clear without adventitious sounds, wheezes, rhonchi, or rales. Cardio: regular rate and rhythm without murmur, rubs, or gallops, no carotid bruit, no cardiac pulsations present. Abdomen: Soft nontender, negative for organomegaly, or masses. Bowel sounds are present in all 4 quadrants without guarding or rebound, no CVA tenderness. Musculoskeletal: Muscle strength and tone are equal within normal limits, no deformity, crepitus, effusions, cyanosis, clubbing or edema present. Full range of motion intact radial and pedal pulses are normal. Skin: Warm dry and intact without rashes, ulcerations or petechiae. Neuro: Alert and orientated x3, moves all extremities, sensation to touch intact, no gross deficits noted of cranial nerves. Psych: Patient has a well-kept appearance, appropriate affect, mental status attitude thought context and judgment are appropriate for age. Objective Labs Result Diagrams: 06/23/22 11:00 06/23/22 05:25 Labs: Laboratory Results - last 24 hr 06/21/22 06/22/22 06/22/22 15:33 10:52 10:52 WBC RBC Hgb 7.6 L Hct 22.9 L MCV MCH MCHC RDW Plt Count Neut % (Auto) Lymph % (Auto) [place] % (Auto) Eos % (Auto) Baso % (Auto) Neut # (Auto) Lymph # (Auto) [place] # (Auto) Eos # (Auto) Baso # (Auto) Sodium Potassium Chloride Carbon Dioxide BUN Creatinine Estimated GFR BUN/Creatinine Ratio Glucose Calcium Magnesium Total Bilirubin AST ALT Alkaline Phosphatase Troponin I < 0.012 Total Protein Albumin Globulin Albumin/Globulin Ratio Blood Type A Positive Antibody Screen Negative Crossmatch See Detail 06/23/22 06/23/22 05:25 05:25 WBC 6.0 RBC 2.21 L Hgb 6.3 L* Hct 18.9 L* MCV 85.5 MCH 28.5 MCHC 33.3 RDW 15.6 H Plt Count 242 Neut % (Auto) 81.8 H Lymph % (Auto) 7.9 L [place] % (Auto) 10.1 Eos % (Auto) 0.0 L Baso % (Auto) 0.2 Neut # (Auto) 4900 Lymph # (Auto) 500 L [place] # (Auto) 600 Eos # (Auto) 0 Baso # (Auto) 0 Sodium 139 Potassium 4.4 Chloride 110 H Carbon Dioxide 18 L BUN 27 H Creatinine 1.22 Estimated GFR > 60 BUN/Creatinine Ratio 22.1 H Glucose 191 H Calcium 8.2 L Magnesium 2.2 Total Bilirubin 0.1 L AST 15 L ALT 23 Alkaline Phosphatase 72 Troponin I Total Protein 6.2 L Albumin 3.1 L Globulin 3.1 Albumin/Globulin Ratio 1.0 Blood Type Antibody Screen Crossmatch [facility] Medical History (Updated 06/22/22 @ 04:59 by JARED Timmons) Acute renal failure syndrome Anticoagulated on heparin Arthritis Basal cell carcinoma Bilateral nephrolithiasis Brain concussion Sjyrien-Osjqi-Vrpbc disease Hernia History of malignant neoplasm of colon (05/29/15) History of non-ST elevation myocardial infarction (NSTEMI) History of renal calculi Hypertension, essential Mixed hyperlipidemia Peripheral vascular disease of extremity Sleep apnea in adult Surgical History History of heart artery stent Hx of cystoscopy (10/16/21) Hx of cystoscopy (12/03/21) Hx of cystoscopy (03/25/22) S/P ureteral stent placement Status post colectomy (~1995) Status post vascular bypass Family History Father Ulcer History of blood clots Mother No known problems Social History marital status: household members: spouse lives independently: Yes occupational status: other Smoking Status: Former smoker alcohol intake: current substance use type: does not use Type(s) of exercise: bicycling frequency: 1-2 times per week Assessment & Plan Assessment & Plan narrative: Shantanu Underwood is a 69-year-old male history of Duvihdx-Qzlpa-Srnyb dz with related chronic muscular deconditioning/weakness, chronic left diaphragmatic paralysis, PVD, HLD, sleep apnea, RLS, colon cancer, DM type 2, hypertension, obstructive bilateral nephrolithiasis with stents, recent NSTEMI, with heart stents x2 (plavix/ASA), gouty arthritis and trophi gout, cardiorenal syndrome, with multiple hospitalizations:[place] 04/17/2022, [facility] 05/27/2022, hospitalized [facility] for COVID 06/10/22 ?Brought in for evaluation of shortness of breath and tachycardia.? The patient has multiple hospitalizations for sepsis septic shock urosepsis and urinary complications places the patient at much higher risk for medical and surgical complications, increased difficulty and complexity of medical and surgical interventions, with an increased chance of poor outcomes such as morbidity and mortality.? The patient's Xvtghlw-Jrpyk-Euppy dz with related chronic muscular deconditioning/weakness, chronic left diaphragmatic paralysis, recent NSTEMI, with heart stents x2, and CHF will impact his oxygenation, impairing his recovery from serious illness.?? 1. Possible pyelonephritis, acute, recurrent, present on admission, improving -presented with fever 103F and UA with >100 WBC's -initiated cefepime and vanco -urine culture growing yeast, unclear if colonization vs infectious -spoke with ID, rec repeating UA as a straight cath for a good sample, and if improved pyuria then to treat for bacterial cause. If significant pyuria still present, consider having pharmacy obtaining flucytasine as nothing else will penetrate urine other than fluconazole. -seems to be improving clinically on abx alone without antifungals, and giving fluconazole with amiodarone is risky. However if absolutely needed can give and perform daily EKG's to monitor QTc 2. COVID 19 infection, asymptomatic, acute, present on admission -patient tested positive on last admit 06/10/2022 -patient is asymptomatic and does meet standards for protocol treatment -isolation per hospital policy, but likely not contagious any longer 4. Chronic diastolic heart failure, chronic, present on admission -Last Echo 05/24/2022:jection fraction is estimated to be 55-60%. ?- hold home furosemide given hypotension 5. PVD, chronic, present on admission ?- continue asa and plavix. 6. Recent NSTEMI(04/17/2022) with coronary artery stent placement x2, essential hypertension, cardiorenal syndrome, acute on chronic present on admission -Troponins negative x2, -due to hypotensive holding oral Lasix -Continue lisinopril, losartan, metoprolol, amiodarone, atenolol -continue patient's Plavix, ASA -trops negative 6. Anemia, likely secondary to chronic illness, acute on chronic, present on admission -patient did experience multiple ground level falls and is on chronic Plavix -initial H&H 8.1/24.2, 9.4/28.4 platelets 148-04/18/2022 10.7/32.6 platelets 134 patient is slightly below lift baseline most likely represents dilutional secondary to sepsis bolus hydration. -Hgb dipped to 6.3, giving 1 unit PRBC -guaiac negative 7. Restless leg syndrome, chronic, present on admission -continue Requip 8. Hyperlipidemia, mixed, chronic, secondary to type 2 diabetes, chronic, present on admission -Last 05/23/2022 A1c 5.0% on admission today, previous A1c 6.6 04/18/2022 -based on current up-to-date guidelines regarding A1c in the elderly patient's A1c allowed up to 7.5 without medication management-to avoid hypoglycemia in the elderly and related risks and complications. - patient follow-up with PCP or Nephrology in 3 months for A1c repeat and re-evaluation. -patient admitted under diabetic protocols, monitor for hypoglycemia/hyperglycemia, low-dose sliding scale in place if needed -continue lisinopril for renal/cardiovascular protective Code status:DNR Surrogate decision maker: Jayla Underwood COVID PCR:Negative DVT/VTE prophylaxis:? Heparin and SCDs Disposition: Likely home in 1-2 days. Time Spent With Patient Critical Care time: I spent a total of [] minutes of critical care time on this patient's care today; this time is exclusive of procedural time. Quality VTE Deep Vein Thrombosis/Pulmonary Embolism Present on Admission: No
[2022-06-23] MEDS: predniSONE 20 MG TABLET 40 MG PO (10:03)
[2022-06-23] MEDS: ENOXAPARIN 40 MG/0.4 ML SYRINGE SUBCUT (10:04)
[2022-06-23] MEDS: ASPIRIN EC 81 MG TABLET PO (10:04)
[2022-06-23] MEDS: CLOPIDOGREL 75 MG TABLET PO (10:04)
[2022-06-23] MEDS: METOPROLOL ER 25 MG TABLET 12.5 MG PO (10:04)
[2022-06-23] MEDS: CEFEPIME 1 GM in SODIUM CHLORIDE 0.9% 100 ML IV ×2 (10:05→21:08)
[2022-06-23] MEDS: SODIUM CHLORIDE 0.9% FLUSH 10 ML IV (10:05)
[2022-06-23] MEDS: PSYLLIUM HUSK 1 PACKET PO (10:06)
[2022-06-23 11:22] LABS: Hematocrit 22.3 % (41-53); Hemoglobin 7.4 g/dL (13.5-17.5)
--- NOTE | 2022-06-23 12:11 | PC.NURSE ---
Stool sample collected this am for guiac occult blood. Result is negative. Dr. Pisano notified of negative result.
--- NOTE | 2022-06-23 13:11 | CM.DPNOTE ---
Discharge Planning Note: Patient has been open to [facility] , notified [facility] by voicemail that he is in hospital. He will need Resumption of Care orders upon discharge. Keena Sage RN/DCP
--- NOTE | 2022-06-23 14:33 | PT.IPTN ---
Current Diagnoses Acute kidney failure, unspecified (06/21/22) Physical Therapy Treatment Note M2 PT-IP Current Condition Start: 06/22/22 15:31 Freq: Status: Active Protocol: Document 06/22/22 15:31 BC (Rec: 06/22/22 15:51 BC [id number]) Physical Therapy Current Condition Current Condition Evaluation Date 06/22/22 Treatment Diagnosis difficulty with ambulation; muscle weakness Onset Date 06/21/22 M3 PT-IP Subjective Start: 06/22/22 15:31 Freq: Status: Active Protocol: Document 06/23/22 14:22 LJ (Rec: 06/23/22 14:33 LJ [id number]) Subjective Physical Therapy Visit Type Type Treatment Note Visit Start Time 14:02 Visit Stop Time 14:21 Total Visit Minutes 19 Physical Therapy Visit Comments Patient Comments Agreeable to ambulate with therapst M4 PT-IP Mobility and Gait Start: 06/22/22 15:31 Freq: Status: Active Protocol: Document 06/23/22 14:22 LJ (Rec: 06/23/22 14:33 LJ [id number]) PT-Bed Mobility Assessment Rolling Type of Rolling Roll to Right Supine to Sit Supine to Sit Independent Sit to Supine Sit to Supine Independent Scooting Scooting to Edge of Bed Independent Scooting Up and Down in Bed Independent PT-Transfer Assessment Sit to and From Stand Sit to and from Stand Standby Assistance,Contact Guard Assistance,Use of Upper Extremities Equipment Transfer Assistive Device Gait Belt,Front Wheeled Walker Transfers Transfer Destination Bed Transfer Ability Level of Assist Standby Assistance,Contact Guard Assistance,Use of Upper Extremities Comments Mobility Comments Pt performs bed mobility independently with HEB elevated. Transfers require bed to be elevated for sit> stand and lowered for stand> sit. Gait Assessment Gait Gait Assistance Required: Contact Guard Assist Distance (Feet) 40 Assistive Devices Assistive Device Gait Belt,Front Wheeled Walker Gait Deviations General Gait Pattern Antalgic,Decreased Stride Length,Decreased Feet Clearance,Flexed Trunk,Wide Based Gait Factors Limiting Gait Function Factors Limiting Gait Function Decreased Activity Tolerance, Decreased Sensation,Decreased Strength,Poor Balance Comments Gait Comments Antalgic gait pattern due to LLE foot drop, neuromuscular weakness and atrophy from CMT. Uses visual cues of feet for improved sensory awareness due to reduced proprioception. Progressed his gait distance going around the end of the bed to the door and back. CGA for safety. Pt had little difficulty with ambulation distance but stated he was fatigued and wanted to return to the bed. M5 PT-IP Objective Assessments Start: 06/22/22 15:31 Freq: Status: Active Protocol: Document 06/22/22 15:31 BC (Rec: 06/22/22 15:51 BC [id number]) Orientation Orientation/Cognition Level of Alertness Alert Orientation Name,Date,Year,Place,Situation Language Function Ability No Deficits Noted Safety Awareness Understands Safety Issues Comments Pt is excellent at reporting his PLOF and modifications he uses for mobility due to CMT. Gross Range of Motion Upper Extremity ROM Assessment Within Functional Limits Lower Extremity ROM Assessment Left Impaired Impairments LLE ankle DF PROM to neutral only Strength Upper Extremity Strength Assessment Within Functional Limits Lower Extremity Strength Assessment Bilaterally Impaired Comments Strength Comments LLE foot drop RLE ankle DF ~2/5 BLE hip/knee strength ~3+ to 4 -/5 Coordination Assessment Gross Coordination Gross Coordination Impaired Assessment Foot Tapping Test Activity Impossible Sensation Assessment Sensation Gross Sensation Right LE Impaired,Left LE Impaired Light Touch Impaired Proprioception (Position) Impaired Sensation Description Numbness Muscle Tone Muscle Tone WNL No Comments Muscle Tone Comments Generally reduced tone in BLE and reduced patellar reflexes. LLE foot drop. M6 PT-IP Treatment Start: 06/22/22 15:31 Freq: Status: Active Protocol: Document 06/23/22 14:22 (Rec: 06/23/22 14:33 [id number]) Physical Therapy Treatment Exercises Exercises Gluteal Sets,Quad Sets,Short Arc Quads M7 PT-IP Assessment and Plan Start: 06/22/22 15:31 Freq: Status: Active Protocol: Document 06/23/22 14:22 (Rec: 06/23/22 14:33 [id number]) PT Summary Assessment and Plan Potential Rehabilitation Potential Good Status of Condition at Evaluation Evolving Summary Impairments Strength,Balance,Coordination, Sensation,Tone,Bed Mobility, Transfers,Gait,Activity Tolerance Progress Towards Goals Progressing Toward Goals Assessment Summary Pt ambulated around foot of bed. Stated that is about as far as a typical distance when ambulating in his home. Pt will benefit from continued therapy during stay in hospital to maintain mobility and strength for DC home if medically able. Goals Bed Mobility Goal Standby Assistance Transfer Goal Standby Assistance Gait Goal Standby Assistance Gait Distance 30 Days to Meet Goals 3 Frequency of Treatment Frequency Of Treatment Once a Day Treatment Plan Physical Therapy Treatment Plan Bed Mobility Training,Transfer Training,Gait Training, Therapeutic Exercise,Balance Retraining,Discharge Planning, Neuromuscular Re-ed, Coordination Retraining Recommendations To Nursing Amount of Assist Needed 1 Person Assist Discharge Recommendations PT Discharge Recommendations Home with 24/7 Assist Available,Home Health,SNF Rehab Other Discharge Recommendations Pt would be a good candidate for SNF but he declines. Home with 24/7 support and HHPT. Transportation Needs at Discharge Private Vehicle
[2022-06-23] MEDS: LORazepam 1 MG TABLET PO ×2 (15:21→22:03)
[2022-06-23 20:49] LABS: Appearance Urine UA SL CLOUDY; Bilirubin Urine UA NEGATIVE (NEGATIVE); Color Urine UA YELLOW; Glucose Urine UA 2+ g/dL (Negative); Ketones Urine UA NEGATIVE (NEGATIVE); Leukocyte Esterase Urine UA TRACE (NEGATIVE); Nitrite Urine UA NEGATIVE (Negative); Occult Blood Urine UA 3+ (Negative); Protein Urine UA 2+ (Negative); Specific Gravity Urine UA 1.015 (1.000-1.035); Urobilinogen Urine UA 0.2 E.U./dL (0.2); pH Urine UA 5.5 (4.5-8.0)
[2022-06-23 20:56] LABS: RBC Urine 30-100/HPF (0-5/HPF)
[2022-06-23 20:57] LABS: Amorphous Sediment Urine 1+; Bacteria Urine Moderate (10-30); Culture Indicated Urine Specimen Cultured; Mucus Urine 1+ (Negative); Squamous Epithelial Cell Urine 1-5 /HPF (0-5/HPF); WBC Urine 10-30/HPF (0-5/HPF)
[2022-06-23] MEDS: ROPINIROLE 1 MG TABLET PO (21:07)
[2022-06-23] MEDS: ATORVASTATIN 20 MG TABLET PO (21:07)
[2022-06-23] MEDS: TRAZODONE 50 MG TABLET PO (21:07)
[2022-06-23] MEDS: VANCOMYCIN 1,250 MG/250 ML PIGGYBACK 200 MG IV (22:04)
[2022-06-24 01:30] VITALS: BP 161/73; PULSE 68; RESP 18; TEMP 36.3; O2SAT 93
[2022-06-24] MEDS: SODIUM CHLORIDE 0.9% FLUSH 10 ML IV ×2 (01:36→08:56)
[2022-06-24 05:42] LABS: Add Manual Diff / Slide Review NO; Basophils Absolute Auto 0 /uL (0-100); Basophils Percent Auto 0.1 % (0-2); Eosinophils Absolute Auto 0 /uL (0-450); Hematocrit 23.9 % (41-53); Lymphocytes Absolute Auto 700 /uL (1100-4500); Lymphocytes Percent Auto 10.7 % (25-40); Mean Corpuscular HGB Conc 33.3 % (30-36); Mean Corpuscular Hemoglobin 28.7 PG (26-34); Mean Corpuscular Volume 86.2 fL (80-100); Monocytes Absolute Auto 500 /uL (0-900); Monocytes Percent Auto 8.1 % (3-14); Neutrophils Absolute Auto 5200 /uL (1500-7000); Neutrophils Percent Auto 81.1 % (50-75); Platelet Count 267 X10^3/uL (150-400); Red Blood Cell Count 2.78 X10^6/uL (4.5-5.9); Red Cell Distribution Width 15.3 % (11.6-14.8); White Blood Cell Count 6.4 X10^3/uL (4.5-11.0)
[2022-06-24 05:48] LABS: Alanine Aminotransferase 39 IU/L (<50); Albumin 3.4 g/dL (3.5-5.0); Alkaline Phosphatase 75 U/L (38-126); Aspartate Aminotransferase 21 IU/L (17-59); Bilirubin Total 0.1 mg/dL (0.2-1.3); Blood Urea Nitrogen 28 mg/dL (9-20); Calcium 8.4 mg/dL (8.4-10.2); Carbon Dioxide 18 mmol/L (22-32); Chloride 109 mmol/L (98-107); Estimated Glomerular Filt Rate > 60 mL/min (>60); Globulin 3.3 g/dL (1.7-4.1); Glucose 209 mg/dL (80-110); HEMOLYSIS < 15 (0-50); Magnesium 1.9 mg/dL (1.6-2.3); Potassium 4.6 mmol/L (3.4-5.1); Sodium 139 mmol/L (137-145); Total Protein 6.7 g/dL (6.3-8.2)
[2022-06-24 05:59] VITALS: BP 156/72; PULSE 72; RESP 18; TEMP 36.1; O2SAT 95
[2022-06-24 08:00] VITALS: BP 189/95; PULSE 87; RESP 22; TEMP 36.3; O2SAT 95
[2022-06-24] MEDS: CEFEPIME 1 GM in SODIUM CHLORIDE 0.9% 100 ML IV (08:54)
[2022-06-24] MEDS: METOPROLOL ER 25 MG TABLET 12.5 MG PO (08:54)
[2022-06-24] MEDS: ASPIRIN EC 81 MG TABLET PO (08:54)
[2022-06-24] MEDS: CLOPIDOGREL 75 MG TABLET PO (08:54)
[2022-06-24] MEDS: predniSONE 20 MG TABLET 40 MG PO (08:55)
[2022-06-24] MEDS: PSYLLIUM HUSK 1 PACKET PO (08:55)
[2022-06-24] MEDS: ENOXAPARIN 40 MG/0.4 ML SYRINGE SUBCUT (08:55)
--- NOTE | 2022-06-24 10:16 | PM.DS.1 ---
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 Patient continues to be positive for COVID-asymptomatic. He has been working with occupational therapy earlier today when he started to have shortness of breath.? His states that his heart rate was elevated.? Patient states he is feeling weak.? Patient denies chest pain, shortness of breath, cough, congestion, fever, body aches, chills, abdominal pain, nausea, vomiting, diarrhea, flank pain, urinary frequency, urgency, dysuria, skin changes, change in bowel habits.? On admit patient is febrile temp 101.1?, continues to have low blood pressure 95/67, HR 93, continues to be tachypneic RR 33, O2 saturation 92% on room air not requiring any oxygenation. Patient does have a small white count 12.2 with a left shift neutrophils 10,700, H&H remained stable 8.1/24.2, patient does present with CALIXTO today BUN 21, bicarb 20, creatinine 1.29, GFR 57, glucose 219, lactate 2.4, procalcitonin 1.42, troponin WNL, urine positive for RBC, WBC, moderate bacteria mucus culture pending, MRSA negative, respiratory panel negative, with the exception of COVID positive. Patient admitted for CALIXTO, with leukocytosis suspected UTI, an asymptomatic COVID. Discharge Providers Provider Date of admission: 06/21/22 18:11 Discharge Date: 06/24/22 Primary care physician: Dmitry Ferguson MD Consults: 06/21/22 20:48 Consult to Occupational Therapy Evaluate & Treat Comment: Physician Instructions: Evaluate and treat Consult to Physical Therapy Evaluate & Treat Comment: Physician Instructions: Evaluate and Treat 06/24/22 15:27 Consult to Home Health Routine Comment: Continue with current disciplines Reason For Exam: Resume Home Health Services Discharge provider: Anirudh Duncan MD Summary Hospital Course Discharge Diagnosis: 1. UTI 2. Candiduria 3. Asymptomatic COVID positive 4. Chronic diastolic heart failuire 5. PVD 6. CAD s/p stents, recent NSTEMI (03/2022) 7. Anemia 8. Restless leg 9. Hyperlipidemia Hospital Course: Mr. Underwood presented to the hospital again with evidence of infection from a urinary source. He was initially febrile and had noted pyuria. He began to improve with IV antibiotics. Ultimately however he did not grow bacteria on urine culture. He has had notable multiple urinalysis with yeast noted. It was initially considered a contaminant. However a third UA was done, this time a straight cath, in an attempt to get as clean a sample as possible and still yeast were noted on the UA. He has had recent complicated history with kidney stones with urinary stent and previous indwelling sequeira. Both of these were previously removed, but it is possible that he has slowly developed a yeast urinary infection. After discussion with ID at [facility], it was decided to treat him with flucytasine for a one week course. Ultimately he was also discharged on oral antibiotics. He has nephrology follow up in 2 days, and he is planning to transition to a urologist in [place]. Exam Vital Signs (past 8 hours): Fraction of Inspired Oxygen 21 SaO2/FiO2 Ratio 461 Oxygen Delivery Method Room Air Oxygen Flow Rate 0 Narrative Exam Narrative: GEN: no acute distress CV: regular rate and rhythm PULM: clear bilaterally Objective Labs Result Diagrams: 06/24/22 05:15 06/24/22 05:15 Labs: Laboratory Results - last 24 hr 06/21/22 15:33 Crossmatch See Detail [facility] Medical History (Updated 06/22/22 @ 04:59 by JARED Timmons) Acute renal failure syndrome Anticoagulated on heparin Arthritis Basal cell carcinoma Bilateral nephrolithiasis Brain concussion Kezpeyf-Geldx-Ypinx disease Hernia History of malignant neoplasm of colon (05/29/15) History of non-ST elevation myocardial infarction (NSTEMI) History of renal calculi Hypertension, essential Mixed hyperlipidemia Peripheral vascular disease of extremity Sleep apnea in adult Surgical History History of heart artery stent Hx of cystoscopy (10/16/21) Hx of cystoscopy (12/03/21) Hx of cystoscopy (03/25/22) S/P ureteral stent placement Status post colectomy (~1995) Status post vascular bypass Family History Father Ulcer History of blood clots Mother No known problems Social History marital status: household members: spouse lives independently: Yes occupational status: other Smoking Status: Former smoker alcohol intake: current substance use type: does not use Type(s) of exercise: bicycling frequency: 1-2 times per week Discharge Plan Discharge Plan Patient Disposition: Home Provider Discharge Comment: Mr. Underwood came in to the hospital with a urinary tract infection. He had bacteria and yeast in the urine and was given a prescription for an antifungal medicine to take for one week, and an antibiotics for a few more days. 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 Discharge orders & Medications Prescriptions: New amoxicillin-pot clavulanate 875-125 mg tablet 1 tab PO BID Qty: 10 0RF flucytosine 250 mg capsule 1,750 mg PO Q6H Qty: 196 0RF Continued clopidogrel [Plavix] 75 mg tablet 75 mg PO DAILY Qty: 90 3RF ProAir HFA 90 mcg/actuation HFA aerosol inhaler 1 puff INHALATION Q6H PRN (Reason: shortness of breath or wheezing) Qty: 8.5 11RF empagliflozin 10 mg tablet 10 mg PO DAILY Qty: 30 0RF atorvastatin 20 mg tablet 20 mg PO BEDTIME Qty: 90 3RF trazodone 50 mg tablet 50 mg PO BEDTIME PRN (Reason: insomnia) Qty: 30 5RF amiodarone 200 mg tablet 200 mg PO DAILY Label Comments: TAKE ONE TABLET BY MOUTH ONE TIME DAILY ropinirole 1 mg Tablet 1 mg PO BEDTIME Qty: 10 0RF polyethylene glycol 3350 17 gram Powder In Packet 17 gm PO DAILY PRN (Reason: Constipation) Qty: 10 0RF aspirin 81 mg Tablet,Delayed Release (Dr/Ec) 81 mg PO DAILY Qty: 10 0RF acetaminophen 325 mg tablet 500 mg PO Q6H PRN (Reason: Fever/Mild Pain (1-3)) metoprolol succinate 25 mg tablet extended release 24 hr 12.5 mg PO DAILY Qty: 30 0RF Label Comments: TAKE ONE TABLET BY MOUTH ONE TIME DAILY Follow up/Referrals: Dmitry Ferguson MD [Primary Care Provider] - Diet/Activity/Treatments Diet: Carb-consistent/Diabetic Visit Report/Discharge Packet Instructions: DI for Urinary Tract Infection (UTI), How to Prevent Falls Discharge Data Primary Care Provider: Dmitry Ferguson Quality VTE Deep Vein Thrombosis/Pulmonary Embolism Present on Admission: No
[2022-06-24 12:00] VITALS: BP 169/93; PULSE 69; RESP 19; O2SAT 96
--- NOTE | 2022-06-24 14:35 | OT.IP.EVAL ---
Current Diagnoses Acute kidney failure, unspecified (06/21/22) Past Medical History (Last Updated 06/22/22 @ 04:59 [facility] Acute renal failure syndrome Anticoagulated on heparin Arthritis Basal cell carcinoma Bilateral nephrolithiasis Brain concussion Brddihh-Svaze-Xutqw disease Hernia History of malignant neoplasm of colon (05/29/15) History of non-ST elevation myocardial infarction (NSTEMI) History of renal calculi Hypertension, essential Mixed hyperlipidemia Peripheral vascular disease of extremity Sleep apnea in adult Surgical History (Last Reviewed 06/22/22 @ 04:59 [facility] History of heart artery stent Hx of cystoscopy (10/16/21) Hx of cystoscopy (12/03/21) Hx of cystoscopy (03/25/22) S/P ureteral stent placement Status post colectomy (~1995) Status post vascular bypass Occupational Therapy Inpatient Evaluation/Re-Eval M1 PT/OT-IP Prior Functional Status Start: 06/22/22 15:31 Freq: Status: Active Protocol: Document 06/24/22 14:33 CGR (Rec: 06/24/22 14:57 CGR [id number]) Medical Review Prior Functional Status Medical History Reviewed Yes Communication WNL Mobility and Gait Uses FWW at home. STS only from raised surfaces (lift chair). assists with mobility as needed. Has manual w/c. Getting power w/c this coming week from [place]. Activities of Daily Living and IADL's Pt is able to perform bathing but needs help in and out of the shower and for drying off and dressing. Pt is able to feed himself. Pt needs assist with toileting PRN. Pt's perform all ADLs assist. Prior Functional Level (Other details) Enjoys using recumbent bike for exercise. Social History Household Members spouse Living Arrangements House Number of Floors (Floors) One Floor Number of Stairs To Enter/Railing? level entry Home Environment High Toilet,Walk in Shower Home Equipment Front Wheel Walker,Manual Wheelchair,Raised Toilet Seat w/Armrests,Shower Seat with Backrest,Grab Bars Near Toilet ,Grab Bars In Shower Employment Status Retired M2 OT-IP Current Condition Start: 06/24/22 14:33 Freq: Status: Active Protocol: Document 06/24/22 14:33 CGR (Rec: 06/24/22 14:57 CGR [id number]) Occupational Therapy Current Condition Current Condition Evaluation Date 06/24/22 Treatment Diagnosis UTI, COVID, recent NSTEMI Diagnosis Onset Date 06/21/22 M3 OT- IP Subjective and Pain Start: 06/24/22 14:33 Freq: Status: Active Protocol: Document 06/24/22 14:33 CGR (Rec: 06/24/22 14:57 CGR [id number]) OT- Subjective Occupational Therapy Visit Type Type Initial Evaluation Visit Start Time 14:08 Visit Stop Time 14:35 Total Visit Minutes 27 Notes Pt is dressed and ready for discharge. OT Pain Assessment Pain When Pain Assessed At Rest Pain Present Pain Present Denied Pain M4 OT- IP ADL's Start: 06/24/22 14:33 Freq: Status: Active Protocol: Document 06/24/22 14:33 CGR (Rec: 06/24/22 14:57 CGR [id number]) OT [id number] Comments OT Self-Feeding Comments not meal time but pt states he feeds IND. OT ADL-Grooming Comments OT Grooming Comments not performed OT ADL-Oral Care Comments Oral Care Comments pt declined, just performed OT ADL-Dressing Comments OT Dressing Comments pt declined, pt already dressed for discharge OT ADL-Toileting Comments OT Toileting Comments PT declined need OT ADL-Bathing Comments OT Bathing Comments not performed M5 OT- IP IADL's Start: 06/24/22 14:33 Freq: Status: Active Protocol: Document 06/24/22 14:33 CGR (Rec: 06/24/22 14:57 CGR [id number]) OT-Instrumental Activities of Daily Living Deficits IADL Deficits Identified No Deficits Home Safety Awareness Awareness of Need for Assistance at Home Good Awareness Ability to Problem Solve Emergency Able to Problem Solve Situations Medication Management Medication Management No Deficits Identified Money Management Money Management No Deficits Identified Meal Preparation Meal Preparation Caregiver Provides Assist Asphalt Dauber Asphalt Dauber Caregiver Provides Assist Driving Driving Caregiver Provides Assist M6 OT- IP Functional Cognition Start: 06/24/22 14:33 Freq: Status: Active Protocol: Document 06/24/22 14:33 CGR (Rec: 06/24/22 14:57 CGR [id number]) Cognitive Factors Limiting Selfcare Function Cognitive Ability Level of Alertness Alert Patient Orientation Name,Age,Birthday,Month,Date, Year,Day of Week,Place, Situation Attention Span Ability Capable of Focused Attention, Capable of Sustained Attention OT- Vision and Hearing OT- Hearing Assessment OT- Hearing Assessment WFL OT- Vision Assessment Visual Acuity Glasses For Reading Visual Attentiveness WFL Occular Pursuits WFL Visual Convergence WFL M7 OT- IP Mobility and Balance Start: 06/24/22 14:33 Freq: Status: Active Protocol: Document 06/24/22 14:33 CGR (Rec: 06/24/22 14:57 CGR [id number]) OT- Bed Mobility Assessment Supine to Sit Supine to Sit Assist Standby Assistance Scooting Scooting to Edge of Bed Standby Assistance OT-Transfer Assessment Sit to and From Stand Sit to and from Stand Standby Assistance Transfers Transfer Ability Standby Assistance Technique Transfer Destination Bed Transfer Technique Stand Step Pivot Devices Transfer Assistive Devices Gait Belt,Front Wheeled Walker Comments Mobility Comments Pt needs the bed to be high for sit to stand but then is able to perform IND. OT- Balance Assessment Sitting Balance and Reactions Static Sitting Balance Ability Good Dynamic Sitting Balance Ability Good M8 OT- IP Objective Assessments Start: 06/24/22 14:33 Freq: Status: Active Protocol: Document 06/24/22 14:33 CGR (Rec: 06/24/22 14:57 CGR [id number]) OT Gross Range of Motion Upper Extremity Range of Motion Assessment Within Functional Limits OT Strength Upper Extremity Strength Assessment Right Impaired Comments Strength Comments R arm is grossly 3+/5, L arm grossly 4/5 OT- Coordination Assessment Upper Extremity Finger to Nose Test Within Functional Limits Finger Tapping Test Within Functional Limits OT-Muscle Tone Assessment Muscle Tone WNL Yes OT Sensation Assessment Edema Edema Absent M9 OT- IP Assessment and Plan Start: 06/24/22 14:33 Freq: Status: Active Protocol: Document 06/24/22 14:33 CGR (Rec: 06/24/22 14:57 CGR [id number]) OT Summary Assessment and Plan Potential Rehabilitation Potential Good Analytic Complexity at Evaluation Moderate Summary OT Impairments Strength,Functional Mobility, Dressing,Toileting,Bathing, Toilet Transfers,Shower Transfers,Activity Tolerance Progress Towards Goals Slow Progress due to Activity Tolerance Assessment Summary Pt presents as a moderate complexity evaluation s/p admit for UTI, COVID, and NSTEMI. Pt appears to be at his baseline except for his activity tolerance which is impacting his ability to perform ADLs and functional mobility. Pt will continue to benefit from OT services. Recommend home with home health. Goals Grooming Goal Standby Assistance Dressing Goal Standby Assistance Toileting Goal Standby Assistance Bathing Goal Standby Assistance Toilet Transfer Goal Standby Assistance,ADA High Toilet,Raised Toilet Seat With Rails Shower Transfer Goal Standby Assistance Days to Meet Goals 10 Frequency of Treatment Frequency Of Treatment Once a Day Treatment Plan OT Treatment Plan ADL Training,Functional Mobility,Patient/Family Education,Discharge Planning Other Treatment Recommendations and Next shower and energy conservation Treatment Focus . Discharge Recommendations OT Discharge Recommendations Home with Assistance Transportation Needs at Discharge Private Vehicle
--- NOTE | 2022-06-24 15:06 | PC.NURSE ---
Assisted by float RN to discharge patient. IV'd dc'd intact. Patient states understanding and has no further questions or concerns at this time. Patient is escorted out via wheelchair with all his belongings.
--- NOTE | 2022-06-24 15:38 | CM.DPC ---
DCP Cont: Patient is discharging home today. Called [place] at [facility] and updated. Sent over resumption orders, pending DC Summary, but faxed over yesterday's progress note and DC paperwork. P: Patient discharged home today with resumption of [facility]. Misty Baird RN/Engineering Programmer
== END 2022-06-24 15:09 | disposition home health service (06) | DRG 727 ==
LOC: ED 17:53 → AC 18:13
PROVIDERS: Nurse Practitioner Family; Admitting Provider Student in an Organized Health Care Education/Training Program; Emergency Provider Emergency Medicine; PCP Student in an Organized Health Care Education/Training Program; Referring Provider Emergency Medicine; Visit Provider Student in an Organized Health Care Education/Training Program
DX: B37.49 Other urogenital candidiasis (principal); U07.1 COVID-19; I50.32 Chronic diastolic (congestive) heart failure; N17.9 Acute kidney failure, unspecified; I13.0 Hypertensive heart and chronic kidney disease with heart failure and stage 1 through stage 4 chronic kidney disease, or unspecified chronic kidney disease; I73.9 Peripheral vascular disease, unspecified; E11.22 Type 2 diabetes mellitus with diabetic chronic kidney disease; N18.9 Chronic kidney disease, unspecified; D63.1 Anemia in chronic kidney disease; G25.81 Restless legs syndrome; E78.2 Mixed hyperlipidemia; I25.10 Atherosclerotic heart disease of native coronary artery without angina pectoris; E11.69 Type 2 diabetes mellitus with other specified complication; I25.2 Old myocardial infarction; Z87.891 Personal history of nicotine dependence; Z95.5 Presence of coronary angioplasty implant and graft; Z66 Do not resuscitate; Z79.84 Long term (current) use of oral hypoglycemic drugs
CPT/HCPCS: 0241U; 36415; 36430; 51798; 71045; 74176; 80053; 81001; 81003; 81015; 83605; 83690; 83735; 84145; 84484; 85014; 85018; 85025; 85610; 85730; 86850; 86900; 86901; 87040; 87077; 87086; 87633; 87797; 93005; 94640; 96365; 97116; 97162; 97166; 97530; 97535; 99284; P9016; A9270; J0692; J0696; J1650; J3475; J7613

== ENCOUNTER → 2022-07-02 15:46 | Outpatient (CLI) | payer MEDICARE, SELFPAY ==
[2022-04-18 03:55] VITALS: RESP 16
[2022-05-25 14:41] VITALS: PULSE 84; RESP 20; O2SAT 99
[2022-06-21 20:54] VITALS: BMI 25.9
[2022-07-02 18:43] LABS: Iron 62 ug/dL (49-181)
[2022-07-02 18:49] LABS: BUN Creatinine Ratio 22.7 (6-22); Blood Urea Nitrogen 22 mg/dL (9-20); Carbon Dioxide 19 mmol/L (22-32); Chloride 107 mmol/L (98-107); Estimated Glomerular Filt Rate > 60 mL/min (>60); Glucose 128 mg/dL (80-110); HEMOLYSIS < 15 (0-50); Phosphorous 3.7 mg/dL (2.3-3.7); Potassium 3.9 mmol/L (3.4-5.1); Sodium 142 mmol/L (137-145)
[2022-07-02 18:53] LABS: Total Iron Binding Capacity 312 ug/dL (261-462)
[2022-07-02 19:11] LABS: Ferritin 34 ng/mL (18-464)
[2022-07-02 19:25] LABS: Hematocrit 30.8 % (41-53); Hemoglobin 10.1 g/dL (13.5-17.5)
[2022-07-02 19:29] LABS: Appearance Urine UA CLEAR; Bilirubin Urine UA NEGATIVE (NEGATIVE); Color Urine UA YELLOW; Glucose Urine UA 2+ g/dL (Negative); Ketones Urine UA NEGATIVE (NEGATIVE); Leukocyte Esterase Urine UA TRACE (NEGATIVE); Nitrite Urine UA NEGATIVE (Negative); Occult Blood Urine UA NEGATIVE (Negative); Protein Urine UA 1+ (Negative); Specific Gravity Urine UA 1.015 (1.000-1.035); Urobilinogen Urine UA 0.2 E.U./dL (0.2)
[2022-07-02 19:47] LABS: Bacteria Urine Few (2-10); RBC Urine 0-1/HPF (0-5/HPF); WBC Urine 30-100/HPF (0-5/HPF)
[2022-07-02 19:48] LABS: Culture Indicated Urine Specimen Cultured
[2022-07-02 19:52] LABS: Creatinine Urine Random 56.3 mg/dL; Protein (Total) Urine Random 51 mg/dL (0-12)
[2022-07-03 07:36] LABS: Parathyroid Hormone Int 72 pg/mL (15-65)
== END ==
PROVIDERS: PCP Student in an Organized Health Care Education/Training Program; Referring Provider Student in an Organized Health Care Education/Training Program; Visit Provider Student in an Organized Health Care Education/Training Program
DX: D50.0 Iron deficiency anemia secondary to blood loss (chronic) (principal); N06.9 Isolated proteinuria with unspecified morphologic lesion; D64.9 Anemia, unspecified; E83.30 Disorder of phosphorus metabolism, unspecified; N25.81 Secondary hyperparathyroidism of renal origin; N30.00 Acute cystitis without hematuria
CPT/HCPCS: 36415; 80048; 81001; 82570; 82728; 83540; 83550; 83970; 84100; 84156; 85014; 85018; 87086

== ENCOUNTER → 2022-08-13 12:59 | Outpatient (CLI) | payer MEDICARE, SELFPAY ==
[2022-04-18 03:55] VITALS: RESP 16
[2022-05-25 14:41] VITALS: PULSE 84; RESP 20; O2SAT 99
[2022-06-21 20:54] VITALS: BMI 25.9
[2022-08-13 13:58] LABS: Appearance Urine UA SL CLOUDY; Bilirubin Urine UA NEGATIVE (NEGATIVE); Color Urine UA YELLOW; Glucose Urine UA 2+ g/dL (Negative); Ketones Urine UA NEGATIVE (NEGATIVE); Leukocyte Esterase Urine UA 2+ (NEGATIVE); Nitrite Urine UA NEGATIVE (Negative); Occult Blood Urine UA 3+ (Negative); Protein Urine UA 2+ (Negative); Specific Gravity Urine UA 1.015 (1.000-1.035); Urobilinogen Urine UA 0.2 E.U./dL (0.2)
[2022-08-13 14:24] LABS: Bacteria Urine Occasional (0-1); RBC Urine 10-30/HPF (0-5/HPF); Squamous Epithelial Cell Urine 1-5 /HPF (0-5/HPF); Transitional Epi Cells Urine 1-5/HPF (0-5/HPF); WBC Urine >100/HPF (0-5/HPF)
[2022-08-13 14:25] LABS: Culture Indicated Urine Specimen Cultured
[2022-08-14 08:28] LABS: Fructosamine 267 umol/L (0-285)
== END ==
PROVIDERS: PCP Student in an Organized Health Care Education/Training Program; Referring Provider Student in an Organized Health Care Education/Training Program; Visit Provider Student in an Organized Health Care Education/Training Program
DX: E11.9 Type 2 diabetes mellitus without complications (principal); R39.9 Unspecified symptoms and signs involving the genitourinary system
CPT/HCPCS: 36415; 81001; 82985; 87086

== ENCOUNTER → 2022-11-11 10:57 | Outpatient (CLI) | payer MEDICARE, SELFPAY ==
[2022-04-18 03:55] VITALS: RESP 16
[2022-05-25 14:41] VITALS: PULSE 84; RESP 20; O2SAT 99
[2022-06-21 20:54] VITALS: BMI 25.9
[2022-11-11 21:01] LABS: Prostate Specific Antigen Scrn 2.19 ng/mL (0.1-4.0)
== END ==
PROVIDERS: PCP Student in an Organized Health Care Education/Training Program; Referring Provider Urology; Visit Provider Urology
DX: R35.1 Nocturia (principal)
CPT/HCPCS: 36415; G0103

== ENCOUNTER → 2023-02-25 10:17 | Outpatient (CLI) | payer MEDICARE, SELFPAY ==
[2022-04-18 03:55] VITALS: RESP 16
[2022-05-25 14:41] VITALS: PULSE 84; RESP 20; O2SAT 99
[2022-06-21 20:54] VITALS: BMI 25.9
[2023-02-25 13:03] LABS: BUN Creatinine Ratio 24.7 (6-22); Blood Urea Nitrogen 23 mg/dL (9-20); Calcium 9.1 mg/dL (8.4-10.2); Carbon Dioxide 24 mmol/L (22-32); Chloride 101 mmol/L (98-107); Estimated Glomerular Filt Rate > 60 mL/min (>60); Glucose 214 mg/dL (80-110); HEMOLYSIS < 15 (0-50); Potassium 4.6 mmol/L (3.4-5.1); Sodium 136 mmol/L (137-145)
[2023-02-25 16:44] LABS: Creatinine Urine Random 22.6 mg/dL
[2023-02-25 17:11] LABS: Microalbumi Creatinin Ratio Ur 1176.9 ug/mg CR (<30); Microalbumin Urine Random 26.6 mg/dL (0-1.6)
[2023-02-27 05:52] LABS: x Labcorp Estim. Avg Glu (eAG) 206 mg/dL (.); x Labcorp Hemoglobin A1c 8.8 % (4.8-5.6)
== END ==
PROVIDERS: PCP Student in an Organized Health Care Education/Training Program; Referring Provider Student in an Organized Health Care Education/Training Program; Visit Provider Student in an Organized Health Care Education/Training Program
DX: I10 Essential (primary) hypertension (principal); E11.9 Type 2 diabetes mellitus without complications
CPT/HCPCS: 36415; 80048; 82043; 82570; 83036

== ENCOUNTER 2023-05-28 09:45 | Inpatient (IN) | payer MEDICARE, SELFPAY ==
[2022-04-18 03:55] VITALS: RESP 16
[2022-05-25 14:41] VITALS: PULSE 84; RESP 20; O2SAT 99
[2022-06-21 20:54] VITALS: BMI 25.9
[2023-05-28] VITALS (87 sets, daily range): BP systolic 66–127; BP diastolic 44–88; PULSE 86–104; RESP 14–49; TEMP 36.3–37.1; O2SAT 87–98; BMI 30.2
--- NOTE | 2023-05-28 10:02 | ED_ITS ---
HPI - Abdominal Pain General Chief Complaint: Abdominal Pain Stated Complaint: V/ T-1 Time Seen by Provider: 05/28/23 09:48 History of Present Illness HPI narrative: 78-year-old male with history of c coronary artery disease, peripheral arterial disease, remote history of colon cancer status post resection presents by private vehicle from home for generalized abdominal pain with nausea and vomiting. Initially thought it was food poisoning but it continued in his vomit turned green this morning. Has a history of bowel obstructions, this is different. No medications taken at home prior to arrival. Related Data Home Medications Medication Instructions Recorded Confirmed acetaminophen 325 mg tablet 500 mg PO Q6H PRN Fever/Mild Pain 06/10/22 05/28/23 (1-3) losartan 25 mg tablet 25 mg PO DAILY 08/12/22 05/28/23 albuterol sulfate 90 mcg/actuation 1 puff inhalation Q6H PRN wheezing 05/28/23 05/28/23 aerosol inhaler empagliflozin 10 mg tablet 10 mg PO DAILY 05/28/23 05/28/23 (Jardiance) metoprolol succinate 25 mg 12.5 - 25 mg PO DAILY 05/28/23 05/28/23 tablet,extended release 24 hr tamsulosin 0.4 mg capsule 0.4 mg PO QPM 05/28/23 05/28/23 trazodone 50 mg tablet 50 mg PO BEDTIME PRN Insomnia 05/28/23 05/28/23 Previous Rx's Medication Instructions Recorded polyethylene glycol 3350 17 gram 17 gm PO DAILY PRN Constipation 05/27/22 oral powder packet #10 ea atorvastatin 20 mg tablet 20 mg PO BEDTIME #90 tabs 06/18/22 blood sugar diagnostic (OneTouch #100 ea 09/30/22 Verio test strips) ropinirole 4 mg tablet 6 mg (1.5 x 4 mg) PO BID restless 01/06/23 legs/leg cramps/CMT #270 tabs clopidogrel 75 mg tablet (Plavix) 75 mg PO DAILY #90 tabs 03/19/23 Allergies Allergy/AdvReac Type Severity Reaction Status Date / Time No Known Drug Allergies Allergy Verified 05/28/23 12:06 Review of Systems Review of Systems Narrative: Negative except as noted above Patient History Medical History (Updated 05/28/23 @ 16:23 by Savanah Jon MD) Environmental allergies Acute renal failure syndrome History of non-ST elevation myocardial infarction (NSTEMI) History of renal calculi Anticoagulated on heparin Brain concussion Bilateral nephrolithiasis Hernia Arthritis Basal cell carcinoma Mixed hyperlipidemia Gcbezcx-Lsxmq-Uytmz disease Sleep apnea in adult Peripheral vascular disease of extremity Hypertension, essential History of malignant neoplasm of colon (05/29/15) Surgical History History of heart artery stent Hx of cystoscopy (03/25/22) Hx of cystoscopy (12/03/21) Hx of cystoscopy (10/16/21) S/P ureteral stent placement Status post vascular bypass Status post colectomy (~1995) Family History Father Ulcer History of blood clots Mother No known problems Social History marital status: household members: spouse lives independently: Yes occupational status: other Smoking Status: Former smoker alcohol intake: current substance use type: does not use Type(s) of exercise: bicycling frequency: 1-2 times per week Smoking Status: Former smoker alcohol intake frequency: a few times a month Substance Use Type: does not use Exam Initial Vital Signs Initial Vital Signs: Vital Signs Temperature 98.8 F 05/28/23 09:50 Pulse Rate 90 05/28/23 09:50 Respiratory Rate 18 05/28/23 09:50 Blood Pressure 100/50 L 05/28/23 09:50 Pulse Oximetry 95 05/28/23 09:50 Oxygen Delivery Method Room Air 05/28/23 09:50 Const: Awake, alert, uncomfortable, nontoxic Eyes: PERRL, EOMI, conjunctiva normal ENT: Atraumatic, dry mucous membranes Cardiac: regular rate, regular rhythm RESP: unlabored, clear bilaterally, no wheezing GI: Soft, moderate distention, generalized tenderness to deep palpation without rebound or guarding MSK: Atraumatic, full range of motion, pulses equal Skin: Warm, Dry, intact, no rashes Neuro: AO x3, CN II-XII grossly intact, moves all extremities Course Course Course Narrative: Uncomfortable but nontoxic patient with nausea and vomiting. Abdomen is distended, patient has extensive prior intra-abdominal surgical history as well as remote history of small-bowel obstructions. Differential includes small- bowel obstruction, pancreatitis, large bowel obstruction. Pain and nausea medications ordered. Orders Ordered: ED Orders 05/28/23 10:01 EKG-12 Lead Stat 05/28/23 10:04 Complete Blood Count AUTO DIFF Stat Comprehensive Metabolic Panel Stat Lactate (Lactic Acid) Stat Lipase Stat Procalcitonin Stat 05/28/23 10:36 CT abdomen pelvis wo con Stat 05/28/23 11:00 Blood Culture Stat 05/28/23 11:46 Urinalysis and Microscopic Stat Urine Culture Stat 05/28/23 11:53 Chest [XR chest 1V] Stat 05/28/23 12:05 Consult to General Surgery Stat Sodium Chloride (Normal Saline 0.9%) 1,000 mls @ 150 mls/hr IV BOLUS ONE Stop: 05/28/23 19:11 Last Admin: 05/28/23 12:41 Dose: 150 mls/hr Documented By: CHRIS Discontinued Medications Fentanyl (Fentanyl 100 Mcg/2 Ml Inj) 100 mcg IV NOW ONE Stop: 05/28/23 12:26 Last Admin: 05/28/23 12:36 Dose: 100 mcg Documented By: CHRIS Sodium Chloride (Normal Saline 0.9%) 1,000 mls @ 1,000 mls/hr IV BOLUS ONE Stop: 05/28/23 11:00 Last Infusion: 05/28/23 10:49 Dose: Infused Documented By: Admin: 05/28/23 10:14 Dose: 1,000 mls/hr Documented By: CHRIS Sodium Chloride (Normal Saline 0.9%) 1,000 mls @ 1,000 mls/hr IV BOLUS ONE Stop: 05/28/23 11:44 Last Infusion: 05/28/23 11:50 Dose: Infused Documented By: Admin: 05/28/23 10:50 Dose: 1,000 mls/hr Documented By: KITTY Sodium Chloride (Normal Saline 0.9%) 1,000 mls @ 1,000 mls/hr IV BOLUS ONE Stop: 05/28/23 11:45 Last Infusion: 05/28/23 12:50 Dose: Infused Documented By: Admin: 05/28/23 11:50 Dose: 1,000 mls/hr Documented By: CHRIS Ceftriaxone Sodium 2,000 mg/ (Sodium Chloride) 100 mls @ 200 mls/hr IV NOW ONE Stop: 05/28/23 11:53 Last Infusion: 05/28/23 12:45 Dose: Infused Documented By: Admin: 05/28/23 12:41 Dose: 200 mls/hr Documented By: CHRIS Lidocaine HCl (Lidocaine 2% (Glydo) 6 Ml Gel) 6 ml TOP NOW ONE Stop: 05/28/23 11:13 Last Admin: 05/28/23 11:14 Dose: 6 ml Documented By: RB Lidocaine HCl (Lidocaine 1% (Pf) 2ml) 2 ml SUBCUT NOW ONE Stop: 05/28/23 11:57 Last Admin: 05/28/23 12:41 Dose: 2 ml Documented By: KITTY Morphine Sulfate (Morphine 4 Mg/Ml Inj) 4 mg IV NOW ONE Stop: 05/28/23 10:02 Last Admin: 05/28/23 10:14 Dose: 4 mg Documented By: CHRIS Ondansetron HCl (Ondansetron 4 Mg/2 Ml Inj) 4 mg IV NOW ONE Stop: 05/28/23 10:02 Last Admin: 05/28/23 10:14 Dose: 4 mg Documented By: CHRIS Reevaluation(s) Reevaluation #1: Laboratory work is significant for elevated creatinine. 2.3 (0.93 on 02/25), hyperkalemia, CO2 38. Patient has been receiving IV fluids, we will add additional fluids as patient's creatinine elevation is likely secondary to dehydration from GI loss. Preliminary review of CT scan appears to show small bowel obstruction. Reevaluation #2: Nursing staff requested Spear placement to monitor output since patient has CALIXTO. After Spear was placed a moderate amount of very cloudy yellow urine was produced. Patient does have history of urinary tract infections. He has no urinary complaints, however due to the contaminated appearance of the urine and empiric dose of Rocephin ordered. Lactic acid 3, fluids ongoing. Reevaluation #3: CT confirms small bowel obstruction with transition point in the right lower quadrant. NG tube placed with copious bilious drainage. Discussed patient's case with Dr. Ocampo of General surgery, who will see the patient in the hospital. Repeat lactic acid 1.1. Blood pressure improving with IV fluids. Admitted for further treatment. Vital Signs Vital signs: Vital Signs - 8 hr 11/01/23 09:50 05/28/23 09:54 05/28/23 09:55 Temperature 98.8 F Pulse Rate 90 102 H 103 H Respiratory Rate 18 17 21 Blood Pressure 100/50 L Pulse Oximetry 95 97 Oxygen Delivery Method Room Air Oxygen Flow Rate 05/28/23 10:00 05/28/23 10:05 05/28/23 10:10 Temperature Pulse Rate 104 H 101 H 101 H Respiratory Rate 40 H 35 H 36 H Blood Pressure Pulse Oximetry Oxygen Delivery Method Oxygen Flow Rate 05/28/23 10:15 05/28/23 10:20 05/28/23 10:25 Temperature Pulse Rate 101 H 96 H 94 H Respiratory Rate 49 H 38 H 34 H Blood Pressure Pulse Oximetry 93 Oxygen Delivery Method Oxygen Flow Rate 05/28/23 10:29 05/28/23 10:29 05/28/23 10:30 Temperature Pulse Rate 94 H Respiratory Rate 31 H Blood Pressure 66/45 L 70/44 L Pulse Oximetry 91 Oxygen Delivery Method Oxygen Flow Rate 05/28/23 10:30 05/28/23 10:35 05/28/23 10:40 Temperature Pulse Rate 93 H 92 H 90 Respiratory Rate 25 H 36 H 26 H Blood Pressure Pulse Oximetry 90 L 90 L 90 L Oxygen Delivery Method Oxygen Flow Rate 05/28/23 10:44 05/28/23 10:44 05/28/23 10:45 Temperature Pulse Rate 92 H Respiratory Rate 32 H Blood Pressure 78/58 L 81/51 L Pulse Oximetry 88 L Oxygen Delivery Method Room Air Oxygen Flow Rate 05/28/23 10:45 05/28/23 10:48 05/28/23 10:48 Temperature Pulse Rate 91 H 88 Respiratory Rate 31 H 43 H Blood Pressure 80/60 L Pulse Oximetry 92 96 Oxygen Delivery Method Nasal Cannula Nasal Cannula Oxygen Flow Rate 2 2 05/28/23 10:50 05/28/23 10:55 05/28/23 11:00 Temperature Pulse Rate 87 88 Respiratory Rate 41 H 29 H Blood Pressure 85/63 L Pulse Oximetry 95 96 Oxygen Delivery Method Nasal Cannula Nasal Cannula Oxygen Flow Rate 2 2 05/28/23 11:00 05/28/23 11:05 05/28/23 11:10 Temperature Pulse Rate 88 89 89 Respiratory Rate 41 H 41 H 25 H Blood Pressure Pulse Oximetry 97 97 97 Oxygen Delivery Method Nasal Cannula Nasal Cannula Nasal Cannula Oxygen Flow Rate 2 2 2 05/28/23 11:15 05/28/23 11:15 05/28/23 11:28 Temperature Pulse Rate 88 88 Respiratory Rate 28 H Blood Pressure 104/64 Pulse Oximetry 98 95 Oxygen Delivery Method Oxygen Flow Rate 05/28/23 11:30 05/28/23 11:30 05/28/23 11:31 Temperature Pulse Rate 91 H Respiratory Rate 31 H Blood Pressure 113/64 114/66 Pulse Oximetry 98 Oxygen Delivery Method Oxygen Flow Rate 05/28/23 11:31 05/28/23 11:35 05/28/23 11:40 Temperature Pulse Rate 90 90 91 H Respiratory Rate 29 H 27 H 43 H Blood Pressure Pulse Oximetry 97 97 94 Oxygen Delivery Method Room Air Nasal Cannula Oxygen Flow Rate 2 05/28/23 11:45 05/28/23 11:46 05/28/23 11:46 Temperature Pulse Rate 90 90 Respiratory Rate 38 H 22 Blood Pressure 97/54 L Pulse Oximetry 94 95 Oxygen Delivery Method Nasal Cannula Oxygen Flow Rate 2 05/28/23 11:50 05/28/23 11:55 05/28/23 12:00 Temperature 97.3 F L Pulse Rate 90 89 92 H Respiratory Rate 24 27 H 32 H Blood Pressure Pulse Oximetry 95 95 96 Oxygen Delivery Method Nasal Cannula Oxygen Flow Rate 2 05/28/23 12:01 05/28/23 12:01 05/28/23 12:05 Temperature 97.3 F L 97.5 F L Pulse Rate 91 H 92 H Respiratory Rate 26 H 26 H Blood Pressure 84/66 L Pulse Oximetry 95 96 Oxygen Delivery Method Oxygen Flow Rate 05/28/23 12:10 05/28/23 12:14 05/28/23 12:14 Temperature 97.5 F L 97.5 F L Pulse Rate 94 H 92 H Respiratory Rate 29 H 33 H Blood Pressure 127/83 Pulse Oximetry 91 97 Oxygen Delivery Method Oxygen Flow Rate 05/28/23 12:15 05/28/23 12:15 05/28/23 12:20 Temperature 97.3 F L 97.3 F L Pulse Rate 93 H 93 H Respiratory Rate 22 18 Blood Pressure 127/88 Pulse Oximetry 96 Oxygen Delivery Method Nasal Cannula Oxygen Flow Rate 2 05/28/23 12:25 05/28/23 12:30 05/28/23 12:30 Temperature 97.3 F L 97.3 F L Pulse Rate 91 H 87 Respiratory Rate 18 19 Blood Pressure 117/76 Pulse Oximetry Oxygen Delivery Method Oxygen Flow Rate 05/28/23 12:35 05/28/23 12:40 05/28/23 12:45 Temperature 97.3 F L 97.3 F L Pulse Rate 86 91 H Respiratory Rate 18 Blood Pressure 126/79 Pulse Oximetry 94 Oxygen Delivery Method Oxygen Flow Rate 05/28/23 12:45 05/28/23 12:50 05/28/23 12:55 Temperature 97.3 F L 97.3 F L 97.3 F L Pulse Rate 91 H 91 H 88 Respiratory Rate 14 14 17 Blood Pressure Pulse Oximetry 91 93 94 Oxygen Delivery Method Oxygen Flow Rate 05/28/23 13:00 05/28/23 13:00 05/28/23 13:05 Temperature 97.3 F L 97.3 F L Pulse Rate 91 H 91 H Respiratory Rate 18 Blood Pressure 125/73 Pulse Oximetry 92 92 Oxygen Delivery Method Oxygen Flow Rate 05/28/23 13:10 05/28/23 13:15 05/28/23 13:15 Temperature 97.3 F L 97.3 F L Pulse Rate 93 H 91 H Respiratory Rate 16 20 Blood Pressure 91/55 L Pulse Oximetry 92 93 Oxygen Delivery Method Oxygen Flow Rate 05/28/23 13:20 05/28/23 13:25 05/28/23 13:30 Temperature 97.3 F L 97.3 F L Pulse Rate 88 89 Respiratory Rate 16 17 Blood Pressure 86/54 L Pulse Oximetry 95 94 Oxygen Delivery Method Oxygen Flow Rate 05/28/23 13:30 05/28/23 13:35 05/28/23 13:36 Temperature 97.3 F L 97.3 F L Pulse Rate 88 91 H Respiratory Rate 22 29 H Blood Pressure 102/72 Pulse Oximetry 94 92 Oxygen Delivery Method Nasal Cannula Nasal Cannula Oxygen Flow Rate 2 2 05/28/23 13:36 05/28/23 13:40 05/28/23 13:45 Temperature 97.3 F L 97.3 F L 97.3 F L Pulse Rate 92 H 92 H 91 H Respiratory Rate 24 27 H 21 Blood Pressure Pulse Oximetry 91 92 93 Oxygen Delivery Method Oxygen Flow Rate 05/28/23 13:45 05/28/23 13:50 Temperature 97.3 F L Pulse Rate 88 Respiratory Rate 18 Blood Pressure 110/73 Pulse Oximetry 94 Oxygen Delivery Method Oxygen Flow Rate MDM - Abdominal Pain Differential Diagnosis Differential diagnosis: Likely abdominal pain, acute appendicitis and small bowel obstruction Lab Data 05/28/23 10:04 05/28/23 13:00 Labs: Lab Results 05/28/23 05/28/23 05/28/23 Range/Units 10:04 11:46 13:00 WBC 9.4 (4.5-11.0) X10^3/uL RBC 5.32 (4.5-5.9) X10^6/uL Hgb 15.6 (13.5-17.5) g/dL Hct 46.8 (41-53) % MCV 88.0 (80-100) fL MCH 29.3 (26-34) PG MCHC 33.3 (30-36) % RDW 15.3 H (11.6-14.8) % Plt Count 229 (150-400) X10^3/uL Neut % (Auto) 70.6 (50-75) % Lymph % (Auto) 18.2 L (25-40) % [place] % (Auto) 10.3 (3-14) % Eos % (Auto) 0.3 L (2-4) % Baso % (Auto) 0.6 (0-2) % Neut # (Auto) 6600 (2375-2906) /uL Lymph # (Auto) 1700 (7969-1317) /uL [place] # (Auto) 1000 H (0-900) /uL Eos # (Auto) 0 (0-450) /uL Baso # (Auto) 100 (0-100) /uL Sodium 135 L 137 (137-145) mmol/L Potassium 5.3 H 4.5 (3.4-5.1) mmol/L Chloride 79 L 92 L (98-107) mmol/L Carbon Dioxide 38 H 36 H (22-32) mmol/L BUN 51 H 49 H (9-20) mg/dL Creatinine 2.30 H 1.81 H (0.66-1.25) mg/dL Estimated GFR 28 L 38 L (>60) mL/min BUN/Creatinine Ratio 22.2 H 27.1 H (6-22) Glucose 275 H 183 H (80-110) mg/dL Lactate 3.0 H (0.7-2.1) mmol/L Calcium 11.2 H 8.9 (8.4-10.2) mg/dL Total Bilirubin 0.6 (0.2-1.3) mg/dL AST 22 (17-59) IU/L ALT 35 (<50) IU/L Alkaline Phosphatase 100 (38-126) U/L NT-Pro-B Natriuret Pep 326 (<450) pg/mL Total Protein 9.0 H (6.3-8.2) g/dL Albumin 5.2 H (3.5-5.0) g/dL Globulin 3.8 (1.7-4.1) g/dL Albumin/Globulin Ratio 1.4 (1.0-2.8) Lipase 132 (23-300) U/L Procalcitonin 0.81 H (<0.5) ng/mL Urine Color Yellow Urine Appearance Clear Urine pH 6.0 (4.5-8.0) Ur Specific [place] 1.020 (1.000-1.035) Urine Protein 3+ H (Negative) Urine Glucose (UA) 1+ H (Negative) g/dL Urine Ketones Negative (NEGATIVE) Urine Occult Blood 3+ H (Negative) Urine Nitrate Negative (Negative) Urine Bilirubin Negative (NEGATIVE) Urine Urobilinogen 0.2 (0.2) E.U./dL Ur Leukocyte Esterase 3+ H (NEGATIVE) Urine RBC 5-10/hpf H (0-5/HPF) Urine WBC >100/hpf H (0-5/HPF) Ur Squamous Epith Cells None seen (0-5/HPF) Urine Bacteria None seen (None) Ur Culture Indicated? Specimen cultured Discharge Plan Departure Patient Disposition: Admitted As Inpatient Clinical Impression: Complete obstruction of small intestine, CALIXTO (acute kidney injury), Urinary tract infection, Nausea & vomiting, Acidosis, lactic Admit Date/Time: 05/28/23 13:53 Admit Provider: Anirudh Duncan
[2023-05-28 10:10] LABS: Add Manual Diff / Slide Review NO; Basophils Absolute Auto 100 /uL (0-100); Basophils Percent Auto 0.6 % (0-2); Eosinophils Absolute Auto 0 /uL (0-450); Eosinophils Percent Auto 0.3 % (2-4); Hematocrit 46.8 % (41-53); Hemoglobin 15.6 g/dL (13.5-17.5); Lymphocytes Absolute Auto 1700 /uL (1100-4500); Lymphocytes Percent Auto 18.2 % (25-40); Mean Corpuscular HGB Conc 33.3 % (30-36); Mean Corpuscular Hemoglobin 29.3 PG (26-34); Monocytes Absolute Auto 1000 /uL (0-900); Monocytes Percent Auto 10.3 % (3-14); Neutrophils Absolute Auto 6600 /uL (1500-7000); Neutrophils Percent Auto 70.6 % (50-75); Platelet Count 229 X10^3/uL (150-400); Red Blood Cell Count 5.32 X10^6/uL (4.5-5.9); Red Cell Distribution Width 15.3 % (11.6-14.8); White Blood Cell Count 9.4 X10^3/uL (4.5-11.0)
[2023-05-28] MEDS: SODIUM CHLORIDE 0.9% 1,000 ML 1000 ML IV ×3 (10:14→11:50)
[2023-05-28] MEDS: MORPHINE 4 MG/ML INJ IV (10:14)
[2023-05-28] MEDS: ONDANSETRON 4 MG/2 ML INJ IV (10:14)
[2023-05-28 10:24] LABS: Alanine Aminotransferase 35 IU/L (<50); Albumin 5.2 g/dL (3.5-5.0); Albumin Globulin Ratio 1.4 (1.0-2.8); Alkaline Phosphatase 100 U/L (38-126); Aspartate Aminotransferase 22 IU/L (17-59); BUN Creatinine Ratio 22.2 (6-22); Bilirubin Total 0.6 mg/dL (0.2-1.3); Blood Urea Nitrogen 51 mg/dL (9-20); Calcium 11.2 mg/dL (8.4-10.2); Chloride 79 mmol/L (98-107); Estimated Glomerular Filt Rate 28 mL/min (>60); Globulin 3.8 g/dL (1.7-4.1); Glucose 275 mg/dL (80-110); HEMOLYSIS < 15 (0-50); Lipase 132 U/L (23-300); Potassium 5.3 mmol/L (3.4-5.1); Sodium 135 mmol/L (137-145)
[2023-05-28 10:30] LABS: Carbon Dioxide 38 mmol/L (22-32)
--- NOTE | 2023-05-28 10:36 | DI.CT.S_ITS ---
PROCEDURE: CT ABDOMEN PELVIS WO CON INDICATIONS: N/V/ABD DISTENSION, HX SBO TECHNIQUE: Noncontrast 5 mm thick sections acquired from the diaphragms to the symphysis. 5 mm coronal and sagittal reformats were then performed. For radiation dose reduction, the following was used: automated exposure control, adjustment of mA and/or kV according to patient size. COMPARISON: [facility], CT, CT ABDOMEN PELVIS WO CON, 05/22/2022, 15:48. FINDINGS: Image quality: Excellent. ABDOMEN: Lung bases: Lung bases are clear. Heart size is normal. Liver: No solid mass. Gallbladder and biliary tree: No gallstones or biliary dilation. Spleen: Normal size. Pancreas: No ductal dilation. Adrenal glands: No adrenal nodules. Kidneys: No hydronephrosis. No solid mass. No complex renal cysts which requires follow-up. Atrophic kidneys. Peritoneum and bowel: Distended loops of small bowel, with a discernible transition point in the right lower quadrant; the region of bowel appears adherent to the abdominal wall, favoring adhesion (series 2, image 65). Fecalized small bowel contents are present. No mesenteric edema. Wall thickness appears within normal limits. Nodes and vessels: No retroperitoneal or mesenteric adenopathy by size criteria. Aorta and inferior vena cava are normal in caliber. Miscellaneous: No ventral hernias. PELVIS: Genitourinary: Urinary bladder wall thickening. Prostatomegaly. Bladder is decompressed. Miscellaneous: No inguinal hernias or adenopathy. Bones: No suspicious bony lesions. No vertebral body compression fractures. IMPRESSION: Distended loops of small bowel, with a discernible transition point in the right lower quadrant; the region of bowel appears adherent to the abdominal wall, favoring adhesion (series 2, image 65). Fecalized small bowel contents are present. No mesenteric edema. Wall thickness appears within normal limits. Findings are most consistent with a partial, high-grade bowel obstruction . No definite ischemia. Dictated by: Caesar Hurt M.D. on 05/28/2023 at 11:39 Approved by: Caesar Hurt M.D. on 05/28/2023 at 11:42
[2023-05-28] MEDS: LIDOCAINE 2% (GLYDO) 6 ML GEL TOP (11:14)
[2023-05-28 11:28] LABS: Procalcitonin 0.81 ng/mL (<0.5)
--- NOTE | 2023-05-28 11:53 | DI.RAD.S_ITS ---
PROCEDURE: XR CHEST 1V INDICATIONS: NG placement TECHNIQUE: One view of the chest was acquired. COMPARISON: [facility], CR, XR CHEST 1V, 06/21/2022, 15:17. [facility], CR, XR CHEST 1V, 06/10/2022, 14:06. FINDINGS: Surgical changes and devices: Nasogastric tube appears well positioned. Lungs and pleura: Lungs are clear. No pleural effusions or pneumothorax. Mild elevation of the left hemidiaphragm. Mediastinum: Mediastinal contours appear normal. Heart size is normal. Bones and chest wall: No suspicious bony lesions. Overlying soft tissues appear unremarkable. IMPRESSION: 1. Nasogastric tube appears well positioned. 2. No acute abnormality. Dictated by: Neil Adams M.D. on 05/28/2023 at 12:29 Approved by: Neil Adams M.D. on 05/28/2023 at 12:32
--- NOTE | 2023-05-28 12:17 | PC.NURSE ---
NGT placement verified by auscultation as well as noted > 300 cc of green bile like fluid noted. x ray pending.
[2023-05-28] MEDS: fentaNYL 100 MCG/2 ML INJ IV (12:36)
[2023-05-28] MEDS: LIDOCAINE 1% (PF) 2ML 2 ML SUBCUT (12:41)
[2023-05-28] MEDS: cefTRIAXone 2,000 MG in SODIUM CHLORIDE 0.9% 100 ML 200 MG IV (12:41)
[2023-05-28] MEDS: SODIUM CHLORIDE 0.9% 1,000 ML 150 ML IV (12:41)
[2023-05-28 13:01] LABS: Appearance Urine UA CLEAR; Bilirubin Urine UA NEGATIVE (NEGATIVE); Color Urine UA YELLOW; Glucose Urine UA 1+ g/dL (Negative); Ketones Urine UA NEGATIVE (NEGATIVE); Leukocyte Esterase Urine UA 3+ (NEGATIVE); Nitrite Urine UA NEGATIVE (Negative); Occult Blood Urine UA 3+ (Negative); Protein Urine UA 3+ (Negative); Urobilinogen Urine UA 0.2 E.U./dL (0.2)
[2023-05-28 13:01] LABS: Reflexed Lactate in 2 Hours Y
[2023-05-28 13:22] LABS: WBC Urine >100/HPF (0-5/HPF)
[2023-05-28 13:25] LABS: Bacteria Urine None Seen; Culture Indicated Urine Specimen Cultured; RBC Urine 5-10/HPF (0-5/HPF); Squamous Epithelial Cell Urine None Seen (0-5/HPF)
[2023-05-28 14:46] LABS: BUN Creatinine Ratio 27.1 (6-22); Blood Urea Nitrogen 49 mg/dL (9-20); Calcium 8.9 mg/dL (8.4-10.2); Carbon Dioxide 36 mmol/L (22-32); Chloride 92 mmol/L (98-107); Estimated Glomerular Filt Rate 38 mL/min (>60); Glucose 183 mg/dL (80-110); HEMOLYSIS 23 (0-50); Potassium 4.5 mmol/L (3.4-5.1); Sodium 137 mmol/L (137-145)
--- NOTE | 2023-05-28 14:51 | PC.NURSE ---
Repeat lactate sent @ 1300. Lab confirmed confirmation. Called @ 1400 and confirmed they had it and it was running. Currently no results.
[2023-05-28 14:54] LABS: NT-proBNP (BNP-Adult 18+) 326 pg/mL (<450)
--- NOTE | 2023-05-28 15:15 | PC.NURSE ---
This RN received a verbal confirmation of 1.1 for is repeat lactate. There is an error that isn't allow the result to post in patient chart at this time. Provider informed of the result.
--- NOTE | 2023-05-28 17:12 | PM.HP.1 ---
History of Present Illness History of Present Illness Date Patient Seen: 05/28/23 Time Patient Seen: 17:00 Chief complaint: V/ T-1 Narrative: Mr. Quach is a 69M with H Xtuvcll-Dyhql-Cscgm, colon cancer s/p resection, Type 2 DM, CAD s/p stents, history of kidney stones and urine infections who presents to the hospital with abdominal pain and vomiting. He states he was in his normal state of health until two days ago when he started having abdominal pain. He was vomiting repeatedly. He had no fevers/chills. He presented to the ED because he was not improving. In the ED workup was done, vitals notable for afebrile, heart rate 90s, blood pressure 100s/50s, sats 95% on room air. Labs reviewed by me and notable for WBC 9.4, hgb 15.6, plts 229. Na 135, BUN 51, creatinine 2.30. Procal 0.81. UA with blood, wbcs, leuk esterase 3+. CT Abdomen with dilated loops of small bowel with transition point in the right lower quadrant. NG tube placed with return of bilious fluid. He felt improved. He was given IV antibiotics and IV fluids. General surgery was consulted. He was admitted for further treatment. [facility] Medical History (Updated 05/28/23 @ 16:23 by Savanah Jon MD) Environmental allergies Acute renal failure syndrome History of non-ST elevation myocardial infarction (NSTEMI) History of renal calculi Anticoagulated on heparin Brain concussion Bilateral nephrolithiasis Hernia Arthritis Basal cell carcinoma Mixed hyperlipidemia Lctyxdu-Yoslc-Hvqnl disease Sleep apnea in adult Peripheral vascular disease of extremity Hypertension, essential History of malignant neoplasm of colon (05/29/15) Surgical History History of heart artery stent Hx of cystoscopy (03/25/22) Hx of cystoscopy (12/03/21) Hx of cystoscopy (10/16/21) S/P ureteral stent placement Status post vascular bypass Status post colectomy (~1995) Family History Father Ulcer History of blood clots Mother No known problems Social History marital status: household members: spouse lives independently: Yes occupational status: other Smoking Status: Former smoker alcohol intake: current substance use type: does not use Type(s) of exercise: bicycling frequency: 1-2 times per week Meds Home Medications and Allergies Home Medications Medication Instructions Recorded Confirmed Type polyethylene glycol 3350 17 gram 17 gm PO DAILY PRN Constipation 05/27/22 05/28/23 Rx oral powder packet #10 ea acetaminophen 325 mg tablet 500 mg PO Q6H PRN Fever/Mild Pain 06/10/22 05/28/23 History (1-3) atorvastatin 20 mg tablet 20 mg PO BEDTIME #90 tabs 06/18/22 05/28/23 Rx losartan 25 mg tablet 25 mg PO DAILY 08/12/22 05/28/23 History blood sugar diagnostic (OneTouch #100 ea 09/30/22 05/28/23 Rx Verio test strips) ropinirole 4 mg tablet 6 mg (1.5 x 4 mg) PO BID restless 01/06/23 05/28/23 Rx legs/leg cramps/CMT #270 tabs clopidogrel 75 mg tablet (Plavix) 75 mg PO DAILY #90 tabs 03/19/23 05/28/23 Rx albuterol sulfate 90 mcg/actuation 1 puff inhalation Q6H PRN wheezing 05/28/23 05/28/23 History aerosol inhaler empagliflozin 10 mg tablet 20 mg PO DAILY 05/28/23 05/28/23 History (Jardiance) metoprolol succinate 25 mg 12.5 - 25 mg PO DAILY 05/28/23 05/28/23 History tablet,extended release 24 hr tamsulosin 0.4 mg capsule 0.4 mg PO QPM 05/28/23 05/28/23 History trazodone 50 mg tablet 50 mg PO BEDTIME PRN Insomnia 05/28/23 05/28/23 History Allergies Allergy/AdvReac Type Severity Reaction Status Date / Time No Known Drug Allergies Allergy Verified 05/28/23 12:06 Review of Systems Review of Systems Narrative: 14 systems reviewed and negative aside from what is noted in HPI Exam Vital Signs (past 8 hours): - 05/28/23 09:50 05/28/23 09:54 05/28/23 09:55 Temperature 98.8 F Pulse Rate 90 102 H 103 H Respiratory Rate 18 17 21 Blood Pressure 100/50 L Pulse Oximetry 95 97 Oxygen Delivery Method Room Air Oxygen Flow Rate 05/28/23 10:00 05/28/23 10:05 05/28/23 10:10 Temperature Pulse Rate 104 H 101 H 101 H Respiratory Rate 40 H 35 H 36 H Blood Pressure Pulse Oximetry Oxygen Delivery Method Oxygen Flow Rate 05/28/23 10:15 05/28/23 10:20 05/28/23 10:25 Temperature Pulse Rate 101 H 96 H 94 H Respiratory Rate 49 H 38 H 34 H Blood Pressure Pulse Oximetry 93 Oxygen Delivery Method Oxygen Flow Rate 05/28/23 10:29 05/28/23 10:29 05/28/23 10:30 Temperature Pulse Rate 94 H Respiratory Rate 31 H Blood Pressure 66/45 L 70/44 L Pulse Oximetry 91 Oxygen Delivery Method Oxygen Flow Rate 05/28/23 10:30 05/28/23 10:35 05/28/23 10:40 Temperature Pulse Rate 93 H 92 H 90 Respiratory Rate 25 H 36 H 26 H Blood Pressure Pulse Oximetry 90 L 90 L 90 L Oxygen Delivery Method Oxygen Flow Rate 05/28/23 10:44 05/28/23 10:44 05/28/23 10:45 Temperature Pulse Rate 92 H Respiratory Rate 32 H Blood Pressure 78/58 L 81/51 L Pulse Oximetry 88 L Oxygen Delivery Method Room Air Oxygen Flow Rate 05/28/23 10:45 05/28/23 10:48 05/28/23 10:48 Temperature Pulse Rate 91 H 88 Respiratory Rate 31 H 43 H Blood Pressure 80/60 L Pulse Oximetry 92 96 Oxygen Delivery Method Nasal Cannula Nasal Cannula Oxygen Flow Rate 2 2 05/28/23 10:50 05/28/23 10:55 05/28/23 11:00 Temperature Pulse Rate 87 88 Respiratory Rate 41 H 29 H Blood Pressure 85/63 L Pulse Oximetry 95 96 Oxygen Delivery Method Nasal Cannula Nasal Cannula Oxygen Flow Rate 2 2 05/28/23 11:00 05/28/23 11:05 05/28/23 11:10 Temperature Pulse Rate 88 89 89 Respiratory Rate 41 H 41 H 25 H Blood Pressure Pulse Oximetry 97 97 97 Oxygen Delivery Method Nasal Cannula Nasal Cannula Nasal Cannula Oxygen Flow Rate 2 2 2 05/28/23 11:15 05/28/23 11:15 05/28/23 11:28 Temperature Pulse Rate 88 88 Respiratory Rate 28 H Blood Pressure 104/64 Pulse Oximetry 98 95 Oxygen Delivery Method Oxygen Flow Rate 05/28/23 11:30 05/28/23 11:30 05/28/23 11:31 Temperature Pulse Rate 91 H Respiratory Rate 31 H Blood Pressure 113/64 114/66 Pulse Oximetry 98 Oxygen Delivery Method Oxygen Flow Rate 05/28/23 11:31 05/28/23 11:35 05/28/23 11:40 Temperature Pulse Rate 90 90 91 H Respiratory Rate 29 H 27 H 43 H Blood Pressure Pulse Oximetry 97 97 94 Oxygen Delivery Method Room Air Nasal Cannula Oxygen Flow Rate 2 05/28/23 11:45 05/28/23 11:46 05/28/23 11:46 Temperature Pulse Rate 90 90 Respiratory Rate 38 H 22 Blood Pressure 97/54 L Pulse Oximetry 94 95 Oxygen Delivery Method Nasal Cannula Oxygen Flow Rate 2 05/28/23 11:50 05/28/23 11:55 05/28/23 12:00 Temperature 97.3 F L Pulse Rate 90 89 92 H Respiratory Rate 24 27 H 32 H Blood Pressure Pulse Oximetry 95 95 96 Oxygen Delivery Method Nasal Cannula Oxygen Flow Rate 2 05/28/23 12:01 05/28/23 12:01 05/28/23 12:05 Temperature 97.3 F L 97.5 F L Pulse Rate 91 H 92 H Respiratory Rate 26 H 26 H Blood Pressure 84/66 L Pulse Oximetry 95 96 Oxygen Delivery Method Oxygen Flow Rate 05/28/23 12:10 05/28/23 12:14 05/28/23 12:14 Temperature 97.5 F L 97.5 F L Pulse Rate 94 H 92 H Respiratory Rate 29 H 33 H Blood Pressure 127/83 Pulse Oximetry 91 97 Oxygen Delivery Method Oxygen Flow Rate 05/28/23 12:15 05/28/23 12:15 05/28/23 12:20 Temperature 97.3 F L 97.3 F L Pulse Rate 93 H 93 H Respiratory Rate 22 18 Blood Pressure 127/88 Pulse Oximetry 96 Oxygen Delivery Method Nasal Cannula Oxygen Flow Rate 2 05/28/23 12:25 05/28/23 12:30 05/28/23 12:30 Temperature 97.3 F L 97.3 F L Pulse Rate 91 H 87 Respiratory Rate 18 19 Blood Pressure 117/76 Pulse Oximetry Oxygen Delivery Method Oxygen Flow Rate 05/28/23 12:35 05/28/23 12:40 05/28/23 12:45 Temperature 97.3 F L 97.3 F L Pulse Rate 86 91 H Respiratory Rate 18 Blood Pressure 126/79 Pulse Oximetry 94 Oxygen Delivery Method Oxygen Flow Rate 05/28/23 12:45 05/28/23 12:50 05/28/23 12:55 Temperature 97.3 F L 97.3 F L 97.3 F L Pulse Rate 91 H 91 H 88 Respiratory Rate 14 14 17 Blood Pressure Pulse Oximetry 91 93 94 Oxygen Delivery Method Oxygen Flow Rate 05/28/23 13:00 05/28/23 13:00 05/28/23 13:05 Temperature 97.3 F L 97.3 F L Pulse Rate 91 H 91 H Respiratory Rate 18 Blood Pressure 125/73 Pulse Oximetry 92 92 Oxygen Delivery Method Oxygen Flow Rate 05/28/23 13:10 05/28/23 13:15 05/28/23 13:15 Temperature 97.3 F L 97.3 F L Pulse Rate 93 H 91 H Respiratory Rate 16 20 Blood Pressure 91/55 L Pulse Oximetry 92 93 Oxygen Delivery Method Oxygen Flow Rate 05/28/23 13:20 05/28/23 13:25 05/28/23 13:30 Temperature 97.3 F L 97.3 F L Pulse Rate 88 89 Respiratory Rate 16 17 Blood Pressure 86/54 L Pulse Oximetry 95 94 Oxygen Delivery Method Oxygen Flow Rate 05/28/23 13:30 05/28/23 13:35 05/28/23 13:36 Temperature 97.3 F L 97.3 F L Pulse Rate 88 91 H Respiratory Rate 22 29 H Blood Pressure 102/72 Pulse Oximetry 94 92 Oxygen Delivery Method Nasal Cannula Nasal Cannula Oxygen Flow Rate 2 2 05/28/23 13:36 05/28/23 13:40 05/28/23 13:45 Temperature 97.3 F L 97.3 F L 97.3 F L Pulse Rate 92 H 92 H 91 H Respiratory Rate 24 27 H 21 Blood Pressure Pulse Oximetry 91 92 93 Oxygen Delivery Method Oxygen Flow Rate 05/28/23 13:45 05/28/23 13:50 05/28/23 13:55 Temperature 97.3 F L 97.3 F L Pulse Rate 88 93 H Respiratory Rate 18 21 Blood Pressure 110/73 Pulse Oximetry 94 92 Oxygen Delivery Method Oxygen Flow Rate 05/28/23 14:00 05/28/23 14:00 05/28/23 14:05 Temperature 97.3 F L 97.5 F L Pulse Rate 93 H 93 H Respiratory Rate 20 18 Blood Pressure 110/74 Pulse Oximetry 91 87 L Oxygen Delivery Method Nasal Cannula Room Air Oxygen Flow Rate 2 05/28/23 14:10 05/28/23 14:15 05/28/23 14:15 Temperature 97.5 F L 97.5 F L Pulse Rate 93 H 93 H Respiratory Rate 27 H 27 H Blood Pressure 96/74 Pulse Oximetry 87 L Oxygen Delivery Method Room Air Oxygen Flow Rate 05/28/23 14:20 05/28/23 14:25 05/28/23 14:30 Temperature 97.5 F L 97.5 F L Pulse Rate 95 H 94 H Respiratory Rate 27 H 22 Blood Pressure 107/71 Pulse Oximetry 95 95 Oxygen Delivery Method Nasal Cannula Oxygen Flow Rate 2 05/28/23 14:30 05/28/23 14:35 05/28/23 14:40 Temperature 97.5 F L 97.5 F L 97.5 F L Pulse Rate 92 H 95 H 96 H Respiratory Rate 17 29 H 21 Blood Pressure Pulse Oximetry 95 95 95 Oxygen Delivery Method Oxygen Flow Rate 05/28/23 14:45 05/28/23 14:45 05/28/23 14:50 Temperature 97.5 F L 97.7 F Pulse Rate 96 H 97 H Respiratory Rate 23 29 H Blood Pressure 104/62 Pulse Oximetry 96 95 Oxygen Delivery Method Oxygen Flow Rate 05/28/23 14:55 05/28/23 15:00 05/28/23 15:01 Temperature 97.7 F 97.7 F Pulse Rate 97 H 97 H Respiratory Rate 27 H 28 H Blood Pressure 107/71 Pulse Oximetry 95 96 Oxygen Delivery Method Oxygen Flow Rate 05/28/23 15:01 05/28/23 15:05 05/28/23 15:10 Temperature 97.7 F 97.7 F 97.7 F Pulse Rate 97 H 96 H 94 H Respiratory Rate 28 H 20 17 Blood Pressure Pulse Oximetry 95 96 95 Oxygen Delivery Method Oxygen Flow Rate 05/28/23 15:15 05/28/23 15:15 05/28/23 15:20 Temperature 97.7 F 97.7 F Pulse Rate 92 H 93 H Respiratory Rate 20 17 Blood Pressure 100/69 Pulse Oximetry 95 95 Oxygen Delivery Method Oxygen Flow Rate 05/28/23 15:25 05/28/23 15:30 05/28/23 15:30 Temperature 97.7 F 97.9 F Pulse Rate 93 H 92 H Respiratory Rate 18 19 Blood Pressure 102/66 Pulse Oximetry 94 94 Oxygen Delivery Method Oxygen Flow Rate 05/28/23 15:35 05/28/23 15:40 05/28/23 15:45 Temperature 97.9 F 97.9 F Pulse Rate 92 H 95 H Respiratory Rate 17 22 Blood Pressure 104/61 Pulse Oximetry 94 91 Oxygen Delivery Method Oxygen Flow Rate 05/28/23 15:45 05/28/23 15:50 05/28/23 15:55 Temperature 98.1 F 98.1 F 98.1 F Pulse Rate 95 H 92 H 92 H Respiratory Rate 27 H 16 17 Blood Pressure Pulse Oximetry 95 96 96 Oxygen Delivery Method Oxygen Flow Rate 05/28/23 16:17 05/28/23 16:17 Temperature 97.7 F Pulse Rate 98 H Respiratory Rate 18 Blood Pressure 112/61 Pulse Oximetry 94 94 Oxygen Delivery Method Nasal Cannula Oxygen Flow Rate 2 2 Oxygen Delivery Method Nasal Cannula Oxygen Flow Rate 2 Narrative Exam Narrative: GEN: no acute distress CV: regular rate and rhythm PULM: clear bilaterally ABD: distended, soft, mild diffuse tenderness, present bowel sounds EXT: warm and well perfused with trace pitting edema NEURO: awake, alert, no focal deficits Objective Labs 05/28/23 10:04 05/28/23 13:00 Labs: Laboratory Results - last 24 hr 05/28/23 05/28/23 05/28/23 10:04 11:46 13:00 WBC 9.4 RBC 5.32 Hgb 15.6 Hct 46.8 MCV 88.0 MCH 29.3 MCHC 33.3 RDW 15.3 H Plt Count 229 Neut % (Auto) 70.6 Lymph % (Auto) 18.2 L [place] % (Auto) 10.3 Eos % (Auto) 0.3 L Baso % (Auto) 0.6 Neut # (Auto) 6600 Lymph # (Auto) 1700 [place] # (Auto) 1000 H Eos # (Auto) 0 Baso # (Auto) 100 Sodium 135 L 137 Potassium 5.3 H 4.5 Chloride 79 L 92 L Carbon Dioxide 38 H 36 H BUN 51 H 49 H Creatinine 2.30 H 1.81 H Estimated GFR 28 L 38 L BUN/Creatinine Ratio 22.2 H 27.1 H Glucose 275 H 183 H Lactate 3.0 H Calcium 11.2 H 8.9 Total Bilirubin 0.6 AST 22 ALT 35 Alkaline Phosphatase 100 NT-Pro-B Natriuret Pep 326 Total Protein 9.0 H Albumin 5.2 H Globulin 3.8 Albumin/Globulin Ratio 1.4 Lipase 132 Procalcitonin 0.81 H Urine Color Yellow Urine Appearance Clear Urine pH 6.0 Ur Specific [place] 1.020 Urine Protein 3+ H Urine Glucose (UA) 1+ H Urine Ketones Negative Urine Occult Blood 3+ H Urine Nitrate Negative Urine Bilirubin Negative Urine Urobilinogen 0.2 Ur Leukocyte Esterase 3+ H Urine RBC 5-10/hpf H Urine WBC >100/hpf H Ur Squamous Epith Cells None seen Urine Bacteria None seen Ur Culture Indicated? Specimen cultured Assessment & Plan Assessment & Plan narrative: 1. Acute small bowel obstruction -possibly secondary to adhesions from previous abdominal surgery -keep NPO -NG tube in place -pain medications ordered -surgery consulted 2. Urinary tract infection -UA positive, follow up cultures -procal elevated -ordered ceftriaxone 3. History of fluid retention and chronic diastolic heart failure -careful with IV fluids, keep 75cc/hr while NPO -already requiring O2 to keep sats above 90% 4. CAD s/p stents -holding meds while NPO 5. Type 2 Diabetes -hold oral meds -check glucose q6 -insulin sliding scale CODE: Full Proxy: Jayla Underwood I have discussed plan and obtained history from the patient. I have discussed plan of care with ED physician and bedside nurse. I have reviewed labs, imaging. Quality MIPS - Meds 'Current medications' to include all prescriptions, [id number]-abtqgxd products, herbals, cannabis/cannabidiol products, and vitamin/mineral/dietary (nutritional) supplements. I have utilized all available resources to obtain, update, or review the patient?s current medications. [If Yes, STOP here]: Yes
--- NOTE | 2023-05-28 17:37 | PC.NURSE ---
Pt to room 215 via stretcher from ER. Pt transferred to bed from stretcher with use of slider board. Pt is awake and oriented x 3. NG to LIS draining green bilious watery fluid, denies nausea at this time. States he has been short of breath since his heart attack one year ago. States he also has CHF. IVF infusing as ordered. Bed alarm on for safety. Tele in place. Pt oriented to room, call light, bed controls, and tv controls. Pt is NPO and agrees to call for assistance as needed. Spouse is at the bedside.
[2023-05-28] MEDS: HYDROMORPHONE 0.5 MG INJ IV (18:36)
[2023-05-28] MEDS: BENZOCAINE/MENTHOL 1 LOZ PKT 1 EACH PO (20:46)
[2023-05-28 21:18] LABS: Lactate (Lactic Acid) 1.1 mmol/L (0.7-2.1)
[2023-05-29] VITALS (12 sets, daily range): BP systolic 94–159; BP diastolic 56–77; PULSE 78–100; RESP 16–18; TEMP 36.1–37.1; O2SAT 92–99
[2023-05-29] MEDS: SODIUM CHLORIDE 0.9% 1,000 ML 75 ML IV ×2 (00:31→12:47)
[2023-05-29] MEDS: ROPINIROLE 1 MG TABLET 6 MG PO ×2 (04:10→08:51)
[2023-05-29 06:44] LABS: Add Manual Diff / Slide Review NO; Basophils Absolute Auto 0 /uL (0-100); Basophils Percent Auto 0.5 % (0-2); Eosinophils Absolute Auto 100 /uL (0-450); Eosinophils Percent Auto 2.7 % (2-4); Hematocrit 36.8 % (41-53); Lymphocytes Absolute Auto 900 /uL (1100-4500); Lymphocytes Percent Auto 20.6 % (25-40); Mean Corpuscular HGB Conc 32.7 % (30-36); Mean Corpuscular Hemoglobin 29.2 PG (26-34); Mean Corpuscular Volume 89.1 fL (80-100); Monocytes Absolute Auto 400 /uL (0-900); Monocytes Percent Auto 9.7 % (3-14); Neutrophils Absolute Auto 3000 /uL (1500-7000); Neutrophils Percent Auto 66.5 % (50-75); Platelet Count 133 X10^3/uL (150-400); Red Blood Cell Count 4.13 X10^6/uL (4.5-5.9); White Blood Cell Count 4.5 X10^3/uL (4.5-11.0)
[2023-05-29 06:58] LABS: BUN Creatinine Ratio 33.3 (6-22); Blood Urea Nitrogen 40 mg/dL (9-20); Calcium 8.4 mg/dL (8.4-10.2); Carbon Dioxide 34 mmol/L (22-32); Chloride 101 mmol/L (98-107); Estimated Glomerular Filt Rate > 60 mL/min (>60); Glucose 144 mg/dL (80-110); HEMOLYSIS < 15 (0-50); Potassium 3.9 mmol/L (3.4-5.1); Sodium 140 mmol/L (137-145)
--- NOTE | 2023-05-29 08:14 | DI.RAD.S_ITS ---
PROCEDURE: XR GASTROGRAFIN CHALLENGE COMPARISON: None. INDICATIONS: small bowel obstruction FINDINGS: Gastrografin was administered through the nasogastric tube and on delayed 4 hour film contrast progressed through the entire bowel to the rectum. IMPRESSION: No evidence of small-bowel obstruction. Gastrografin progressed through the entire bowel at 04:00 hours. Dictated by: Neil Adams M.D. on 05/29/2023 at 14:04 Approved by: Neil Adams M.D. on 05/29/2023 at 14:05
[2023-05-29] MEDS: BENZOCAINE/MENTHOL 1 LOZ PKT 1 EACH PO (08:51)
[2023-05-29] MEDS: cefTRIAXone 2,000 MG in SODIUM CHLORIDE 0.9% 100 ML 200 MG IV (11:36)
--- NOTE | 2023-05-29 14:14 | P.PN_ITS ---
Subjective Subjective Interval history: Patient had BM today. Gastrografin showed no SBO. NG tube out and advancing diet to clears. Exam Vital Signs (past 8 hours): - 05/29/23 08:00 05/29/23 08:00 05/29/23 12:00 Temperature 98.0 F 97.0 F L Pulse Rate 97 H 96 H Respiratory Rate 16 16 Blood Pressure 112/56 L 159/75 H Pulse Oximetry 95 93 99 Oxygen Delivery Method Nasal Cannula Oxygen Flow Rate 2 1.5 0 05/29/23 12:37 Temperature Pulse Rate Respiratory Rate Blood Pressure Pulse Oximetry 95 Oxygen Delivery Method Nasal Cannula Oxygen Flow Rate 1.5 Oxygen Delivery Method Nasal Cannula Oxygen Flow Rate 1.5 Narrative Exam Narrative: GEN: no acute distress CV: regular rate and rhythm PULM: clear bilaterally ABD: nondistended, soft, no tenderness, present bowel sounds EXT: warm and well perfused with trace pitting edema NEURO: awake, alert, no focal deficits Objective Labs 05/29/23 06:32 05/29/23 06:32 Labs: Laboratory Results - last 24 hr 05/28/23 05/29/23 13:00 06:32 WBC 4.5 D RBC 4.13 L Hgb 12.0 L Hct 36.8 L MCV 89.1 MCH 29.2 MCHC 32.7 RDW 15.0 H Plt Count 133 L Neut % (Auto) 66.5 Lymph % (Auto) 20.6 L [place] % (Auto) 9.7 Eos % (Auto) 2.7 Baso % (Auto) 0.5 Neut # (Auto) 3000 Lymph # (Auto) 900 L [place] # (Auto) 400 Eos # (Auto) 100 Baso # (Auto) 0 Sodium 137 140 Potassium 4.5 3.9 Chloride 92 L 101 Carbon Dioxide 36 H 34 H BUN 49 H 40 H Creatinine 1.81 H 1.20 Estimated GFR 38 L > 60 BUN/Creatinine Ratio 27.1 H 33.3 H Glucose 183 H 144 H Lactate 1.1 Calcium 8.9 8.4 NT-Pro-B Natriuret Pep 326 PFSH Medical History (Updated 05/28/23 @ 16:23 by Savanah Jon MD) Environmental allergies Acute renal failure syndrome History of non-ST elevation myocardial infarction (NSTEMI) History of renal calculi Anticoagulated on heparin Brain concussion Bilateral nephrolithiasis Hernia Arthritis Basal cell carcinoma Mixed hyperlipidemia Yfrhybt-Xdpfm-Ksylb disease Sleep apnea in adult Peripheral vascular disease of extremity Hypertension, essential History of malignant neoplasm of colon (05/29/15) Surgical History History of heart artery stent Hx of cystoscopy (03/25/22) Hx of cystoscopy (12/03/21) Hx of cystoscopy (10/16/21) S/P ureteral stent placement Status post vascular bypass Status post colectomy (~1995) Family History Father Ulcer History of blood clots Mother No known problems Social History marital status: household members: spouse lives independently: Yes occupational status: other Smoking Status: Former smoker alcohol intake: current substance use type: does not use Type(s) of exercise: bicycling frequency: 1-2 times per week Assessment & Plan Assessment & Plan narrative: 1. Acute small bowel obstruction, resolved -possibly secondary to adhesions from previous abdominal surgery -gastrografin on 05/29 showed resolved obstruction -NG tube in place, now out -pain medications ordered -surgery consulted -advance diet to clears 2. Urinary tract infection, ruled out -UA positive, follow up cultures -procal elevated -ordered ceftriaxone, can stop 3. History of fluid retention and chronic diastolic heart failure -careful with IV fluids, keep 75cc/hr while NPO -already requiring O2 to keep sats above 90% -now off IVF 4. CAD s/p stents -holding meds while NPO, can restart 5. Type 2 Diabetes -hold oral meds -ACHS glucose checks -insulin sliding scale 6. BPH -continue home flomax CODE: Full Proxy: Jayla Underwood Dispo: Home on 05/30 if able to advance diet.
[2023-05-29] MEDS: METOPROLOL ER 25 MG TABLET PO (14:57)
[2023-05-29] MEDS: TAMSULOSIN 0.4 MG CAPSULE PO (14:57)
[2023-05-29] MEDS: LOSARTAN 25 MG TABLET PO (14:57)
[2023-05-29] MEDS: CLOPIDOGREL 75 MG TABLET PO (14:57)
[2023-05-29] MEDS: INSULIN LISPRO 100 UNIT/ML 3ML VIAL SUBCUT (16:50)
--- NOTE | 2023-05-29 18:25 | PM.CN ---
History of Present Illness Consult details Date Patient Seen: 05/29/23 Time Patient Seen: 18:25 Chief complaint: V/ T-1 Narrative: 78-year-old man with a history of colectomy admitted to the hospital with a small-bowel obstruction. He developed abdominal pain with distention and nausea presented to the [facility] Emergency Department room where CT abdomen pelvis demonstrate a small-bowel obstruction without free air or large amount of fluid. At admission afebrile without leukocytosis. After nasogastric tube placement Gastrografin study performed which demonstrates complete passage of the contrast into the colon. Meds Home Medications and Allergies Home Medications Medication Instructions Recorded Confirmed Type polyethylene glycol 3350 17 gram 17 gm PO DAILY PRN Constipation 05/27/22 05/28/23 Rx oral powder packet #10 ea acetaminophen 325 mg tablet 500 mg PO Q6H PRN Fever/Mild Pain 06/10/22 05/28/23 History (1-3) atorvastatin 20 mg tablet 20 mg PO BEDTIME #90 tabs 06/18/22 05/28/23 Rx losartan 25 mg tablet 25 mg PO DAILY 08/12/22 05/28/23 History blood sugar diagnostic (OneTouch #100 ea 09/30/22 05/28/23 Rx Verio test strips) ropinirole 4 mg tablet 6 mg (1.5 x 4 mg) PO BID restless 01/06/23 05/28/23 Rx legs/leg cramps/CMT #270 tabs clopidogrel 75 mg tablet (Plavix) 75 mg PO DAILY #90 tabs 03/19/23 05/28/23 Rx albuterol sulfate 90 mcg/actuation 1 puff inhalation Q6H PRN wheezing 05/28/23 05/28/23 History aerosol inhaler empagliflozin 10 mg tablet 20 mg PO DAILY 05/28/23 05/28/23 History (Jardiance) metoprolol succinate 25 mg 12.5 - 25 mg PO DAILY 05/28/23 05/28/23 History tablet,extended release 24 hr tamsulosin 0.4 mg capsule 0.4 mg PO QPM 05/28/23 05/28/23 History trazodone 50 mg tablet 50 mg PO BEDTIME PRN Insomnia 05/28/23 05/28/23 History Allergies Allergy/AdvReac Type Severity Reaction Status Date / Time No Known Drug Allergies Allergy Verified 05/28/23 12:06 Exam Vital Signs (past 8 hours): - 05/29/23 12:00 05/29/23 12:37 05/29/23 14:53 Temperature 97.0 F L 97.5 F L Pulse Rate 96 H 100 H Respiratory Rate 16 16 Blood Pressure 159/75 H 116/60 Pulse Oximetry 99 95 98 Oxygen Delivery Method Nasal Cannula Oxygen Flow Rate 0 1.5 1.5 05/29/23 14:57 05/29/23 14:57 05/29/23 16:00 Temperature Pulse Rate 100 H 100 H Respiratory Rate Blood Pressure 116/60 116/60 Pulse Oximetry 98 Oxygen Delivery Method Nasal Cannula Oxygen Flow Rate 1.5 05/29/23 16:58 Temperature Pulse Rate 89 Respiratory Rate Blood Pressure 119/63 Pulse Oximetry Oxygen Delivery Method Oxygen Flow Rate Oxygen Delivery Method Nasal Cannula Oxygen Flow Rate 1.5 Narrative Exam Narrative: General elderly man alert oriented no acute distress Chest nonlabored respiration Abdomen distended no peritonitis Objective Labs 05/29/23 06:32 05/29/23 06:32 Labs: Laboratory Results - last 24 hr 05/28/23 05/29/23 13:00 06:32 WBC 4.5 D RBC 4.13 L Hgb 12.0 L Hct 36.8 L MCV 89.1 MCH 29.2 MCHC 32.7 RDW 15.0 H Plt Count 133 L Neut % (Auto) 66.5 Lymph % (Auto) 20.6 L [place] % (Auto) 9.7 Eos % (Auto) 2.7 Baso % (Auto) 0.5 Neut # (Auto) 3000 Lymph # (Auto) 900 L [place] # (Auto) 400 Eos # (Auto) 100 Baso # (Auto) 0 Sodium 140 Potassium 3.9 Chloride 101 Carbon Dioxide 34 H BUN 40 H Creatinine 1.20 Estimated GFR > 60 BUN/Creatinine Ratio 33.3 H Glucose 144 H Lactate 1.1 Calcium 8.4 PFSH Medical History Environmental allergies Acute renal failure syndrome History of non-ST elevation myocardial infarction (NSTEMI) History of renal calculi Anticoagulated on heparin Brain concussion Bilateral nephrolithiasis Hernia Arthritis Basal cell carcinoma Mixed hyperlipidemia Xtlhzgo-Vwifd-Lutbc disease Sleep apnea in adult Peripheral vascular disease of extremity Hypertension, essential History of malignant neoplasm of colon (05/29/15) Surgical History History of heart artery stent Hx of cystoscopy (03/25/22) Hx of cystoscopy (12/03/21) Hx of cystoscopy (10/16/21) S/P ureteral stent placement Status post vascular bypass Status post colectomy (~1995) Family History Father Ulcer History of blood clots Mother No known problems Social History marital status: household members: spouse lives independently: Yes occupational status: other Tobacco & Substance Use Smoking Status: Former smoker alcohol intake: current substance use type: does not use Diet and Exercise Type(s) of exercise: bicycling frequency: 1-2 times per week Assessment & Plan Assessment and plan (1) Complete obstruction of small intestine: Status: Acute Plan 78-year-old male history of abdominal surgery admitted to the hospital with a small-bowel obstruction. CT abdomen pelvis reviewed demonstrates an obstruction with no evidence of free air or significant free fluid. No signs of peritonitis on exam. Gastrografin study performed and reviewed by myself which demonstrates passage of the contrast into the colon within a 4 hour yann. Nasogastric tube was removed and he was started on a diet which he is tolerating. General surgery will sign off at this point please contact for with any questions.
[2023-05-29] MEDS: ATORVASTATIN 20 MG TABLET PO (20:32)
[2023-05-29] MEDS: TRAZODONE 50 MG TABLET PO (20:57)
[2023-05-30] VITALS (9 sets, daily range): BP systolic 109–136; BP diastolic 60–80; PULSE 73–85; RESP 16–19; TEMP 36–37.1; O2SAT 93–98
[2023-05-30] MEDS: ROPINIROLE 1 MG TABLET 6 MG PO ×2 (03:36→15:11)
[2023-05-30] MEDS: INSULIN LISPRO 100 UNIT/ML 3ML VIAL SUBCUT (09:25)
[2023-05-30] MEDS: CLOPIDOGREL 75 MG TABLET PO (09:33)
[2023-05-30] MEDS: TAMSULOSIN 0.4 MG CAPSULE PO (09:33)
[2023-05-30] MEDS: LOSARTAN 25 MG TABLET PO (09:33)
[2023-05-30] MEDS: METOPROLOL ER 25 MG TABLET PO (09:33)
--- NOTE | 2023-05-30 11:06 | P.DS_ITS ---
History of Present Illness History of Present Illness Date Patient Seen: 05/28/23 Time Patient Seen: 17:00 Chief complaint: V/ T-1 Narrative: Mr. Quach is a 69M with H Lmjcqen-Dnsgi-Jbuzv, colon cancer s/p resection, Type 2 DM, CAD s/p stents, history of kidney stones and urine infections who presents to the hospital with abdominal pain and vomiting. He states he was in his normal state of health until two days ago when he started having abdominal pain. He was vomiting repeatedly. He had no fevers/chills. He presented to the ED because he was not improving. In the ED workup was done, vitals notable for afebrile, heart rate 90s, blood pressure 100s/50s, sats 95% on room air. Labs reviewed by me and notable for WBC 9.4, hgb 15.6, plts 229. Na 135, BUN 51, creatinine 2.30. Procal 0.81. UA with blood, wbcs, leuk esterase 3+. CT Abdomen with dilated loops of small bowel with transition point in the right lower quadrant. NG tube placed with return of bilious fluid. He felt improved. He was given IV antibiotics and IV fluids. General surgery was consulted. He was admitted for further treatment. Discharge Providers Provider Date of admission: 05/28/23 13:53 Discharge Date: 05/30/23 Primary care physician: Dmitry Ferguson MD Consults: 05/28/23 12:05 Consult to General Surgery Stat Comment: Consulting Provider: Natalie Ocampo Reason for consultation: SBO Has provider been notified: Yes Discharge provider: Alfonso Pisano DO Summary Hospital Course Discharge Diagnosis: 1. Acute small bowel obstruction, resolved -possibly secondary to adhesions from previous abdominal surgery -gastrografin on 05/29 showed resolved obstruction -NG tube in place, now out -pain medications ordered -surgery consulted -advanced diet to regular and tolerating well 2. Urinary tract infection, ruled out -UA positive, follow up cultures -procal elevated -ordered ceftriaxone, can stop 3. History of fluid retention and chronic diastolic heart failure -careful with IV fluids, keep 75cc/hr while NPO -already requiring O2 to keep sats above 90% -now off IVF 4. CAD s/p stents -holding meds while NPO, can restart 5. Type 2 Diabetes -hold oral meds -ACHS glucose checks -insulin sliding scale 6. BPH -continue home flomax Hospital Course: Admitted for SBO which resolved quickly with NG and passed gastrografin study. NG taken out and advanced diet. Began having BM's. Discharged home to f/up with new PCP as he will attempt to call and get an appt with Dr. Ben Segura. Wanted home O2 but didn't not qualify on our test due to no hypoxia. Exam Vital Signs (past 8 hours): - 05/30/23 04:00 05/30/23 07:00 05/30/23 08:00 Temperature 98.8 F 96.9 F L Pulse Rate 85 73 Respiratory Rate 16 19 Blood Pressure 136/72 122/80 Pulse Oximetry 96 96 97 Oxygen Delivery Method Nasal Cannula Oxygen Flow Rate 1.5 1.5 0 05/30/23 08:00 05/30/23 09:01 05/30/23 09:33 Temperature Pulse Rate 73 Respiratory Rate Blood Pressure 122/80 Pulse Oximetry 94 93 Oxygen Delivery Method Room Air Room Air Oxygen Flow Rate 0 05/30/23 09:33 Temperature Pulse Rate 73 Respiratory Rate Blood Pressure 122/80 Pulse Oximetry Oxygen Delivery Method Oxygen Flow Rate Oxygen Delivery Method Room Air Oxygen Flow Rate 0 Narrative Exam Narrative: General elderly man alert oriented no acute distress Chest nonlabored respiration Abdomen distended no peritonitis Objective Labs 05/29/23 06:32 05/29/23 06:32 [facility] Medical History Environmental allergies Acute renal failure syndrome History of non-ST elevation myocardial infarction (NSTEMI) History of renal calculi Anticoagulated on heparin Brain concussion Bilateral nephrolithiasis Hernia Arthritis Basal cell carcinoma Mixed hyperlipidemia Suzxdyc-Fduar-Snltd disease Sleep apnea in adult Peripheral vascular disease of extremity Hypertension, essential History of malignant neoplasm of colon (05/29/15) Surgical History History of heart artery stent Hx of cystoscopy (03/25/22) Hx of cystoscopy (12/03/21) Hx of cystoscopy (10/16/21) S/P ureteral stent placement Status post vascular bypass Status post colectomy (~1995) Family History Father Ulcer History of blood clots Mother No known problems Social History marital status: household members: spouse lives independently: Yes occupational status: other Smoking Status: Former smoker alcohol intake: current substance use type: does not use Type(s) of exercise: bicycling frequency: 1-2 times per week Discharge Plan Discharge Plan Patient Disposition: Home Provider Discharge Comment: You had a small bowel obstruction which resolved pretty quickly on it's own. Try to stay regular with laxatives having a BM at least daily to every other day. This will help prevent repeat obstructions. Discharge orders & Medications Prescriptions: Continued losartan 25 mg tablet 25 mg PO DAILY (DME) OneTouch Verio test strips Strip See Rx Instructions .ROUTE .MEDSUPPLY Qty: 100 0RF Rx Instructions: Use to test blood glucose ONCE DAILY clopidogrel [Plavix] 75 mg tablet 75 mg PO DAILY Qty: 90 1RF atorvastatin 20 mg tablet 20 mg PO BEDTIME Qty: 90 3RF ropinirole 4 mg tablet 6 mg PO BID Qty: 270 1RF Rx Instructions: Increasing from current reported 4mg twice daily to 6mg twice daily. Please don't increase further without PCP involvement. Max 18mg daily. polyethylene glycol 3350 17 gram Powder In Packet 17 gm PO DAILY PRN (Reason: Constipation) Qty: 10 0RF tamsulosin 0.4 mg capsule 0.4 mg PO QPM trazodone 50 mg tablet 50 mg PO BEDTIME PRN (Reason: Insomnia) Rx Instructions: TAKE ONE TABLET BY MOUTH NIGHTLY AT BEDTIME NEEDED FOR INSOMNIA albuterol sulfate 90 mcg/actuation HFA aerosol inhaler 1 puff INHALATION Q6H PRN (Reason: wheezing) Jardiance 10 mg tablet 20 mg PO DAILY metoprolol succinate 25 mg tablet extended release 24 hr 12.5 - 25 mg PO DAILY Patient Comments: TAKE 1/2 to ONE TABLET BY MOUTH ONE TIME DAILY acetaminophen 325 mg tablet 500 mg PO Q6H PRN (Reason: Fever/Mild Pain (1-3)) Follow up/Referrals: Dmitry Ferguson MD [Primary Care Provider] - Ben Segura MD [Physician] - 2 Weeks (needs urology referral, diabetes management and wants home O2) Visit Report/Discharge Packet Stand Alone Forms: Patient Portal/API, Stroke Signs & Symptoms Discharge Data Primary Care Provider: Dmitry Ferguson
--- NOTE | 2023-05-30 15:21 | PT.IIE ---
Current Diagnoses Intestinal adhesions [bands], unspecified as to partial versus complete obstruction (05/28/23) Complete intestinal obstruction, unspecified as to cause (05/28/23) Surgical History (Last Reviewed 05/29/23 @ 18:27 by Robert Thayer MD) History of heart artery stent Hx of cystoscopy (10/16/21) Hx of cystoscopy (12/03/21) Hx of cystoscopy (03/25/22) S/P ureteral stent placement Status post colectomy (~1995) Status post vascular bypass Medical History (Last Reviewed 05/29/23 @ 18:27 by Robert Thayer MD) Acute renal failure syndrome Anticoagulated on heparin Arthritis Basal cell carcinoma Bilateral nephrolithiasis Brain concussion Gkgtcmt-Bpegw-Hbtos disease Environmental allergies Hernia History of malignant neoplasm of colon (05/29/15) History of non-ST elevation myocardial infarction (NSTEMI) History of renal calculi Hypertension, essential Mixed hyperlipidemia Peripheral vascular disease of extremity Sleep apnea in adult Physical Therapy Inpatient Evaluation/Re-Eval M1 PT/OT-IP Prior Functional Status Start: 05/30/23 16:41 Freq: NEEDED Status: Active Protocol: Document 05/30/23 15:21 AB (Rec: 05/30/23 16:57 AB [id number]) Medical Review Prior Functional Status Medical History Reviewed Yes Communication able to make needs known Mobility and Gait pt stated that he is modified independent with most of his mobility but occasionally spouse provides assistance as needed. pt stated that he usually uses his power w/c but able to complete transfers with set up assist from spouse using a slide board w/c<>bed but occasionally completes a pivot transfer without AD. pt stated that he ambulates using a FWW ~ 50 -60 steps only as an exercise/activity and does his nustep but spends most of his time on his power w/c. spouse assists pt with his shower needs. pt stated that his house is set up wherein everything is higher so that it is easier for him to get up . Social History Household Members spouse Living Arrangements House Number of Floors (Floors) One Floor Number of Stairs To Enter/Railing? no steps to enter Home Environment High Toilet,Walk in Shower,Tub /Shower Home Equipment Front Wheel Walker,Manual Wheelchair,Power Wheelchair/ Scooter,Raised Toilet Seat w/ Armrests,Tub Transfer Bench, Shower Seat with Backrest,Lift Recliner,Grab Bars Near Toilet,Grab Bars In Shower M2 PT-IP Current Condition Start: 05/30/23 16:41 Freq: NEEDED Status: Active Protocol: Document 05/30/23 15:21 AB (Rec: 05/30/23 16:57 AB [id number]) Physical Therapy Current Condition Current Condition Evaluation Date 05/30/23 Treatment Diagnosis SBO; generalized weakness Onset Date 05/28/23 M3 PT-IP Subjective Start: 05/30/23 16:41 Freq: NEEDED Status: Active Protocol: Document 05/30/23 15:21 AB (Rec: 05/30/23 16:57 AB [id number]) Subjective Physical Therapy Visit Type Type Initial Evaluation Visit Start Time 15:21 Visit Stop Time 16:00 Total Visit Minutes 39 Number of DESULFURIZER MACHINE Visits 0 Physical Therapy Visit Comments Patient Comments wants to go home M4 PT-IP Mobility and Gait Start: 05/30/23 16:41 Freq: NEEDED Status: Active Protocol: Document 05/30/23 15:21 AB (Rec: 05/30/23 16:57 AB [id number]) PT-Bed Mobility Assessment Supine to Sit Supine to Sit Standby Assistance Sit to Supine Sit to Supine Standby Assistance,Bedrails PT-Transfer Assessment Sit to and From Stand Sit to and from Stand Contact Guard Assistance, Minimal Assistance,1 Person Assistance,Use of Upper Extremities Equipment Transfer Assistive Device Gait Belt,Front Wheeled Walker Orthotic/Prosthetic Devices or Brace: No Transfers Transfer Destination Bed,Chair Transfer Technique Stand Step Pivot Transfer Ability Level of Assist Contact Guard Assistance,1 Person Assistance,Use of Upper Extremities Comments Mobility Comments pt sitting on the chair. agreeable to do PT. BP: 95/ 56. pt completed sit to stand from the chair min A with pt doing some rocking to assist with standing and step transfer to the bed using FWW CGA. pt stated that everything is set up higher at home for it to be easier for him to get up. pt completed sit<>supine SBA. able to sit on EOB SBA. able to get up from an elevate bed CGA using FWW and transfer back to the w /c CGA. educated pt with sit< >stand technique. completed sit to stand again from the chair min A. pt stated that he is getting tired. positioned pt back to the chair. call light and table placed within reach. spouse in room and stated that she can assist pt at home. pt agreed to have HHPT. informed nurse and hospitalist . Gait Assessment Comments Gait Comments able to take steps during transfers PT-Balance Assessment Sitting Balance and Reactions Static Sitting Balance Ability Good Dynamic Sitting Balance Ability Good Standing Balance and Reactions Static Standing Balance Ability Fair Dynamic Standing Balance Ability Fair Device Used FWW M5 PT-IP Objective Assessments Start: 05/30/23 16:41 Freq: NEEDED Status: Active Protocol: Document 05/30/23 15:21 AB (Rec: 05/30/23 16:57 AB [id number]) Orientation Orientation/Cognition Level of Alertness Alert Orientation Name,Place,Situation Language Function Ability No Deficits Noted Safety Awareness Decreased Safety Awareness Memory Description No Deficits Noted Gross Range of Motion Lower Extremity ROM Impairments bilateral ankle tightness into DF Strength Lower Extremity Strength Assessment Bilaterally Impaired Comments Strength Comments RLE: 4-/5 LLE: 3+/5 bilateral foot drop; pt stated that he has AFO on LLE but has not been using it since he does not walk much M6 PT-IP Treatment Start: 05/30/23 16:41 Freq: NEEDED Status: Active Protocol: Document 05/30/23 15:21 AB (Rec: 05/30/23 16:57 AB [id number]) Physical Therapy Treatment Education Education Provided Safety M7 PT-IP Assessment and Plan Start: 05/30/23 16:41 Freq: NEEDED Status: Active Protocol: Document 05/30/23 15:21 AB (Rec: 05/30/23 16:57 AB [id number]) PT Summary Assessment and Plan Potential Rehabilitation Potential Fair Status of Condition at Evaluation Evolving Summary Impairments Pain,ROM,Strength,Balance, Coordination,Sensation,Tone, Cognition,Bed Mobility, Transfers,Gait,Activity Tolerance Assessment Summary pt is a 78 y/o M who presented to the ED for abdominal pain and vomiting. Pt admitted for SBO and now resolved. pt with limited mobility prior to admission and is mostly w/c bound but able to ambulate ~ 50 steps per pt using FWW and only ambulates as an exercise/ activity. pt has Charcot-Yolande -tooth affecting mobility and indepndence. pt plans to go home and spouse to assist him. Home is set up for pt to be able to function and mobilize easier with higher bed and chair to get up from. pt currenly requiring min A for transfers using a FWW. spouse to assist pt and has been assisting pt at home for transfers using a slide board. pt will benefit from HHPT to improve overall strength and activity tolerance. Goals Bed Mobility Goal Independent Transfer Goal Independent Gait Goal Standby Assistance,Front Wheel Walker Gait Distance 50 Days to Meet Goals 5 Frequency of Treatment Frequency Of Treatment Once a Day Treatment Plan Physical Therapy Treatment Plan Bed Mobility Training,Transfer Training,Gait Training, Therapeutic Exercise,Balance Retraining,Discharge Planning, Hot or Cold Pack,Neuromuscular Re-ed,Coordination Retraining ,Manual Therapy Recommendations To Nursing Amount of Assist Needed 1 Person Assist Discharge Recommendations PT Discharge Recommendations Home with 17/02 Assist Available,Home Health Transportation Needs at Discharge Private Vehicle
--- NOTE | 2023-05-30 15:59 | CM.DANOTE ---
Patient is a 78 yo male who was admitted on 05/28/23 for Vomiting. Pt has [facility] for insurance and his PCP is Dr. Dmitry Ferguson. EMR was reviewed. Per MD, pt with hx of DM and nerve genetic do and admitted for SBO with NGT placement and UTI and on 2LO2. Per Surgeon, pt able to have bm and NGT removed and advancing his diet and tolerating and stable for d/c home today. Per PT, recommending home with HH. SW met bedside with pt and spouse and explained role and they confirm they live in [place] and pt has a w/c that he uses typically and they have DME in the home but pt able to complete his ADLs mostly independent. Spouse is active and assists as needed and provides transportation. Both in agreement of HH and they used [facility] last year and would like referral to [facility] again and only want PT at this time. Spouse ready to transport pt home this evening and pt all dressed to leave. SW made new referral to [facility] and faxed F2F and HH orders and they will call pt after discharge. SW updated RN and will provide d/c instructions soon. Plan: Patient to d/c home today via spouse POV and new [facility] referral made. HOWIE Solorzano Discharge Planning/Care Management CM Discharge Assessment Start: 05/30/23 15:57 Freq: Status: Active Protocol: Document 05/30/23 15:58 BF (Rec: 05/30/23 15:58 BF [id number]) Discharge Planning Assessment Assigned Lace Machine Operator HOWIE Lemons DPOA/Assigned Designee Name spouse Jayla Advance Directives? Yes: Advance Directive POLST Advance Directives on File Yes History Provided By Patient,Family Member,Medical Record Has Patient been admitted in last 30 No days? Prior Living Arrangements House Household Members spouse Type of transporation used prior to Drives own vehicle admit Independent with ADL's Yes Is patient alert and oriented? Yes Caregiver for Another No Barriers to Discharge No Comment Supportive spouse at home Discharge Plan Home Transportation Arrangement Spouse Referrals Initiated Home Health Additional Comment SNF vs HH. Sent Fax to [facility] who he is current with. If patient plan is home with home health If home with HH, will need : Has signed face to face form been resumption of care, Alpha completed? Review Status In Process Please Provide Date Initial DC 05/30/23 Assessment Was Performed Next Review Type Continued Stay Review
== END 2023-05-30 16:31 | disposition home or self-care (01) | DRG 389 ==
LOC: ED 12:49 → AC 13:54
PROVIDERS: Admitting Provider Internal Medicine; Emergency Provider Emergency Medicine; PCP Student in an Organized Health Care Education/Training Program; Referring Provider Emergency Medicine; Visit Provider Internal Medicine
DX: K56.52 Intestinal adhesions [bands] with complete obstruction (principal); I50.32 Chronic diastolic (congestive) heart failure; N17.9 Acute kidney failure, unspecified; I11.0 Hypertensive heart disease with heart failure; I25.10 Atherosclerotic heart disease of native coronary artery without angina pectoris; E11.9 Type 2 diabetes mellitus without complications; N40.0 Benign prostatic hyperplasia without lower urinary tract symptoms; E78.2 Mixed hyperlipidemia; Z87.891 Personal history of nicotine dependence; Z95.5 Presence of coronary angioplasty implant and graft; Z79.84 Long term (current) use of oral hypoglycemic drugs
CPT/HCPCS: 36415; 51702; 71045; 74018; 74176; 80048; 80053; 81001; 82962; 83605; 83690; 83880; 84145; 85025; 87040; 87077; 87086; 93005; 94762; 96372; 96374; 96375; 97162; 97530; 99232; 99285; J0696; J1170; J1815; J2270; J2405; J3010

== ENCOUNTER → 2023-07-07 08:13 | Outpatient (CLI) | payer MEDICARE, SELFPAY ==
[2022-04-18 03:55] VITALS: RESP 16
[2022-05-25 14:41] VITALS: PULSE 84; RESP 20; O2SAT 99
[2023-05-28 16:17] VITALS: BMI 30.2
[2023-07-07 09:14] LABS: Appearance Urine UA CLOUDY; Bilirubin Urine UA NEGATIVE (NEGATIVE); Color Urine UA YELLOW; Glucose Urine UA NEGATIVE (Negative); Ketones Urine UA NEGATIVE (NEGATIVE); Leukocyte Esterase Urine UA 2+ (NEGATIVE); Nitrite Urine UA NEGATIVE (Negative); Occult Blood Urine UA 1+ (Negative); Protein Urine UA 2+ (Negative); Specific Gravity Urine UA 1.025 (1.000-1.035); Urobilinogen Urine UA 0.2 E.U./dL (0.2); pH Urine UA 5.5 (4.5-8.0)
[2023-07-07 09:25] LABS: Bacteria Urine None Seen; Culture Indicated Urine Specimen Cultured; RBC Urine 5-10/HPF (0-5/HPF); Squamous Epithelial Cell Urine 1-5 /HPF (0-5/HPF); WBC Urine 30-100/HPF (0-5/HPF)
[2023-07-07 09:49] LABS: Hemoglobin A1C% w Est Avg Glu 7.9 % (4.0-6.0)
[2023-07-07 10:20] LABS: Alanine Aminotransferase 45 IU/L (<50); Albumin 4.4 g/dL (3.5-5.0); Albumin Globulin Ratio 1.5 (1.0-2.8); Alkaline Phosphatase 79 U/L (38-126); Aspartate Aminotransferase 26 IU/L (17-59); BUN Creatinine Ratio 35.4 (6-22); Bilirubin Total 0.5 mg/dL (0.2-1.3); Blood Urea Nitrogen 34 mg/dL (9-20); Calcium 9.9 mg/dL (8.4-10.2); Carbon Dioxide 26 mmol/L (22-32); Chloride 101 mmol/L (98-107); Cholesterol 156 mg/dL (140-199); Estimated Glomerular Filt Rate > 60 mL/min (>60); Globulin 2.9 g/dL (1.7-4.1); Glucose 145 mg/dL (80-110); HDL Cholesterol 40 mg/dL (40-60); HEMOLYSIS < 15 (0-50); Potassium 5.1 mmol/L (3.4-5.1); Sodium 136 mmol/L (137-145); Total Protein 7.3 g/dL (6.3-8.2); Triglycerides 457 mg/dL (35-150)
== END ==
PROVIDERS: PCP Family Medicine; Referring Provider Family Medicine; Visit Provider Family Medicine
DX: Z00.00 Encounter for general adult medical examination without abnormal findings (principal); E11.9 Type 2 diabetes mellitus without complications; I10 Essential (primary) hypertension; N17.9 Acute kidney failure, unspecified; E78.2 Mixed hyperlipidemia
CPT/HCPCS: 36415; 80053; 80061; 81001; 83036; 87086

== ENCOUNTER → 2023-08-16 11:32 | Outpatient (ROUT) | payer MEDICARE, SELFPAY ==
[2022-04-18 03:55] VITALS: RESP 16
[2022-05-25 14:41] VITALS: PULSE 84; RESP 20; O2SAT 99
[2023-05-28 16:17] VITALS: BMI 30.2
[2023-08-16 11:33] LABS: Urine Volume 10mL (spun)
[2023-08-16 11:46] LABS: Appearance Urine UA CLEAR; Bilirubin Urine UA NEGATIVE (NEGATIVE); Color Urine UA YELLOW; Glucose Urine UA NEGATIVE (Negative); Ketones Urine UA NEGATIVE (NEGATIVE); Leukocyte Esterase Urine UA 1+ (NEGATIVE); Nitrite Urine UA NEGATIVE (Negative); Occult Blood Urine UA 1+ (Negative); Protein Urine UA 2+ (Negative); Specific Gravity Urine UA 1.025 (1.000-1.035); Urobilinogen Urine UA 0.2 E.U./dL (0.2)
[2023-08-16 13:01] LABS: RBC Urine 0-1/HPF (0-5/HPF)
[2023-08-16 13:02] LABS: Bacteria Urine Occasional (0-1); Culture Indicated Urine Specimen Cultured; Mucus Urine 2+ (Negative); Squamous Epithelial Cell Urine 1-5 /HPF (0-5/HPF); Transitional Epi Cells Urine 0-1/HPF (0-5/HPF); WBC Urine 30-100/HPF (0-5/HPF)
== END ==
PROVIDERS: PCP Family Medicine; Visit Provider Family Medicine
DX: R30.0 Dysuria (principal)
CPT/HCPCS: 81001; 87086

== ENCOUNTER → 2023-10-04 07:41 | Outpatient (CLI) | payer MEDICARE, SELFPAY ==
[2022-04-18 03:55] VITALS: RESP 16
[2022-05-25 14:41] VITALS: PULSE 84; RESP 20; O2SAT 99
[2023-05-28 16:17] VITALS: BMI 30.2
[2023-10-04 09:06] LABS: Hemoglobin A1C% w Est Avg Glu 7.2 % (4.0-6.0)
[2023-10-04 09:10] LABS: Alanine Aminotransferase 62 IU/L (<50); Albumin 4.3 g/dL (3.5-5.0); Albumin Globulin Ratio 1.5 (1.0-2.8); Alkaline Phosphatase 82 U/L (38-126); Aspartate Aminotransferase 32 IU/L (17-59); BUN Creatinine Ratio 33.3 (6-22); Bilirubin Total 0.6 mg/dL (0.2-1.3); Blood Urea Nitrogen 27 mg/dL (9-20); Calcium 9.6 mg/dL (8.4-10.2); Carbon Dioxide 31 mmol/L (22-32); Chloride 101 mmol/L (98-107); Cholesterol 141 mg/dL (140-199); Estimated Glomerular Filt Rate > 60 mL/min (>60); Globulin 2.8 g/dL (1.7-4.1); Glucose 135 mg/dL (80-110); HDL Cholesterol 49 mg/dL (40-60); HEMOLYSIS < 15 (0-50); LDL Cholesterol Calculated 29 mg/dL (<100); Sodium 138 mmol/L (137-145); Total Protein 7.1 g/dL (6.3-8.2); Triglycerides 316 mg/dL (35-150)
[2023-10-04 09:14] LABS: Potassium 5.6 mmol/L (3.4-5.1)
[2023-10-04 09:17] LABS: NT-proBNP (BNP-Adult 18+) 103 pg/mL (<450)
[2023-10-04 16:16] LABS: Appearance Urine UA CLOUDY; Bilirubin Urine UA NEGATIVE (NEGATIVE); Color Urine UA YELLOW; Glucose Urine UA TRACE g/dL (Negative); Ketones Urine UA TRACE (NEGATIVE); Leukocyte Esterase Urine UA 2+ (NEGATIVE); Nitrite Urine UA NEGATIVE (Negative); Occult Blood Urine UA 1+ (Negative); Protein Urine UA 2+ (Negative); Specific Gravity Urine UA 1.025 (1.000-1.035); Urobilinogen Urine UA 0.2 E.U./dL (0.2)
[2023-10-04 16:26] LABS: Urine Volume 10mL (spun)
[2023-10-04 16:27] LABS: Bacteria Urine Many (>30); Culture Indicated Urine Specimen Cultured; RBC Urine 1-5/HPF (0-5/HPF); Squamous Epithelial Cell Urine None Seen (0-5/HPF); WBC Urine >100/HPF (0-5/HPF)
== END ==
PROVIDERS: PCP Family Medicine; Referring Provider Nurse Practitioner; Visit Provider Nurse Practitioner
DX: E11.9 Type 2 diabetes mellitus without complications (principal); R06.09 Other forms of dyspnea; I25.10 Atherosclerotic heart disease of native coronary artery without angina pectoris; E78.5 Hyperlipidemia, unspecified
CPT/HCPCS: 36415; 80053; 80061; 81001; 83036; 83880; 87086

== ENCOUNTER → 2024-05-18 08:07 | Outpatient (CLI) | payer MEDICARE, SELFPAY ==
[2022-04-18 03:55] VITALS: RESP 16
[2022-05-25 14:41] VITALS: PULSE 84; RESP 20; O2SAT 99
[2023-05-28 16:17] VITALS: BMI 30.2
[2024-05-18 09:50] LABS: Creatinine Urine Random 38.24 mg/dL
[2024-05-18 09:50] LABS: Add Manual Diff / Slide Review NO; Basophils Absolute Auto 0 /uL (0-100); Basophils Percent Auto 0.5 % (0-2); Eosinophils Absolute Auto 100 /uL (0-450); Eosinophils Percent Auto 2.1 % (2-4); Hematocrit 39.5 % (41-53); Hemoglobin 12.8 g/dL (13.5-17.5); Lymphocytes Absolute Auto 1400 /uL (1100-4500); Lymphocytes Percent Auto 23.6 % (25-40); Mean Corpuscular HGB Conc 32.4 % (30-36); Mean Corpuscular Hemoglobin 28.2 PG (26-34); Mean Corpuscular Volume 87.2 fL (80-100); Monocytes Absolute Auto 400 /uL (0-900); Monocytes Percent Auto 7.7 % (3-14); Neutrophils Absolute Auto 3800 /uL (1500-7000); Neutrophils Percent Auto 66.1 % (50-75); Platelet Count 148 X10^3/uL (150-400); Red Blood Cell Count 4.53 X10^6/uL (4.5-5.9); Red Cell Distribution Width 15.9 % (11.6-14.8); White Blood Cell Count 5.8 X10^3/uL (4.5-11.0)
[2024-05-18 10:20] LABS: Hemoglobin A1C% w Est Avg Glu 7.2 % (4.0-6.0)
[2024-05-18 10:23] LABS: BUN Creatinine Ratio 38.1 (6-22); Blood Urea Nitrogen 32 mg/dL (9-20); Calcium 9.4 mg/dL (8.4-10.2); Carbon Dioxide 24 mmol/L (22-32); Chloride 104 mmol/L (98-107); Cholesterol 157 mg/dL (140-199); Estimated Glomerular Filt Rate > 60 mL/min (>60); Glucose 106 mg/dL (80-110); HDL Cholesterol 47 mg/dL (40-60); HEMOLYSIS < 15 (0-50); LDL Cholesterol Calculated 37 mg/dL (<100); Sodium 136 mmol/L (137-145); Triglycerides 366 mg/dL (35-150)
[2024-05-18 15:25] LABS: Microalbumin Urine Random 59.5 mg/dL (0-1.6)
== END ==
PROVIDERS: PCP Family Medicine; Referring Provider Family Medicine; Visit Provider Family Medicine
DX: E11.9 Type 2 diabetes mellitus without complications (principal); I10 Essential (primary) hypertension; E78.2 Mixed hyperlipidemia
CPT/HCPCS: 36415; 80048; 80061; 82043; 82570; 83036; 85025

== ENCOUNTER → 2024-06-02 10:27 | Outpatient (CLI) | payer MEDICARE, SELFPAY ==
[2022-04-18 03:55] VITALS: RESP 16
[2022-05-25 14:41] VITALS: PULSE 84; RESP 20; O2SAT 99
[2023-05-28 16:17] VITALS: BMI 30.2
--- NOTE | 2024-06-02 10:28 | DI.RAD.S_ITS ---
PROCEDURE: XR CERVICAL SPINE 2V OR 3V INDICATIONS: Cervical radiculopathy TECHNIQUE: Four views of the cervical spine were acquired. COMPARISON: None. FINDINGS: Cervical spine curvature and alignment: Normal. Bones: There are no osseous abnormalities. Disc spaces: Mild C3-4, C4-5, C5-6 and C6-7 degenerative disc disease noted. There is mild degenerate facet disease C3-4 through C7-T1. Intervertebral foramen: Grossly normal in width. Soft tissues: Moderate calcific plaque seen in the carotid bifurcation regions. IMPRESSION: Mild degeneration. Moderate calcific plaque in the carotid bifurcation regions. Suggest carotid Doppler Dictated by: Hernandez Lind M.D. on 06/03/2024 at 8:42 Approved by: Hernandez Lind M.D. on 06/03/2024 at 8:43
== END ==
PROVIDERS: PCP Family Medicine; Referring Provider Family Medicine; Visit Provider Family Medicine
DX: M47.22 Other spondylosis with radiculopathy, cervical region (principal); M50.11 Cervical disc disorder with radiculopathy, high cervical region
CPT/HCPCS: 72040

== ENCOUNTER → 2024-06-23 06:58 | Outpatient (CLI) | payer MEDICARE, SELFPAY ==
[2022-04-18 03:55] VITALS: RESP 16
[2022-05-25 14:41] VITALS: PULSE 84; RESP 20; O2SAT 99
[2023-05-28 16:17] VITALS: BMI 30.2
--- NOTE | 2024-06-23 06:59 | DI.US.S_ITS ---
PROCEDURE: US CAROTID DOPPLER BI INDICATIONS: MODERATE CALCIFICATIONS CAROTID BIFURICATIONS BILATERALLY XR TECHNIQUE: Color and pulse Doppler interrogation was performed of both carotid systems, with image documentation and velocity measurements. COMPARISON: None. FINDINGS: Stenosis calculations are based on SRU (Society of Radiologists in Ultrasound) criteria. Right side: Brachial blood pressure: 152/86 mm Hg. Common carotid artery peak systolic velocity: 84 cm/sec. Internal carotid artery peak systolic velocity: 107 cm/sec. Internal carotid artery end diastolic velocity: 24 cm/sec. External carotid artery peak systolic velocity: 139 cm/sec. ICA/CCA peak systolic ratio: 1.3. Gerber scale imaging description: Dense shadowing plaque is present at the carotid bifurcation. Percent internal carotid artery stenosis: Less than 50% stenosis. Vertebral artery: Flow direction is antegrade. Left side: Brachial blood pressure: 140/85 mm Hg. Common carotid artery peak systolic velocity: 37 cm/sec. Internal carotid artery peak systolic velocity: 304 cm/sec. Internal carotid artery end diastolic velocity: 717 cm/sec. External carotid artery peak systolic velocity: 255 cm/sec. ICA/CCA peak systolic ratio: 8.3 . Gerber scale imaging description: Dense shadowing plaque is present at the left carotid bifurcation. Percent internal carotid artery stenosis: 70% to near occlusion. Vertebral artery: Flow direction is antegrade. IMPRESSION: 1. Less than 50% stenosis of the right internal carotid artery. 2. Critical, near occlusive stenosis of the left internal carotid artery. Vascular surgery consultation recommended. Dictated by: Diane Valdez M.D. on 06/23/2024 at 13:31 Approved by: Diane Valdez M.D. on 06/23/2024 at 13:34
== END ==
PROVIDERS: PCP Family Medicine; Referring Provider Family Medicine; Visit Provider Family Medicine
DX: I65.23 Occlusion and stenosis of bilateral carotid arteries (principal)
CPT/HCPCS: 93880

== ENCOUNTER 2024-12-03 08:49 | Emergency (ER) | payer MEDICARE, SELFPAY ==
[2022-04-18 03:55] VITALS: RESP 16
[2022-05-25 14:41] VITALS: PULSE 84; RESP 20; O2SAT 99
[2023-05-28 16:17] VITALS: BMI 30.2
[2024-12-03] VITALS (12 sets, daily range): BP systolic 153–210; BP diastolic 75–105; PULSE 76–92; RESP 14–28; TEMP 36.6; O2SAT 91–97; BMI 29.9
--- NOTE | 2024-12-03 09:06 | DI.CT.S_ITS ---
PROCEDURE: CT ANGIO HEAD AND NECK INDICATIONS: post left endarterectomy TECHNIQUE: After the administration of intravenous contrast, 1 mm thick sections acquired from the aortic arch through the [place] of [place]. 3-dimensional kmfbuon-zeiikngcm-mpldknpnre (MIP) and/or volume rendering reformats were acquired of the central intracranial vasculature and neck separately. For radiation dose reduction, the following was used: automated exposure control, adjustment of mA and/or kV according to patient size. COMPARISON: None. FINDINGS: Image quality: Diagnostic. BRAIN: CSF spaces: Ventricles are normal in size and shape. Basal cisterns are patent. No extra-axial fluid collections. Brain: No significant abnormality of the brain can be seen. Skull and face: Calvarium and facial bones appear intact, without suspicious lesions. Orbits appear normal. Sinuses: Sinuses and mastoids are clear. HEAD CT ANGIOGRAPHY: Anterior circulation: Intracranial internal carotid arteries are normal in size and flow. There is normal variant markedly diminutive A1 segment of the left anterior cerebral artery with a patent anterior communicating artery. The flow within the paired anterior cerebral arteries is normal and symmetric. The flow within the middle cerebral arteries is normal and symmetric. No aneurysms are seen. Posterior circulation: Visualized portions of the vertebral arteries demonstrate normal caliber, and join to form a normal variant somewhat diminutive basilar artery, resultant from significant flow to the posterior cerebral arteries from the anterior circulation bilaterally via patent posterior communicating arteries. Flow within the posterior cerebral arteries is normal and symmetric. No aneurysms are seen. NECK CT ANGIOGRAPHY: Carotid system: The great vessels demonstrate a conventional anatomy as they arise from the aortic arch. The origins of the common carotid arteries appear patent. The common carotid arteries demonstrate normal caliber and courses. The bifurcation regions are both widely patent. Very recent left carotid endarterectomy. Expected postsurgical change surrounding the carotid with mild kinking noted of the proximal internal carotid artery. There is a less than 50% stenosis of the proximal right internal carotid artery secondary to complex partially calcified and partially soft plaque. Posterior circulation: The origins of the vertebral arteries both appear widely patent. The more superior extracranial portions of both vertebral arteries also demonstrate normal courses and calibers. They join to form a normal appearing basilar artery. Soft tissues: Visualized neck soft tissues demonstrate no suspicious abnormalities. Abnormal appearance of left posterior tongue, which obliterates some of the posterior oral cavity air space.. Question paralysis of left tongue. Bones: No suspicious bony lesions. Visualized cervical spine appears normally aligned. Diffuse cervical spondylitic change with canal stenosis at C5-C6 and C6-C7. Mild chronic compressions of T3, T4, and T5. Multilevel cervical bony foraminal narrowing. IMPRESSION: 1. Postsurgical appearance of left carotid endarterectomy with mild focal kinking without hemodynamically significant stenosis identified. 2. Less than 50% proximal right internal carotid artery stenosis. 3. No significant intracranial arterial abnormality identified. 4. Abnormal appearance of posterior left tongue, question paralysis. It obliterates some of the left oral cavity air space. Recommend correlation with direct visualization and cranial nerve neuro examination. 5. Severe cervical spondylitic change with canal stenosis and multilevel foraminal narrowing. 6. Osteoporotic compressions of T3, T4, and T5. Comment: Consider brain MRI to check for possible acute infarct. Any quantitative measurements of stenosis were performed using NASCET criteria. Dictated by: Marshall Carpio M.D. on 12/03/2024 at 10:42 Approved by: Marshall Carpio M.D. on 12/03/2024 at 10:51
--- NOTE | 2024-12-03 09:09 | EKG_ITS ---
[address] [address] Test Date: 2024-12-03 Pat Name: Shantanu Underwood Department: Room: Gender: Male Bi Report Developer: JUDI : 1945 Requested By: Order Number: [id number] Reading MD: Hernandez Campbell MD Measurements Intervals [place] Rate: 86 P: 24 [place]: 162 QRS: -34 QRSD: 110 T: 32 QT: 376 QTc: 449 Interpretive Statements Sinus rhythm with premature atrial complexes Left axis deviation NO SIGNIFICANT CHANGE FROM PRIOR TRACING Electronically Signed On 12-03-2024 10:05:39 PDT by Hernandez Campbell MD
--- NOTE | 2024-12-03 09:17 | DI.CT.S_ITS ---
PROCEDURE: CT HEAD/BRAIN WO CON INDICATIONS: slurring of words post left carotid endarterectomy TECHNIQUE: Noncontrast 4.5 mm thick angled axial sections acquired from the foramen magnum to the vertex, with coronal and sagittal reformats. For radiation dose reduction, the following was used: automated exposure control, adjustment of mA and/or kV according to patient size. COMPARISON: [facility], CT, CT HEAD/BRAIN WO CON, 05/22/2022, 9:20. FINDINGS: Image quality: Diagnostic. CSF spaces: Basal cisterns are patent. No extra-axial fluid collections. The ventricles are symmetric in size and shape. Brain: No intracranial bleeds or mass effect. There is cerebral volume loss, with resultant ventricular and sulcal prominence. There are periventricular and deep white matter chronic small vessel ischemic changes. There is intracranial internal carotid artery atherosclerosis. Skull and face: Calvarium and visualized facial bones appear intact, without suspicious lesions. Sinuses: Visualized sinuses and mastoids are clear. IMPRESSION: No acute intracranial pathology. Comment: If suspect acute stroke, consider brain MRI. Dictated by: Marshall Crapio M.D. on 12/03/2024 at 10:40 Approved by: Marshall Carpio M.D. on 12/03/2024 at 10:41
--- NOTE | 2024-12-03 09:21 | ED.NEUROSD ---
HPI - Neuro Symptoms/Deficit General Chief Complaint: Weakness Stated Complaint: Wants MRI for a blood bleed Time Seen by Provider: 12/03/24 09:06 History of Present Illness HPI Narrative: Patient is a 79-year-old male true Varnsey-Ivrgi-Ywqbw hyperlipidemia hypertension status post left parotidectomy 1 week at [facility]. reports that since surgery he immediately started having some slurring of speech. He was told that the slurring of speech would go away in a couple of days it has not. He denies any new numbness tingling or weakness. He was noting some increasing shortness of breath. Also this morning noticed some significant left submandibular swelling. Some mild difficulty swallowing no trouble breathing. No chest pain. No visual loss. On Anticoagulants: Yes Related Data Home Medications Medication Instructions Recorded Confirmed acetaminophen 325 mg tablet 500 mg PO Q6H PRN Fever/Mild Pain 06/10/22 06/30/24 (1-3) metoprolol succinate 25 mg 12.5 - 25 mg PO DAILY 05/28/23 06/30/24 tablet,extended release 24 hr fluticasone propionate 50 spray intranasal 07/15/23 06/30/24 mcg/actuation nasal spray,suspension Previous Rx's Medication Instructions Recorded polyethylene glycol 3350 17 gram 17 gm PO DAILY PRN Constipation 05/27/22 oral powder packet #10 ea blood sugar diagnostic (OneTouch #100 ea 09/30/22 Verio test strips) albuterol sulfate 90 mcg/actuation 1 puff PO Q6H PRN for wheezing 12/19/23 aerosol inhaler #8.5 grams Disabled Parking Permit #1 ea 04/12/24 methocarbamol 500 mg tablet 500 mg PO TID PRN muscle spasm #90 06/29/24 tabs fluticasone fur. 200 mcg-umeclid 1 inh inhalation DAILY #60 ea 06/30/24 62.5 mcg-vilant 25 mcg inhalat.powder (Trelegy Ellipta) ropinirole 4 mg tablet 6 mg (1.5 x 4 mg) PO BID #270 tabs 09/14/24 trazodone 50 mg tablet 50 mg PO ONCE PM for insomnia #30 10/07/24 tabs clopidogrel 75 mg tablet 75 mg PO DAILY #90 tabs 10/11/24 atorvastatin 20 mg tablet 20 mg PO ONCE PM #90 tabs 10/25/24 losartan 25 mg tablet 25 mg PO DAILY #90 tabs 10/25/24 semaglutide 1 mg/dose (4 mg/3 mL) 1 mg (0.75 mL) SUBCUT QWEEK #3 mL 10/28/24 subcutaneous pen injector Allergies Allergy/AdvReac Type Severity Reaction Status Date / Time No Known Drug Allergies Allergy Verified 06/30/24 13:48 Review of Systems Hematologic/Lymphatic On Anticoagulants: Yes Patient History Medical History Djroyxh-Hqmwm-Fcydp disease History of non-ST elevation myocardial infarction (NSTEMI) Anticoagulated on heparin Mixed hyperlipidemia Hypertension, essential Peripheral vascular disease of extremity Sleep apnea in adult Bilateral nephrolithiasis History of renal calculi Acute renal failure syndrome Brain concussion Basal cell carcinoma Duodenal ulcer History of malignant neoplasm of colon (05/29/15) Complete obstruction of small intestine (05/28/23) Hernia Arthritis Surgical History History of heart artery stent (04/18/22) Hx of cystoscopy (03/25/22) Hx of cystoscopy (12/03/21) Hx of cystoscopy (10/16/21) S/P ureteral stent placement Status post vascular bypass (2013) Status post colectomy (~1995) Family History Father Ulcer History of blood clots Mother No known problems Social History marital status: household members: spouse lives independently: Yes occupational status: other alcohol intake: current substance use type: does not use Type(s) of exercise: bicycling frequency: 1-2 times per week alcohol intake frequency: a few times a month Exam Initial Vital Signs Initial Vital Signs: Vital Signs Pulse Rate 91 H 12/03/24 09:04 Pulse Oximetry 95 12/03/24 09:04 GENERAL: Alert pleasant 79-year-old male HEENT: Head atraumatic,EOMI, pupils reactive, face symmetric, who is tongue is mildly more swollen on the left than the right but not causing any kind of airway impingement managing his own secretions without difficulty speaking without difficulty no uvula swelling or deviation CARDIOVASCULAR: Regular rate and rhythm without murmurs, rubs or gallops. RESPIRATORY: Breath sounds equal bilaterally, no wheezes rales or rhonchi. ABDOMEN: Soft, nontender. Normoactive bowel sounds all 4 quadrants. No guarding or rebound. EXTREMITIES: Normal range of motion, no clubbing or edema. Neurovascularly intact NEUROLOGICAL: Alert and oriented x4.Normal gait and speech. Cranial nerves II through XII grossly intact. Good syrbjt-cb-dcsc, good vcly-sl-sqiq, strength equal bilaterally, no dysarthria or aphasia, sensation in tact to soft touch bilaterally, no visual changes, no facial droop SKIN: Warm, dry, no laceration, no petechiae, no rashes or lesions. Course Orders Ordered: ED Orders 12/03/24 09:04 EKG-12 Lead Stat 12/03/24 09:06 CT angio head and neck Stat 12/03/24 09:17 CT head/brain wo con Stat 12/03/24 09:28 Complete Blood Count AUTO DIFF Stat PTT Partial Thromboplastin Qasim Stat Prothrombin Time INR Stat 12/03/24 10:25 Comprehensive Metabolic Panel Stat Lipase Stat Troponin & CK Cardiac Panel Stat 12/03/24 11:16 Chest [XR chest 1V] Stat Discontinued Medications Dexamethasone (Dexamethasone 10 Mg/Ml Vial) 10 mg IV NOW ONE Stop: 12/03/24 12:12 Last Admin: 12/03/24 12:24 Dose: 10 mg Documented By: ELSA Vital Signs Vital signs: Vital Signs - 8 hr 12/03/24 09:04 12/03/24 09:05 12/03/24 09:05 Temperature Pulse Rate 91 H 92 H Respiratory Rate 28 H Blood Pressure 210/88 H Pulse Oximetry 95 95 Oxygen Delivery Method Room Air 12/03/24 09:06 12/03/24 09:40 12/03/24 09:41 Temperature 97.8 F Pulse Rate 86 85 Respiratory Rate 16 26 H Blood Pressure 210/88 H 179/79 H Pulse Oximetry 95 97 Oxygen Delivery Method Room Air 12/03/24 09:41 12/03/24 10:00 12/03/24 10:00 Temperature Pulse Rate 86 80 Respiratory Rate 27 H 19 Blood Pressure 153/75 H Pulse Oximetry 93 91 Oxygen Delivery Method 12/03/24 10:30 12/03/24 10:30 12/03/24 11:00 Temperature Pulse Rate 76 Respiratory Rate 21 Blood Pressure 165/78 H 164/81 H Pulse Oximetry 92 Oxygen Delivery Method 12/03/24 11:00 12/03/24 11:30 12/03/24 11:30 Temperature Pulse Rate 76 88 Respiratory Rate 19 18 Blood Pressure 208/105 H Pulse Oximetry 93 93 Oxygen Delivery Method 12/03/24 12:00 12/03/24 12:00 12/03/24 12:30 Temperature Pulse Rate 78 Respiratory Rate 24 Blood Pressure 178/84 H 171/86 H Pulse Oximetry 91 Oxygen Delivery Method 12/03/24 12:30 12/03/24 12:52 Temperature Pulse Rate 78 80 Respiratory Rate 22 14 Blood Pressure 171/86 H Pulse Oximetry 91 91 Oxygen Delivery Method Room Air MDM - Neuro Symptoms/Deficit Lab Data 12/03/24 09:28 12/03/24 10:25 Labs: Lab Results 12/03/24 12/03/24 Range/Units 09:28 10:25 WBC 5.3 (4.5-11.0) X10^3/uL RBC 4.08 L (4.5-5.9) X10^6/uL Hgb 12.3 L (13.5-17.5) g/dL Hct 36.9 L (41-53) % MCV 90.6 (80-100) fL MCH 30.1 (26-34) PG MCHC 33.2 (30-36) % RDW 14.4 (11.6-14.8) % Plt Count 168 (150-400) X10^3/uL Neut % (Auto) 68.8 (50-75) % Lymph % (Auto) 21.1 L (25-40) % Meade % (Auto) 7.9 (3-14) % Eos % (Auto) 1.5 L (2-4) % Baso % (Auto) 0.7 (0-2) % Neut # (Auto) 3600 (2652-6641) /uL Lymph # (Auto) 1100 (1592-7051) /uL Meade # (Auto) 400 (0-900) /uL Eos # (Auto) 100 (0-450) /uL Baso # (Auto) 0 (0-100) /uL PT 11.9 (9.4-12.5) SECONDS INR 1.1 (0.9-1.3) APTT 32 (25.1-36.5) SECONDS Sodium 137 (137-145) mmol/L Potassium 4.2 (3.4-5.1) mmol/L Chloride 104 (98-107) mmol/L Carbon Dioxide 26 (22-32) mmol/L BUN 28 H (9-20) mg/dL Creatinine 0.90 (0.66-1.25) mg/dL Estimated GFR > 60 (>60) mL/min BUN/Creatinine Ratio 31.1 H (6-22) Glucose 179 H (70-99) mg/dL Calcium 9.1 (8.4-10.2) mg/dL Total Bilirubin 0.4 (0.2-1.3) mg/dL AST 23 (17-59) IU/L ALT 31 (<50) IU/L Alkaline Phosphatase 69 (38-126) U/L Total Creatine Kinase 65 (55-170) U/L Troponin I < 0.012 (0.01-0.034) ng/mL Total Protein 6.6 (6.3-8.2) g/dL Albumin 3.9 (3.5-5.0) g/dL Globulin 2.7 (1.7-4.1) g/dL Albumin/Globulin Ratio 1.4 (1.0-2.8) Lipase 71 (23-300) U/L Imaging Data CT scan - head: Radiologist's Impression: PROCEDURE: CT HEAD/BRAIN WO CON INDICATIONS: slurring of words post left carotid endarterectomy TECHNIQUE: Noncontrast 4.5 mm thick angled axial sections acquired from the foramen magnum to the vertex, with coronal and sagittal reformats. For radiation dose reduction, the following was used: automated exposure control, adjustment of mA and/or kV according to patient size. COMPARISON: [facility], CT, CT HEAD/BRAIN WO CON, 05/22/2022, 9:20. FINDINGS: Image quality: Diagnostic. CSF spaces: Basal cisterns are patent. No extra-axial fluid collections. The ventricles are symmetric in size and shape. Brain: No intracranial bleeds or mass effect. There is cerebral volume loss, with resultant ventricular and sulcal prominence. There are periventricular and deep white matter chronic small vessel ischemic changes. There is intracranial internal carotid artery atherosclerosis. Skull and face: Calvarium and visualized facial bones appear intact, without suspicious lesions. Sinuses: Visualized sinuses and mastoids are clear. IMPRESSION: No acute intracranial pathology. Comment: If suspect acute stroke, consider brain MRI. Dictated by: Marshall Carpio M.D. on 12/03/2024 at 10:40 CTA - brain/neck: Radiologist's Impression: PROCEDURE: CT ANGIO HEAD AND NECK INDICATIONS: post left endarterectomy TECHNIQUE: After the administration of intravenous contrast, 1 mm thick sections acquired from the aortic arch through the [place] of [place]. 3-dimensional gepboaw-aqejduegj-vaqjcjdqxm (MIP) and/or volume rendering reformats were acquired of the central intracranial vasculature and neck separately. For radiation dose reduction, the following was used: automated exposure control, adjustment of mA and/or kV according to patient size. COMPARISON: None. FINDINGS: Image quality: Diagnostic. BRAIN: CSF spaces: Ventricles are normal in size and shape. Basal cisterns are patent. No extra-axial fluid collections. Brain: No significant abnormality of the brain can be seen. Skull and face: Calvarium and facial bones appear intact, without suspicious lesions. Orbits appear normal. Sinuses: Sinuses and mastoids are clear. HEAD CT ANGIOGRAPHY: Anterior circulation: Intracranial internal carotid arteries are normal in size and flow. There is normal variant markedly diminutive A1 segment of the left anterior cerebral artery with a patent anterior communicating artery. The flow within the paired anterior cerebral arteries is normal and symmetric. The flow within the middle cerebral arteries is normal and symmetric. No aneurysms are seen. Posterior circulation: Visualized portions of the vertebral arteries demonstrate normal caliber, and join to form a normal variant somewhat diminutive basilar artery, resultant from significant flow to the posterior cerebral arteries from the anterior circulation bilaterally via patent posterior communicating arteries. Flow within the posterior cerebral arteries is normal and symmetric. No aneurysms are seen. NECK CT ANGIOGRAPHY: Carotid system: The great vessels demonstrate a conventional anatomy as they arise from the aortic arch. The origins of the common carotid arteries appear patent. The common carotid arteries demonstrate normal caliber and courses. The bifurcation regions are both widely patent. Very recent left carotid endarterectomy. Expected postsurgical change surrounding the carotid with mild kinking noted of the proximal internal carotid artery. There is a less than 50% stenosis of the proximal right internal carotid artery secondary to complex partially calcified and partially soft plaque. Posterior circulation: The origins of the vertebral arteries both appear widely patent. The more superior extracranial portions of both vertebral arteries also demonstrate normal courses and calibers. They join to form a normal appearing basilar artery. Soft tissues: Visualized neck soft tissues demonstrate no suspicious abnormalities. Abnormal appearance of left posterior tongue, which obliterates some of the posterior oral cavity air space.. Question paralysis of left tongue. Bones: No suspicious bony lesions. Visualized cervical spine appears normally aligned. Diffuse cervical spondylitic change with canal stenosis at C5-C6 and C6-C7. Mild chronic compressions of T3, T4, and T5. Multilevel cervical bony foraminal narrowing. IMPRESSION: 1. Postsurgical appearance of left carotid endarterectomy with mild focal kinking without hemodynamically significant stenosis identified. 2. Less than 50% proximal right internal carotid artery stenosis. 3. No significant intracranial arterial abnormality identified. 4. Abnormal appearance of posterior left tongue, question paralysis. It obliterates some of the left oral cavity air space. Recommend correlation with direct visualization and cranial nerve neuro examination. 5. Severe cervical spondylitic change with canal stenosis and multilevel foraminal narrowing. 6. Osteoporotic compressions of T3, T4, and T5. Comment: Consider brain MRI to check for possible acute infarct. Any quantitative measurements of stenosis were performed using NASCET criteria. Dictated by: Marshall Carpio M.D. on 12/03/2024 at 10:42 ECG Data Attestation: I personally reviewed and interpreted this ECG as follows: Prior ECG tracings: available for review Interpretation: Sinus very OH interval 62 OH interval [address] changes no T-wave inversions similar to previous EKGs [facility] Narrative Medical decision making narrative: [facility] CC: Slurring of speech swelling post carotid endarterectomy Complicating co-morbidities: Jjmcxgt-Cklex-Fkyfr hypertension hyperlipidemia Data collected from: Medical records reviewed: Differential considered: CVA intracranial hemorrhage hematoma aneurysm anaphylaxis Exam documented above, pertinent findings include: Alert 79-year-old male who does have some mild slurring of speech but still understandable. He was diffusely weak throughout his exam. No significant facial droop he was no visual changes. Does not appear to be mildly short of breath but breath sounds are clear Lab Test results independently reviewed as above. Pertinent findings: CBC WBC 5.3 hemoglobin 12.3 hematocrit 36.9 platelets 168 CMP sodium 137 potassium 4.2 chloride 104 carbon dioxide 26 BUN 28 creatinine 0.9 Bilirubin liver enzyme within normal limits Troponin negative Independently reviewed EKG as above Imaging studies independently reviewed: Consultations: [address] vascular at [facility] reviewed imaging this time can follow-up outpatient no complication from surgery Treatments: None Re-evaluations: Patient remained stable no significant worsening or improvement Discussion: Patient 79-year-old male history of recent left carotid endarterectomy presenting today with ongoing slurring of speech and swelling under the left side. Patient has no new neurovascular complaints. On exam tongue is slightly more swollen on the left but maintaining airway. He also does have some submandibular left-sided swelling at the postsurgical site CT does not show any significant surgery complication. Vascular surgery was consulted can follow up outpatient. Patient is given dose of dexamethasone to help with decreased swelling. He does not appear to have angioedema. He reports that this slurring of speech and tongue swelling has been ongoing since his surgery. He does report chewing food and needing to push it over to the right side to make it easier for him to chew. There is only minor amount of abnormality on that left side but it is visible and there. He has no hives no other evidence of any kind of angioedema or airway impingement. He does have some submandibular swelling but not really noted on the CT. Vascular surgery noted no complication. At this time outpatient follow up. Discussion about warning signs and when to return with and patient. Discharge Plan Departure Patient Disposition: Home Clinical Impression: Mild tongue swelling, Bhovfhm-Lfgwp-Forbq disease Activity Restrictions/Additional Instructions: *You have been diagnosed with mild tongue swelling postsurgical changes *What to do: At this time no complication from surgery. You can try an ice pack on the swelling to see if it helps. You were given 1 dose of dexamethasone here in the ED 60 if it helps with some swelling *Continue to take medications as directed *Follow up with your primary care provider in 2-3 days or call [phone] Follow-up with your vascular surgeon next week or as scheduled *Return to ER if you should have difficulty breathing swallowing solid or liquid or any new, worsening or concerning symptoms Prescriptions: No Action fluticasone propionate 50 mcg/actuation spray,suspension intranasal methocarbamol 500 mg tablet 500 mg PO TID PRN (Reason: muscle spasm) Qty: 90 0RF (DME) OneTouch Verio test strips Strip See Rx Instructions .ROUTE .MEDSUPPLY Qty: 100 0RF Rx Instructions: Use to test blood glucose ONCE DAILY albuterol sulfate 90 mcg/actuation HFA aerosol inhaler 1 puff PO Q6H PRN (Reason: for wheezing) Qty: 8.5 6RF (DME) Disabled Parking Permit See Rx Instructions .ROUTE .MEDSUPPLY Qty: 1 0RF Rx Instructions: I find this person to be disabled ropinirole 4 mg tablet 6 mg PO BID Qty: 270 1RF trazodone 50 mg tablet 50 mg PO ONCE PM Qty: 30 2RF clopidogrel 75 mg tablet 75 mg PO DAILY Qty: 90 2RF losartan 25 mg tablet 25 mg PO DAILY Qty: 90 2RF atorvastatin 20 mg tablet 20 mg PO ONCE PM Qty: 90 2RF semaglutide 1 mg/dose (4 mg/3 mL) pen injector 1 mg SUBCUT QWEEK Qty: 3 2RF polyethylene glycol 3350 17 gram Powder In Packet 17 gm PO DAILY PRN (Reason: Constipation) Qty: 10 0RF metoprolol succinate 25 mg tablet extended release 24 hr 12.5 - 25 mg PO DAILY Patient Comments: TAKE 1/2 to ONE TABLET BY MOUTH ONE TIME DAILY acetaminophen 325 mg tablet 500 mg PO Q6H PRN (Reason: Fever/Mild Pain (1-3)) Trelegy Ellipta 200-62.5-25 mcg blister with device 1 inh inhalation DAILY Qty: 60 11RF Rx Instructions: rinse mouth with water, gargle and spit after each use Referrals: Ben Segura MD [Primary Care Provider] - Stand Alone Forms: Patient Portal/API/Survey
[2024-12-03 09:43] LABS: Add Manual Diff / Slide Review NO; Basophils Absolute Auto 0 /uL (0-100); Basophils Percent Auto 0.7 % (0-2); Eosinophils Absolute Auto 100 /uL (0-450); Eosinophils Percent Auto 1.5 % (2-4); Hematocrit 36.9 % (41-53); Hemoglobin 12.3 g/dL (13.5-17.5); Lymphocytes Absolute Auto 1100 /uL (1100-4500); Lymphocytes Percent Auto 21.1 % (25-40); Mean Corpuscular HGB Conc 33.2 % (30-36); Mean Corpuscular Hemoglobin 30.1 PG (26-34); Mean Corpuscular Volume 90.6 fL (80-100); Monocytes Absolute Auto 400 /uL (0-900); Monocytes Percent Auto 7.9 % (3-14); Neutrophils Absolute Auto 3600 /uL (1500-7000); Neutrophils Percent Auto 68.8 % (50-75); Platelet Count 168 X10^3/uL (150-400); Red Blood Cell Count 4.08 X10^6/uL (4.5-5.9); Red Cell Distribution Width 14.4 % (11.6-14.8); White Blood Cell Count 5.3 X10^3/uL (4.5-11.0)
[2024-12-03 09:50] LABS: INR 1.1 (0.9-1.3); Prothrombin Time 11.9 SECONDS (9.4-12.5)
[2024-12-03 09:53] LABS: PTT Partial Thromboplastin Tim 32 SECONDS (25.1-36.5)
[2024-12-03 10:53] LABS: Alanine Aminotransferase 31 IU/L (<50); Albumin 3.9 g/dL (3.5-5.0); Albumin Globulin Ratio 1.4 (1.0-2.8); Alkaline Phosphatase 69 U/L (38-126); Aspartate Aminotransferase 23 IU/L (17-59); BUN Creatinine Ratio 31.1 (6-22); Bilirubin Total 0.4 mg/dL (0.2-1.3); Blood Urea Nitrogen 28 mg/dL (9-20); Calcium 9.1 mg/dL (8.4-10.2); Carbon Dioxide 26 mmol/L (22-32); Chloride 104 mmol/L (98-107); Creatine Kinase 65 U/L (55-170); Estimated Glomerular Filt Rate > 60 mL/min (>60); Globulin 2.7 g/dL (1.7-4.1); Glucose 179 mg/dL (70-99); HEMOLYSIS < 15 (0-50); Lipase 71 U/L (23-300); Potassium 4.2 mmol/L (3.4-5.1); Sodium 137 mmol/L (137-145); Total Protein 6.6 g/dL (6.3-8.2)
[2024-12-03 11:00] LABS: Troponin I < 0.012 ng/mL (0.01-0.034)
--- NOTE | 2024-12-03 11:16 | DI.RAD.S_ITS ---
PROCEDURE: XR CHEST 1V INDICATIONS: short of breath TECHNIQUE: One view of the chest was acquired. COMPARISON: [facility], CR, XR CHEST 1V, 05/28/2023, 12:09. FINDINGS: Surgical changes and devices: None. Lungs and pleura: Lungs are clear. No pleural effusions or pneumothorax. Mediastinum: Mediastinal contours appear normal. Heart size is enlarged. Bones and chest wall: No suspicious bony lesions. Overlying soft tissues appear unremarkable. IMPRESSION: No acute pulmonary process. Dictated by: Yasmeen Saini M.D. on 12/03/2024 at 11:58 Approved by: Yasmeen Saini M.D. on 12/03/2024 at 11:59
[2024-12-03] MEDS: DEXAMETHASONE 10 MG/ML VIAL IV (12:24)
== END 2024-12-03 12:54 | disposition home or self-care (01) ==
PROVIDERS: Emergency Provider Emergency Medicine; PCP Family Medicine
DX: K14.8 Other diseases of tongue (principal); R47.81 Slurred speech; G60.0 Hereditary motor and sensory neuropathy; I10 Essential (primary) hypertension; Z98.890 Other specified postprocedural states; F17.210 Nicotine dependence, cigarettes, uncomplicated
CPT/HCPCS: 36415; 70450; 70496; 70498; 71045; 80053; 82550; 83690; 84484; 85025; 85610; 85730; 93005; 93010; 96374; 99284; J1100; Q9967

== ENCOUNTER 2025-01-08 19:18 | Emergency (ER) | payer MEDICARE, SELFPAY ==
[2022-04-18 03:55] VITALS: RESP 16
[2022-05-25 14:41] VITALS: PULSE 84; RESP 20; O2SAT 99
[2023-05-28 16:17] VITALS: BMI 30.2
[2025-01-08 19:24] VITALS: BP 144/70; PULSE 92; RESP 18; TEMP 36.3; O2SAT 94; BMI 29.0
--- NOTE | 2025-01-08 19:34 | DI.RAD.S_ITS ---
PROCEDURE: XR TOE RT MIN 2V INDICATIONS: stubbed toe TECHNIQUE: 3 views of the 1st toe(s) acquired. COMPARISON: None. FINDINGS: Bones: No fractures or dislocations. No suspicious bony lesions. Soft tissues: No suspicious soft tissue densities. IMPRESSION: No acute bony abnormality. Approved by: Garret Bentley M.D. on 01/08/2025 at 19:04
--- NOTE | 2025-01-08 20:58 | ED.LOWEXIN ---
HPI - Extremity Injury (Lower) General Chief Complaint: Extremity Injury, Lower Stated Complaint: R Big Toe Laceration Time Seen by Provider: 01/08/25 20:51 Source: patient Mode of arrival: Wheelchair History of Present Illness HPI Narrative: 79-year-old male with past medical history of hypertension, CAD, CHF, diabetes, hyperlipidemia, comes into the ED from home for evaluation of right toe injury, states that he stubbed his toe on a cabinet, states he is wheelchair bound, is on clopidogrel, denies any other injuries or issues at this time. Related Data Home Medications ?Medication ?Instructions ?Recorded ?Confirmed acetaminophen 325 mg tablet 500 mg PO Q6H PRN Fever/Mild Pain 06/10/22 06/30/24 (1-3) metoprolol succinate 25 mg 12.5 - 25 mg PO DAILY 05/28/23 06/30/24 tablet,extended release 24 hr fluticasone propionate 50 spray intranasal 07/15/23 06/30/24 mcg/actuation nasal spray,suspension Previous Rx's ?Medication ?Instructions ?Recorded polyethylene glycol 3350 17 gram 17 gm PO DAILY PRN Constipation 05/27/22 oral powder packet #10 ea blood sugar diagnostic (OneTouch #100 ea 09/30/22 Verio test strips) albuterol sulfate 90 mcg/actuation 1 puff PO Q6H PRN for wheezing 12/19/23 aerosol inhaler #8.5 grams Disabled Parking Permit #1 ea 04/12/24 methocarbamol 500 mg tablet 500 mg PO TID PRN muscle spasm #90 06/29/24 tabs fluticasone fur. 200 mcg-umeclid 1 inh inhalation DAILY #60 ea 06/30/24 62.5 mcg-vilant 25 mcg inhalat.powder (Trelegy Ellipta) ropinirole 4 mg tablet 6 mg (1.5 x 4 mg) PO BID #270 tabs 09/14/24 clopidogrel 75 mg tablet 75 mg PO DAILY #90 tabs 10/11/24 atorvastatin 20 mg tablet 20 mg PO ONCE PM #90 tabs 10/25/24 losartan 25 mg tablet 25 mg PO DAILY #90 tabs 10/25/24 semaglutide 1 mg/dose (4 mg/3 mL) 1 mg (0.75 mL) SUBCUT QWEEK #3 mL 10/28/24 subcutaneous pen injector trazodone 50 mg tablet 50 mg PO ONCE PM for insomnia #30 01/06/25 tabs cephalexin 500 mg capsule 500 mg PO Q6H 7 days #28 caps 01/08/25 Allergies Allergy/AdvReac Type Severity Reaction Status Date / Time No Known Drug Allergies Allergy Verified 01/08/25 19:24 Review of Systems Review of Systems Narrative: General: Denies fever, chills, weight loss HEENT: Denies headache, eye drainage, eye irritation, head trauma, sore throat, voice change Cardiovascular: Denies any chest pain, palpitations, tachycardia Respiratory: Denies any shortness of breath, cough, wheeze, stridor GI/: Denies any abdominal pain, nausea, vomiting, diarrhea, bright red blood per rectum, melanotic stools, urinary frequency, urinary retention, dysuria, hematuria MSK: Right big toe injury Skin: Denies any rashes, lesions, discoloration Neuro: Denies any headache, lightheadedness, dizziness, fainting, weakness Psych: Denies SI/HI Patient History Medical History [id number] disease History of non-ST elevation myocardial infarction (NSTEMI) Anticoagulated on heparin Mixed hyperlipidemia Hypertension, essential Peripheral vascular disease of extremity Sleep apnea in adult Bilateral nephrolithiasis History of renal calculi Acute renal failure syndrome Brain concussion Basal cell carcinoma Duodenal ulcer History of malignant neoplasm of colon (05/29/15) Complete obstruction of small intestine (05/28/23) Hernia Arthritis Surgical History History of heart artery stent (04/18/22) Hx of cystoscopy (03/25/22) Hx of cystoscopy (12/03/21) Hx of cystoscopy (10/16/21) S/P ureteral stent placement Status post vascular bypass (2013) Status post colectomy (~1995) Family History Father Ulcer History of blood clots Mother No known problems Social History marital status: household members: spouse lives independently: Yes occupational status: other Smoking Status: Former smoker alcohol intake: current substance use type: does not use Type(s) of exercise: bicycling frequency: 1-2 times per week Smoking Status: Former smoker alcohol intake frequency: a few times a month Exam Narrative Exam Narrative: General: Cooperative, well-developed, not in acute distress HEENT: Normocephalic, atraumatic, PERRLA, normal sclera, eyelids normal Neck: Active full range of motion, atraumatic Chest: Normal to inspection, negative crepitus, no overlying erythema ecchymosis Respiratory: Normal respiratory effort, not in acute respiratory distress, clear to auscultation bilaterally negative cough, wheeze, tachypnea, rhonchi, rales Cardiology: Regular rate rhythm negative gallop, murmur, rubs GI/: No tenderness to palpation, soft, non rigid, normal to inspection, exam deferred MSK: Full active range of motion in all 4 extremities, atraumatic, no tenderness to palpation of any bony prominences Skin: Patient with skin tear noted to the plantar aspect of the left great toe, laceration, no damage to the nail bed Neuro: Alert awake oriented x3, moves all 4 extremities spontaneously, cranial nerves intact, able to answer all questions appropriately follows commands appropriately Psych: Cooperative, negative suicidal or homicidal ideations Initial Vital Signs Initial Vital Signs: Vital Signs Temperature 97.4 F L 01/08/25 19:24 Pulse Rate 92 H 01/08/25 19:24 Respiratory Rate 18 01/08/25 19:24 Blood Pressure 144/70 H 01/08/25 19:24 Pulse Oximetry 94 01/08/25 19:24 Oxygen Delivery Method Room Air 01/08/25 19:24 Course Orders Ordered: ED Orders 01/08/25 19:34 XR toe RT min 2V Stat Vital Signs Vital signs: Vital Signs - 8 hr 01/08/25 19:24 Temperature 97.4 F L Pulse Rate 92 H Respiratory Rate 18 Blood Pressure 144/70 H Pulse Oximetry 94 Oxygen Delivery Method Room Air MDM - Extremity Injury (Lower) Differential Diagnosis Differential diagnosis: Likely other (Fracture, laceration, avulsion, skin tear) Imaging Data Extremity x-ray #1: Radiologist's Impression: [address] [address] XRay Report Signed Patient: Shantanu Underwood MR#: [id number] : 1945 Acct:[id number] Age/Sex: 79 / M Date of Service: 01/08/25 Loc: ED Accession Number: [id number] Procedure: XR toe RT min 2V Ordering Provider: Tang Razo D.O. PROCEDURE: XR TOE RT MIN 2V INDICATIONS: stubbed toe TECHNIQUE: 3 views of the 1st toe(s) acquired. COMPARISON: None. FINDINGS: Bones: No fractures or dislocations. No suspicious bony lesions. Soft tissues: No suspicious soft tissue densities. IMPRESSION: No acute bony abnormality. MDM Narrative Medical decision making narrative: 79-year-old male with past medical history of diabetes, wheelchair-bound at baseline, hyperlipidemia hypertension, comes into the ED from home for evaluation of left great toe pain, he states that he bumped his left great toe on a cabinet prior to arrival unsure of tetanus vaccination this was updated here, on exam skin tear noted to the plantar aspect of the left great toe no laceration noted, therefore patient was given topical antibiotics, he will also be prophylactically given antibiotics given his baseline immobility and history of diabetes. He is given strict return precautions he verbalized understanding of this and agrees to being discharged home with outpatient follow up Discharge Plan Departure Patient Disposition: Home Clinical Impression: Injury of toe Activity Restrictions/Additional Instructions: Please follow up with your primary care doctor Please read the discharge instructions sheet carefully and bring all papers to all doctor follow-up visits, as it may contain information that your doctor may want to see. Disease processes change and evolve, if your symptoms worsen or if you develop any new symptoms that are concerning to you please return for evaluation. Your evaluation today does not show any evidence of any life-threatening/serious illnesses requiring admission to the hospital or surgery. Please follow-up with your doctor for re-evaluation in approximately 1 day. Seek immediate medical attention for any worrisome symptoms. *If you do not have a primary care provider please contact the [facility] Resource line at [phone]. They will ask some questions about your medical history and help get you set up with a doctor in the community. Prescriptions: New cephalexin 500 mg capsule 500 mg PO Q6H 7 Days Qty: 28 0RF No Action fluticasone propionate 50 mcg/actuation spray,suspension intranasal methocarbamol 500 mg tablet 500 mg PO TID PRN (Reason: muscle spasm) Qty: 90 0RF (DME) OneTouch Verio test strips Strip See Rx Instructions .ROUTE .MEDSUPPLY Qty: 100 0RF Rx Instructions: Use to test blood glucose ONCE DAILY albuterol sulfate 90 mcg/actuation HFA aerosol inhaler 1 puff PO Q6H PRN (Reason: for wheezing) Qty: 8.5 6RF (DME) Disabled Parking Permit See Rx Instructions .ROUTE .MEDSUPPLY Qty: 1 0RF Rx Instructions: I find this person to be disabled ropinirole 4 mg tablet 6 mg PO BID Qty: 270 1RF clopidogrel 75 mg tablet 75 mg PO DAILY Qty: 90 2RF losartan 25 mg tablet 25 mg PO DAILY Qty: 90 2RF atorvastatin 20 mg tablet 20 mg PO ONCE PM Qty: 90 2RF semaglutide 1 mg/dose (4 mg/3 mL) pen injector 1 mg SUBCUT QWEEK Qty: 3 2RF trazodone 50 mg tablet 50 mg PO ONCE PM Qty: 30 2RF polyethylene glycol 3350 17 gram Powder In Packet 17 gm PO DAILY PRN (Reason: Constipation) Qty: 10 0RF metoprolol succinate 25 mg tablet extended release 24 hr 12.5 - 25 mg PO DAILY Patient Comments: TAKE 1/2 to ONE TABLET BY MOUTH ONE TIME DAILY acetaminophen 325 mg tablet 500 mg PO Q6H PRN (Reason: Fever/Mild Pain (1-3)) Trelegy Ellipta 200-62.5-25 mcg blister with device 1 inh inhalation DAILY Qty: 60 11RF Rx Instructions: rinse mouth with water, gargle and spit after each use Referrals: Ben Segura MD [Primary Care Provider, Family Practice] Stand Alone Forms: Patient Portal/API
[2025-01-08] MEDS: cephALEXin 250 MG CAPSULE 500 MG PO (21:14)
[2025-01-08] MEDS: BACITRACIN OINT 0.9 GM PCKT 1 APPLIC TOP (21:14)
[2025-01-08] MEDS: TET,DIPH,PERTUSS(ACELL),VAC/PF 0.5 ML SYRINGE IM (21:14)
== END 2025-01-08 21:24 | disposition home or self-care (01) ==
PROVIDERS: Emergency Provider Student in an Organized Health Care Education/Training Program; PCP Family Medicine
DX: S99.921A Unspecified injury of right foot, initial encounter (principal); W22.8XXA Striking against or struck by other objects, initial encounter; Z23 Encounter for immunization
CPT/HCPCS: 73660; 90471; 99283; 90715